=== PATIENT | male | born 1960 | race Caucasian/White ===

== ENCOUNTER → 2020-07-24 01:32 | Outpatient (CLI) | payer MEDICARE, SELFPAY ==
[2020-07-24 18:55] LABS: SARS-CoV-2 RNA PCR Negative
== END ==
PROVIDERS: PCP Internal Medicine; Visit Provider Internal Medicine Critical Care Medicine
DX: R68.89 Other general symptoms and signs (principal); Z20.822 Contact with and (suspected) exposure to COVID-19
CPT/HCPCS: C9803; U0003; U0005

== ENCOUNTER 2020-07-26 10:10 | Outpatient (CLI) | payer MEDICARE, SELFPAY ==
--- NOTE | 2020-08-10 14:02 | WPDSLEEPSTUD ---
Sleep Study Ordering Provider: Manish Crooks, Interpreting Physician: Sushma Suresh MD Sleep Study Type: CPAP Titration Height: 1.85 m Weight: 193.214 kg Body Mass Index: 56.2 Neck Circumference (inches): 23 [place]: 3 Reason for Sleep Study Obstructive sleep apnea, needs new equipment, needs to have a new CPAP pressure Sleep History Aman Newberry is a 60 year old man with obstructive sleep apnea who is in need of new equipment. He prior study was over 5 years ago, and the records are not available to review. He does not currently have an established DME company. This was ordered as a split night study to document his need for CPAP. He was not able to fall asleep for the baseline portion study. The tech placed him on CPAP in order to allow the patient to fall asleep more comfortably. He could not tolerate pressures at CPAP 6 cm and 10 cm, and after being switched to BiPAP at 12/8 then 16/, still he was not able to sleep. He was hypoxemic with saturation ranging between 81 and 84% at all settings. He decided to leave A at 1:40 a.m. [facility] Past Medical History Medical History (Updated 08/10/20 @ 14:41 by Sushma Suresh MD) COPD (chronic obstructive pulmonary disease) Eczema Essential hypertension HLD (hyperlipidemia) KATIE (obstructive sleep apnea) Type 2 diabetes mellitus Family History Family History (Updated 05/13/19 @ 07:56 by Gloria Noel [facility]) Mother Hypertension Social History Social History Smoking status: Current every day smoker Smoking end date: 03/16/14 Alcohol intake: never Medications Home Medications Medication Instructions Recorded Confirmed Type lbhqqgcl-xle-kjqxn acid 300 1 tablet PO DAILY 05/13/19 03/02/20 History mcg-lycopene 600 mcg-lutein 300 mcg tablet sertraline 50 mg tablet 50 mg PO DAILY #90 tablet 11/14/19 03/02/20 Rx albuterol sulfate 90 mcg/actuation 2 puff INHALATION Q4-6H PRN #6.7 g 02/23/20 03/02/20 Rx aerosol inhaler amlodipine 10 mg tablet 10 mg PO DAILY #90 tablet 03/02/20 03/02/20 Rx amoxicillin 875 mg-potassium 1 tablet PO Q12H #14 tablet 03/02/20 03/02/20 Rx clavulanate 125 mg tablet lisinopril 40 mg tablet See Rx Instructions .ROUTE 04/09/20 Rx .COMPLEX #90 tablet triamcinolone acetonide 0.1 % 1 applic TOPICAL BID #15 g 04/17/20 Rx topical cream Medications: Other medications on his office note include : metformin 1000 mg twice a day Spiriva Respimat 2.5 mcg two puffs daily Sleep Procedure This test was performed using the Fronto multiple channel system including EOG, EEG, submental EMG, EKG, nasal and oral airflow using thermistors and nasal pressure sensors, chest and abdominal belts for body position data, and pulse oximetry. Video monitoring was also performed. The study was scored using [facility] guidelines. The patient was started on CPAP using a large ResMed Phillips FX nasal mask and heated humidity at 6 cm, increased to 10cm, then switched to BiPAP /8, increased to 16/12. At one point, he wanted to change masks, and used a Mirage nasal mask, with the final mask being the Phillips FX nasal mask. The patient was not able to fall asleep, and decided to go home against medical advice at .... Sleep Architecture The recording time was 61.6 minutes at baseline, without sleep. During the attempts at titration, the recording time was 62.8 minutes without sleep. Respiratory Analysis There were not events as the patient had no sleep. Arousals Not applicable. Periodic Limb Movements Not applicable Oximetry Data During the baseline portion, the lowest saturation was 82% with 17 minutes, 17.6% of the time, spent below 88%. During the attempted titration, the lowest saturation was 81% with 40.7 minutes, 50% of the time, spent below 88%. Snoring Profile No snoring noted as the patient was not asleep. Cardiac Profile EKG showed sinus rhythm and sinus bradycardia with a mean heart rate of 65. EEG Profile EEG w
[2020-08-10 14:39] VITALS: BMI 56.2
== END 2020-07-26 10:11 | disposition home or self-care (01) ==
LOC: ANHCSM 10:10
PROVIDERS: PCP Internal Medicine; Visit Provider Internal Medicine
DX: G47.30 Sleep apnea, unspecified (principal); G47.33 Obstructive sleep apnea (adult) (pediatric); R09.02 Hypoxemia
CPT/HCPCS: 95811

== ENCOUNTER 2024-07-20 17:42 | Inpatient (IN) | payer MEDICARE, SELFPAY ==
[2024-07-20] VITALS (9 sets, daily range): BP systolic 152–157; BP diastolic 93–138; PULSE 102–124; RESP 27–36; TEMP 36.8–37; O2SAT 94–97; BMI 60.2
--- NOTE | ~2024-07-20 | CT_ITS ---
CT Scan of the Chest without Contrast: Clinical Indication: Pneumonia Technique: Contiguous sections were acquired throughout the chest without intravenous contrast. Dose reduction technique was used on this scan by utilizing automated exposure control and iterative recon struction technique. The dose-length product (DLP) was 1283.88 mGy-cm. Findings: There is no evidence of any significant mediastinal, hilar or axillary lymphadenopathy. The mediastin al soft tissues appear normal. There is no evidence of pleural or pericardial effusion. There is mild bibasilar atelectasis or scarring. No definite evidence for pneumonia. Images through the upper abdomen reveal no abnormalities. Impression: Mild bibasilar atelectasis or scarring, otherwise clear lungs. Reviewed, dictated and finalized at location . Impression: Mild bibasilar atelectasis or scarring, otherwise clear lungs.
--- NOTE | ~2024-07-20 | US_ITS ---
EXAMINATION: US venous doppler [facility] DATE: 07/21/2024 14:39 INDICATION: Dyspnea TECHNIQUE: Grayscale ultrasound images without and with compression and Doppler ultrasound images of the bilateral lower extremity veins were obtained. COMPARISON: None. FINDINGS: The visualized portions of right common femoral vein, profunda (deep) femoral vein, femoral vein, pop liteal vein, posterior tibial veins, peroneal veins, gastrocnemius vein and greater saphenous vein ou tflow are patent. The visualized portions of left common femoral vein, profunda femoral vein, femoral vein, popliteal v ein, posterior tibial veins, peroneal veins, gastrocnemius vein and greater saphenous vein outflow ar e patent. IMPRESSION: 1. No deep venous thrombosis in either lower limb. Reviewed, dictated and finalized at location A.
--- NOTE | ~2024-07-20 | XR_ITS ---
CHEST RADIOGRAPH CLINICAL HISTORY: SOA . COMPARISON: None available TECHNIQUE: Single portable view of the chest. FINDINGS The cardiomediastinal silhouette is enlarged. The lungs are clear. IMPRESSION: No focal infiltrate or effusion. Reviewed, dictated and finalized at location A.
--- NOTE | 2024-07-20 17:54 | ECG_ITS ---
Test Date: 2024-07-20 17:56:45 Measurements Intervals [place] Rate: 109 P: 0 NM: 0 QRS: -20 QRSD: 113 T: 78 QT: 323 QTc: 435 Interpretive Statements ATRIAL FIBRILLATION WITH RAPID VENTRICULAR RESPONSE LOW QRS VOLTAGE [QRS DEFLECTION < 0.5/1.0 mV IN LIMB/CHEST LEADS] INCOMPLETE RIGHT BUNDLE BRANCH BLOCK [90+ ms QRS DURATION, TERMINAL R IN V1/V2, 40+ ms S IN I/aVL/V4/V5/V6] ANTEROSEPTAL MYOCARDIAL INFARCTION , OF INDETERMINATE AGE [40+ ms Q WAVE IN V1-V4] No previous ECG available for comparison Electronically Signed On 07-21-2024 14:10:27 CDT by Joycelyn Adams
[2024-07-20 18:19] LABS: Basophils Percent Auto 0.3 % (0.2-1.2); Eosinophils Absolute Auto 0.1 K/mm3 (0-0.3); Eosinophils Percent Auto 0.3 % (0-4.4); Hematocrit 51.8 % (42.0-52.0); Immature Granulocyte Absolute 0.07 K/mm3 (0.00-0.031); Immature Granulocyte Percent A 0.5 % (0-0.5); Lymphocytes Absolute Auto 1.95 K/mm3 (0.9-3.2); Lymphocytes Percent Auto 12.7 % (18.3-44.2); Mean Corpuscular Hemoglobin 28.5 pg (26-34); Mean Corpuscular Volume 98.3 fl (80-100); Mean Platelet Volume 9.5 fl (7.4-10.4); Monocytes Percent Auto 6.8 % (2.6-8.5); Neutrophils Absolute Auto 12.2 K/mm3 (1.3-6.7); Neutrophils Percent Auto 79.4 % (45.5-73.1); Nucleated Red Blood Cells Perc 0.1 % (0.0-0.2); Platelet Count Result 226 k/mm3 (150-375); Red Blood Count 5.27 M/mm3 (4.6-6.20); Red Cell Distribution Width 14.7 % (11.5-14.5); White Blood Count 15.3 K/mm3 (4.5-10.0)
--- OUTSIDE RECORDS SUMMARY | 2024-07-20 18:19 | XMS_ITS | Clinical Summary ---
Author Organization [facility] Address [address] 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
--- OUTSIDE RECORDS SUMMARY | 2024-07-20 18:19 | XMS_ITS | Clinical Summary ---
Author Organization [facility] Address [address] [facility] [address] [place] [address] Care Team Providers Care Emergency Man Name Role Phone Unavailable Primary Care Provider Unavailabl e Social History Tobacco Use Types Packs/Day Years Used Date Smoking Tobacco: Never Assessed Sex and Gender Information Value Date Recorded Sex Assigned at Not on file Legal Sex Male 8:07 PM CDT Gender Identity Not on file Sexual Orientation Not on file Plan of Treatment Health Maintenance Due Date Last Done Comments Colorectal Cancer Screening Colonoscopy (10 Years) 1958 Hepatitis C 1976 DTaP, Tdap and Td Vaccines ( 1 - Tdap) 1977 Pneumococcal Vaccine: 50+ Ye ars (1 of 1 - PCV) 2008 Zoster Vaccines (1 of 2) 2008 COVID-19 Vaccine ( - 2023-2 5 season) 2023 RSV Immunization or 60+ Years (1 - 1-dose 75+ series) 2033 Meningococcal B Vaccine Aged Out No l onger eligible based on patient's age to complete this topic Meningococcal Vaccine Aged Out No delonte slade eligible based on patient's age to complete this topic RSV Immunizations Under 20 Months Aged Out No longer eligible based on patient's age to complete this topic
--- OUTSIDE RECORDS SUMMARY | 2024-07-20 18:19 | XMS_ITS | Encounter Summary ---
Author Organization [facility] Address 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
--- OUTSIDE RECORDS SUMMARY | 2024-07-20 18:19 | XMS_ITS | CONTINUITY OF CARE DOCUMENT ---
Author Name black cleaning Address Unknown Organization [facility] Address [address] [place] [address] Phone [phone] Care Team Providers Care Terrazzo Supervisor Name Role Phone Rogelio VOGT, Samaria Unavailable MOHAN OLIVER MD Unavailable MOHAN OLIVER MD Unavailable PROBLEMS Condition Status Date Provider Notes Gout active MOHAN OLIVER MD Obesity active MOHAN OLIVER MD HTN essential active MOHAN OLIVER MD Depression completed - MOHAN OLIVER MD Cellulitis and abscess of foot, except toes completed - MOHAN OLIVER MD Tobacco use, quit active MOHAN OLIVER MD ENCOUNTERS Date Type Provider Location Encounter Diag nosis - In-person encounter Office Visit MOHAN OLIVER MD [place] [facility] - In-person encounter Office Visit MOHAN OLIVER MD [place] [facility] DepressionCellulitis and abscess of foot, except toesTobacco use, quit - In-person encounter Office Visit MOHAN OLIVER MD [place] [facility] - In-person encounter Office Visit Ameena Ryan [place] [facility] - In-person encounter Office Visit Ameena Ryan [place] [facility] - In-person encounter Office Visit MOHAN OLIVER MD [place] [facility] - In-person encounter Office Visit MOHAN OLIVER MD [place] [facility] GoutObesityHTN essential - In-person encounter Office Visit [facility] Office - In-person encounter Office Visit [facility] Office - In-person encounter Office Visit [facility] Office HISTORY OF MEDICATION USE Medication Status Instructions Dates Provider Indications Com ments CEPHALEXIN 500 MG ORAL TABLET active one capsule 4 times daily until all taken 5 Dejan Alba RN SERTRALINE HCL 50 MG ORAL TABLET active ONE TABLET DAILY 0 MOHAN OLIVER MD TOPICORT 0.25 % EXTERNAL CREAM completed APPLY LOCALLY TWICE DAILY 9 - 3 MOHAN OLIVER MD HYDROXYZINE HCL 50 MG ORAL TABLET completed ONE TABLET TWICE DAILY - 3 MOHAN OLIVER MD PREDNISONE 20 MG ORAL TABLET completed ONE TABLET TWICE DAILY 9 - 3 MOHAN OLIVER MD SAPHRIS 10 MG SUBLINGUAL TABLET SUBLINGUAL completed ONE TABLET AT BEDTIME 0 - 9 MOHAN OLIVER MD DIVALPROEX SODIUM 500 MG ORAL TABLET DELAYED RELEASE completed ONE TABLET DAILY 0 - 9 MOHAN OLIVER MD ZOLOFT 50 MG ORAL TABLET completed ONE TABLET DAILY 0 - 2 MOHAN OLIVER MD POTASSIUM CHLORIDE DELTA ER 10 MEQ ORAL TABLET EXTENDED RELEASE active ONE TABLET DAILY 0 MOHAN OLIVER MD LASIX 40 MG ORAL TABLET active ONE TABLET DAILY 0 MOHAN OLIVER MD LISINOPRIL 40 MG ORAL TABLET active ONE TABLET TWICE DAILY 0 MOHAN OLIVER MD INSURANCE PROVIDERS Payer name Policy type / Coverage type [place] [employer] party ID [place] [employer] Medicare [id number] HISTORY OF PROCEDURES Procedure Date Procedure Name Provider Procedure Notes S tatus ePrescribe - Check t his box if eRx is used MOHAN OLIVER MD completed
[2024-07-20] MEDS: IPRATROPIUM BR 0.02% INH SOLN 0.5 MG/2.5 ML VIAL 1.5 MG INHALATION (18:23)
[2024-07-20] MEDS: ALBUTEROL SULFATE NEB 2.5 MG/3 ML INH 15 MG INHALATION (18:24)
[2024-07-20 18:31] LABS: Alveolar/Arterial O2 Gradient 118.3 mmHg; Base Excess ABG 0.8 mEq/l (+/-2.0); Carboxyhemoglobin 3.2 % THb (0-2.0); Fractional Inspired Oxygen 36 %; HCO3 ABG 29.4 mEq/l (22.0-26.0); Methemoglobin ABG 0.3 %THb (0-1.5); Oxygen Content ABG 18.6 %vol (16.0-22.0); Oxygen Saturation ABG 89.3 % (95.0-100.0); PO2 ABG 64.3 mmHg (80.0-100.0); PO2 FiO2 Ratio Arterial Blood 1.79 %; Reduced Hemoglobin 10.5 %THb (0-5.0); Total Hemoglobin 15.4 g/dL (12.0-18.0)
[2024-07-20 18:34] LABS: Device NASAL CANNULA; Modified Allen's Test Pass; PCO2 ABG 63.9 mmHg (35.0-45.0); Site Drawn RIGHT RADIAL
[2024-07-20 18:38] LABS: Alanine Aminotransferase 48 U/L (6-50); Albumin Level 4.2 g/dL (3.5-5.1); Alkaline Phosphatase 93 U/L (38-126); Anion Gap 7 mmol/L (4-12); Aspartate Amino Transferase 79 U/L (17-59); Bilirubin,Total 0.8 mg/dL (0.2-1.3); Blood Urea Nitrogen 20 mg/dL (9-20); Carbon Dioxide 38 mmol/L (22-30); Chloride 96 mmol/L (98-107); Estimated CRCL calculation 135 ml/min; Estimated Glomerular Filt Rate > 60; Glucose 158 mg/dL (65-110); Potassium 4.4 mmol/L (3.4-5.0); Sodium 141 mmol/L (137-145)
[2024-07-20 18:39] LABS: Alanine Aminotransferase 49 U/L (6-50); Albumin Level 4.3 g/dL (3.5-5.1); Alkaline Phosphatase 98 U/L (38-126); Anion Gap 8 mmol/L (4-12); Aspartate Amino Transferase 81 U/L (17-59); Bilirubin,Total 0.9 mg/dL (0.2-1.3); Blood Urea Nitrogen 20 mg/dL (9-20); Carbon Dioxide 38 mmol/L (22-30); Chloride 96 mmol/L (98-107); Estimated CRCL calculation 135 ml/min; Estimated Glomerular Filt Rate > 60; Glucose 159 mg/dL (65-110); Potassium 4.4 mmol/L (3.4-5.0); Sodium 142 mmol/L (137-145)
[2024-07-20 18:52] LABS: Troponin I 0.013 ng/mL (0.000-0.034)
[2024-07-20 19:14] LABS: NT Pro B Type Natriuretic Pept 2930 pg/mL (19.9-100)
--- NOTE | 2024-07-20 19:31 | ED_ITS ---
HPI - SOB/Dyspnea General Chief Complaint: Shortness of Breath/Dyspnea Stated Complaint: SOB History of Present Illness HPI Narrative: Patient is a 64-year-old male who presents ER with shortness of breath. Worsening over last 2 weeks. Significantly worsened by exertion. History of KATIE and wears BiPAP at home. No chest pain. No productive cough. No fevers or chills. Denies chest pressure. Patient with rapid heart rate that is irregular. Denies history of atrial fibrillation. Patient also reports 2 weeks ago he began get infection on his face where he had yellowed using. He has been applying topical antibiotic without improvement. Related Data Home Medications ?Medication ?Instructions ?Recorded ?Confirmed ?Last Taken ?Type suvsmfkw-xj-xhrgn 300 mcg-K 60 1 tablet PO DAILY 05/13/19 03/02/20 Unknown History mcg-lycop 600 mcg-lutein 300 mcg tablet (Centrum Silver Men) Allergies Allergy/AdvReac Type Severity Reaction Status Date / Time metformin Allergy Unknown itching, Verified 03/02/20 08:40 SOB Review of Systems 2 Review of Systems: All systems reviewed & are unremarkable except as noted in HPI and below Constitutional: Constitutional: Reports no additional constitutional complaints ENT: Reports system reviewed and no additional complaints, except as documented Cardiovascular: Cardiovascular: Reports no additional cardiovascular complaints Respiratory: Respiratory: Reports no additional respiratory complaints Gastrointestinal: Gastrointestinal: Reports no additional gastrointestinal complaints Integumentary/Breasts: Skin/Breast: Reports system reviewed and no additional complaints, except as docu [facility] Past Medical History Medical History (Updated 07/20/24 @ 22:43 by Pedro Kraft MD) Eczema KATIE (obstructive sleep apnea) Type 2 diabetes mellitus COPD (chronic obstructive pulmonary disease) HLD (hyperlipidemia) Essential hypertension Family History Family History (Updated 05/13/19 @ 07:56 by Gloria Noel CMA) Mother Hypertension Social History Social History Smoking status: Current every day smoker Smoking end date: 03/16/14 Alcohol intake: never Exam 2 Narrative: GENERAL: Ill-appearing, morbidly obese, and in no acute distress. HEAD: Normocephalic, atraumatic. EYES: PERRL and EOMI. ENT: Mucous membranes moist. CHEST: Mild respiratory distress with diffuse wheezing. HEART: Irregular irregular rate and rhythm that is tachycardic. Normal peripheral pulses. ABDOMEN: Soft, nontender, nondistended. EXTREMITIES: Normal range of motion. No edema. SKIN: Warm, dry. Impetigo like infection to the face with erythema of the skin in but most notably over the chin with cracks in the skin with yellow crusting. NEURO: Alert and oriented x3. PSYCH: Normal mood and affect. Course Course Emergency Course: Patient feeling improved with BiPAP. Lungs improving with hour long nebulizer treatment. Patient with persistent tachycardia. Will give diltiazem. Recommend admission hospitalist service. Patient did receive Decadron from EMS. Vital Signs Vital signs: Vital Signs Temperature 98.6 F 07/20/24 17:51 Pulse Rate 102 H 07/20/24 17:51 Respiratory Rate 28 H 07/20/24 17:51 Blood Pressure 157/138 H 07/20/24 17:51 Pulse Oximetry 96 07/20/24 17:51 Oxygen Delivery Nasal Cannula 07/20/24 17:51 Oxygen Flow Rate 4 07/20/24 17:51 Temperature 98.6 F 07/20/24 17:51 Pulse Rate 112 H 07/20/24 21:35 Respiratory Rate 27 H 07/20/24 21:35 Blood Pressure 157/138 H 07/20/24 17:51 Pulse Oximetry 94 07/20/24 21:35 Oxygen Delivery BiPAP 07/20/24 21:35 Oxygen Flow Rate 4 07/20/24 18:14 MDM - SOB/Dyspnea Lab Data 07/20/24 18:02 07/20/24 18:04 Labs: Lab Results 07/20/24 07/20/24 07/20/24 Range/Units 18:02 18:04 18:15 WBC 15.3 H (4.5-10.0) K/mm3 RBC 5.27 (4.6-6.20) M/mm3 Hgb 15.0 (14.0-18.0) g/dL Hct 51.8 (42.0-52.0) % MCV 98.3 (80-100) fl MCH 28.5 (26-34) pg MCHC 29.0 L (32-36) g/dl RDW 14.7 H (11.5-14.5) % Plt Count 226 (150-375) k/mm3 MPV 9.5 (7.4-10.4) fl Immature Gran % (Auto) 0.5 (0-0.5) % Neut % (Auto) 79.4 H (45.5-73.1) % Lymph % (Auto) 12.7 L (18.3-44.2) % Bell % (Auto) 6.8 (2.6-8.5) % Eos % (Auto) 0.3 (0-4.4) % Baso % (Auto) 0.3 (0.2-1.2) % Lymph # (Auto) 1.95 (0.9-3.2) K/mm3 Bell # (Auto) 1.0 H (0.1-0.6) K/mm3 Eos # (Auto) 0.1 (0-0.3) K/mm3 Baso # (Auto) 0.0 (0.0-0.1) K/mm3 Abs Immat Gran (auto) 0.07 H (0.00-0.031) K/mm3 Absolute Neuts (auto) 12.2 H (1.3-6.7) K/mm3 Absolute Nucleated RBC 0.020 H (0.0-0.012) K/mm3 Nucleated RBC % 0.1 (0.0-0.2) % Methemoglobin 0.3 (0-1.5) %THb Sodium 142 141 (137-145) mmol/L Potassium 4.4 4.4 (3.4-5.0) mmol/L Chloride 96 L 96 L (98-107) mmol/L Carbon Dioxide 38 H 38 H (22-30) mmol/L Anion Gap 8 7 (4-12) mmol/L BUN 20 20 (9-20) mg/dL Creatinine 0.82 0.82 (0.7-1.3) mg/dL Estim Creat Clear Calc 135 135 ml/min Estimated GFR > 60 > 60 (59 - ) Glucose 159 H 158 H (65-110) mg/dL Calcium 9.0 9.0 (8.4-10.2) mg/dL Total Bilirubin 0.9 0.8 (0.2-1.3) mg/dL AST 81 H 79 H (17-59) U/L ALT 49 48 (6-50) U/L Alkaline Phosphatase 98 93 (38-126) U/L Troponin I 0.013 (0.000-0.034) ng/mL NT-Pro-B Natriuret Pep 2930 H (19.9-100) pg/mL Total Protein 9.0 H 9.0 H (6.3-8.2) g/dL Albumin 4.3 4.2 (3.5-5.1) g/dL Influenza A (RT-PCR) Influenza B (RT-PCR) RSV (RT-PCR) SARS-CoV-2 RNA (RT-PCR) 07/20/24 Range/Units 21:49 WBC (4.5-10.0) K/mm3 RBC (4.6-6.20) M/mm3 Hgb (14.0-18.0) g/dL Hct (42.0-52.0) % MCV (80-100) fl MCH (26-34) pg MCHC (32-36) g/dl RDW (11.5-14.5) % Plt Count (150-375) k/mm3 MPV (7.4-10.4) fl Immature Gran % (Auto) (0-0.5) % Neut % (Auto) (45.5-73.1) % Lymph % (Auto) (18.3-44.2) % Bell % (Auto) (2.6-8.5) % Eos % (Auto) (0-4.4) % Baso % (Auto) (0.2-1.2) % Lymph # (Auto) (0.9-3.2) K/mm3 Bell # (Auto) (0.1-0.6) K/mm3 Eos # (Auto) (0-0.3) K/mm3 Baso # (Auto) (0.0-0.1) K/mm3 Abs Immat Gran (auto) (0.00-0.031) K/mm3 Absolute Neuts (auto) (1.3-6.7) K/mm3 Absolute Nucleated RBC (0.0-0.012) K/mm3 Nucleated RBC % (0.0-0.2) % Methemoglobin (0-1.5) %THb Sodium (137-145) mmol/L Potassium (3.4-5.0) mmol/L Chloride (98-107) mmol/L Carbon Dioxide (22-30) mmol/L Anion Gap (4-12) mmol/L BUN (9-20) mg/dL Creatinine (0.7-1.3) mg/dL Estim Creat Clear Calc ml/min Estimated GFR (59 - ) Glucose (65-110) mg/dL Calcium (8.4-10.2) mg/dL Total Bilirubin (0.2-1.3) mg/dL AST (17-59) U/L ALT (6-50) U/L Alkaline Phosphatase (38-126) U/L Troponin I (0.000-0.034) ng/mL NT-Pro-B Natriuret Pep (19.9-100) pg/mL Total Protein (6.3-8.2) g/dL Albumin (3.5-5.1) g/dL Influenza A (RT-PCR) Pending Influenza B (RT-PCR) Pending RSV (RT-PCR) Pending SARS-CoV-2 RNA (RT-PCR) Pending ABG Data ABG results: 07/20/24 18:15 Puncture Site Right radial ABG pH 7.280 L* ABG pCO2 63.9 H* ABG pO2 64.3 L ABG PO2/FiO2 Ratio 1.79 ABG HCO3 29.4 H ABG O2 Saturation 89.3 L ABG O2 Content 18.6 ABG Base Excess 0.8 A-a Gradient 118.3 Oxyhemoglobin 86.0 L* Carboxyhemoglobin 3.2 H Reduced Hemoglobin 10.5 H Total Hemoglobin 15.4 O2 Delivery Device Nasal cannula O2 Liters/Min 4.0 FiO2 36 Imaging Data Radiologist's impression: ITS Impressions Chest X-Ray 07/20/24 18:24 IMPRESSION: No focal infiltrate or effusion. ECG Data EKG #1: ECG completion date: 07/20/24 ECG completion time: 17:56 EKG Interpretation: tachycardia (109), atrial fibrillation, non-specific ST changes, normal QRS, RBBB (incomplete) and normal QT Critical Care Time Critical Care Time Critical Care Time: Yes Total Critical Care Time: 35 Discharge Plan Discharge Clinical Impression: Atrial fibrillation with RVR, Hypercapnia, Impetigo COPD (chronic obstructive pulmonary disease) Qualifiers: COPD type: unspecified COPD Qualified Code(s): J44.9 - Chronic obstructive pulmonary disease, unspecified Patient Disposition: Still a Patient Condition: Stable Patient Language: Argentine Prescriptions: No Action Centrum Silver Men 300-600-300 mcg tablet 1 tablet PO DAILY amlodipine 10 mg tablet 10 mg PO DAILY Qty: 90 3RF amoxicillin-pot clavulanate [Augmentin] 875-125 mg tablet 1 tablet PO Q12H Qty: 14 0RF sertraline 50 mg tablet 50 mg PO DAILY Qty: 90 3RF triamcinolone acetonide 0.1 % cream 1 applic topical BID Qty: 15 0RF Rx Instructions: Apply to rash (elbow) BID x 7 days. PLEASE CONTACT OFFICE FOR APPOINTMENT. albuterol sulfate [ProAir HFA] 90 mcg/actuation HFA aerosol inhaler 2 puff INHALATION Q4-6H PRN (Reason: shortness of breath or wheezing) Qty: 6.7 2RF Rx Instructions: LAST REFILL UNTIL SEEN lisinopril 40 mg tablet See Rx Instructions .ROUTE .COMPLEX Qty: 30 0RF Dose Instruction: TAKE 1 TABLET BY MOUTH DAILY Rx Instructions: TAKE 1 TABLET BY MOUTH DAILY Follow-up/Referrals: Valeriy,Manish Richardson MD [Primary Care Provider] -
[2024-07-20] MEDS: dilTIAZem HCl INJ 25 MG/5 ML VIAL 10 MG IV PUSH (19:36)
--- NOTE | 2024-07-20 19:51 | PC.NURSE ---
Patient repositioned in bed at this time. patient agitated and restless
--- NOTE | 2024-07-20 20:02 | PC.NURSE ---
pt is sitting on the edge of the bed, patient educated that it is not safe to sit like this and it could result in the bed flipping over. patient is talking and pulling at his CPAP mask. Patient talking on the phone and was provided education that the mask is not as effective if he is talking on the phone. patient stated that I don't really care, I am a of these masks The patient was educated that we're utilitizing the cpap because he is unable to breathe and not because it's something that he uses every night. patient stated that he is tired of dealing with all of this and just wants to leave. patient educated that we can not keep him here against his will and if he wants to sign out he is more than welcome to. Patient responded with I fully intend to, I'm sick of being stuck in this bed I can't just lay here Patient given education that he is more than welcome to sign out and he stated I want to I am so sick of dealing with your mouth AMA papers being worked on at this time
--- NOTE | 2024-07-20 20:20 | PC.NURSE ---
Patient called this RN back into the room and stated I'm sorry for being difficult, I am not trying to sign out. I talked to my sister and she won't call again tonmalaika and I won't talk on the phone any more if i can just please sit on the edge of the bed Patient provided with education about risks of sitting on edge of the bed multiple times. that it could cause the bed to flip over and the patient get injured, that the patient could slide off the edge of the bed, that his cpap hose is easier dislodged in this position. patient continuously insists on not laying appropriately in the bed.
--- NOTE | 2024-07-20 21:09 | PC.NURSE ---
Patient insistent on signing out AMA, Dr. Kraft called to bedside. Patient decided to stay in ER. patient continues to talk on the phone and pull on his CPAP mask even though we have had many conversations about the importance of this helping him to breathe, and that we are a step away from needing a breathing tube. Patient states he understands he's Just uncomfortable
[2024-07-20 22:29] LABS: Influenza A QL RT-PCR Negative (Negative); Influenza B QL RT-PCR Negative (Negative); RSV RNA, RT-PCR Negative (Negative); SARS-CoV-2 RNA PCR Negative (Negative)
--- NOTE | 2024-07-20 22:29 | PC.NURSE ---
Patient continues to take off bipap mask because he's had it on for like 9 hours already, I don't even wear it this long when I sleep
--- NOTE | 2024-07-20 23:31 | ADMGEN ---
This patient, Aman Newberry, was admitted to IMU Room 202-. Patient/family oriented to hospital policies and general routines including ID bracelet, bed and alarms, visiting hours, pain management, procedures, bathroom and other care routines, personal items, smoking policy, room service/diet, and visiting hours. Information on how to activate the Rapid Response Team has been discussed. Patient/Family are encouraged to report perceived risks to care and to ask questions if they do not understand what they are told or what they should do.
[2024-07-20] MEDS: methylPREDNISolone SOD SUCC 125 MG VIAL 60 MG IV PUSH (23:52)
[2024-07-21] VITALS (27 sets, daily range): BP systolic 109–145; BP diastolic 42–100; PULSE 81–116; RESP 16–31; TEMP 36.4–37.1; O2SAT 89–96
--- NOTE | 2024-07-21 | ECHO_ITS ---
Patient Info Name: Aman Newberry Age: 64 years : 1960 Gender: Male Ht: 72 in Wt: 444 lbs BSA: 3.32 m2 HR: 101 bpm BP: 145 / 86 mmHg Heart Rhythm: Atrial Fibrillation Exam Date: 07/21/2024 9:40 AM Exam Location: Echo Lab Patient Status: Inpatient Admit Date: 07/21/2024 Staff Ordering Physician: Ny Jones DO [employer]ty Manufacturing Supervisor: Bety Stein RDCS Attending Provider: Ny Jones DO Referring Physician: Karen BECKHAM; Exam Type: CA echo doppler color flow Study Info Indications - SOB, New Afib Complete two-dimensional, color flow and Doppler transthoracic echocardiogram is performed with contrast to opacify the left ventricle and to improve the deliniation of the left ventricle endocardial borders. Summary 1. Technically suboptimal study due to poor sonographic images. 2. Definity contrast administered improved wall motion interpretation. 3. Left ventricular chamber dimension is moderately enlarged. 4. Left ventricular systolic function is normal, estimated at 60-65%. 5. There is mild concentric increased left ventricular wall thickness. 6. The left ventricular diastolic function is indeterminate as tissue doppler was not performed.. 7. Atrial fibrillation. 8. Left atrial chamber dimension is mildly enlarged. 9. Right atrial chamber dimension is moderately enlarged. 10. There is mild aortic valve sclerosis. Left Ventricle Technically suboptimal study due to poor sonographic images. Definity contrast administered improved wall motion interpretation. The left ventricular diastolic function is indeterminate as tissue doppler was not performed.. Atrial fibrillation. Left ventricular chamber dimension is moderately enlarged. Left ventricular systolic function is normal, estimated at 60-65%. There is mild concentric increased left ventricular wall thickness. Right Ventricle Right ventricular systolic function is normal based on a normal TAPSE 1.9 cm. Right ventricular chamber dimension is not well visualized. Left Atria Left atrial chamber dimension is mildly enlarged. Right Atria Right atrial chamber dimension is moderately enlarged. Aortic Valve The aortic valve is trileaflet. There is mild aortic valve sclerosis. There is no aortic valve stenosis. There is no aortic valve regurgitation. Pulmonic Valve There is no pulmonic regurgitation. Mitral Valve There is no mitral valve stenosis. There is no mitral valve regurgitation. Tricuspid Valve There is no tricuspid valve regurgitation. Pericardium/Pleural There is no pericardial effusion. Inferior Vena Cava Inferior vena cava is not well visualized. Aorta The aortic root size at the sinus of Valsalva is normal. Left Ventricular Outflow Tract Name Value Normal LVOT 2D LVOT Diameter 2.1 cm LVOT Doppler LVOT Peak Gradient 2 mmHg LVOT Mean Gradient 1 mmHg LVOT VTI 21 cm LVOT VTI/AV VTI Ratio 0.6 LVOT Stroke Volume 71 ml LVOT CO 11.7 l/min LVOT CI 3.5 l/min/m2 Pulmonic Valve Name Value Normal RVOT Doppler RVOT Peak Gradient 5 mmHg PV Doppler PV Peak Gradient 6 mmHg Mitral Valve Name Value Normal MV Doppler MV Decel Tyrrell 701 cm/s2 MV PHT 41 ms MV Area (PHT) 5.3 cm2 4.0-5.0 MV Diastolic Function MV E Peak Velocity 100 cm/s MV A Peak Velocity 1 cm/s MV E/A 82.1 MV Decel Time 143 ms Tricuspid Valve Name Value Normal Estimated PAP/RSVP RA Pressure 5 mmHg <=5 Aortic Valve Name Value Normal AV Doppler AV Peak Velocity 156 cm/s AV Peak Gradient 7 mmHg AV Mean Gradient 4 mmHg AV VTI 34 cm AV Area (Cont Eq VTI) 2.1 cm2 >=3.0 AV Area (Cont Eq Adin) 2.0 cm2 AV Regurgitation 2D LVOT Area 3.4 cm2 Ventricles Name Value Normal LV Dimensions 2D/MM IVS Diastolic Thickness (2D) 1.2 cm 0.6-1.0 LVID Diastole (2D) 6.3 cm 4.2-5.8 LVIW Diastolic Thickness (2D) 1.2 cm 0.6-1.0 LVID Systole (2D) 4.6 cm 2.5-4.0 LVOT Diameter 2.1 cm LV Mass (2D Cubed) 352.78 g 88.00-224.00 LV Mass Index (2D Cubed) 106 g/m2 49-115 Relative Wall Thickness (2D) 0.39 LV Fractional Shortening/Ejection Fraction 2D/MM LV Fractional Shortening (2D) 27 % 25-43 LV EF (2D Teicholz) 52 % 52-72 LV Diastolic Volume (4C MOD) 185 ml LV EF (4C MOD) 71 % LV Diastolic Volume (2C MOD) 183 ml LV EF (2C MOD) 72 % LV Diastolic Volume (BP MOD) 206 ml 62-150 LV Diastolic Volume Index (BP MOD) 62 ml/m2 34-74 LV Systolic Volume (BP MOD) 54 ml 21-61 LV Systolic Volume Index (BP MOD) 16 ml/m2 11-31 LV EF (BP MOD) 74 % 52-72 LV Diastolic Length (4C) 7.7 cm LV Systolic Length (4C) 6.0 cm LV Stroke Volume (4C MOD) 127 ml Atria Name Value Normal LA Dimensions LA Volume (4C A-L) 75 ml RA Dimensions RA Area (4C) 27.1 cm2 <=18.0 Report Signatures
--- NOTE | 2024-07-21 01:15 | PM.IMHP ---
H&P: HPI History of Present Illness Date/Time: 07/21/24 01:15 Chief Complaint: Increased Shortness of breath for 2 weeks Review of Systems Review of Systems: 12 systems were reviewed with pertinent positives and negatives per HPI. Except as documented in the HPI, all other systems were reviewed and are negative. [facility] Past Medical History Medical History (Updated 07/21/24 @ 03:38 by Ny Jones DO) Class 3 severe obesity with body mass index (BMI) of 60.0 to 69.9 in adult Chronic respiratory failure with hypoxia and hypercapnia On home O2 Eczema KATIE (obstructive sleep apnea) With prior sleep study in 2010 recommend a BiPAP of Type 2 diabetes mellitus COPD (chronic obstructive pulmonary disease) HLD (hyperlipidemia) Essential hypertension Surgical History Surgical History (Updated 07/21/24 @ 03:28 by Ny Jones DO) History of back surgery Status post surgery of both feet Family History Family History (Updated 05/13/19 @ 07:56 by Gloria Noel CMA) Mother Hypertension Social History Social History Smoking packs per day: 0.5 Smoking cigarettes per day: 10.0 Years smoked: 40 Smoking pack-years: 20.00 Smoking status: Current every day smoker Tobacco type: cigarettes Smoking end date: 03/16/14 Alcohol intake: never Substance use: never Substance use type: does not use Do You Feel Safe in your Home?: Yes Lack of Transportation: No Lack of Food: Never True Current Housing: I Have Housing Concerned About Future Housing: No Difficulty Paying Gas/Electric Bills: No Difficulty Paying for Meds: No Currently Unemployed: No Education: High School Diploma/GED Difficulty w/ Childcare or Family Care: No Spiritual care concerns: No Meds Home Medications and Allergies Home Medications ?Medication ?Instructions ?Recorded ?Confirmed ?Type [id number] 300 mcg-K 60 1 tablet PO DAILY 05/13/19 07/20/24 History mcg-lycop 600 mcg-lutein 300 mcg tablet (Centrum Silver Men) sertraline 50 mg tablet 50 mg PO DAILY #90 tabs 11/14/19 07/20/24 Rx amlodipine 10 mg tablet 10 mg PO DAILY #90 tabs 03/02/20 07/20/24 Rx albuterol sulfate 90 mcg/actuation 2 puff inhalation Q4-6H PRN 04/03/21 07/20/24 Rx aerosol inhaler (ProAir HFA) shortness of breath or wheezing #6.7 grams lisinopril 40 mg tablet See Rx Instructions .Route 01/01/22 07/20/24 Rx .COMPLEX #30 tabs metformin 1,000 mg tablet 1,000 mg PO BID 07/20/24 07/20/24 History Allergies Allergy/AdvReac Type Severity Reaction Status Date / Time metformin Allergy Unknown itching, Verified 03/02/20 08:40 SOB Vital Signs Vital Signs - 24 hr 07/20/24 17:51 07/20/24 18:08 07/20/24 18:11 Temperature 98.6 F Pulse Rate 102 H 122 H Respiratory Rate 28 H Blood Pressure 157/138 H Pulse Oximetry 96 96 Oxygen Delivery Nasal Cannula Nasal Cannula Oxygen Flow Rate 4 4 07/20/24 18:14 07/20/24 19:15 07/20/24 19:37 Temperature Pulse Rate 124 H 124 H Respiratory Rate 30 H 36 H Blood Pressure Pulse Oximetry 96 97 Oxygen Delivery Nasal Cannula BiPAP Oxygen Flow Rate 4 07/20/24 21:35 07/20/24 22:40 07/20/24 23:25 Temperature 98.3 F Pulse Rate 112 H 109 H Respiratory Rate 27 H 32 H Blood Pressure 152/93 H Pulse Oximetry 94 95 95 Oxygen Delivery BiPAP BiPAP Oxygen Flow Rate 07/21/24 00:00 07/21/24 00:00 07/21/24 00:11 Temperature Pulse Rate 116 H 116 H 110 H Respiratory Rate 27 H 27 H Blood Pressure Pulse Oximetry 95 95 Oxygen Delivery BiPAP BiPAP Oxygen Flow Rate Exam Narrative: Weight 201.4 kg BMI 60.2 H&P: Results Labs Labs: Laboratory Tests 07/20/24 18:02 07/20/24 18:04 07/20/24 07/20/24 07/20/24 18:02 18:04 18:15 WBC 15.3 H RBC 5.27 Hgb 15.0 Hct 51.8 MCV 98.3 MCH 28.5 MCHC 29.0 L RDW 14.7 H Plt Count 226 MPV 9.5 Immature Gran % (Auto) 0.5 Neut % (Auto) 79.4 H Lymph % (Auto) 12.7 L [place] % (Auto) 6.8 Eos % (Auto) 0.3 Baso % (Auto) 0.3 Lymph # (Auto) 1.95 [place] # (Auto) 1.0 H Eos # (Auto) 0.1 Baso # (Auto) 0.0 Abs Immat Gran (auto) 0.07 H Absolute Neuts (auto) 12.2 H Absolute Nucleated RBC 0.020 H Nucleated RBC % 0.1 Puncture Site Right radial ABG pH 7.280 L* ABG pCO2 63.9 H* ABG pO2 64.3 L ABG PO2/FiO2 Ratio 1.79 ABG HCO3 29.4 H ABG O2 Saturation 89.3 L ABG O2 Content 18.6 ABG Base Excess 0.8 A-a Gradient 118.3 Oxyhemoglobin 86.0 L* Carboxyhemoglobin 3.2 H Methemoglobin 0.3 Reduced Hemoglobin 10.5 H Total Hemoglobin 15.4 O2 Delivery Device Nasal cannula O2 Liters/Min 4.0 FiO2 36 Sodium 142 141 Potassium 4.4 4.4 Chloride 96 L 96 L Carbon Dioxide 38 H 38 H Anion Gap 8 7 BUN 20 20 Creatinine 0.82 0.82 Estim Creat Clear Calc 135 135 Estimated GFR > 60 > 60 Glucose 159 H 158 H Calcium 9.0 9.0 Total Bilirubin 0.9 0.8 AST 81 H 79 H ALT 49 48 Alkaline Phosphatase 98 93 Troponin I 0.013 NT-Pro-B Natriuret Pep 2930 H Total Protein 9.0 H 9.0 H Albumin 4.3 4.2 Influenza A (RT-PCR) Influenza B (RT-PCR) RSV (RT-PCR) SARS-CoV-2 RNA (RT-PCR) 07/20/24 21:49 WBC RBC Hgb Hct MCV MCH MCHC RDW Plt Count MPV Immature Gran % (Auto) Neut % (Auto) Lymph % (Auto) [place] % (Auto) Eos % (Auto) Baso % (Auto) Lymph # (Auto) [place] # (Auto) Eos # (Auto) Baso # (Auto) Abs Immat Gran (auto) Absolute Neuts (auto) Absolute Nucleated RBC Nucleated RBC % Puncture Site ABG pH ABG pCO2 ABG pO2 ABG PO2/FiO2 Ratio ABG HCO3 ABG O2 Saturation ABG O2 Content ABG Base Excess A-a Gradient Oxyhemoglobin Carboxyhemoglobin Methemoglobin Reduced Hemoglobin Total Hemoglobin O2 Delivery Device O2 Liters/Min FiO2 Sodium Potassium Chloride Carbon Dioxide Anion Gap BUN Creatinine Estim Creat Clear Calc Estimated GFR Glucose Calcium Total Bilirubin AST ALT Alkaline Phosphatase Troponin I NT-Pro-B Natriuret Pep Total Protein Albumin Influenza A (RT-PCR) Negative Influenza B (RT-PCR) Negative RSV (RT-PCR) Negative SARS-CoV-2 RNA (RT-PCR) Negative Impressions Chest X-Ray 07/20/24 18:24 IMPRESSION: No focal infiltrate or effusion. Assessment and Plan Assessment and plan (1) Acute on chronic respiratory failure with hypoxia and hypercapnia: Code(s): J96.21 - Acute and chronic respiratory failure with hypoxia; J96.22 - Acute and chronic respiratory failure with hypercapnia Status: Acute Assessment and Plan: Likely due to a combination of COPD exacerbation and underlying obesity hypoventilation syndrome. Patient has been placed on BiPAP 02/20 with a rate of 22. The patient is pulling adequate tidal volumes ranging between 450 of 550 without leak of about 30. He has improved oxygen saturations on BiPAP with 30% FiO2. Will place patient on scheduled nebulizer treatments with Xopenex and Atrovent. Patient received Decadron per EMS x1. Will continue IV Solu-Medrol q.6 hours. Smoking cessation is imperative. Weight loss is also imperative. Given abdominal wall edema suspect some component of overlying heart failure likely right-sided. (2) Acute respiratory acidosis: Code(s): J96.02 - Acute respiratory failure with hypercapnia Status: Acute Assessment and Plan: Please see above (3) Atrial fibrillation with RVR: Code(s): I48.91 - Unspecified atrial fibrillation Status: Acute Assessment and Plan: Rate improved control after 1 dose of Cardizem in the ER. The patient likely has underlying chronic atrial fibrillation but this cannot be proven. Will obtain echocardiogram to further evaluate cardiac structure and function. After baseline EF is noted that will make decision determining had adequate rate controlling regimen. Chads Vasc score is at least 3. The patient will need long-term anticoagulant to reduce stroke risk. Will order Eliquis 5 mg p.o. b.i.d.. (4) Impetigo: Code(s): L01.00 - Impetigo, unspecified Status: Acute Assessment and Plan: Patient has impetigo covering the area of his vásquez. He reports he recently shaved with his electric razor that had not been cleaned in quite some time. He subsequently developed a yellow crusty rash. He reports that the puritis has improved but rash remains. Will order Bactroban ointment b.i.d. for 7 days. (5) Type 2 diabetes mellitus: Qualifiers: Diabetes mellitus emt intermediate insulin use: without group home use Diabetes mellitus complication status: without complication Qualified Code(s): E11.9 - Type 2 diabetes mellitus without complications Code(s): E11.9 - Type 2 diabetes mellitus without complications Status: Acute Assessment and Plan: Patient is relatively euglycemic but is receiving steroid therapy due to COPD exacerbation. Will add moderate dose sliding scale insulin with Accu-Cheks a.c. HS and will continue home metformin. (6) KATIE (obstructive sleep apnea): Code(s): G47.33 - Obstructive sleep apnea (adult) (pediatric) Status: Acute Assessment and Plan: BiPAP as discussed above (7) COPD (chronic obstructive pulmonary disease): Qualifiers: COPD type: COPD with acute exacerbation Qualified Code(s): J44.1 - Chronic obstructive pulmonary disease with (acute) exacerbation Code(s): J44.9 - Chronic obstructive pulmonary disease, unspecified Status: Acute Assessment and Plan: Steroids and nebulizers as discussed above (8) Edema of abdominal wall: Code(s): R60.0 - Localized edema Status: Acute Assessment and Plan: I suspect patient likely has right-sided heart failure and or diastolic dysfunction. Will give 1 dose of IV Lasix and obtain echocardiogram to further evaluate cardiac structure and function. Will monitor strict I&O's and daily weights. (9) Class 3 severe obesity with body mass index (BMI) of 60.0 to 69.9 in adult: Qualifiers: Obesity type: due to excess calories Serious obesity comorbidity presence: with serious comorbidity Qualified Code(s): E66.813 - Obesity, class 3; Z68.44 - Body mass index [BMI] 60.0-69.9, adult Code(s): E66.813 - Obesity, class 3; Z68.44 - Body mass index [BMI] 60.0-69.9, adult Status: Acute Assessment and Plan: Aggressive diet lifestyle modification recommended. Plan Patient has been admitted as observation status. Quality VTE Prophylaxis VTE prophylaxis: pharmacologic ordered (Rommel Elidinorah.) Hospitalist MIPS Advance Care Plan I have confirmed that the patient's Advanced Care Plan is present, code status is documented, or surrogate decision maker is listed in patient medical record.: Yes Medication Reconciliation I have utilized all available resources to obtain, update and review the patients current medications (includes all prescriptions, OTC, herbals, cannabis, and nutritional supplements).: Yes
[2024-07-21 04:45] LABS: Hemoglobin 14.3 g/dL (14.0-18.0); Mean Corpuscular HGB Conc 29.8 g/dl (32-36); Mean Corpuscular Hemoglobin 29.1 pg (26-34); Mean Corpuscular Volume 97.8 fl (80-100); Mean Platelet Volume 9.6 fl (7.4-10.4); Platelet Count Result 217 k/mm3 (150-375); Red Blood Count 4.91 M/mm3 (4.6-6.20); Red Cell Distribution Width 14.5 % (11.5-14.5); White Blood Count 13.2 K/mm3 (4.5-10.0)
[2024-07-21 04:54] LABS: Alveolar/Arterial O2 Gradient 67.7 mmHg; Base Excess ABG 0.7 mEq/l (+/-2.0); Fractional Inspired Oxygen 35 %; HCO3 ABG 31.7 mEq/l (22.0-26.0); Oxygen Content ABG 19.6 %vol (16.0-22.0); Oxygen Saturation ABG 93.2 % (95.0-100.0); Oxyhemoglobin 92.8 % THb (90.0-100.0); PO2 ABG 83.7 mmHg (80.0-100.0); PO2 FiO2 Ratio Arterial Blood 2.39 %
[2024-07-21 04:56] LABS: pH ABG 7.193 (7.350-7.450)
[2024-07-21 04:57] LABS: Device NON-INVASIVE VENT; Modified Allen's Test Pass; PCO2 ABG 84.4 mmHg (35.0-45.0); Site Drawn LEFT RADIAL
[2024-07-21 04:58] LABS: Non-Invasive Expiratory Pressure 8 CMH2O; Non-Invasive Inspiratory Pressure 16 CMH2O; Non-Invasive Vent Rate 22 /MIN
[2024-07-21 05:00] LABS: Anion Gap 8 mmol/L (4-12); Blood Urea Nitrogen 21 mg/dL (9-20); Calcium 8.6 mg/dL (8.4-10.2); Carbon Dioxide 33 mmol/L (22-30); Chloride 98 mmol/L (98-107); Estimated CRCL calculation 153 ml/min; Estimated Glomerular Filt Rate > 60; Glucose 220 mg/dL (65-110); Potassium 4.7 mmol/L (3.4-5.0); Sodium 139 mmol/L (137-145)
[2024-07-21] MEDS: FUROSEMIDE INJ 40 MG/4 ML VIAL IV PUSH ×2 (05:30→17:35)
[2024-07-21] MEDS: methylPREDNISolone SOD SUCC 125 MG VIAL 60 MG IV PUSH (05:30)
[2024-07-21 06:35] LABS: Alveolar/Arterial O2 Gradient 84.7 mmHg; Base Excess ABG 1.8 mEq/l (+/-2.0); Fractional Inspired Oxygen 35 %; HCO3 ABG 31.8 mEq/l (22.0-26.0); Oxygen Content ABG 19.1 %vol (16.0-22.0); Oxyhemoglobin 91.1 % THb (90.0-100.0); PO2 ABG 75.6 mmHg (80.0-100.0); PO2 FiO2 Ratio Arterial Blood 2.16 %; Total Hemoglobin 14.9 g/dL (12.0-18.0)
[2024-07-21 06:39] LABS: pH ABG 7.235 (7.350-7.450)
[2024-07-21 06:40] LABS: Device NON-INVASIVE VENT; Modified Allen's Test Pass; PCO2 ABG 76.8 mmHg (35.0-45.0); Site Drawn LEFT RADIAL
[2024-07-21 06:41] LABS: Non-Invasive Expiratory Pressure 20 CMH2O; Non-Invasive Inspiratory Pressure 25 CMH2O; Non-Invasive Vent Rate 26 /MIN
--- NOTE | 2024-07-21 07:43 | P.PNIM_ITS ---
Progress Note: A&P Assessment and Plan (1) Acute on chronic respiratory failure with hypoxia and hypercapnia: Code(s): J96.21 - Acute and chronic respiratory failure with hypoxia; J96.22 - Acute and chronic respiratory failure with hypercapnia Status: Acute Assessment and Plan: -Likely combination of COPD exacerbation and underlying obesity hypoventilation syndrome. -BiPAP /8 with a rate of 22. - Xopenex and Atrovent. -S/P Decadron per EMS x1. -Will continue IV Solu-Medrol q.6 hours. -Advised Smoking cessation and Weight loss (2) Acute respiratory acidosis: Code(s): J96.02 - Acute respiratory failure with hypercapnia Status: Acute Assessment and Plan: Please see above (3) Atrial fibrillation with RVR: Code(s): I48.91 - Unspecified atrial fibrillation Status: Acute Assessment and Plan: -Rate improved control after 1 dose of Cardizem in the ER. - ECHO shows Left ventricular systolic function is normal, estimated at 60-65%. -Chads Vasc score 3. -Eliquis 5 mg p.o. b.i.d.. (4) Impetigo: Code(s): L01.00 - Impetigo, unspecified Status: Acute Assessment and Plan: -shaved with his electric razor that had not been cleaned in quite some time. -Bactroban ointment b.i.d. for 7 days. -Keflex 500 mg PO BID x 5 days -Wound culture pending (5) Type 2 diabetes mellitus: Qualifiers: Diabetes mellitus complication status: without complication Diabetes mellitus fpc insulin use: without fpc use Qualified Code(s): E11.9 - Type 2 diabetes mellitus without complications Code(s): E11.9 - Type 2 diabetes mellitus without complications Status: Acute Assessment and Plan: Patient is relatively euglycemic but is receiving steroid therapy due to COPD exacerbation. Will add moderate dose sliding scale insulin with Accu-Cheks a.c. HS and will continue home metformin. (6) KATIE (obstructive sleep apnea): Code(s): G47.33 - Obstructive sleep apnea (adult) (pediatric) Status: Acute Assessment and Plan: BiPAP as discussed above (7) COPD (chronic obstructive pulmonary disease): Qualifiers: COPD type: COPD with acute exacerbation Qualified Code(s): J44.1 - Chronic obstructive pulmonary disease with (acute) exacerbation Code(s): J44.9 - Chronic obstructive pulmonary disease, unspecified Status: Acute Assessment and Plan: Steroids and nebulizers as discussed above (8) Edema of abdominal wall: Code(s): R60.0 - Localized edema Status: Acute Assessment and Plan: Left ventricular systolic function is normal, estimated at 60-65%. Start Lasix 40 mg PO BID x 3 days. (9) Class 3 severe obesity with body mass index (BMI) of 60.0 to 69.9 in adult: Qualifiers: Obesity type: due to excess calories Serious obesity comorbidity presence: with serious comorbidity Qualified Code(s): E66.813 - Obesity, class 3; Z68.44 - Body mass index [BMI] 60.0-69.9, adult Code(s): E66.813 - Obesity, class 3; Z68.44 - Body mass index [BMI] 60.0-69.9, adult Status: Acute Assessment and Plan: Aggressive diet lifestyle modification recommended. Plan Patient has been admitted as observation status. Subjective Date/time seen: 07/21/24 07:43 Interval history: Patient currently on AVAPS mode. Patient reports he was alone and do not use oxygen. Patient is a smoker and lately not moving around due to morbid obesity. Ultrasound of the lower extremity shows no DVT. Patient has impetigo covering the area of his vásquez. Patient was started on Bactroban ointment b.i.d. for 7 days.Will add Keflex .Pending Nasal MRSA and wound culture Review of Systems Review of Systems: 12 systems were reviewed with pertinent positives and negatives per HPI. Except as documented in the HPI, all other systems were reviewed and are negative. Exam Narrative: Weight 201.4 kg BMI 60.2 Objective Data Vital Signs Vital Signs: Vital Signs - 24 hr 07/20/24 17:51 07/20/24 18:08 07/20/24 18:11 Temperature 98.6 F Pulse Rate 102 H 122 H Respiratory Rate 28 H Blood Pressure 157/138 H Pulse Oximetry 96 96 Oxygen Delivery Nasal Cannula Nasal Cannula Oxygen Flow Rate 4 4 07/20/24 18:14 07/20/24 19:15 07/20/24 19:37 Temperature Pulse Rate 124 H 124 H Respiratory Rate 30 H 36 H Blood Pressure Pulse Oximetry 96 97 Oxygen Delivery Nasal Cannula BiPAP Oxygen Flow Rate 4 07/20/24 21:35 07/20/24 22:40 07/20/24 23:25 Temperature 98.3 F Pulse Rate 112 H 109 H Respiratory Rate 27 H 32 H Blood Pressure 152/93 H Pulse Oximetry 94 95 95 Oxygen Delivery BiPAP BiPAP Oxygen Flow Rate 07/21/24 00:00 07/21/24 00:00 07/21/24 00:11 Temperature Pulse Rate 116 H 116 H 110 H Respiratory Rate 27 H 27 H Blood Pressure Pulse Oximetry 95 95 Oxygen Delivery BiPAP BiPAP Oxygen Flow Rate 07/21/24 01:41 07/21/24 03:19 07/21/24 03:19 Temperature Pulse Rate 104 H 90 90 Respiratory Rate 24 H Blood Pressure Pulse Oximetry 90 Oxygen Delivery BiPAP Oxygen Flow Rate 07/21/24 04:14 07/21/24 04:44 07/21/24 05:56 Temperature 97.8 F Pulse Rate 100 86 Respiratory Rate 22 H 22 H Blood Pressure 145/70 H Pulse Oximetry 90 Oxygen Delivery BiPAP Oxygen Flow Rate Intake/Output Intake/Output: Intake & Output 07/18/24 07/19/24 07/20/24 07/21/24 23:59 23:59 23:59 23:59 Intake Total 350 Output Total 800 Balance -450 Meds/Results Medications: Active Medications Generic Name Dose Route Start Last Admin Trade Name Freq PRN Reason Stop Dose Admin Acetaminophen 650 mg 07/20/24 21:59 Acetaminophen 325 Mg Tablet PO Q4H PRN Mild Pain (1-3) or Fever Amlodipine Besylate 10 mg 07/21/24 09:00 Amlodipine Besylate 10 Mg Tablet PO DAILY EDMUNDO Apixaban 5 mg 07/21/24 09:00 Apixaban 5 Mg Tablet PO Q12HR EDMUNDO Bacitracin 1 applic 07/21/24 09:00 Bacitracin Ointment 15 Gm Tube TOPICAL Q12HR [facility] Dextrose 12.5 gm 07/21/24 01:58 Dextrose 50% 25 Gm/50 Ml Syringe IV PUSH PRN PRN Hypoglycemia Protocol Glucagon 1 mg 07/21/24 01:58 Glucagon For Inj 1 Mg Vial IM PRN PRN Hypoglycemia Protocol Glucose 15 gm 07/21/24 01:58 Glucose Oral Gel 15 Gm Of Glucse In 37.5 Gm Tube PO PRN PRN Hypoglycemia Protocol Dextrose 1,000 mls @ 100 mls/hr 07/21/24 01:58 Dextrose 5% 1,000 Ml IVPB PRN PRN Hypoglycemia Protocol Insulin Aspart 3 - 6 units 07/21/24 08:00 Insulin Aspart (*Bkc) 100 Units/Ml SUB-Q TIDWM EDMUNDO Protocol Insulin Aspart 1 - 3 units 07/21/24 21:00 Insulin Aspart (*Bkc) 100 Units/Ml SUB-Q HS [facility] Protocol Ipratropium Topaz 0.5 mg 07/21/24 08:00 Ipratropium Br 0.02% Inh Soln 0.5 Mg/2.5 Ml Vial INHALATION Q6HRT EDMUNDO Levalbuterol HCl 1.25 mg 07/21/24 08:00 Levalbuterol Neb 1.25 Mg/3 Ml INHALATION Q6HRT [facility] Lisinopril 20 mg 07/21/24 09:00 Lisinopril 20 Mg Tablet PO DAILY [facility] Metformin HCl 1,000 mg 07/21/24 08:00 Metformin Hcl 500 Mg Tablet PO BIDWM [facility] Methylprednisolone Sodium Succinate 60 mg 07/21/24 00:00 07/21/24 05:30 Methylprednisolone Sod Succ 125 Mg Vial IV PUSH 60 mg Q6HR [facility] Administration Multivitamins/Minerals 1 tablet 07/21/24 09:00 Opti-Gen Tab PO DAILY [facility] Ondansetron HCl 4 mg 07/20/24 21:59 Ondansetron Inj 4 Mg/2 Ml Vial IV PUSH Q4H PRN Nausea Perflutren Lipid Microsphere 0 ml 07/21/24 03:15 Perflutren Lipid Microspheres 1.5 Ml Vial Diluted To 10 Ml Total Volume IV PUSH 07/24/24 03:16 ONCE PRN adequate visualization Protocol Sertraline HCl 50 mg 07/21/24 09:00 Sertraline Hcl 50 Mg Tablet PO DAILY [facility] Radiology Results: ITS Impressions Chest X-Ray 07/20/24 18:24 IMPRESSION: No focal infiltrate or effusion. Labs Labs: Laboratory Results - last 24 hr 07/20/24 07/20/24 07/20/24 18:02 18:04 18:15 WBC 15.3 H RBC 5.27 Hgb 15.0 Hct 51.8 MCV 98.3 MCH 28.5 MCHC 29.0 L RDW 14.7 H Plt Count 226 MPV 9.5 Immature Gran % (Auto) 0.5 Neut % (Auto) 79.4 H Lymph % (Auto) 12.7 L Rogers % (Auto) 6.8 Eos % (Auto) 0.3 Baso % (Auto) 0.3 Lymph # (Auto) 1.95 Rogers # (Auto) 1.0 H Eos # (Auto) 0.1 Baso # (Auto) 0.0 Abs Immat Gran (auto) 0.07 H Absolute Neuts (auto) 12.2 H Absolute Nucleated RBC 0.020 H Nucleated RBC % 0.1 Puncture Site Right radial ABG pH 7.280 L* ABG pCO2 63.9 H* ABG pO2 64.3 L ABG PO2/FiO2 Ratio 1.79 ABG HCO3 29.4 H ABG O2 Saturation 89.3 L ABG O2 Content 18.6 ABG Base Excess 0.8 A-a Gradient 118.3 Oxyhemoglobin 86.0 L* Carboxyhemoglobin 3.2 H Methemoglobin 0.3 Reduced Hemoglobin 10.5 H Total Hemoglobin 15.4 O2 Delivery Device Nasal cannula O2 Liters/Min 4.0 Vent Rate FiO2 36 Expiratory Pressure Inspiratory Pressure Sodium 142 141 Potassium 4.4 4.4 Chloride 96 L 96 L Carbon Dioxide 38 H 38 H Anion Gap 8 7 BUN 20 20 Creatinine 0.82 0.82 Estim Creat Clear Calc 135 135 Estimated GFR > 60 > 60 Glucose 159 H 158 H Calcium 9.0 9.0 Total Bilirubin 0.9 0.8 AST 81 H 79 H ALT 49 48 Alkaline Phosphatase 98 93 Troponin I 0.013 NT-Pro-B Natriuret Pep 2930 H Total Protein 9.0 H 9.0 H Albumin 4.3 4.2 Influenza A (RT-PCR) Influenza B (RT-PCR) RSV (RT-PCR) SARS-CoV-2 RNA (RT-PCR) 07/20/24 07/21/24 07/21/24 21:49 03:51 04:36 WBC 13.2 H RBC 4.91 Hgb 14.3 Hct 48.0 MCV 97.8 MCH 29.1 MCHC 29.8 L RDW 14.5 Plt Count 217 MPV 9.6 Immature Gran % (Auto) Neut % (Auto) Lymph % (Auto) Rogers % (Auto) Eos % (Auto) Baso % (Auto) Lymph # (Auto) Rogers # (Auto) Eos # (Auto) Baso # (Auto) Abs Immat Gran (auto) Absolute Neuts (auto) Absolute Nucleated RBC Nucleated RBC % Puncture Site Left radial ABG pH 7.193 L* ABG pCO2 84.4 H* ABG pO2 83.7 ABG PO2/FiO2 Ratio 2.39 ABG HCO3 31.7 H ABG O2 Saturation 93.2 L ABG O2 Content 19.6 ABG Base Excess 0.7 A-a Gradient 67.7 Oxyhemoglobin 92.8 Carboxyhemoglobin Methemoglobin Reduced Hemoglobin Total Hemoglobin 15.0 O2 Delivery Device Non-invasive vent O2 Liters/Min Not Reportable Vent Rate 22 FiO2 35 Expiratory Pressure 8 Inspiratory Pressure 16 Sodium 139 Potassium 4.7 Chloride 98 Carbon Dioxide 33 H Anion Gap 8 BUN 21 H Creatinine 0.74 Estim Creat Clear Calc 153 Estimated GFR > 60 Glucose 220 H Calcium 8.6 Total Bilirubin AST ALT Alkaline Phosphatase Troponin I NT-Pro-B Natriuret Pep Total Protein Albumin Influenza A (RT-PCR) Negative Influenza B (RT-PCR) Negative RSV (RT-PCR) Negative SARS-CoV-2 RNA (RT-PCR) Negative 07/21/24 06:22 WBC RBC Hgb Hct MCV MCH MCHC RDW Plt Count MPV Immature Gran % (Auto) Neut % (Auto) Lymph % (Auto) Rogers % (Auto) Eos % (Auto) Baso % (Auto) Lymph # (Auto) Rogers # (Auto) Eos # (Auto) Baso # (Auto) Abs Immat Gran (auto) Absolute Neuts (auto) Absolute Nucleated RBC Nucleated RBC % Puncture Site Left radial ABG pH 7.235 L* ABG pCO2 76.8 H* ABG pO2 75.6 L ABG PO2/FiO2 Ratio 2.16 ABG HCO3 31.8 H ABG O2 Saturation 92.0 L ABG O2 Content 19.1 ABG Base Excess 1.8 A-a Gradient 84.7 Oxyhemoglobin 91.1 Carboxyhemoglobin Methemoglobin Reduced Hemoglobin Total Hemoglobin 14.9 O2 Delivery Device Non-invasive vent O2 Liters/Min Not Reportable Vent Rate 26 FiO2 35 Expiratory Pressure 20 Inspiratory Pressure 25 Sodium Potassium Chloride Carbon Dioxide Anion Gap BUN Creatinine Estim Creat Clear Calc Estimated GFR Glucose Calcium Total Bilirubin AST ALT Alkaline Phosphatase Troponin I NT-Pro-B Natriuret Pep Total Protein Albumin Influenza A (RT-PCR) Influenza B (RT-PCR) RSV (RT-PCR) SARS-CoV-2 RNA (RT-PCR) Quality VTE Prophylaxis VTE prophylaxis: pharmacologic ordered (Start Eliquis.) Hospitalist MIPS Advance Care Plan I have confirmed that the patient's Advanced Care Plan is present, code status is documented, or surrogate decision maker is listed in patient medical record.: Yes Medication Reconciliation I have utilized all available resources to obtain, update and review the patients current medications (includes all prescriptions, OTC, herbals, cannabis, and nutritional supplements).: Yes
[2024-07-21] MEDS: APIXABAN 5 MG TABLET PO ×2 (08:38→20:53)
[2024-07-21] MEDS: metFORMIN HCL 500 MG TABLET 1000 MG PO ×2 (08:38→17:29)
[2024-07-21] MEDS: SERTRALINE HCL 50 MG TABLET PO (08:38)
[2024-07-21] MEDS: OPTI-GEN TAB 1 TABLET PO (08:39)
[2024-07-21] MEDS: amLODIPine BESYLATE 10 MG TABLET PO (08:39)
[2024-07-21] MEDS: lisinopriL 20 MG TABLET PO (08:39)
[2024-07-21] MEDS: BACITRACIN OINTMENT 15 GM TUBE 1 APPLIC TOPICAL ×2 (08:39→20:53)
[2024-07-21] MEDS: LEVALBUTEROL NEB 1.25 MG/3 ML INHALATION ×4 (08:56→20:16)
[2024-07-21] MEDS: IPRATROPIUM BR 0.02% INH SOLN 0.5 MG/2.5 ML VIAL INHALATION ×4 (08:56→20:16)
[2024-07-21 08:59] LABS: Glucose Point of Care 206 mg/dl (65-105)
--- NOTE | 2024-07-21 09:44 | PM.CNPUL ---
Assessment and Plan Assessment and plan (1) COPD (chronic obstructive pulmonary disease): Qualifiers: COPD type: COPD with acute exacerbation Qualified Code(s): J44.1 - Chronic obstructive pulmonary disease with (acute) exacerbation Code(s): J44.9 - Chronic obstructive pulmonary disease, unspecified Status: Acute Assessment and Plan: Regarding his COPD the patient smoked tobacco from age 14 to current at 1 pack per day for total of 50 pack years. The patient tells me he had PFTs many years ago and was told that he has COPD. At baseline When he was doing well about 3 weeks ago he can walk half a block. he uses no oxygen at rest or with activity. He is maintained on albuterol. Eosinophil count 46 per micro L. currently the patient has increased shortness of breath, wheezing with no change in sputum volume or production. COVID, RSV, influenza RT PCR studies negative. I will treat him for COPD exacerbation. Plan: I will decrease his Solu-Medrol to 20 mg IV q.6. I will increase his levalbuterol and ipratropium nebulizers to q.4 hours. I will add guaifenesin 1200 mg p.o. b.i.d. because the patient states he is difficult time expectorating his phlegm. At this time the patient has no evidence of a bacterial infection and I agree with no antibiotics. patient is currently on noninvasive ventilation I told him he can wear this p.r.n. but he should wear tonight. If he comes off the noninvasive ventilation goal saturation 90-94% with supplemental oxygen. I will send the respiratory pathogen panel. Discussed with Dr. Renee, will follow with you. (2) Chronic respiratory failure with hypercapnia: Code(s): J96.12 - Chronic respiratory failure with hypercapnia Status: Acute Assessment and Plan: The patient has COPD with chronic hypercarbic respiratory failure. Initial blood gas on 4 L nasal cannula was 7.28/64/64. Initial serum bicarbonate was 38. Patient has chronic hypercarbic respiratory failure from his COPD. Patient would benefit from noninvasive ventilation to prevent further deterioration and subsequent hospitalizations. Patient was placed on BiPAP and he could not tolerate the pressures or flows and he had a continued respiratory acidosis on BiPAP rate of 22 and pressures 25/20. I recommend noninvasive ventilation with the AVAPS mode. 07/21/24: I started AVAPS mode and adjusted the settings for comfort resulting in rate of 16, tidal volume 500, EPAP 10, minimal inspiratory pressure 11, maximal inspiratory pressure 25, inspiratory time 0.8, rise of 1 and 32% FiO2. Patient had a peak inspiratory pressure of 12 and a saturation of 93%. Plan: Continue noninvasive ventilation with the AVAPS mode p.r.n. during the day. He should wear the settings at night and we will obtain a overnight oximetry and an ABG prior to removal. I have started the process for a home noninvasive ventilator with the respiratory director and if this can be delivered to the hospital today will use this machine tonight with an overnight oximetry and ABG prior to removal. (3) Atrial fibrillation with RVR: Code(s): I48.91 - Unspecified atrial fibrillation Status: Acute Assessment and Plan: Patient with new onset AFib with RVR. BNP 2930. Given 40 IV Lasix in the emergency department. Admission weight 201.4 kg. Plan: Management per hospitalist team. Echocardiogram to assess LV function, RV function, pulmonary pressures and valve function. Patient currently on Eliquis 5 p.o. q.12 hours. Recommend as aggressive diuresis as tolerated by his cardiac and renal systems. History of Present Illness History of Present Illness Consult date: 07/21/24 Chief complaint: Hypercapnia, COPD, Hypoxia Narrative: 07/21/2024: This is a new pulmonary consult for COPD with hypercarbic respiratory failure 64-year-old with a history of hypertension, hyperlipidemia, diabetes, obesity, and COPD. Regarding his COPD the patient smoked tobacco from age 14 to current at 1 pack per day for total of 50 pack years. The patient tells me he had PFTs many years ago and was told that he has COPD. At baseline When he was doing well about 3 weeks ago he can walk half a block. he uses no oxygen at rest or with activity. He is maintained on albuterol. Patient presented to the emergency department on 07/20/2024 with 2 weeks of shortness of breath. EMS was called and his saturations on 2 L of were 82%. He was given bronchodilator and IV steroids in route to the emergency room. In the emergency room his heart rate was 102 and he was in AFib with RVR. Blood pressure 157/138. On 4 L nasal cannula saturations were 96. He had diffuse wheezing. His white blood cell count was 15.3, his creatinine was 0.2, his BNP was 2930. His eosinophil count was 46 per micro L. His chest x-ray was negative. His COVID influenza and RSV RT PCR was negative. ABG on 4 L nasal cannula 7./63. Patient was placed on BiPAP, given an hour long nebulized treatment, given IV diltiazem, IV Lasix and Eliquis. Patient denied fever, chills, rigors, cough, change in phlegm volume or color. 07/21/2024: Patient BiPAP was adjusted through the night and currently he was on a rate of 26, pressures 25/20 and 35% FiO2 when I enter the room. He said this was uncomfortable, he had a high leak and could not sleep with the settings. I changed him to noninvasive ventilation with the AVAPS mode and adjusted the settings for comfort resulting in rate of 16, tidal volume 500, EPAP 10, minimal inspiratory pressure 11, maximal inspiratory pressure 25, inspiratory time 0.8, rise of 1 and 32% FiO2. Patient had a peak inspiratory pressure of 12 and a saturation of 93%. 07/20/2024: CHEST RADIOGRAPH CLINICAL HISTORY: SOA . COMPARISON: None available TECHNIQUE: Single portable view of the chest. FINDINGS The cardiomediastinal silhouette is enlarged. The lungs are clear. IMPRESSION: No focal infiltrate or effusion. Review of Systems Constitutional: Constitutional: Reports no additional constitutional complaints Eyes: Eyes: Reports no additional eye complaints ENT: Reports system reviewed and no additional complaints, except as documented Cardiovascular: Cardiovascular: Reports no additional cardiovascular complaints Respiratory: Respiratory: Reports no additional respiratory complaints Gastrointestinal: Gastrointestinal: Reports no additional gastrointestinal complaints Musculoskeletal: Musculoskeletal: Reports no additional musculoskeletal complaints Neurologic: Reports system reviewed and no additional complaints, except as documented Psychiatric: Psychiatric: Reports no additional psychiatric complaints Endocrine: Endocrine: Reports no additional endocrine complaints Hematologic/Lymphatic: Hematologic/Lymphatic: Reports no additional hematologic/lymphatic complaints Allergic/Immunologic: Allergic/Immunologic: Reports no additional allergic/immunologic complaints [facility] Past Medical History Medical History (Updated 07/21/24 @ 09:51 by Mello Murray MD) Class 3 severe obesity with body mass index (BMI) of 60.0 to 69.9 in adult Chronic respiratory failure with hypoxia and hypercapnia On home O2 Eczema KATIE (obstructive sleep apnea) With prior sleep study in 2010 recommend a BiPAP of Type 2 diabetes mellitus COPD (chronic obstructive pulmonary disease) HLD (hyperlipidemia) Essential hypertension Surgical History Surgical History (Updated 07/21/24 @ 03:28 by Ny Jones DO) History of back surgery Status post surgery of both feet Family History Family History (Updated 05/13/19 @ 07:56 by Gloria Noel, [facility]) Mother Hypertension Social History Social History Smoking packs per day: 0.5 Smoking cigarettes per day: 10.0 Years smoked: 40 Smoking pack-years: 20.00 Smoking status: Current every day smoker Tobacco type: cigarettes Smoking end date: 03/16/14 Alcohol intake: never Substance use: never Substance use type: does not use Do You Feel Safe in your Home?: Yes Lack of Transportation: No Lack of Food: Never True Current Housing: I Have Housing Concerned About Future Housing: No Difficulty Paying Gas/Electric Bills: No Difficulty Paying for Meds: No Currently Unemployed: No Education: High School Diploma/GED Difficulty w/ Childcare or Family Care: No Spiritual care concerns: No Meds Home Medications and Allergies Home Medications ?Medication ?Instructions ?Recorded ?Confirmed ?Type fvrmdlvc-bm-toemb 300 mcg-K 60 1 tablet PO DAILY 05/13/19 07/20/24 History mcg-lycop 600 mcg-lutein 300 mcg tablet (Centrum Silver Men) sertraline 50 mg tablet 50 mg PO DAILY #90 tabs 11/14/19 07/20/24 Rx amlodipine 10 mg tablet 10 mg PO DAILY #90 tabs 03/02/20 07/20/24 Rx albuterol sulfate 90 mcg/actuation 2 puff inhalation Q4-6H PRN 04/03/21 07/20/24 Rx aerosol inhaler (ProAir HFA) shortness of breath or wheezing #6.7 grams lisinopril 40 mg tablet See Rx Instructions .Route 01/01/22 07/20/24 Rx .COMPLEX #30 tabs metformin 1,000 mg tablet 1,000 mg PO BID 07/20/24 07/20/24 History Allergies Allergy/AdvReac Type Severity Reaction Status Date / Time metformin Allergy Unknown itching, Verified 03/02/20 08:40 SOB Vital Signs Vital Signs - 24 hr 05/07/25 17:51 07/20/24 18:08 07/20/24 18:11 Temperature 37.0 C Pulse Rate 102 H 122 H Respiratory Rate 28 H Blood Pressure 157/138 H Pulse Oximetry 96 96 Oxygen Delivery Nasal Cannula Nasal Cannula Oxygen Flow Rate 4 4 Fraction of Inspired Oxygen 07/20/24 18:14 07/20/24 19:15 07/20/24 19:37 Temperature Pulse Rate 124 H 124 H Respiratory Rate 30 H 36 H Blood Pressure Pulse Oximetry 96 97 Oxygen Delivery Nasal Cannula BiPAP Oxygen Flow Rate 4 Fraction of Inspired Oxygen 07/20/24 21:35 07/20/24 22:40 07/20/24 23:25 Temperature 36.8 C Pulse Rate 112 H 109 H Respiratory Rate 27 H 32 H Blood Pressure 152/93 H Pulse Oximetry 94 95 95 Oxygen Delivery BiPAP BiPAP Oxygen Flow Rate Fraction of Inspired Oxygen 07/21/24 00:00 07/21/24 00:00 07/21/24 00:11 Temperature Pulse Rate 116 H 116 H 110 H Respiratory Rate 27 H 27 H Blood Pressure Pulse Oximetry 95 95 Oxygen Delivery BiPAP BiPAP Oxygen Flow Rate Fraction of Inspired Oxygen 07/21/24 01:41 07/21/24 03:19 07/21/24 03:19 Temperature Pulse Rate 104 H 90 90 Respiratory Rate 24 H Blood Pressure Pulse Oximetry 90 Oxygen Delivery BiPAP Oxygen Flow Rate Fraction of Inspired Oxygen 07/21/24 04:14 07/21/24 04:44 07/21/24 05:56 Temperature 36.6 C Pulse Rate 100 86 Respiratory Rate 22 H 22 H Blood Pressure 145/70 H Pulse Oximetry 90 Oxygen Delivery BiPAP Oxygen Flow Rate Fraction of Inspired Oxygen 07/21/24 08:00 07/21/24 08:40 07/21/24 09:01 Temperature 36.4 C Pulse Rate 85 110 H Respiratory Rate 26 H 31 H Blood Pressure 129/86 Pulse Oximetry 94 93 94 Oxygen Delivery BiPAP BiPAP Oxygen Flow Rate Fraction of Inspired Oxygen 35 07/21/24 09:01 Temperature Pulse Rate 110 H Respiratory Rate 31 H Blood Pressure Pulse Oximetry Oxygen Delivery Oxygen Flow Rate Fraction of Inspired Oxygen Exam Const: General: cooperative, healthy appearing and comfortable Orientation/consciousness: oriented to person, oriented to place and oriented to time HENMT: Head: normal to inspection Ears: hearing grossly normal bilaterally Eyes: General: appearance normal, both eyes and all related structures Neck: Neck: normal visual inspection Chest: Chest palpation & inspection: normal inspection of the chest Resp: Effort & Inspection: normal respiratory effort and able to speak in complete sentences Auscultation: no crackles, no rales, no rhonchi, wheezes and lung sounds not diminished Cardio: Jugular venous distension: no JVD GI: Inspection: normal to inspection GI Palp: No abdominal tenderness Other: abdomen feels tight. Skin: General skin exam: normal color Neuro: General: oriented to person, oriented to place and oriented to time Extrem: General: normal to inspection and no edema Psych: Appearance: grossly normal Results Laboratory Findings 07/21/24 03:51 07/21/24 03:51 ABG, PT/INR, D-dimer: ABG ABG pH 7.235 (7.350-7.450) L* 07/21/24 06:22 ABG pCO2 76.8 mmHg (35.0-45.0) H* 07/21/24 06:22 ABG pO2 75.6 mmHg (80.0-100.0) L 07/21/24 06:22 ABG O2 Saturation 92.0 % (95.0-100.0) L 07/21/24 06:22 Abnormal lab findings: Abnormal Labs 07/20/24 07/20/24 07/20/24 18:02 18:04 18:15 WBC 15.3 H MCHC 29.0 L RDW 14.7 H Neut % (Auto) 79.4 H Lymph % (Auto) 12.7 L [place] # (Auto) 1.0 H Abs Immat Gran (auto) 0.07 H Absolute Neuts (auto) 12.2 H Absolute Nucleated RBC 0.020 H ABG pH 7.280 L* ABG pCO2 63.9 H* ABG pO2 64.3 L ABG HCO3 29.4 H ABG O2 Saturation 89.3 L Oxyhemoglobin 86.0 L* Carboxyhemoglobin 3.2 H Reduced Hemoglobin 10.5 H Chloride 96 L 96 L Carbon Dioxide 38 H 38 H BUN Glucose 159 H 158 H POC Capillary Glucose AST 81 H 79 H NT-Pro-B Natriuret Pep 2930 H Total Protein 9.0 H 9.0 H 07/21/24 07/21/24 07/21/24 03:51 04:36 06:22 WBC 13.2 H MCHC 29.8 L RDW Neut % (Auto) Lymph % (Auto) [place] # (Auto) Abs Immat Gran (auto) Absolute Neuts (auto) Absolute Nucleated RBC ABG pH 7.193 L* 7.235 L* ABG pCO2 84.4 H* 76.8 H* ABG pO2 75.6 L ABG HCO3 31.7 H 31.8 H ABG O2 Saturation 93.2 L 92.0 L Oxyhemoglobin Carboxyhemoglobin Reduced Hemoglobin Chloride Carbon Dioxide 33 H BUN 21 H Glucose 220 H POC Capillary Glucose AST NT-Pro-B Natriuret Pep Total Protein 07/21/24 08:33 WBC MCHC RDW Neut % (Auto) Lymph % (Auto) [place] # (Auto) Abs Immat Gran (auto) Absolute Neuts (auto) Absolute Nucleated RBC ABG pH ABG pCO2 ABG pO2 ABG HCO3 ABG O2 Saturation Oxyhemoglobin Carboxyhemoglobin Reduced Hemoglobin Chloride Carbon Dioxide BUN Glucose POC Capillary Glucose 206 H AST NT-Pro-B Natriuret Pep Total Protein Diagnostic Findings Additional studies: ITS Impressions Chest X-Ray 07/20/24 18:24
[2024-07-21] MEDS: guaiFENesin 12 HR 600 MG TABCR 1200 MG PO ×2 (10:46→20:53)
[2024-07-21] MEDS: methylPREDNISolone SOD SUCC 125 MG VIAL 20 MG IV PUSH ×2 (12:03→17:34)
[2024-07-21 12:11] LABS: Glucose Point of Care 197 mg/dl (65-105)
[2024-07-21 16:50] LABS: Hemoglobin A1C 7.2 % (<5.7)
[2024-07-21 16:52] LABS: Glucose Point of Care 214 mg/dl (65-105)
[2024-07-21] MEDS: INSULIN ASPART (*BKC) 100 UNITS/ML SUB-Q ×2 (17:32→20:54)
[2024-07-21] MEDS: CEPHALEXIN 500 MG CAPSULE PO (20:53)
[2024-07-21 21:22] LABS: MRSA (PCR) DETECTED (NOT DETECTE)
[2024-07-21 21:30] LABS: Glucose Point of Care 202 mg/dl (65-105)
[2024-07-22] VITALS (32 sets, daily range): BP systolic 101–134; BP diastolic 60–87; PULSE 67–120; RESP 16–22; TEMP 36.2–37.2; O2SAT 87–100
[2024-07-22] MEDS: methylPREDNISolone SOD SUCC 125 MG VIAL 20 MG IV PUSH ×5 (00:33→23:45)
[2024-07-22] MEDS: IPRATROPIUM BR 0.02% INH SOLN 0.5 MG/2.5 ML VIAL INHALATION ×5 (05:20→20:45)
[2024-07-22] MEDS: LEVALBUTEROL NEB 1.25 MG/3 ML INHALATION ×5 (05:21→20:45)
[2024-07-22 05:26] LABS: Alveolar/Arterial O2 Gradient 68.5 mmHg; Fractional Inspired Oxygen 32 %; HCO3 ABG 32.7 mEq/l (22.0-26.0); Oxygen Content ABG 19.2 %vol (16.0-22.0); Oxygen Saturation ABG 94.3 % (95.0-100.0); Oxyhemoglobin 93.9 % THb (90.0-100.0); PO2 ABG 80.3 mmHg (80.0-100.0); PO2 FiO2 Ratio Arterial Blood 2.51 %; Total Hemoglobin 14.5 g/dL (12.0-18.0); pH ABG 7.301 (7.350-7.450)
[2024-07-22 05:29] LABS: Modified Allen's Test Pass; PCO2 ABG 67.8 mmHg (35.0-45.0); Site Drawn LEFT RADIAL
[2024-07-22 05:30] LABS: Device BIPAP
[2024-07-22 05:31] LABS: Expiratory Pressure 10 cmH2O
[2024-07-22 05:49] LABS: Hematocrit 46.2 % (42.0-52.0); Hemoglobin 13.9 g/dL (14.0-18.0); Mean Corpuscular HGB Conc 30.1 g/dl (32-36); Mean Corpuscular Hemoglobin 29.4 pg (26-34); Mean Corpuscular Volume 97.9 fl (80-100); Mean Platelet Volume 9.2 fl (7.4-10.4); Platelet Count Result 213 k/mm3 (150-375); Red Blood Count 4.72 M/mm3 (4.6-6.20); Red Cell Distribution Width 14.5 % (11.5-14.5); White Blood Count 16.1 K/mm3 (4.5-10.0)
[2024-07-22 06:07] LABS: Alanine Aminotransferase 44 U/L (6-50); Albumin Level 3.7 g/dL (3.5-5.1); Alkaline Phosphatase 81 U/L (38-126); Anion Gap 6 mmol/L (4-12); Aspartate Amino Transferase 47 U/L (17-59); Bilirubin,Total 0.4 mg/dL (0.2-1.3); Blood Urea Nitrogen 35 mg/dL (9-20); Calcium 8.6 mg/dL (8.4-10.2); Carbon Dioxide 35 mmol/L (22-30); Chloride 99 mmol/L (98-107); Estimated CRCL calculation 127 ml/min; Estimated Glomerular Filt Rate > 60; Glucose 179 mg/dL (65-110); Potassium 4.9 mmol/L (3.4-5.0); Sodium 140 mmol/L (137-145)
[2024-07-22 07:34] LABS: NT Pro B Type Natriuretic Pept 1810 pg/mL (19.9-100)
[2024-07-22 07:55] LABS: Glucose Point of Care 196 mg/dl (65-105)
[2024-07-22] MEDS: SERTRALINE HCL 50 MG TABLET PO (09:02)
[2024-07-22] MEDS: OPTI-GEN TAB 1 TABLET PO (09:02)
[2024-07-22] MEDS: guaiFENesin 12 HR 600 MG TABCR 1200 MG PO ×2 (09:03→20:55)
[2024-07-22] MEDS: CEPHALEXIN 500 MG CAPSULE PO (09:03)
[2024-07-22] MEDS: MUPIROCIN 2% OINT 22 GM TUBE 1 APPLIC EACH NARE ×2 (09:03→20:55)
[2024-07-22] MEDS: lisinopriL 20 MG TABLET PO (09:03)
[2024-07-22] MEDS: metFORMIN HCL 500 MG TABLET 1000 MG PO ×2 (09:03→17:11)
[2024-07-22] MEDS: BACITRACIN OINTMENT 15 GM TUBE 1 APPLIC TOPICAL ×2 (09:03→20:55)
[2024-07-22] MEDS: amLODIPine BESYLATE 10 MG TABLET PO (09:03)
[2024-07-22] MEDS: APIXABAN 5 MG TABLET PO ×2 (09:03→20:55)
[2024-07-22] MEDS: FUROSEMIDE INJ 40 MG/4 ML VIAL IV PUSH ×2 (09:03→17:11)
--- NOTE | 2024-07-22 09:07 | PM.PNPUL ---
Progress Note: A&P Assessment and Plan (1) COPD (chronic obstructive pulmonary disease): Qualifiers: COPD type: COPD with acute exacerbation Qualified Code(s): J44.1 - Chronic obstructive pulmonary disease with (acute) exacerbation Code(s): J44.9 - Chronic obstructive pulmonary disease, unspecified Status: Acute Assessment and Plan: Regarding his COPD the patient smoked tobacco from age 14 to current at 1 pack per day for total of 50 pack years. last cigarette the day of admission on 07/20/2024. The patient tells me he had PFTs many years ago and was told that he has COPD. At baseline When he was doing well about 3 weeks ago he can walk half a block. he uses no oxygen at rest or with activity. He is maintained on albuterol. Eosinophil count 46 per micro L. Tells me he uses 2 L nasal cannula at rest, he has not been doing activity and using 2 L bleed in to his BiPAP at night. 07/21/24: Currently the patient has increased shortness of breath, wheezing with no change in sputum volume or production. COVID, RSV, influenza RT PCR studies negative. I will treat him for COPD exacerbation. Plan: I will decrease his Solu-Medrol to 20 mg IV q.6. I will increase his levalbuterol and ipratropium nebulizers to q.4 hours. I will add guaifenesin 1200 mg p.o. b.i.d. because the patient states he is difficult time expectorating his phlegm. At this time the patient has no evidence of a bacterial infection and I agree with no antibiotics. patient is currently on noninvasive ventilation I told him he can wear this p.r.n. but he should wear tonight. If he comes off the noninvasive ventilation goal saturation 90-94% with supplemental oxygen. I will send the respiratory pathogen panel. Later in the day patient had an echocardiogram with LVEF 60 65%, AFib, normal RV function unable to assess RV size. Mildly increased left atrium, moderately increased right atrium, no tricuspid regurg and no PASP calculated. 07/22/24: The patient tells me he is doing much better today. He tells me he is breathing better than he has in the last 6 months. He denies cough. He has baseline phlegm production with no hemoptysis. He is afebrile. White blood cell count 16.1, creatinine 0.9. Currently he is on 5 L nasal cannula saturations 91%. yesterday he was positive 30 mL an cumulative she is positive 230 mL from admission. His weight today is 201.5 kg. BNP has improved from 2930 on 07/20/2024 to 1810 today. Plan: I will change his Solu-Medrol to prednisone 40 mg q.day, day 3 of steroids. Continue ipratropium and levalbuterol nebulizers q.4 hours continue guaifenesin 1200 q.day. goal saturation 90-94%. Patient on Lasix 40 IV b.i.d., weight is stable, BNP has improved. Pulmonary inpatient services will resume on 07/25/2024. Call with questions. Should the patient be discharged in the next 2 days he should be discharged on these pulmonary medicines: prednisone 40 mg p.o. q.day, last dose 07/24/2024 Beta agonist and muscarinic antagonist that insurance will cover (Anoro Ellipta 62.5/25 at 1 puff Q day, stiolto respimat 2.5/2.5 at 1 puff BID, bevespi aerosphere 9 mcg/4.8 at 2 puffs BID, combivent respimat at 2 puffs Q 4 HR or separate albuterol and atrovent inhalers at 2 puffs Q 4 HR) Rescue levalbuterol 2 puffs q.4 hours p.r.n. shortness of breath or wheezing Rescue levalbuterol nebulizer 1.25 mcg q.4 hours p.r.n. shortness of breath or wheezing Oxygen at rest and with activity per formal home O2 assessment on the day of discharge When he naps or sleeps: through DME IV respiratory care: noninvasive ventilation with the IVAPS-AE mode: rate of 20, tidal volume 550, minimum EPAP 5, maximum EPAP 20, minimum pressure support 6, maximum pressure support 25 and 3 L bleed in which will be guided by overnight oximetry on 07/22/24. follow-up in the Pulmonary Clinic 4 weeks. I gave him our business card and informed our men's custom hair piece consultant. Discussed with Dr. Renee. (2) Chronic respiratory failure with hypercapnia: Code(s): J96.12 - Chronic respiratory failure with hypercapnia Status: Acute Assessment and Plan: The patient has COPD with chronic hypercarbic respiratory failure. Initial blood gas on 4 L nasal cannula was 7.28/64/64. Initial serum bicarbonate was 38. Patient has chronic hypercarbic respiratory failure from his COPD. Patient would benefit from noninvasive ventilation to prevent further deterioration and subsequent hospitalizations. Patient was placed on BiPAP and he could not tolerate the pressures or flows and he had a continued respiratory acidosis on BiPAP rate of 22 and pressures 25/20. I recommend noninvasive ventilation with the AVAPS mode. 07/21/24: I started AVAPS mode and adjusted the settings for comfort resulting in rate of 16, tidal volume 500, EPAP 10, minimal inspiratory pressure 11, maximal inspiratory pressure 25, inspiratory time 0.8, rise of 1 and 32% FiO2. Patient had a peak inspiratory pressure of 12 and a saturation of 93%. Plan: Continue noninvasive ventilation with the AVAPS mode p.r.n. during the day. He should wear the settings at night and we will obtain a overnight oximetry and an ABG prior to removal. I have started the process for a home noninvasive ventilator with the coordinator of health services and if this can be delivered to the hospital today will use this machine tonight with an overnight oximetry and ABG prior to removal. 07/22/24: The patient wore the the noninvasive ventilator with the AVAPS mode with the settings as above but said he could not sleep and the nurses reminded him multiple times to stop pulling at the mask. He felt that this provided him lower pressure than his home machine. Patient had an overnight oximetry on these settings with recording duration of 7 hours and 26 minutes, average saturation 93%. Low saturation 82%, time with saturation less than or equal to 88% was 1 minute, oxygen desaturation index 2.9. ABG prior to removal was 7.30/68/80. Plan: The current noninvasive ventilation with the AVAPS mode provide an adequate ventilation and adequate oxygenation. I have completed an order form through IV respiratory care for noninvasive ventilation with the IVAPS-AE mode: rate of 20, tidal volume 550, minimum EPAP 5, maximum EPAP 20, minimum pressure support 6, maximum pressure support 25 and 3 L bleed in. Will attempt to have this set up in the hospital tonight with an overnight oximetry and an ABG in the morning prior to removal to assess oxygenation and ventilation. The [employer] is where the patient has facial impetigo and they will bring multiple masks to see if there is 1 that he can tolerate. These current settings are the maximal rate and tidal volume that will be tolerated and he will need to be discharged on these settings. (3) Atrial fibrillation with RVR: Code(s): I48.91 - Unspecified atrial fibrillation Status: Acute Assessment and Plan: 07/21/24: Patient with new onset AFib with RVR. BNP 2930. Given 40 IV Lasix in the emergency department. Admission weight 201.4 kg. Plan: Management per hospitalist team. Echocardiogram to assess LV function, RV function, pulmonary pressures and valve function. Patient currently on Eliquis 5 p.o. q.12 hours. Recommend as aggressive diuresis as tolerated by his cardiac and renal systems. 07/22/24: yesterday he was positive 30 mL an cumulative she is positive 230 mL from admission. His weight today is 201.5 kg. BNP has improved from 2930 on 07/20/2024 to 1810 today. Plan: currently patient on 40 IV Lasix b.i.d., Eliquis 5 q.12, amlodipine 10, lisinopril 20. management per hospitalist team. (4) Impetigo: Code(s): L01.00 - Impetigo, unspecified Status: Acute Assessment and Plan: 07/22/24: Regarding his facial rash he had no rash on 07/17/2024. On 07/18/2024 he shave with an old razor and on 07/19/2024 his facial rash erupted. He tells me he also had a rash similar to this a few years ago when he used an old razor and improved with antibiotics in 2-3 days. He tells me his facial rash is improved but still bothersome. MRSA nasal swab positive. Plan: Management per hospitalist team. Currently the patient is on bacitracin and Keflex 500 q.12, day 1. Subjective Date/time seen: 07/22/24 09:07 Interval history: 07/21/2024: This is a new pulmonary consult for COPD with hypercarbic respiratory failure 64-year-old with a history of hypertension, hyperlipidemia, diabetes, obesity, and COPD. Regarding his COPD the patient smoked tobacco from age 14 to current at 1 pack per day for total of 50 pack years. Last cigarette on the day of admission. The patient tells me he had PFTs many years ago and was told that he has COPD. At baseline When he was doing well about 3 weeks ago he can walk half a block. he uses 2 oxygen at rest and with activity at home. Patient tells me he uses 2 oxygen bleed in and BiPAP at home. He is maintained on albuterol. Patient tells me even on good days the doctors tell him that he has expiratory wheezes and he states he wheezes daily. Patient presented to the emergency department on 07/20/2024 with 2 weeks of shortness of breath and facial rash. EMS was called and his saturations on 2 L of were 82%. He was given bronchodilator and IV steroids in route to the emergency room. In the emergency room his heart rate was 102 and he was in AFib with RVR. Blood pressure 157/138. On 4 L nasal cannula saturations were 96. He had diffuse wheezing. His white blood cell count was 15.3, his creatinine was 0.2, his BNP was 2930. His eosinophil count was 46 per micro L. His chest x-ray was negative. His COVID influenza and RSV RT PCR was negative. ABG on 4 L nasal cannula 7.28/64/63. Patient was placed on BiPAP, given an hour long nebulized treatment, given IV diltiazem, IV Lasix and Eliquis. Patient denied fever, chills, rigors, cough, change in phlegm volume or color. Regarding his facial rash he had no rash on 07/17/2024. On 07/18/2024 he shave with an old razor and on 07/19/2024 his facial rash erupted. He tells me he also had a rash similar to this a few years ago when he used an old razor and improved with antibiotics in 2-3 days. He tells me his facial rash is improved but still bothersome. 07/21/2024: Patient BiPAP was adjusted through the night and currently he was on a rate of 26, pressures 25/20 and 35% FiO2 when I enter the room. He said this was uncomfortable, he had a high leak and could not sleep with the settings. I changed him to noninvasive ventilation with the AVAPS mode and adjusted the settings for comfort resulting in rate of 16, tidal volume 500, EPAP 10, minimal inspiratory pressure 11, maximal inspiratory pressure 25, inspiratory time 0.8, rise of 1 and 32% FiO2. Patient had a peak inspiratory pressure of 12 and a saturation of 93%. 07/22/24: The patient tells me he is doing much better today. He tells me he is breathing better than he has in the last 6 months. He denies cough. He has baseline phlegm production with no hemoptysis. He is afebrile. White blood cell count 16.1, creatinine 0.9. Currently he is on 5 L nasal cannula saturations 91%. yesterday he was positive 30 mL an cumulative she is positive 230 mL from admission. His weight today is 201.5 kg.. The patient wore the the noninvasive ventilator with the AVAPS mode with the settings as above but said he could not sleep and the nurses reminded him multiple times to stop pulling at the mask. He felt that this provided him lower pressure than his home machine. Patient had an overnight oximetry on these settings with recording duration of 7 hours and 26 minutes, average saturation 93%. Low saturation 82%, time with saturation less than or equal to 88% was 1 minute, oxygen desaturation index 2.9. ABG prior to removal was 7.30//80. DATA: 07/21/24: Echo Summary 1. Technically suboptimal study due to poor sonographic images. 2. Definity contrast administered improved wall motion interpretation. 3. Left ventricular chamber dimension is moderately enlarged. 4. Left ventricular systolic function is normal, estimated at 60-65%. 5. There is mild concentric increased left ventricular wall thickness. 6. The left ventricular diastolic function is indeterminate as tissue doppler was not performed.. 7. Atrial fibrillation. 8. Left atrial chamber dimension is mildly enlarged. 9. Right atrial chamber dimension is moderately enlarged. 10. There is mild aortic valve sclerosis. Right Ventricle Right ventricular systolic function is normal based on a normal TAPSE 1.9 cm. Right ventricular chamber dimension is not well visualized. Right Atria Right atrial chamber dimension is moderately enlarged. 07/20/2024: CHEST RADIOGRAPH CLINICAL HISTORY: SOA . COMPARISON: None available TECHNIQUE: Single portable view of the chest. FINDINGS The cardiomediastinal silhouette is enlarged. The lungs are clear. IMPRESSION: No focal infiltrate or effusion. Review of Systems Constitutional: Constitutional: Reports no additional constitutional complaints Eyes: Eyes: Reports no additional eye complaints ENT: Reports system reviewed and no additional complaints, except as documented Cardiovascular: Cardiovascular: Reports no additional cardiovascular complaints Respiratory: Respiratory: Reports no additional respiratory complaints Gastrointestinal: Gastrointestinal: Reports no additional gastrointestinal complaints Musculoskeletal: Musculoskeletal: Reports no additional musculoskeletal complaints Neurologic: Reports system reviewed and no additional complaints, except as documented Psychiatric: Psychiatric: Reports no additional psychiatric complaints Endocrine: Endocrine: Reports no additional endocrine complaints Hematologic/Lymphatic: Hematologic/Lymphatic: Reports no additional hematologic/lymphatic complaints Allergic/Immunologic: Allergic/Immunologic: Reports no additional allergic/immunologic complaints Exam Const: General: cooperative, healthy appearing and comfortable Orientation/consciousness: oriented to person, oriented to place and oriented to time HENMT: Head: normal to inspection Ears: hearing grossly normal bilaterally Other: Impetigo facial rash below his mouth on his chin and upper neck. Improved today. Eyes: General: appearance normal, both eyes and all related structures Neck: Neck: normal visual inspection Chest: Chest palpation & inspection: normal inspection of the chest Resp: Effort & Inspection: normal respiratory effort and able to speak in complete sentences Auscultation: no crackles, no rales, no rhonchi, wheezes and lung sounds not diminished Other: Bilateral expiratory wheezes Cardio: Jugular venous distension: no JVD GI: Inspection: normal to inspection GI Palp: No abdominal tenderness Other: tight Skin: General skin exam: normal color Neuro: General: oriented to person, oriented to place and oriented to time Extrem: General: normal to inspection and no edema Psych: Appearance: grossly normal Objective Data Vital Signs Vital Signs: Vital Signs - 24 hr 07/21/24 10:00 07/21/24 11:53 07/21/24 11:53 Temperature Pulse Rate 102 H 81 Respiratory Rate 20 Blood Pressure Pulse Oximetry 96 Oxygen Delivery Nasal Cannula Oxygen Flow Rate 4 Fraction of Inspired Oxygen 07/21/24 12:00 07/21/24 12:00 07/21/24 12:00 Temperature 37.1 C Pulse Rate 94 97 Respiratory Rate 16 Blood Pressure 117/100 H Pulse Oximetry 96 92 Oxygen Delivery BiPAP Oxygen Flow Rate Fraction of Inspired Oxygen 32 07/21/24 12:09 07/21/24 13:21 07/21/24 14:00 Temperature Pulse Rate 88 90 88 Respiratory Rate 20 20 Blood Pressure Pulse Oximetry 92 Oxygen Delivery BiPAP Oxygen Flow Rate Fraction of Inspired Oxygen 07/21/24 16:00 07/21/24 16:00 07/21/24 16:00 Temperature 36.4 C Pulse Rate 87 92 Respiratory Rate 20 Blood Pressure 109/42 L Pulse Oximetry 93 95 Oxygen Delivery BiPAP Oxygen Flow Rate Fraction of Inspired Oxygen 32 07/21/24 17:00 07/21/24 17:30 07/21/24 17:39 Temperature Pulse Rate 104 H 101 H Respiratory Rate 20 20 Blood Pressure 116/81 Pulse Oximetry Oxygen Delivery Oxygen Flow Rate Fraction of Inspired Oxygen 07/21/24 18:00 07/21/24 20:00 07/21/24 20:00 Temperature Pulse Rate 93 81 Respiratory Rate Blood Pressure Pulse Oximetry 90 Oxygen Delivery Nasal Cannula Oxygen Flow Rate 3 Fraction of Inspired Oxygen 07/21/24 20:11 07/21/24 20:16 07/21/24 20:24 Temperature 37.0 C Pulse Rate 105 H 86 86 Respiratory Rate 22 H 24 H 24 H Blood Pressure 112/69 Pulse Oximetry 95 92 Oxygen Delivery BiPAP Oxygen Flow Rate Fraction of Inspired Oxygen 07/21/24 22:00 07/21/24 22:27 07/22/24 00:00 Temperature Pulse Rate 101 H 90 88 Respiratory Rate 28 H Blood Pressure Pulse Oximetry 94 Oxygen Delivery BiPAP Oxygen Flow Rate Fraction of Inspired Oxygen 07/22/24 00:00 07/22/24 00:23 07/22/24 02:00 Temperature 37.2 C Pulse Rate 91 95 Respiratory Rate 20 Blood Pressure 130/62 Pulse Oximetry 95 95 Oxygen Delivery Nasal Cannula Oxygen Flow Rate 3 Fraction of Inspired Oxygen 07/22/24 03:44 07/22/24 04:00 07/22/24 04:00 Temperature 36.9 C Pulse Rate 102 H 98 Respiratory Rate 20 Blood Pressure 122/60 Pulse Oximetry 94 97 Oxygen Delivery Nasal Cannula Oxygen Flow Rate 3 Fraction of Inspired Oxygen 07/22/24 04:26 07/22/24 05:40 07/22/24 05:42 Temperature Pulse Rate 67 67 Respiratory Rate 19 19 Blood Pressure Pulse Oximetry 97 97 Oxygen Delivery BiPAP Oxygen Flow Rate Fraction of Inspired Oxygen 07/22/24 06:00 07/22/24 06:15 07/22/24 06:22 Temperature Pulse Rate 96 Respiratory Rate Blood Pressure Pulse Oximetry 87 L 92 Oxygen Delivery Nasal Cannula Nasal Cannula Oxygen Flow Rate 3 5 Fraction of Inspired Oxygen 07/22/24 07:55 07/22/24 08:04 07/22/24 08:08 Temperature 36.2 C L Pulse Rate 97 95 Respiratory Rate 16 18 Blood Pressure 134/87 Pulse Oximetry 94 92 Oxygen Delivery Nasal Cannula Oxygen Flow Rate 5 Fraction of Inspired Oxygen 07/22/24 08:41 Temperature Pulse Rate 102 H Respiratory Rate 18 Blood Pressure Pulse Oximetry Oxygen Delivery Oxygen Flow Rate Fraction of Inspired Oxygen Intake/Output Intake/Output: Intake & Output 07/19/24 07/20/24 07/21/24 07/22/24 23:59 23:59 23:59 23:59 Intake Total 1180 1000 Output Total 1150 800 Balance 30 200 Meds/Results Medications: Active Medications Generic Name Dose Route Start Last Admin Trade Name Freq PRN Reason Stop Dose Admin Acetaminophen 650 mg 07/20/24 21:59 Acetaminophen 325 Mg Tablet PO Q4H PRN Mild Pain (1-3) or Fever Amlodipine Besylate 10 mg 07/21/24 09:00 07/22/24 09:03 Amlodipine Besylate 10 Mg Tablet PO 10 mg DAILY EDMUNDO Administration Apixaban 5 mg 07/21/24 09:00 07/22/24 09:03 Apixaban 5 Mg Tablet PO 5 mg Q12HR EDMUNDO Administration Bacitracin 1 applic 07/21/24 09:00 07/22/24 09:03 Bacitracin Ointment 15 Gm Tube TOPICAL 1 applic Q12HR EDMUNDO Administration Cephalexin HCl 500 mg 07/21/24 21:00 07/22/24 09:03 Cephalexin 500 Mg Capsule PO 07/26/24 20:59 500 mg Q12HR EDMUNDO Administration Dextrose 12.5 gm 07/21/24 01:58 Dextrose 50% 25 Gm/50 Ml Syringe IV PUSH PRN PRN Hypoglycemia Protocol Furosemide 40 mg 07/21/24 17:00 07/22/24 09:03 Furosemide Inj 40 Mg/4 Ml Vial IV PUSH 40 mg BID EDMUNDO Administration Glucagon 1 mg 07/21/24 01:58 Glucagon For Inj 1 Mg Vial IM PRN PRN Hypoglycemia Protocol Glucose 15 gm 07/21/24 01:58 Glucose Oral Gel 15 Gm Of Glucse In 37.5 Gm Tube PO PRN PRN Hypoglycemia Protocol Guaifenesin 1,200 mg 07/21/24 09:55 07/22/24 09:03 Guaifenesin 12 Hr 600 Mg Tabcr PO 1,200 mg Q12HR EDMUNDO Administration Dextrose 1,000 mls @ 100 mls/hr 07/21/24 01:58 Dextrose 5% 1,000 Ml IVPB PRN PRN Hypoglycemia Protocol Insulin Aspart 3 - 6 units 07/21/24 08:00 07/22/24 08:01 Insulin Aspart (*Bkc) 100 Units/Ml SUB-Q Not Given TIDWM EDMUNDO Protocol Insulin Aspart 1 - 3 units 07/21/24 21:00 07/21/24 20:54 Insulin Aspart (*Bkc) 100 Units/Ml SUB-Q 1 units HS EDMUNDO Administration Protocol Ipratropium [place] 0.5 mg 07/21/24 12:00 07/22/24 08:03 Ipratropium Br 0.02% Inh Soln 0.5 Mg/2.5 Ml Vial INHALATION 0.5 mg Q4HRT EDMUNDO Administration Levalbuterol HCl 1.25 mg 07/21/24 12:00 07/22/24 08:03 Levalbuterol Neb 1.25 Mg/3 Ml INHALATION 1.25 mg Q4HRT EDMUNDO Administration Lisinopril 20 mg 07/21/24 09:00 07/22/24 09:03 Lisinopril 20 Mg Tablet PO 20 mg DAILY EDMUNDO Administration Metformin HCl 1,000 mg 07/21/24 08:00 07/22/24 09:03 Metformin Hcl 500 Mg Tablet PO 1,000 mg BIDWM EDMUNDO Administration Methylprednisolone Sodium Succinate 20 mg 07/21/24 12:00 07/22/24 06:17 Methylprednisolone Sod Succ 125 Mg Vial IV PUSH 20 mg Q6HR EDMUNDO Administration Multivitamins/Minerals 1 tablet 07/21/24 09:00 07/22/24 09:02 Opti-Gen Tab PO 1 tablet DAILY EDMUNDO Administration Mupirocin 1 applic 07/22/24 09:00 07/22/24 09:03 Mupirocin 2% Oint 22 Gm Tube EACH NARE 07/26/24 21:01 1 applic Q12HR EDMUNDO Administration Ondansetron HCl 4 mg 07/20/24 21:59 Ondansetron Inj 4 Mg/2 Ml Vial IV PUSH Q4H PRN Nausea Perflutren Lipid Microsphere 0 ml 07/21/24 03:15 Perflutren Lipid Microspheres 1.5 Ml Vial Diluted To 10 Ml Total Volume IV PUSH 07/24/24 03:16 ONCE PRN adequate visualization Protocol Sertraline HCl 50 mg 07/21/24 09:00 07/22/24 09:02 Sertraline Hcl 50 Mg Tablet PO 50 mg DAILY EDMUNDO Administration Radiology Results: ITS Impressions Chest X-Ray 07/20/24 18:24 IMPRESSION: No focal infiltrate or effusion. Venous Doppler Study 07/21/24 14:43 IMPRESSION: 1. No deep venous thrombosis in either lower limb. Labs Labs: Laboratory Results - last 24 hr 07/21/24 07/21/24 07/21/24 03:45 12:00 16:03 WBC RBC Hgb Hct MCV MCH MCHC RDW Plt Count MPV Puncture Site ABG pH ABG pCO2 ABG pO2 ABG PO2/FiO2 Ratio ABG HCO3 ABG O2 Saturation ABG O2 Content ABG Base Excess A-a Gradient Oxyhemoglobin Total Hemoglobin O2 Delivery Device O2 Liters/Min FiO2 Expiratory Pressure Inspiratory Pressure Sodium Potassium Chloride Carbon Dioxide Anion Gap BUN Creatinine Estim Creat Clear Calc Estimated GFR Glucose POC Capillary Glucose 197 H 214 H Hemoglobin A1c 7.2 H Calcium Total Bilirubin AST ALT Alkaline Phosphatase NT-Pro-B Natriuret Pep Total Protein Albumin Nasal MRSA (PCR) 07/21/24 07/21/24 07/22/24 19:45 20:48 04:31 WBC RBC Hgb Hct MCV MCH MCHC RDW Plt Count MPV Puncture Site Left radial ABG pH 7.301 L ABG pCO2 67.8 H* ABG pO2 80.3 ABG PO2/FiO2 Ratio 2.51 ABG HCO3 32.7 H ABG O2 Saturation 94.3 L ABG O2 Content 19.2 ABG Base Excess 4.0 A-a Gradient 68.5 Oxyhemoglobin 93.9 Total Hemoglobin 14.5 O2 Delivery Device Bipap O2 Liters/Min Not Reportable FiO2 32 Expiratory Pressure 10 Inspiratory Pressure Not Reportable Sodium Potassium Chloride Carbon Dioxide Anion Gap BUN Creatinine Estim Creat Clear Calc Estimated GFR Glucose POC Capillary Glucose 202 H Hemoglobin A1c Calcium Total Bilirubin AST ALT Alkaline Phosphatase NT-Pro-B Natriuret Pep Total Protein Albumin Nasal MRSA (PCR) Detected A* 07/22/24 07/22/2407/22/25 05:39 05:41 07:47 WBC 16.1 H RBC 4.72 Hgb 13.9 L Hct 46.2 MCV 97.9 MCH 29.4 MCHC 30.1 L RDW 14.5 Plt Count 213 MPV 9.2 Puncture Site ABG pH ABG pCO2 ABG pO2 ABG PO2/FiO2 Ratio ABG HCO3 ABG O2 Saturation ABG O2 Content ABG Base Excess A-a Gradient Oxyhemoglobin Total Hemoglobin O2 Delivery Device O2 Liters/Min FiO2 Expiratory Pressure Inspiratory Pressure Sodium 140 Potassium 4.9 Chloride 99 Carbon Dioxide 35 H Anion Gap 6 BUN 35 H D Creatinine 0.90 Estim Creat Clear Calc 127 Estimated GFR > 60 Glucose 179 H POC Capillary Glucose 196 H Hemoglobin A1c Calcium 8.6 Total Bilirubin 0.4 AST 47 ALT 44 Alkaline Phosphatase 81 NT-Pro-B Natriuret Pep 1810 H Total Protein 8.0 Albumin 3.7 Nasal MRSA (PCR)
[2024-07-22] MEDS: INSULIN ASPART (*BKC) 100 UNITS/ML SUB-Q (11:44)
[2024-07-22 14:18] LABS: Glucose Point of Care 207 mg/dl (65-105)
--- NOTE | 2024-07-22 15:05 | P.PNIM_ITS ---
Progress Note: A&P Assessment and Plan (1) Acute on chronic respiratory failure with hypoxia and hypercapnia: Code(s): J96.21 - Acute and chronic respiratory failure with hypoxia; J96.22 - Acute and chronic respiratory failure with hypercapnia Status: Acute Assessment and Plan: -Likely combination of COPD exacerbation and underlying obesity hypoventilation syndrome. -BiPAP 02/20 with a rate of 22. - Xopenex and Atrovent. -S/P Decadron per EMS x1. -Will continue IV Solu-Medrol q.6 hours. -Advised Smoking cessation and Weight loss (2) Acute respiratory acidosis: Code(s): J96.02 - Acute respiratory failure with hypercapnia Status: Acute Assessment and Plan: Please see above (3) Atrial fibrillation with RVR: Code(s): I48.91 - Unspecified atrial fibrillation Status: Acute Assessment and Plan: -Rate improved control after 1 dose of Cardizem in the ER. - ECHO shows Left ventricular systolic function is normal, estimated at 60-65%. -Chads Vasc score 3. -Eliquis 5 mg p.o. b.i.d.. (4) Impetigo: Code(s): L01.00 - Impetigo, unspecified Status: Acute Assessment and Plan: -shaved with his electric razor that had not been cleaned in quite some time. -Bactroban ointment b.i.d. for 7 days. 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 Will add moderate dose sliding scale insulin with Accu-Cheks a.c. HS and will continue home metformin. (6) KATIE (obstructive sleep apnea): Code(s): G47.33 - Obstructive sleep apnea (adult) (pediatric) Status: Acute Assessment and Plan: BiPAP as discussed above (7) COPD (chronic obstructive pulmonary disease): Qualifiers: COPD type: COPD with acute exacerbation Qualified Code(s): J44.1 - Chronic obstructive pulmonary disease with (acute) exacerbation Code(s): J44.9 - Chronic obstructive pulmonary disease, unspecified Status: Acute Assessment and Plan: Steroids and nebulizers as discussed above (8) Edema of abdominal wall: Code(s): R60.0 - Localized edema Status: Acute Assessment and Plan: Left ventricular systolic function is normal, estimated at 60-65%. Start Lasix 40 mg PO BID x 3 days. (9) Class 3 severe obesity with body mass index (BMI) of 60.0 to 69.9 in adult: Qualifiers: Obesity type: due to excess calories Serious obesity comorbidity presence: with serious comorbidity Qualified Code(s): E66.813 - Obesity, class 3; Z68.44 - Body mass index [BMI] 60.0-69.9, adult Code(s): E66.813 - Obesity, class 3; Z68.44 - Body mass index [BMI] 60.0-69.9, adult Status: Acute Assessment and Plan: Aggressive diet lifestyle modification recommended. Plan Patient has been admitted as observation status. Subjective Date/time seen: 07/22/24 15:05 Interval history: Patient reports feeling better.Continue weaning O2.Will undergo overnight oximetry tonight. Review of Systems Review of Systems: 12 systems were reviewed with pertinent positives and negatives per HPI. Except as documented in the HPI, all other systems were reviewed and are negative. Exam Narrative: Weight 201.4 kg BMI 60.2 Objective Data Vital Signs Vital Signs: Vital Signs - 24 hr 07/21/24 16:00 07/21/24 16:00 07/21/24 16:00 Temperature 97.6 F Pulse Rate 87 92 Respiratory Rate 20 Blood Pressure 109/42 L Pulse Oximetry 93 95 Oxygen Delivery BiPAP Oxygen Flow Rate Fraction of Inspired Oxygen 32 07/21/24 17:00 07/21/24 17:30 07/21/24 17:39 Temperature Pulse Rate 104 H 101 H Respiratory Rate 20 20 Blood Pressure 116/81 Pulse Oximetry Oxygen Delivery Oxygen Flow Rate Fraction of Inspired Oxygen 07/21/24 18:00 07/21/24 20:00 07/21/24 20:00 Temperature Pulse Rate 93 81 Respiratory Rate Blood Pressure Pulse Oximetry 90 Oxygen Delivery Nasal Cannula Oxygen Flow Rate 3 Fraction of Inspired Oxygen 07/21/24 20:11 07/21/24 20:16 07/21/24 20:24 Temperature 98.6 F Pulse Rate 105 H 86 86 Respiratory Rate 22 H 24 H 24 H Blood Pressure 112/69 Pulse Oximetry 95 92 Oxygen Delivery BiPAP Oxygen Flow Rate Fraction of Inspired Oxygen 07/21/24 22:00 07/21/24 22:27 07/22/24 00:00 Temperature Pulse Rate 101 H 90 88 Respiratory Rate 28 H Blood Pressure Pulse Oximetry 94 Oxygen Delivery BiPAP Oxygen Flow Rate Fraction of Inspired Oxygen 07/22/24 00:00 07/22/24 00:23 07/22/24 02:00 Temperature 98.9 F Pulse Rate 91 95 Respiratory Rate 20 Blood Pressure 130/62 Pulse Oximetry 95 95 Oxygen Delivery Nasal Cannula Oxygen Flow Rate 3 Fraction of Inspired Oxygen 07/22/24 03:44 07/22/24 04:00 07/22/24 04:00 Temperature 98.5 F Pulse Rate 102 H 98 Respiratory Rate 20 Blood Pressure 122/60 Pulse Oximetry 94 97 Oxygen Delivery Nasal Cannula Oxygen Flow Rate 3 Fraction of Inspired Oxygen 07/22/24 04:26 07/22/24 05:40 07/22/24 05:42 Temperature Pulse Rate 67 67 Respiratory Rate 19 19 Blood Pressure Pulse Oximetry 97 97 Oxygen Delivery BiPAP Oxygen Flow Rate Fraction of Inspired Oxygen 07/22/24 06:00 07/22/24 06:15 07/22/24 06:22 Temperature Pulse Rate 96 Respiratory Rate Blood Pressure Pulse Oximetry 87 L 92 Oxygen Delivery Nasal Cannula Nasal Cannula Oxygen Flow Rate 3 5 Fraction of Inspired Oxygen 07/22/24 07:55 07/22/24 08:00 07/22/24 08:00 Temperature 97.1 F L Pulse Rate 97 95 Respiratory Rate 16 Blood Pressure 134/87 Pulse Oximetry 94 94 Oxygen Delivery Nasal Cannula Oxygen Flow Rate 2 Fraction of Inspired Oxygen 07/22/24 08:04 07/22/24 08:08 07/22/24 08:41 Temperature Pulse Rate 95 102 H Respiratory Rate 18 18 Blood Pressure Pulse Oximetry 92 Oxygen Delivery Nasal Cannula Oxygen Flow Rate 5 Fraction of Inspired Oxygen 07/22/24 10:00 07/22/24 11:50 07/22/24 12:00 Temperature 97.9 F Pulse Rate 102 H 120 H Respiratory Rate 20 Blood Pressure 106/72 Pulse Oximetry 95 Oxygen Delivery Nasal Cannula Oxygen Flow Rate 2 Fraction of Inspired Oxygen 07/22/24 12:00 07/22/24 12:00 07/22/24 12:23 Temperature Pulse Rate 110 H Respiratory Rate Blood Pressure Pulse Oximetry 100 Oxygen Delivery Nasal Cannula Nasal Cannula Oxygen Flow Rate 2 2 Fraction of Inspired Oxygen 07/22/24 12:51 07/22/24 13:07 07/22/24 14:00 Temperature Pulse Rate 104 H 106 H 97 Respiratory Rate 18 18 Blood Pressure Pulse Oximetry Oxygen Delivery Oxygen Flow Rate Fraction of Inspired Oxygen Intake/Output Intake/Output: Intake & Output 07/19/24 07/20/24 07/21/24 07/22/24 23:59 23:59 23:59 23:59 Intake Total 1180 1480 Output Total 1150 800 Balance 30 680 Meds/Results Medications: Active Medications Generic Name Dose Route Start Last Admin Trade Name Freq PRN Reason Stop Dose Admin Acetaminophen 650 mg 07/20/24 21:59 Acetaminophen 325 Mg Tablet PO Q4H PRN Mild Pain (1-3) or Fever Amlodipine Besylate 10 mg 07/21/24 09:00 07/22/24 09:03 Amlodipine Besylate 10 Mg Tablet PO 10 mg DAILY EDMUNDO Administration Apixaban 5 mg 07/21/24 09:00 07/22/24 09:03 Apixaban 5 Mg Tablet PO 5 mg Q12HR EDMUNDO Administration Bacitracin 1 applic 07/21/24 09:00 07/22/24 09:03 Bacitracin Ointment 15 Gm Tube TOPICAL 1 applic Q12HR EDMUNDO Administration Dextrose 12.5 gm 07/21/24 01:58 Dextrose 50% 25 Gm/50 Ml Syringe IV PUSH PRN PRN Hypoglycemia Protocol Furosemide 40 mg 07/21/24 17:00 07/22/24 09:03 Furosemide Inj 40 Mg/4 Ml Vial IV PUSH 40 mg BID EDMUNDO Administration Glucagon 1 mg 07/21/24 01:58 Glucagon For Inj 1 Mg Vial IM PRN PRN Hypoglycemia Protocol Glucose 15 gm 07/21/24 01:58 Glucose Oral Gel 15 Gm Of Glucse In 37.5 Gm Tube PO PRN PRN Hypoglycemia Protocol Guaifenesin 1,200 mg 07/21/24 09:55 07/22/24 09:03 Guaifenesin 12 Hr 600 Mg Tabcr PO 1,200 mg Q12HR EDMUNDO Administration Dextrose 1,000 mls @ 100 mls/hr 07/21/24 01:58 Dextrose 5% 1,000 Ml IVPB PRN PRN Hypoglycemia Protocol Insulin Aspart 3 - 6 units 07/21/24 08:00 07/22/24 11:44 Insulin Aspart (*Bkc) 100 Units/Ml SUB-Q 3 units TIDWM EDMUNDO Administration Protocol Insulin Aspart 1 - 3 units 07/21/24 21:00 07/21/24 20:54 Insulin Aspart (*Bkc) 100 Units/Ml SUB-Q 1 units HS EDMUNDO Administration Protocol Ipratropium [place] 0.5 mg 07/21/24 12:00 07/22/24 12:50 Ipratropium Br 0.02% Inh Soln 0.5 Mg/2.5 Ml Vial INHALATION 0.5 mg Q4HRT EDMUNDO Administration Levalbuterol HCl 1.25 mg 07/21/24 12:00 07/22/24 12:50 Levalbuterol Neb 1.25 Mg/3 Ml INHALATION 1.25 mg Q4HRT EDMUNDO Administration Lisinopril 20 mg 07/21/24 09:00 07/22/24 09:03 Lisinopril 20 Mg Tablet PO 20 mg DAILY EDMUNDO Administration Metformin HCl 1,000 mg 07/21/24 08:00 07/22/24 09:03 Metformin Hcl 500 Mg Tablet PO 1,000 mg BIDWM EDMUNDO Administration Methylprednisolone Sodium Succinate 20 mg 07/21/24 12:00 07/22/24 11:44 Methylprednisolone Sod Succ 125 Mg Vial IV PUSH 20 mg Q6HR EDMUNDO Administration Multivitamins/Minerals 1 tablet 07/21/24 09:00 07/22/24 09:02 Opti-Gen Tab PO 1 tablet DAILY EDMUNDO Administration Mupirocin 1 applic 07/22/24 09:00 07/22/24 09:03 Mupirocin 2% Oint 22 Gm Tube EACH NARE 07/26/24 21:01 1 applic Q12HR EDMUNDO Administration Ondansetron HCl 4 mg 07/20/24 21:59 Ondansetron Inj 4 Mg/2 Ml Vial IV PUSH Q4H PRN Nausea Perflutren Lipid Microsphere 0 ml 07/21/24 03:15 Perflutren Lipid Microspheres 1.5 Ml Vial Diluted To 10 Ml Total Volume IV PUSH 07/24/24 03:16 ONCE PRN adequate visualization Protocol Sertraline HCl 50 mg 07/21/24 09:00 07/22/24 09:02 Sertraline Hcl 50 Mg Tablet PO 50 mg DAILY EDMUNDO Administration Trimethoprim/Sulfamethoxazole 1 tab 07/22/24 21:00 Sulfamethoxazole/Trimethoprim 800/160 Mg Ds Tablet PO Q12HR [facility] Radiology Results: ITS Impressions Chest X-Ray 07/20/24 18:24 IMPRESSION: No focal infiltrate or effusion. Venous Doppler Study 07/21/24 14:43 IMPRESSION: 1. No deep venous thrombosis in either lower limb. Chest CT 07/22/24 12:11 Impression: Mild bibasilar atelectasis or scarring, otherwise clear lungs. Labs Labs: Laboratory Results - last 24 hr 07/21/24 07/21/24 07/21/24 03:45 16:03 19:45 WBC RBC Hgb Hct MCV MCH MCHC RDW Plt Count MPV Puncture Site ABG pH ABG pCO2 ABG pO2 ABG PO2/FiO2 Ratio ABG HCO3 ABG O2 Saturation ABG O2 Content ABG Base Excess A-a Gradient Oxyhemoglobin Total Hemoglobin O2 Delivery Device O2 Liters/Min FiO2 Expiratory Pressure Inspiratory Pressure Sodium Potassium Chloride Carbon Dioxide Anion Gap BUN Creatinine Estim Creat Clear Calc Estimated GFR Glucose POC Capillary Glucose 214 H Hemoglobin A1c 7.2 H Calcium Total Bilirubin AST ALT Alkaline Phosphatase NT-Pro-B Natriuret Pep Total Protein Albumin Nasal MRSA (PCR) Detected A* 07/21/24 07/22/24 07/22/24 20:48 04:31 05:39 WBC RBC Hgb Hct MCV MCH MCHC RDW Plt Count MPV Puncture Site Left radial ABG pH 7.301 L ABG pCO2 67.8 H* ABG pO2 80.3 ABG PO2/FiO2 Ratio 2.51 ABG HCO3 32.7 H ABG O2 Saturation 94.3 L ABG O2 Content 19.2 ABG Base Excess 4.0 A-a Gradient 68.5 Oxyhemoglobin 93.9 Total Hemoglobin 14.5 O2 Delivery Device Bipap O2 Liters/Min Not Reportable FiO2 32 Expiratory Pressure 10 Inspiratory Pressure Not Reportable Sodium Potassium Chloride Carbon Dioxide Anion Gap BUN Creatinine Estim Creat Clear Calc Estimated GFR Glucose POC Capillary Glucose 202 H Hemoglobin A1c Calcium Total Bilirubin AST ALT Alkaline Phosphatase NT-Pro-B Natriuret Pep 1810 H Total Protein Albumin Nasal MRSA (PCR) 07/22/24 07/22/2425 05:41 07:47 11:39 WBC 16.1 H RBC 4.72 Hgb 13.9 L Hct 46.2 MCV 97.9 MCH 29.4 MCHC 30.1 L RDW 14.5 Plt Count 213 MPV 9.2 Puncture Site ABG pH ABG pCO2 ABG pO2 ABG PO2/FiO2 Ratio ABG HCO3 ABG O2 Saturation ABG O2 Content ABG Base Excess A-a Gradient Oxyhemoglobin Total Hemoglobin O2 Delivery Device O2 Liters/Min FiO2 Expiratory Pressure Inspiratory Pressure Sodium 140 Potassium 4.9 Chloride 99 Carbon Dioxide 35 H Anion Gap 6 BUN 35 H D Creatinine 0.90 Estim Creat Clear Calc 127 Estimated GFR > 60 Glucose 179 H POC Capillary Glucose 196 H 207 H Hemoglobin A1c Calcium 8.6 Total Bilirubin 0.4 AST 47 ALT 44 Alkaline Phosphatase 81 NT-Pro-B Natriuret Pep Total Protein 8.0 Albumin 3.7 Nasal MRSA (PCR) Quality VTE Prophylaxis VTE prophylaxis: pharmacologic ordered (Start Eliquis.) Hospitalist MIPS Advance Care Plan I have confirmed that the patient's Advanced Care Plan is present, code status is documented, or surrogate decision maker is listed in patient medical record.: Yes Medication Reconciliation I have utilized all available resources to obtain, update and review the patients current medications (includes all prescriptions, OTC, herbals, cannabis, and nutritional supplements).: Yes
[2024-07-22 15:59] LABS: Glucose Point of Care 182 mg/dl (65-105)
--- NOTE | 2024-07-22 17:53 | PCRCNOTE ---
Placed pt. on new home niv unit for a nap. Pt. Spo2 dropped to the low 80s. Tried adjusting o2 bleed in and no change in spo2. Placed pt. on hospital V60 and pt. spo2 increaced to 96%. Called [facility] to change pt. mask from a nasal mask to a full face mask. They will attempt to deliver new mask this evening so apnea link and abg can still be done tonight. Called Dr. Murray to update him on home machine, he stated if new full face mask can be delivered tonight to proceed with apnea link and abg per orders. If the new mask CAN NOT be delivered to still proceed with apnea link and morning abg, but to use the hospital V60 on the following AVAPS settings. F20, Vt 550, Epap 10, Inspiratory pressure 11-25, Fio2 32%.
[2024-07-22] MEDS: SULFAMETHOXAZOLE/TRIMETHOPRIM 800/160 MG DS TABLET 1 TAB PO (20:56)
[2024-07-22 21:08] LABS: Glucose Point of Care 194 mg/dl (65-105)
[2024-07-23] VITALS (26 sets, daily range): BP systolic 126–147; BP diastolic 79–95; PULSE 78–113; RESP 12–24; TEMP 35.6–36.7; O2SAT 93–100
--- NOTE | 2024-07-23 02:04 | PCRCNOTE ---
Patient did not receive 00:00 updraft treatment due to being on an overnight oximetry study. This RT will administer treatment upon removal of study @ approx 9201.
--- NOTE | 2024-07-23 02:53 | PC.NURSE ---
The patient has been repeatedly removing his monitoring equipment, his BIPAP and/or O2, and has removed his own IV on occasion as well. He has remained A&O throughout his stay and has not been confused during conversation. The risks of not continuing treatment has been explained to him. He commented that this will not work and that he is too big and too tired to deal with being here. This RN has had to repeatedly convince him to allow us to keep our monitoring equipment on him. The patient then said he is going to go home later. He was advised against that and told that he would not get a resolution to his problems without having the tests done the doctors have ordered for him. He was insistent that he believes that you guys are just out for the money and that we should wait until trump's tariffs kick in and things change. He was told that in order to leave now he would have to sign out AMA, he did not wish to pursue that at this time.
[2024-07-23] MEDS: LEVALBUTEROL NEB 1.25 MG/3 ML INHALATION ×5 (03:05→21:50)
[2024-07-23] MEDS: IPRATROPIUM BR 0.02% INH SOLN 0.5 MG/2.5 ML VIAL INHALATION ×5 (03:05→21:50)
--- NOTE | 2024-07-23 03:14 | PCRCNOTE ---
At 0235 Patient insisted bipap mask be removed. This RT terminated the overnight study. RT will run the study as we were able to get 4 hours documented. Patient also refused abg draw this a.m.. Since 00:00 updraft tx was omitted due to apnea link, RT administered pt's 0400 tx @ 0305.
[2024-07-23 04:21] LABS: Hemoglobin 14.1 g/dL (14.0-18.0); Mean Corpuscular HGB Conc 29.4 g/dl (32-36); Mean Corpuscular Hemoglobin 28.7 pg (26-34); Mean Corpuscular Volume 97.6 fl (80-100); Mean Platelet Volume 9.3 fl (7.4-10.4); Platelet Count Result 228 k/mm3 (150-375); Red Blood Count 4.92 M/mm3 (4.6-6.20); Red Cell Distribution Width 14.6 % (11.5-14.5); White Blood Count 13.7 K/mm3 (4.5-10.0)
[2024-07-23 04:37] LABS: Alanine Aminotransferase 50 U/L (6-50); Alkaline Phosphatase 83 U/L (38-126); Anion Gap 9 mmol/L (4-12); Aspartate Amino Transferase 63 U/L (17-59); Bilirubin,Total 0.4 mg/dL (0.2-1.3); Blood Urea Nitrogen 42 mg/dL (9-20); Carbon Dioxide 36 mmol/L (22-30); Chloride 95 mmol/L (98-107); Estimated CRCL calculation 120 ml/min; Estimated Glomerular Filt Rate > 60; Glucose 196 mg/dL (65-110); Potassium 4.6 mmol/L (3.4-5.0); Sodium 140 mmol/L (137-145)
[2024-07-23] MEDS: methylPREDNISolone SOD SUCC 125 MG VIAL 20 MG IV PUSH (06:03)
[2024-07-23] MEDS: lisinopriL 20 MG TABLET PO (08:30)
[2024-07-23] MEDS: amLODIPine BESYLATE 10 MG TABLET PO (08:30)
[2024-07-23] MEDS: SULFAMETHOXAZOLE/TRIMETHOPRIM 800/160 MG DS TABLET 1 TAB PO ×2 (08:30→21:51)
[2024-07-23] MEDS: metFORMIN HCL 500 MG TABLET 1000 MG PO ×2 (08:30→18:16)
[2024-07-23] MEDS: SERTRALINE HCL 50 MG TABLET PO (08:30)
[2024-07-23] MEDS: FUROSEMIDE INJ 40 MG/4 ML VIAL IV PUSH ×2 (08:30→18:17)
[2024-07-23] MEDS: MUPIROCIN 2% OINT 22 GM TUBE 1 APPLIC EACH NARE ×2 (08:30→21:52)
[2024-07-23] MEDS: APIXABAN 5 MG TABLET PO ×2 (08:30→21:51)
[2024-07-23] MEDS: guaiFENesin 12 HR 600 MG TABCR 1200 MG PO ×2 (08:30→21:50)
[2024-07-23] MEDS: OPTI-GEN TAB 1 TABLET PO (08:30)
[2024-07-23] MEDS: BACITRACIN OINTMENT 15 GM TUBE 1 APPLIC TOPICAL ×2 (08:31→21:51)
[2024-07-23 08:37] LABS: Glucose Point of Care 191 mg/dl (65-105)
[2024-07-23 12:05] LABS: Glucose Point of Care 232 mg/dl (65-105)
[2024-07-23 15:58] LABS: Glucose Point of Care 190 mg/dl (65-105)
--- NOTE | 2024-07-23 16:03 | PM.IMPN ---
Progress Note: A&P Assessment and Plan (1) Acute on chronic respiratory failure with hypoxia and hypercapnia: Code(s): J96.21 - Acute and chronic respiratory failure with hypoxia; J96.22 - Acute and chronic respiratory failure with hypercapnia Status: Acute Assessment and Plan: -Likely combination of COPD exacerbation and underlying obesity hypoventilation syndrome. -BiPAP 12/8 with a rate of 22. - Xopenex and Atrovent. -S/P Decadron per EMS x1. -s/p IV Solu-Medrol q.6 hours. -prednisone 40 mg for 5 days -Advised Smoking cessation and Weight loss -CT scan shows mild bibasilar atelectasis or scaring otherwise clear lungs (2) Acute respiratory acidosis: Code(s): J96.02 - Acute respiratory failure with hypercapnia Status: Acute Assessment and Plan: Please see above (3) Atrial fibrillation with RVR: Code(s): I48.91 - Unspecified atrial fibrillation Status: Acute Assessment and Plan: -Rate improved control after 1 dose of Cardizem in the ER. - ECHO shows Left ventricular systolic function is normal, estimated at 60-65%. -Chads Vasc score 3. -Eliquis 5 mg p.o. b.i.d.. -upon discharge with even monitor and advised to follow-up with cardiology as an outpatient (4) Impetigo: Code(s): L01.00 - Impetigo, unspecified Status: Acute Assessment and Plan: -shaved with his electric razor that had not been cleaned in quite some time. -Bactroban ointment b.i.d. for 7 days. -D/C Keflex 500 mg PO BID x 5 days -Nasal MRSA positive and changed to Bactrim DS -Wound culture pending (5) Type 2 diabetes mellitus: Qualifiers: Diabetes mellitus salvage determiner insulin use: without residential use Diabetes mellitus complication status: without complication Qualified Code(s): E11.9 - Type 2 diabetes mellitus without complications Code(s): E11.9 - Type 2 diabetes mellitus without complications Status: Acute Assessment and Plan: Patient is relatively euglycemic but is receiving steroid therapy due to COPD exacerbation. Will add moderate dose sliding scale insulin with Accu-Cheks a.c. HS and will continue home metformin. (6) KATIE (obstructive sleep apnea): Code(s): G47.33 - Obstructive sleep apnea (adult) (pediatric) Status: Acute Assessment and Plan: BiPAP as discussed above (7) COPD (chronic obstructive pulmonary disease): Qualifiers: COPD type: COPD with acute exacerbation Qualified Code(s): J44.1 - Chronic obstructive pulmonary disease with (acute) exacerbation Code(s): J44.9 - Chronic obstructive pulmonary disease, unspecified Status: Acute Assessment and Plan: Steroids and nebulizers as discussed above (8) Edema of abdominal wall: Code(s): R60.0 - Localized edema Status: Acute Assessment and Plan: Left ventricular systolic function is normal, estimated at 60-65%. Start Lasix 40 mg PO BID x 3 days. (9) Class 3 severe obesity with body mass index (BMI) of 60.0 to 69.9 in adult: Qualifiers: Obesity type: due to excess calories Serious obesity comorbidity presence: with serious comorbidity Qualified Code(s): E66.813 - Obesity, class 3; Z68.44 - Body mass index [BMI] 60.0-69.9, adult Code(s): E66.813 - Obesity, class 3; Z68.44 - Body mass index [BMI] 60.0-69.9, adult Status: Acute Assessment and Plan: Aggressive diet lifestyle modification recommended. Plan Patient has been admitted as observation status. Subjective Date/time seen: 07/23/24 16:03 Interval history: Patient is currently doing well. CT shows mild bibasilar atelectasis or scaring. No evidence of any infection. Switched to prednisone 40 mg p.o. q.d. for 5 days. Discussed with the stubber and Respiratory therapy to bring the mask for omission with 4 L bleed in and get apnea link and ABG in the morning. In case if he was not able to get home mask patient will undergo with hospital machine 36% with ApneaLink and ABG in the morning. Review of Systems Review of Systems: 12 systems were reviewed with pertinent positives and negatives per HPI. Except as documented in the HPI, all other systems were reviewed and are negative. Exam Narrative: Weight 201.4 kg BMI 60.2 Objective Data Vital Signs Vital Signs: Vital Signs - 24 hr 07/22/24 16:08 07/22/24 16:21 07/22/24 18:00 Temperature Pulse Rate 108 H 105 H 100 Respiratory Rate 18 18 Blood Pressure Pulse Oximetry Oxygen Delivery Oxygen Flow Rate Fraction of Inspired Oxygen 07/22/24 20:00 07/22/24 20:00 07/22/24 20:24 Temperature 97.5 F L Pulse Rate 108 H 90 Respiratory Rate 22 H Blood Pressure 101/60 Pulse Oximetry 100 90 Oxygen Delivery Nasal Cannula Oxygen Flow Rate 2 Fraction of Inspired Oxygen 07/22/24 20:45 07/22/24 20:45 07/22/24 21:01 Temperature Pulse Rate 91 94 Respiratory Rate 18 18 Blood Pressure Pulse Oximetry 100 Oxygen Delivery Nasal Cannula Oxygen Flow Rate 3 Fraction of Inspired Oxygen 07/22/24 22:00 07/22/24 22:15 07/22/24 22:15 Temperature Pulse Rate 93 92 92 Respiratory Rate 21 H Blood Pressure Pulse Oximetry 100 100 Oxygen Delivery BiPAP BiPAP Oxygen Flow Rate Fraction of Inspired Oxygen 32 07/23/24 00:00 07/23/24 00:00 07/23/24 02:00 Temperature Pulse Rate 78 87 Respiratory Rate Blood Pressure Pulse Oximetry 100 Oxygen Delivery BiPAP Oxygen Flow Rate Fraction of Inspired Oxygen 07/23/24 03:06 07/23/24 03:18 07/23/24 04:00 Temperature Pulse Rate 107 H 91 Respiratory Rate 20 18 Blood Pressure Pulse Oximetry 100 Oxygen Delivery BiPAP Oxygen Flow Rate Fraction of Inspired Oxygen 07/23/24 04:00 07/23/24 05:40 07/23/24 06:00 Temperature 97.8 F Pulse Rate 95 86 78 Respiratory Rate 23 H Blood Pressure 147/94 H Pulse Oximetry 100 Oxygen Delivery Oxygen Flow Rate Fraction of Inspired Oxygen 07/23/24 07:41 07/23/24 07:41 07/23/24 07:51 Temperature 97.6 F Pulse Rate 91 95 Respiratory Rate 18 24 H Blood Pressure 129/90 Pulse Oximetry 93 96 Oxygen Delivery Nasal Cannula Oxygen Flow Rate 2 Fraction of Inspired Oxygen 07/23/24 08:00 07/23/24 11:18 07/23/24 11:35 Temperature Pulse Rate 92 84 96 Respiratory Rate 20 20 20 Blood Pressure Pulse Oximetry Oxygen Delivery Oxygen Flow Rate Fraction of Inspired Oxygen 07/23/24 12:00 07/23/24 12:38 Temperature 97.4 F L Pulse Rate 93 103 H Respiratory Rate 12 23 H Blood Pressure 136/95 H Pulse Oximetry 96 97 Oxygen Delivery Oxygen Flow Rate Fraction of Inspired Oxygen Intake/Output Intake/Output: Intake & Output 07/20/24 07/21/24 07/22/24 07/23/24 23:59 23:59 23:59 23:59 Intake Total 1180 1720 1050 Output Total 1150 2500 1600 Balance 00 -496 -044 Meds/Results Medications: Active Medications Generic Name Dose Route Start Last Admin Trade Name Freq PRN Reason Stop Dose Admin Acetaminophen 650 mg 07/20/24 21:59 Acetaminophen 325 Mg Tablet PO Q4H PRN Mild Pain (1-3) or Fever Amlodipine Besylate 10 mg 07/21/24 09:00 07/23/24 08:30 Amlodipine Besylate 10 Mg Tablet PO 10 mg DAILY EDMUNDO Administration Apixaban 5 mg 07/21/24 09:00 07/23/24 08:30 Apixaban 5 Mg Tablet PO 5 mg Q12HR EDMUNDO Administration Bacitracin 1 applic 07/21/24 09:00 07/23/24 08:31 Bacitracin Ointment 15 Gm Tube TOPICAL 1 applic Q12HR EDMUNDO Administration Dextrose 12.5 gm 07/21/24 01:58 Dextrose 50% 25 Gm/50 Ml Syringe IV PUSH PRN PRN Hypoglycemia Protocol Furosemide 40 mg 07/21/24 17:00 07/23/24 08:30 Furosemide Inj 40 Mg/4 Ml Vial IV PUSH 40 mg BID EDMUNDO Administration Glucagon 1 mg 07/21/24 01:58 Glucagon For Inj 1 Mg Vial IM PRN PRN Hypoglycemia Protocol Glucose 15 gm 07/21/24 01:58 Glucose Oral Gel 15 Gm Of Glucse In 37.5 Gm Tube PO PRN PRN Hypoglycemia Protocol Guaifenesin 1,200 mg 07/21/24 09:55 07/23/24 08:30 Guaifenesin 12 Hr 600 Mg Tabcr PO 1,200 mg Q12HR EDMUNDO Administration Dextrose 1,000 mls @ 100 mls/hr 07/21/24 01:58 Dextrose 5% 1,000 Ml IVPB PRN PRN Hypoglycemia Protocol Insulin Aspart 3 - 6 units 07/21/24 08:00 07/23/24 11:58 Insulin Aspart (*Bkc) 100 Units/Ml SUB-Q Not Given TIDWM EDMUNDO Protocol Insulin Aspart 1 - 3 units 07/21/24 21:00 07/22/24 20:55 Insulin Aspart (*Bkc) 100 Units/Ml SUB-Q Not Given HS EDMUNDO Protocol Ipratropium [place] 0.5 mg 07/21/24 12:00 07/23/24 11:18 Ipratropium Br 0.02% Inh Soln 0.5 Mg/2.5 Ml Vial INHALATION 0.5 mg Q4HRT EDMUNDO Administration Levalbuterol HCl 1.25 mg 07/21/24 12:00 07/23/24 11:18 Levalbuterol Neb 1.25 Mg/3 Ml INHALATION 1.25 mg Q4HRT EDMUNDO Administration Lisinopril 20 mg 07/21/24 09:00 07/23/24 08:30 Lisinopril 20 Mg Tablet PO 20 mg DAILY EDMUNDO Administration Metformin HCl 1,000 mg 07/21/24 08:00 07/23/24 08:30 Metformin Hcl 500 Mg Tablet PO 1,000 mg BIDWM EDMUNDO Administration Multivitamins/Minerals 1 tablet 07/21/24 09:00 07/23/24 08:30 Opti-Gen Tab PO 1 tablet DAILY EDMUNDO Administration Mupirocin 1 applic 07/22/24 09:00 07/23/24 08:30 Mupirocin 2% Oint 22 Gm Tube EACH NARE 07/26/24 21:01 1 applic Q12HR EDMUNDO Administration Ondansetron HCl 4 mg 07/20/24 21:59 Ondansetron Inj 4 Mg/2 Ml Vial IV PUSH Q4H PRN Nausea Perflutren Lipid Microsphere 0 ml 07/21/24 03:15 Perflutren Lipid Microspheres 1.5 Ml Vial Diluted To 10 Ml Total Volume IV PUSH 07/24/24 03:16 ONCE PRN adequate visualization Protocol Prednisone 40 mg 07/24/24 08:00 Prednisone 20 Mg Tablet PO 07/29/24 07:59 DAILY@0800 EDMUNDO Sertraline HCl 50 mg 07/21/24 09:00 07/23/24 08:30 Sertraline Hcl 50 Mg Tablet PO 50 mg DAILY EDMUNDO Administration Trimethoprim/Sulfamethoxazole 1 tab 07/22/24 21:00 07/23/24 08:30 Sulfamethoxazole/Trimethoprim 800/160 Mg Ds Tablet PO 1 tab Q12HR EDMUNDO Administration Radiology Results: ITS Impressions Chest X-Ray 07/20/24 18:24 IMPRESSION: No focal infiltrate or effusion. Venous Doppler Study 07/21/24 14:43 IMPRESSION: 1. No deep venous thrombosis in either lower limb. Chest CT 07/22/24 12:11 Impression: Mild bibasilar atelectasis or scarring, otherwise clear lungs. Labs Labs: Laboratory Results - last 24 hr 07/22/24 07/23/24 07/23/24 20:54 03:39 07:32 WBC 13.7 H RBC 4.92 Hgb 14.1 Hct 48.0 MCV 97.6 MCH 28.7 MCHC 29.4 L RDW 14.6 H Plt Count 228 MPV 9.3 Sodium 140 Potassium 4.6 Chloride 95 L Carbon Dioxide 36 H Anion Gap 9 BUN 42 H Creatinine 0.96 Estim Creat Clear Calc 120 Estimated GFR > 60 Glucose 196 H POC Capillary Glucose 194 H 191 H Calcium 9.0 Total Bilirubin 0.4 AST 63 H ALT 50 Alkaline Phosphatase 83 Total Protein 8.0 Albumin 4.0 07/23/24 07/23/24 11:35 15:53 WBC RBC Hgb Hct MCV MCH MCHC RDW Plt Count MPV Sodium Potassium Chloride Carbon Dioxide Anion Gap BUN Creatinine Estim Creat Clear Calc Estimated GFR Glucose POC Capillary Glucose 232 H 190 H Calcium Total Bilirubin AST ALT Alkaline Phosphatase Total Protein Albumin Quality VTE Prophylaxis VTE prophylaxis: pharmacologic ordered (Start Eliquis.) Hospitalist MIPS Advance Care Plan I have confirmed that the patient's Advanced Care Plan is present, code status is documented, or surrogate decision maker is listed in patient medical record.: Yes Medication Reconciliation I have utilized all available resources to obtain, update and review the patients current medications (includes all prescriptions, OTC, herbals, cannabis, and nutritional supplements).: Yes
[2024-07-23 22:14] LABS: Glucose Point of Care 143 mg/dl (65-105)
[2024-07-24] VITALS (18 sets, daily range): BP systolic 100–141; BP diastolic 64–89; PULSE 83–117; RESP 16–24; TEMP 36.4–37.3; O2SAT 87–100
[2024-07-24 05:51] LABS: Alveolar/Arterial O2 Gradient 114.2 mmHg; Carboxyhemoglobin 1.3 % THb (0-2.0); Fractional Inspired Oxygen 36 %; HCO3 ABG 39.3 mEq/l (22.0-26.0); Methemoglobin ABG 0.1 %THb (0-1.5); Oxygen Saturation ABG 91.7 % (95.0-100.0); Oxyhemoglobin 90.9 % THb (90.0-100.0); PO2 ABG 64.8 mmHg (80.0-100.0); Reduced Hemoglobin 7.7 %THb (0-5.0); Total Hemoglobin 15.7 g/dL (12.0-18.0); pH ABG 7.386 (7.350-7.450)
[2024-07-24 06:32] LABS: Hematocrit 51.8 % (42.0-52.0); Hemoglobin 15.1 g/dL (14.0-18.0); Mean Corpuscular HGB Conc 29.2 g/dl (32-36); Mean Corpuscular Hemoglobin 28.6 pg (26-34); Mean Corpuscular Volume 98.1 fl (80-100); Mean Platelet Volume 8.9 fl (7.4-10.4); Platelet Count Result 223 k/mm3 (150-375); Red Blood Count 5.28 M/mm3 (4.6-6.20); Red Cell Distribution Width 14.6 % (11.5-14.5); White Blood Count 12.5 K/mm3 (4.5-10.0)
[2024-07-24 06:51] LABS: Alanine Aminotransferase 50 U/L (6-50); Albumin Level 3.9 g/dL (3.5-5.1); Alkaline Phosphatase 74 U/L (38-126); Aspartate Amino Transferase 63 U/L (17-59); Bilirubin,Total 0.8 mg/dL (0.2-1.3); Blood Urea Nitrogen 39 mg/dL (9-20); Calcium 8.8 mg/dL (8.4-10.2); Carbon Dioxide > 40 mmol/L (22-30); Chloride 94 mmol/L (98-107); Estimated CRCL calculation 110 ml/min; Estimated Glomerular Filt Rate > 60; Glucose 125 mg/dL (65-110); Sodium 140 mmol/L (137-145)
[2024-07-24 06:59] LABS: NT Pro B Type Natriuretic Pept 1550 pg/mL (19.9-100)
[2024-07-24] MEDS: IPRATROPIUM BR 0.02% INH SOLN 0.5 MG/2.5 ML VIAL INHALATION ×3 (07:26→16:25)
[2024-07-24] MEDS: LEVALBUTEROL NEB 1.25 MG/3 ML INHALATION ×3 (07:27→16:25)
[2024-07-24 07:45] LABS: Glucose Point of Care 133 mg/dl (65-105)
[2024-07-24] MEDS: predniSONE 20 MG TABLET 40 MG PO (09:15)
[2024-07-24] MEDS: metFORMIN HCL 500 MG TABLET 1000 MG PO (09:15)
[2024-07-24] MEDS: amLODIPine BESYLATE 10 MG TABLET PO (09:16)
[2024-07-24] MEDS: OPTI-GEN TAB 1 TABLET PO (09:16)
[2024-07-24] MEDS: APIXABAN 5 MG TABLET PO (09:16)
[2024-07-24] MEDS: SULFAMETHOXAZOLE/TRIMETHOPRIM 800/160 MG DS TABLET 1 TAB PO (09:16)
[2024-07-24] MEDS: SERTRALINE HCL 50 MG TABLET PO (09:16)
[2024-07-24] MEDS: lisinopriL 20 MG TABLET PO (09:16)
[2024-07-24] MEDS: FUROSEMIDE INJ 40 MG/4 ML VIAL IV PUSH (09:16)
[2024-07-24] MEDS: guaiFENesin 12 HR 600 MG TABCR 1200 MG PO (09:16)
[2024-07-24] MEDS: MUPIROCIN 2% OINT 22 GM TUBE 1 APPLIC EACH NARE (09:18)
[2024-07-24] MEDS: BACITRACIN OINTMENT 15 GM TUBE 1 APPLIC TOPICAL (09:18)
--- NOTE | 2024-07-24 10:46 | PM.IMPN ---
Progress Note: A&P Assessment and Plan (1) Acute on chronic respiratory failure with hypoxia and hypercapnia: Code(s): J96.21 - Acute and chronic respiratory failure with hypoxia; J96.22 - Acute and chronic respiratory failure with hypercapnia Status: Acute Assessment and Plan: -Likely combination of COPD exacerbation and underlying obesity hypoventilation syndrome. -BiPAP 12/8 with a rate of 22. - Xopenex and Atrovent. -S/P Decadron per EMS x1. -s/p IV Solu-Medrol q.6 hours. -prednisone 40 mg for 5 days -Advised Smoking cessation and Weight loss -CT scan shows mild bibasilar atelectasis or scaring otherwise clear lungs (2) Acute respiratory acidosis: Code(s): J96.02 - Acute respiratory failure with hypercapnia Status: Acute Assessment and Plan: Please see above (3) Atrial fibrillation with RVR: Code(s): I48.91 - Unspecified atrial fibrillation Status: Acute Assessment and Plan: -Rate improved control after 1 dose of Cardizem in the ER. - ECHO shows Left ventricular systolic function is normal, estimated at 60-65%. -Chads Vasc score 3. -Eliquis 5 mg p.o. b.i.d.. -upon discharge with even monitor and advised to follow-up with cardiology as an outpatient (4) Impetigo: Code(s): L01.00 - Impetigo, unspecified Status: Acute Assessment and Plan: -shaved with his electric razor that had not been cleaned in quite some time. -Bactroban ointment b.i.d. for 7 days. -D/C Keflex 500 mg PO BID x 5 days -Nasal MRSA positive and changed to Bactrim DS -Wound culture pending (5) Type 2 diabetes mellitus: Qualifiers: Diabetes mellitus lobsterman insulin use: without care home use Diabetes mellitus complication status: without complication Qualified Code(s): E11.9 - Type 2 diabetes mellitus without complications Code(s): E11.9 - Type 2 diabetes mellitus without complications Status: Acute Assessment and Plan: Patient is relatively euglycemic but is receiving steroid therapy due to COPD exacerbation. Will add moderate dose sliding scale insulin with Accu-Cheks a.c. HS and will continue home metformin. (6) KATIE (obstructive sleep apnea): Code(s): G47.33 - Obstructive sleep apnea (adult) (pediatric) Status: Acute Assessment and Plan: BiPAP as discussed above (7) COPD (chronic obstructive pulmonary disease): Qualifiers: COPD type: COPD with acute exacerbation Qualified Code(s): J44.1 - Chronic obstructive pulmonary disease with (acute) exacerbation Code(s): J44.9 - Chronic obstructive pulmonary disease, unspecified Status: Acute Assessment and Plan: Steroids and nebulizers as discussed above (8) Edema of abdominal wall: Code(s): R60.0 - Localized edema Status: Acute Assessment and Plan: Left ventricular systolic function is normal, estimated at 60-65%. Start Lasix 40 mg PO BID x 3 days. (9) Class 3 severe obesity with body mass index (BMI) of 60.0 to 69.9 in adult: Qualifiers: Obesity type: due to excess calories Serious obesity comorbidity presence: with serious comorbidity Qualified Code(s): E66.813 - Obesity, class 3; Z68.44 - Body mass index [BMI] 60.0-69.9, adult Code(s): E66.813 - Obesity, class 3; Z68.44 - Body mass index [BMI] 60.0-69.9, adult Status: Acute Assessment and Plan: Aggressive diet lifestyle modification recommended. Plan Patient has been admitted as observation status. Subjective Date/time seen: 07/24/24 10:46 Interval history: Switched to oral Lasix 40 b.i.d.. Possible discharge tomorrow. Patient will be discharged with quality assurance monitor body and needs to follow-up with cardiology. Review of Systems Review of Systems: 12 systems were reviewed with pertinent positives and negatives per HPI. Except as documented in the HPI, all other systems were reviewed and are negative. Exam Narrative: Weight 201.4 kg BMI 60.2 Objective Data Vital Signs Vital Signs: Vital Signs - 24 hr 07/23/24 11:18 07/23/24 11:35 07/23/24 12:00 Temperature 97.4 F L Pulse Rate 84 96 93 Respiratory Rate 20 20 12 Blood Pressure 136/95 H Pulse Oximetry 96 Oxygen Delivery Oxygen Flow Rate 07/23/24 12:00 07/23/24 12:38 07/23/24 14:00 Temperature Pulse Rate 102 H 103 H 89 Respiratory Rate 23 H Blood Pressure Pulse Oximetry 97 Oxygen Delivery Oxygen Flow Rate 05/10/25 16:00 07/23/24 16:00 07/23/24 16:09 Temperature 96.1 F L Pulse Rate 84 99 Respiratory Rate 21 H Blood Pressure 126/86 Pulse Oximetry 99 96 Oxygen Delivery Nasal Cannula Oxygen Flow Rate 2 07/23/24 16:10 07/23/24 16:27 07/23/24 19:11 Temperature 98.0 F Pulse Rate 87 90 93 Respiratory Rate 20 20 20 Blood Pressure 135/79 Pulse Oximetry 95 Oxygen Delivery Oxygen Flow Rate 07/23/24 20:00 07/23/24 21:50 07/23/24 22:00 Temperature Pulse Rate 113 H 90 95 Respiratory Rate 20 Blood Pressure Pulse Oximetry Oxygen Delivery Oxygen Flow Rate 07/23/24 22:03 07/23/24 22:38 07/24/24 00:00 Temperature Pulse Rate 90 Respiratory Rate 20 Blood Pressure Pulse Oximetry 96 90 Oxygen Delivery Nasal Cannula BiPAP Oxygen Flow Rate 2 07/24/24 00:00 07/24/24 00:00 07/24/24 02:00 Temperature 98.3 F Pulse Rate 92 83 87 Respiratory Rate 18 Blood Pressure 133/89 Pulse Oximetry 90 Oxygen Delivery Oxygen Flow Rate 07/24/24 03:53 07/24/24 04:00 07/24/24 04:00 Temperature 97.5 F L Pulse Rate 97 96 Respiratory Rate 20 Blood Pressure 100/64 Pulse Oximetry 96 96 Oxygen Delivery BiPAP Oxygen Flow Rate 07/24/24 06:00 07/24/24 07:27 07/24/24 07:27 Temperature Pulse Rate 96 93 Respiratory Rate 20 Blood Pressure Pulse Oximetry 94 Oxygen Delivery Nasal Cannula Oxygen Flow Rate 3 07/24/24 07:46 07/24/24 07:47 Temperature 97.8 F Pulse Rate 99 98 Respiratory Rate 20 24 H Blood Pressure 106/76 Pulse Oximetry 100 Oxygen Delivery Oxygen Flow Rate Intake/Output Intake/Output: Intake & Output 07/21/24 07/22/24 07/23/24 07/24/24 23:59 23:59 23:59 23:59 Intake Total 1180 1720 2030 490 Output Total 1150 2500 3200 3150 Balance 92 -620 -3616 -0538 Meds/Results Medications: Active Medications Generic Name Dose Route Start Last Admin Trade Name Freq PRN Reason Stop Dose Admin Acetaminophen 650 mg 07/20/24 21:59 Acetaminophen 325 Mg Tablet PO Q4H PRN Mild Pain (1-3) or Fever Amlodipine Besylate 10 mg 07/21/24 09:00 07/24/24 09:16 Amlodipine Besylate 10 Mg Tablet PO 10 mg DAILY EDMUNDO Administration Apixaban 5 mg 07/21/24 09:00 07/24/24 09:16 Apixaban 5 Mg Tablet PO 5 mg Q12HR EDMUNDO Administration Bacitracin 1 applic 07/21/24 09:00 07/24/24 09:18 Bacitracin Ointment 15 Gm Tube TOPICAL 1 applic Q12HR EDMUNDO Administration Dextrose 12.5 gm 07/21/24 01:58 Dextrose 50% 25 Gm/50 Ml Syringe IV PUSH PRN PRN Hypoglycemia Protocol Furosemide 40 mg 07/21/24 17:00 07/24/24 09:16 Furosemide Inj 40 Mg/4 Ml Vial IV PUSH 40 mg BID EDMUNDO Administration Glucagon 1 mg 07/21/24 01:58 Glucagon For Inj 1 Mg Vial IM PRN PRN Hypoglycemia Protocol Glucose 15 gm 07/21/24 01:58 Glucose Oral Gel 15 Gm Of Glucse In 37.5 Gm Tube PO PRN PRN Hypoglycemia Protocol Guaifenesin 1,200 mg 07/21/24 09:55 07/24/24 09:16 Guaifenesin 12 Hr 600 Mg Tabcr PO 1,200 mg Q12HR EDMUNDO Administration Dextrose 1,000 mls @ 100 mls/hr 07/21/24 01:58 Dextrose 5% 1,000 Ml IVPB PRN PRN Hypoglycemia Protocol Insulin Aspart 3 - 6 units 07/21/24 08:00 07/24/24 08:24 Insulin Aspart (*Bkc) 100 Units/Ml SUB-Q Not Given TIDWM [facility] Protocol Insulin Aspart 1 - 3 units 07/21/24 21:00 07/23/24 21:57 Insulin Aspart (*Bkc) 100 Units/Ml SUB-Q Not Given HS [facility] Protocol Ipratropium [place] 0.5 mg 07/21/24 12:00 07/24/24 07:26 Ipratropium Br 0.02% Inh Soln 0.5 Mg/2.5 Ml Vial INHALATION 0.5 mg Q4HRT EDMUNDO Administration Levalbuterol HCl 1.25 mg 07/21/24 12:00 07/24/24 07:27 Levalbuterol Neb 1.25 Mg/3 Ml INHALATION 1.25 mg Q4HRT EDMUNDO Administration Lisinopril 20 mg 07/21/24 09:00 07/24/24 09:16 Lisinopril 20 Mg Tablet PO 20 mg DAILY EDMUNDO Administration Metformin HCl 1,000 mg 07/21/24 08:00 07/24/24 09:15 Metformin Hcl 500 Mg Tablet PO 1,000 mg BIDWM EDMUNDO Administration Multivitamins/Minerals 1 tablet 07/21/24 09:00 07/24/24 09:16 Opti-Gen Tab PO 1 tablet DAILY EDMUNDO Administration Mupirocin 1 applic 07/22/24 09:00 07/24/24 09:18 Mupirocin 2% Oint 22 Gm Tube EACH NARE 07/26/24 21:01 1 applic Q12HR EDMUNDO Administration Ondansetron HCl 4 mg 07/20/24 21:59 Ondansetron Inj 4 Mg/2 Ml Vial IV PUSH Q4H PRN Nausea Prednisone 40 mg 07/24/24 08:00 07/24/24 09:15 Prednisone 20 Mg Tablet PO 07/29/24 07:59 40 mg DAILY@0800 EDMUNDO Administration Sertraline HCl 50 mg 07/21/24 09:00 07/24/24 09:16 Sertraline Hcl 50 Mg Tablet PO 50 mg DAILY EDMUNDO Administration Trimethoprim/Sulfamethoxazole 1 tab 07/22/24 21:00 07/24/24 09:16 Sulfamethoxazole/Trimethoprim 800/160 Mg Ds Tablet PO 1 tab Q12HR EDMUNDO Administration Radiology Results: ITS Impressions Chest X-Ray 07/20/24 18:24 IMPRESSION: No focal infiltrate or effusion. Venous Doppler Study 07/21/24 14:43 IMPRESSION: 1. No deep venous thrombosis in either lower limb. Chest CT 07/22/24 12:11 Impression: Mild bibasilar atelectasis or scarring, otherwise clear lungs. Labs Labs: Laboratory Results - last 24 hr 07/23/24 07/23/24 07/23/24 11:35 15:53 21:56 WBC RBC Hgb Hct MCV MCH MCHC RDW Plt Count MPV Sodium Potassium Chloride Carbon Dioxide Anion Gap BUN Creatinine Estim Creat Clear Calc Estimated GFR Glucose POC Capillary Glucose 232 H 190 H 143 H Calcium Total Bilirubin AST ALT Alkaline Phosphatase NT-Pro-B Natriuret Pep Total Protein Albumin 07/24/24 07/24/24 07/24/24 06:27 06:27 07:40 WBC 12.5 H RBC 5.28 Hgb 15.1 Hct 51.8 MCV 98.1 MCH 28.6 MCHC 29.2 L RDW 14.6 H Plt Count 223 MPV 8.9 Sodium 140 Potassium 4.0 Chloride 94 L Carbon Dioxide > 40 H Anion Gap BUN 39 H Creatinine 1.06 Estim Creat Clear Calc 110 Estimated GFR > 60 Glucose 125 H POC Capillary Glucose 133 H Calcium 8.8 Total Bilirubin 0.8 AST 63 H ALT 50 Alkaline Phosphatase 74 NT-Pro-B Natriuret Pep 1550 H Cancelled Total Protein 8.0 Albumin 3.9 Quality VTE Prophylaxis VTE prophylaxis: pharmacologic ordered (Start Eliquis.)
[2024-07-24 11:48] LABS: Glucose Point of Care 179 mg/dl (65-105)
--- NOTE | 2024-07-24 14:42 | P.DS_ITS ---
DS: Admitting Diagnosis Discharge Date 07/24/2024 Admitting Diagnosis Shortness of breath DS: Discharge Diagnosis Discharge Diagnosis (1) Acute on chronic respiratory failure with hypoxia and hypercapnia: Code(s): J96.21 - Acute and chronic respiratory failure with hypoxia; J96.22 - Acute and chronic respiratory failure with hypercapnia Status: Acute Assessment and Plan: -Likely combination of COPD exacerbation and underlying obesity hypoventilation syndrome. -BiPAP 02/20 with a rate of 22. - Xopenex and Atrovent. -S/P Decadron per EMS x1. -s/p IV Solu-Medrol q.6 hours. -prednisone 40 mg for 5 days -Advised Smoking cessation and Weight loss -CT scan shows mild bibasilar atelectasis or scaring otherwise clear lungs (2) Acute respiratory acidosis: Code(s): J96.02 - Acute respiratory failure with hypercapnia Status: Acute Assessment and Plan: Please see above (3) Atrial fibrillation with RVR: Code(s): I48.91 - Unspecified atrial fibrillation Status: Acute Assessment and Plan: -Rate improved control after 1 dose of Cardizem in the ER. - ECHO shows Left ventricular systolic function is normal, estimated at 60-65%. -Chads Vasc score 3. -Eliquis 5 mg p.o. b.i.d.. -upon discharge with even monitor and advised to follow-up with cardiology as an outpatient (4) Impetigo: Code(s): L01.00 - Impetigo, unspecified Status: Acute Assessment and Plan: -shaved with his electric razor that had not been cleaned in quite some time. -Bactroban ointment b.i.d. for 7 days. 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 Will add moderate dose sliding scale insulin with Accu-Cheks a.c. HS and will continue home metformin. (6) KATIE (obstructive sleep apnea): Code(s): G47.33 - Obstructive sleep apnea (adult) (pediatric) Status: Acute Assessment and Plan: BiPAP as discussed above (7) COPD (chronic obstructive pulmonary disease): Qualifiers: COPD type: COPD with acute exacerbation Qualified Code(s): J44.1 - Chronic obstructive pulmonary disease with (acute) exacerbation Code(s): J44.9 - Chronic obstructive pulmonary disease, unspecified Status: Acute Assessment and Plan: Steroids and nebulizers as discussed above (8) Edema of abdominal wall: Code(s): R60.0 - Localized edema Status: Acute Assessment and Plan: Left ventricular systolic function is normal, estimated at 60-65%. Start Lasix 40 mg PO BID x 3 days. (9) Class 3 severe obesity with body mass index (BMI) of 60.0 to 69.9 in adult: Qualifiers: Obesity type: due to excess calories Serious obesity comorbidity presence: with serious comorbidity Qualified Code(s): E66.813 - Obesity, class 3; Z68.44 - Body mass index [BMI] 60.0-69.9, adult Code(s): E66.813 - Obesity, class 3; Z68.44 - Body mass index [BMI] 60.0-69.9, adult Status: Acute Assessment and Plan: Aggressive diet lifestyle modification recommended. DS: Summary Hospital Course Hospital Course: 64-year-old male with a past medical history of class 3 obesity with BMI greater than 60, obstructive sleep apnea on home BiPAP, chronic hypoxic respiratory failure on home O2 2 L, type 2 diabetes mellitus, essential hypertension and depression who presented to the ER from home via EMS due to increased shortness of breath. The patient reports that he has been essentially bed-bound for the last 8 months due to his obesity. He wears 2 L home O2 when awake and wears his BiPAP with bleed in O2 with sleep. On EMS arrival to patient's home is satting 82% on his home O2 of 2 L. He was increased up to 6 L and given a DuoNeb and Solu-Medrol in route with improvement in oxygen saturations to 95%. The patient denies any cough. He is still continued to smoke 4 cigarettes a day for the last 6 months prior to that he was smoking 1 pack of cigarettes per day since he was a teenager. He reported some chest congestion to the ER staff and had tried some Mucinex at home without relief in symptoms. He does have nebulizers at home but was not receiving much relief from nebulizers at home. He did report improvement in breathing after Solu-Medrol and hour long nebulizer in the ER. He reports that he has been trying to watch is diet and has lost 52 lb in the last couple of months due to dietary changes. Despite having weight loss he has noted increased abdominal wall firmness and protrusion of his stretch mauro. He has noticed increased leg swelling as well as scrotal swelling. He denies known history of CHF. On arrival to the ER it was noted he was in AFib with rapid ventricular response. He denies any known history of AFib. He denies sensation of palpitations. He received 1 dose of IV Cardizem in the ER with improvement in his heart rate down to the 90s from 120s. He denies any increased orthopnea or paroxysmal nocturnal dyspnea. He feels like his BiPAP is not been working as well as usual. He does not think that he has been urinating as much as usual. He denies any weak urine stream or sensation of incomplete bladder emptying. He has been having normal bowel movements. He denies recent ill contacts, fevers or chills. He does have a rash noted to his face which he states started the day after he shaved with his electric shaver. He admits that he had clean is electric shaver in a long time. After he had developed a rash a day or so later he developed some serous drainage that dried into the yellow flaky itchy rash. He reports that the itching has improved but the rash remains. He reports that he has diabetes and is been checking his sugars 3 to 4 times a day. He states that his glucoses have been ranging between the 90s to 140 range. In regards to COPD exacerbation patient was evaluated by outside maintenance worker. Advised to discharged with following recommendation: Prednisone 40 mg p.o. q.day Beta agonist and muscarinic antagonist that insurance will cover (Anoro Ellipta 62.5/25 at 1 puff Q day, stiolto respimat 2.5/2.5 at 1 puff BID, bevespi aerosphere 9 mcg/4.8 at 2 puffs BID, combivent respimat at 2 puffs Q 4 HR or separate albuterol and atrovent inhalers at 2 puffs Q 4 HR) Rescue levalbuterol 2 puffs q.4 hours p.r.n. shortness of breath or wheezing Rescue levalbuterol nebulizer 1.25 mcg q.4 hours p.r.n. shortness of breath or wheezing Oxygen at rest and with activity per formal home O2 assessment on the day of d ischarge When he naps or sleeps: through DME IV respiratory care: noninvasive ventilation with the IVAPS-AE mode: rate of 20, tidal volume 550, minimum EPAP 5, maximum EPAP 20, minimum pressure support 6, maximum pressure support 25 and 3 L bleed in which will be guided by overnight oximetry on 07/22/24. Discussed with outside maintenance worker who agrees to discharge the patient with prednisone 40 mg for 5 days and patient should be on maintenance inhaler and to follow-up at his clinic and call for an appointment [phone]. In regards to folliculitis advised use only new razor and avoid old razor. Will be discharged with Bactroban and Bactrim DS In regards to new onset of atrial fibrillation patient is already started on apixaban 5 mg p.o. b.i.d.. Patient will be discharged with event monitor unfortunately cardiology office is closed today patient needs to come back tomorrow and pickup his monitor and follow-up with the Cardiology. Patient requested to be discharged today since he has a ride rather staying another night in the hospital for event monitor. Offered patient to stay night but he declined Status at Discharge Cognitive/behavioral status at discharge: Stable Time Spent with Patient Time attestation: Total time spent providing and/or coordinating discharge services: 45 minutes Exam Narrative: Weight 201.4 kg BMI 60.2 DS: Data Data Completed and Pending Labs on day of discharge: Labs from last 24 hours 07/24/24 07/24/24 07/24/24 11:44 07:40 06:27 WBC RBC Hgb Hct MCV MCH MCHC RDW Plt Count MPV Puncture Site ABG pH ABG pCO2 ABG pO2 ABG PO2/FiO2 Ratio ABG HCO3 ABG O2 Saturation ABG O2 Content ABG Base Excess A-a Gradient Oxyhemoglobin Carboxyhemoglobin Methemoglobin Reduced Hemoglobin Total Hemoglobin O2 Delivery Device O2 Liters/Min Sodium Potassium Chloride Carbon Dioxide Anion Gap BUN Creatinine Estim Creat Clear Calc Estimated GFR Glucose POC Capillary Glucose 179 H 133 H Calcium Total Bilirubin AST ALT Alkaline Phosphatase NT-Pro-B Natriuret Pep Cancelled Total Protein 8.0 Albumin 3.9 07/24/24 07/24/24 07/23/24 06:27 05:04 21:56 WBC 12.5 H RBC 5.28 Hgb 15.1 Hct 51.8 MCV 98.1 MCH 28.6 MCHC 29.2 L RDW 14.6 H Plt Count 223 MPV 8.9 Puncture Site Pending ABG pH Pending ABG pCO2 Pending ABG pO2 Pending ABG PO2/FiO2 Ratio Pending ABG HCO3 Pending ABG O2 Saturation Pending ABG O2 Content Pending ABG Base Excess Pending A-a Gradient Pending Oxyhemoglobin Pending Carboxyhemoglobin Pending Methemoglobin Pending Reduced Hemoglobin Pending Total Hemoglobin Pending O2 Delivery Device Pending O2 Liters/Min Pending Sodium 140 Potassium 4.0 Chloride 94 L Carbon Dioxide > 40 H Anion Gap BUN 39 H Creatinine 1.06 Estim Creat Clear Calc 110 Estimated GFR > 60 Glucose 125 H POC Capillary Glucose 143 H Calcium 8.8 Total Bilirubin 0.8 AST 63 H ALT 50 Alkaline Phosphatase 74 NT-Pro-B Natriuret Pep 1550 H Total Protein Albumin 07/23/24 15:53 WBC RBC Hgb Hct MCV MCH MCHC RDW Plt Count MPV Puncture Site ABG pH ABG pCO2 ABG pO2 ABG PO2/FiO2 Ratio ABG HCO3 ABG O2 Saturation ABG O2 Content ABG Base Excess A-a Gradient Oxyhemoglobin Carboxyhemoglobin Methemoglobin Reduced Hemoglobin Total Hemoglobin O2 Delivery Device O2 Liters/Min Sodium Potassium Chloride Carbon Dioxide Anion Gap BUN Creatinine Estim Creat Clear Calc Estimated GFR Glucose POC Capillary Glucose 190 H Calcium Total Bilirubin AST ALT Alkaline Phosphatase NT-Pro-B Natriuret Pep Total Protein Albumin Imaging Radiologist's impression: ITS Impressions Chest X-Ray 07/20/24 18:24 IMPRESSION: No focal infiltrate or effusion. Venous Doppler Study 07/21/24 14:43 IMPRESSION: 1. No deep venous thrombosis in either lower limb. Chest CT 07/22/24 12:11 Impression: Mild bibasilar atelectasis or scarring, otherwise clear lungs. Discharge Plan Discharge Attending physician on discharge: Cruzito Renee Consulting providers: Mello Murray Discharging Clinician: Cruzito Renee Anticipated Discharge Date/Time: 07/24/24 15:03 Patient Disposition: Home Activity: as tolerated Diet: heart healthy Discharge Instructions: Patient needs to come back tomorrow and get event monitor Event monitor from cardiology office and follow-up with them in regards to AFib. Please follow-up with Cardiology with the results of BMP. Patient started on Lasix 40 mg p.o. b.i.d.. Patient needs to follow closely with pulmonology and needs to call tomorrow office at [phone] and make an appointment within in 4 weeks. When patient naps or sleeps: through DME IV respiratory care: noninvasive ventilation with the IVAPS-AE mode: rate of 20, tidal volume 550, minimum EPAP 5, maximum EPAP 20, minimum pressure support 6, maximum pressure support 25 and 3 L bleed in. Please do not use old razor Please complete the oral antibiotic course and topical antibiotic as instructed Check blood pressure 1 to 2 times a day. Record and bring into your doctor for review. Call your doctor if your blood pressure is greater than 180/110 or less than 90/45. Walk with cane or other assist device. Take precautions to avoid falls. Rise slowly from a lying or sitting position. Pause before standing or walking. Contact your doctor or call 911 and come to the Emergency Room if you have any type of trauma, lightheadedness with standing or other worrisome symptoms. Avoid NSAIDs (ibuprofen, naproxen, Aleve). Tylenol is safe to take. Follow-up with your primary care provider in 1-2 weeks. Please call for appointment. Follow-up with Cardiology,Pulmonology in 2-4 weeks. Please call for an appointment. Thank you for using [facility] for your health care needs. Patient Instructions: Antibiotic Form Patient Language: Spanish Stand Alone Forms: General Discharge Information Follow-up/Referrals: Valeriy,Manish Richardson MD [Primary Care Provider] - Mello Murray MD [Physician] - (Please call tomorrow at [phone] and make an appointment) Discharge Medications: New Eliquis 5 mg Tablet 5 mg PO Q12HR Qty: 30 0RF levalbuterol HCl 1.25 mg/3 mL Solution For Nebulization 1.25 mg inhalation Q4HRT PRN (Reason: shortness of breath or wheezing) Qty: 30 0RF mupirocin 2 % Ointment 1 applic EACH NARE Q12HR Qty: 30 0RF sulfamethoxazole-trimethoprim 800-160 mg Tablet 1 tablet PO Q12HR Qty: 10 0RF Rx Instructions: Please complete the course for 5 days prednisone 20 mg Tablet 40 mg PO DAILY@0800 Qty: 10 0RF Rx Instructions: Please take for 5 days furosemide 40 mg Tablet 40 mg PO BID Qty: 30 0RF umeclidinium-vilanterol [Anoro Ellipta] 62.5-25 mcg/actuation blister with device 1 inh inhalation DAILY Qty: 60 0RF bacitracin 500 unit/gram Ointment 1 applic topical Q12HR Qty: 30 0RF Rx Instructions: administered for five days twice per month for six months guaifenesin [Mucus Relief ER] 600 mg Tablet Extended Release 12hr 1,200 mg PO Q12HR Qty: 30 0RF Continued Centrum Silver Men 300-600-300 mcg tablet 1 tablet PO DAILY amlodipine 10 mg tablet 10 mg PO DAILY Qty: 90 3RF metformin 1,000 mg tablet 1,000 mg PO BID sertraline 50 mg tablet 50 mg PO DAILY Qty: 90 3RF lisinopril 40 mg tablet See Rx Instructions .ROUTE .COMPLEX Qty: 30 0RF Dose Instruction: TAKE 1 TABLET BY MOUTH DAILY Rx Instructions: TAKE 1 TABLET BY MOUTH DAILY Discontinued albuterol sulfate [ProAir HFA] 90 mcg/actuation HFA aerosol inhaler 2 puff INHALATION Q4-6H PRN (Reason: shortness of breath or wheezing) Qty: 6.7 2RF Rx Instructions: LAST REFILL UNTIL SEEN Other Ambulatory Orders: Basic Metabolic Panel (Routine) Timeframe: 1 Week Location: Determined by Patient Ordered By: Cruzito LAZAR cardiac event monitor (Routine) Timeframe: 1 Week Location: Determined by Patient Ordered By: Cruzito Renee Date of admission: 07/21/24 08:39 Primary Care Provider: Valeriy,Manish Richardson Admitting Provider: Ny Jones Attending physician on admission: Ny Jones Condition: Stable
[2024-07-26 09:20] LABS: Device OTHER DEVICE
[2024-07-26 16:49] LABS: Adenovirus DNA Not Detected (Not Detected); Chlamydophila pneumoniae Not Detected (Not Detected); Coronavirus 229E Not Detected (Not Detected); Coronavirus HKU1 Not Detected (Not Detected); Coronavirus NL63 Not Detected (Not Detected); Coronavirus OC43 Not Detected (Not Detected); Human Metapneumovirus Not Detected (Not Detected); Human Parainfluenza Virus 1 Not Detected (Not Detected); Human Parainfluenza Virus 2 Not Detected (Not Detected); Human Parainfluenza Virus 3 Not Detected (Not Detected); Human Parainfluenza Virus 4 Not Detected (Not Detected); Human RSV B Not Detected (Not Detected); Influenza A Not Detected (Not Detected); Influenza B Not Detected (Not Detected); Mycoplasma pneumoniae Not Detected (Not Detected); Rhinovirus/Enterovirus Not Detected (Not Detected)
== END 2024-07-24 17:00 | disposition home or self-care (01) | DRG 190 ==
LOC: ANHED 22:43 → ANHIMU 22:46
PROVIDERS: Internal Medicine Pulmonary Disease; Admitting Provider Internal Medicine; Emergency Provider Emergency Medicine; PCP Internal Medicine; Visit Provider General Practice
DX: J44.1 Chronic obstructive pulmonary disease with (acute) exacerbation (principal); J96.21 Acute and chronic respiratory failure with hypoxia; J96.22 Acute and chronic respiratory failure with hypercapnia; Z68.44 Body mass index [BMI] 60.0-69.9, adult; I50.810 Right heart failure, unspecified; I11.0 Hypertensive heart disease with heart failure; I48.91 Unspecified atrial fibrillation; E66.813 Obesity, class 3; E11.9 Type 2 diabetes mellitus without complications; E78.5 Hyperlipidemia, unspecified; F17.210 Nicotine dependence, cigarettes, uncomplicated; F32.A Depression, unspecified; G47.33 Obstructive sleep apnea (adult) (pediatric); L01.00 Impetigo, unspecified; Z74.01 Bed confinement status; Z99.89 Dependence on other enabling machines and devices; Z99.81 Dependence on supplemental oxygen; Z20.822 Contact with and (suspected) exposure to COVID-19
CPT/HCPCS: 36415; 36600; 71045; 71250; 80048; 80053; 82375; 82805; 82948; 83036; 83050; 83880; 84484; 85018; 85025; 85027; 87633; 87637; 87641; 93005; 93306; 93351; 93970; 94002; 94003; 94618; 94640; 94762; 96374; 96375; 97161; 97166; 97530; 99285; A9270; C8929; C8930; G0378; J1815; J1938; J2919; J7512

== ENCOUNTER 2024-11-26 03:26 | Inpatient (IN) | payer MEDICARE, SELFPAY ==
[2024-11-26] VITALS (44 sets, daily range): BP systolic 84–162; BP diastolic 69–137; PULSE 78–119; RESP 13–27; TEMP 35.8–36.5; O2SAT 90–100; BMI 64.6
--- NOTE | ~2024-11-26 | XR_ITS ---
Examination: XR chest 1V portable Clinical History: Pneumonia, respiratory failure Comparison: 1 day prior Technique: Portable AP Findings: ET tube, NG tube, right neck central line. Cardiomegaly. Large left effusion with complete lower lobe atelectasis persists. Persistent increased interstitial markings. No acute bony abnormality. IMPRESSION: 1. No significant change. 2. Persistent complete left lower lobe atelectasis, with associated effusion. 3. Persistent interstitial pulmonary edema and/or pneumonitis. Reviewed, dictated and finalized at location R.
--- NOTE | ~2024-11-26 | XR_ITS ---
EXAMINATION: XR abdomen obstructive series, 12/07/2024 10:37 CDT HISTORY: rule out ileus or SBO COMPARISON: No comparisons available. Technique: 3 view. Findings: There are air-filled dilated loops of large bowel the largest measuring 8 cm. There are no dilated small bowel loops.There is moderate fecal content. No free air. No abnormal calcifications No acute osseous abnormality. Nasogastric tube terminates in the stomach. Impression: 1. Ileus versus early large bowel obstruction. Follow-up recommended to assess resolution Reviewed, dictated and finalized at location A. Impression: 1. Ileus versus early large bowel obstruction. Follow-up recommended to assess resolution
--- NOTE | ~2024-11-26 | XR_ITS ---
EXAMINATION: XR chest 1V portable COMPARISON: No comparisons available. HISTORY: RESPIRATORY FAILURE FINDINGS: Moderate pulmonary venous congestion. Bilateral infiltrates. No pneumothorax. Moderate cardiomegaly. Mediastinal and hilar contours are within normal limits. Bony thorax no acute abnormality. Miscellaneous: Right PICC line terminates in the SVC. ET tube 3 cm above the evelyn. Nasogastric tube in the stomach. Impression: CHF. Superimposed pneumonia is suspected. The findings are progressed slightly compared to the previous study Reviewed, dictated and finalized at location A. Impression: CHF. Superimposed pneumonia is suspected. The findings are progressed slightly compared to the previous study
--- NOTE | ~2024-11-26 | XR_ITS ---
EXAMINATION: XR chest 1V portable DATE: 12/02/2024 05:22 INDICATION: Respiratory failure requiring intubation TECHNIQUE: frontal view of the chest was obtained. COMPARISON: Chest radiograph dated 12/01/24 FINDINGS: Endotracheal tube tip 6.4 cm above the evelyn. Nasogastric tube extends below the left hemidiaphragm with distal tip collimated off the study. Right internal jugular central venous catheter with distal tip at the caudal superior vena cava. Hazy airspace opacities in the bilateral mid and lower lung zones with linear discoid atelectasis/scarring in the right midlung zone and more dense retrocardiac consolidation in the medial left lower lung zone. No pneumothorax. Heart size is normal. IMPRESSION: 1. Decreasing hazy opacities in bilateral lower lung zones likely related to small posteriorly layering pleural effusions. 2. Persistent dense retrocardiac consolidation in the left lower lung zone which could represent atelectasis or pneumonia. Reviewed, dictated and finalized at location A. IMPRESSION: 1. Decreasing hazy opacities in bilateral lower lung zones likely related to sm all posteriorly layering pleural effusions. 2. Persistent dense retrocardiac consolidation in the left lower lung zone whic h could represent atelectasis or pneumonia.
--- NOTE | ~2024-11-26 | XR_ITS ---
EXAMINATION: XR chest 1V portable DATE: 11/29/2024 05:44 INDICATION: Respiratory failure requiring intubation TECHNIQUE: frontal view of the chest was obtained. COMPARISON: Chest radiograph dated 11/28/2024 FINDINGS: Endotracheal tube tip 4.4 cm above the evelyn. Right internal jugular central venous catheter with distal tip in the mid superior vena cava. Nasogastric tube extends below the left hemidiaphragm with distal tip collimated off the study. Persistent significant opacification of the left hemithorax particularly in the mid and lower lung zones. There is pulmonary vascular congestion. Mild increased interstitial pattern in the right perihilar region and right lower lung zone. No pneumothorax. Cardiac silhouette is obscured by the left-sided lung disease but is not enlarged. There may be persistent mild leftward shift of the heart and mediastinum suggesting volume loss in left hemithorax although assessment is limited by some leftward rotation of the patient. IMPRESSION: 1. Lines and tubes in expected positions. 2. Persistent opacities throughout much of the left hemithorax which could represent atelectasis, pleural effusion, pneumonia or some combination thereof. 2. All major vascular with increased initial pattern in the right perihilar and lower lung zones which could represent mild pulmonary edema or pneumonia. Reviewed, dictated and finalized at location A. IMPRESSION: 1. Lines and tubes in expected positions. 2. Persistent opacities throughout much of the left hemithorax which could repr esent atelectasis, pleural effusion, pneumonia or some combination thereof. 2. All major vascular with increased initial pattern in the right perihilar and lower lung zones which could represent mild pulmonary edema or pneumonia.
--- NOTE | ~2024-11-26 | XR_ITS ---
EXAM/PROCEDURE: XR chest 1V portable - 11/29/2024 14:48 CDT HISTORY: 64 years old Male with post bronchonscopy TECHNIQUE: Two view(s) of the chest. COMPARISON: 11/29/2024 FINDINGS: LUNGS/ PLEURA: Right middle lobe consolidation. Left pleural effusion causing compressive atelectasis. Superimposed infection cannot be excluded. No pneumothorax. HEART/ MEDIASTINUM: Moderate cardiomegaly. BONES: Degenerative changes. OTHER: Visualized upper abdomen is unremarkable. Tip of the endotracheal tube is 5.2 cm above evelyn. Tip of the central line is in the proximal right atrium. Tip of the enteric tube projects beyond the [id number] IMPRESSION: Right middle lobe consolidation. Left pleural effusion causing compressive atelectasis. Superimposed infection cannot be excluded. Reviewed, dictated and finalized at location N. IMPRESSION: Right middle lobe consolidation. Left pleural effusion causing compressive atel ectasis. Superimposed infection cannot be excluded.
--- NOTE | ~2024-11-26 | XR_ITS ---
EXAMINATION: XR chest 1V portable COMPARISON: No comparisons available. HISTORY: hypoxia, sob FINDINGS: Moderate pulmonary venous congestion. Small left basilar infiltrate and effusion. No pneumothorax. Severe cardiomegaly. Mediastinal and hilar contours are within normal limits. Bony thorax no acute abnormality. Miscellaneous: None Impression: CHF Reviewed, dictated and finalized at location A. Impression: CHF
--- NOTE | ~2024-11-26 | XR_ITS ---
EXAMINATION: XR chest 1V portable COMPARISON: No comparisons available. HISTORY: Pneumonia, respiratory failure FINDINGS: Small basilar infiltrates with small effusion. No pneumothorax. Moderate cardiomegaly. Mild cardiomegaly. Mediastinal and hilar contours are within normal limits. Bony thorax no acute abnormality. Miscellaneous: ETT 3 cm above the evelyn, right central line in the SVC. Impression: CHF. Superimposed pneumonia suspected Reviewed, dictated and finalized at location P. Impression: CHF. Superimposed pneumonia suspected
--- NOTE | ~2024-11-26 | XR_ITS ---
Examination: XR chest 1V portable Clinical History: Respiratory failure requiring intubation Comparison: 1 day prior Technique: Portable AP Findings: ET tube, NG tube, right neck central line. Cardiomegaly. Worsening airspace disease right lung. Persistent left effusion with associated basilar atelectasis and/or airspace disease. No pneumothorax. No acute bony abnormality. IMPRESSION: 1. Worsening right lung airspace disease. Small associated effusion not excluded. 2. Persistent large left pleural effusion with associated basilar atelectasis and/or airspace disease. Reviewed, dictated and finalized at location R. IMPRESSION: 1. Worsening right lung airspace disease. Small associated effusion not exclud ed. 2. Persistent large left pleural effusion with associated basilar atelectasis and/or airspace disease.
--- NOTE | ~2024-11-26 | XR_ITS ---
Abdominal radiograph(s) INDICATION: NG tube COMPARISON: X-rays earlier same day TECHNIQUE: Portable AP supine, majority of film chest FINDINGS/IMPRESSION: 1. NG tube sidehole at GE junction, recommend further advancement. 2. Persistent left lower lobe atelectasis and/or airspace disease with probable effusion 3. Less severe right basilar airspace disease. Reviewed, dictated and finalized at location R.
--- NOTE | ~2024-11-26 | XR_ITS ---
EXAMINATION: XR abdomen obstructive series DATE: 12/08/2024 09:53 INDICATION: Ileus versus small bowel obstruction. TECHNIQUE: Frontal supine and upright views of the abdomen were obtained. COMPARISON: None. FINDINGS: Orogastric tube with distal tip at the distal esophagus relatively near the level of the gastroesophageal junction. Persistent gaseous distention of portions of the colon. There are few gas-filled but not frankly dilated loops of gas-filled small bowel in the left abdomen. No free intraperitoneal gas. Persistent consolidation in the left mid to lower lung zone. Visualized right lung is clear. Heart size is normal. IMPRESSION: 1. Orogastric tube tip in the distal esophagus. Recommend advancement by [address] the proximal side-port below level of the gastroesophageal junction. 2. No free intraperitoneal gas or dilated gas-filled loops of bowel to suggest obstruction. 3. Persistent opacities in the left mid to lower lung zone which could represent atelectasis, pneumonia, small left pleural effusion or some combination thereof. Reviewed, dictated and finalized at location A. IMPRESSION: 1. Orogastric tube tip in the distal esophagus. Recommend advancement by [address] the proximal side-port below level of the gastroesophageal junction. 2. No free intraperitoneal gas or dilated gas-filled loops of bowel to suggest obstruction. 3. Persistent opacities in the left mid to lower lung zone which could represen t atelectasis, pneumonia, small left pleural effusion or some combination there of.
--- NOTE | ~2024-11-26 | XR_ITS ---
Examination: XR chest 1V portable Clinical History: Intubated and mechanically ventilated Comparison: 1 day prior Technique: Portable AP Findings: Patient poorly positioned. ET tube, NG tube, right neck central line. Cardiomegaly. Large left pleural effusion and large associated atelectasis. Diffusely increased interstitial markings right lung. No acute bony abnormality. IMPRESSION: 1. Volume loss left lung with lower lobe atelectasis, possible superimposed airspace disease and/or large effusion. 2. Persistent interstitial edema and/or airspace disease right lung. Reviewed, dictated and finalized at location R. IMPRESSION: 1. Volume loss left lung with lower lobe atelectasis, possible superimposed ai rspace disease and/or large effusion. 2. Persistent interstitial edema and/or airspace disease right lung.
--- NOTE | ~2024-11-26 | XR_ITS ---
Examination: XR chest 1V portable Clinical History: Respiratory failure requiring intubation Comparison: 1 day prior Technique: Portable AP Findings: ET tube, NG tube, right neck central line. Cardiomegaly. Persistent complete collapse left lower lobe. Worsening diffuse interstitial markings right lung. No pneumothorax. No acute bony abnormality. IMPRESSION: 1. Persistent complete collapse left lower lobe, likely aspiration or mucous plug. Bronchoscopy likely of value. 2. Worsening interstitial pulmonary edema and/or airspace disease right lung. Reviewed, dictated and finalized at location R. IMPRESSION: 1. Persistent complete collapse left lower lobe, likely aspiration or mucous p lug. Bronchoscopy likely of value. 2. Worsening interstitial pulmonary edema and/or airspace disease right lung.
--- NOTE | ~2024-11-26 | XR_ITS ---
EXAMINATION: XR chest port-a-cath/central DATE: 11/28/2024 11:49 INDICATION: Central line placement TECHNIQUE: frontal view of the chest was obtained. COMPARISON: Chest radiograph dated 11/28/2024 FINDINGS: Removal of a prior left upper extremity PICC line. Placement of a new right internal jugular central venous catheter with distal tip in the midsuperior vena cava. Endotracheal tube tip 2.6 cm above the evelyn. Nasogastric tube extends below the left hemidiaphragm with distal tip collimated off the study. Persistent volume loss in the left hemithorax with dense opacities in the mid and lower lung zone with severe opacities in the left upper lung zone. Cardiac silhouette is obscured but does not appear enlarged. Right lung is clear. No pneumothorax, pulmonary edema or right pleural effusion. IMPRESSION: 1. Lines and tubes in expected positions. 2. Persistent volume loss in the left hemithorax with diffuse airspace opacity left lung most prominent in the mid and lower lung zones which could represent atelectasis, pleural effusion, pneumonia or some combination thereof. Reviewed, dictated and finalized at location A.
--- NOTE | ~2024-11-26 | XR_ITS ---
EXAMINATION: XR chest PICC line, XR abdomen gastric tube insert DATE: 11/28/2024 08:45 INDICATION: PICC line placement. Orogastric tube placement.. TECHNIQUE: frontal view of the chest was obtained. COMPARISON: Chest radiograph dated 11/28/24 at 5:44 AM FINDINGS: Endotracheal tube tip 4 cm above the evelyn. Nasogastric tube tip in proximal side port in the body the stomach. There is a catheter potentially a left upper extremity peripherally inserted central venous catheter (PICC) which forms a loop near its distal tip both which project over the left axillary region. Persistent volume loss in the left hemithorax with extensive airspace opacities throughout the left lung relatively sparing the apex. Right lung remains clear. No pneumothorax or right-sided pleural effusion. Cardiac silhouette is obscured but is not enlarged. IMPRESSION: 1. Orogastric tube in stomach. Possible left upper extremity peripherally inserted central venous catheter with small loop in the catheter near the distal tip of which project over the left axilla. 2. Persistent prominent airspace opacities and associated volume loss in left hemithorax consistent with significant amount of atelectasis. Superimposed pneumonia or pleural effusion not excludable. Reviewed, dictated and finalized at location A. IMPRESSION: 1. Orogastric tube in stomach. Possible left upper extremity peripherally inser kandy central venous catheter with small loop in the catheter near the distal tip of which project over the left axilla. 2. Persistent prominent airspace opacities and associated volume loss in left h emithorax consistent with significant amount of atelectasis. Superimposed pneum onia or pleural effusion not excludable.
--- NOTE | ~2024-11-26 | XR_ITS ---
Examination: XR chest 1V portable Clinical History: Resp Failure Comparison: 1 day prior Technique: Portable AP Findings: ET tube, NG tube, right neck central line. Cardiomegaly. Persistent bibasilar airspace disease, left side worse. Probable effusions. No acute bony abnormality. IMPRESSION: 1. Complete left lower lobe atelectasis with associated airspace disease. Consider aspiration or mucous plug. 2. Persistent bibasilar atelectasis and/or airspace disease. 3. Probable effusions. Reviewed, dictated and finalized at location R. IMPRESSION: 1. Complete left lower lobe atelectasis with associated airspace disease. Cons ider aspiration or mucous plug. 2. Persistent bibasilar atelectasis and/or airspace disease. 3. Probable effusions.
--- NOTE | ~2024-11-26 | XR_ITS ---
Abdominal radiograph(s) INDICATION: G-tube COMPARISON: 2 days prior TECHNIQUE: Portable AP supine abdomen FINDINGS/IMPRESSION: 1. Only left hemiabdomen included on film. 2. NG tube tip within gastric body. 3. Scattered enteric gas. Reviewed, dictated and finalized at location R.
--- NOTE | ~2024-11-26 | XR_ITS ---
EXAMINATION: XR chest 1V portable DATE: 12/05/2024 05:39 INDICATION: Respiratory failure TECHNIQUE: frontal view of the chest was obtained. COMPARISON: Chest radiograph dated 12/03/24 FINDINGS: Endotracheal tube tip 2.9 cm above the evelyn. Nasogastric tube extends below the left hemidiaphragm with distal tip collimated off the study. Right internal jugular central venous catheter with distal tip at the midsuperior vena cava. Again seen the gradient of basilar predominant hazy opacities in bilateral mid and lower lung zones consistent with posterior layering small bilateral pleural effusions. More dense airspace opacities in the left lower lung zone which could represent associated atelectasis and/or pneumonia. Heart size within normal limits for AP technique. IMPRESSION: 1. Unchanged small bilateral posterior layering pleural effusions with more dense atelectasis or pneumonia in the left lower lung zone. Reviewed, dictated and finalized at location A. IMPRESSION: 1. Unchanged small bilateral posterior layering pleural effusions with more den se atelectasis or pneumonia in the left lower lung zone.
--- NOTE | ~2024-11-26 | XR_ITS ---
EXAMINATION: XR chest ET placement, XR abdomen gastric tube insert DATE: 11/28/2024 06:05 INDICATION: Intubation and orogastric tube placement TECHNIQUE: 1. AP view of the chest was obtained. 2. AP view of the abdomen was obtained. COMPARISON: Chest radiograph dated 11/26/24 FINDINGS: Endotracheal tube tip 1.7 cm above the evelyn. The orogastric tube extends into the stomach. Volume loss in the left hemithorax with elevation of left hemidiaphragm and leftward shift of the normal sized heart. Opacities throughout the left lung consistent with associated atelectasis and cannot exclude superimposed pneumonia or pleural effusion. Right lung remains clear with no airspace opacities, pulmonary edema or pleural effusion. No pneumothorax. IMPRESSION: 1. Endotracheal and orogastric tubes in expected position. 2. Prominent opacities throughout the left lung relatively sparing the apex with significant associated volume loss left hemithorax consistent with significant atelectasis. Superimposed pneumonia or pleural effusion is not excludable. Reviewed, dictated and finalized at location A. IMPRESSION: 1. Endotracheal and orogastric tubes in expected position. 2. Prominent opacities throughout the left lung relatively sparing the apex wit h significant associated volume loss left hemithorax consistent with significan t atelectasis. Superimposed pneumonia or pleural effusion is not excludable.
--- NOTE | ~2024-11-26 | US_ITS ---
EXAMINATION:US venous doppler LE BI INDICATION:Fevers TECHNIQUE: Multiple grayscale, color flow and Doppler images of the right and left lower extremity deep venous systems were obtained and reviewed. COMPARISON:No prior studies for comparison. FINDINGS: The common femoral, superficial femoral and popliteal veins demonstrate normal respiratory variation, augmentation and compressibility. Color flow is also seen within the posterior tibial, peroneal, greater saphenous and profunda veins. IMPRESSION: 1: No lower extremity deep venous thrombosis. Reviewed, dictated and finalized at location O.
--- NOTE | ~2024-11-26 | XR_ITS ---
Examination: XR abdomen gastric tube insert Clinical History: New NG tube placement Comparison: Chest x-ray same day Technique: Portable AP Findings/impression: 1. NG tube tip remains nonvisualized given underpenetration along GE junction. 2. Consider additional views centered on GE junction or abdomen. Reviewed, dictated and finalized at location R.
--- NOTE | ~2024-11-26 | XR_ITS ---
Examination: XR chest 1V portable Clinical History: Respiratory failure requiring intubation Comparison: 1 day prior Technique: Portable AP Findings: ET tube, NG tube, right neck central line. Cardiomegaly. Large left pleural effusion with associated basilar opacity. Scattered airspace disease right base. No acute bony abnormality. IMPRESSION: 1. No significant change. 2. Large left pleural effusion with associated basilar atelectasis and/or airspace disease. 3. Right basilar airspace disease. Reviewed, dictated and finalized at location R. IMPRESSION: 1. No significant change. 2. Large left pleural effusion with associated basilar atelectasis and/or airs pace disease. 3. Right basilar airspace disease.
--- NOTE | ~2024-11-26 | XR_ITS ---
EXAM/PROCEDURE: XR abdomen gastric tube rechec - 11/29/2024 5:25 CDT HISTORY: 64 years old Male with OG advancement COMPARISON: None available. TECHNIQUE: AP view(s) of the abdomen. FINDINGS/ IMPRESSION: Tip of the enteric tube is in the left upper quadrant of the stomach. Visualized osseous structures are unremarkable. Nonobstructive bowel gas pattern. Reviewed, dictated and finalized at location N.
--- NOTE | ~2024-11-26 | XR_ITS ---
Examination: XR chest 1V portable Clinical History: Pneumonia, respiratory failure Comparison: 1 day prior Technique: Portable AP Findings: ET tube, right neck central line. Cardiomegaly. Persistent complete left lower lobe atelectasis with oral effusion. Persistent right lower lobe atelectasis and/or airspace disease. No acute bony abnormality. IMPRESSION: 1. Persistent complete left lower lobe atelectasis. Aspiration and/or mucous plug suspected. 2. Persistent left pleural effusion. 3. Persistent right basilar atelectasis and/or airspace disease. Reviewed, dictated and finalized at location R. IMPRESSION: 1. Persistent complete left lower lobe atelectasis. Aspiration and/or mucous p lug suspected. 2. Persistent left pleural effusion. 3. Persistent right basilar atelectasis and/or airspace disease.
--- NOTE | ~2024-11-26 | XR_ITS ---
EXAM/PROCEDURE: XR chest PICC line - 11/28/2024 9:25 CDT HISTORY: 64 years old Male with picc adjustment TECHNIQUE: Two view(s) of the chest. COMPARISON: 11/28/2024 FINDINGS: LUNGS/ PLEURA: Mild vascular congestion, bilateral interstitial and alveolar opacities. Near complete desiccation of right hemithorax. HEART/ MEDIASTINUM: Moderate cardiomegaly. BONES: Degenerative changes. OTHER: Visualized upper abdomen is unremarkable. Endotracheal tube appears to been good position. Tip of the PICC line is in the left brachiocephalic vein. IMPRESSION: Tip of the PICC line is in the left brachiocephalic vein. Reviewed, dictated and finalized at location N.
--- NOTE | ~2024-11-26 | XR_ITS ---
EXAMINATION: XR chest 1V portable DATE: 12/07/2024 05:52 INDICATION: Respiratory failure TECHNIQUE: frontal view of the chest was obtained. COMPARISON: Chest radiograph dated 12/07/23 FINDINGS: Endotracheal tube tip 6.0 cm above the evelyn. Nasogastric tube extends below the left hemidiaphragm with distal tip collimated off the study. Right internal jugular central venous catheter appears to be withdrawn slightly with distal tip now in the mid superior vena cava. Opacities in the left mid to lower lung zone with dense retrocardiac consolidation. Decreasing mild opacities at the right lower lung zone. No pneumothorax or evident right pleural effusion although the right costophrenic angle is excluded from the [id number]. Borderline heart size accounting for AP technique. IMPRESSION: 1. Persistent opacities in the left mid to lower lung zone with retrocardiac consolidation which could represent atelectasis and/or pneumonia possibly with superimposed small left pleural effusion. 2. Decreasing opacities in the right lower lung zone which could represent improving atelectasis or pneumonia. 3. Borderline heart size. 4. Endotracheal tube tip 6.0 cm above the evelyn. Consider advancement by 3-4 cm. Reviewed, dictated and finalized at location A. IMPRESSION: 1. Persistent opacities in the left mid to lower lung zone with retrocardiac co nsolidation which could represent atelectasis and/or pneumonia possibly with huerta perimposed small left pleural effusion. 2. Decreasing opacities in the right lower lung zone which could represent impr oving atelectasis or pneumonia. 3. Borderline heart size. 4. Endotracheal tube tip 6.0 cm above the evelyn. Consider advancement by 3-4 c m.
--- NOTE | ~2024-11-26 | XR_ITS ---
Examination: XR chest 1V portable Clinical History: Resp Failure Comparison: 1 day prior Technique: Portable AP Findings: ET tube, NG tube, right neck central line. Cardiomegaly. Persistent bibasilar airspace opacities, left lung worse. Probable effusions. No acute bony abnormality. IMPRESSION: 1. No significant change. 2. Bibasilar atelectasis and/or airspace disease. 3. Probable effusions. Reviewed, dictated and finalized at location R.
--- NOTE | ~2024-11-26 | XR_ITS ---
EXAM/PROCEDURE: XR abdomen gastric tube insert - 11/28/2024 20:50 CDT HISTORY: 64 years old Male with OG placement COMPARISON: None available. TECHNIQUE: AP view(s) of the abdomen. FINDINGS/ IMPRESSION: OG catheter with its tip in the left upper quadrant, likely the gastric fundus. Osseous structures are unremarkable. Reviewed, dictated and finalized at location N.
--- NOTE | ~2024-11-26 | XR_ITS ---
EXAMINATION: XR chest ET placement 12/09/2024 11:05 INDICATION: Endotracheal tube readjustment TECHNIQUE:A single portable AP supine image of the chest was obtained. COMPARISON: Chest x-ray 12/09/2024 10:48 AM FINDINGS: Right-sided central venous catheter with the tip projecting over the region of the cavoatrial junction. Nasogastric tube is noted at least to the distal third of the esophagus. Tip of the endotracheal tube is 4.9 cm above the evelyn. Visualized cardiomediastinal silhouette is unchanged. Stable opacities in the visualized lung miller. The lungs were not fully imaged which limits evaluation. IMPRESSION: 1: Limited study as above. 2. Tip of endotracheal tube is 4.9 cm above the evelyn. Please see above for full details. Reviewed, dictated and finalized at location Q.
--- NOTE | ~2024-11-26 | XR_ITS ---
EXAMINATION: XR chest ET placement 12/09/2024 11:05 INDICATION: Exchanged ET tube TECHNIQUE:2 images of the chest were obtained. COMPARISON: Chest x-ray 12/10/2019 5:58 AM FINDINGS: Endotracheal tube is present with its tip 4.3 cm above the evelyn. Nasogastric tube courses below diaphragm, its tip is not visualized. The study is limited. The right lung is not fully visualized. Redemonstration of the confluent opacity in the lower third of the left hemithorax which may represent a combination of pleural fluid with adjacent atelectasis and/or consolidation. Underlying mass is possible. Recommend follow-up to resolution. Patchy opacities are noted scattered throughout the visualized lung miller similar to the prior study. No visualized pneumothorax. IMPRESSION: 1: Endotracheal tube is present with its tip 4.3 cm above the evelyn. 2. Limited study as above. 3.The right lung is not fully visualized. 4. Redemonstration of the confluent opacity in the lower third of the left hemithorax which may represent a combination of pleural fluid with adjacent atelectasis and/or consolidation. An underlying mass is possible. Recommend follow-up to resolution. Consider a chest CT. 5. Patchy opacities are noted scattered throughout the visualized lung miller similar to the prior study. Reviewed, dictated and finalized at location Q. IMPRESSION: 1: Endotracheal tube is present with its tip 4.3 cm above the evelyn. 2. Limited study as above. 3.The right lung is not fully visualized. 4. Redemonstration of the confluent opacity in the lower third of the left jordana thorax which may represent a combination of pleural fluid with adjacent atelect asis and/or consolidation. An underlying mass is possible. Recommend follow-up to resolution. Consider a chest CT. 5. Patchy opacities are noted scattered throughout the visualized lung miller s imilar to the prior study.
--- NOTE | 2024-11-26 03:39 | ECG_ITS ---
Test Date: 2024-11-26 03:34:03 Measurements Intervals [place] Rate: 114 P: 0 W[place]: 0 QRS: -70 QRSD: 94 T: 76 QT: 302 QTc: 416 Interpretive Statements ATRIAL FIBRILLATION WITH RAPID VENTRICULAR RESPONSE WITH ABERRANT CONDUCTION OR VENTRICULAR PREMATURE COMPLEXES MARKED LEFT AXIS DEVIATION [QRS AXIS < -30] LOW QRS VOLTAGE [QRS DEFLECTION < 0.5/1.0 mV IN LIMB/CHEST LEADS] POSSIBLE INFERIOR MYOCARDIAL INFARCTION , PROBABLY OLD [30 ms Q WAVE IN II/aVF] ANTEROSEPTAL MYOCARDIAL INFARCTION , PROBABLY OLD [40+ ms Q WAVE IN V1-V4] ABNORMAL ECG Compared to ECG 07/20/2024 17:56:45 Ventricular premature complex(es) now present Aberrant conduction of supraventricular beat(s) now present Left-axis deviation now present Myocardial infarct finding still present Electronically Signed On 11-26-2024 12:22:37 CDT by Nitin Sanchez M.D.
--- OUTSIDE RECORDS SUMMARY | 2024-11-26 03:57 | XMS_ITS | Encounter Summary ---
Author Organization [facility] Address [address] [place] [address] Care Team Providers Care Traffic Signal Repairer Name Role Phone Unavailable Primary Care Provider Unavailabl e Encounter Details Date Type Department Care Team (Late st Contact Info) Description 08/25/[address] 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
--- OUTSIDE RECORDS SUMMARY | 2024-11-26 03:57 | XMS_ITS | Clinical Summary ---
Author Organization [facility] Address [address] 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
[2024-11-26 04:00] LABS: Hematocrit 49.9 % (42.0-52.0); Hemoglobin 14.4 g/dL (14.0-18.0); Immature Granulocyte Percent A 0.4 % (0-0.5); Lymphocytes Absolute Auto 2.32 K/mm3 (0.9-3.2); Mean Corpuscular HGB Conc 28.9 g/dl (32-36); Mean Corpuscular Hemoglobin 27.2 pg (26-34); Mean Corpuscular Volume 94.3 fl (80-100); Nucleated Red Blood Cells Absolute Auto 0.030 K/mm3 (0.0-0.012); Nucleated Red Blood Cells Perc 0.4 % (0.0-0.2); Platelet Count Result 222 k/mm3 (150-375); Red Blood Count 5.29 M/mm3 (4.6-6.20); White Blood Count 8.2 K/mm3 (4.5-10.0)
[2024-11-26 04:11] LABS: INR 1.2; Partial Thromboplastin Time 31.0 Seconds (22.3-36.8); Prothrombin Time 15.3 Seconds (11.1-14.7)
[2024-11-26 04:12] LABS: Alanine Aminotransferase 37 U/L (6-50); Albumin Level 3.7 g/dL (3.5-5.1); Alkaline Phosphatase 128 U/L (38-126); Anion Gap 7 mmol/L (4-12); Aspartate Amino Transferase 62 U/L (17-59); Bilirubin,Total 0.8 mg/dL (0.2-1.3); Blood Urea Nitrogen 22 mg/dL (9-20); Calcium 9.0 mg/dL (8.4-10.2); Carbon Dioxide 35 mmol/L (22-30); Chloride 98 mmol/L (98-107); Estimated Glomerular Filt Rate > 60; Glucose 121 mg/dL (65-110); Magnesium 1.6 mg/dL (1.6-2.3); Potassium 4.6 mmol/L (3.4-5.0); Sodium 140 mmol/L (137-145); Total Protein 8.0 g/dL (6.3-8.2)
[2024-11-26 04:17] LABS: Anisocytosis 1+; Hypochromasia 1+; Schistocytes None Seen
[2024-11-26 04:21] LABS: NT Pro B Type Natriuretic Pept 3790 pg/mL (19.9-100)
[2024-11-26] MEDS: ALBUTEROL SULFATE NEB 2.5 MG/3 ML INH 10 MG INHALATION (04:33)
[2024-11-26] MEDS: IPRATROPIUM BR 0.02% INH SOLN 0.5 MG/2.5 ML VIAL 2 MG INHALATION (04:33)
[2024-11-26 04:36] LABS: Influenza A QL RT-PCR Negative (Negative); Influenza B QL RT-PCR Negative (Negative); RSV RNA, RT-PCR Negative (Negative); SARS-CoV-2 RNA PCR Negative (Negative)
[2024-11-26] MEDS: cefTRIAXone 1 GM in SODIUM CHLORIDE 0.9% IV 50 ML 100 ML IVPB (05:13)
[2024-11-26] MEDS: AZITHROMYCIN IV 500 MG in SODIUM CHLORIDE 0.9% IV 250 ML IVPB (05:13)
--- NOTE | 2024-11-26 06:21 | ED.GENADULT ---
HPI - General Adult General Chief complaint: Shortness of Breath/Dyspnea Stated complaint: SOB Time Seen by Provider: 11/26/24 03:36 History of Present Illness HPI narrative: Patient is a 64-year-old male who presents to the emergency department this evening complaining of worsening shortness of breath. Patient states that he was getting ready to go to bed and was trying to sleep but due to the shortness of breath he could not go to sleep. Admits that he does have a history of COPD/asthma and obstructive sleep apnea and does wear BiPAP at night. Patient was noted to be hypoxic mid to high 80s on room air. Patient is that he does not normally wear oxygen at home just the BiPAP at night for his KATIE. Denies any active chest pain, any recent illness, fevers or chills. Related Data Home Medications ?Medication ?Instructions ?Recorded ?Confirmed ?Last Taken ?Type flkgeize-he-awqiy 300 mcg-K 60 1 tablet PO DAILY 05/13/19 07/20/24 Unknown History mcg-lycop 600 mcg-lutein 300 mcg tablet (Centrum Silver Men) metformin 1,000 mg tablet 1,000 mg PO BID 07/20/24 07/20/24 Unknown History Allergies Allergy/AdvReac Type Severity Reaction Status Date / Time metformin Allergy Unknown itching, Verified 03/02/20 08:40 SOB Review of Systems Review of Systems: All systems are reviewed and are negative unless stated otherwise in the HPI. [facility] Past Medical History Medical History Class 3 severe obesity with body mass index (BMI) of 60.0 to 69.9 in adult Chronic respiratory failure with hypoxia and hypercapnia On home O2 Eczema KATIE (obstructive sleep apnea) With prior sleep study in 2010 recommend a BiPAP of / Type 2 diabetes mellitus COPD (chronic obstructive pulmonary disease) HLD (hyperlipidemia) Essential hypertension Surgical History Surgical History History of back surgery Status post surgery of both feet Family History Family History Mother Hypertension Social History Social History Smoking packs per day: 0.5 Smoking cigarettes per day: 10.0 Years smoked: 40 Smoking pack-years: 20.00 Smoking status: Current every day smoker Tobacco type: cigarettes Smoking end date: 03/16/14 Alcohol intake: never Substance use: never Substance use type: does not use Do You Feel Safe in your Home?: Yes Lack of Transportation: No Lack of Food: Never True Current Housing: I Have Housing Concerned About Future Housing: No Difficulty Paying Gas/Electric Bills: No Difficulty Paying for Meds: No Currently Unemployed: No Education: High School Diploma/GED Difficulty w/ Childcare or Family Care: No Spiritual care concerns: No Exam Narrative: General: Alert, awake, afebrile, in moderate respiratory distress, morbidly obese. HEENT: PERRL, no rhinorrhea, no post nasal drip, oropharynx clear. Neck: Trachea midline, no JVD, no lymphadenopathy. Cardiovascular: Tachycardic with regular rhythm, no murmurs, rubs or gallops, no peripheral edema. Respiratory: Diffuse inspiratory and expiratory wheezing bilaterally, tachypnea, moderate respiratory distress. Abdomen: Soft, nontender, nondistended, no rebound, no guarding, no peritoneal signs. Musculoskeletal: No joint swelling or deformity, normal muscle tone. Skin: No rashes or petechia, no signs of infection. Psychiatric: Alert and oriented, normal behavior and judgment for situation. Neurological: Alert and oriented to person, place, and time. Follows all commands. No focal deficits, speech is clear and fluent. Course Vital Signs Vital signs: Vital Signs Temperature 97.6 F 11/26/24 03:22 Pulse Rate 116 H 11/26/24 03:22 Respiratory Rate 24 H 11/26/24 03:22 Blood Pressure 124/110 H 11/26/24 03:22 Pulse Oximetry 99 11/26/24 03:22 Oxygen Delivery Non-Rebreather Mask 11/26/24 03:22 Oxygen Flow Rate 15 11/26/24 03:22 Temperature 97.6 F 11/26/24 03:22 Pulse Rate 116 H 11/26/24 03:22 Respiratory Rate 24 H 11/26/24 03:22 Blood Pressure 124/110 H 11/26/24 03:22 Pulse Oximetry 99 11/26/24 03:37 Oxygen Delivery Non-Rebreather Mask 11/26/24 03:37 Oxygen Flow Rate 15 11/26/24 03:37 Medical Decision Making MDM Narrative Medical decision making narrative: The patient was evaluated by myself in the emergency department. History is obtained from patient who is an independent historian and physical exam was performed. External medical records were reviewed at this time. IV was established and pertinent tests were ordered. Patient was administered 125 mg of IV Solu-Medrol and an hour long DuoNeb breathing treatment. After the breathing treatment patient is now maintaining his O2 of 95 on 6 L nasal cannula. Patient was also started on IV antibiotics with Rocephin and azithromycin due to concern for COPD exacerbation/sepsis. Laboratory results obtained revealing a BNP of 3790, otherwise unremarkable. Patient did have an echocardiogram from July 2024 revealing normal ejection fraction. ABG revealed a pH of 7.264, CO2 of 61.2, PO2 of 70.1, bicarb 27.1. Imaging studies obtained included CXR which was independently interpreted by me revealing, which is pending final radiology interpretation. Differential diagnosis considerations include infectious process such as pneumonia, reactive airway disease/COPD exacerbation/asthma exacerbation, fluid overload. Comorbidities impacting this visit include history of obstructive sleep apnea, COPD, asthma. I have evaluated and discussed social determinants of health with the patient that could potentially impact subsequent diagnosis and treatment plans. On repeat assessment of the patient, reevaluation revealed that the patient is doing well and is in no acute distress. Patient symptoms have improved since he arrived to our emergency department. Repeat vital signs were all reviewed and noted to be stable. Differential diagnosis and treatment plan were discussed with the patient at bedside. Patient agrees with discussion and after shared medical decision making agrees with admission. All questions were answered to the patient's satisfaction. Case discussed with the on-call hospitalist Dr. Jones at 06 and she accepted IMU admission. Patient will be placed on BiPAP. Critical care time of 37 minutes, exclusive of separately performed procedures, necessary for treating or preventing eminent or life-threatening deterioration of patient's condition of acute hypoxic respiratory failure requiring hour long DuoNeb breathing treatment, sepsis, focused on patient care provided personally by me and time spent during initial evaluation, physical examination, ordering and performing treatments and interventions, ordering and reviewing laboratory studies, ordering and reviewing radiographic studies, re-evaluation of the patient's condition, evaluation of the patient's response to treatment, and discussion of patient case with multiple consultants. Vital Signs Vital Signs: Vital Signs Temperature 97.6 F 11/26/24 03:22 Pulse Rate 116 H 11/26/24 03:22 Respiratory Rate 24 H 11/26/24 03:22 Blood Pressure 124/110 H 11/26/24 03:22 Pulse Oximetry 99 11/26/24 03:22 Oxygen Delivery Non-Rebreather Mask 11/26/24 03:22 Oxygen Flow Rate 15 11/26/24 03:22 Temperature 97.6 F 11/26/24 03:22 Pulse Rate 116 H 11/26/24 03:22 Respiratory Rate 24 H 11/26/24 03:22 Blood Pressure 124/110 H 11/26/24 03:22 Pulse Oximetry 99 11/26/24 03:37 Oxygen Delivery Non-Rebreather Mask 11/26/24 03:37 Oxygen Flow Rate 11/26/24 03:37 Lab Data 11/26/24 03:53 11/26/24 03:53 Labs: Lab Results 11/26/24 11/26/24 Range/Units 03:53 06:36 WBC 8.2 (4.5-10.0) K/mm3 RBC 5.29 (4.6-6.20) M/mm3 Hgb 14.4 (14.0-18.0) g/dL Hct 49.9 (42.0-52.0) % MCV 94.3 (80-100) fl MCH 27.2 (26-34) pg MCHC 28.9 L (32-36) g/dl RDW 17.0 H (11.5-14.5) % Plt Count 222 (150-375) k/mm3 MPV 9.4 (7.4-10.4) fl Immature Gran % (Auto) 0.4 (0-0.5) % Neut % (Auto) 60.3 (45.5-73.1) % Lymph % (Auto) 28.5 (18.3-44.2) % Bond % (Auto) 9.3 H (2.6-8.5) % Eos % (Auto) 1.0 (0-4.4) % Baso % (Auto) 0.5 (0.2-1.2) % Lymph # (Auto) 2.32 (0.9-3.2) K/mm3 Bond # (Auto) 0.8 H (0.1-0.6) K/mm3 Eos # (Auto) 0.1 (0-0.3) K/mm3 Baso # (Auto) 0.0 (0.0-0.1) K/mm3 Abs Immat Gran (auto) 0.03 (0.00-0.031) K/mm3 Absolute Neuts (auto) 4.9 (1.3-6.7) K/mm3 Absolute Nucleated RBC 0.030 H (0.0-0.012) K/mm3 Band Neutrophils % Not Reportable Nucleated RBC % 0.4 H (0.0-0.2) % Platelet Estimate Adequate (Adequate) Hypochromasia 1+ Anisocytosis 1+ Schistocytes None seen PT 15.3 H (11.1-14.7) Seconds INR 1.2 APTT 31.0 (22.3-36.8) Seconds Methemoglobin 0.4 (0-1.5) %THb Sodium 140 (137-145) mmol/L Potassium 4.6 (3.4-5.0) mmol/L Chloride 98 (98-107) mmol/L Carbon Dioxide 35 H (22-30) mmol/L Anion Gap 7 (4-12) mmol/L BUN 22 H D (9-20) mg/dL Creatinine 0.86 (0.7-1.3) mg/dL Estim Creat Clear Calc Not Reportable Estimated GFR > 60 (59 - ) Glucose 121 H (65-110) mg/dL Lactic Acid 1.2 (0.7-2.0) mmol/L Calcium 9.0 (8.4-10.2) mg/dL Magnesium 1.6 (1.6-2.3) mg/dL Total Bilirubin 0.8 (0.2-1.3) mg/dL AST 62 H (17-59) U/L ALT 37 (6-50) U/L Alkaline Phosphatase 128 H (38-126) U/L NT-Pro-B Natriuret Pep 3790 H (19.9-100) pg/mL Total Protein 8.0 (6.3-8.2) g/dL Albumin 3.7 (3.5-5.1) g/dL Influenza A (RT-PCR) Negative (Negative) Influenza B (RT-PCR) Negative (Negative) RSV (RT-PCR) Negative (Negative) SARS-CoV-2 RNA (RT-PCR) Negative (Negative) ABG Data ABG results: 11/26/24 06:36 Puncture Site Right radial ABG pH 7.264 L* ABG pCO2 61.2 H* ABG pO2 70.1 L ABG PO2/FiO2 Ratio 1.75 ABG HCO3 27.1 H ABG O2 Saturation 91.3 L ABG O2 Content 19.0 ABG Base Excess -1.3 A-a Gradient 144.7 Oxyhemoglobin 90.0 Carboxyhemoglobin 2.2 H Reduced Hemoglobin 7.4 H Total Hemoglobin 15.0 O2 Delivery Device Nasal cannula O2 Liters/Min 5.0 FiO2 40 Critical Care Time Critical Care Time Critical Care Time: Yes Total Critical Care Time: 37 (Please refer to [facility] for attestation.) Discharge Plan Discharge Clinical Impression: Acute hypoxic respiratory failure, COPD exacerbation Patient Disposition: Still a Patient Condition: Improved Patient Language: Indonesian Prescriptions: No Action Centrum Silver Men 300-600-300 mcg tablet 1 tablet PO DAILY amlodipine 10 mg tablet 10 mg PO DAILY Qty: 90 3RF metformin 1,000 mg tablet 1,000 mg PO BID furosemide 40 mg Tablet 40 mg PO BID Qty: 30 0RF prednisone 20 mg Tablet 40 mg PO DAILY@0800 Qty: 10 0RF Rx Instructions: Please take for 5 days bacitracin 500 unit/gram Ointment 1 applic topical Q12HR Qty: 30 0RF Rx Instructions: administered for five days twice per month for six months mupirocin 2 % Ointment 1 applic EACH NARE Q12HR Qty: 30 0RF levalbuterol HCl 1.25 mg/3 mL Solution For Nebulization 1.25 mg inhalation Q4HRT PRN (Reason: shortness of breath or wheezing) Qty: 30 0RF Eliquis 5 mg Tablet 5 mg PO Q12HR Qty: 30 0RF guaifenesin [Mucus Relief ER] 600 mg Tablet Extended Release 12hr 1,200 mg PO Q12HR Qty: 30 0RF sulfamethoxazole-trimethoprim 800-160 mg Tablet 1 tablet PO Q12HR Qty: 10 0RF Rx Instructions: Please complete the course for 5 days umeclidinium-vilanterol [Anoro Ellipta] 62.5-25 mcg/actuation blister with device 1 inh inhalation DAILY Qty: 60 0RF sertraline 50 mg tablet 50 mg PO DAILY Qty: 90 3RF lisinopril 40 mg tablet See Rx Instructions .ROUTE .COMPLEX Qty: 30 0RF Dose Instruction: TAKE 1 TABLET BY MOUTH DAILY Rx Instructions: TAKE 1 TABLET BY MOUTH DAILY Follow-up/Referrals: Valeriy,Manish Richardson MD [Primary Care Provider, Unknown] Time of Disposition: 06:31
[2024-11-26 06:44] LABS: Alveolar/Arterial O2 Gradient 144.7 mmHg; Carboxyhemoglobin 2.2 % THb (0-2.0); Fractional Inspired Oxygen 40 %; HCO3 ABG 27.1 mEq/l (22.0-26.0); Methemoglobin ABG 0.4 %THb (0-1.5); Oxygen Content ABG 19.0 %vol (16.0-22.0); Oxygen Saturation ABG 91.3 % (95.0-100.0); PO2 ABG 70.1 mmHg (80.0-100.0); PO2 FiO2 Ratio Arterial Blood 1.75 %; Reduced Hemoglobin 7.4 %THb (0-5.0)
[2024-11-26 06:46] LABS: Modified Allen's Test Pass; PCO2 ABG 61.2 mmHg (35.0-45.0); Site Drawn RIGHT RADIAL
[2024-11-26 06:47] LABS: Liters per Minute 5.0 LPM
--- NOTE | 2024-11-26 07:54 | P.HP_ITS ---
H&P: HPI History of Present Illness Date/Time: 11/26/24 07:54 Chief Complaint: Shortness of breath Narrative: A 64-year-old male with a past medical history of class 3 obesity with a BMI greater than 60, obstructive sleep apnea on home BiPAP, chronic hypoxic respiratory failure on home O2 2 L, type 2 diabetes mellitus, essential hypertension, and depression who presented to the ER from home via EMS due to increased shortness of breath. Previous discharge summary review indicates the patient has been bedbound for the past 1 year due to his obesity. At home, he was on 2 L of home oxygen when awake and wore BiPAP during the nighttime. The patient was discharged on 07/24/2024 with the following recommendations: beta agonist and muscarinic antagonist, with rescue levalbuterol. When he naps or sleeps: through DME IV respiratory care: noninvasive ventilation with the IVAPS- AE mode: rate of 20, tidal volume 550, minimum EPAP 5, maximum EPAP 20, minimum pressure support 6, maximum pressure support 25, and 3 L bleed in. Regarding his COPD, the patient smoked tobacco from age 14 to the present, at one pack per day for a total of 50 pack years. As per previous pulmonology notes, the [employer] company called and had difficulty arranging an appointment with the patient to set up a noninvasive ventilator. Patient is currently admitted in the setting of pneumonia/COPD exacerbation. Patient is noncompliant with his medication. Patient is not to take Eliquis and other drugs. The patient followed up with a insole bottom filler as an outpatient. The patient has a wound on his left great toe, which was caused by an EMS member stepping on his toe. Review of Systems Review of Systems: All systems are reviewed and are negative unless stated otherwise in the HPI. [facility] Past Medical History Medical History Class 3 severe obesity with body mass index (BMI) of 60.0 to 69.9 in adult Chronic respiratory failure with hypoxia and hypercapnia On home O2 Eczema KATIE (obstructive sleep apnea) With prior sleep study in 2010 recommend a BiPAP of 25/20 Type 2 diabetes mellitus COPD (chronic obstructive pulmonary disease) HLD (hyperlipidemia) Essential hypertension Surgical History Surgical History History of back surgery Status post surgery of both feet Family History Family History (Updated 11/26/24 @ 09:23 by Martha Garcia RN) Mother Hypertension Father Emphysema lung Social History Social History Smoking packs per day: 1.5 Smoking cigarettes per day: 30.0 Years smoked: 12 Smoking pack-years: 18.00 Smoking status: Former smoker Tobacco type: cigarettes Second hand tobacco smoke exposure: Yes Smoking end date: 03/16/14 Alcohol intake: never Substance use: never Substance use type: does not use Do You Feel Safe in your Home?: Yes Lack of Transportation: YES Lack of Food: Never True Current Housing: I Have Housing Concerned About Future Housing: No Difficulty Paying Gas/Electric Bills: No Difficulty Paying for Meds: No Currently Unemployed: No Education: Associate Degree Difficulty w/ Childcare or Family Care: No Spiritual care concerns: No Meds Home Medications and Allergies Home Medications ?Medication ?Instructions ?Recorded ?Confirmed ?Type dfknfwks-uk-ayztx 300 mcg-K 60 1 tablet PO DAILY 05/1311/26/24 History mcg-lycop 600 mcg-lutein 300 mcg tablet (Centrum Silver Men) Held on 11/26/24. Instructions: Patient no longer taking sertraline 50 mg tablet 50 mg PO DAILY #90 tabs 10/1611/26/24 Rx amlodipine 10 mg tablet 10 mg PO DAILY #90 tabs 02/1311/26/24 Rx Held on 11/26/24. Instructions: Patient no longer taking lisinopril 40 mg tablet See Rx Instructions .Route 1 11/26/24 Rx .COMPLEX #30 tabs metformin 1,000 mg tablet 1,000 mg PO BID 07/20/24 History apixaban 5 mg tablet (Eliquis) 5 mg PO Q12HR #30 tabs 07/24/24 11/26/24 Rx Held on 11/26/24. Instructions: Patient no longer taking bacitracin 500 unit/gram topical 1 applic topical Q12H R #30 grams 07/24/24 11/26/24 Rx ointment Held on 11/26/24. Instructions: Patient no longer taking furosemide 40 mg tablet 40 mg PO BID #30 tabs 11/26/24 Rx guaifenesin 600 mg tablet, 1,200 mg (2 x 600 mg) PO Q1 2HR #30 07/24/24 11/26/24 Rx extended release 12 hr (Mucus tabs Relief ER) levalbuterol HCl 1.25 mg/3 mL 1.25 mg (3 mL) inhalatio n Q4HRT 07/24/24 11/26/24 Rx solution for nebulization PRN shortness of breath or wheezing #30 mL umeclidinium 62.5 mcg-vilanterol 1 inh inhalation DWIGHT Y #60 ea 07/24/24 11/26/24 Rx 25 mcg/actuation powdr for inhalation (Anoro Ellipta) Allergies Allergy/AdvReac Type Severity Reaction Status Date / Time tramadol AdvReac urinary Verified 11/26/24 11:11 retention Vital Signs Vital Signs - 24 hr 11/26/24 03:22 11/26/24 03:37 Temperature 97.6 F Pulse Rate 116 H Respiratory Rate 24 H Blood Pressure 124/110 H Pulse Oximetry 99 99 Oxygen Delivery Non-Rebreather Mask Non-Rebreather Mask Oxygen Flow Rate 15 15 Exam Narrative: General: Alert, awake, afebrile, in moderate respiratory distress, morbidly obese. HEENT: PERRL, no rhinorrhea, no post nasal drip, oropharynx clear. Neck: Trachea midline, no JVD, no lymphadenopathy. Cardiovascular: Tachycardic with regular rhythm, no murmurs, rubs or gallops, no peripheral edema. Respiratory: Diffuse inspiratory and expiratory wheezing bilaterally, tachypnea, moderate respiratory distress. Abdomen: Soft, nontender, nondistended, no rebound, no guarding, no peritoneal signs. Musculoskeletal: No joint swelling or deformity, normal muscle tone. Skin: No rashes or petechia, no signs of infection. Psychiatric: Alert and oriented, normal behavior and judgment for situation. Neurological: Alert and oriented to person, place, and time. Follows all commands. No focal deficits, speech is clear and fluent. H&P: Results Labs Labs: Short CBC 11/26/24 Range/Units 03:53 WBC 8.2 (4.5-10.0) K/mm3 Hgb 14.4 (14.0-18.0) g/dL Hct 49.9 (42.0-52.0) % Plt Count 222 (150-375) k/mm3 BMP 11/26/24 03:53 Sodium 140 Potassium 4.6 Chloride 98 Carbon Dioxide 35 H BUN 22 H D Creatinine 0.86 Glucose 121 H Calcium 9.0 Liver Function 11/26/24 Range/Units 03:53 Total Bilirubin 0.8 (0.2-1.3) mg/dL AST 62 H (17-59) U/L ALT 37 (6-50) U/L Alkaline Phosphatase 128 H (38-126) U/L Albumin 3.7 (3.5-5.1) g/dL Assessment and Plan Assessment and plan (1) COPD exacerbation: Code(s): J44.1 - Chronic obstructive pulmonary disease with (acute) exacerbation Status: Acute Assessment and Plan: -Likely combination of Pneumonia/COPD exacerbation and underlying obesity hypoventilation syndrome. -currently on non-rebreather at 15 liters/minute - Xopenex and Atrovent. -continue guaifenesin -S/P Solu-Medrol 125 mg IV x1 -prednisone 40 mg for 5 days -Advised Smoking cessation and Weight loss -CT scan performed on 07/22 shows mild bibasilar atelectasis or scaring otherwise clear lungs -patient do not want hospital BiPAP admission agrees to wear BiPAP from his home (2) KATIE (obstructive sleep apnea): Code(s): G47.33 - Obstructive sleep apnea (adult) (pediatric) Status: Acute Assessment and Plan: Non compliant with BiPAP (3) HLD (hyperlipidemia): Qualifiers: Hyperlipidemia type: unspecified Qualified Code(s): E78.5 - Hyperlipidemia, unspecified Code(s): E78.5 - Hyperlipidemia, unspecified Status: Acute Assessment and Plan: Order lipid panel (4) Atrial fibrillation with RVR: Code(s): I48.91 - Unspecified atrial fibrillation Status: Acute Assessment and Plan: Continue apixaban 5 mg p.o. b.i.d. (5) Essential hypertension: Code(s): I10 - Essential (primary) hypertension Status: Acute Assessment and Plan: Continue lisinopril 40 mg p.o. q.d. Continue furosemide 40 mg p.o. b.i.d. Continue amlodipine 10 mg p.o. q.d. (6) Type 2 diabetes mellitus: Qualifiers: Diabetes mellitus complication status: without complication Diabetes mellitus group home insulin use: without group home use Qualified Code(s): E11.9 - Type 2 diabetes mellitus without complications Code(s): E11.9 - Type 2 diabetes mellitus without complications Status: Acute Assessment and Plan: Will start on sliding scale Titrate as needed Plan Code status full code DVT prophylaxis Eliquis 5 mg p.o. b.i.d. Hospitalist [facility] Advance Care Plan I have confirmed that the patient's Advanced Care Plan is present, code status is documented, or surrogate decision maker is listed in patient medical record.: Yes Medication Reconciliation I have utilized all available resources to obtain, update and review the patients current medications (includes all prescriptions, OTC, herbals, cannabis, and nutritional supplements).: Yes
--- NOTE | 2024-11-26 08:50 | WNDPHOTO ---
PHOTO ONLY - See Nursing Notes and/ or assessments for documentation.
--- NOTE | 2024-11-26 11:09 | ADMGEN ---
This patient, Aman Newberry, was admitted to IMU Room 204-01 at approximately 0835. Patient/family oriented to hospital policies and general routines including ID bracelet, bed and alarms, visiting hours, pain management, procedures, bathroom and other care routines, personal items, smoking policy, room service/diet, and visiting hours. Information on how to activate the Rapid Response Team has been discussed. Patient/Family are encouraged to report perceived risks to care and to ask questions if they do not understand what they are told or what they should do.
[2024-11-26] MEDS: ACETAMINOPHEN 325 MG TABLET 650 MG PO (14:46)
[2024-11-26] MEDS: FUROSEMIDE 40 MG TABLET PO (16:55)
--- NOTE | 2024-11-26 17:19 | PC.NURSE ---
PT using own home unit with nasal cushion but is breathing through his mouth and not maintaining his saturation levels. Tried changing to hospital mask. EVELIN gave order for autotitrate with hospital unit. PT desats to 80%. After adjusting the unit with Respiratory the patients O2 sat is ranging in low 90's on 7L bleeding into unit. %. PT lethargic but does wake and able to take PO medication. PT previously stated he hadn't slept in days. Received order from EVELIN for ABG in AM and to use v60 if patient cannot maintain o2 sat above 90.
[2024-11-26] MEDS: APIXABAN 5 MG TABLET PO (21:17)
[2024-11-26] MEDS: guaiFENesin 12 HR 600 MG TABCR 1200 MG PO (21:18)
--- NOTE | 2024-11-26 22:24 | PM.CNPUL ---
Assessment and Plan Assessment and plan (1) Acute on chronic respiratory failure with hypoxia and hypercapnia: Code(s): J96.21 - Acute and chronic respiratory failure with hypoxia; J96.22 - Acute and chronic respiratory failure with hypercapnia Status: Acute Assessment and Plan: The patient has COPD with acute in chronic hypercarbic respiratory failure. He would benefit from noninvasive ventilation to prevent further deterioration and subsequent hospitalizations. Last admission July 2024, BiPAP was not tolerated, BIPAP did not correct his respiratory acidosis on BiPAP 25/20 with rate 22. He improved on AVAPS AE however mariana not cooperate with home health to allow set up of this device in his house. He did not follow up in our office. If he does not want to use the recommended equipment, code status needs to be reviewed, and changes if he would rather have comfort measure. If he wants to use AVAPS, he can be set up on same settings from July 2024. AVAPS AE: rate of 16, tidal volume 500, EPAP 10, minimal inspiratory pressure 11, maximal inspiratory pressure 25, inspiratory time 0.8, rise of 1 and 32% FiO2. He was set up through [facility]. (2) COPD (chronic obstructive pulmonary disease): Qualifiers: COPD type: COPD with acute exacerbation Qualified Code(s): J44.1 - Chronic obstructive pulmonary disease with (acute) exacerbation Code(s): J44.9 - Chronic obstructive pulmonary disease, unspecified Status: Acute Assessment and Plan: History of smoking tobacco from age 14 to admission, 1 pack per day, 50 pack years. PFTS years ago, diagnosed with COPD. He uses no oxygen at rest or with activity. He is maintained on Lev-albuterol, ANoro is on his medication list, not sure if he is using it. He uses O2 more as p.r.n. than according to instructions. He has not been using BiPAP at night.He did not [place] [facility] [place]. (3) Class 3 severe obesity with body mass index (BMI) of 60.0 to 69.9 in adult: Qualifiers: Obesity type: due to excess calories Serious obesity comorbidity presence: with serious comorbidity Qualified Code(s): E66.813 - Obesity, class 3; Z68.44 - Body mass index [BMI] 60.0-69.9, adult Code(s): E66.813 - Obesity, class 3; Z68.44 - Body mass index [BMI] 60.0-69.9, adult Status: Acute Assessment and Plan: BMI is 66. Plan plan: AVAPS settings; I adjusted settings with a higher tidal volume 650, minimum pressure 18, maximum pressure 25, AVAPS-EPAP6, rate 18, inspiratory time 2nd, rise=1, FiO2 45%. COPD medications-ICS, LABA, LAMA and prn short acting beta agonist. repeat ABG Try to explain how he can improve by letting us give help that he needs. All that he needs was set up at the last admission. History of Present Illness History of Present Illness Consult date: 11/26/24 Requesting physician: Cruzito Renee MD Chief complaint: Hypoxic Respiratory Failure/COPD Exacerbation Narrative: pt was seen Nov 26, 2024 20:00, Room 204 in IMU NEW: Aman Newberry is 64 years old, known to our service, has COPD and severe hypercapnia on BiPAP. He was brought to the ER for increasing shortness of breath. Dr Vasquez asked for a consult to manage his elevated pCO2. Dr Murray saw him when he was in the hospital in July this year. He was discharged on 07/24/2024, was supposed to be on AVAPS AE mode: rate 20, tidal volume 550, minimum EPAP 5, maximum EPAP 20, minimum pressure support 6, maximum pressure support 25, and 3 L bleed in. The patient was a candidate for a non-invasive ventilator, however would not answer the phone when the [employer] tried to contact him, and the patient did not follow up in the office. He is non compliant with medications. He did not follow-up in our office. PMH: Obesity BMI 66; chronic hypercapnic hypoxemic respiratory failure on home oxygen 2 L, DM-II, HTN, depression, DATA: Date 07/21 4:31 11/26 6:36 11/27 4:47 11/27 22:00 pH 7.23 7.26 7.22 7.26 pCO2 77 61 88.8 81 pO2 76 70 89 115 HCO3 31.8 27.1 35.6 35.6 sat 92% 91% 95% 96.7% CarboxyHgb FiO2 40% O2 delivery IPAP EPAP 5 11/26/24; White blood cell count 8.2 , hemoglobin 14.4 grams/deciliter, hematocrit 49.9%, platelets 212K, sodium 140, potassium 4.6, chloride 98, carbon dioxide 35, BUN 22, creatinine 0.86, glucose 121. 9; CXR; Impression: CHF HISTORY = = = = = = = = = = = 07/21/2024: This is a new pulmonary consult for COPD with hypercarbic respiratory failure 64-year-old with a history of hypertension, hyperlipidemia, diabetes, obesity, and COPD. Regarding his COPD the patient smoked tobacco from age 14 to current at 1 pack per day for total of 50 pack years. The patient tells me he had PFTs many years ago and was told that he has COPD. At baseline When he was doing well about 3 weeks ago he can walk half a block. he uses no oxygen at rest or with activity. He is maintained on albuterol. Patient presented to the emergency department on 07/20/2024 with 2 weeks of shortness of breath. EMS was called and his saturations on 2 L of were 82%. He was given bronchodilator and IV steroids in route to the emergency room. In the emergency room his heart rate was 102 and he was in AFib with RVR. Blood pressure 157/138. On 4 L nasal cannula saturations were 96. He had diffuse wheezing. His white blood cell count was 15.3, his creatinine was 0.2, his BNP was 2930. His eosinophil count was 46 per micro L. His chest x-ray was negative. His COVID influenza and RSV RT PCR was negative. ABG on 4 L nasal cannula 7./63. Patient was placed on BiPAP, given an hour long nebulized treatment, given IV diltiazem, IV Lasix and Eliquis. Patient denied fever, chills, rigors, cough, change in phlegm volume or color. 07/21/2024: Patient BiPAP was adjusted through the night and currently he was on a rate of 26, pressures 25/20 and 35% FiO2 when I enter the room. He said this was uncomfortable, he had a high leak and could not sleep with the settings. I changed him to noninvasive ventilation with the AVAPS mode and adjusted the settings for comfort resulting in rate of 16, tidal volume 500, EPAP 10, minimal inspiratory pressure 11, maximal inspiratory pressure 25, inspiratory time 0.8, rise of 1 and 32% FiO2. Patient had a peak inspiratory pressure of 12 and a saturation of 93%. 07/20/2024: CHEST RADIOGRAPH CLINICAL HISTORY: SOA . COMPARISON: None available TECHNIQUE: Single portable view of the chest. FINDINGS The cardiomediastinal silhouette is enlarged. The lungs are clear. IMPRESSION: No focal infiltrate or effusion. Review of Systems Review of Systems: All systems reviewed & are unremarkable except as noted in HPI and below PMFSH Past Medical History Medical History Class 3 severe obesity with body mass index (BMI) of 60.0 to 69.9 in adult Chronic respiratory failure with hypoxia and hypercapnia On home O2 Eczema KATIE (obstructive sleep apnea) With prior sleep study in 2010 recommend a BiPAP of 25/20 Type 2 diabetes mellitus COPD (chronic obstructive pulmonary disease) HLD (hyperlipidemia) Essential hypertension Surgical History Surgical History History of back surgery Status post surgery of both feet Family History Family History (Updated 11/26/24 @ 09:23 by Martha Garcia RN) Mother Hypertension Father Emphysema lung Social History Social History Smoking packs per day: 1.5 Smoking cigarettes per day: 30.0 Years smoked: 12 Smoking pack-years: 18.00 Smoking status: Former smoker Tobacco type: cigarettes Second hand tobacco smoke exposure: Yes Smoking end date: 03/16/14 Alcohol intake: never Substance use: never Substance use type: does not use Do You Feel Safe in your Home?: Yes Lack of Transportation: YES Lack of Food: Never True Current Housing: I Have Housing Concerned About Future Housing: No Difficulty Paying Gas/Electric Bills: No Difficulty Paying for Meds: No Currently Unemployed: No Education: Associate Degree Difficulty w/ Childcare or Family Care: No Spiritual care concerns: No Meds Home Medications and Allergies Home Medications ?Medication ?Instructions ?Recorded ?Confirmed ?Type [id number] 300 mcg-K 60 1 tablet PO DAILY 05/13/19 11/26/24 History mcg-lycop 600 mcg-lutein 300 mcg tablet (Centrum Silver Men) Held on 11/26/24. Instructions: Patient no longer taking sertraline 50 mg tablet 50 mg PO DAILY #90 tabs 11/14/19 11/26/24 Rx amlodipine 10 mg tablet 10 mg PO DAILY #90 tabs 03/02/20 11/26/24 Rx Held on 11/26/24. Instructions: Patient no longer taking lisinopril 40 mg tablet See Rx Instructions .Route 01/01/22 11/26/24 Rx .COMPLEX #30 tabs metformin 1,000 mg tablet 1,000 mg PO BID 07/20/24 11/26/24 History apixaban 5 mg tablet (Eliquis) 5 mg PO Q12HR #30 tabs 07/24/24 11/26/24 Rx Held on 11/26/24. Instructions: Patient no longer taking bacitracin 500 unit/gram topical 1 applic topical Q12HR #30 grams 07/24/24 11/26/24 Rx ointment Held on 11/26/24. Instructions: Patient no longer taking furosemide 40 mg tablet 40 mg PO BID #30 tabs 07/24/24 11/26/24 Rx guaifenesin 600 mg tablet, 1,200 mg (2 x 600 mg) PO Q12HR #30 07/24/24 11/26/24 Rx extended release 12 hr (Mucus tabs Relief ER) levalbuterol HCl 1.25 mg/3 mL 1.25 mg (3 mL) inhalation Q4HRT 07/24/24 11/26/24 Rx solution for nebulization PRN shortness of breath or wheezing #30 mL umeclidinium 62.5 mcg-vilanterol 1 inh inhalation DAILY #60 ea 07/24/24 11/26/24 Rx 25 mcg/actuation powdr for inhalation (Anoro Ellipta) Allergies Allergy/AdvReac Type Severity Reaction Status Date / Time tramadol AdvReac urinary Verified 11/26/24 11:11 retention Vital Signs Vital Signs - 24 hr 11/26/24 03:22 11/26/24 03:37 11/26/24 03:40 Temperature 36.4 C Pulse Rate 116 H 115 H Respiratory Rate 24 H 13 Blood Pressure 124/110 H Pulse Oximetry 99 99 99 Oxygen Delivery Non-Rebreather Mask Non-Rebreather Mask Oxygen Flow Rate 15 15 Fraction of Inspired Oxygen 11/26/24 03:45 11/26/24 03:56 11/26/24 04:00 Temperature Pulse Rate 117 H 118 H 115 H Respiratory Rate 20 21 H 23 H Blood Pressure 151/137 H Pulse Oximetry 99 100 97 Oxygen Delivery Oxygen Flow Rate Fraction of Inspired Oxygen 11/26/24 04:01 11/26/24 04:21 11/26/24 04:30 Temperature Pulse Rate 111 H 119 H 99 Respiratory Rate 24 H 19 16 Blood Pressure 139/117 H Pulse Oximetry 99 100 99 Oxygen Delivery Oxygen Flow Rate Fraction of Inspired Oxygen 11/26/24 04:31 11/26/24 04:45 11/26/24 04:46 Temperature Pulse Rate 114 H 108 H 108 H Respiratory Rate 19 20 18 Blood Pressure 162/111 H 158/98 H Pulse Oximetry 100 98 99 Oxygen Delivery Oxygen Flow Rate Fraction of Inspired Oxygen 11/26/24 05:00 11/26/24 05:01 11/26/24 05:15 Temperature Pulse Rate 108 H 104 H 99 Respiratory Rate 16 24 H 15 Blood Pressure 124/87 Pulse Oximetry 96 95 98 Oxygen Delivery Oxygen Flow Rate Fraction of Inspired Oxygen 11/26/24 05:16 11/26/24 05:30 11/26/24 05:31 Temperature Pulse Rate 113 H 100 110 H Respiratory Rate 23 H 24 H 24 H Blood Pressure 123/87 120/102 H Pulse Oximetry 98 91 92 Oxygen Delivery Oxygen Flow Rate Fraction of Inspired Oxygen 11/26/24 05:45 11/26/24 05:46 11/26/24 06:00 Temperature Pulse Rate 110 H 106 H 100 Respiratory Rate 18 21 H 18 Blood Pressure 144/99 H Pulse Oximetry 96 96 96 Oxygen Delivery Oxygen Flow Rate Fraction of Inspired Oxygen 11/26/24 06:01 11/26/24 06:15 11/26/24 06:16 Temperature Pulse Rate 103 H 103 H 98 Respiratory Rate 19 18 27 H Blood Pressure 143/105 H 129/97 H Pulse Oximetry 95 97 97 Oxygen Delivery Oxygen Flow Rate Fraction of Inspired Oxygen 11/26/24 06:30 11/26/24 06:31 11/26/24 06:45 Temperature Pulse Rate 115 H 116 H 118 H Respiratory Rate 21 H 23 H 25 H Blood Pressure 144/108 H Pulse Oximetry 91 Oxygen Delivery Oxygen Flow Rate Fraction of Inspired Oxygen 11/26/24 06:47 11/26/24 07:00 11/26/24 07:01 Temperature Pulse Rate 108 H 115 H 111 H Respiratory Rate 24 H 24 H 24 H Blood Pressure 84/69 L 126/85 Pulse Oximetry 97 Oxygen Delivery Oxygen Flow Rate Fraction of Inspired Oxygen 11/26/24 07:16 11/26/24 07:31 11/26/24 10:00 Temperature Pulse Rate 109 H 110 H 98 Respiratory Rate 20 18 Blood Pressure 118/87 140/95 H Pulse Oximetry 97 94 Oxygen Delivery Oxygen Flow Rate Fraction of Inspired Oxygen 11/26/24 10:00 11/26/24 12:00 11/26/24 12:00 Temperature 36.5 C Pulse Rate 116 H Respiratory Rate 20 Blood Pressure 151/113 H Pulse Oximetry 90 97 93 Oxygen Delivery Nasal Cannula Nasal Cannula Oxygen Flow Rate 4 4 Fraction of Inspired Oxygen 11/26/24 12:00 11/26/24 14:00 11/26/24 15:49 Temperature Pulse Rate 84 107 H Respiratory Rate Blood Pressure Pulse Oximetry 90 Oxygen Delivery Nasal Cannula Oxygen Flow Rate 5 Fraction of Inspired Oxygen 11/26/24 16:00 11/26/24 16:00 11/26/24 17:16 Temperature 35.8 C L Pulse Rate 102 H 118 H 100 Respiratory Rate 24 H Blood Pressure 152/111 H Pulse Oximetry 94 91 Oxygen Delivery CPAP Oxygen Flow Rate Fraction of Inspired Oxygen 11/26/24 18:00 11/26/24 18:00 11/26/24 18:15 Temperature Pulse Rate 78 94 Respiratory Rate 19 Blood Pressure Pulse Oximetry 97 97 Oxygen Delivery BiPAP BiPAP Oxygen Flow Rate Fraction of Inspired Oxygen 35 11/26/24 19:37 Temperature 36.3 C L Pulse Rate 85 Respiratory Rate 19 Blood Pressure 131/75 Pulse Oximetry 96 Oxygen Delivery Oxygen Flow Rate Fraction of Inspired Oxygen Exam Narrative: GEN: Large 64 year old man, BiPAP mask in place, patient resting, not in distress. HEENT: pupils are equal, EOMI, symmetrical face NECK: Trachea is midline CHEST: Equal air entry, symmetric excursion, clear breath sounds anteriorly, decreased in bases CV: Distant regular S1S2 ABD : (+) bowel sounds Extremities : no clubbing, no cyanosis, (+) edema in LE and torso PSYCH: sleeping Results Laboratory Findings 11/27/24 08:38 11/27/24 08:38 ABG, PT/INR, D-dimer: ABG ABG pH 7.264 (7.350-7.450) L* 11/26/24 06:36 ABG pCO2 61.2 mmHg (35.0-45.0) H* 11/26/24 06:36 ABG pO2 70.1 mmHg (80.0-100.0) L 11/26/24 06:36 ABG O2 Saturation 91.3 % (95.0-100.0) L 11/26/24 06:36 PT/INR, D-dimer PT 15.3 Seconds (11.1-14.7) H 11/26/24 03:53 INR 1.2 11/26/24 03:53 Abnormal lab findings: Abnormal Labs 11/26/24 11/26/24 11/26/24 03:53 06:36 11:50 MCHC 28.9 L RDW 17.0 H [place] % (Auto) 9.3 H [place] # (Auto) 0.8 H Absolute Nucleated RBC 0.030 H Nucleated RBC % 0.4 H PT 15.3 H ABG pH 7.264 L* ABG pCO2 61.2 H* ABG pO2 70.1 L ABG HCO3 27.1 H ABG O2 Saturation 91.3 L Carboxyhemoglobin 2.2 H Reduced Hemoglobin 7.4 H Carbon Dioxide 35 H BUN 22 H D Glucose 121 H POC Capillary Glucose 148 H AST 62 H Alkaline Phosphatase 128 H NT-Pro-B Natriuret Pep 3790 H 11/26/24 11/26/24 16:25 21:34 MCHC RDW [place] % (Auto) [place] # (Auto) Absolute Nucleated RBC Nucleated RBC % PT ABG pH ABG pCO2 ABG pO2 ABG HCO3 ABG O2 Saturation Carboxyhemoglobin Reduced Hemoglobin Carbon Dioxide BUN Glucose POC Capillary Glucose 174 H 167 H AST Alkaline Phosphatase NT-Pro-B Natriuret Pep
[2024-11-27] VITALS (24 sets, daily range): BP systolic 103–151; BP diastolic 70–94; PULSE 54–118; RESP 18–27; TEMP 36.1–36.8; O2SAT 86–99
[2024-11-27 04:57] LABS: Alveolar/Arterial O2 Gradient 57.4 mmHg; Carboxyhemoglobin 1.8 % THb (0-2.0); Fractional Inspired Oxygen 35 %; HCO3 ABG 35.6 mEq/l (22.0-26.0); Methemoglobin ABG 0.1 %THb (0-1.5); Oxygen Content ABG 20.0 %vol (16.0-22.0); Oxygen Saturation ABG 94.5 % (95.0-100.0); PO2 ABG 88.9 mmHg (80.0-100.0); PO2 FiO2 Ratio Arterial Blood 2.54 %; Reduced Hemoglobin 3.7 %THb (0-5.0)
[2024-11-27 05:01] LABS: Modified Allen's Test Pass; Non-Invasive Vent Rate 16 /MIN; PCO2 ABG 88.8 mmHg (35.0-45.0); Site Drawn RIGHT RADIAL
[2024-11-27] MEDS: cefTRIAXone 2 GM in SODIUM CHLORIDE 0.9% IV 100 ML 200 ML IVPB (05:20)
--- NOTE | 2024-11-27 05:38 | P.PNCROSS_ITS ---
Event Note Event Note Event Note: Respiratory therapy brought me the patient's ABG results. Pulmonology had orde red ABG to evaluate response to AVAPS. Patient's pH was only minimally decreased compared to yesterday and pCO2 minimally increased from yesterday. I did increase the background rate on the patient's AVAPS to 18. Otherwise will defer further AVAPS adjustments to pulmonology service. Nursing staff tells me the patient is otherwise stable and in no respiratory distress. The patient is not encephalopathic or acutely decompensated from baseline.
[2024-11-27] MEDS: AZITHROMYCIN IV 500 MG in SODIUM CHLORIDE 0.9% IV 250 ML IVPB (06:04)
--- NOTE | 2024-11-27 08:00 | PC.NURSE ---
PT answers orientation questions appropriately but is constantly taking off monitor, oxygen/bipap, and purewick. PT has taken off monitor and thrown it against the wall where it broke the back piece off and disconnected the battery and leads. PT desats quickly and turns red/purple quickly. PT educated frequently on purpose of monitor and necessity for oxygen at this time. Pt verbally agrees to leave it on but begins to take everything off again.
[2024-11-27] MEDS: SERTRALINE HCL 50 MG TABLET PO (08:07)
[2024-11-27] MEDS: FUROSEMIDE 40 MG TABLET PO ×2 (08:07→16:16)
[2024-11-27] MEDS: predniSONE 40 MG, predniSONE 10 MG 50 MG PO (08:07)
[2024-11-27] MEDS: APIXABAN 5 MG TABLET PO ×2 (08:07→20:34)
[2024-11-27] MEDS: guaiFENesin 12 HR 600 MG TABCR 1200 MG PO ×2 (08:07→20:34)
[2024-11-27 08:44] LABS: Hematocrit 54.2 % (42.0-52.0); Hemoglobin 15.0 g/dL (14.0-18.0); Mean Corpuscular HGB Conc 27.7 g/dl (32-36); Mean Corpuscular Hemoglobin 27.1 pg (26-34); Mean Corpuscular Volume 98.0 fl (80-100); Platelet Count Result 228 k/mm3 (150-375); Red Blood Count 5.53 M/mm3 (4.6-6.20); White Blood Count 12.9 K/mm3 (4.5-10.0)
[2024-11-27] MEDS: UMECLIDINIUM/VILANTEROL 62.5-25 MCG ELLIPTA 1 PUFF INHALATION (08:46)
[2024-11-27 09:03] LABS: Anion Gap 8 mmol/L (4-12); Blood Urea Nitrogen 24 mg/dL (9-20); Calcium 8.7 mg/dL (8.4-10.2); Carbon Dioxide 31 mmol/L (22-30); Chloride 98 mmol/L (98-107); Estimated CRCL calculation 154 ml/min; Estimated Glomerular Filt Rate > 60; Glucose 139 mg/dL (65-110); Potassium 5.1 mmol/L (3.4-5.0); Sodium 137 mmol/L (137-145)
--- NOTE | 2024-11-27 09:47 | PM.IMPN ---
Progress Note: A&P Assessment and Plan (1) COPD exacerbation: Code(s): J44.1 - Chronic obstructive pulmonary disease with (acute) exacerbation Status: Acute Assessment and Plan: -Likely combination of Pneumonia/COPD exacerbation and underlying obesity hypoventilation syndrome. -currently on non-rebreather at 15 liters/minute - Xopenex and Atrovent. -continue guaifenesin -S/P Solu-Medrol 125 mg IV x1 -prednisone 40 mg for 5 days -Advised Smoking cessation and Weight loss -CT scan performed on 07/22 shows mild bibasilar atelectasis or scaring otherwise clear lungs -patient do not want hospital BiPAP admission agrees to wear BiPAP from his home (2) KATIE (obstructive sleep apnea): Code(s): G47.33 - Obstructive sleep apnea (adult) (pediatric) Status: Acute Assessment and Plan: Non compliant with BiPAP (3) HLD (hyperlipidemia): Qualifiers: Hyperlipidemia type: unspecified Qualified Code(s): E78.5 - Hyperlipidemia, unspecified Code(s): E78.5 - Hyperlipidemia, unspecified Status: Acute Assessment and Plan: Order lipid panel (4) Atrial fibrillation with RVR: Code(s): I48.91 - Unspecified atrial fibrillation Status: Acute Assessment and Plan: Continue apixaban 5 mg p.o. b.i.d. (5) Essential hypertension: Code(s): I10 - Essential (primary) hypertension Status: Acute Assessment and Plan: Continue lisinopril 40 mg p.o. q.d. Continue furosemide 40 mg p.o. b.i.d. Continue amlodipine 10 mg p.o. q.d. (6) Type 2 diabetes mellitus: Qualifiers: Diabetes mellitus complication status: without complication Diabetes mellitus custodial insulin use: without intermediate teacher use Qualified Code(s): E11.9 - Type 2 diabetes mellitus without complications Code(s): E11.9 - Type 2 diabetes mellitus without complications Status: Acute Assessment and Plan: Will start on sliding scale Titrate as needed Plan Code status full code DVT prophylaxis Eliquis 5 mg p.o. b.i.d. Subjective Date/time seen: 11/27/24 09:47 Interval history: Patient is more oriented today. Patient is compliant with his BiPAP. He reports feeling better Review of Systems Review of Systems: All systems are reviewed and are negative unless stated otherwise in the HPI. Exam Narrative: General: Alert, awake, afebrile, in moderate respiratory distress, morbidly obese. HEENT: PERRL, no rhinorrhea, no post nasal drip, oropharynx clear. Neck: Trachea midline, no JVD, no lymphadenopathy. Cardiovascular: Tachycardic with regular rhythm, no murmurs, rubs or gallops, no peripheral edema. Respiratory: Diffuse inspiratory and expiratory wheezing bilaterally, tachypnea, moderate respiratory distress. Abdomen: Soft, nontender, nondistended, no rebound, no guarding, no peritoneal signs. Musculoskeletal: No joint swelling or deformity, normal muscle tone. Skin: No rashes or petechia, no signs of infection. Psychiatric: Alert and oriented, normal behavior and judgment for situation. Neurological: Alert and oriented to person, place, and time. Follows all commands. No focal deficits, speech is clear and fluent. Objective Data Vital Signs Vital Signs: Vital Signs - 24 hr 11/26/24 10:00 11/26/24 10:00 11/26/24 12:00 Temperature 97.7 F Pulse Rate 98 116 H Respiratory Rate 20 Blood Pressure 151/113 H Pulse Oximetry 90 97 Oxygen Delivery Nasal Cannula Oxygen Flow Rate 4 Fraction of Inspired Oxygen 11/26/24 12:00 11/26/24 12:00 11/26/24 14:00 Temperature Pulse Rate 84 107 H Respiratory Rate Blood Pressure Pulse Oximetry 93 Oxygen Delivery Nasal Cannula Oxygen Flow Rate 4 Fraction of Inspired Oxygen 11/26/24 15:49 11/26/24 16:00 11/26/24 16:00 Temperature 96.5 F L Pulse Rate 102 H 118 H Respiratory Rate 24 H Blood Pressure 152/111 H Pulse Oximetry 90 94 Oxygen Delivery Nasal Cannula Oxygen Flow Rate 5 Fraction of Inspired Oxygen 11/26/24 17:16 11/26/24 18:00 11/26/24 18:00 Temperature Pulse Rate 100 78 Respiratory Rate Blood Pressure Pulse Oximetry 91 97 Oxygen Delivery CPAP BiPAP Oxygen Flow Rate Fraction of Inspired Oxygen 35 11/26/24 18:15 11/26/24 19:37 11/26/24 20:00 Temperature 97.4 F L Pulse Rate 94 85 Respiratory Rate 19 19 Blood Pressure 131/75 Pulse Oximetry 97 96 96 Oxygen Delivery BiPAP BiPAP Oxygen Flow Rate Fraction of Inspired Oxygen 35 11/26/24 20:00 11/26/24 21:25 11/26/24 22:00 Temperature Pulse Rate 94 94 101 H Respiratory Rate 18 Blood Pressure Pulse Oximetry 93 Oxygen Delivery BiPAP Oxygen Flow Rate Fraction of Inspired Oxygen 11/27/24 00:00 11/27/24 00:00 11/27/24 00:00 Temperature 97.5 F L Pulse Rate 93 97 Respiratory Rate 19 Blood Pressure 147/94 H Pulse Oximetry 99 94 Oxygen Delivery BiPAP Oxygen Flow Rate Fraction of Inspired Oxygen 35 11/27/24 01:45 11/27/24 02:00 11/27/24 02:46 Temperature Pulse Rate 110 H Respiratory Rate Blood Pressure Pulse Oximetry 95 97 Oxygen Delivery Nasal Cannula BiPAP Oxygen Flow Rate 4 Fraction of Inspired Oxygen 35 11/27/24 03:48 11/27/24 04:00 11/27/24 04:00 Temperature 97.9 F Pulse Rate 94 94 Respiratory Rate 18 Blood Pressure 151/82 H Pulse Oximetry 93 94 Oxygen Delivery BiPAP Oxygen Flow Rate Fraction of Inspired Oxygen 35 11/27/24 04:44 11/27/24 06:00 11/27/24 07:42 Temperature 96.9 F L Pulse Rate 54 L 105 H 106 H Respiratory Rate 18 22 H Blood Pressure 131/74 Pulse Oximetry 95 96 Oxygen Delivery BiPAP Oxygen Flow Rate Fraction of Inspired Oxygen Intake/Output Intake/Output: Intake & Output 11/24/24 11/25/24 11/26/24 11/27/24 23:59 23:59 23:59 23:59 Intake Total 740 240 Output Total 500 1500 Balance 240 -1260 Meds/Results Medications: Active Medications Generic Name Dose Route Start Last Admin Trade Name Freq PRN Reason Stop Dose Admin Acetaminophen 650 mg 11/26/24 14:25 11/26/24 14:46 Acetaminophen 325 Mg Tablet PO 650 mg Q6H PRN Administration Mild Pain (1-3) or Fever Apixaban 5 mg 11/26/24 21:00 11/27/24 08:07 Apixaban 5 Mg Tablet PO 5 mg Q12HR EDMUNDO Administration Dextrose 12.5 gm 11/26/24 16:15 Dextrose 50% 25 Gm/50 Ml Syringe IV PUSH PRN PRN Hypoglycemia Protocol Furosemide 40 mg 11/26/24 17:00 11/27/24 08:07 Furosemide 40 Mg Tablet PO 40 mg BID EDMUNDO Administration Glucagon 1 mg 11/26/24 16:15 Glucagon For Inj 1 Mg Vial IM PRN PRN Hypoglycemia Protocol Glucose 15 gm 11/26/24 16:15 Glucose Oral Gel 15 Gm Of Glucse In 37.5 Gm Tube PO PRN PRN Hypoglycemia Protocol Guaifenesin 1,200 mg 11/26/24 21:00 11/27/24 08:07 Guaifenesin 12 Hr 600 Mg Tabcr PO 1,200 mg Q12HR EDMUNDO Administration Ceftriaxone Sodium 2 gm/ 100 mls @ 200 mls/hr 11/27/24 05:00 11/27/24 05:20 Sodium Chloride IVPB 200 mls/hr Q24H EDMUNDO Administration Azithromycin 500 mg/ Sodium 250 mls @ 250 mls/hr 11/27/24 06:00 11/27/24 06:04 Chloride IVPB 250 mls/hr Q24H EDMUNDO Administration Dextrose 1,000 mls @ 100 mls/hr 11/26/24 16:15 Dextrose 5% 1,000 Ml IVPB PRN PRN Hypoglycemia Protocol Insulin Aspart 3 - 6 units 11/26/24 17:00 11/26/24 17:19 Insulin Aspart (*Bkc) 100 Units/Ml SUB-Q Not Given TIDWM [facility] Protocol Insulin Aspart 1 - 3 units 11/26/24 21:00 11/26/24 21:37 Insulin Aspart (*Bkc) 100 Units/Ml SUB-Q Not Given HS [facility] Protocol Levalbuterol HCl 1.25 mg 11/26/24 16:13 11/27/24 08:46 Levalbuterol Neb 1.25 Mg/3 Ml INHALATION 1.25 mg Q4HRT PRN Administration Shortness Of Breath Or Wheezing Lisinopril 40 mg 11/27/24 09:00 11/27/24 08:07 Lisinopril 20 Mg Tablet PO 40 mg DAILY EDMUNDO Administration Prednisone 40 mg/ Prednisone 50 mg 11/27/24 08:00 11/27/24 08:07 10 mg PO 50 mg DAILY@0800 EDMUNDO Administration Sertraline HCl 50 mg 11/27/24 09:00 11/27/24 08:07 Sertraline Hcl 50 Mg Tablet PO 50 mg DAILY EDMUNDO Administration Umeclidinium/Vilanterol 1 puff 11/27/24 08:00 11/27/24 08:46 Umeclidinium/Vilanterol 62.5-25 Mcg Ellipta INHALATION 1 puff DAILYRT EDMUNDO Administration Radiology Results: ITS Impressions Chest X-Ray 11/26/24 12:56 Impression: CHF Labs Labs: Laboratory Results - last 24 hr 11/26/24 11/26/24 11/26/24 11:50 16:25 21:34 WBC RBC Hgb Hct MCV MCH MCHC RDW Plt Count MPV Puncture Site ABG pH ABG pCO2 ABG pO2 ABG PO2/FiO2 Ratio ABG HCO3 ABG O2 Saturation ABG O2 Content ABG Base Excess A-a Gradient Oxyhemoglobin Carboxyhemoglobin Methemoglobin Reduced Hemoglobin Total Hemoglobin O2 Delivery Device O2 Liters/Min Vent Rate FiO2 Expiratory Pressure Inspiratory Pressure Sodium Potassium Chloride Carbon Dioxide Anion Gap BUN Creatinine Estim Creat Clear Calc Estimated GFR Glucose POC Capillary Glucose 148 H 174 H 167 H Calcium 11/27/24 11/27/24 04:47 08:38 WBC 12.9 H RBC 5.53 Hgb 15.0 Hct 54.2 H MCV 98.0 MCH 27.1 MCHC 27.7 L RDW 17.1 H Plt Count 228 MPV 9.4 Puncture Site Right radial ABG pH 7.221 L* ABG pCO2 88.8 H* ABG pO2 88.9 ABG PO2/FiO2 Ratio 2.54 ABG HCO3 35.6 H ABG O2 Saturation 94.5 L ABG O2 Content 20.0 ABG Base Excess 4.4 A-a Gradient 57.4 Oxyhemoglobin 94.4 Carboxyhemoglobin 1.8 Methemoglobin 0.1 Reduced Hemoglobin 3.7 Total Hemoglobin 15.0 O2 Delivery Device Non-invasive vent O2 Liters/Min Not Reportable Vent Rate 16 FiO2 35 Expiratory Pressure Not Reportable Inspiratory Pressure Not Reportable Sodium 137 Potassium 5.1 H Chloride 98 Carbon Dioxide 31 H Anion Gap 8 BUN 24 H Creatinine 0.79 Estim Creat Clear Calc 154 Estimated GFR > 60 Glucose 139 H POC Capillary Glucose Calcium 8.7 Hospitalist MIPS Advance Care Plan I have confirmed that the patient's Advanced Care Plan is present, code status is documented, or surrogate decision maker is listed in patient medical record.: Yes Medication Reconciliation I have utilized all available resources to obtain, update and review the patients current medications (includes all prescriptions, OTC, herbals, cannabis, and nutritional supplements).: Yes
[2024-11-27] MEDS: METOPROLOL TARTRATE 25 MG TABLET PO (20:35)
[2024-11-27 23:10] LABS: Alveolar/Arterial O2 Gradient 76.6 mmHg; Fractional Inspired Oxygen 40 %; HCO3 ABG 35.6 mEq/l (22.0-26.0); Oxygen Content ABG 19.7 %vol (16.0-22.0); Oxygen Saturation ABG 97.4 % (95.0-100.0); PO2 ABG 115.3 mmHg (80.0-100.0); PO2 FiO2 Ratio Arterial Blood 2.88 %
[2024-11-27 23:15] LABS: Modified Allen's Test Pass; PCO2 ABG 81.1 mmHg (35.0-45.0); Site Drawn LEFT RADIAL
[2024-11-28] VITALS (53 sets, daily range): BP systolic 48–146; BP diastolic 26–101; PULSE 66–120; RESP 19–75; TEMP 36.1–37.2; O2SAT 87–100
--- NOTE | 2024-11-28 00:29 | PCRCNOTE ---
ABG ordered, collected and discussion between patient and Dr Jones about severely negative outcomes of noncompliance with BiPAP, he chooses to become DNR/DNI; ABG results: pH:7.26, CO2:81.1, O2:115.3, HCO3:35.6, BE:5.4; placed on AVAPS via V60 with FFM XLg; continually removes nasal cannula, BiPAP mask and/or monitor leads; growing more confused as the night goes on. RT visited room for patient removing BiPAP mask approximately 10 times to replace it or place on cannula.
--- NOTE | 2024-11-28 00:43 | PC.NURSE ---
Called daughter to inform her that patient has made himself a DNR/DNI and refusing to wear Bipap. No answer, left voicemail.
--- NOTE | 2024-11-28 04:35 | P.PNCROSS_ITS ---
Event Note Event Note Event Note: 11/27/2024 at 23:00 Nursing staff called because the patient has chronic hypercapnic respiratory failure was not keeping his AVAPS on. Nurses were worried about the patient's respiratory status as he appears cyanotic. I went to evaluate the patient at the time that I arrived at the patient's bedside he was holding his BiPAP and trying to put it back on again. I a.m. managed to reposition the patient's BiPAP although he would only tell me to ?get out of my face.? After a reposition the patient's BiPAP he was pulling adequate tidal volumes. He states he does not like the machine because it causes too much pressure. I discussed with the patient that if he did not leave the BiPAP on his respiratory status was going to worsen and he with require intubation. Intubation was discussed with patient in detail including the process of innovation and being placed on a ventilator. The patient stated that he would not want to be intubated if he could not breathe. He verbalized that he he would if he could not breathe. He stated that if he he did not want his heart to be restarted. The patient was alert oriented x4 prior to initiation of this conversation. So I change the patient's code status to DNR and encourage patient to leave the AVAPS in place. The wood grinder operator had just rounded on the patient and I discussed the patient's case with wood grinder operator. Nursing staff then came to talk to me at around 04:00 and stated that they called the patient's daughter after my initial evaluation the patient in updated her as to the patient's behavior and decision to be made a DNR. The patient's daughter was upset with the situation and called into the patient's room to discuss the situation with the patient. Then around 04:00 when the nursing staff went back in because the patient had removed his AVAPS again and had pulled out 3 IVs. The patient seemed to be having some intermittent episodes of confusion and would be confused when he would wake up. When he was then awake he would be oriented. He was desatting without BiPAP. At that time the patient stated that he did want to be resuscitated if he could not breathe on his own. The patient's oxygen saturations improved with supplemental oxygen. But he refused to be transferred to the ICU Nursing staff tried to re-educate the patient again about his respiratory status. He was adamant that he was ?breathing fine on his own? and was refusing intubation or IV placement. The patient then refused to put his AVAPS back on. He stated that we were lying to him when we told them that his home BiPAP would not provide adequate support. The patient is making it difficult to provide adequ ate care. Even with multiple attempts by myself and nursing staff to educate the patient. The I have requested that nursing staff called the patient's daughter to see if she can reason with the patient to allow transfer to the ICU and intubation. Currently the patient is alert oriented x4 making it difficult for me to make the patient to be intubated without his consent. I a suspect the patient may have some underlying personality disorder which is causing difficulty in compliance with treatment. I did go re-evaluate the patient 1 more time I which time I found the patient again trying to remove his BiPAP. I a told him in a direct manner that he was not breathing adequately and that if he wanted further care he needed to allow the nurses to place an IV and that the only viable option was to be intubated. At that time the patient agreed to intubation. As I was leaving the room he tried to again debate the issue but at this time I do not feel the patient is consistently coherent enough at this point to continue debating his care. He was much more alert oriented during my 1st evaluation around 23:00 GENERAL: Morbidly obese, appears older than stated age, acutely ill-appearing HEENT: violaceous skin tone involving the entire face, concerning for cyanosis, redundant folds of subcutaneous fat make fitting the patient's AVAPS difficult, AVAPS continuing the slides up the patient's face CARDIOVASCULAR: Irregularly irregular, intermittently mildly tachycardic, distant heart sounds RESPIRATORY: Markedly decreased breath sounds, no increased work of breathing ABDOMEN: Morbidly obese, distended INTEGUMENT: Chronic venous stasis changes bilateral lower extremities, violaceous skin tone to the face NEUROLOGIC: Initially alert orient x4 and seemed to be somewhat responsive to Education, Waxing and waning neurologic status that is worsened throughout the night, no localizing neurologic deficits noted during conversation PSYCHIATRIC: Uncooperative, difficult to redirect, poor insight EXTREMITIES: Chronic venous stasis changes bilateral lower extremities : Deferred Acute on chronic hypercapnic respiratory failure --due to a combination of COPD and obesity hypoventilation non compliant with noninvasive ventilator--patient has been intubated. Patient has been started on AC/CMV tidal volume 460 peep of 8 rate of 22, 100% FiO2. Will continue patient on Rocephin and azithromycin previously ordered. Will stop prednisone and change patient to Solu-Medrol 40 mg IV q.6 hours. Patient had been transferred to the ICU the scale agent has been consulted and will evaluate patient in presume care at shift change. Will order daily ABGs and serial chest x-rays. Unfortunately due to the patient's body habitus the patient is likely going to be very difficult for potential extubation in the future. post innovation ABG was reviewed and demonstrated stable PH compared to any ABG performed around 23:30 I suspect that the patient had likely developed wo rsening hypercapnia and hypoxia given is noncompliant with the BiPAP in given his declining neurologic status in between. His pCO2 was 98. I gave orders to increase the tidal volume to 470 and to drop the patient's FiO2 down to 40%. I did continue peep of 8 given the patient's body habitus he may require somewhat higher PEEP for adequate ventilation. Will defer further ventilator adjustments to scale agent. Condition: Critical Long-term prognosis: Guarded Between the multiple evaluations and conversations with the patient nursing staff orders in time spent at bedside and exclusion of procedures 135 minute spent in critical care activities. Due to a high probability of clinically significant, life threatening deterioration, the patient required my highest level of preparedness to intervene emergently and I personally spent this critical care time directly and personally managing the patient. This critical care time included obtaining a history; examining the patient; pulse oximetry; ordering and review of studies; arranging urgent treatment with development of a management plan; evaluation of patient's response to treatment; frequent reassessment; and discussions with other providers. It was exclusive of separately billable procedures and treating other patients and teaching time. Please see Assessment and Plan section and the rest of the note for further information on patient assessment and treatment.
--- NOTE | 2024-11-28 05:02 | PC.NURSE ---
Patient changed to full code. Witnessed by Margarita VELOZ and Dr. Jones.
--- NOTE | 2024-11-28 05:08 | PC.NURSE ---
0504 This RN spoke with patient's daughter, Ruthy. Ruthy made aware of patient change of condition and plan to be intubated. Ruthy states if patient were unable to make his own decisions, she wants him to remain a full code.
--- NOTE | 2024-11-28 05:15 | PC.NURSE ---
This patient, Aman Newberry, was received from [facility] on 11/28/24 at 0515. Report received from ORSELIA Phillip. Patient/family oriented to unit policies and routines
[2024-11-28] MEDS: ETOMIDATE 20 MG/10 ML AMPUL 60 MG IV PUSH (05:27)
[2024-11-28] MEDS: ROCURONIUM BROMIDE 50 MG/5 ML VIAL 80 MG IV PUSH (05:28)
[2024-11-28] MEDS: PROPOFOL IV EMULSION 100 ML 6.69 MG IV CONT (05:38)
--- NOTE | 2024-11-28 05:50 | WPDPROCEDUR ---
Procedures Intubation Intubation Date: 11/28/24 Intubation Time: 05:40 Consent: Patient was having progressive respiratory failure and was noncompliant with BiPAP. Patient stated he was not ready to and requested intubation. A pre-procedural Time-Out was completed immediately before starting the procedure and confirmed: Patient Identification, Site, Procedure, Patient Position and the Availability of Requisite Equipment: Yes Sedative: etomidate Mg given: 60 Paralytic: rocuronium Mg given: 80 Laryngoscope: fiber optic video scope Assist device used: fiber optic device ET tube size: 8 Tube secured depth (cm): 28 Tube secured location: lips Tube placement confirmation: visualized tube passing through cords, equal breath sounds bilaterally, no breath sounds over epigastrium and confirmation by capnometry Patient tolerated procedure: well Intubation complications: difficult intubation Additional comments: Patient was intubated using fiberoptic scope. Initially ET tube was only admits to 25 cm but patient did not have color change despite seeing the tube past the cords. It is presumed that we pulled the stylet ET tube became dislodged. Subsequently ET tube was retracted and 2nd attempt was made. There was successful placement of ET tube on 2nd attempt with color change on end-tidal CO2 monitor, equal breath sounds. Chest x-ray was reviewed and personally interpreted. ET tube was only 1 cm from the evelyn subsequently ET tube was pulled back 2 cm. Chest x-ray was not repeated. A patient intubation was difficult only by patient's body habitus he was difficult to get the glide scope in the patient's mouth and soft tissue caused some crowding.
[2024-11-28 06:26] LABS: Alveolar/Arterial O2 Gradient 203.1 mmHg; Fractional Inspired Oxygen 100 %; HCO3 ABG 37.0 mEq/l (22.0-26.0); Oxygen Content ABG 21.1 %vol (16.0-22.0); Oxygen Saturation ABG 99.8 % (95.0-100.0); PO2 ABG 428.5 mmHg (80.0-100.0); PO2 FiO2 Ratio Arterial Blood 4.28 %
[2024-11-28 06:35] LABS: Arterial Blood Gas Tidal Volume 450 ml; Arterial Blood Gas Ventilator rate 22 /MIN; Modified Allen's Test Pass; PCO2 ABG 81.4 mmHg (35.0-45.0); Site Drawn LEFT RADIAL
[2024-11-28] MEDS: SODIUM CHLORIDE 0.9% IV 1,000 ML 999 ML IV CONT (06:38)
[2024-11-28] MEDS: PHENYLEPHRINE 1,000 MCG/10 ML SYRINGE 200 MCG IV PUSH (07:00)
[2024-11-28] MEDS: NOREPINEPHRINE 8 MG/D5W 250 ML 8 MG/250 ML BAG 56.25 MG IV CONT (07:00)
[2024-11-28] MEDS: MIDAZOLAM HCL (*CRX) 2 MG/2 ML VIAL IV PUSH ×2 (07:05→07:11)
[2024-11-28] MEDS: FENTANYL 2,500MCG/NS250ML(*CRX 2,500 MCG/250 ML BAG IV CONT (07:10)
[2024-11-28] MEDS: MIDAZOLAM 100MG/NS 100ML(*CRX) 100 MG/100 ML BAG IV CONT (07:10)
[2024-11-28] MEDS: ROCURONIUM BROMIDE 50 MG/5 ML VIAL IV PUSH (07:10)
[2024-11-28] MEDS: ALBUTEROL SULFATE NEB 2.5 MG/3 ML INH 15 MG INHALATION (07:12)
[2024-11-28] MEDS: ALBUTEROL SULFATE NEB 2.5 MG/3 ML INH 10 MG (07:13)
[2024-11-28] MEDS: LIDOCAINE 1% PF INJ 5 ML VIAL INFILTRATE (07:15)
--- NOTE | 2024-11-28 08:16 | PC.NURSE ---
0523 Patient received 10mg IVP Etomidate 0527 Patient received 30mg IVP Etomidate 0528 Patient received 80mg IVP Rocuronium 0530 Patient intubated with a size 8 ETT, no color change seen. ET tube removed and patient bagged. 0531 Patient received 20mg IVP Etomidate. 0532 Patient intubated with size 8 ETT, color change seen. ETT 26 at the lip.
[2024-11-28] MEDS: MINERAL OIL/WHITE PETROLATUM OINTMENT 1 APPLIC EACH EYE ×2 (09:00→20:12)
[2024-11-28] MEDS: VANCOMYCIN 1,250 MG/NS 250 ML 1,250 MG/250 ML BAG 166.67 MG IVPB ×2 (09:00→12:06)
--- NOTE | 2024-11-28 09:02 | WPDCNINT ---
Assessment and Plan Assessment and plan (1) Acute on chronic respiratory failure with hypoxia and hypercapnia: Code(s): J96.21 - Acute and chronic respiratory failure with hypoxia; J96.22 - Acute and chronic respiratory failure with hypercapnia Status: Acute Assessment and Plan: 11/26: Patient was admitted for increasing/worsening dyspnea 1 day prior to admission. Patient was in the intermediate Unit, evaluated by pulmonology, has been noncompliant with his AVAPS/BiPAP. 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 Also was possibly delirious as he pulled out his IV lines and BiPAP mask. -was on propofol, dropped his blood pressures in the 40s systolic, propofol infusion were discontinued -currently on CMV mode of ventilation, 100% FiO2 and peep of 8, I to E ratio 1 to 2 -ABGs reviewed, 7.27/81/428/37/99%. Tidal volume 450, rate of 22, peep of 8, 100% FiO2. Increased tidal volumes to 500, decreased rate to 20, peep at 8, I to E ratio 1-3.5 -11/28: chest x-ray showed increased zinc consolidation on the left side with volume loss in left hemithorax, could be related to atelectasis versus pneumonia -started patient on Pulmozyme and Mucomyst nebs -schedule Xopenex, continue Anoro Ellipta -will add Pulmicort -chest PT has been ordered -pulmonology is following the patient, he may need a bronchoscopy -Sedated with Versed and fentanyl infusion, maintain RASS of 0 to -2. Daily SAT and SBT (2) COPD exacerbation: Code(s): J44.1 - Chronic obstructive pulmonary disease with (acute) exacerbation Status: Acute Assessment and Plan: Hypercapnic respiratory failure with elevated pCO2 level -started patient on scheduled Solu-Medrol, -continue bronchodilators as above (3) Pneumonia: Code(s): J18.9 - Pneumonia, unspecified organism Status: Acute Assessment and Plan: Chest x-ray shows consolidation, likely pneumonia, -11/28: sputum cultures have been ordered -patient on cefepime, vancomycin and azithromycin (4) Hypotension: Code(s): I95.9 - Hypotension, unspecified Status: Acute Assessment and Plan: Patient dropped his blood pressure is likely related to propofol infuse and positive-pressure ventilation -required phenylephrine push -started on Levophed -wean Levophed to maintain MAP > 65 mmHg or SBP > 100 mmHg for adequate end organ perfusion (5) Atrial fibrillation with RVR: Code(s): I48.91 - Unspecified atrial fibrillation Status: Acute Assessment and Plan: Patient has a history of AFib with RVR, currently rate controlled but remains in atrial fibrillation -continue Eliquis (6) Type 2 diabetes mellitus: Qualifiers: Diabetes mellitus service attendant insulin use: without service attendant use Diabetes mellitus complication status: without complication Qualified Code(s): E11.9 - Type 2 diabetes mellitus without complications Code(s): E11.9 - Type 2 diabetes mellitus without complications Status: Acute Assessment and Plan: Accu-Cheks and sliding scale insulin (7) Essential hypertension: Code(s): I10 - Essential (primary) hypertension Status: Acute Assessment and Plan: Patient is hypotensive, will hold lisinopril and metoprolol (8) KATIE (obstructive sleep apnea): Code(s): G47.33 - Obstructive sleep apnea (adult) (pediatric) Status: Acute Assessment and Plan: Non compliant with his CPAP/AVAPS -currently intubated (9) Edema of abdominal wall: Code(s): R60.0 - Localized edema Status: Acute Assessment and Plan: Edema of the abdominal wall on the left side likely related to dependent edema as patient fevers to lay on that side Plan DVT prophylaxis: Apixaban Stress ulcer prophylaxis: Protonix Nutrition: NPO for now Code Status: Full code Critical Care Time Spent: 77 minutes Discussed with patient's daughter and updated her with patient's condition and plan of care. She is aware that patient is intubated on full vent support, hypotensive requiring her blood pressure medications. She is also aware that he is receiving antibiotics. She did state that his quality of life is very poor and he is mostly bedbound. I discussed code status but she continues to request to keep him a full code. Due to a high probability of clinically significant, life threatening deterioration, the patient required my highest level of preparedness to intervene emergently and I personally spent this critical care time directly and personally managing the patient. This critical care time included obtaining a history; examining the patient; pulse oximetry; ordering and review of studies; arranging urgent treatment with development of a management plan; evaluation of patient's response to treatment; frequent reassessment; and discussions with other providers. It was exclusive of separately billable procedures and treating other patients and teaching time. Please see Assessment and Plan section and the rest of the note for further information on patient assessment and treatment This dictation may have been done utilizing a voice recognition system. Attempts have been made to correct errors. However, there may be uncorrected grammatical, spelling, and recognitions errors present. Assistant Director Of Residence Life Consult Note Consult date: 11/28/24 Reason for consult: Acute hypoxic and hypercapnic respiratory failure since, hypotension/shock, pneumonia, COPD exacerbation, noncompliance HPI: Aman Newberry is a 64 year old male with past medical history obesity hypoventilation syndrome, obstructive sleep apnea, type 2 diabetes, COPD, noncompliant with CPAP, essential hypertension, hyperlipidemia presented the ED on 11/26/2024 with complains of dyspnea which had been worsening since 1 day prior to admission., in the ER patient was noted to be hypoxic in the ED on room air, he does not normally wear oxygen at home just BiPAP at night for his obstructive sleep apnea. He denies any chest, nausea, vomiting, abdominal pain, no fevers or chills. He he was treated with IV Solu-Medrol and DuoNebs and placed on supplemental oxygen with improvement in O2 sats to 96% on 6 L nasal cannula. Was started on antibiotics with ceftriaxone and azithromycin for possible pneumonia/COPD exacerbation. Patient was was admitted to the intermediate Unit, pulmonology evaluated the patient, he was supposed to be on AVAPS at home but did not cooperate with home health to allow them to set up the device at his house. He also did not follow up with the digital press operator and their office. Patient was last admitted for COPD exacerbation in July 2024. 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 He was refusing to wear the via AVAPS/BiPAP, wanted to be a DNR. The new nursing staff call the daughter 0 discussed with the patient and made him a full code again. Patient also pulled out his IV lines and his AVAPS/BiPAP mask. He was also desaturating so decision was made to intubate the patient. Patient was intubated on the 2nd attempt. Difficult intubation likely due to body habitus and redundant tissue in the hypopharynx. Next was started on propofol infusion for sedation. 11/28/2024.: I saw the patient upon arrival early in the morning, patient was hypotensive with systolic blood pressures in the 40s, propofol infusion was held, patient was dyssynchronous with the ventilator with high peak pressures. Patient was given Versed 4 mg IV x1, rocuronium 50 mg IV x1, phenylephrine 100 mcg IV x1. Levophed was started. Blood pressures improved, Levophed being weaned. Patient was also given a L of IV fluid bolus. ETT was retracted 2 cm. NG tube was advised by 10 cm. Remains on CMV mode of ventilation, peep of 8, 100% FiO2. Review of Systems Review of Systems: ROS unobtainable: Yes unobtainable due to endotracheal tube, unobtainable due to medical condition and unobtainable due to mental status PMFSH Past Medical History Medical History Class 3 severe obesity with body mass index (BMI) of 60.0 to 69.9 in adult Chronic respiratory failure with hypoxia and hypercapnia On home O2 Eczema KATIE (obstructive sleep apnea) With prior sleep study in 2010 recommend a BiPAP of 25/ Type 2 diabetes mellitus COPD (chronic obstructive pulmonary disease) HLD (hyperlipidemia) Essential hypertension Surgical History Surgical History History of back surgery Status post surgery of both feet Family History Family History (Updated 11/26/24 @ 09:23 by Martha Garcia RN) Mother Hypertension Father Emphysema lung Social History Social History Smoking packs per day: 1.5 Smoking cigarettes per day: 30.0 Years smoked: 12 Smoking pack-years: 18.00 Smoking status: Former smoker Tobacco type: cigarettes Second hand tobacco smoke exposure: Yes Smoking end date: 03/16/14 Alcohol intake: never Substance use: never Substance use type: does not use Do You Feel Safe in your Home?: Yes Lack of Transportation: YES Lack of Food: Never True Current Housing: I Have Housing Concerned About Future Housing: No Difficulty Paying Gas/Electric Bills: No Difficulty Paying for Meds: No Currently Unemployed: No Education: Associate Degree Difficulty w/ Childcare or Family Care: No Spiritual care concerns: No Meds Home Medications and Allergies Home Medications ?Medication ?Instructions ?Recorded ?Confirmed ?Type andfnegj-hl-oohak 300 mcg-K 60 1 tablet PO DAILY 05/13/19 11/26/24 History mcg-lycop 600 mcg-lutein 300 mcg tablet (Centrum Silver Men) Held on 11/26/24. Instructions: Patient no longer taking sertraline 50 mg tablet 50 mg PO DAILY #90 tabs 11/14/19 11/26/24 Rx amlodipine 10 mg tablet 10 mg PO DAILY #90 tabs 03/02/20 11/26/24 Rx Held on 11/26/24. Instructions: Patient no longer taking lisinopril 40 mg tablet See Rx Instructions .Route 01/01/22 11/26/24 Rx .COMPLEX #30 tabs metformin 1,000 mg tablet 1,000 mg PO BID 07/20/24 11/26/24 History apixaban 5 mg tablet (Eliquis) 5 mg PO Q12HR #30 tabs 07/24/24 11/26/24 Rx Held on 11/26/24. Instructions: Patient no longer taking bacitracin 500 unit/gram topical 1 applic topical Q12HR #30 grams 07/24/24 11/26/24 Rx ointment Held on 11/26/24. Instructions: Patient no longer taking furosemide 40 mg tablet 40 mg PO BID #30 tabs 07/24/24 11/26/24 Rx guaifenesin 600 mg tablet, 1,200 mg (2 x 600 mg) PO Q12HR #30 07/24/24 11/26/24 Rx extended release 12 hr (Mucus tabs Relief ER) levalbuterol HCl 1.25 mg/3 mL 1.25 mg (3 mL) inhalation Q4HRT 07/24/24 11/26/24 Rx solution for nebulization PRN shortness of breath or wheezing #30 mL umeclidinium 62.5 mcg-vilanterol 1 inh inhalation DAILY #60 ea 07/24/24 11/26/24 Rx 25 mcg/actuation powdr for inhalation (Anoro Ellipta) Allergies Allergy/AdvReac Type Severity Reaction Status Date / Time tramadol AdvReac urinary Verified 11/26/24 11:11 retention Vital Signs Vital Signs - 24 hr 11/27/24 10:00 11/27/24 11:58 11/27/24 12:00 Temperature Pulse Rate 115 H 108 H Respiratory Rate Blood Pressure Pulse Oximetry 90 Oxygen Delivery Nasal Cannula Oxygen Flow Rate 3 Fraction of Inspired Oxygen 11/27/24 12:00 11/27/24 13:45 11/27/24 13:45 Temperature 98.3 F Pulse Rate 104 H 94 107 H Respiratory Rate 20 27 H 27 H Blood Pressure 103/76 Pulse Oximetry 91 95 Oxygen Delivery BiPAP Oxygen Flow Rate Fraction of Inspired Oxygen 11/27/24 14:00 11/27/24 16:00 11/27/24 16:00 Temperature 97.3 F L Pulse Rate 100 76 Respiratory Rate 20 Blood Pressure 112/70 Pulse Oximetry 97 95 Oxygen Delivery BiPAP Oxygen Flow Rate Fraction of Inspired Oxygen 11/27/24 16:00 11/27/24 18:00 11/27/24 20:00 Temperature 97.4 F L Pulse Rate 106 H 109 H 94 Respiratory Rate 19 Blood Pressure 110/71 Pulse Oximetry 99 Oxygen Delivery Oxygen Flow Rate Fraction of Inspired Oxygen 11/27/24 20:00 11/27/24 20:35 11/27/24 21:30 Temperature Pulse Rate 102 H 91 Respiratory Rate 20 Blood Pressure Pulse Oximetry 94 98 Oxygen Delivery BiPAP BiPAP Oxygen Flow Rate Fraction of Inspired Oxygen 11/27/24 22:00 11/28/24 00:00 11/28/24 00:00 Temperature 98.7 F Pulse Rate 84 91 Respiratory Rate 22 H Blood Pressure 119/64 Pulse Oximetry 87 L 94 Oxygen Delivery BiPAP Oxygen Flow Rate Fraction of Inspired Oxygen 11/28/24 00:00 11/28/24 02:00 11/28/24 03:56 Temperature 97.5 F L Pulse Rate 98 92 109 H Respiratory Rate 28 H Blood Pressure 146/96 H Pulse Oximetry 100 Oxygen Delivery Oxygen Flow Rate Fraction of Inspired Oxygen 11/28/24 04:00 11/28/24 04:00 11/28/24 05:30 Temperature Pulse Rate 98 105 H Respiratory Rate 19 Blood Pressure 103/81 Pulse Oximetry 94 100 Oxygen Delivery BiPAP Oxygen Flow Rate Fraction of Inspired Oxygen 11/28/24 05:32 11/28/24 05:33 11/28/24 05:38 Temperature Pulse Rate 103 H 120 H 99 Respiratory Rate 20 22 H Blood Pressure 106/84 Pulse Oximetry 100 100 Oxygen Delivery Mechanical Ventilation Oxygen Flow Rate Fraction of Inspired Oxygen 100 11/28/24 05:40 11/28/24 05:45 11/28/24 06:00 Temperature Pulse Rate 99 94 Respiratory Rate 22 H Blood Pressure 94/63 L Pulse Oximetry 100 Oxygen Delivery Mechanical Ventilation Oxygen Flow Rate Fraction of Inspired Oxygen 50 11/28/24 06:00 11/28/24 06:08 11/28/24 06:11 Temperature 97 F L Pulse Rate 94 92 94 Respiratory Rate 22 H 20 22 H Blood Pressure 120/93 H Pulse Oximetry 100 Oxygen Delivery Oxygen Flow Rate Fraction of Inspired Oxygen 11/28/24 06:14 11/28/24 06:15 11/28/24 06:30 Temperature 99 F Pulse Rate 96 92 103 H Respiratory Rate 21 H 24 H Blood Pressure 121/98 H Pulse Oximetry 100 100 Oxygen Delivery Mechanical Ventilation Oxygen Flow Rate Fraction of Inspired Oxygen 40 11/28/24 06:30 11/28/24 06:30 11/28/24 06:35 Temperature 99 F Pulse Rate 77 73 Respiratory Rate 22 H 22 H Blood Pressure 58/28 L Pulse Oximetry 99 Oxygen Delivery Oxygen Flow Rate Fraction of Inspired Oxygen 50 11/28/24 06:50 11/28/24 07:00 11/28/24 07:03 Temperature 99 F Pulse Rate 77 81 82 Respiratory Rate 22 H 24 H Blood Pressure 48/26 L 80/41 L Pulse Oximetry 97 Oxygen Delivery Oxygen Flow Rate Fraction of Inspired Oxygen 11/28/24 07:10 11/28/24 07:10 11/28/24 07:13 Temperature Pulse Rate 82 88 84 Respiratory Rate 22 H 22 H 20 Blood Pressure Pulse Oximetry Oxygen Delivery Oxygen Flow Rate Fraction of Inspired Oxygen 11/28/24 07:21 11/28/24 08:51 Temperature Pulse Rate 84 Respiratory Rate Blood Pressure 129/100 H Pulse Oximetry Oxygen Delivery Mechanical Ventilation Oxygen Flow Rate Fraction of Inspired Oxygen 40 Exam Narrative: General: Significantly obese gentleman, currently intubated, sedated in no acute distress at this time since he received rocuronium HEENT:? Pupils equal and reactive, sclera is injected, ETT in place Neck:? Thick and short neck Respiratory:? Decreased air entry bilaterally Lt > Rt, expiratory wheezing, rales on left middle and lower lobe region, breath sounds are distant Chest: Left breast is larger than the right, indurated, warm and erythematous compared to the right side Cardiac:? Distant heart sounds, irregularly irregular Abdomen:? Morbidly obese, indurated and form on the left side with pitting edema, right side is softer with less edema, according the os daughter patient prefers to lay on the left side, causing possible dependent edema and swelling Extremities:? Trace edema bilateral lower extremities, palpable pedal pulses Neuro:? Patient is intubated, sedated, received dose of rocuronium, does not open his eyes or follow simple commands Skin:? Bruising noted on upper extremities, torso, chronic venous stasis changes on bilateral lower extremity Psych:? Unable to assess at this time Results Labs 11/27/24 08:38 11/27/24 08:38 Labs: BMP 11/27/24 08:38 Sodium 137 Potassium 5.1 H Chloride 98 Carbon Dioxide 31 H BUN 24 H Creatinine 0.79 Glucose 139 H Calcium 8.7 Quality VTE Prophylaxis VTE prophylaxis: pharmacologic ordered Hospitalist [facility] Advance Care Plan I have confirmed that the patient's Advanced Care Plan is present, code status is documented, or surrogate decision maker is listed in patient medical record.: Yes Medication Reconciliation I have utilized all available resources to obtain, update and review the patients current medications (includes all prescriptions, OTC, herbals, cannabis, and nutritional supplements).: Yes
[2024-11-28] MEDS: PANTOPRAZOLE SODIUM IV 40 MG VIAL IV PUSH (10:00)
[2024-11-28] MEDS: BUDESONIDE RESPULE NEB 0.5 MG/2 ML AMP INHALATION ×2 (10:25→20:11)
[2024-11-28] MEDS: DORNASE ALFA INH SOLN 1 MG/ML 2.5 ML AMP 2.5 MG INHALATION ×2 (10:26→19:56)
[2024-11-28] MEDS: ACETYLCYSTEINE 20% INHAL SOLN 800 MG/4 ML VIAL 200 MG INHALATION ×3 (10:26→20:10)
--- NOTE | 2024-11-28 10:54 | PCRCNOTE ---
Unable to do CPT due to line being placed.
--- NOTE | 2024-11-28 11:28 | WPDPROCEDUR ---
Procedures Central Line Placement Right IJ: Central Line Date: 11/28/24 Central Line Time: 11:04 Discussed w/ the patient/family/POA,the placement of a central venous catheter, including its clinical necessity/indication & associated potential risks, benifits and alternatives.: Yes The patient/family/POA understand(s) and acknowledge(s) the need to proceed with central venous catheter insertion as an important element of the patient's clinical management.: Yes Consent: I have discussed with the patient and/or surrogate, the non-emergent placement of a central venous catheter, including its clinical necessity/indication and associated potential risks and complications. The patient and/or surrogate understand(s) and acknowledge(s) the need to proceed with central venous catheter insertion as an important element of the patient's clinical management. Time Out Performed: Yes Patient Position: supine Patient placed on monitor/pulse ox: Yes Provider Prep: mask, sterile gown, sterile gloves, Max. sterile barrier precautions, cap and hand hygiene with conventional soap/water or alcohol based hand rub Central line prep: 2% Chlorhexidine scrub Local anesthesia used: lidocaine 1% Amount of anesthesia used (ml): 3 Sterile US Technique with sterile gel/sterile probe covers: Yes Central line lumen inserted: triple Divehi: 7 Length (cm): 16 Depth of Insertion (cm): 16 Post Procedure: sutured in place, good blood return, all ports aspirated, flushed, capped, transparent dressing, hemostatic product, antimicrobial product, securement product and aseptic technique maintained throughout procedure Post procedure x-ray: tip of catheter in good position and no pneumothorax seen Patient tolerated procedure: well Complications: none
--- NOTE | 2024-11-28 11:34 | P.PCNBED_ITS ---
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
[2024-11-28] MEDS: AZITHROMYCIN IV 500 MG in SODIUM CHLORIDE 0.9% IV 250 ML IVPB (12:00)
[2024-11-28] MEDS: SERTRALINE HCL 50 MG TABLET PO (12:06)
[2024-11-28 12:27] LABS: Alveolar/Arterial O2 Gradient 128.3 mmHg; Fractional Inspired Oxygen 40 %; HCO3 ABG 37.3 mEq/l (22.0-26.0); Oxygen Content ABG 18.5 %vol (16.0-22.0); Oxygen Saturation ABG 92.2 % (95.0-100.0); PO2 ABG 71.0 mmHg (80.0-100.0); PO2 FiO2 Ratio Arterial Blood 1.77 %
[2024-11-28 12:29] LABS: PCO2 ABG 74.7 mmHg (35.0-45.0)
[2024-11-28 12:30] LABS: Modified Allen's Test Pass; Site Drawn ARTLINE
[2024-11-28 12:31] LABS: Arterial Blood Gas Tidal Volume 500 ml; Arterial Blood Gas Ventilator rate 20 /MIN
[2024-11-28] MEDS: APIXABAN 5 MG TABLET PO (12:42)
[2024-11-28 12:43] LABS: Hematocrit 45.5 % (42.0-52.0); Hemoglobin 13.0 g/dL (14.0-18.0); Immature Granulocyte Percent A 0.6 % (0-0.5); Lymphocytes Absolute Auto 0.65 K/mm3 (0.9-3.2); Mean Corpuscular HGB Conc 28.6 g/dl (32-36); Mean Corpuscular Hemoglobin 27.4 pg (26-34); Mean Corpuscular Volume 96.0 fl (80-100); Nucleated Red Blood Cells Absolute Auto 0.020 K/mm3 (0.0-0.012); Nucleated Red Blood Cells Perc 0.2 % (0.0-0.2); Platelet Count Result 181 k/mm3 (150-375); Red Blood Count 4.74 M/mm3 (4.6-6.20); White Blood Count 9.5 K/mm3 (4.5-10.0)
[2024-11-28 12:59] LABS: INR 1.4; Partial Thromboplastin Time 28.1 Seconds (22.3-36.8); Prothrombin Time 17.1 Seconds (11.1-14.7)
[2024-11-28 13:01] LABS: MRSA (PCR) DETECTED (NOT DETECTE)
[2024-11-28 13:05] LABS: Hypochromasia Occasional; Schistocytes None Seen
[2024-11-28 13:11] LABS: Alanine Aminotransferase 25 U/L (6-50); Albumin Level 3.0 g/dL (3.5-5.1); Alkaline Phosphatase 89 U/L (38-126); Anion Gap 2 mmol/L (4-12); Aspartate Amino Transferase 38 U/L (17-59); Bilirubin,Total 0.9 mg/dL (0.2-1.3); Blood Urea Nitrogen 33 mg/dL (9-20); Calcium 8.3 mg/dL (8.4-10.2); Carbon Dioxide 36 mmol/L (22-30); Chloride 96 mmol/L (98-107); Creatine Kinase 83 U/L (55-170); Estimated CRCL calculation 155 ml/min; Estimated Glomerular Filt Rate > 60; Glucose 156 mg/dL (65-110); Lipase 65 U/L (23-300); Magnesium 1.6 mg/dL (1.6-2.3); Potassium 4.5 mmol/L (3.4-5.0); Sodium 134 mmol/L (137-145); Total Protein 6.3 g/dL (6.3-8.2); Triglycerides 87 mg/dL (<150)
[2024-11-28] MEDS: CEFEPIME 2 GM in SODIUM CHLORIDE 0.9% IV 50 ML 100 ML IVPB ×2 (14:01→22:54)
[2024-11-28] MEDS: CENTRAL LINE FLUSH 10 ML IV PUSH ×2 (14:03→22:54)
[2024-11-28] MEDS: MAGNESIUM SULF 2 GM/WATER 50ML 2 GM/50 ML BAG IVPB (14:30)
[2024-11-28] MEDS: VANCOMYCIN 1,500 MG/NS 500 ML 1,500 MG/500 ML BAG 250 MG IVPB (20:12)
[2024-11-29] VITALS (54 sets, daily range): BP systolic 89–142; BP diastolic 49–90; PULSE 67–110; RESP 20–28; TEMP 36.3–37.2; O2SAT 87–99; BMI 64.7
[2024-11-29] MEDS: ACETYLCYSTEINE 20% INHAL SOLN 800 MG/4 ML VIAL 200 MG INHALATION ×4 (01:47→20:27)
[2024-11-29] MEDS: FENTANYL 2,500MCG/NS250ML(*CRX 2,500 MCG/250 ML BAG 10 MCG IV CONT (04:33)
[2024-11-29 05:14] LABS: Alveolar/Arterial O2 Gradient 207.8 mmHg; Carboxyhemoglobin 1.4 % THb (0-2.0); Fractional Inspired Oxygen 50 %; HCO3 ABG 33.9 mEq/l (22.0-26.0); Methemoglobin ABG 0.1 %THb (0-1.5); Oxygen Content ABG 19.6 %vol (16.0-22.0); Oxygen Saturation ABG 94.9 % (95.0-100.0); PO2 ABG 79.2 mmHg (80.0-100.0); PO2 FiO2 Ratio Arterial Blood 1.58 %; Reduced Hemoglobin 4.4 %THb (0-5.0)
[2024-11-29 05:18] LABS: PCO2 ABG 61.8 mmHg (35.0-45.0); Site Drawn ARTLINE
[2024-11-29 05:19] LABS: Arterial Blood Gas Tidal Volume 500 ml; Arterial Blood Gas Ventilator rate 22 /MIN
[2024-11-29 05:25] LABS: Hematocrit 46.9 % (42.0-52.0); Hemoglobin 13.8 g/dL (14.0-18.0); Immature Granulocyte Percent A 0.4 % (0-0.5); Lymphocytes Absolute Auto 0.66 K/mm3 (0.9-3.2); Mean Corpuscular HGB Conc 29.4 g/dl (32-36); Mean Corpuscular Hemoglobin 27.5 pg (26-34); Mean Corpuscular Volume 93.4 fl (80-100); Nucleated Red Blood Cells Absolute Auto 0.020 K/mm3 (0.0-0.012); Nucleated Red Blood Cells Perc 0.2 % (0.0-0.2); Platelet Count Result 190 k/mm3 (150-375); Red Blood Count 5.02 M/mm3 (4.6-6.20); White Blood Count 8.4 K/mm3 (4.5-10.0)
[2024-11-29 05:48] LABS: Alanine Aminotransferase 26 U/L (6-50); Albumin Level 3.3 g/dL (3.5-5.1); Alkaline Phosphatase 60 U/L (38-126); Anion Gap 3 mmol/L (4-12); Aspartate Amino Transferase 50 U/L (17-59); Bilirubin,Total 1.3 mg/dL (0.2-1.3); Blood Urea Nitrogen 34 mg/dL (9-20); Calcium 8.3 mg/dL (8.4-10.2); Carbon Dioxide 35 mmol/L (22-30); Chloride 96 mmol/L (98-107); Estimated CRCL calculation 166 ml/min; Estimated Glomerular Filt Rate > 60; Glucose 168 mg/dL (65-110); Magnesium 1.7 mg/dL (1.6-2.3); Potassium 5.7 mmol/L (3.4-5.0); Sodium 134 mmol/L (137-145); Total Protein 7.4 g/dL (6.3-8.2)
[2024-11-29] MEDS: CEFEPIME 2 GM in SODIUM CHLORIDE 0.9% IV 50 ML 100 ML IVPB ×3 (06:04→21:28)
[2024-11-29] MEDS: AZITHROMYCIN IV 500 MG in SODIUM CHLORIDE 0.9% IV 250 ML IVPB (06:29)
[2024-11-29] MEDS: CENTRAL LINE FLUSH 10 ML IV PUSH ×3 (06:30→21:28)
[2024-11-29 06:33] LABS: Anisocytosis Occasional; Hypochromasia 1+; Schistocytes None Seen
[2024-11-29 06:47] LABS: INR 1.5; Partial Thromboplastin Time 27.3 Seconds (22.3-36.8); Prothrombin Time 17.9 Seconds (11.1-14.7)
[2024-11-29] MEDS: INSULIN HUMAN REGULAR (*BKC) 100 UNITS/ML 10 UNITS IV PUSH (06:48)
[2024-11-29] MEDS: DEXTROSE 50% 25 GM/50 ML SYRINGE IV PUSH (06:48)
[2024-11-29] MEDS: ALBUTEROL SULFATE NEB 2.5 MG/3 ML INH 10 MG INHALATION (07:18)
[2024-11-29] MEDS: BUDESONIDE RESPULE NEB 0.5 MG/2 ML AMP INHALATION (08:15)
[2024-11-29] MEDS: DORNASE ALFA INH SOLN 1 MG/ML 2.5 ML AMP 2.5 MG INHALATION ×2 (08:29→20:32)
[2024-11-29] MEDS: SODIUM ZIRCONIUM CYCLOSILICATE 10 GM POWD.PACK FEED TUBE (09:21)
[2024-11-29] MEDS: PANTOPRAZOLE SODIUM IV 40 MG VIAL IV PUSH (09:21)
[2024-11-29] MEDS: FUROSEMIDE INJ 100 MG/10 ML VIAL 80 MG IV PUSH (09:21)
[2024-11-29] MEDS: MINERAL OIL/WHITE PETROLATUM OINTMENT 1 APPLIC EACH EYE ×2 (09:21→20:37)
[2024-11-29] MEDS: VANCOMYCIN 1,500 MG/NS 500 ML 1,500 MG/500 ML BAG 250 MG IVPB ×2 (09:21→21:24)
[2024-11-29] MEDS: APIXABAN 5 MG TABLET PO ×2 (09:21→20:37)
--- NOTE | 2024-11-29 09:57 | P.PNPL_ITS ---
Progress Note: A&P Assessment and Plan (1) COPD (chronic obstructive pulmonary disease): Qualifiers: COPD type: COPD with acute exacerbation Qualified Code(s): J44.1 - Chronic obstructive pulmonary disease with (acute) exacerbation Code(s): J44.9 - Chronic obstructive pulmonary disease, unspecified Status: Acute Assessment and Plan: Regarding his COPD the patient smoked tobacco from age 14 to current at 1 pack per day for total of 50 pack years. last cigarette the day of admission on 07/20/2024. The patient tells me he had PFTs many years ago and was told that he has COPD. PFTS years ago, diagnosed with COPD. He uses no oxygen at rest or with activity. He is maintained on Lev-albuterol, ANoro is on his medication list, not sure if he is using it. He uses O2 more as p.r.n. than according to instructions. He has chronic hypercarbic respiratory failure from his COPD. On 07/24/2024 he was discharged with a home noninvasive ventilator to be set up through [facility] but he failed to follow-up with them a failed to follow-up in the Pulmonary Clinic.He has not been using BiPAP at night.He did not allow DME to set up his AVAPS. 11/28/24: Patient now intubated being treated for COPD exacerbation and pneumonia. He has no wheezing. Plan: i will decrease his Solu-Medrol from 40 IV Q 6-20 IV q.6. Continue ipratropium 0.5 q.6, levalbuterol 1.25 q.6. Patient has possible mucus plugging and will continue guaifenesin 1200 mg p.o. q.12 hours, dornase 2.5 mg q.12 hours for total of 6 doses and acetylcysteine nebulized q.6 hours. MRSA swab is positive. Continue vancomycin, cefepime and azithromycin. I will perform bronchoscopy later today to remove any mucus from the left side. Discusse with family at bedside, Dr. Sneed. (2) Chronic respiratory failure with hypercapnia: Code(s): J96.12 - Chronic respiratory failure with hypercapnia Status: Acute Assessment and Plan: The patient has COPD with chronic hypercarbic respiratory failure. Previously blood gas on 4 L nasal cannula was 7.28/64/64. Initial serum bicarbonate was 38. Patient has chronic hypercarbic respiratory failure from his COPD. Patient would benefit from noninvasive ventilation to prevent further deterioration and subsequent hospitalizations. Patient was placed on BiPAP and he could not tolerate the pressures or flows and he had a continued respiratory acidosis on BiPAP rate of 22 and pressures 25/20. I recommend noninvasive ventilation with the AVAPS mode. 07/22/24: The patient wore the the noninvasive ventilator with the AVAPS mode with the settings as above but said he could not sleep and the nurses reminded him multiple times to stop pulling at the mask. He felt that this provided him lower pressure than his home machine. Patient had an overnight oximetry on these settings with recording duration of 7 hours and 26 minutes, average saturation 93%. Low saturation 82%, time with saturation less than or equal to 88% was 1 minute, oxygen desaturation index 2.9. ABG prior to removal was 7.30/68/80. Plan: The current noninvasive ventilation with the AVAPS mode provide an adequate ventilation and adequate oxygenation. I have completed an order form through [facility] for noninvasive ventilation with the IVAPS-AE mode: rate of 20, tidal volume 550, minimum EPAP 5, maximum EPAP 20, minimum pressure support 6, maximum pressure support 25 and 3 L bleed in. Will attempt to have this set up in the hospital tonight with an overnight oximetry and an ABG in the morning prior to removal to assess oxygenation and ventilation. [facility] [employer] is where the patient has facial impetigo and they will bring multiple masks to see if there is 1 that he can tolerate. These current settings are the maximal rate and tidal volume that will be tolerated and he will need to be discharged on these settings. 11/28/24: Patient intubated for respiratory failure. 11/29/24: Patient remains intubated, sedated and on Levophed. He is on CMV 20, tidal volume 500, 55% FiO2 and a PEEP of 8 with peak airway pressure is 34. He is afebrile. White blood cell count 8.4, creatinine 0.73. ABG 7.36/62/79. Chest x-ray with 80% whiteout of the left hemithorax with shift to the left with no change compared to yesterday. Yesterday was -412 mL, cumulative he is -1.2 L since admission. His weight is 216.5 kg. Patient is too large to fit in our CT scanner. Plan: Ventilatory management per child care lead teacher. Subjective Date/time seen: 11/29/24 09:57 Interval history: 11/27/2024: New pulmonary consult Aman Newberry is 64 years old, known to our service, has COPD and severe hypercapnia on BiPAP. He was brought to the ER for increasing shortness of breath. Dr Vasquez asked for a consult to manage his elevated pCO2. Dr Murray saw him when he was in the hospital in July this year. He was discharged on 07/24/2024, was supposed to be on AVAPS AE mode: rate 20, tidal volume 550, minimum EPAP 5, maximum EPAP 20, minimum pressure support 6, maximum pressure support 25, and 3 L bleed in. The patient was a candidate for a non-invasive ventilator, however would not answer the phone when the [email or web address] tried to contact him, and the patient did not follow up in the office. He is non compliant with medications. He did not follow-up in our office. 11/26/24; White blood cell count 8.2 , hemoglobin 14.4 grams/deciliter, robin tocrit 49.9%, platelets 212K, sodium 140, potassium 4.6, chloride 98, carbon dioxide 35, BUN 22, creatinine 0.86, glucose 121.11/26/24; CXR; Impression: CHF PMH: Obesity BMI 66; chronic hypercapnic hypoxemic respiratory failure on home oxygen 2 L, DM-II, HTN, depression, 11/28/24: Patient intubated for respiratory distress. 11/29/2024: Patient remains intubated and sedated with fentanyl 150, Versed 2. He is on norepinephrine 1 mcg. He is on CMV 20, tidal volume 500, 55% FiO2 and a PEEP of 8 with peak airway pressure is 34. He is afebrile. White blood cell count 8.4, creatinine 0.73. ABG 7.36/62/79. Chest x-ray with 80% whiteout of the left hemithorax with shift to the left with no change compared to yesterday. Yesterday was -412 mL, cumulative he is -1.2 L since admission. His weight is 216.5 kg. Patient is too large to fit in our CT scanner. DATA: Date :31 9136:36 144:47 11/1421:00 pH 7.23 7.26 7.22 7.26 pCO2 77 61 88.8 81 pO2 76 70 89 115 HCO3 31.8 27.1 35.6 35.6 sat 92% 91% 95% 96.7% CarboxyHgb FiO2 40% O2 delivery IPAP EPAP 5 07/21/24: Echo Summary 1. Technically suboptimal study due to poor sonographic images. 2. Definity contrast administered improved wall motion interpretation. 3. Left ventricular chamber dimension is moderately enlarged. 4. Left ventricular systolic function is normal, estimated at 60-65%. 5. There is mild concentric increased left ventricular wall thickness. 6. The left ventricular diastolic function is indeterminate as tissue doppler was not performed.. 7. Atrial fibrillation. 8. Left atrial chamber dimension is mildly enlarged. 9. Right atrial chamber dimension is moderately enlarged. 10. There is mild aortic valve sclerosis. Right Ventricle Right ventricular systolic function is normal based on a normal TAPSE 1.9 cm. Right ventricular chamber dimension is not well visualized. Right Atria Right atrial chamber dimension is moderately enlarged. 07/20/2024: CHEST RADIOGRAPH CLINICAL HISTORY: SOA . COMPARISON: None available TECHNIQUE: Single portable view of the chest. FINDINGS The cardiomediastinal silhouette is enlarged. The lungs are clear. IMPRESSION: No focal infiltrate or effusion. Review of Systems Review of Systems: ROS unobtainable: Yes unobtainable due to endotracheal tube Exam Const: General: comfortable and no acute distress Orientation/consciousness: oriented to person, oriented to place and oriented to time Other: morbid obesity HENMT: Head: normal to inspection Other: intubated and sedated Neck: Neck: normal visual inspection Chest: Chest palpation & inspection: normal inspection of the chest Resp: Effort & Inspection: normal respiratory effort and able to speak in complete sentences Auscultation: no crackles, no rales, no rhonchi, no wheezes and diminished lung sounds Other: obese, decreased left Cardio: Jugular venous distension: no JVD GI: Inspection: normal to inspection GI Palp: No abdominal tenderness Other: obese Skin: General skin exam: normal color Neuro: Other: sedated Extrem: General: normal to inspection Psych: Appearance: grossly normal Objective Data Vital Signs Vital Signs: Vital Signs - 24 hr 11/28/24 10:00 11/28/24 10:00 11/28/24 10:00 Temperature Pulse Rate 87 86 82 Respiratory Rate 20 20 Blood Pressure 88/57 L Pulse Oximetry 97 Oxygen Delivery Fraction of Inspired Oxygen 11/28/24 10:27 11/28/24 10:35 11/28/24 11:00 Temperature 36.6 C Pulse Rate 82 82 81 Respiratory Rate 20 20 Blood Pressure 86/58 L Pulse Oximetry 96 96 Oxygen Delivery Mechanical Ventilation Fraction of Inspired Oxygen 11/28/24 11:00 11/28/24 11:45 11/28/24 12:00 Temperature 36.6 C Pulse Rate 81 79 76 Respiratory Rate 20 20 Blood Pressure 113/70 103/65 Pulse Oximetry 90 Oxygen Delivery Fraction of Inspired Oxygen 11/28/24 12:00 11/28/24 12:00 11/28/24 12:00 Temperature Pulse Rate 80 Respiratory Rate 20 Blood Pressure Pulse Oximetry 91 Oxygen Delivery Mechanical Ventilation Fraction of Inspired Oxygen 45 45 11/28/24 12:00 11/28/24 12:29 11/28/24 12:33 Temperature Pulse Rate 76 80 Respiratory Rate Blood Pressure Pulse Oximetry 91 Oxygen Delivery Mechanical Ventilation Fraction of Inspired Oxygen 40 11/28/24 13:00 11/28/24 13:00 11/28/24 13:00 Temperature Pulse Rate 75 78 78 Respiratory Rate 22 H 22 H Blood Pressure 97/56 L 100/64 Pulse Oximetry 91 Oxygen Delivery Fraction of Inspired Oxygen 11/28/24 14:00 11/28/24 14:00 11/28/24 14:00 Temperature 36.6 C Pulse Rate 73 78 78 Respiratory Rate 22 H 22 H Blood Pressure 100/63 105/68 Pulse Oximetry 91 Oxygen Delivery Fraction of Inspired Oxygen 11/28/24 14:00 11/28/24 14:00 11/28/24 14:39 Temperature Pulse Rate 78 72 79 Respiratory Rate 22 H 22 H Blood Pressure Pulse Oximetry Oxygen Delivery Fraction of Inspired Oxygen 11/28/24 14:40 11/28/24 15:00 11/28/24 16:00 Temperature 36.6 C 36.4 C Pulse Rate 78 78 84 Respiratory Rate 20 20 Blood Pressure 117/68 100/68 Pulse Oximetry 91 91 90 Oxygen Delivery Mechanical Ventilation Fraction of Inspired Oxygen 11/28/24 16:00 11/28/24 16:00 11/28/24 16:00 Temperature Pulse Rate 79 79 72 Respiratory Rate 22 H 22 H Blood Pressure 104/61 Pulse Oximetry Oxygen Delivery Fraction of Inspired Oxygen 11/28/24 16:00 11/28/24 16:00 11/28/24 16:00 Temperature Pulse Rate 77 Respiratory Rate Blood Pressure Pulse Oximetry 92 Oxygen Delivery Mechanical Ventilation Fraction of Inspired Oxygen 40 40 11/28/24 17:00 11/28/24 17:11 11/28/24 18:00 Temperature 36.4 C Pulse Rate 79 82 82 Respiratory Rate 22 H 22 H Blood Pressure 119/69 Pulse Oximetry 90 92 Oxygen Delivery Mechanical Ventilation Fraction of Inspired Oxygen 11/28/24 18:00 11/28/24 18:00 11/28/24 18:00 Temperature 36.4 C Pulse Rate 79 82 85 Respiratory Rate 22 H 22 H Blood Pressure 123/68 104/57 L Pulse Oximetry 96 Oxygen Delivery Fraction of Inspired Oxygen 11/28/24 18:00 11/28/24 19:57 11/28/24 20:00 Temperature 36.2 C L Pulse Rate 86 75 73 Respiratory Rate 22 H 20 Blood Pressure 106/55 L Pulse Oximetry 91 Oxygen Delivery Fraction of Inspired Oxygen 11/28/24 20:00 11/28/24 20:00 11/28/24 20:00 Temperature Pulse Rate 75 75 Respiratory Rate 22 H 22 H Blood Pressure Pulse Oximetry Oxygen Delivery Fraction of Inspired Oxygen 40 11/28/24 20:00 11/28/24 20:00 11/28/24 20:00 Temperature Pulse Rate 73 70 73 Respiratory Rate Blood Pressure 106/55 L Pulse Oximetry 92 Oxygen Delivery Mechanical Ventilation Fraction of Inspired Oxygen 40 11/28/24 20:01 11/28/24 20:11 11/28/24 21:00 Temperature Pulse Rate 75 68 Respiratory Rate 75 H 22 H Blood Pressure 110/72 Pulse Oximetry 91 93 Oxygen Delivery Mechanical Ventilation Fraction of Inspired Oxygen 11/28/24 22:00 11/28/24 22:00 11/28/24 22:00 Temperature Pulse Rate 66 66 72 Respiratory Rate 22 H 22 H Blood Pressure Pulse Oximetry Oxygen Delivery Fraction of Inspired Oxygen 11/28/24 22:00 11/28/24 22:00 11/28/24 22:44 Temperature 36.2 C L Pulse Rate 70 70 70 Respiratory Rate 22 H Blood Pressure 110/72 98/52 L Pulse Oximetry 92 92 Oxygen Delivery Mechanical Ventilation Fraction of Inspired Oxygen 11/28/24 23:00 11/29/24 00:00 11/29/24 00:00 Temperature 36.3 C L Pulse Rate 70 67 70 Respiratory Rate 22 H 22 H 22 H Blood Pressure 104/56 L 96/54 L Pulse Oximetry 92 91 Oxygen Delivery Fraction of Inspired Oxygen 11/29/24 00:00 11/29/24 00:00 11/29/24 00:00 Temperature Pulse Rate 70 70 67 Respiratory Rate 22 H Blood Pressure Pulse Oximetry 91 Oxygen Delivery Mechanical Ventilation Fraction of Inspired Oxygen 40 11/29/24 00:00 11/29/24 00:00 11/29/24 01:00 Temperature 36.4 C Pulse Rate 67 81 Respiratory Rate 22 H Blood Pressure 109/58 L 106/65 Pulse Oximetry 92 Oxygen Delivery Fraction of Inspired Oxygen 40 11/29/24 01:48 11/29/24 01:57 11/29/24 02:00 Temperature Pulse Rate 80 80 75 Respiratory Rate 22 H Blood Pressure Pulse Oximetry 92 Oxygen Delivery Mechanical Ventilation Fraction of Inspired Oxygen 11/29/24 02:00 11/29/24 02:00 11/29/24 02:00 Temperature Pulse Rate 75 77 77 Respiratory Rate 22 H 22 H 22 H Blood Pressure 104/62 Pulse Oximetry 91 Oxygen Delivery Fraction of Inspired Oxygen 11/29/24 02:00 11/29/24 03:00 11/29/24 04:00 Temperature Pulse Rate 82 68 78 Respiratory Rate 22 H 22 H Blood Pressure 105/60 106/66 Pulse Oximetry 91 Oxygen Delivery Fraction of Inspired Oxygen 11/29/24 04:00 11/29/24 04:00 11/29/24 04:00 Temperature Pulse Rate 72 72 Respiratory Rate 22 H Blood Pressure Pulse Oximetry Oxygen Delivery Fraction of Inspired Oxygen 40 11/29/24 04:00 11/29/24 04:00 11/29/24 04:00 Temperature 36.4 C L Pulse Rate 90 72 86 Respiratory Rate 22 H 22 H Blood Pressure 108/57 L 103/52 L Pulse Oximetry 90 91 Oxygen Delivery Mechanical Ventilation Fraction of Inspired Oxygen 55 11/29/24 04:33 11/29/24 04:33 11/29/24 04:39 Temperature Pulse Rate 108 H 108 H 96 Respiratory Rate 22 H 22 H 22 H Blood Pressure Pulse Oximetry Oxygen Delivery Fraction of Inspired Oxygen 11/29/24 05:00 11/29/24 05:20 11/29/24 06:00 Temperature Pulse Rate 94 90 86 Respiratory Rate 22 H 22 H Blood Pressure 114/64 Pulse Oximetry 92 90 Oxygen Delivery Mechanical Ventilation Fraction of Inspired Oxygen 11/29/24 06:00 11/29/24 06:00 11/29/24 06:00 Temperature Pulse Rate 88 88 88 Respiratory Rate 22 H Blood Pressure 103/57 L Pulse Oximetry Oxygen Delivery Fraction of Inspired Oxygen 11/29/24 06:00 11/29/24 08:00 11/29/24 08:00 Temperature 36.6 C Pulse Rate 88 84 84 Respiratory Rate 22 H 22 H Blood Pressure 101/57 L 94/51 L Pulse Oximetry 92 Oxygen Delivery Fraction of Inspired Oxygen 11/29/24 08:00 11/29/24 09:22 11/29/24 09:39 Temperature Pulse Rate 84 94 95 Respiratory Rate 22 H Blood Pressure 89/57 L 103/65 Pulse Oximetry Oxygen Delivery Fraction of Inspired Oxygen Intake/Output Intake/Output: Intake & Output 11/26/24 11/27/24 11/28/24 11/29/24 23:59 23:59 23:59 23:59 Intake Total 740 1420 1737.5 389.5 Output Total 500 1950 1650 650 Balance 240 -530 87.5 -260.5 Meds/Results Medications: Active Medications Generic Name Dose Route Start Last Admin Trade Name Freq PRN Reason Stop Dose Admin Acetaminophen 650 mg 11/26/24 14:25 11/26/24 14:46 Acetaminophen 325 Mg Tablet PO 650 mg Q6H PRN Administration Mild Pain (1-3) or Fever Acetylcysteine 200 mg 11/28/24 08:55 11/29/24 08:16 Acetylcysteine 20% Inhal Soln 800 Mg/4 Ml Vial INHALATION 200 mg Q6HRT EDMUNDO Administration Apixaban 5 mg 11/26/24 21:00 11/29/24 09:21 Apixaban 5 Mg Tablet PO 5 mg Q12HR EDMUNDO Administration Budesonide 0.5 mg 11/28/24 08:00 11/29/24 08:15 Budesonide Respule Neb 0.5 Mg/2 Ml Amp INHALATION 0.5 mg Q12HRT EDMUNDO Administration Dextrose 12.5 gm 11/26/24 16:15 Dextrose 50% 25 Gm/50 Ml Syringe IV PUSH PRN PRN Hypoglycemia Protocol Dornase [place] 2.5 mg 11/28/24 08:00 11/29/24 08:29 Dornase [place] Inh Soln 1 Mg/Ml 2.5 Ml Amp INHALATION 11/30/24 20:01 2.5 mg Q12HRT EDMUNDO Administration Glucagon 1 mg 11/26/24 16:15 Glucagon For Inj 1 Mg Vial IM PRN PRN Hypoglycemia Protocol Glucose 15 gm 11/26/24 16:15 Glucose Oral Gel 15 Gm Of Glucse In 37.5 Gm Tube PO PRN PRN Hypoglycemia Protocol Azithromycin 500 mg/ Sodium 250 mls @ 250 mls/hr 11/27/24 06:00 11/29/24 08:02 Chloride IVPB Infused Q24H EDMUNDO Infusion Dextrose 1,000 mls @ 100 mls/hr 11/26/24 16:15 Dextrose 5% 1,000 Ml IVPB PRN PRN Hypoglycemia Protocol Fentanyl Citrate 2,500 mcg in 250 mls @ 15 mls/hr 11/28/24 06:55 11/29/24 08:00 Fentanyl 2,500 Mcg/Ns 250 Ml IV CONT 150 mcg/hr .[id number] EDMUNDO 15 mls/hr Protocol Titration 150 MCG/HR Midazolam HCl 100 mg in 100 mls @ 3 mls/hr 11/28/24 06:55 11/29/24 08:00 Versed 100 Mg/Ns 100 Ml IV CONT 2 mg/hr .[id number] EDMUNDO 2 mls/hr Protocol Titration 3 MG/HR Norepinephrine Bitartrate 8 mg in 250 mls @ 9.375 mls/hr 11/28/24 06:55 11/29/24 09:39 Levophed 8 Mg/D5w 250 Ml IV CONT 4 mcg/min .Q24H EDMUNDO 7.5 mls/hr Protocol Titration 5 MCG/MIN Cefepime HCl 2 gm/ Sodium 50 mls @ 100 mls/hr 11/28/24 14:00 11/29/24 06:04 Chloride IVPB 100 mls/hr Q8HR EDMUNDO Administration Vancomycin HCl 1,500 mg in 500 mls @ 250 mls/hr 11/28/24 21:00 11/29/24 09:21 Vancomycin 1,500 Mg/Ns 500 Ml IVPB 250 mls/hr Q12H EDMUNDO Administration Insulin Aspart 3 - 6 units 11/28/24 06:50 11/29/24 06:28 Insulin Aspart (*Bkc) 100 Units/Ml SUB-Q Not Given Q6HR EDMUNDO Protocol Ipratropium [place] 0.5 mg 11/29/24 08:00 11/29/24 07:20 Ipratropium Br 0.02% Inh Soln 0.5 Mg/2.5 Ml Vial INHALATION Not Given Q6HRT EDMUNDO Levalbuterol HCl 1.25 mg 11/28/24 07:40 11/29/24 07:20 Levalbuterol Neb 1.25 Mg/3 Ml INHALATION Not Given Q6H EDMUNDO Methylprednisolone Sodium Succinate 40 mg 11/28/24 07:40 11/29/24 06:04 Methylprednisolone Sod Succ 40 Mg Vial IV PUSH 40 mg Q6HR EDMUNDO Administration Multi-Ingred Cream/Lotion/Oil/Oint 1 applic 11/28/24 09:00 11/29/24 09:21 Mineral Oil/White Petrolatum Ointment EACH EYE 1 applic Q12HR EDMUNDO Administration Pantoprazole Sodium 40 mg 11/29/24 09:00 11/29/24 09:21 Pantoprazole Sodium Iv 40 Mg Vial IV PUSH 40 mg QAM EDMUNDO Administration Sertraline HCl 50 mg 11/27/24 09:00 11/28/24 12:06 Sertraline Hcl 50 Mg Tablet PO 50 mg On Hold: 11/29/24 08:16 DAILY EDMUNDO Administration Sodium Chloride 10 ml 11/28/24 14:00 11/29/24 06:30 Central Line Flush IV PUSH 10 ml Q8HR EDMUNDO Administration Sodium Chloride 20 ml 11/28/24 11:53 Central Line Flush IV PUSH PRN PRN after blood draws Radiology Results: ITS Impressions Chest X-Ray 11/29/24 08:15 IMPRESSION: 1. Lines and tubes in expected positions. 2. Persistent opacities throughout much of the left hemithorax which could represent atelectasis, pleural effusion, pneumonia or some combination thereof. 2. All major vascular with increased initial pattern in the right perihilar and lower lung zones which could represent mild pulmonary edema or pneumonia. Labs Labs: Laboratory Results - last 24 hr 11/28/24 11/28/24 11/28/24 11:39 11:58 12:24 WBC RBC Hgb Hct MCV MCH MCHC RDW Plt Count MPV Immature Gran % (Auto) Neut % (Auto) Lymph % (Auto) [place] % (Auto) Eos % (Auto) Baso % (Auto) Lymph # (Auto) [place] # (Auto) Eos # (Auto) Baso # (Auto) Abs Immat Gran (auto) Absolute Neuts (auto) Absolute Nucleated RBC Band Neutrophils % Nucleated RBC % Platelet Estimate Hypochromasia Anisocytosis Schistocytes PT INR APTT Puncture Site Artline ABG pH 7.316 L ABG pCO2 74.7 H* ABG pO2 71.0 L ABG PO2/FiO2 Ratio 1.77 ABG HCO3 37.3 H ABG O2 Saturation 92.2 L ABG O2 Content 18.5 ABG Base Excess 8.1 A-a Gradient 128.3 Oxyhemoglobin 92.6 Carboxyhemoglobin Methemoglobin Reduced Hemoglobin Total Hemoglobin 14.2 O2 Delivery Device Ventilator O2 Liters/Min Not Reportable Minute Volume Not Reportable Vent Rate 20 Vent Mode Cmv FiO2 40 Tidal Volume 500 PEEP 8 Peak Inspir Pressure Not Reportable Pressure Support Not Reportable Sodium Potassium Chloride Carbon Dioxide Anion Gap BUN Creatinine Estim Creat Clear Calc Estimated GFR Glucose POC Capillary Glucose 164 H Lactic Acid Calcium Phosphorus Magnesium Total Bilirubin AST ALT Alkaline Phosphatase Total Creatine Kinase Total Protein Albumin Triglycerides Lipase Nasal MRSA (PCR) Detected A* Urine Pneumococcal Ag 11/28/24 11/28/24 11/28/24 12:37 12:38 17:17 WBC 9.5 RBC 4.74 Hgb 13.0 L Hct 45.5 MCV 96.0 MCH 27.4 MCHC 28.6 L RDW 16.4 H Plt Count 181 MPV 9.2 Immature Gran % (Auto) 0.6 H Neut % (Auto) 90.6 H Lymph % (Auto) 6.8 L [place] % (Auto) 2.0 L Eos % (Auto) 0.0 Baso % (Auto) 0.0 L Lymph # (Auto) 0.65 L [place] # (Auto) 0.2 Eos # (Auto) 0.0 Baso # (Auto) 0.0 Abs Immat Gran (auto) 0.06 H Absolute Neuts (auto) 8.6 H Absolute Nucleated RBC 0.020 H Band Neutrophils % Not Reportable Nucleated RBC % 0.2 Platelet Estimate Adequate Hypochromasia Occasional Anisocytosis Schistocytes None seen PT 17.1 H INR 1.4 APTT 28.1 Puncture Site ABG pH ABG pCO2 ABG pO2 ABG PO2/FiO2 Ratio ABG HCO3 ABG O2 Saturation ABG O2 Content ABG Base Excess A-a Gradient Oxyhemoglobin Carboxyhemoglobin Methemoglobin Reduced Hemoglobin Total Hemoglobin O2 Delivery Device O2 Liters/Min Minute Volume Vent Rate Vent Mode FiO2 Tidal Volume PEEP Peak Inspir Pressure Pressure Support Sodium 134 L Potassium 4.5 Chloride 96 L Carbon Dioxide 36 H Anion Gap 2 L BUN 33 H Creatinine 0.79 Estim Creat Clear Calc 155 Estimated GFR > 60 Glucose 156 H POC Capillary Glucose 176 H Lactic Acid 1.0 Calcium 8.3 L Phosphorus 3.3 Magnesium 1.6 Total Bilirubin 0.9 AST 38 ALT 25 Alkaline Phosphatase 89 Total Creatine Kinase 83 Total Protein 6.3 Albumin 3.0 L Triglycerides 87 Lipase 65 Nasal MRSA (PCR) Urine Pneumococcal Ag Cancelled 11/28/24 11/29/24 11/29/24 23:40 05:07 05:10 WBC 8.4 RBC 5.02 Hgb 13.8 L Hct 46.9 MCV 93.4 MCH 27.5 MCHC 29.4 L RDW 16.8 H Plt Count 190 MPV 9.1 Immature Gran % (Auto) 0.4 Neut % (Auto) 88.4 H Lymph % (Auto) 7.9 L [place] % (Auto) 3.3 Eos % (Auto) 0.0 Baso % (Auto) 0.0 L Lymph # (Auto) 0.66 L [place] # (Auto) 0.3 Eos # (Auto) 0.0 Baso # (Auto) 0.0 Abs Immat Gran (auto) 0.03 Absolute Neuts (auto) 7.4 H Absolute Nucleated RBC 0.020 H Band Neutrophils % Not Reportable Nucleated RBC % 0.2 Platelet Estimate Adequate Hypochromasia 1+ Anisocytosis Occasional Schistocytes None seen PT INR APTT Puncture Site Artline ABG pH 7.357 ABG pCO2 61.8 H* ABG pO2 79.2 L ABG PO2/FiO2 Ratio 1.58 ABG HCO3 33.9 H ABG O2 Saturation 94.9 L ABG O2 Content 19.6 ABG Base Excess 6.2 A-a Gradient 207.8 Oxyhemoglobin 94.1 Carboxyhemoglobin 1.4 Methemoglobin 0.1 Reduced Hemoglobin 4.4 Total Hemoglobin 14.8 O2 Delivery Device Ventilator O2 Liters/Min Not Reportable Minute Volume Not Reportable Vent Rate 22 Vent Mode Cmv FiO2 50 Tidal Volume 500 PEEP 8 Peak Inspir Pressure Not Reportable Pressure Support Not Reportable Sodium 134 L Potassium 5.7 H Chloride 96 L Carbon Dioxide 35 H Anion Gap 3 L BUN 34 H Creatinine 0.73 Estim Creat Clear Calc 166 Estimated GFR > 60 Glucose 168 H POC Capillary Glucose 186 H Lactic Acid 1.5 Calcium 8.3 L Phosphorus 3.4 Magnesium 1.7 Total Bilirubin 1.3 AST 50 ALT 26 Alkaline Phosphatase 60 Total Creatine Kinase Total Protein 7.4 Albumin 3.3 L Triglycerides Lipase Nasal MRSA (PCR) Urine Pneumococcal Ag 11/29/24 11/29/24 06:21 06:26 WBC RBC Hgb Hct MCV MCH MCHC RDW Plt Count MPV Immature Gran % (Auto) Neut % (Auto) Lymph % (Auto) [place] % (Auto) Eos % (Auto) Baso % (Auto) Lymph # (Auto) [place] # (Auto) Eos # (Auto) Baso # (Auto) Abs Immat Gran (auto) Absolute Neuts (auto) Absolute Nucleated RBC Band Neutrophils % Nucleated RBC % Platelet Estimate Hypochromasia Anisocytosis Schistocytes PT 17.9 H INR 1.5 APTT 27.3 Puncture Site ABG pH ABG pCO2 ABG pO2 ABG PO2/FiO2 Ratio ABG HCO3 ABG O2 Saturation ABG O2 Content ABG Base Excess A-a Gradient Oxyhemoglobin Carboxyhemoglobin Methemoglobin Reduced Hemoglobin Total Hemoglobin O2 Delivery Device O2 Liters/Min Minute Volume Vent Rate Vent Mode FiO2 Tidal Volume PEEP Peak Inspir Pressure Pressure Support Sodium Potassium Chloride Carbon Dioxide Anion Gap BUN Creatinine Estim Creat Clear Calc Estimated GFR Glucose POC Capillary Glucose 180 H Lactic Acid Calcium Phosphorus Magnesium Total Bilirubin AST ALT Alkaline Phosphatase Total Creatine Kinase Total Protein Albumin Triglycerides Lipase Nasal MRSA (PCR) Urine Pneumococcal Ag
--- NOTE | 2024-11-29 10:31 | P.PNINT_ITS ---
Progress Note: A&P Assessment and Plan (1) Acute on chronic respiratory failure with hypoxia and hypercapnia: Code(s): J96.21 - Acute and chronic respiratory failure with hypoxia; J96.22 - Acute and chronic respiratory failure with hypercapnia Status: Acute Assessment and Plan: Acute on chronic respiratory failure secondary to multifactorial combination of COPD, obesity hypoventilation syndrome, left-sided pneumonia, pulmonary edema, atelectasis 11/26: Patient was admitted for increasing/worsening dyspnea 1 day prior to admission. Patient was in the intermediate Unit, evaluated by pulmonology, has been noncompliant with his AVAPS/BiPAP. 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 Also was possibly delirious as he pulled out his IV lines and BiPAP mask. -was on propofol, dropped his blood pressures in the 40s systolic, propofol infusion were discontinued currently sedated with Versed and fentanyl Currently on CMV mode of ventilation, 55% FiO2 and peep of 8 Decrease rate to 20 to prevent hypoventilation as patient is a chronic CO2 retainer at. Increase PEEP to 10. Chest x-ray shows a consolidation versus atelectasis versus combination of 2 on the left side. Patient is a too big for CT scanner hence unable to evaluate Discuss with pulmonology regarding bronchoscopy Discussed with nursing staff will plan to elevate left side with pillows Continue bronchodilators, Pulmozyme and Mucomyst nebs Continue chest PT has been ordered Currently on Solu-Medrol On a antibiotics for pneumonia, vanc cefepime and azithromycin Lasix IV (2) COPD exacerbation: Code(s): J44.1 - Chronic obstructive pulmonary disease with (acute) exacerbation Status: Acute Assessment and Plan: See above (3) Pneumonia: Code(s): J18.9 - Pneumonia, unspecified organism Status: Acute Assessment and Plan: See above (4) Hypotension: Code(s): I95.9 - Hypotension, unspecified Status: Acute Assessment and Plan: Patient dropped his blood pressure is likely related to propofol infuse and positive-pressure ventilation -required phenylephrine push and Levophed infusion Now off (5) Atrial fibrillation with RVR: Code(s): I48.91 - Unspecified atrial fibrillation Status: Acute Assessment and Plan: Patient has a history of AFib with RVR, currently rate controlled but remains in atrial fibrillation -continue Eliquis (6) Type 2 diabetes mellitus: Qualifiers: 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: without snf use Diabetes mellitus complication status: without complication Qualified Code(s): E11.9 - Type 2 diabetes mellitus without complications Code(s): E11.9 - Type 2 diabetes mellitus without complications Status: Acute Assessment and Plan: Accu-Cheks and sliding scale insulin (7) Essential hypertension: Code(s): I10 - Essential (primary) hypertension Status: Acute Assessment and Plan: Hold antihypertensive medications at this time (8) KATIE (obstructive sleep apnea): Code(s): G47.33 - Obstructive sleep apnea (adult) (pediatric) Status: Acute Assessment and Plan: Non compliant with his CPAP/AVAPS -currently intubated (9) Edema of abdominal wall: Code(s): R60.0 - Localized edema Status: Acute Assessment and Plan: Edema of the abdominal wall on the left side likely related to dependent edema as patient fevers to lay on that side Lasix (10) Hyperkalemia: Code(s): E87.5 - Hyperkalemia Status: Acute Assessment and Plan: Potassium level elevated Patient received Lokelma. I will also give Lasix. Repeat BMP ordered Plan DVT prophylaxis: Apixaban Stress ulcer prophylaxis: Protonix Nutrition: NPO for now. Start tube feeding today after bronchoscopy Code Status: Full code Critical Care Time Spent: 35 minutes Discussed with patient's daughter and sister updated them with patient's condition and plan of care. Overall patient has a guarded prognosis. We discussed code status. They will discuss among themselves and other family members before making any further decision. Due to a high probability of clinically significant, life threatening deterioration, the patient required my highest level of preparedness to intervene emergently and I personally spent this critical care time directly and personally managing the patient. This critical care time included obtaining a history; examining the patient; pulse oximetry; ordering and review of studies; arranging urgent treatment with development of a management plan; evaluation of patient's response to treatment; frequent reassessment; and discussions with other providers. It was exclusive of separately billable procedures and treating other patients and teaching time. Please see Assessment and Plan section and the rest of the note for further information on patient assessment and treatment This dictation may have been done utilizing a voice recognition system. Attempts have been made to correct errors. However, there may be uncorrected grammatical, spelling, and recognitions errors present. Subjective Date/time seen: 11/29/24 Overnight events reviewed. Afebrile Continues to be on mechanical ventilation 8 of PEEP and 55% FiO2 Off Levophed Continues to be sedated with Versed and fentanyl NPO Other Vitals acceptable Interval history: 64 years old with COPD and severe hypercapnia on BiPA and noncompliance. Admitted with respiratory failure. Failed AVAPS and intubated on 11/28/24. Chest x-ray shows whiteout of the left hemithorax with shift to the left with no change compared to yesterday. Morbidly obese and is too large to fit in our CT scanner. 07/21/24: Echo Summary 1. Technically suboptimal study due to poor sonographic images. 2. Definity contrast administered improved wall motion interpretation. 3. Left ventricular chamber dimension is moderately enlarged. 4. Left ventricular systolic function is normal, estimated at 60-65%. 5. There is mild concentric increased left ventricular wall thickness. 6. The left ventricular diastolic function is indeterminate as tissue doppler was not performed.. 7. Atrial fibrillation. 8. Left atrial chamber dimension is mildly enlarged. 9. Right atrial chamber dimension is moderately enlarged. 10. There is mild aortic valve sclerosis. Review of Systems Review of Systems: ROS unobtainable: Yes unobtainable due to endotracheal tube, unobtainable due to medical condition and unobtainable due to mental status Exam Narrative: General: Significantly obese gentleman, currently intubated, sedated in no acute distress HEENT:? Pupils equal and reactive, sclera is injected, ETT in place Neck:? Thick and short neck Respiratory:? Decreased air entry bilaterally Lt > Rt, expiratory wheezing, rales on left middle and lower lobe region, breath sounds are distant Chest: Left breast is larger than the right, indurated, warm and erythematous compared to the right side Cardiac:? Distant heart sounds, irregularly irregular Abdomen:? Morbidly obese, indurated and form on the left side with pitting edema, right side is softer with less edema, according the os daughter patient prefers to lay on the left side, causing possible dependent edema and swelling Extremities:? Trace edema bilateral lower extremities, palpable pedal pulses Neuro:? Patient is intubated, sedated, does not open his eyes or follow simple commands Skin:? Bruising noted on upper extremities, torso, chronic venous stasis changes on bilateral lower extremity Psych:? Unable to assess at this time Objective Data Vital Signs Vital Signs: Vital Signs - 24 hr 11/28/24 10:35 11/28/24 11:00 11/28/24 11:00 Temperature 36.6 C Pulse Rate 82 81 81 Respiratory Rate 20 20 Blood Pressure 86/58 L Pulse Oximetry 96 96 Oxygen Delivery Mechanical Ventilation Fraction of Inspired Oxygen 11/28/24 11:45 11/28/24 12:00 11/28/24 12:00 Temperature 36.6 C Pulse Rate 79 76 Respiratory Rate 20 Blood Pressure 113/70 103/65 Pulse Oximetry 90 Oxygen Delivery Fraction of Inspired Oxygen 45 11/28/24 12:00 11/28/24 12:00 11/28/24 12:00 Temperature Pulse Rate 80 76 Respiratory Rate 20 Blood Pressure Pulse Oximetry 91 Oxygen Delivery Mechanical Ventilation Fraction of Inspired Oxygen 45 11/28/24 12:29 11/28/24 12:33 11/28/24 13:00 Temperature Pulse Rate 80 75 Respiratory Rate 22 H Blood Pressure 97/56 L Pulse Oximetry 91 91 Oxygen Delivery Mechanical Ventilation Fraction of Inspired Oxygen 40 11/28/24 13:00 11/28/24 13:00 11/28/24 14:00 Temperature 36.6 C Pulse Rate 78 78 73 Respiratory Rate 22 H 22 H Blood Pressure 100/64 100/63 Pulse Oximetry 91 Oxygen Delivery Fraction of Inspired Oxygen 11/28/24 14:00 11/28/24 14:00 11/28/24 14:00 Temperature Pulse Rate 78 78 78 Respiratory Rate 22 H 22 H Blood Pressure 105/68 Pulse Oximetry Oxygen Delivery Fraction of Inspired Oxygen 11/28/24 14:00 11/28/24 14:39 11/28/24 14:40 Temperature Pulse Rate 72 79 78 Respiratory Rate 22 H Blood Pressure Pulse Oximetry 91 Oxygen Delivery Mechanical Ventilation Fraction of Inspired Oxygen 11/28/24 15:00 11/28/24 16:00 11/28/24 16:00 Temperature 36.6 C 36.4 C Pulse Rate 78 84 79 Respiratory Rate 20 20 22 H Blood Pressure 117/68 100/68 Pulse Oximetry 91 90 Oxygen Delivery Fraction of Inspired Oxygen 11/28/24 16:00 11/28/24 16:00 11/28/24 16:00 Temperature Pulse Rate 79 72 Respiratory Rate 22 H Blood Pressure 104/61 Pulse Oximetry 92 Oxygen Delivery Mechanical Ventilation Fraction of Inspired Oxygen 40 11/28/24 16:00 11/28/24 16:00 11/28/24 17:00 Temperature 36.4 C Pulse Rate 77 79 Respiratory Rate 22 H Blood Pressure 119/69 Pulse Oximetry 90 Oxygen Delivery Fraction of Inspired Oxygen 40 11/28/24 17:11 11/28/24 18:00 11/28/24 18:00 Temperature Pulse Rate 82 82 79 Respiratory Rate 22 H Blood Pressure 123/68 Pulse Oximetry 92 Oxygen Delivery Mechanical Ventilation Fraction of Inspired Oxygen 11/28/24 18:00 11/28/24 18:00 11/28/24 18:00 Temperature 36.4 C Pulse Rate 82 85 86 Respiratory Rate 22 H 22 H Blood Pressure 104/57 L Pulse Oximetry 96 Oxygen Delivery Fraction of Inspired Oxygen 11/28/24 19:57 11/28/24 20:00 11/28/24 20:00 Temperature 36.2 C L Pulse Rate 75 73 75 Respiratory Rate 22 H 20 22 H Blood Pressure 106/55 L Pulse Oximetry 91 Oxygen Delivery Fraction of Inspired Oxygen 11/28/24 20:00 11/28/24 20:00 11/28/24 20:00 Temperature Pulse Rate 75 73 Respiratory Rate 22 H Blood Pressure Pulse Oximetry Oxygen Delivery Fraction of Inspired Oxygen 40 11/28/24 20:00 11/28/24 20:00 11/28/24 20:01 Temperature Pulse Rate 70 73 75 Respiratory Rate Blood Pressure 106/55 L Pulse Oximetry 92 91 Oxygen Delivery Mechanical Ventilation Mechanical Ventilation Fraction of Inspired Oxygen 40 11/28/24 20:11 11/28/24 21:00 11/28/24 22:00 Temperature Pulse Rate 68 66 Respiratory Rate 75 H 22 H 22 H Blood Pressure 110/72 Pulse Oximetry 93 Oxygen Delivery Fraction of Inspired Oxygen 11/28/24 22:00 11/28/24 22:00 11/28/24 22:00 Temperature 36.2 C L Pulse Rate 66 72 70 Respiratory Rate 22 H 22 H Blood Pressure 110/72 Pulse Oximetry 92 Oxygen Delivery Fraction of Inspired Oxygen 11/28/24 22:00 11/28/24 22:44 11/28/24 23:00 Temperature Pulse Rate 70 70 70 Respiratory Rate 22 H Blood Pressure 98/52 L 104/56 L Pulse Oximetry 92 92 Oxygen Delivery Mechanical Ventilation Fraction of Inspired Oxygen 11/29/24 00:00 11/29/24 00:00 11/29/24 00:00 Temperature 36.3 C L Pulse Rate 67 70 70 Respiratory Rate 22 H 22 H 22 H Blood Pressure 96/54 L Pulse Oximetry 91 Oxygen Delivery Fraction of Inspired Oxygen 11/29/24 00:00 11/29/24 00:00 11/29/24 00:00 Temperature Pulse Rate 70 67 Respiratory Rate Blood Pressure Pulse Oximetry 91 Oxygen Delivery Mechanical Ventilation Fraction of Inspired Oxygen 40 40 11/29/24 00:00 11/29/24 01:00 11/29/24 01:48 Temperature 36.4 C Pulse Rate 67 81 80 Respiratory Rate 22 H 22 H Blood Pressure 109/58 L 106/65 Pulse Oximetry 92 Oxygen Delivery Fraction of Inspired Oxygen 11/29/24 01:57 11/29/24 02:00 11/29/24 02:00 Temperature Pulse Rate 80 75 75 Respiratory Rate 22 H Blood Pressure 104/62 Pulse Oximetry 92 91 Oxygen Delivery Mechanical Ventilation Fraction of Inspired Oxygen 11/29/24 02:00 11/29/24 02:00 11/29/24 02:00 Temperature Pulse Rate 77 77 82 Respiratory Rate 22 H 22 H Blood Pressure 105/60 Pulse Oximetry Oxygen Delivery Fraction of Inspired Oxygen 11/29/24 03:00 11/29/24 04:00 11/29/24 04:00 Temperature Pulse Rate 68 78 72 Respiratory Rate 22 H 22 H 22 H Blood Pressure 106/66 Pulse Oximetry 91 Oxygen Delivery Fraction of Inspired Oxygen 11/29/24 04:00 11/29/24 04:00 11/29/24 04:00 Temperature Pulse Rate 72 90 Respiratory Rate 22 H Blood Pressure Pulse Oximetry 90 Oxygen Delivery Mechanical Ventilation Fraction of Inspired Oxygen 40 55 11/29/24 04:00 11/29/24 04:00 11/29/24 04:33 Temperature 36.4 C L Pulse Rate 72 86 108 H Respiratory Rate 22 H 22 H Blood Pressure 108/57 L 103/52 L Pulse Oximetry 91 Oxygen Delivery Fraction of Inspired Oxygen 11/29/24 04:33 11/29/24 04:39 11/29/24 05:00 Temperature Pulse Rate 108 H 96 94 Respiratory Rate 22 H 22 H 22 H Blood Pressure 114/64 Pulse Oximetry 92 Oxygen Delivery Fraction of Inspired Oxygen 11/29/24 05:20 11/29/24 06:00 11/29/24 06:00 Temperature Pulse Rate 90 86 88 Respiratory Rate 22 H Blood Pressure 103/57 L Pulse Oximetry 90 Oxygen Delivery Mechanical Ventilation Fraction of Inspired Oxygen 11/29/24 06:00 11/29/24 06:00 11/29/24 06:00 Temperature 36.6 C Pulse Rate 88 88 88 Respiratory Rate 22 H 22 H Blood Pressure 101/57 L Pulse Oximetry 92 Oxygen Delivery Fraction of Inspired Oxygen 11/29/24 07:18 11/29/24 07:20 11/29/24 08:00 Temperature Pulse Rate 81 81 84 Respiratory Rate 22 H Blood Pressure 94/51 L Pulse Oximetry 93 Oxygen Delivery Mechanical Ventilation Fraction of Inspired Oxygen 11/29/24 08:00 11/29/24 08:00 11/29/24 08:15 Temperature Pulse Rate 84 84 81 Respiratory Rate 22 H 22 H 22 H Blood Pressure Pulse Oximetry Oxygen Delivery Fraction of Inspired Oxygen 11/29/24 08:29 11/29/24 09:22 11/29/24 09:39 Temperature Pulse Rate 87 94 95 Respiratory Rate 20 Blood Pressure 89/57 L 103/65 Pulse Oximetry Oxygen Delivery Fraction of Inspired Oxygen 11/29/24 09:45 11/29/24 10:20 Temperature Pulse Rate 99 99 Respiratory Rate Blood Pressure 106/67 113/66 Pulse Oximetry Oxygen Delivery Fraction of Inspired Oxygen Intake/Output Intake/Output: Intake & Output 11/26/24 11/27/24 11/28/24 11/29/24 23:59 23:59 23:59 23:59 Intake Total 740 1420 1737.5 392.5 Output Total 500 1950 1650 650 Balance 240 -530 87.5 -257.5 Meds/Results Medications: Active Medications Generic Name Dose Route Start Last Admin Trade Name Freq PRN Reason Stop Dose Admin Acetaminophen 650 mg 11/26/24 14:25 11/26/24 14:46 Acetaminophen 325 Mg Tablet PO 650 mg Q6H PRN Administration Mild Pain (1-3) or Fever Acetylcysteine 200 mg 11/28/24 08:55 11/29/24 08:16 Acetylcysteine 20% Inhal Soln 800 Mg/4 Ml Vial INHALATION 200 mg Q6HRT EDMUNDO Administration Apixaban 5 mg 11/26/24 21:00 11/29/24 09:21 Apixaban 5 Mg Tablet PO 5 mg Q12HR EDMUNDO Administration Dextrose 12.5 gm 11/26/24 16:15 Dextrose 50% 25 Gm/50 Ml Syringe IV PUSH PRN PRN Hypoglycemia Protocol Dornase Campos 2.5 mg 11/28/24 08:00 11/29/24 08:29 Dornase Campos Inh Soln 1 Mg/Ml 2.5 Ml Amp INHALATION 11/30/24 20:01 2.5 mg Q12HRT EDMUNDO Administration Glucagon 1 mg 11/26/24 16:15 Glucagon For Inj 1 Mg Vial IM PRN PRN Hypoglycemia Protocol Glucose 15 gm 11/26/24 16:15 Glucose Oral Gel 15 Gm Of Glucse In 37.5 Gm Tube PO PRN PRN Hypoglycemia Protocol Azithromycin 500 mg/ Sodium 250 mls @ 250 mls/hr 11/27/24 06:00 11/29/24 08:02 Chloride IVPB Infused Q24H EDMUNDO Infusion Dextrose 1,000 mls @ 100 mls/hr 11/26/24 16:15 Dextrose 5% 1,000 Ml IVPB PRN PRN Hypoglycemia Protocol Fentanyl Citrate 2,500 mcg in 250 mls @ 15 mls/hr 11/28/24 06:55 11/29/24 08:00 Fentanyl 2,500 Mcg/Ns 250 Ml IV CONT 150 mcg/hr .[id number] EDMUNDO 15 mls/hr Protocol Titration 150 MCG/HR Midazolam HCl 100 mg in 100 mls @ 3 mls/hr 11/28/24 06:55 11/29/24 08:00 Versed 100 Mg/Ns 100 Ml IV CONT 2 mg/hr .[id number] EDMUNDO 2 mls/hr Protocol Titration 3 MG/HR Norepinephrine Bitartrate 8 mg in 250 mls @ 0 mls/hr 11/28/24 06:55 11/29/24 10:20 Levophed 8 Mg/D5w 250 Ml IV CONT 0 mcg/min .Q0M EDMUNDO 0 mls/hr Protocol Titration 0 MCG/MIN Cefepime HCl 2 gm/ Sodium 50 mls @ 100 mls/hr 11/28/24 14:00 11/29/24 06:04 Chloride IVPB 100 mls/hr Q8HR EDMUNDO Administration Vancomycin HCl 1,500 mg in 500 mls @ 250 mls/hr 11/28/24 21:00 11/29/24 09:21 Vancomycin 1,500 Mg/Ns 500 Ml IVPB 250 mls/hr Q12H EDMUNDO Administration Insulin Aspart 3 - 6 units 11/28/24 06:50 11/29/24 06:28 Insulin Aspart (*Bkc) 100 Units/Ml SUB-Q Not Given Q6HR [facility] Protocol Ipratropium [place] 0.5 mg 11/29/24 08:00 11/29/24 07:20 Ipratropium Br 0.02% Inh Soln 0.5 Mg/2.5 Ml Vial INHALATION Not Given Q6HRT EDMUNDO Levalbuterol HCl 1.25 mg 11/28/24 07:40 11/29/24 07:20 Levalbuterol Neb 1.25 Mg/3 Ml INHALATION Not Given Q6H EDMUNDO Methylprednisolone Sodium Succinate 20 mg 11/29/24 12:00 Methylprednisolone Sod Succ 40 Mg Vial IV PUSH Q6HR EDMUNDO Multi-Ingred Cream/Lotion/Oil/Oint 1 applic 11/28/24 09:00 11/29/24 09:21 Mineral Oil/White Petrolatum Ointment EACH EYE 1 applic Q12HR EDMUNDO Administration Pantoprazole Sodium 40 mg 11/29/24 09:00 11/29/24 09:21 Pantoprazole Sodium Iv 40 Mg Vial IV PUSH 40 mg QAM EDMUNDO Administration Sertraline HCl 50 mg 11/27/24 09:00 11/28/24 12:06 Sertraline Hcl 50 Mg Tablet PO 50 mg On Hold: 11/29/24 08:16 DAILY EDMUNDO Administration Sodium Chloride 10 ml 11/28/24 14:00 11/29/24 06:30 Central Line Flush IV PUSH 10 ml Q8HR EDMUNDO Administration Sodium Chloride 20 ml 11/28/24 11:53 Central Line Flush IV PUSH PRN PRN after blood draws Radiology Results: ITS Impressions Chest X-Ray 11/29/24 08:15 IMPRESSION: 1. Lines and tubes in expected positions. 2. Persistent opacities throughout much of the left hemithorax which could represent atelectasis, pleural effusion, pneumonia or some combination thereof. 2. All major vascular with increased initial pattern in the right perihilar and lower lung zones which could represent mild pulmonary edema or pneumonia. Labs Labs: Laboratory Results - last 24 hr 11/28/24 11/28/24 11/28/24 11:39 11:58 12:24 WBC RBC Hgb Hct MCV MCH MCHC RDW Plt Count MPV Immature Gran % (Auto) Neut % (Auto) Lymph % (Auto) [place] % (Auto) Eos % (Auto) Baso % (Auto) Lymph # (Auto) [place] # (Auto) Eos # (Auto) Baso # (Auto) Abs Immat Gran (auto) Absolute Neuts (auto) Absolute Nucleated RBC Band Neutrophils % Nucleated RBC % Platelet Estimate Hypochromasia Anisocytosis Schistocytes PT INR APTT Puncture Site Artline ABG pH 7.316 L ABG pCO2 74.7 H* ABG pO2 71.0 L ABG PO2/FiO2 Ratio 1.77 ABG HCO3 37.3 H ABG O2 Saturation 92.2 L ABG O2 Content 18.5 ABG Base Excess 8.1 A-a Gradient 128.3 Oxyhemoglobin 92.6 Carboxyhemoglobin Methemoglobin Reduced Hemoglobin Total Hemoglobin 14.2 O2 Delivery Device Ventilator O2 Liters/Min Not Reportable Minute Volume Not Reportable Vent Rate 20 Vent Mode Cmv FiO2 40 Tidal Volume 500 PEEP 8 Peak Inspir Pressure Not Reportable Pressure Support Not Reportable Sodium Potassium Chloride Carbon Dioxide Anion Gap BUN Creatinine Estim Creat Clear Calc Estimated GFR Glucose POC Capillary Glucose 164 H Lactic Acid Calcium Phosphorus Magnesium Total Bilirubin AST ALT Alkaline Phosphatase Total Creatine Kinase Total Protein Albumin Triglycerides Lipase Nasal MRSA (PCR) Detected A* Urine Pneumococcal Ag 11/28/24 11/28/24 11/28/24 12:37 12:38 17:17 WBC 9.5 RBC 4.74 Hgb 13.0 L Hct 45.5 MCV 96.0 MCH 27.4 MCHC 28.6 L RDW 16.4 H Plt Count 181 MPV 9.2 Immature Gran % (Auto) 0.6 H Neut % (Auto) 90.6 H Lymph % (Auto) 6.8 L [place] % (Auto) 2.0 L Eos % (Auto) 0.0 Baso % (Auto) 0.0 L Lymph # (Auto) 0.65 L [place] # (Auto) 0.2 Eos # (Auto) 0.0 Baso # (Auto) 0.0 Abs Immat Gran (auto) 0.06 H Absolute Neuts (auto) 8.6 H Absolute Nucleated RBC 0.020 H Band Neutrophils % Not Reportable Nucleated RBC % 0.2 Platelet Estimate Adequate Hypochromasia Occasional Anisocytosis Schistocytes None seen PT 17.1 H INR 1.4 APTT 28.1 Puncture Site ABG pH ABG pCO2 ABG pO2 ABG PO2/FiO2 Ratio ABG HCO3 ABG O2 Saturation ABG O2 Content ABG Base Excess A-a Gradient Oxyhemoglobin Carboxyhemoglobin Methemoglobin Reduced Hemoglobin Total Hemoglobin O2 Delivery Device O2 Liters/Min Minute Volume Vent Rate Vent Mode FiO2 Tidal Volume PEEP Peak Inspir Pressure Pressure Support Sodium 134 L Potassium 4.5 Chloride 96 L Carbon Dioxide 36 H Anion Gap 2 L BUN 33 H Creatinine 0.79 Estim Creat Clear Calc 155 Estimated GFR > 60 Glucose 156 H POC Capillary Glucose 176 H Lactic Acid 1.0 Calcium 8.3 L Phosphorus 3.3 Magnesium 1.6 Total Bilirubin 0.9 AST 38 ALT 25 Alkaline Phosphatase 89 Total Creatine Kinase 83 Total Protein 6.3 Albumin 3.0 L Triglycerides 87 Lipase 65 Nasal MRSA (PCR) Urine Pneumococcal Ag Cancelled 11/28/24 11/29/24 11/29/24 23:40 05:07 05:10 WBC 8.4 RBC 5.02 Hgb 13.8 L Hct 46.9 MCV 93.4 MCH 27.5 MCHC 29.4 L RDW 16.8 H Plt Count 190 MPV 9.1 Immature Gran % (Auto) 0.4 Neut % (Auto) 88.4 H Lymph % (Auto) 7.9 L [place] % (Auto) 3.3 Eos % (Auto) 0.0 Baso % (Auto) 0.0 L Lymph # (Auto) 0.66 L [place] # (Auto) 0.3 Eos # (Auto) 0.0 Baso # (Auto) 0.0 Abs Immat Gran (auto) 0.03 Absolute Neuts (auto) 7.4 H Absolute Nucleated RBC 0.020 H Band Neutrophils % Not Reportable Nucleated RBC % 0.2 Platelet Estimate Adequate Hypochromasia 1+ Anisocytosis Occasional Schistocytes None seen PT INR APTT Puncture Site Artline ABG pH 7.357 ABG pCO2 61.8 H* ABG pO2 79.2 L ABG PO2/FiO2 Ratio 1.58 ABG HCO3 33.9 H ABG O2 Saturation 94.9 L ABG O2 Content 19.6 ABG Base Excess 6.2 A-a Gradient 207.8 Oxyhemoglobin 94.1 Carboxyhemoglobin 1.4 Methemoglobin 0.1 Reduced Hemoglobin 4.4 Total Hemoglobin 14.8 O2 Delivery Device Ventilator O2 Liters/Min Not Reportable Minute Volume Not Reportable Vent Rate 22 Vent Mode Cmv FiO2 50 Tidal Volume 500 PEEP 8 Peak Inspir Pressure Not Reportable Pressure Support Not Reportable Sodium 134 L Potassium 5.7 H Chloride 96 L Carbon Dioxide 35 H Anion Gap 3 L BUN 34 H Creatinine 0.73 Estim Creat Clear Calc 166 Estimated GFR > 60 Glucose 168 H POC Capillary Glucose 186 H Lactic Acid 1.5 Calcium 8.3 L Phosphorus 3.4 Magnesium 1.7 Total Bilirubin 1.3 AST 50 ALT 26 Alkaline Phosphatase 60 Total Creatine Kinase Total Protein 7.4 Albumin 3.3 L Triglycerides Lipase Nasal MRSA (PCR) Urine Pneumococcal Ag 11/29/24 11/29/24 06:21 06:26 WBC RBC Hgb Hct MCV MCH MCHC RDW Plt Count MPV Immature Gran % (Auto) Neut % (Auto) Lymph % (Auto) [place] % (Auto) Eos % (Auto) Baso % (Auto) Lymph # (Auto) [place] # (Auto) Eos # (Auto) Baso # (Auto) Abs Immat Gran (auto) Absolute Neuts (auto) Absolute Nucleated RBC Band Neutrophils % Nucleated RBC % Platelet Estimate Hypochromasia Anisocytosis Schistocytes PT 17.9 H INR 1.5 APTT 27.3 Puncture Site ABG pH ABG pCO2 ABG pO2 ABG PO2/FiO2 Ratio ABG HCO3 ABG O2 Saturation ABG O2 Content ABG Base Excess A-a Gradient Oxyhemoglobin Carboxyhemoglobin Methemoglobin Reduced Hemoglobin Total Hemoglobin O2 Delivery Device O2 Liters/Min Minute Volume Vent Rate Vent Mode FiO2 Tidal Volume PEEP Peak Inspir Pressure Pressure Support Sodium Potassium Chloride Carbon Dioxide Anion Gap BUN Creatinine Estim Creat Clear Calc Estimated GFR Glucose POC Capillary Glucose 180 H Lactic Acid Calcium Phosphorus Magnesium Total Bilirubin AST ALT Alkaline Phosphatase Total Creatine Kinase Total Protein Albumin Triglycerides Lipase Nasal MRSA (PCR) Urine Pneumococcal Ag Quality VTE Prophylaxis VTE prophylaxis: pharmacologic ordered
--- NOTE | 2024-11-29 13:05 | P.OP_ITS ---
Procedure Note - Detailed Date of Procedure 11/29/24 Pre-op Diagnosis Hypoxic Respiratory Failure/COPD Exacerbation Post-op Diagnosis Other (pneumonia) Procedure Performed Bronchoscopy Surgeon Mello Murray MD Anesthesia None Indications left lower lobe consolidation Findings no mucous plugging Description of Procedure After preoximnation with 100% FIO2, informed consent and time out the bronchoscope was inserted through existing ETT. Mucosa erythematous. Non- occluding secretions removed from left bronchus intermedius. Minimal non- occluding secretions from left lower lobe aspirated. All left segemnts patent. Right lung with minimal secretions that were aspirated. All segments patent. approximately 5 ml of creamy, blood tinged secretions sent for bacterial culture. CXR ordered. 11/29/24: EXAM/PROCEDURE: XR chest 1V portable - 11/29/2024 14:48 CDT HISTORY: 64 years old Male with post bronchonscopy TECHNIQUE: Two view(s) of the chest. COMPARISON: 11/29/2024 FINDINGS: LUNGS/ PLEURA: Right middle lobe consolidation. Left pleural effusion causing compressive atelectasis. Superimposed infection cannot be excluded. No pneumothorax. HEART/ MEDIASTINUM: Moderate cardiomegaly. BONES: Degenerative changes. OTHER: Visualized upper abdomen is unremarkable. Tip of the endotracheal tube is 5.2 cm above evelyn. Tip of the central line is in the proximal right atrium. Tip of the enteric tube projects beyond the [id number] IMPRESSION: Right middle lobe consolidation. Left pleural effusion causing compressive atelectasis. Superimposed infection cannot be excluded. No pneumothorax by chest x-ray. Estimated Blood Loss 0 Urine Output 700 Complications No immediate complications Disposition ICU
[2024-11-29] MEDS: IPRATROPIUM BR 0.02% INH SOLN 0.5 MG/2.5 ML VIAL INHALATION ×2 (14:10→20:27)
[2024-11-29 14:21] LABS: Anion Gap 3 mmol/L (4-12); Blood Urea Nitrogen 33 mg/dL (9-20); Calcium 8.3 mg/dL (8.4-10.2); Carbon Dioxide 38 mmol/L (22-30); Chloride 95 mmol/L (98-107); Estimated CRCL calculation 146 ml/min; Estimated Glomerular Filt Rate > 60; Glucose 179 mg/dL (65-110); Potassium 4.1 mmol/L (3.4-5.0); Sodium 136 mmol/L (137-145)
--- NOTE | 2024-11-29 14:31 | PCRCNOTE ---
Bronchoscopy performed by Dr. Pan with some bronchial spasms during procedure, moderate amount of thick yellow and blood tinged secretion. Procedure was done while on the ventilator, Oxygen was increased to 100% for the procedure, Spo2 was 93-94% with the procedure and HR ranged from 90-110. With a short run of V-tach post procedure. Breath sound on auscultation remained diminished on left, with improved aeration on right. Peep increased to 12 to compensate for the bronchoscopy procedure being done.
--- NOTE | 2024-11-29 14:40 | PC.NURSE ---
Dr Murray, RN and 2 RT's at bedside for Bronchoscopy. Consent obtained. Time out performed at 1431. 5ml blood sputum obtained during procedure and sent for testing. Procedure ended at 1440. Increase of peep to 12, and FiO2 to 100%. VS taken post procedure. Pt tolerated well. CXR obtained post procedure.
--- NOTE | 2024-11-29 15:45 | P.PNIM_ITS ---
Progress Note: A&P Assessment and Plan (1) Acute on chronic respiratory failure with hypoxia and hypercapnia: Code(s): J96.21 - Acute and chronic respiratory failure with hypoxia; J96.22 - Acute and chronic respiratory failure with hypercapnia Status: Acute Assessment and Plan: Acute on chronic respiratory failure secondary to multifactorial combination of COPD, obesity hypoventilation syndrome, left-sided pneumonia, pulmonary edema, atelectasis 11/26: Patient was admitted for increasing/worsening dyspnea 1 day prior to admission. Patient was in the intermediate Unit, evaluated by pulmonology, has been noncompliant with his AVAPS/BiPAP. 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 Also was possibly delirious as he pulled out his IV lines and BiPAP mask. -was on propofol, dropped his blood pressures in the 40s systolic, propofol infusion were discontinued currently sedated with Versed and fentanyl Currently on CMV mode of ventilation, 55% FiO2 and peep of 8 Decrease rate to 20 to prevent hypoventilation as patient is a chronic CO2 retainer at. Increase PEEP to 10. Chest x-ray shows a consolidation versus atelectasis versus combination of 2 on the left side. Patient is a too big for CT scanner hence unable to evaluate Discuss with pulmonology regarding bronchoscopy Discussed with nursing staff will plan to elevate left side with pillows Continue bronchodilators, Pulmozyme and Mucomyst nebs Continue chest PT has been ordered Currently on Solu-Medrol On a antibiotics for pneumonia, vanc cefepime and azithromycin Lasix IV (2) COPD exacerbation: Code(s): J44.1 - Chronic obstructive pulmonary disease with (acute) exacerbation Status: Acute Assessment and Plan: See above (3) Pneumonia: Code(s): J18.9 - Pneumonia, unspecified organism Status: Acute Assessment and Plan: See above (4) Hypotension: Code(s): I95.9 - Hypotension, unspecified Status: Acute Assessment and Plan: Patient dropped his blood pressure is likely related to propofol infuse and positive-pressure ventilation -required phenylephrine push and Levophed infusion Now off (5) Atrial fibrillation with RVR: Code(s): I48.91 - Unspecified atrial fibrillation Status: Acute Assessment and Plan: Patient has a history of AFib with RVR, currently rate controlled but remains in atrial fibrillation -continue Eliquis (6) Type 2 diabetes mellitus: Qualifiers: Diabetes mellitus manager terminal insulin use: without prison use Diabetes mellitus complication status: without complication Qualified Code(s): E11.9 - Type 2 diabetes mellitus without complications Code(s): E11.9 - Type 2 diabetes mellitus without complications Status: Acute Assessment and Plan: Accu-Cheks and sliding scale insulin (7) Essential hypertension: Code(s): I10 - Essential (primary) hypertension Status: Acute Assessment and Plan: Hold antihypertensive medications at this time (8) KATIE (obstructive sleep apnea): Code(s): G47.33 - Obstructive sleep apnea (adult) (pediatric) Status: Acute Assessment and Plan: Non compliant with his CPAP/AVAPS -currently intubated (9) Edema of abdominal wall: Code(s): R60.0 - Localized edema Status: Acute Assessment and Plan: Edema of the abdominal wall on the left side likely related to dependent edema as patient fevers to lay on that side Lasix (10) Hyperkalemia: Code(s): E87.5 - Hyperkalemia Status: Acute Assessment and Plan: Potassium level elevated Patient received Lokelma. I will also give Lasix. Repeat BMP ordered Plan DVT prophylaxis: Apixaban Stress ulcer prophylaxis: Protonix Nutrition: NPO for now. Start tube feeding today after bronchoscopy Code Status: Full code Subjective Date/time seen: 11/29/24 15:45 Interval history: Intubated and sedated Review of Systems Review of Systems: All systems are reviewed and are negative unless stated otherwise in the HPI. ROS unobtainable: Yes unobtainable due to endotracheal tube, unobtainable due to medical condition and unobtainable due to mental status Exam Narrative: General: Significantly obese gentleman, currently intubated, sedated in no acute distress HEENT:? Pupils equal and reactive, sclera is injected, ETT in place Neck:? Thick and short neck Respiratory:? Decreased air entry bilaterally Lt > Rt, expiratory wheezing, rales on left middle and lower lobe region, breath sounds are distant Chest: Left breast is larger than the right, indurated, warm and erythematous compared to the right side Cardiac:? Distant heart sounds, irregularly irregular Abdomen:? Morbidly obese, indurated and form on the left side with pitting edema, right side is softer with less edema, according the os daughter patient prefers to lay on the left side, causing possible dependent edema and swelling Extremities:? Trace edema bilateral lower extremities, palpable pedal pulses Neuro:? Patient is intubated, sedated, does not open his eyes or follow simple commands Skin:? Bruising noted on upper extremities, torso, chronic venous stasis changes on bilateral lower extremity Psych:? Unable to assess at this time Objective Data Vital Signs Vital Signs: Vital Signs - 24 hr 11/28/24 16:00 11/28/24 16:00 11/28/24 16:00 Temperature 97.6 F Pulse Rate 84 79 79 Respiratory Rate 20 22 H Blood Pressure 100/68 104/61 Pulse Oximetry 90 Oxygen Delivery Fraction of Inspired Oxygen 11/28/24 16:00 11/28/24 16:00 11/28/24 16:00 Temperature Pulse Rate 72 Respiratory Rate 22 H Blood Pressure Pulse Oximetry 92 Oxygen Delivery Mechanical Ventilation Fraction of Inspired Oxygen 40 40 11/28/24 16:00 11/28/24 17:00 11/28/24 17:11 Temperature 97.6 F Pulse Rate 77 79 82 Respiratory Rate 22 H Blood Pressure 119/69 Pulse Oximetry 90 92 Oxygen Delivery Mechanical Ventilation Fraction of Inspired Oxygen 11/28/24 18:00 11/28/24 18:00 11/28/24 18:00 Temperature Pulse Rate 82 79 82 Respiratory Rate 22 H 22 H Blood Pressure 123/68 Pulse Oximetry Oxygen Delivery Fraction of Inspired Oxygen 11/28/24 18:00 11/28/24 18:00 11/28/24 19:57 Temperature 97.6 F Pulse Rate 85 86 75 Respiratory Rate 22 H 22 H Blood Pressure 104/57 L Pulse Oximetry 96 Oxygen Delivery Fraction of Inspired Oxygen 11/28/24 20:00 11/28/24 20:00 11/28/24 20:00 Temperature 97.2 F L Pulse Rate 73 75 75 Respiratory Rate 20 22 H 22 H Blood Pressure 106/55 L Pulse Oximetry 91 Oxygen Delivery Fraction of Inspired Oxygen 11/28/24 20:00 11/28/24 20:00 11/28/24 20:00 Temperature Pulse Rate 73 70 Respiratory Rate Blood Pressure Pulse Oximetry 92 Oxygen Delivery Mechanical Ventilation Fraction of Inspired Oxygen 40 40 11/28/24 20:00 11/28/24 20:01 11/28/24 20:11 Temperature Pulse Rate 73 75 Respiratory Rate 75 H Blood Pressure 106/55 L Pulse Oximetry 91 Oxygen Delivery Mechanical Ventilation Fraction of Inspired Oxygen 11/28/24 21:00 11/28/24 22:00 11/28/24 22:00 Temperature Pulse Rate 68 66 66 Respiratory Rate 22 H 22 H 22 H Blood Pressure 110/72 Pulse Oximetry 93 Oxygen Delivery Fraction of Inspired Oxygen 11/28/24 22:00 11/28/24 22:00 11/28/24 22:00 Temperature 97.2 F L Pulse Rate 72 70 70 Respiratory Rate 22 H Blood Pressure 110/72 98/52 L Pulse Oximetry 92 Oxygen Delivery Fraction of Inspired Oxygen 11/28/24 22:44 11/28/24 23:00 11/29/24 00:00 Temperature 97.4 F L Pulse Rate 70 70 67 Respiratory Rate 22 H 22 H Blood Pressure 104/56 L 96/54 L Pulse Oximetry 92 92 91 Oxygen Delivery Mechanical Ventilation Fraction of Inspired Oxygen 11/29/24 00:00 11/29/24 00:00 11/29/24 00:00 Temperature Pulse Rate 70 70 70 Respiratory Rate 22 H 22 H Blood Pressure Pulse Oximetry 91 Oxygen Delivery Mechanical Ventilation Fraction of Inspired Oxygen 40 11/29/24 00:00 11/29/24 00:00 11/29/24 00:00 Temperature Pulse Rate 67 67 Respiratory Rate Blood Pressure 109/58 L Pulse Oximetry Oxygen Delivery Fraction of Inspired Oxygen 40 11/29/24 01:00 11/29/24 01:48 11/29/24 01:57 Temperature 97.6 F Pulse Rate 81 80 80 Respiratory Rate 22 H 22 H Blood Pressure 106/65 Pulse Oximetry 92 92 Oxygen Delivery Mechanical Ventilation Fraction of Inspired Oxygen 11/29/24 02:00 11/29/24 02:00 11/29/24 02:00 Temperature Pulse Rate 75 75 77 Respiratory Rate 22 H 22 H Blood Pressure 104/62 Pulse Oximetry 91 Oxygen Delivery Fraction of Inspired Oxygen 11/29/24 02:00 11/29/24 02:00 11/29/24 03:00 Temperature Pulse Rate 77 82 68 Respiratory Rate 22 H 22 H Blood Pressure 105/60 106/66 Pulse Oximetry 91 Oxygen Delivery Fraction of Inspired Oxygen 11/29/24 04:00 11/29/24 04:00 11/29/24 04:00 Temperature Pulse Rate 78 72 Respiratory Rate 22 H 22 H Blood Pressure Pulse Oximetry Oxygen Delivery Fraction of Inspired Oxygen 40 11/29/24 04:00 11/29/24 04:00 11/29/24 04:00 Temperature 97.5 F L Pulse Rate 72 90 72 Respiratory Rate 22 H 22 H Blood Pressure 108/57 L Pulse Oximetry 90 91 Oxygen Delivery Mechanical Ventilation Fraction of Inspired Oxygen 55 11/29/24 04:00 11/29/24 04:33 11/29/24 04:33 Temperature Pulse Rate 86 108 H 108 H Respiratory Rate 22 H 22 H Blood Pressure 103/52 L Pulse Oximetry Oxygen Delivery Fraction of Inspired Oxygen 11/29/24 04:39 11/29/24 05:00 11/29/24 05:20 Temperature Pulse Rate 96 94 90 Respiratory Rate 22 H 22 H Blood Pressure 114/64 Pulse Oximetry 92 90 Oxygen Delivery Mechanical Ventilation Fraction of Inspired Oxygen 11/29/24 06:00 11/29/24 06:00 11/29/24 06:00 Temperature Pulse Rate 86 88 88 Respiratory Rate 22 H 22 H Blood Pressure 103/57 L Pulse Oximetry Oxygen Delivery Fraction of Inspired Oxygen 11/29/24 06:00 11/29/24 06:00 11/29/24 07:00 Temperature 97.8 F 97.7 F Pulse Rate 88 88 76 Respiratory Rate 22 H 22 H Blood Pressure 101/57 L 108/53 L Pulse Oximetry 92 93 Oxygen Delivery Fraction of Inspired Oxygen 11/29/24 07:18 11/29/24 07:20 11/29/24 08:00 Temperature Pulse Rate 81 81 84 Respiratory Rate 22 H Blood Pressure 94/51 L Pulse Oximetry 93 Oxygen Delivery Mechanical Ventilation Fraction of Inspired Oxygen 55 11/29/24 08:00 11/29/24 08:00 11/29/24 08:00 Temperature 97.6 F Pulse Rate 84 84 82 Respiratory Rate 22 H 22 H 22 H Blood Pressure 94/51 L Pulse Oximetry 90 Oxygen Delivery Fraction of Inspired Oxygen 11/29/24 08:00 11/29/24 08:00 11/29/24 08:00 Temperature Pulse Rate 82 Respiratory Rate Blood Pressure Pulse Oximetry 91 Oxygen Delivery Mechanical Ventilation Fraction of Inspired Oxygen 55 55 11/29/24 08:15 11/29/24 08:29 11/29/24 08:29 Temperature Pulse Rate 81 87 Respiratory Rate 22 H 20 Blood Pressure Pulse Oximetry Oxygen Delivery Mechanical Ventilation Fraction of Inspired Oxygen 55 11/29/24 09:00 11/29/24 09:00 11/29/24 09:22 Temperature 97.6 F Pulse Rate 95 80 94 Respiratory Rate 20 Blood Pressure 100/59 L 89/57 L Pulse Oximetry 92 87 L Oxygen Delivery Mechanical Ventilation Fraction of Inspired Oxygen 55 11/29/24 09:39 11/29/24 09:45 11/29/24 10:00 Temperature 97.4 F L Pulse Rate 95 99 94 Respiratory Rate 20 Blood Pressure 103/65 106/67 114/73 Pulse Oximetry 90 Oxygen Delivery Fraction of Inspired Oxygen 11/29/24 10:00 11/29/24 10:00 11/29/24 10:20 Temperature Pulse Rate 94 94 99 Respiratory Rate 20 Blood Pressure 113/66 Pulse Oximetry Oxygen Delivery Fraction of Inspired Oxygen 11/29/24 11:00 11/29/24 11:30 11/29/24 12:00 Temperature 97.4 F L 97.5 F L Pulse Rate 98 98 94 Respiratory Rate 20 20 Blood Pressure 96/52 L 101/56 L Pulse Oximetry 91 91 91 Oxygen Delivery Mechanical Ventilation Fraction of Inspired Oxygen 60 11/29/24 12:00 11/29/24 12:00 11/29/24 12:00 Temperature Pulse Rate 94 Respiratory Rate 20 Blood Pressure Pulse Oximetry 91 Oxygen Delivery Mechanical Ventilation Fraction of Inspired Oxygen 55 55 11/29/24 12:00 11/29/24 12:00 11/29/24 12:00 Temperature Pulse Rate 94 94 88 Respiratory Rate 20 Blood Pressure 101/56 L Pulse Oximetry Oxygen Delivery Fraction of Inspired Oxygen 11/29/24 13:00 11/29/24 14:00 11/29/24 14:00 Temperature 97.7 F Pulse Rate 91 89 89 Respiratory Rate 20 20 Blood Pressure 102/59 L 91/54 L Pulse Oximetry 93 Oxygen Delivery Fraction of Inspired Oxygen 11/29/24 14:00 11/29/24 14:00 11/29/24 14:01 Temperature 98.0 F Pulse Rate 89 110 H 85 Respiratory Rate 20 20 Blood Pressure 110/72 Pulse Oximetry 93 Oxygen Delivery Fraction of Inspired Oxygen 11/29/24 14:17 11/29/24 14:30 11/29/24 14:31 Temperature 98.1 F Pulse Rate 87 85 85 Respiratory Rate 20 Blood Pressure 89/49 L 142/90 H 142/90 H Pulse Oximetry 93 Oxygen Delivery Fraction of Inspired Oxygen 11/29/24 14:40 11/29/24 14:45 11/29/24 14:45 Temperature 98.2 F Pulse Rate 110 H 110 H Respiratory Rate 22 H Blood Pressure 116/62 116/62 Pulse Oximetry 91 Oxygen Delivery Mechanical Ventilation Fraction of Inspired Oxygen 100 11/29/24 14:45 11/29/24 15:00 11/29/24 15:00 Temperature 98.5 F Pulse Rate 100 100 Respiratory Rate 20 Blood Pressure 115/68 115/68 Pulse Oximetry 91 Oxygen Delivery Fraction of Inspired Oxygen 100 11/29/24 15:15 Temperature Pulse Rate 97 Respiratory Rate Blood Pressure 114/67 Pulse Oximetry Oxygen Delivery Fraction of Inspired Oxygen Intake/Output Intake/Output: Intake & Output 11/26/24 11/27/24 11/28/24 11/29/24 23:59 23:59 23:59 23:59 Intake Total 740 1420 1737.5 1098.0 Output Total 500 1950 1650 4355 Balance 240 -530 87.5 -3257.0 Meds/Results Medications: Active Medications Generic Name Dose Route Start Last Admin Trade Name Freq PRN Reason Stop Dose Admin Acetaminophen 650 mg 11/26/24 14:25 11/26/24 14:46 Acetaminophen 325 Mg Tablet PO 650 mg Q6H PRN Administration Mild Pain (1-3) or Fever Acetylcysteine 200 mg 11/28/24 08:55 11/29/24 08:16 Acetylcysteine 20% Inhal Soln 800 Mg/4 Ml Vial INHALATION 200 mg Q6HRT EDMUNDO Administration Apixaban 5 mg 11/26/24 21:00 11/29/24 09:21 Apixaban 5 Mg Tablet PO 5 mg Q12HR EDMUNDO Administration Dextrose 12.5 gm 11/26/24 16:15 Dextrose 50% 25 Gm/50 Ml Syringe IV PUSH PRN PRN Hypoglycemia Protocol Dornase Campos 2.5 mg 11/28/24 08:00 11/29/24 08:29 Dornase Campos Inh Soln 1 Mg/Ml 2.5 Ml Amp INHALATION 11/30/24 20:01 2.5 mg Q12HRT EDMUNDO Administration Glucagon 1 mg 11/26/24 16:15 Glucagon For Inj 1 Mg Vial IM PRN PRN Hypoglycemia Protocol Glucose 15 gm 11/26/24 16:15 Glucose Oral Gel 15 Gm Of Glucse In 37.5 Gm Tube PO PRN PRN Hypoglycemia Protocol Azithromycin 500 mg/ Sodium 250 mls @ 250 mls/hr 11/27/24 06:00 11/29/24 08:02 Chloride IVPB Infused Q24H EDMUNDO Infusion Dextrose 1,000 mls @ 100 mls/hr 11/26/24 16:15 Dextrose 5% 1,000 Ml IVPB PRN PRN Hypoglycemia Protocol Fentanyl Citrate 2,500 mcg in 250 mls @ 15 mls/hr 11/28/24 06:55 11/29/24 14:00 Fentanyl 2,500 Mcg/Ns 250 Ml IV CONT 150 mcg/hr .[id number] EDMUNDO 15 mls/hr Protocol Titration 150 MCG/HR Midazolam HCl 100 mg in 100 mls @ 3 mls/hr 11/28/24 06:55 11/29/24 14:00 Versed 100 Mg/Ns 100 Ml IV CONT 2 mg/hr .[id number] EDMUNDO 2 mls/hr Protocol Titration 3 MG/HR Norepinephrine Bitartrate 8 mg in 250 mls @ 1.875 mls/hr 11/28/24 06:55 11/29/24 15:15 Levophed 8 Mg/D5w 250 Ml IV CONT 1 mcg/min .Q24H EDMUNDO 1.88 mls/hr Protocol Titration 1 MCG/MIN Cefepime HCl 2 gm/ Sodium 50 mls @ 100 mls/hr 11/28/24 14:00 11/29/24 14:18 Chloride IVPB Infused Q8HR EDMUNDO Infusion Vancomycin HCl 1,500 mg in 500 mls @ 250 mls/hr 11/28/24 21:00 11/29/24 11:30 Vancomycin 1,500 Mg/Ns 500 Ml IVPB Infused Q12H EDMUNDO Infusion Insulin Aspart 3 - 6 units 11/28/24 06:50 11/29/24 12:27 Insulin Aspart (*Bkc) 100 Units/Ml SUB-Q Not Given Q6HR [facility] Protocol Ipratropium [place] 0.5 mg 11/29/24 08:00 11/29/24 07:20 Ipratropium Br 0.02% Inh Soln 0.5 Mg/2.5 Ml Vial INHALATION Not Given Q6HRT EDMUNDO Levalbuterol HCl 1.25 mg 11/29/24 20:00 Levalbuterol Neb 1.25 Mg/3 Ml INHALATION Q6HRT EDMUNDO Methylprednisolone Sodium Succinate 20 mg 11/29/24 12:00 11/29/24 12:27 Methylprednisolone Sod Succ 40 Mg Vial IV PUSH 20 mg Q6HR EDMUNDO Administration Multi-Ingred Cream/Lotion/Oil/Oint 1 applic 11/28/24 09:00 11/29/24 09:21 Mineral Oil/White Petrolatum Ointment EACH EYE 1 applic Q12HR EDMUNDO Administration Pantoprazole Sodium 40 mg 11/29/24 09:00 11/29/24 09:21 Pantoprazole Sodium Iv 40 Mg Vial IV PUSH 40 mg QAM EDMUNDO Administration Sertraline HCl 50 mg 11/27/24 09:00 11/28/24 12:06 Sertraline Hcl 50 Mg Tablet PO 50 mg On Hold: 11/29/24 08:16 DAILY EDMUNDO Administration Sodium Chloride 10 ml 11/28/24 14:00 11/29/24 13:44 Central Line Flush IV PUSH 10 ml Q8HR EDMUNDO Administration Sodium Chloride 20 ml 11/28/24 11:53 Central Line Flush IV PUSH PRN PRN after blood draws Radiology Results: ITS Impressions Chest X-Ray 11/29/24 15:13 IMPRESSION: Right middle lobe consolidation. Left pleural effusion causing compressive atelectasis. Superimposed infection cannot be excluded. Labs Labs: Laboratory Results - last 24 hr 11/28/24 11/28/24 11/28/24 12:38 17:17 23:40 WBC RBC Hgb Hct MCV MCH MCHC RDW Plt Count MPV Immature Gran % (Auto) Neut % (Auto) Lymph % (Auto) [place] % (Auto) Eos % (Auto) Baso % (Auto) Lymph # (Auto) [place] # (Auto) Eos # (Auto) Baso # (Auto) Abs Immat Gran (auto) Absolute Neuts (auto) Absolute Nucleated RBC Band Neutrophils % Nucleated RBC % Platelet Estimate Hypochromasia Anisocytosis Schistocytes PT INR APTT Puncture Site ABG pH ABG pCO2 ABG pO2 ABG PO2/FiO2 Ratio ABG HCO3 ABG O2 Saturation ABG O2 Content ABG Base Excess A-a Gradient Oxyhemoglobin Carboxyhemoglobin Methemoglobin Reduced Hemoglobin Total Hemoglobin O2 Delivery Device O2 Liters/Min Minute Volume Vent Rate Vent Mode FiO2 Tidal Volume PEEP Peak Inspir Pressure Pressure Support Sodium Potassium Chloride Carbon Dioxide Anion Gap BUN Creatinine Estim Creat Clear Calc Estimated GFR Glucose POC Capillary Glucose 176 H 186 H Lactic Acid Calcium Phosphorus Magnesium Total Bilirubin AST ALT Alkaline Phosphatase Total Protein Albumin Urine Pneumococcal Ag Cancelled 11/29/24 11/29/24 11/29/24 05:07 05:10 06:21 WBC 8.4 RBC 5.02 Hgb 13.8 L Hct 46.9 MCV 93.4 MCH 27.5 MCHC 29.4 L RDW 16.8 H Plt Count 190 MPV 9.1 Immature Gran % (Auto) 0.4 Neut % (Auto) 88.4 H Lymph % (Auto) 7.9 L [place] % (Auto) 3.3 Eos % (Auto) 0.0 Baso % (Auto) 0.0 L Lymph # (Auto) 0.66 L [place] # (Auto) 0.3 Eos # (Auto) 0.0 Baso # (Auto) 0.0 Abs Immat Gran (auto) 0.03 Absolute Neuts (auto) 7.4 H Absolute Nucleated RBC 0.020 H Band Neutrophils % Not Reportable Nucleated RBC % 0.2 Platelet Estimate Adequate Hypochromasia 1+ Anisocytosis Occasional Schistocytes None seen PT INR APTT Puncture Site Artline ABG pH 7.357 ABG pCO2 61.8 H* ABG pO2 79.2 L ABG PO2/FiO2 Ratio 1.58 ABG HCO3 33.9 H ABG O2 Saturation 94.9 L ABG O2 Content 19.6 ABG Base Excess 6.2 A-a Gradient 207.8 Oxyhemoglobin 94.1 Carboxyhemoglobin 1.4 Methemoglobin 0.1 Reduced Hemoglobin 4.4 Total Hemoglobin 14.8 O2 Delivery Device Ventilator O2 Liters/Min Not Reportable Minute Volume Not Reportable Vent Rate 22 Vent Mode Cmv FiO2 50 Tidal Volume 500 PEEP 8 Peak Inspir Pressure Not Reportable Pressure Support Not Reportable Sodium 134 L Potassium 5.7 H Chloride 96 L Carbon Dioxide 35 H Anion Gap 3 L BUN 34 H Creatinine 0.73 Estim Creat Clear Calc 166 Estimated GFR > 60 Glucose 168 H POC Capillary Glucose 180 H Lactic Acid 1.5 Calcium 8.3 L Phosphorus 3.4 Magnesium 1.7 Total Bilirubin 1.3 AST 50 ALT 26 Alkaline Phosphatase 60 Total Protein 7.4 Albumin 3.3 L Urine Pneumococcal Ag 11/29/24 11/29/24 11/29/24 06:26 12:26 13:48 WBC RBC Hgb Hct MCV MCH MCHC RDW Plt Count MPV Immature Gran % (Auto) Neut % (Auto) Lymph % (Auto) [place] % (Auto) Eos % (Auto) Baso % (Auto) Lymph # (Auto) [place] # (Auto) Eos # (Auto) Baso # (Auto) Abs Immat Gran (auto) Absolute Neuts (auto) Absolute Nucleated RBC Band Neutrophils % Nucleated RBC % Platelet Estimate Hypochromasia Anisocytosis Schistocytes PT 17.9 H INR 1.5 APTT 27.3 Puncture Site ABG pH ABG pCO2 ABG pO2 ABG PO2/FiO2 Ratio ABG HCO3 ABG O2 Saturation ABG O2 Content ABG Base Excess A-a Gradient Oxyhemoglobin Carboxyhemoglobin Methemoglobin Reduced Hemoglobin Total Hemoglobin O2 Delivery Device O2 Liters/Min Minute Volume Vent Rate Vent Mode FiO2 Tidal Volume PEEP Peak Inspir Pressure Pressure Support Sodium 136 L Potassium 4.1 Chloride 95 L Carbon Dioxide 38 H Anion Gap 3 L BUN 33 H Creatinine 0.82 Estim Creat Clear Calc 146 Estimated GFR > 60 Glucose 179 H POC Capillary Glucose 187 H Lactic Acid Calcium 8.3 L Phosphorus Magnesium Total Bilirubin AST ALT Alkaline Phosphatase Total Protein Albumin Urine Pneumococcal Ag Quality VTE Prophylaxis VTE prophylaxis: pharmacologic ordered
[2024-11-29] MEDS: FENTANYL 2,500MCG/NS250ML(*CRX 2,500 MCG/250 ML BAG 15 MCG IV CONT (21:19)
[2024-11-29] MEDS: MIDAZOLAM 100MG/NS 100ML(*CRX) 100 MG/100 ML BAG IV CONT (21:21)
[2024-11-30] VITALS (39 sets, daily range): BP systolic 91–130; BP diastolic 46–87; PULSE 84–112; RESP 20–21; TEMP 37–37.4; O2SAT 92–100
[2024-11-30] MEDS: IPRATROPIUM BR 0.02% INH SOLN 0.5 MG/2.5 ML VIAL INHALATION ×4 (02:26→20:05)
[2024-11-30] MEDS: ACETYLCYSTEINE 20% INHAL SOLN 800 MG/4 ML VIAL 200 MG INHALATION ×4 (02:27→20:05)
[2024-11-30 04:28] LABS: Hematocrit 44.1 % (42.0-52.0); Hemoglobin 13.1 g/dL (14.0-18.0); Mean Corpuscular HGB Conc 29.7 g/dl (32-36); Mean Corpuscular Hemoglobin 27.1 pg (26-34); Mean Corpuscular Volume 91.3 fl (80-100); Platelet Count Result 162 k/mm3 (150-375); Red Blood Count 4.83 M/mm3 (4.6-6.20); White Blood Count 10.5 K/mm3 (4.5-10.0)
[2024-11-30 04:43] LABS: Alanine Aminotransferase 20 U/L (6-50); Albumin Level 2.8 g/dL (3.5-5.1); Alkaline Phosphatase 72 U/L (38-126); Anion Gap 0 mmol/L (4-12); Aspartate Amino Transferase 30 U/L (17-59); Bilirubin,Total 0.7 mg/dL (0.2-1.3); Blood Urea Nitrogen 37 mg/dL (9-20); Calcium 8.4 mg/dL (8.4-10.2); Carbon Dioxide 38 mmol/L (22-30); Chloride 97 mmol/L (98-107); Estimated CRCL calculation 146 ml/min; Estimated Glomerular Filt Rate > 60; Glucose 197 mg/dL (65-110); Potassium 4.3 mmol/L (3.4-5.0); Sodium 135 mmol/L (137-145); Total Protein 6.2 g/dL (6.3-8.2); Triglycerides 84 mg/dL (<150)
[2024-11-30] MEDS: CEFEPIME 2 GM in SODIUM CHLORIDE 0.9% IV 50 ML 100 ML IVPB ×3 (05:24→21:05)
[2024-11-30 05:27] LABS: Alveolar/Arterial O2 Gradient 351.0 mmHg; Fractional Inspired Oxygen 70 %; HCO3 ABG 34.1 mEq/l (22.0-26.0); Oxygen Content ABG 19.1 %vol (16.0-22.0); Oxygen Saturation ABG 96.4 % (95.0-100.0); PCO2 ABG 56.7 mmHg (35.0-45.0); PO2 ABG 87.2 mmHg (80.0-100.0); PO2 FiO2 Ratio Arterial Blood 1.25 %
[2024-11-30 05:29] LABS: Site Drawn ARTLINE
[2024-11-30 05:30] LABS: Arterial Blood Gas Tidal Volume 500 ml; Arterial Blood Gas Ventilator rate 20 /MIN
[2024-11-30] MEDS: AZITHROMYCIN IV 500 MG in SODIUM CHLORIDE 0.9% IV 250 ML IVPB (05:34)
[2024-11-30] MEDS: CENTRAL LINE FLUSH 10 ML IV PUSH ×3 (05:35→21:00)
[2024-11-30] MEDS: INSULIN ASPART (*BKC) 100 UNITS/ML SUB-Q ×3 (05:39→18:01)
[2024-11-30] MEDS: DORNASE ALFA INH SOLN 1 MG/ML 2.5 ML AMP 2.5 MG INHALATION ×2 (07:59→19:54)
--- NOTE | 2024-11-30 08:31 | P.PNINT_ITS ---
Progress Note: A&P Assessment and Plan (1) Acute on chronic respiratory failure with hypoxia and hypercapnia: Code(s): J96.21 - Acute and chronic respiratory failure with hypoxia; J96.22 - Acute and chronic respiratory failure with hypercapnia Status: Acute Assessment and Plan: Acute on chronic respiratory failure secondary to multifactorial combination of COPD, obesity hypoventilation syndrome, left-sided pneumonia, pulmonary edema, atelectasis 11/26: Patient was admitted for increasing/worsening dyspnea 1 day prior to admission. Patient was in the intermediate Unit, evaluated by pulmonology, has been noncompliant with his AVAPS/BiPAP. 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 Also was possibly delirious as he pulled out his IV lines and BiPAP mask. -was on propofol, dropped his blood pressures in the 40s systolic, propofol infusion were discontinued currently sedated with Versed and fentanyl Chest x-ray shows a consolidation versus atelectasis versus combination of 2 on the left side. Patient is a too big for CT scanner hence unable to evaluate 11/29 bronchoscopy was done. Minimal amount of secretions were seen. Chest x-ray reviewed this morning and shows improvement on the left side Currently on CMV mode of ventilation, 70% FiO2 and peep of 12. Wean oxygen to 60% continue rate of 20 Discussed with nursing staff will plan to elevate left side with pillows Continue bronchodilators, Pulmozyme and Mucomyst nebs Continue chest PT has been ordered Currently on Solu-Medrol but will decrease till On a antibiotics for pneumonia, vanc cefepime and azithromycin Lasix IV will be continue (2) COPD exacerbation: Code(s): J44.1 - Chronic obstructive pulmonary disease with (acute) exacerbation Status: Acute Assessment and Plan: See above (3) Pneumonia: Code(s): J18.9 - Pneumonia, unspecified organism Status: Acute Assessment and Plan: See above (4) Hypotension: Code(s): I95.9 - Hypotension, unspecified Status: Acute Assessment and Plan: Patient dropped his blood pressure is likely related to propofol infuse and positive-pressure ventilation -required phenylephrine push and Levophed infusion Now off (5) Atrial fibrillation with RVR: Code(s): I48.91 - Unspecified atrial fibrillation Status: Acute Assessment and Plan: Patient has a history of AFib with RVR, currently rate controlled but remains in atrial fibrillation -continue Eliquis (6) Type 2 diabetes mellitus: Qualifiers: Diabetes mellitus intermediate frame tender insulin use: without skilled nursing use Diabetes mellitus complication status: without complication Qualified Code(s): E11.9 - Type 2 diabetes mellitus without complications Code(s): E11.9 - Type 2 diabetes mellitus without complications Status: Acute Assessment and Plan: Accu-Cheks and sliding scale insulin (7) Essential hypertension: Code(s): I10 - Essential (primary) hypertension Status: Acute Assessment and Plan: Hold antihypertensive medications at this time (8) KATIE (obstructive sleep apnea): Code(s): G47.33 - Obstructive sleep apnea (adult) (pediatric) Status: Acute Assessment and Plan: Non compliant with his CPAP/AVAPS -currently intubated (9) Edema of abdominal wall: Code(s): R60.0 - Localized edema Status: Acute Assessment and Plan: Edema of the abdominal wall on the left side likely related to dependent edema as patient fevers to lay on that side Lasix (10) Hyperkalemia: Code(s): E87.5 - Hyperkalemia Status: Acute Assessment and Plan: Potassium level was elevated patient was given Lokelma Lasix. Patient now has normal potassium level. Monitor Plan DVT prophylaxis: Apixaban Stress ulcer prophylaxis: Protonix Nutrition: Advance tube feeding Code Status: Full code 11/29 Discussed with patient's daughter and sister updated them with patient's condition and plan of care. Overall patient has a guarded prognosis. We discussed code status. They will discuss among themselves and other family members before making any further decision. Critical Care Time Spent: 32 minutes Due to a high probability of clinically significant, life threatening deterioration, the patient required my highest level of preparedness to intervene emergently and I personally spent this critical care time directly and personally managing the patient. This critical care time included obtaining a history; examining the patient; pulse oximetry; ordering and review of studies; arranging urgent treatment with development of a management plan; evaluation of patient's response to treatment; frequent reassessment; and discussions with other providers. It was exclusive of separately billable procedures and treating other patients and teaching time. Please see Assessment and Plan section and the rest of the note for further information on patient assessment and treatment This dictation may have been done utilizing a voice recognition system. Attempts have been made to correct errors. However, there may be uncorrected grammatical, spelling, and recognitions errors present. Subjective Date/time seen: 11/30/24 Overnight events reviewed. Afebrile Continues to be on mechanical ventilation 70% FiO2 and 12 of PEEP Off Levophed Continues to be sedated with Versed and fentanyl Tolerating tube feeds at 40 mL/hour. Good urine output response to diuretics. Other Vitals acceptable Interval history: 11/28 intubation 11/29 bronchoscopy Review of Systems Review of Systems: ROS unobtainable: Yes unobtainable due to endotracheal tube , unobtainable due to medical condition and unobtainable due to mental status Exam Narrative: General: Significantly obese gentleman, currently intubated, sedated in no acute distress HEENT:? Pupils equal and reactive, sclera is injected, ETT in place Neck:? Thick and short neck Respiratory:? Decreased air entry bilaterally no wheezing. Breath sounds are improved on the left side but still less than as compared to right side Chest: Left breast is larger than the right, indurated, warm and erythematous compared to the right side Cardiac:? Distant heart sounds, irregularly irregular Abdomen:? Morbidly obese, indurated and form on the left side with pitting edema, right side is softer with less edema, according the os daughter patient prefers to lay on the left side, causing possible dependent edema and swelling Extremities:? Trace edema bilateral lower extremities, palpable pedal pulses Neuro:? Patient is intubated, sedated, does not open his eyes or follow simple commands Skin:? Bruising noted on upper extremities, torso, chronic venous stasis changes on bilateral lower extremity Psych:? Unable to assess at this time Objective Data Vital Signs Vital Signs: Vital Signs - 24 hr 11/29/24 09:00 11/29/24 09:00 11/29/24 09:22 Temperature 36.4 C Pulse Rate 95 80 94 Respiratory Rate 20 Blood Pressure 100/59 L 89/57 L Pulse Oximetry 92 87 L Oxygen Delivery Mechanical Ventilation Fraction of Inspired Oxygen 55 11/29/24 09:39 11/29/24 09:45 11/29/24 10:00 Temperature 36.3 C L Pulse Rate 95 99 94 Respiratory Rate 20 Blood Pressure 103/65 106/67 114/73 Pulse Oximetry 90 Oxygen Delivery Fraction of Inspired Oxygen 11/29/24 10:00 11/29/24 10:00 11/29/24 10:20 Temperature Pulse Rate 94 94 99 Respiratory Rate 20 Blood Pressure 113/66 Pulse Oximetry Oxygen Delivery Fraction of Inspired Oxygen 11/29/24 11:00 11/29/24 11:30 11/29/24 12:00 Temperature 36.3 C L 36.4 C L Pulse Rate 98 98 94 Respiratory Rate 20 20 Blood Pressure 96/52 L 101/56 L Pulse Oximetry 91 91 91 Oxygen Delivery Mechanical Ventilation Fraction of Inspired Oxygen 60 11/29/24 12:00 11/29/24 12:00 11/29/24 12:00 Temperature Pulse Rate 94 Respiratory Rate 20 Blood Pressure Pulse Oximetry 91 Oxygen Delivery Mechanical Ventilation Fraction of Inspired Oxygen 55 55 11/29/24 12:00 11/29/24 12:00 11/29/24 12:00 Temperature Pulse Rate 94 94 88 Respiratory Rate 20 Blood Pressure 101/56 L Pulse Oximetry Oxygen Delivery Fraction of Inspired Oxygen 11/29/24 13:00 11/29/24 14:00 11/29/24 14:00 Temperature 36.5 C Pulse Rate 91 89 89 Respiratory Rate 20 20 Blood Pressure 102/59 L 91/54 L Pulse Oximetry 93 Oxygen Delivery Fraction of Inspired Oxygen 11/29/24 14:00 11/29/24 14:00 11/29/24 14:01 Temperature 36.7 C Pulse Rate 89 110 H 85 Respiratory Rate 20 20 Blood Pressure 110/72 Pulse Oximetry 93 Oxygen Delivery Fraction of Inspired Oxygen 11/29/24 14:10 11/29/24 14:10 11/29/24 14:17 Temperature Pulse Rate 84 84 87 Respiratory Rate 20 Blood Pressure 89/49 L Pulse Oximetry 92 Oxygen Delivery Mechanical Ventilation Fraction of Inspired Oxygen 60 11/29/24 14:30 11/29/24 14:31 11/29/24 14:40 Temperature 36.7 C 36.8 C Pulse Rate 85 85 110 H Respiratory Rate 20 22 H Blood Pressure 142/90 H 142/90 H 116/62 Pulse Oximetry 93 91 Oxygen Delivery Fraction of Inspired Oxygen 11/29/24 14:45 11/29/24 14:45 11/29/24 14:45 Temperature Pulse Rate 110 H Respiratory Rate Blood Pressure 116/62 Pulse Oximetry Oxygen Delivery Mechanical Ventilation Fraction of Inspired Oxygen 100 100 11/29/24 15:00 11/29/24 15:00 11/29/24 15:15 Temperature 36.9 C Pulse Rate 100 100 97 Respiratory Rate 20 Blood Pressure 115/68 115/68 114/67 Pulse Oximetry 91 Oxygen Delivery Fraction of Inspired Oxygen 11/29/24 15:48 11/29/24 16:00 11/29/24 16:00 Temperature Pulse Rate 90 97 97 Respiratory Rate 20 Blood Pressure 101/57 L 100/55 L Pulse Oximetry Oxygen Delivery Fraction of Inspired Oxygen 11/29/24 16:00 11/29/24 16:00 11/29/24 16:00 Temperature 36.9 C Pulse Rate 97 96 Respiratory Rate 20 20 Blood Pressure 103/59 L Pulse Oximetry 93 Oxygen Delivery Fraction of Inspired Oxygen 90 11/29/24 16:00 11/29/24 16:00 11/29/24 17:00 Temperature 37.1 C Pulse Rate 88 89 Respiratory Rate 20 Blood Pressure 97/56 L Pulse Oximetry 93 94 Oxygen Delivery Mechanical Ventilation Fraction of Inspired Oxygen 90 11/29/24 17:00 11/29/24 18:00 11/29/24 18:00 Temperature Pulse Rate 90 90 90 Respiratory Rate 20 Blood Pressure 96/57 L Pulse Oximetry 96 Oxygen Delivery Mechanical Ventilation Fraction of Inspired Oxygen 100 11/29/24 18:00 11/29/24 18:00 11/29/24 18:00 Temperature 37.1 C Pulse Rate 90 90 90 Respiratory Rate 20 20 Blood Pressure 96/57 L Pulse Oximetry 92 Oxygen Delivery Fraction of Inspired Oxygen 11/29/24 20:00 11/29/24 20:00 11/29/24 20:00 Temperature Pulse Rate 86 88 88 Respiratory Rate 20 20 Blood Pressure 122/75 Pulse Oximetry Oxygen Delivery Fraction of Inspired Oxygen 11/29/24 20:00 11/29/24 20:00 11/29/24 20:00 Temperature 37.2 C Pulse Rate 98 98 Respiratory Rate 28 H Blood Pressure 122/75 Pulse Oximetry 93 Oxygen Delivery Fraction of Inspired Oxygen 90 11/29/24 20:00 11/29/24 20:32 11/29/24 20:32 Temperature Pulse Rate 88 89 89 Respiratory Rate 20 20 Blood Pressure Pulse Oximetry 93 92 Oxygen Delivery Mechanical Ventilation Mechanical Ventilation Fraction of Inspired Oxygen 90 90 11/29/24 20:38 11/29/24 21:00 11/29/24 21:15 Temperature Pulse Rate 87 89 88 Respiratory Rate 20 20 20 Blood Pressure 100/55 L Pulse Oximetry 93 Oxygen Delivery Fraction of Inspired Oxygen 11/29/24 21:19 11/29/24 21:21 11/29/24 21:21 Temperature Pulse Rate 88 88 88 Respiratory Rate 20 20 20 Blood Pressure Pulse Oximetry Oxygen Delivery Fraction of Inspired Oxygen 11/29/24 22:00 11/29/24 22:00 11/29/24 22:00 Temperature Pulse Rate 84 83 86 Respiratory Rate 20 20 Blood Pressure 101/57 L Pulse Oximetry 94 Oxygen Delivery Fraction of Inspired Oxygen 11/29/24 22:00 11/29/24 22:00 11/29/24 22:55 Temperature Pulse Rate 86 94 91 Respiratory Rate 20 Blood Pressure 120/82 Pulse Oximetry 99 Oxygen Delivery Mechanical Ventilation Fraction of Inspired Oxygen 90 11/29/24 23:00 11/30/24 00:00 11/30/24 00:00 Temperature Pulse Rate 100 100 Respiratory Rate 20 Blood Pressure 107/61 Pulse Oximetry 94 94 Oxygen Delivery Mechanical Ventilation Fraction of Inspired Oxygen 90 90 11/30/24 00:00 11/30/24 00:00 11/30/24 00:00 Temperature 37.3 C Pulse Rate 99 99 99 Respiratory Rate 20 Blood Pressure 128/74 128/74 Pulse Oximetry 93 Oxygen Delivery Fraction of Inspired Oxygen 11/30/24 00:00 11/30/24 00:00 11/30/24 01:00 Temperature Pulse Rate 99 99 94 Respiratory Rate 20 20 20 Blood Pressure 101/68 Pulse Oximetry 92 Oxygen Delivery Fraction of Inspired Oxygen 11/30/24 02:00 11/30/24 02:00 11/30/24 02:00 Temperature Pulse Rate 100 95 95 Respiratory Rate 20 20 Blood Pressure 114/66 Pulse Oximetry Oxygen Delivery Fraction of Inspired Oxygen 11/30/24 02:00 11/30/24 02:00 11/30/24 02:27 Temperature 37.4 C Pulse Rate 84 84 101 H Respiratory Rate 20 Blood Pressure 114/56 L Pulse Oximetry 98 98 Oxygen Delivery Mechanical Ventilation Fraction of Inspired Oxygen 90 11/30/24 02:27 11/30/24 02:50 11/30/24 03:00 Temperature Pulse Rate 101 H 102 H 95 Respiratory Rate 20 20 20 Blood Pressure 112/64 Pulse Oximetry 98 Oxygen Delivery Fraction of Inspired Oxygen 11/30/24 03:30 11/30/24 04:00 11/30/24 04:00 Temperature Pulse Rate 92 92 Respiratory Rate 20 Blood Pressure 104/46 L Pulse Oximetry Oxygen Delivery Fraction of Inspired Oxygen 80 11/30/24 04:00 11/30/24 04:00 11/30/24 04:00 Temperature Pulse Rate 92 92 Respiratory Rate 20 20 Blood Pressure Pulse Oximetry 98 Oxygen Delivery Mechanical Ventilation Fraction of Inspired Oxygen 90 90 11/30/24 04:00 11/30/24 04:00 11/30/24 05:00 Temperature 37.1 C Pulse Rate 88 88 90 Respiratory Rate 20 20 Blood Pressure 108/60 98/58 L Pulse Oximetry 99 96 Oxygen Delivery Fraction of Inspired Oxygen 11/30/24 05:00 11/30/24 05:12 11/30/24 06:00 Temperature Pulse Rate 89 94 Respiratory Rate Blood Pressure Pulse Oximetry 96 Oxygen Delivery Mechanical Ventilation Fraction of Inspired Oxygen 70 70 11/30/24 06:00 11/30/24 07:00 11/30/24 08:01 Temperature 37.2 C Pulse Rate 94 94 103 H Respiratory Rate 20 20 Blood Pressure 95/55 L 98/68 L Pulse Oximetry 95 97 96 Oxygen Delivery Mechanical Ventilation Fraction of Inspired Oxygen 60 11/30/24 08:01 11/30/24 08:30 Temperature Pulse Rate 103 H 112 H Respiratory Rate 20 20 Blood Pressure Pulse Oximetry Oxygen Delivery Fraction of Inspired Oxygen Intake/Output Intake/Output: Intake & Output 11/27/24 11/28/24 11/29/24 11/30/24 23:59 23:59 23:59 23:59 Intake Total 1420 1737.5 1383.9 437 Output Total 1950 1650 4855 550 Balance -530 87.5 -3471.1 -113 Meds/Results Medications: Active Medications Generic Name Dose Route Start Last Admin Trade Name Freq PRN Reason Stop Dose Admin Acetaminophen 650 mg 11/26/24 14:25 11/26/24 14:46 Acetaminophen 325 Mg Tablet PO 650 mg Q6H PRN Administration Mild Pain (1-3) or Fever Acetylcysteine 200 mg 11/28/24 08:55 11/30/24 07:59 Acetylcysteine 20% Inhal Soln 800 Mg/4 Ml Vial INHALATION 200 mg Q6HRT EDMUNDO Administration Apixaban 5 mg 11/26/24 21:00 11/29/24 20:37 Apixaban 5 Mg Tablet PO 5 mg Q12HR EDMUNDO Administration Dextrose 12.5 gm 11/26/24 16:15 Dextrose 50% 25 Gm/50 Ml Syringe IV PUSH PRN PRN Hypoglycemia Protocol Dornase [place] 2.5 mg 11/28/24 08:00 11/30/24 07:59 Dornase [place] Inh Soln 1 Mg/Ml 2.5 Ml Amp INHALATION 11/30/24 20:01 2.5 mg Q12HRT EDMUNDO Administration Glucagon 1 mg 11/26/24 16:15 Glucagon For Inj 1 Mg Vial IM PRN PRN Hypoglycemia Protocol Glucose 15 gm 11/26/24 16:15 Glucose Oral Gel 15 Gm Of Glucse In 37.5 Gm Tube PO PRN PRN Hypoglycemia Protocol Azithromycin 500 mg/ Sodium 250 mls @ 250 mls/hr 11/27/24 06:00 11/30/24 05:34 Chloride IVPB 250 mls/hr Q24H EDMUNDO Administration Dextrose 1,000 mls @ 100 mls/hr 11/26/24 16:15 Dextrose 5% 1,000 Ml IVPB PRN PRN Hypoglycemia Protocol Fentanyl Citrate 2,500 mcg in 250 mls @ 15 mls/hr 11/28/24 06:55 11/30/24 04:00 Fentanyl 2,500 Mcg/Ns 250 Ml IV CONT 150 mcg/hr .[id number] EDMUNDO 15 mls/hr Protocol Titration 150 MCG/HR Midazolam HCl 100 mg in 100 mls @ 2 mls/hr 11/28/24 06:55 11/30/24 04:00 Versed 100 Mg/Ns 100 Ml IV CONT 2 mg/hr .Q50H EDMUNDO 2 mls/hr Protocol Titration 2 MG/HR Norepinephrine Bitartrate 8 mg in 250 mls @ 0 mls/hr 11/28/24 06:55 11/30/24 04:00 Levophed 8 Mg/D5w 250 Ml IV CONT 0 mcg/min .Q0M EDMUNDO 0 mls/hr Protocol Titration 0 MCG/MIN Cefepime HCl 2 gm/ Sodium 50 mls @ 100 mls/hr 11/28/24 14:00 11/30/24 05:24 Chloride IVPB 100 mls/hr Q8HR EDMUNDO Administration Vancomycin HCl 1,500 mg in 500 mls @ 250 mls/hr 11/28/24 21:00 11/29/24 21:24 Vancomycin 1,500 Mg/Ns 500 Ml IVPB 250 mls/hr Q12H EDMUNDO Administration Insulin Aspart 3 - 6 units 11/28/24 06:50 11/30/24 05:39 Insulin Aspart (*Bkc) 100 Units/Ml SUB-Q 3 units Q6HR EDMUNDO Administration Protocol Insulin Glargine 15 units 11/30/24 09:00 Insulin Glargine (*Bkc) 100 Units/Ml SUB-Q QAM EDMUNDO Ipratropium [place] 0.5 mg 11/29/24 08:00 11/30/24 07:58 Ipratropium Br 0.02% Inh Soln 0.5 Mg/2.5 Ml Vial INHALATION 0.5 mg Q6HRT EDMUNDO Administration Levalbuterol HCl 1.25 mg 11/29/24 20:00 11/30/24 07:58 Levalbuterol Neb 1.25 Mg/3 Ml INHALATION 1.25 mg Q6HRT EDMUNDO Administration Methylprednisolone Sodium Succinate 20 mg 11/30/24 09:00 Methylprednisolone Sod Succ 40 Mg Vial IV PUSH QAM EDMUNDO Multi-Ingred Cream/Lotion/Oil/Oint 1 applic 11/28/24 09:00 11/29/24 20:37 Mineral Oil/White Petrolatum Ointment EACH EYE 1 applic Q12HR EDMUNDO Administration Pantoprazole Sodium 40 mg 11/29/24 09:00 11/29/24 09:21 Pantoprazole Sodium Iv 40 Mg Vial IV PUSH 40 mg QAM EDMUNDO Administration Sertraline HCl 50 mg 11/27/24 09:00 11/28/24 12:06 Sertraline Hcl 50 Mg Tablet PO 50 mg On Hold: 11/29/24 08:16 DAILY EDMUNDO Administration Sodium Chloride 10 ml 11/28/24 14:00 11/30/24 05:35 Central Line Flush IV PUSH 10 ml Q8HR EDMUNDO Administration Sodium Chloride 20 ml 11/28/24 11:53 Central Line Flush IV PUSH PRN PRN after blood draws Labs Labs: Laboratory Results - last 24 hr 11/29/24 11/29/24 11/29/24 12:26 13:48 17:31 WBC RBC Hgb Hct MCV MCH MCHC RDW Plt Count MPV Puncture Site ABG pH ABG pCO2 ABG pO2 ABG PO2/FiO2 Ratio ABG HCO3 ABG O2 Saturation ABG O2 Content ABG Base Excess A-a Gradient Oxyhemoglobin Total Hemoglobin O2 Delivery Device O2 Liters/Min Minute Volume Vent Rate Vent Mode FiO2 Tidal Volume PEEP Peak Inspir Pressure Pressure Support Sodium 136 L Potassium 4.1 Chloride 95 L Carbon Dioxide 38 H Anion Gap 3 L BUN 33 H Creatinine 0.82 Estim Creat Clear Calc 146 Estimated GFR > 60 Glucose 179 H POC Capillary Glucose 187 H 178 H Calcium 8.3 L Total Bilirubin AST ALT Alkaline Phosphatase Total Protein Albumin Triglycerides Vancomycin Trough 11/29/24 11/29/24 11/30/24 20:17 23:37 04:23 WBC 10.5 H RBC 4.83 Hgb 13.1 L Hct 44.1 MCV 91.3 MCH 27.1 MCHC 29.7 L RDW 16.8 H Plt Count 162 MPV 8.8 Puncture Site ABG pH ABG pCO2 ABG pO2 ABG PO2/FiO2 Ratio ABG HCO3 ABG O2 Saturation ABG O2 Content ABG Base Excess A-a Gradient Oxyhemoglobin Total Hemoglobin O2 Delivery Device O2 Liters/Min Minute Volume Vent Rate Vent Mode FiO2 Tidal Volume PEEP Peak Inspir Pressure Pressure Support Sodium 135 L Potassium 4.3 Chloride 97 L Carbon Dioxide 38 H Anion Gap 0 L BUN 37 H Creatinine 0.82 Estim Creat Clear Calc 146 Estimated GFR > 60 Glucose 197 H POC Capillary Glucose 191 H Calcium 8.4 Total Bilirubin 0.7 AST 30 ALT 20 Alkaline Phosphatase 72 Total Protein 6.2 L Albumin 2.8 L Triglycerides 84 Vancomycin Trough 14.9 11/30/24 11/30/24 05:12 05:32 WBC RBC Hgb Hct MCV MCH MCHC RDW Plt Count MPV Puncture Site Artline ABG pH 7.397 ABG pCO2 56.7 H ABG pO2 87.2 ABG PO2/FiO2 Ratio 1.25 ABG HCO3 34.1 H ABG O2 Saturation 96.4 ABG O2 Content 19.1 ABG Base Excess 7.4 A-a Gradient 351.0 Oxyhemoglobin 95.6 Total Hemoglobin 14.2 O2 Delivery Device Ventilator O2 Liters/Min Not Reportable Minute Volume Not Reportable Vent Rate 20 Vent Mode Cmv FiO2 70 Tidal Volume 500 PEEP 12 Peak Inspir Pressure Not Reportable Pressure Support Not Reportable Sodium Potassium Chloride Carbon Dioxide Anion Gap BUN Creatinine Estim Creat Clear Calc Estimated GFR Glucose POC Capillary Glucose 230 H Calcium Total Bilirubin AST ALT Alkaline Phosphatase Total Protein Albumin Triglycerides Vancomycin Trough Quality VTE Prophylaxis VTE prophylaxis: pharmacologic ordered
[2024-11-30] MEDS: MINERAL OIL/WHITE PETROLATUM OINTMENT 1 APPLIC EACH EYE ×2 (08:54→20:32)
[2024-11-30] MEDS: VANCOMYCIN 1,500 MG/NS 500 ML 1,500 MG/500 ML BAG 250 MG IVPB ×2 (08:54→20:49)
[2024-11-30] MEDS: FUROSEMIDE INJ 100 MG/10 ML VIAL 80 MG IV PUSH (08:54)
[2024-11-30] MEDS: PANTOPRAZOLE SODIUM IV 40 MG VIAL IV PUSH (08:54)
[2024-11-30] MEDS: INSULIN GLARGINE (*BKC) 100 UNITS/ML 15 UNITS SUB-Q (08:55)
[2024-11-30] MEDS: APIXABAN 5 MG TABLET PO ×2 (08:55→20:32)
--- NOTE | 2024-11-30 10:39 | PCFNICU ---
ICU Rounding Note: Pt current nutrition is Vital HP at 40 ml/hr. Nutrition recommendation: goal rate at 70 ml/hr. Last recorded weight is 215.5 kg, down from 225 kg on admit. Bowel Motility: Last reported BM 11/28 Labs Reviewed: Glu 197, Alb 2.8, Na 135, Hgb 13.1 Meds Noted: Fentanyl, Versed, Lantus Skin: WNL Additional Notes: Patient remains on mechanical vent. Tube feedings are being tolerating 40 ml/hr. Plans to advance to goal rate of 70 ml/hr with free water flush 30 ml/hr. Agree with diet orders. Following daily in ICU rounds. Will monitor weight, labs, skin, diet orders, meds every Thursday and Thursday.
[2024-11-30] MEDS: FENTANYL 2,500MCG/NS250ML(*CRX 2,500 MCG/250 ML BAG 15 MCG IV CONT (12:30)
[2024-11-30 14:47] LABS: Blood Urea Nitrogen 38 mg/dL (9-20); Calcium 8.4 mg/dL (8.4-10.2); Chloride 94 mmol/L (98-107); Estimated CRCL calculation 140 ml/min; Estimated Glomerular Filt Rate > 60; Glucose 230 mg/dL (65-110); Potassium 3.9 mmol/L (3.4-5.0); Sodium 136 mmol/L (137-145)
[2024-11-30 14:59] LABS: Anion Gap 3 mmol/L (4-12); Carbon Dioxide 39 mmol/L (22-30)
--- NOTE | 2024-11-30 17:32 | P.PNIM_ITS ---
Progress Note: A&P Assessment and Plan (1) Acute on chronic respiratory failure with hypoxia and hypercapnia: Code(s): J96.21 - Acute and chronic respiratory failure with hypoxia; J96.22 - Acute and chronic respiratory failure with hypercapnia Status: Acute Assessment and Plan: Acute on chronic respiratory failure secondary to multifactorial combination of COPD, obesity hypoventilation syndrome, left-sided pneumonia, pulmonary edema, atelectasis 11/26: Patient was admitted for increasing/worsening dyspnea 1 day prior to admission. Patient was in the intermediate Unit, evaluated by pulmonology, has been noncompliant with his AVAPS/BiPAP. 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 Also was possibly delirious as he pulled out his IV lines and BiPAP mask. -was on propofol, dropped his blood pressures in the 40s systolic, propofol infusion were discontinued currently sedated with Versed and fentanyl Currently on CMV mode of ventilation, 55% FiO2 and peep of 8 Decrease rate to 20 to prevent hypoventilation as patient is a chronic CO2 retainer at. Increase PEEP to 10. Chest x-ray shows a consolidation versus atelectasis versus combination of 2 on the left side. Patient is a too big for CT scanner hence unable to evaluate Discuss with pulmonology regarding bronchoscopy Discussed with nursing staff will plan to elevate left side with pillows Continue bronchodilators, Pulmozyme and Mucomyst nebs Continue chest PT has been ordered Currently on Solu-Medrol On a antibiotics for pneumonia, vanc cefepime and azithromycin Lasix IV (2) COPD exacerbation: Code(s): J44.1 - Chronic obstructive pulmonary disease with (acute) exacerbation Status: Acute Assessment and Plan: See above (3) Pneumonia: Code(s): J18.9 - Pneumonia, unspecified organism Status: Acute Assessment and Plan: See above (4) Hypotension: Code(s): I95.9 - Hypotension, unspecified Status: Acute Assessment and Plan: Patient dropped his blood pressure is likely related to propofol infuse and positive-pressure ventilation -required phenylephrine push and Levophed infusion Now off (5) Atrial fibrillation with RVR: Code(s): I48.91 - Unspecified atrial fibrillation Status: Acute Assessment and Plan: Patient has a history of AFib with RVR, currently rate controlled but remains in atrial fibrillation -continue Eliquis (6) Type 2 diabetes mellitus: 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: without custodial use Diabetes mellitus complication status: without complication Qualified Code(s): E11.9 - Type 2 diabetes mellitus without complications Code(s): E11.9 - Type 2 diabetes mellitus without complications Status: Acute Assessment and Plan: Accu-Cheks and sliding scale insulin (7) Essential hypertension: Code(s): I10 - Essential (primary) hypertension Status: Acute Assessment and Plan: Hold antihypertensive medications at this time (8) KATIE (obstructive sleep apnea): Code(s): G47.33 - Obstructive sleep apnea (adult) (pediatric) Status: Acute Assessment and Plan: Non compliant with his CPAP/AVAPS -currently intubated (9) Edema of abdominal wall: Code(s): R60.0 - Localized edema Status: Acute Assessment and Plan: Edema of the abdominal wall on the left side likely related to dependent edema as patient fevers to lay on that side Lasix (10) Hyperkalemia: Code(s): E87.5 - Hyperkalemia Status: Acute Assessment and Plan: Potassium level elevated Patient received Lokelma. I will also give Lasix. Repeat BMP ordered Plan 64 y/o Acute on chronic hypercarbic respiratory failure secondary to multifactorial combination of COPD, obesity hypoventilation syndrome, left-sided pneumonia, pulmonary edema, atelectasis, patient is intubated, patient is being treated with steroids, updraft, and N-acetylcysteine, on 11/29 patient had bronchoscopy and 5cc non plugging mucus was remove, patient remain clinically stable on Vent and his sister present in the room, and gave update, patient is seen by evaluation engineer and appreciate. DVT prophylaxis: Apixaban Stress ulcer prophylaxis: Protonix Nutrition: NPO for now. Start tube feeding today after bronchoscopy Code Status: Full code Subjective Date/time seen: 11/30/24 17:32 Interval history: Intubated and sedated 64 y/o Acute on chronic hypercarbic respiratory failure secondary to multifactorial combination of COPD, obesity hypoventilation syndrome, left-sided pneumonia, pulmonary edema, atelectasis, patient is intubated, patient is being treated with steroids, updraft, and N-acetylcysteine, on 11/29 patient had bronchoscopy and 5cc non plugging mucus was remove, patient remain clinically stable on Vent and his sister present in the room, and gave update, patient is seen by evaluation engineer and appreciate. Review of Systems Review of Systems: ROS unobtainable: Yes unobtainable due to endotracheal tube Exam Narrative: Morbidly obese Patient is comfortable, NAD HEENT: ET tube in place LUNGS:CTA HEART: RR S1S2 ABD: BS+, Soft and nontender Lower extremities: no edema SKIN: nonjaundiced Neuro: On vent and sedated Objective Data Vital Signs Vital Signs: Vital Signs - 24 hr 11/29/24 18:00 11/29/24 18:00 11/29/24 18:00 Temperature Pulse Rate 90 90 90 Respiratory Rate 20 20 Blood Pressure 96/57 L Pulse Oximetry Oxygen Delivery Fraction of Inspired Oxygen 11/29/24 18:00 11/29/24 18:00 11/29/24 20:00 Temperature 37.1 C Pulse Rate 90 90 86 Respiratory Rate 20 20 Blood Pressure 96/57 L Pulse Oximetry 92 Oxygen Delivery Fraction of Inspired Oxygen 11/29/24 20:00 11/29/24 20:00 11/29/24 20:00 Temperature 37.2 C Pulse Rate 88 88 98 Respiratory Rate 20 28 H Blood Pressure 122/75 122/75 Pulse Oximetry 93 Oxygen Delivery Fraction of Inspired Oxygen 11/29/24 20:00 11/29/24 20:00 11/29/24 20:00 Temperature Pulse Rate 98 88 Respiratory Rate 20 Blood Pressure Pulse Oximetry 93 Oxygen Delivery Mechanical Ventilation Fraction of Inspired Oxygen 90 90 11/29/24 20:32 11/29/24 20:32 11/29/24 20:38 Temperature Pulse Rate 89 89 87 Respiratory Rate 20 20 Blood Pressure Pulse Oximetry 92 Oxygen Delivery Mechanical Ventilation Fraction of Inspired Oxygen 90 11/29/24 21:00 11/29/24 21:15 11/29/24 21:19 Temperature Pulse Rate 89 88 88 Respiratory Rate 20 20 20 Blood Pressure 100/55 L Pulse Oximetry 93 Oxygen Delivery Fraction of Inspired Oxygen 11/29/24 21:21 11/29/24 21:21 11/29/24 22:00 Temperature Pulse Rate 88 88 84 Respiratory Rate 20 20 Blood Pressure Pulse Oximetry Oxygen Delivery Fraction of Inspired Oxygen 11/29/24 22:00 11/29/24 22:00 11/29/24 22:00 Temperature Pulse Rate 83 86 86 Respiratory Rate 20 20 20 Blood Pressure 101/57 L Pulse Oximetry 94 Oxygen Delivery Fraction of Inspired Oxygen 11/29/24 22:00 11/29/24 22:55 11/29/24 23:00 Temperature Pulse Rate 94 91 100 Respiratory Rate 20 Blood Pressure 120/82 107/61 Pulse Oximetry 99 94 Oxygen Delivery Mechanical Ventilation Fraction of Inspired Oxygen 90 11/30/24 00:00 11/30/24 00:00 11/30/24 00:00 Temperature Pulse Rate 100 99 Respiratory Rate Blood Pressure Pulse Oximetry 94 Oxygen Delivery Mechanical Ventilation Fraction of Inspired Oxygen 90 90 11/30/24 00:00 11/30/24 00:00 11/30/24 00:00 Temperature 37.3 C Pulse Rate 99 99 99 Respiratory Rate 20 20 Blood Pressure 128/74 128/74 Pulse Oximetry 93 Oxygen Delivery Fraction of Inspired Oxygen 11/30/24 00:00 11/30/24 01:00 11/30/24 02:00 Temperature Pulse Rate 99 94 100 Respiratory Rate 20 20 Blood Pressure 101/68 114/66 Pulse Oximetry 92 Oxygen Delivery Fraction of Inspired Oxygen 11/30/24 02:00 11/30/24 02:00 11/30/24 02:00 Temperature Pulse Rate 95 95 84 Respiratory Rate 20 20 Blood Pressure Pulse Oximetry Oxygen Delivery Fraction of Inspired Oxygen 11/30/24 02:00 11/30/24 02:27 11/30/24 02:27 Temperature 37.4 C Pulse Rate 84 101 H 101 H Respiratory Rate 20 20 Blood Pressure 114/56 L Pulse Oximetry 98 98 Oxygen Delivery Mechanical Ventilation Fraction of Inspired Oxygen 90 11/30/24 02:50 11/30/24 03:00 11/30/24 03:30 Temperature Pulse Rate 102 H 95 Respiratory Rate 20 20 Blood Pressure 112/64 Pulse Oximetry 98 Oxygen Delivery Fraction of Inspired Oxygen 80 11/30/24 04:00 11/30/24 04:00 11/30/24 04:00 Temperature Pulse Rate 92 92 92 Respiratory Rate 20 20 Blood Pressure 104/46 L Pulse Oximetry Oxygen Delivery Fraction of Inspired Oxygen 11/30/24 04:00 11/30/24 04:00 11/30/24 04:00 Temperature Pulse Rate 92 88 Respiratory Rate 20 Blood Pressure Pulse Oximetry 98 Oxygen Delivery Mechanical Ventilation Fraction of Inspired Oxygen 90 90 11/30/24 04:00 11/30/24 05:00 11/30/24 05:00 Temperature 37.1 C Pulse Rate 88 90 Respiratory Rate 20 20 Blood Pressure 108/60 98/58 L Pulse Oximetry 99 96 Oxygen Delivery Fraction of Inspired Oxygen 70 11/30/24 05:12 11/30/24 06:00 11/30/24 06:00 Temperature Pulse Rate 89 94 94 Respiratory Rate 20 Blood Pressure 95/55 L Pulse Oximetry 96 95 Oxygen Delivery Mechanical Ventilation Fraction of Inspired Oxygen 70 11/30/24 07:00 11/30/24 08:00 11/30/24 08:00 Temperature 37.2 C Pulse Rate 94 90 90 Respiratory Rate 20 20 Blood Pressure 98/68 L 99/68 L Pulse Oximetry 97 Oxygen Delivery Fraction of Inspired Oxygen 11/30/24 08:00 11/30/24 08:00 11/30/24 08:00 Temperature 37.2 C Pulse Rate 90 90 97 Respiratory Rate 20 20 Blood Pressure 99/68 L Pulse Oximetry 96 Oxygen Delivery Fraction of Inspired Oxygen 11/30/24 08:00 11/30/24 08:00 11/30/24 08:01 Temperature Pulse Rate 103 H Respiratory Rate Blood Pressure Pulse Oximetry 94 96 Oxygen Delivery Mechanical Ventilation Mechanical Ventilation Fraction of Inspired Oxygen 60 60 60 11/30/24 08:01 11/30/24 08:30 11/30/24 09:00 Temperature 37.2 C Pulse Rate 103 H 112 H 95 Respiratory Rate 20 20 20 Blood Pressure 91/75 L Pulse Oximetry 94 Oxygen Delivery Fraction of Inspired Oxygen 11/30/24 10:00 11/30/24 10:00 11/30/24 10:00 Temperature Pulse Rate 97 97 97 Respiratory Rate 20 20 Blood Pressure 112/68 Pulse Oximetry Oxygen Delivery Fraction of Inspired Oxygen 11/30/24 10:00 11/30/24 10:00 11/30/24 10:55 Temperature 37.1 C Pulse Rate 97 97 84 Respiratory Rate 20 Blood Pressure 112/68 Pulse Oximetry 94 95 Oxygen Delivery Mechanical Ventilation Fraction of Inspired Oxygen 60 11/30/24 11:00 11/30/24 12:00 11/30/24 12:00 Temperature 37.0 C Pulse Rate 90 89 97 Respiratory Rate 20 20 20 Blood Pressure 101/63 Pulse Oximetry 95 Oxygen Delivery Fraction of Inspired Oxygen 11/30/24 12:00 11/30/24 12:00 11/30/24 12:00 Temperature Pulse Rate 97 Respiratory Rate Blood Pressure 97/60 L Pulse Oximetry 96 Oxygen Delivery Mechanical Ventilation Fraction of Inspired Oxygen 60 60 11/30/24 12:00 11/30/24 12:00 11/30/24 12:30 Temperature 37.1 C Pulse Rate 94 97 97 Respiratory Rate 20 20 Blood Pressure 97/60 L Pulse Oximetry 96 Oxygen Delivery Fraction of Inspired Oxygen 11/30/24 12:30 11/30/24 13:00 11/30/24 13:48 Temperature 37.1 C Pulse Rate 97 89 91 Respiratory Rate 20 20 Blood Pressure 95/58 L Pulse Oximetry 97 95 Oxygen Delivery Mechanical Ventilation Fraction of Inspired Oxygen 60 11/30/24 13:48 11/30/24 14:00 11/30/24 14:00 Temperature 37.1 C Pulse Rate 91 89 89 Respiratory Rate 20 20 Blood Pressure 95/58 L Pulse Oximetry 97 Oxygen Delivery Fraction of Inspired Oxygen 11/30/24 14:03 11/30/24 15:00 11/30/24 16:51 Temperature 37.1 C Pulse Rate 100 89 87 Respiratory Rate 20 20 Blood Pressure 94/63 L Pulse Oximetry 94 95 Oxygen Delivery Mechanical Ventilation Fraction of Inspired Oxygen 50 Intake/Output Intake/Output: Intake & Output 11/27/24 11/28/24 11/29/24 11/30/24 23:59 23:59 23:59 23:59 Intake Total 1420 1737.5 1883.9 1130.5 Output Total 1950 1650 4855 550 Balance -530 87.5 -2971.1 580.5 Meds/Results Medications: Active Medications Generic Name Dose Route Start Last Admin Trade Name Freq PRN Reason Stop Dose Admin Acetaminophen 650 mg 11/26/24 14:25 11/26/24 14:46 Acetaminophen 325 Mg Tablet PO 650 mg Q6H PRN Administration Mild Pain (1-3) or Fever Acetylcysteine 200 mg 11/28/24 08:55 11/30/24 13:43 Acetylcysteine 20% Inhal Soln 800 Mg/4 Ml Vial INHALATION 200 mg Q6HRT EDMUNDO Administration Apixaban 5 mg 11/26/24 21:00 11/30/24 08:55 Apixaban 5 Mg Tablet PO 5 mg Q12HR EDMUNDO Administration Dextrose 12.5 gm 11/26/24 16:15 Dextrose 50% 25 Gm/50 Ml Syringe IV PUSH PRN PRN Hypoglycemia Protocol Dornase Campos 2.5 mg 11/28/24 08:00 11/30/24 07:59 Dornase Campos Inh Soln 1 Mg/Ml 2.5 Ml Amp INHALATION 11/30/24 20:01 2.5 mg Q12HRT EDMUNDO Administration Glucagon 1 mg 11/26/24 16:15 Glucagon For Inj 1 Mg Vial IM PRN PRN Hypoglycemia Protocol Glucose 15 gm 11/26/24 16:15 Glucose Oral Gel 15 Gm Of Glucse In 37.5 Gm Tube PO PRN PRN Hypoglycemia Protocol Azithromycin 500 mg/ Sodium 250 mls @ 250 mls/hr 11/27/24 06:00 11/30/24 05:34 Chloride IVPB 250 mls/hr Q24H EDMUNDO Administration Dextrose 1,000 mls @ 100 mls/hr 11/26/24 16:15 Dextrose 5% 1,000 Ml IVPB PRN PRN Hypoglycemia Protocol Fentanyl Citrate 2,500 mcg in 250 mls @ 15 mls/hr 11/28/24 06:55 11/30/24 12:30 Fentanyl 2,500 Mcg/Ns 250 Ml IV CONT 150 mcg/hr .[id number] EDMUNDO 15 mls/hr Protocol Administration 150 MCG/HR Midazolam HCl 100 mg in 100 mls @ 2 mls/hr 11/28/24 06:55 11/30/24 12:00 Versed 100 Mg/Ns 100 Ml IV CONT 2 mg/hr .Q50H EDMUNDO 2 mls/hr Protocol Titration 2 MG/HR Norepinephrine Bitartrate 8 mg in 250 mls @ 0 mls/hr 11/28/24 06:55 11/30/24 13:11 Levophed 8 Mg/D5w 250 Ml IV CONT Not Given .Q0M EDMUNDO Protocol 0 MCG/MIN Cefepime HCl 2 gm/ Sodium 50 mls @ 100 mls/hr 11/28/24 14:00 11/30/24 14:23 Chloride IVPB 100 mls/hr Q8HR EDMUNDO Administration Vancomycin HCl 1,500 mg in 500 mls @ 250 mls/hr 11/28/24 21:00 11/30/24 11:00 Vancomycin 1,500 Mg/Ns 500 Ml IVPB Infused Q12H EDMUNDO Infusion Insulin Aspart 3 - 6 units 11/28/24 06:50 11/30/24 12:17 Insulin Aspart (*Bkc) 100 Units/Ml SUB-Q 3 units Q6HR EDMUNDO Administration Protocol Insulin Glargine 15 units 11/30/24 09:00 11/30/24 08:55 Insulin Glargine (*Bkc) 100 Units/Ml SUB-Q 15 units QAM EDMUNDO Administration Ipratropium [place] 0.5 mg 11/29/24 08:00 11/30/24 13:43 Ipratropium Br 0.02% Inh Soln 0.5 Mg/2.5 Ml Vial INHALATION 0.5 mg Q6HRT EDMUNDO Administration Levalbuterol HCl 1.25 mg 11/29/24 20:00 11/30/24 13:43 Levalbuterol Neb 1.25 Mg/3 Ml INHALATION 1.25 mg Q6HRT EDMUNDO Administration Methylprednisolone Sodium Succinate 20 mg 11/30/24 09:00 11/30/24 08:53 Methylprednisolone Sod Succ 40 Mg Vial IV PUSH 20 mg QAM EDMUNDO Administration Multi-Ingred Cream/Lotion/Oil/Oint 1 applic 11/28/24 09:00 11/30/24 08:54 Mineral Oil/White Petrolatum Ointment EACH EYE 1 applic Q12HR EDMUNDO Administration Pantoprazole Sodium 40 mg 11/29/24 09:00 11/30/24 08:54 Pantoprazole Sodium Iv 40 Mg Vial IV PUSH 40 mg QAM EDMUNDO Administration Sertraline HCl 50 mg 11/27/24 09:00 11/28/24 12:06 Sertraline Hcl 50 Mg Tablet PO 50 mg On Hold: 11/29/24 08:16 DAILY EDMUNDO Administration Sodium Chloride 10 ml 11/28/24 14:00 11/30/24 14:23 Central Line Flush IV PUSH 10 ml Q8HR EDMUNDO Administration Sodium Chloride 20 ml 11/28/24 11:53 Central Line Flush IV PUSH PRN PRN after blood draws Radiology Results: ITS Impressions Chest X-Ray 11/30/24 08:34 IMPRESSION: 1. No significant change. 2. Large left pleural effusion with associated basilar atelectasis and/or ai rspace disease. 3. Right basilar airspace disease. Labs Labs: Laboratory Results - last 24 hr 11/29/24 11/29/24 11/29/24 17:31 20:17 23:37 WBC RBC Hgb Hct MCV MCH MCHC RDW Plt Count MPV Puncture Site ABG pH ABG pCO2 ABG pO2 ABG PO2/FiO2 Ratio ABG HCO3 ABG O2 Saturation ABG O2 Content ABG Base Excess A-a Gradient Oxyhemoglobin Total Hemoglobin O2 Delivery Device O2 Liters/Min Minute Volume Vent Rate Vent Mode FiO2 Tidal Volume PEEP Peak Inspir Pressure Pressure Support Sodium Potassium Chloride Carbon Dioxide Anion Gap BUN Creatinine Estim Creat Clear Calc Estimated GFR Glucose POC Capillary Glucose 178 H 191 H Calcium Total Bilirubin AST ALT Alkaline Phosphatase Total Protein Albumin Triglycerides Vancomycin Trough 14.9 11/30/24 11/30/24 11/30/24 04:23 05:12 05:32 WBC 10.5 H RBC 4.83 Hgb 13.1 L Hct 44.1 MCV 91.3 MCH 27.1 MCHC 29.7 L RDW 16.8 H Plt Count 162 MPV 8.8 Puncture Site Artline ABG pH 7.397 ABG pCO2 56.7 H ABG pO2 87.2 ABG PO2/FiO2 Ratio 1.25 ABG HCO3 34.1 H ABG O2 Saturation 96.4 ABG O2 Content 19.1 ABG Base Excess 7.4 A-a Gradient 351.0 Oxyhemoglobin 95.6 Total Hemoglobin 14.2 O2 Delivery Device Ventilator O2 Liters/Min Not Reportable Minute Volume Not Reportable Vent Rate 20 Vent Mode Cmv FiO2 70 Tidal Volume 500 PEEP 12 Peak Inspir Pressure Not Reportable Pressure Support Not Reportable Sodium 135 L Potassium 4.3 Chloride 97 L Carbon Dioxide 38 H Anion Gap 0 L BUN 37 H Creatinine 0.82 Estim Creat Clear Calc 146 Estimated GFR > 60 Glucose 197 H POC Capillary Glucose 230 H Calcium 8.4 Total Bilirubin 0.7 AST 30 ALT 20 Alkaline Phosphatase 72 Total Protein 6.2 L Albumin 2.8 L Triglycerides 84 Vancomycin Trough 11/30/24 11/30/24 12:16 14:19 WBC RBC Hgb Hct MCV MCH MCHC RDW Plt Count MPV Puncture Site ABG pH ABG pCO2 ABG pO2 ABG PO2/FiO2 Ratio ABG HCO3 ABG O2 Saturation ABG O2 Content ABG Base Excess A-a Gradient Oxyhemoglobin Total Hemoglobin O2 Delivery Device O2 Liters/Min Minute Volume Vent Rate Vent Mode FiO2 Tidal Volume PEEP Peak Inspir Pressure Pressure Support Sodium 136 L Potassium 3.9 Chloride 94 L Carbon Dioxide 39 H Anion Gap 3 L BUN 38 H Creatinine 0.85 Estim Creat Clear Calc 140 Estimated GFR > 60 Glucose 230 H POC Capillary Glucose 227 H Calcium 8.4 Total Bilirubin AST ALT Alkaline Phosphatase Total Protein Albumin Triglycerides Vancomycin Trough Quality VTE Prophylaxis VTE prophylaxis: pharmacologic ordered
[2024-12-01] VITALS (42 sets, daily range): BP systolic 100–133; BP diastolic 56–85; PULSE 74–109; RESP 20; TEMP 37.2–37.6; O2SAT 92–97
[2024-12-01] MEDS: INSULIN ASPART (*BKC) 100 UNITS/ML SUB-Q ×4 (00:40→18:03)
[2024-12-01] MEDS: ACETYLCYSTEINE 20% INHAL SOLN 800 MG/4 ML VIAL 200 MG INHALATION ×4 (01:39→20:11)
[2024-12-01] MEDS: IPRATROPIUM BR 0.02% INH SOLN 0.5 MG/2.5 ML VIAL INHALATION ×4 (01:39→20:11)
[2024-12-01 05:14] LABS: Hematocrit 45.5 % (42.0-52.0); Hemoglobin 13.6 g/dL (14.0-18.0); Mean Corpuscular HGB Conc 29.9 g/dl (32-36); Mean Corpuscular Hemoglobin 27.5 pg (26-34); Mean Corpuscular Volume 91.9 fl (80-100); Platelet Count Result 166 k/mm3 (150-375); Red Blood Count 4.95 M/mm3 (4.6-6.20); White Blood Count 10.7 K/mm3 (4.5-10.0)
[2024-12-01] MEDS: AZITHROMYCIN IV 500 MG in SODIUM CHLORIDE 0.9% IV 250 ML IVPB (05:16)
[2024-12-01] MEDS: CEFEPIME 2 GM in SODIUM CHLORIDE 0.9% IV 50 ML 100 ML IVPB ×3 (05:16→20:51)
[2024-12-01] MEDS: CENTRAL LINE FLUSH 10 ML IV PUSH ×3 (05:17→20:55)
[2024-12-01 05:20] LABS: Alveolar/Arterial O2 Gradient 214.0 mmHg; Fractional Inspired Oxygen 50 %; HCO3 ABG 36.9 mEq/l (22.0-26.0); Oxygen Content ABG 18.9 %vol (16.0-22.0); Oxygen Saturation ABG 96.2 % (95.0-100.0); PCO2 ABG 54.5 mmHg (35.0-45.0); PO2 ABG 81.2 mmHg (80.0-100.0); PO2 FiO2 Ratio Arterial Blood 1.62 %
[2024-12-01] MEDS: FENTANYL 2,500MCG/NS250ML(*CRX 2,500 MCG/250 ML BAG 15 MCG IV CONT ×2 (05:23→20:57)
[2024-12-01 05:25] LABS: Arterial Blood Gas Ventilator rate 20 /MIN; Site Drawn ARTLINE
[2024-12-01 05:26] LABS: Arterial Blood Gas Tidal Volume 500 ml
[2024-12-01 05:42] LABS: Alanine Aminotransferase 20 U/L (6-50); Albumin Level 2.9 g/dL (3.5-5.1); Alkaline Phosphatase 63 U/L (38-126); Anion Gap 3 mmol/L (4-12); Aspartate Amino Transferase 29 U/L (17-59); Bilirubin,Total 0.8 mg/dL (0.2-1.3); Blood Urea Nitrogen 44 mg/dL (9-20); Calcium 8.3 mg/dL (8.4-10.2); Carbon Dioxide 38 mmol/L (22-30); Chloride 95 mmol/L (98-107); Estimated CRCL calculation 156 ml/min; Estimated Glomerular Filt Rate > 60; Glucose 223 mg/dL (65-110); Potassium 4.0 mmol/L (3.4-5.0); Sodium 136 mmol/L (137-145); Total Protein 5.8 g/dL (6.3-8.2)
--- NOTE | 2024-12-01 08:18 | WPDINTPN ---
Progress Note: A&P Assessment and Plan (1) Acute on chronic respiratory failure with hypoxia and hypercapnia: Code(s): J96.21 - Acute and chronic respiratory failure with hypoxia; J96.22 - Acute and chronic respiratory failure with hypercapnia Status: Acute Assessment and Plan: Acute on chronic respiratory failure secondary to multifactorial combination of COPD, obesity hypoventilation syndrome, left-sided pneumonia, pulmonary edema, atelectasis 11/26: Patient was admitted for increasing/worsening dyspnea 1 day prior to admission. Patient was in the intermediate Unit, evaluated by pulmonology, has been noncompliant with his AVAPS/BiPAP. 11/28: long term care pharmacist was intubated due to cyanosis, hypo hypoxia, hypercapnia. Also was possibly delirious as he pulled out his IV lines and BiPAP mask. -was on propofol, dropped his blood pressures in the 40s systolic, propofol infusion were discontinued currently sedated with Versed and fentanyl Chest x-ray shows a consolidation versus atelectasis versus combination of 2 on the left side. Patient is a too big for CT scanner hence unable to evaluate 11/29 bronchoscopy was done. Minimal amount of secretions were seen. Chest x-ray reviewed this morning and shows improvement on the left side Currently on CMV mode of ventilation, 50% FiO2 and peep of 12. Wean oxygen to 45% continue rate of 20 Discussed with nursing staff will plan to continue to elevate left side with pillows Continue bronchodilators, Pulmozyme and Mucomyst nebs Continue chest PT has been ordered Currently on Solu-Medrol but I will discontinue further dosing after today's dose Sputum culture is growing Pseudomonas. Nasal MRSA screen is positive On a antibiotics for pneumonia- vanc and cefepime Lasix IV will be continued (2) COPD exacerbation: Code(s): J44.1 - Chronic obstructive pulmonary disease with (acute) exacerbation Status: Acute Assessment and Plan: See above (3) Pneumonia: Code(s): J18.9 - Pneumonia, unspecified organism Status: Acute Assessment and Plan: See above (4) Hypotension: Code(s): I95.9 - Hypotension, unspecified Status: Acute Assessment and Plan: Patient dropped his blood pressure is likely related to propofol infuse and positive-pressure ventilation -required phenylephrine push and Levophed infusion Now off (5) Atrial fibrillation with RVR: Code(s): I48.91 - Unspecified atrial fibrillation Status: Acute Assessment and Plan: Patient has a history of AFib with RVR, currently rate controlled but remains in atrial fibrillation -continue Eliquis (6) Type 2 diabetes mellitus: Qualifiers: Diabetes mellitus intermission coordinator insulin use: without senior care use Diabetes mellitus complication status: without complication Qualified Code(s): E11.9 - Type 2 diabetes mellitus without complications Code(s): E11.9 - Type 2 diabetes mellitus without complications Status: Acute Assessment and Plan: Accu-Cheks and sliding scale insulin Increase Lantus dose (7) Essential hypertension: Code(s): I10 - Essential (primary) hypertension Status: Acute Assessment and Plan: Hold antihypertensive medications at this time (8) KATIE (obstructive sleep apnea): Code(s): G47.33 - Obstructive sleep apnea (adult) (pediatric) Status: Acute Assessment and Plan: Non compliant with his CPAP/AVAPS -currently intubated (9) Edema of abdominal wall: Code(s): R60.0 - Localized edema Status: Acute Assessment and Plan: Edema of the abdominal wall on the left side likely related to dependent edema as patient fevers to lay on that side Lasix will be continued (10) Hyperkalemia: Code(s): E87.5 - Hyperkalemia Status: Acute Assessment and Plan: Potassium level was elevated patient was given Lokelma Lasix. Patient now has normal potassium level. Monitor Plan DVT prophylaxis: Apixaban Stress ulcer prophylaxis: Protonix Nutrition: Advance tube feeding Code Status: Full code 12/01 Discussed and updated patient's daughter at bedside and answered all questions Critical Care Time Spent: 30 minutes Due to a high probability of clinically significant, life threatening deterioration, the patient required my highest level of preparedness to intervene emergently and I personally spent this critical care time directly and personally managing the patient. This critical care time included obtaining a history; examining the patient; pulse oximetry; ordering and review of studies; arranging urgent treatment with development of a management plan; evaluation of patient's response to treatment; frequent reassessment; and discussions with other providers. It was exclusive of separately billable procedures and treating other patients and teaching time. Please see Assessment and Plan section and the rest of the note for further information on patient assessment and treatment This dictation may have been done utilizing a voice recognition system. Attempts have been made to correct errors. However, there may be uncorrected grammatical, spelling, and recognitions errors present. Subjective Date/time seen: 12/01/24 Overnight events reviewed. Afebrile Continues to be on mechanical ventilation 12 PEEP and 50% FiO2 Tolerating tube feeds Good urine output Continues to be sedated with Versed and fentanyl Other Vitals acceptable Interval history: 11/28 intubation 11/29 bronchoscopy Review of Systems Review of Systems: ROS unobtainable: Yes unobtainable due to endotracheal tube, unobtainable due to medical condition and unobtainable due to mental status Exam Narrative: General: Significantly obese gentleman, currently intubated, sedated in no acute distress HEENT:? Pupils equal and reactive, sclera is injected, ETT in place Neck:? Thick and short neck Respiratory:? Decreased air entry bilaterally no wheezing. Breath sounds are improved on the left side but still less than as compared to right side Chest: Left breast is larger than the right, indurated, warm and erythematous compared to the right side Cardiac:? Distant heart sounds, irregularly irregular Abdomen:? Morbidly obese, indurated and form on the left side with pitting edema, right side is softer with less edema, according the os daughter patient prefers to lay on the left side, causing possible dependent edema and swelling Extremities:? Trace edema bilateral lower extremities, palpable pedal pulses Neuro:? Patient is intubated, sedated, does not open his eyes or follow simple commands Skin:? Bruising noted on upper extremities, torso, chronic venous stasis changes on bilateral lower extremity Psych:? Unable to assess at this time Objective Data Vital Signs Vital Signs: Vital Signs - 24 hr 11/30/24 08:30 11/30/24 09:11/30/24 10:00 Temperature 37.2 C Pulse Rate 112 H 95 97 Respiratory Rate 20 20 Blood Pressure 91/75 L 112/68 Pulse Oximetry 94 Oxygen Delivery Fraction of Inspired Oxygen 11/30/24 10:11/30/24 10:00 11/30/24 10:00 Temperature 37.1 C Pulse Rate 97 97 97 Respiratory Rate 20 20 20 Blood Pressure 112/68 Pulse Oximetry 94 Oxygen Delivery Fraction of Inspired Oxygen 11/30/24 10:00 11/30/24 10:55 11/30/24 11:00 Temperature 37.0 C Pulse Rate 97 84 90 Respiratory Rate 20 Blood Pressure 101/63 Pulse Oximetry 95 95 Oxygen Delivery Mechanical Ventilation Fraction of Inspired Oxygen 60 11/30/24 12:00 11/30/24 12:00 11/30/24 12:00 Temperature Pulse Rate 89 97 97 Respiratory Rate 20 20 Blood Pressure 97/60 L Pulse Oximetry Oxygen Delivery Fraction of Inspired Oxygen 11/30/24 12:00 11/30/24 12:00 11/30/24 12:00 Temperature Pulse Rate 94 Respiratory Rate Blood Pressure Pulse Oximetry 96 Oxygen Delivery Mechanical Ventilation Fraction of Inspired Oxygen 60 60 11/30/24 12:00 11/30/24 12:30 11/30/24 12:30 Temperature 37.1 C Pulse Rate 97 97 97 Respiratory Rate 20 20 20 Blood Pressure 97/60 L Pulse Oximetry 96 Oxygen Delivery Fraction of Inspired Oxygen 11/30/24 13:00 11/30/24 13:48 11/30/24 13:48 Temperature 37.1 C Pulse Rate 89 91 91 Respiratory Rate 20 20 Blood Pressure 95/58 L Pulse Oximetry 97 95 Oxygen Delivery Mechanical Ventilation Fraction of Inspired Oxygen 60 11/30/24 14:00 11/30/24 14:00 11/30/24 14:00 Temperature 37.1 C Pulse Rate 89 89 89 Respiratory Rate 20 20 Blood Pressure 95/58 L Pulse Oximetry 97 Oxygen Delivery Fraction of Inspired Oxygen 11/30/24 14:00 11/30/24 14:03 11/30/24 15:00 Temperature 37.1 C Pulse Rate 89 100 89 Respiratory Rate 20 20 20 Blood Pressure 94/63 L Pulse Oximetry 94 Oxygen Delivery Fraction of Inspired Oxygen 11/30/24 16:00 11/30/24 16:00 11/30/24 16:00 Temperature Pulse Rate 93 Respiratory Rate 20 Blood Pressure Pulse Oximetry 96 Oxygen Delivery Mechanical Ventilation Fraction of Inspired Oxygen 60 60 11/30/24 16:00 11/30/24 16:00 11/30/24 16:00 Temperature 37.1 C Pulse Rate 93 93 100 Respiratory Rate 20 20 Blood Pressure 100/60 Pulse Oximetry 95 Oxygen Delivery Fraction of Inspired Oxygen 11/30/24 16:51 11/30/24 17:00 11/30/24 18:00 Temperature 37.1 C Pulse Rate 87 89 93 Respiratory Rate 20 20 Blood Pressure 97/60 L Pulse Oximetry 95 100 Oxygen Delivery Mechanical Ventilation Fraction of Inspired Oxygen 50 11/30/24 18:00 11/30/24 18:00 11/30/24 18:00 Temperature 37.2 C Pulse Rate 88 88 88 Respiratory Rate 20 20 Blood Pressure 100/63 Pulse Oximetry 97 Oxygen Delivery Fraction of Inspired Oxygen 11/30/24 19:00 11/30/24 19:55 11/30/24 20:00 Temperature 37.1 C Pulse Rate 89 91 90 Respiratory Rate 20 20 21 H Blood Pressure 119/79 Pulse Oximetry 97 100 Oxygen Delivery Mechanical Ventilation Fraction of Inspired Oxygen 50 11/30/24 20:00 11/30/24 20:00 11/30/24 20:00 Temperature 37.2 C Pulse Rate 90 90 Respiratory Rate 21 H Blood Pressure 110/85 Pulse Oximetry 100 Oxygen Delivery Fraction of Inspired Oxygen 50 11/30/24 20:00 11/30/24 20:00 11/30/24 20:06 Temperature Pulse Rate 90 90 88 Respiratory Rate 21 H 21 H 21 H Blood Pressure Pulse Oximetry Oxygen Delivery Fraction of Inspired Oxygen 11/30/24 20:10 11/30/24 20:31 11/30/24 21:00 Temperature 37.2 C Pulse Rate 91 98 94 Respiratory Rate 20 20 Blood Pressure 122/74 Pulse Oximetry 99 93 Oxygen Delivery Mechanical Ventilation Fraction of Inspired Oxygen 50 11/30/24 22:00 11/30/24 22:00 11/30/24 22:00 Temperature 37.2 C Pulse Rate 93 93 93 Respiratory Rate 20 20 Blood Pressure 121/67 Pulse Oximetry 95 Oxygen Delivery Fraction of Inspired Oxygen 11/30/24 22:00 11/30/24 22:33 11/30/24 23:00 Temperature 37.2 C Pulse Rate 93 92 91 Respiratory Rate 20 20 Blood Pressure 130/87 Pulse Oximetry 96 95 Oxygen Delivery Mechanical Ventilation Fraction of Inspired Oxygen 50 12/01/24 00:00 12/01/24 00:00 12/01/24 00:00 Temperature 37.2 C Pulse Rate 81 81 Respiratory Rate 20 20 Blood Pressure 126/85 Pulse Oximetry 95 95 Oxygen Delivery Mechanical Ventilation Fraction of Inspired Oxygen 50 50 12/01/24 00:00 12/01/24 00:00 12/01/24 00:00 Temperature Pulse Rate 81 81 81 Respiratory Rate 20 20 Blood Pressure Pulse Oximetry Oxygen Delivery Fraction of Inspired Oxygen 12/01/24 01:00 12/01/24 01:35 12/01/24 01:39 Temperature 37.3 C Pulse Rate 91 95 97 Respiratory Rate 20 20 Blood Pressure 133/83 Pulse Oximetry 97 96 Oxygen Delivery Mechanical Ventilation Fraction of Inspired Oxygen 50 12/01/24 01:57 12/01/24 02:00 12/01/24 02:00 Temperature 37.4 C Pulse Rate 86 92 92 Respiratory Rate 20 20 20 Blood Pressure 123/72 Pulse Oximetry 97 Oxygen Delivery Fraction of Inspired Oxygen 12/01/24 02:00 12/01/24 02:00 12/01/24 03:00 Temperature 37.4 C Pulse Rate 92 92 94 Respiratory Rate 20 20 Blood Pressure 113/75 Pulse Oximetry 96 Oxygen Delivery Fraction of Inspired Oxygen 12/01/24 04:00 12/01/24 04:00 12/01/24 04:00 Temperature 37.4 C Pulse Rate 94 94 94 Respiratory Rate 20 20 20 Blood Pressure 117/72 Pulse Oximetry 96 Oxygen Delivery Fraction of Inspired Oxygen 12/01/24 04:00 12/01/24 04:00 12/01/24 04:00 Temperature Pulse Rate 94 96 Respiratory Rate 20 Blood Pressure Pulse Oximetry 96 Oxygen Delivery Mechanical Ventilation Fraction of Inspired Oxygen 50 50 12/01/24 05:00 12/01/24 05:23 12/01/24 05:23 Temperature 37.5 C Pulse Rate 103 H 98 98 Respiratory Rate 20 20 20 Blood Pressure 106/58 L Pulse Oximetry 96 Oxygen Delivery Fraction of Inspired Oxygen 12/01/24 05:36 12/01/24 06:00 12/01/24 06:00 Temperature 37.6 C Pulse Rate 104 H 104 H 104 H Respiratory Rate 20 Blood Pressure 102/59 L Pulse Oximetry 96 93 Oxygen Delivery Mechanical Ventilation Fraction of Inspired Oxygen 50 12/01/24 06:00 12/01/24 06:00 12/01/24 07:00 Temperature Pulse Rate 104 H 104 H Respiratory Rate 20 20 Blood Pressure Pulse Oximetry 92 Oxygen Delivery Fraction of Inspired Oxygen 12/01/24 07:47 Temperature Pulse Rate Respiratory Rate Blood Pressure 100/56 L Pulse Oximetry Oxygen Delivery Fraction of Inspired Oxygen Intake/Output Intake/Output: Intake & Output 11/28/24 11/29/24 11/30/24 12/01/24 23:59 23:59 23:59 23:59 Intake Total 1737.5 1883.9 2943.0 1137.8 Output Total 1650 4855 5400 825 Balance 87.5 -2971.1 -2457.0 312.8 Meds/Results Medications: Active Medications Generic Name Dose Route Start Last Admin Trade Name Freq PRN Reason Stop Dose Admin Acetaminophen 650 mg 11/26/24 14:25 11/26/24 14:46 Acetaminophen 325 Mg Tablet PO 650 mg Q6H PRN Administration Mild Pain (1-3) or Fever Acetylcysteine 200 mg 11/28/24 08:55 12/01/24 01:39 Acetylcysteine 20% Inhal Soln 800 Mg/4 Ml Vial INHALATION 200 mg Q6HRT EDMUNDO Administration Apixaban 5 mg 11/26/24 21:00 11/30/24 20:32 Apixaban 5 Mg Tablet PO 5 mg Q12HR EDMUNDO Administration Dextrose 12.5 gm 11/26/24 16:15 Dextrose 50% 25 Gm/50 Ml Syringe IV PUSH PRN PRN Hypoglycemia Protocol Glucagon 1 mg 11/26/24 16:15 Glucagon For Inj 1 Mg Vial IM PRN PRN Hypoglycemia Protocol Glucose 15 gm 11/26/24 16:15 Glucose Oral Gel 15 Gm Of Glucse In 37.5 Gm Tube PO PRN PRN Hypoglycemia Protocol Azithromycin 500 mg/ Sodium 250 mls @ 250 mls/hr 11/27/24 06:00 12/01/24 05:16 Chloride IVPB 12/02/24 05:59 250 mls/hr Q24H EDMUNDO Administration Dextrose 1,000 mls @ 100 mls/hr 11/26/24 16:15 Dextrose 5% 1,000 Ml IVPB PRN PRN Hypoglycemia Protocol Fentanyl Citrate 2,500 mcg in 250 mls @ 15 mls/hr 11/28/24 06:55 12/01/24 06:00 Fentanyl 2,500 Mcg/Ns 250 Ml IV CONT 150 mcg/hr .[id number] EDMUNDO 15 mls/hr Protocol Titration 150 MCG/HR Midazolam HCl 100 mg in 100 mls @ 2 mls/hr 11/28/24 06:55 12/01/24 06:00 Versed 100 Mg/Ns 100 Ml IV CONT 2 mg/hr .Q50H EDMUNDO 2 mls/hr Protocol Titration 2 MG/HR Norepinephrine Bitartrate 8 mg in 250 mls @ 0 mls/hr 11/28/24 06:55 11/30/24 13:11 Levophed 8 Mg/D5w 250 Ml IV CONT Not Given .Q0M EDMUNDO Protocol 0 MCG/MIN Cefepime HCl 2 gm/ Sodium 50 mls @ 100 mls/hr 11/28/24 14:00 12/01/24 05:16 Chloride IVPB 100 mls/hr Q8HR EDMUNDO Administration Vancomycin HCl 1,500 mg in 500 mls @ 250 mls/hr 11/28/24 21:00 11/30/24 22:49 Vancomycin 1,500 Mg/Ns 500 Ml IVPB Infused Q12H EDMUNDO Infusion Insulin Aspart 3 - 6 units 11/28/24 06:50 12/01/24 05:50 Insulin Aspart (*Bkc) 100 Units/Ml SUB-Q 3 units Q6HR EDMUNDO Administration Protocol Insulin Glargine 25 units 12/01/24 09:00 Insulin Glargine (*Bkc) 100 Units/Ml SUB-Q QAM EDMUNDO Ipratropium [place] 0.5 mg 11/29/24 08:00 12/01/24 01:39 Ipratropium Br 0.02% Inh Soln 0.5 Mg/2.5 Ml Vial INHALATION 0.5 mg Q6HRT EDMUNDO Administration Levalbuterol HCl 1.25 mg 11/29/24 20:00 12/01/24 01:39 Levalbuterol Neb 1.25 Mg/3 Ml INHALATION 1.25 mg Q6HRT EDMUNDO Administration Methylprednisolone Sodium Succinate 20 mg 11/30/24 09:00 11/30/24 08:53 Methylprednisolone Sod Succ 40 Mg Vial IV PUSH 12/01/24 23:59 20 mg QAM EDMUNDO Administration Multi-Ingred Cream/Lotion/Oil/Oint 1 applic 11/28/24 09:00 11/30/24 20:32 Mineral Oil/White Petrolatum Ointment EACH EYE 1 applic Q12HR EDMUNDO Administration Pantoprazole Sodium 40 mg 11/29/24 09:00 11/30/24 08:54 Pantoprazole Sodium Iv 40 Mg Vial IV PUSH 40 mg QAM EDMUNDO Administration Sertraline HCl 50 mg 11/27/24 09:00 11/28/24 12:06 Sertraline Hcl 50 Mg Tablet PO 50 mg On Hold: 11/29/24 08:16 DAILY EDMUNDO Administration Sodium Chloride 10 ml 11/28/24 14:00 12/01/24 05:17 Central Line Flush IV PUSH 10 ml Q8HR EDMUNDO Administration Sodium Chloride 20 ml 11/28/24 11:53 Central Line Flush IV PUSH PRN PRN after blood draws Labs Labs: Laboratory Results - last 24 hr 11/30/24 11/30/24 11/30/24 12:16 14:19 18:00 WBC RBC Hgb Hct MCV MCH MCHC RDW Plt Count MPV Puncture Site ABG pH ABG pCO2 ABG pO2 ABG PO2/FiO2 Ratio ABG HCO3 ABG O2 Saturation ABG O2 Content ABG Base Excess A-a Gradient Oxyhemoglobin Total Hemoglobin O2 Delivery Device O2 Liters/Min Minute Volume Vent Rate Vent Mode FiO2 Tidal Volume PEEP Peak Inspir Pressure Pressure Support Sodium 136 L Potassium 3.9 Chloride 94 L Carbon Dioxide 39 H Anion Gap 3 L BUN 38 H Creatinine 0.85 Estim Creat Clear Calc 140 Estimated GFR > 60 Glucose 230 H POC Capillary Glucose 227 H 242 H Calcium 8.4 Total Bilirubin AST ALT Alkaline Phosphatase Total Protein Albumin 12/01/24 12/01/24 12/01/24 00:38 04:52 05:09 WBC 10.7 H RBC 4.95 Hgb 13.6 L Hct 45.5 MCV 91.9 MCH 27.5 MCHC 29.9 L RDW 17.0 H Plt Count 166 MPV 9.4 Puncture Site Artline ABG pH 7.448 ABG pCO2 54.5 H ABG pO2 81.2 ABG PO2/FiO2 Ratio 1.62 ABG HCO3 36.9 H ABG O2 Saturation 96.2 ABG O2 Content 18.9 ABG Base Excess 10.8 A-a Gradient 214.0 Oxyhemoglobin 94.9 Total Hemoglobin 14.1 O2 Delivery Device Ventilator O2 Liters/Min Not Reportable Minute Volume Not Reportable Vent Rate 20 Vent Mode Cmv FiO2 50 Tidal Volume 500 PEEP 12 Peak Inspir Pressure Not Reportable Pressure Support Not Reportable Sodium 136 L Potassium 4.0 Chloride 95 L Carbon Dioxide 38 H Anion Gap 3 L BUN 44 H Creatinine 0.75 Estim Creat Clear Calc 156 Estimated GFR > 60 Glucose 223 H POC Capillary Glucose 240 H Calcium 8.3 L Total Bilirubin 0.8 AST 29 ALT 20 Alkaline Phosphatase 63 Total Protein 5.8 L Albumin 2.9 L Quality VTE Prophylaxis VTE prophylaxis: pharmacologic ordered
[2024-12-01] MEDS: VANCOMYCIN 1,500 MG/NS 500 ML 1,500 MG/500 ML BAG 250 MG IVPB ×2 (08:52→21:07)
[2024-12-01] MEDS: PANTOPRAZOLE SODIUM IV 40 MG VIAL IV PUSH (08:53)
[2024-12-01] MEDS: INSULIN GLARGINE (*BKC) 100 UNITS/ML 25 UNITS SUB-Q (08:53)
[2024-12-01] MEDS: APIXABAN 5 MG TABLET PO ×2 (08:53→20:55)
[2024-12-01] MEDS: FUROSEMIDE INJ 100 MG/10 ML VIAL 80 MG IV PUSH (08:54)
[2024-12-01] MEDS: MINERAL OIL/WHITE PETROLATUM OINTMENT 1 APPLIC EACH EYE ×2 (09:19→20:56)
--- NOTE | 2024-12-01 11:04 | PCFNICU ---
ICU Rounding Note: Pt current nutrition is Vital HP at 70 ml/hr. Last recorded weight is 213 kg, down from 225 kg on admit. Bowel Motility: Last reported BM 11/28 Labs Reviewed:Glu 223, Na 136, Alb 2.9, BUN 44 Meds Noted:Fentanyl, Versed, NovoLog Skin: WNL Additional Notes:Patient remains on mechanical vent. Tube feedings are at goal of 70 ml/hr of Vital HP. Total Nutrition: 1540 kcal/134 gm protein/1287 ml water. Meeting 87% kcal needs at 22 kcal/kg IBW and 92% protein needs at 1.8 gm/kg IBW. Flush 30 ml q 4 hours. Agree with diet orders. Following daily in ICU rounds. Will monitor weight, labs, skin, diet orders, meds every Thursday and Thursday.
--- NOTE | 2024-12-01 17:02 | P.PNIM_ITS ---
Progress Note: A&P Assessment and Plan (1) Acute on chronic respiratory failure with hypoxia and hypercapnia: Code(s): J96.21 - Acute and chronic respiratory failure with hypoxia; J96.22 - Acute and chronic respiratory failure with hypercapnia Status: Acute Assessment and Plan: Acute on chronic respiratory failure secondary to multifactorial combination of COPD, obesity hypoventilation syndrome, left-sided pneumonia, pulmonary edema, atelectasis 11/26: Patient was admitted for increasing/worsening dyspnea 1 day prior to admission. Patient was in the intermediate Unit, evaluated by pulmonology, has been noncompliant with his AVAPS/BiPAP. 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 Also was possibly delirious as he pulled out his IV lines and BiPAP mask. -was on propofol, dropped his blood pressures in the 40s systolic, propofol infusion were discontinued currently sedated with Versed and fentanyl Chest x-ray shows a consolidation versus atelectasis versus combination of 2 on the left side. Patient is a too big for CT scanner hence unable to evaluate 11/29 bronchoscopy was done. Minimal amount of secretions were seen. Chest x-ray reviewed this morning and shows improvement on the left side Currently on CMV mode of ventilation, 50% FiO2 and peep of 12. Wean oxygen to 45% continue rate of 20 Discussed with nursing staff will plan to continue to elevate left side with pillows Continue bronchodilators, Pulmozyme and Mucomyst nebs Continue chest PT has been ordered Currently on Solu-Medrol but I will discontinue further dosing after today's dose Sputum culture is growing Pseudomonas. Nasal MRSA screen is positive On a antibiotics for pneumonia- vanc and cefepime Lasix IV will be continued Continue care per food service manager (2) COPD exacerbation: Code(s): J44.1 - Chronic obstructive pulmonary disease with (acute) exacerbation Status: Acute Assessment and Plan: See above (3) Pneumonia: Code(s): J18.9 - Pneumonia, unspecified organism Status: Acute Assessment and Plan: See above (4) Hypotension: Code(s): I95.9 - Hypotension, unspecified Status: Acute Assessment and Plan: Patient dropped his blood pressure is likely related to propofol infuse and positive-pressure ventilation -required phenylephrine push and Levophed infusion Now off (5) Atrial fibrillation with RVR: Code(s): I48.91 - Unspecified atrial fibrillation Status: Acute Assessment and Plan: Patient has a history of AFib with RVR, currently rate controlled but remains in atrial fibrillation -continue Eliquis (6) Type 2 diabetes mellitus: Qualifiers: Diabetes mellitus superintendent container terminal insulin use: without superintendent container terminal use Diabetes mellitus complication status: without complication Qualified Code(s): E11.9 - Type 2 diabetes mellitus without complications Code(s): E11.9 - Type 2 diabetes mellitus without complications Status: Acute Assessment and Plan: Accu-Cheks and sliding scale insulin Increase Lantus dose (7) Essential hypertension: Code(s): I10 - Essential (primary) hypertension Status: Acute Assessment and Plan: Hold antihypertensive medications at this time (8) KATIE (obstructive sleep apnea): Code(s): G47.33 - Obstructive sleep apnea (adult) (pediatric) Status: Acute Assessment and Plan: Non compliant with his CPAP/AVAPS -currently intubated (9) Edema of abdominal wall: Code(s): R60.0 - Localized edema Status: Acute Assessment and Plan: Edema of the abdominal wall on the left side likely related to dependent edema as patient fevers to lay on that side Lasix will be continued (10) Hyperkalemia: Code(s): E87.5 - Hyperkalemia Status: Acute Assessment and Plan: Potassium level was elevated patient was given Lokelma Lasix. Patient now has normal potassium level. Monitor Plan DVT prophylaxis: Apixaban Stress ulcer prophylaxis: Protonix Nutrition: Advance tube feeding Code Status: Full code Subjective Date/time seen: 12/01/24 17:02 Interval history: Intubated and sedated care per food service manager Review of Systems Review of Systems: All systems are reviewed and are negative unless stated otherwise in the HPI. ROS unobtainable: Yes unobtainable due to endotracheal tube, unobtainable due to medical condition and unobtainable due to mental status Exam Narrative: General: Significantly obese gentleman, currently intubated, sedated in no acute distress HEENT:? Pupils equal and reactive, sclera is injected, ETT in place Neck:? Thick and short neck Respiratory:? Decreased air entry bilaterally no wheezing. Breath sounds are improved on the left side but still less than as compared to right side Chest: Left breast is larger than the right, indurated, warm and erythematous compared to the right side Cardiac:? Distant heart sounds, irregularly irregular Abdomen:? Morbidly obese, indurated and form on the left side with pitting edema, right side is softer with less edema, according the os daughter patient prefers to lay on the left side, causing possible dependent edema and swelling Extremities:? Trace edema bilateral lower extremities, palpable pedal pulses Neuro:? Patient is intubated, sedated, does not open his eyes or follow simple commands Skin:? Bruising noted on upper extremities, torso, chronic venous stasis changes on bilateral lower extremity Psych:? Unable to assess at this time Objective Data Vital Signs Vital Signs: Vital Signs - 24 hr 11/30/24 18:00 11/30/24 18:00 11/30/24 18:00 Temperature 98.9 F Pulse Rate 93 88 88 Respiratory Rate 20 20 20 Blood Pressure 100/63 Pulse Oximetry 97 Oxygen Delivery Fraction of Inspired Oxygen 11/30/24 18:00 11/30/24 19:00 11/30/24 19:55 Temperature 98.8 F Pulse Rate 88 89 91 Respiratory Rate 20 20 Blood Pressure 119/79 Pulse Oximetry 97 Oxygen Delivery Fraction of Inspired Oxygen 11/30/24 20:00 11/30/24 20:00 11/30/24 20:00 Temperature 98.9 F Pulse Rate 90 90 Respiratory Rate 21 H 21 H Blood Pressure 110/85 Pulse Oximetry 100 100 Oxygen Delivery Mechanical Ventilation Fraction of Inspired Oxygen 50 50 11/30/24 20:00 11/30/24 20:00 11/30/24 20:00 Temperature Pulse Rate 90 90 90 Respiratory Rate 21 H 21 H Blood Pressure Pulse Oximetry Oxygen Delivery Fraction of Inspired Oxygen 11/30/24 20:06 11/30/24 20:10 11/30/24 20:31 Temperature Pulse Rate 88 91 98 Respiratory Rate 21 H 20 Blood Pressure Pulse Oximetry 99 Oxygen Delivery Mechanical Ventilation Fraction of Inspired Oxygen 50 11/30/24 21:00 11/30/24 22:00 11/30/24 22:00 Temperature 99 F 98.9 F Pulse Rate 94 93 93 Respiratory Rate 20 20 Blood Pressure 122/74 121/67 Pulse Oximetry 93 95 Oxygen Delivery Fraction of Inspired Oxygen 11/30/24 22:00 11/30/24 22:00 11/30/24 22:33 Temperature Pulse Rate 93 93 92 Respiratory Rate 20 20 Blood Pressure Pulse Oximetry 96 Oxygen Delivery Mechanical Ventilation Fraction of Inspired Oxygen 50 11/30/24 23:00 12/01/24 00:00 12/01/24 00:00 Temperature 98.9 F Pulse Rate 91 81 Respiratory Rate 20 20 Blood Pressure 130/87 Pulse Oximetry 95 95 Oxygen Delivery Mechanical Ventilation Fraction of Inspired Oxygen 50 50 12/01/24 00:00 12/01/24 00:00 12/01/24 00:00 Temperature 99 F Pulse Rate 81 81 81 Respiratory Rate 20 20 Blood Pressure 126/85 Pulse Oximetry 95 Oxygen Delivery Fraction of Inspired Oxygen 12/01/24 00:00 12/01/24 01:00 12/01/24 01:35 Temperature 99.2 F Pulse Rate 81 91 95 Respiratory Rate 20 20 Blood Pressure 133/83 Pulse Oximetry 97 96 Oxygen Delivery Mechanical Ventilation Fraction of Inspired Oxygen 50 12/01/24 01:39 12/01/24 01:57 12/01/24 02:00 Temperature 99.3 F Pulse Rate 97 86 92 Respiratory Rate 20 20 20 Blood Pressure 123/72 Pulse Oximetry 97 Oxygen Delivery Fraction of Inspired Oxygen 12/01/24 02:00 12/01/24 02:00 12/01/24 02:00 Temperature Pulse Rate 92 92 92 Respiratory Rate 20 20 Blood Pressure Pulse Oximetry Oxygen Delivery Fraction of Inspired Oxygen 12/01/24 03:00 12/01/24 04:00 12/01/24 04:00 Temperature 99.3 F 99.3 F Pulse Rate 94 94 94 Respiratory Rate 20 20 20 Blood Pressure 113/75 117/72 Pulse Oximetry 96 96 Oxygen Delivery Fraction of Inspired Oxygen 12/01/24 04:00 12/01/24 04:00 12/01/24 04:00 Temperature Pulse Rate 94 94 Respiratory Rate 20 20 Blood Pressure Pulse Oximetry 96 Oxygen Delivery Mechanical Ventilation Fraction of Inspired Oxygen 50 50 12/01/24 04:00 12/01/24 05:00 12/01/24 05:23 Temperature 99.5 F Pulse Rate 96 103 H 98 Respiratory Rate 20 20 Blood Pressure 106/58 L Pulse Oximetry 96 Oxygen Delivery Fraction of Inspired Oxygen 12/01/24 05:23 12/01/24 05:36 12/01/24 06:00 Temperature 99.6 F Pulse Rate 98 104 H 104 H Respiratory Rate 20 20 Blood Pressure 102/59 L Pulse Oximetry 96 93 Oxygen Delivery Mechanical Ventilation Fraction of Inspired Oxygen 50 12/01/24 06:00 12/01/24 06:00 12/01/24 06:00 Temperature Pulse Rate 104 H 104 H 104 H Respiratory Rate 20 20 Blood Pressure Pulse Oximetry Oxygen Delivery Fraction of Inspired Oxygen 12/01/24 07:00 12/01/24 07:00 12/01/24 07:25 Temperature 99.3 F Pulse Rate 95 102 H Respiratory Rate 20 Blood Pressure 100/57 L Pulse Oximetry 92 94 95 Oxygen Delivery Mechanical Ventilation Fraction of Inspired Oxygen 50 12/01/24 07:25 12/01/24 07:47 12/01/24 07:50 Temperature Pulse Rate 84 88 Respiratory Rate 20 20 Blood Pressure 100/56 L Pulse Oximetry Oxygen Delivery Fraction of Inspired Oxygen 12/01/24 08:00 12/01/24 08:00 12/01/24 08:00 Temperature Pulse Rate 101 H 101 H Respiratory Rate 20 20 Blood Pressure Pulse Oximetry Oxygen Delivery Fraction of Inspired Oxygen 50 12/01/24 08:00 12/01/24 09:00 12/01/24 10:00 Temperature 99.4 F Pulse Rate 101 H 104 H 109 H Respiratory Rate 20 20 Blood Pressure 107/80 Pulse Oximetry 92 Oxygen Delivery Fraction of Inspired Oxygen 12/01/24 10:00 12/01/24 10:00 12/01/24 10:00 Temperature 99.4 F Pulse Rate 109 H 109 H 109 H Respiratory Rate 20 20 Blood Pressure 119/68 Pulse Oximetry 92 Oxygen Delivery Fraction of Inspired Oxygen 12/01/24 11:00 12/01/24 12:00 12/01/24 12:00 Temperature 99.5 F Pulse Rate 102 H 102 H 102 H Respiratory Rate 20 20 20 Blood Pressure 113/68 Pulse Oximetry 93 Oxygen Delivery Fraction of Inspired Oxygen 12/01/24 12:00 12/01/24 12:00 12/01/24 12:00 Temperature 99.5 F Pulse Rate 102 H 95 Respiratory Rate 20 Blood Pressure 114/69 Pulse Oximetry 96 Oxygen Delivery Fraction of Inspired Oxygen 50 12/01/24 13:00 12/01/24 13:47 12/01/24 13:55 Temperature 99.3 F Pulse Rate 95 92 100 Respiratory Rate 20 20 Blood Pressure 106/67 Pulse Oximetry 96 96 Oxygen Delivery Mechanical Ventilation Fraction of Inspired Oxygen 45 12/01/24 14:00 12/01/24 14:00 12/01/24 14:00 Temperature 99.3 F Pulse Rate 91 91 91 Respiratory Rate 20 20 Blood Pressure 107/64 Pulse Oximetry 94 Oxygen Delivery Fraction of Inspired Oxygen 12/01/24 14:00 12/01/24 14:00 12/01/24 15:00 Temperature 99.2 F Pulse Rate 91 90 94 Respiratory Rate 20 20 20 Blood Pressure 113/61 Pulse Oximetry 93 Oxygen Delivery Fraction of Inspired Oxygen 12/01/24 16:10 Temperature Pulse Rate 100 Respiratory Rate Blood Pressure Pulse Oximetry 95 Oxygen Delivery Mechanical Ventilation Fraction of Inspired Oxygen 45 Intake/Output Intake/Output: Intake & Output 11/28/24 11/29/24 11/30/24 12/01/24 23:59 23:59 23:59 23:59 Intake Total 1737.5 1883.9 2943.0 2674.8 Output Total 1650 4855 5400 5375 Balance 87.5 -2971.1 -2457.0 -2700.2 Meds/Results Medications: Active Medications Generic Name Dose Route Start Last Admin Trade Name Freq PRN Reason Stop Dose Admin Acetaminophen 650 mg 11/26/24 14:25 11/26/24 14:46 Acetaminophen 325 Mg Tablet PO 650 mg Q6H PRN Administration Mild Pain (1-3) or Fever Acetylcysteine 200 mg 11/28/24 08:55 12/01/24 13:42 Acetylcysteine 20% Inhal Soln 800 Mg/4 Ml Vial INHALATION 200 mg Q6HRT EDMUNDO Administration Apixaban 5 mg 11/26/24 21:00 12/01/24 08:53 Apixaban 5 Mg Tablet PO 5 mg Q12HR EDMUNDO Administration Dextrose 12.5 gm 11/26/24 16:15 Dextrose 50% 25 Gm/50 Ml Syringe IV PUSH PRN PRN Hypoglycemia Protocol Glucagon 1 mg 11/26/24 16:15 Glucagon For Inj 1 Mg Vial IM PRN PRN Hypoglycemia Protocol Glucose 15 gm 11/26/24 16:15 Glucose Oral Gel 15 Gm Of Glucse In 37.5 Gm Tube PO PRN PRN Hypoglycemia Protocol Dextrose 1,000 mls @ 100 mls/hr 11/26/24 16:15 Dextrose 5% 1,000 Ml IVPB PRN PRN Hypoglycemia Protocol Fentanyl Citrate 2,500 mcg in 250 mls @ 15 mls/hr 11/28/24 06:55 12/01/24 14:00 Fentanyl 2,500 Mcg/Ns 250 Ml IV CONT 150 mcg/hr .[id number] EDMUNDO 15 mls/hr Protocol Titration 150 MCG/HR Midazolam HCl 100 mg in 100 mls @ 2 mls/hr 11/28/24 06:55 12/01/24 14:00 Versed 100 Mg/Ns 100 Ml IV CONT 2 mg/hr .Q50H EDMUNDO 2 mls/hr Protocol Titration 2 MG/HR Norepinephrine Bitartrate 8 mg in 250 mls @ 0 mls/hr 11/28/24 06:55 11/30/24 13:11 Levophed 8 Mg/D5w 250 Ml IV CONT Not Given .Q0M EDMUNDO Protocol 0 MCG/MIN Cefepime HCl 2 gm/ Sodium 50 mls @ 100 mls/hr 11/28/24 14:00 12/01/24 15:06 Chloride IVPB Infused Q8HR EDMUNDO Infusion Vancomycin HCl 1,500 mg in 500 mls @ 250 mls/hr 11/28/24 21:00 12/01/24 12:12 Vancomycin 1,500 Mg/Ns 500 Ml IVPB 12/01/24 23:59 Infused Q12H EDMUNDO Infusion Insulin Aspart 3 - 6 units 11/28/24 06:50 12/01/24 12:09 Insulin Aspart (*Bkc) 100 Units/Ml SUB-Q 3 units Q6HR EDMUNDO Administration Protocol Insulin Glargine 25 units 12/01/24 09:00 12/01/24 08:53 Insulin Glargine (*Bkc) 100 Units/Ml SUB-Q 25 units QAM EDMUNDO Administration Ipratropium [place] 0.5 mg 11/29/24 08:00 12/01/24 13:41 Ipratropium Br 0.02% Inh Soln 0.5 Mg/2.5 Ml Vial INHALATION 0.5 mg Q6HRT EDMUNDO Administration Levalbuterol HCl 1.25 mg 11/29/24 20:00 12/01/24 13:41 Levalbuterol Neb 1.25 Mg/3 Ml INHALATION 1.25 mg Q6HRT EDMUNDO Administration Methylprednisolone Sodium Succinate 20 mg 11/30/24 09:00 12/01/24 08:52 Methylprednisolone Sod Succ 40 Mg Vial IV PUSH 12/01/24 23:59 20 mg QAM EDMUNDO Administration Multi-Ingred Cream/Lotion/Oil/Oint 1 applic 11/28/24 09:00 12/01/24 09:19 Mineral Oil/White Petrolatum Ointment EACH EYE 1 applic Q12HR EDMUNDO Administration Pantoprazole Sodium 40 mg 11/29/24 09:00 12/01/24 08:53 Pantoprazole Sodium Iv 40 Mg Vial IV PUSH 40 mg QAM EDMUNDO Administration Sertraline HCl 50 mg 11/27/24 09:00 11/28/24 12:06 Sertraline Hcl 50 Mg Tablet PO 50 mg On Hold: 11/29/24 08:16 DAILY EDMUNDO Administration Sodium Chloride 10 ml 11/28/24 14:00 12/01/24 12:12 Central Line Flush IV PUSH 10 ml Q8HR EDMUNDO Administration Sodium Chloride 20 ml 11/28/24 11:53 Central Line Flush IV PUSH PRN PRN after blood draws Radiology Results: ITS Impressions Chest X-Ray 12/01/24 08:59 IMPRESSION: 1. Worsening right lung airspace disease. Small associated effusion not exc luded. 2. Persistent large left pleural effusion with associated basilar atelectasis and/or airspace disease. Labs Labs: Laboratory Results - last 24 hr 11/30/24 12/01/24 12/01/24 18:00 00:38 04:52 WBC 10.7 H RBC 4.95 Hgb 13.6 L Hct 45.5 MCV 91.9 MCH 27.5 MCHC 29.9 L RDW 17.0 H Plt Count 166 MPV 9.4 Puncture Site ABG pH ABG pCO2 ABG pO2 ABG PO2/FiO2 Ratio ABG HCO3 ABG O2 Saturation ABG O2 Content ABG Base Excess A-a Gradient Oxyhemoglobin Total Hemoglobin O2 Delivery Device O2 Liters/Min Minute Volume Vent Rate Vent Mode FiO2 Tidal Volume PEEP Peak Inspir Pressure Pressure Support Sodium 136 L Potassium 4.0 Chloride 95 L Carbon Dioxide 38 H Anion Gap 3 L BUN 44 H Creatinine 0.75 Estim Creat Clear Calc 156 Estimated GFR > 60 Glucose 223 H POC Capillary Glucose 242 H 240 H Calcium 8.3 L Total Bilirubin 0.8 AST 29 ALT 20 Alkaline Phosphatase 63 Total Protein 5.8 L Albumin 2.9 L 12/01/24 12/01/24 05:09 11:38 WBC RBC Hgb Hct MCV MCH MCHC RDW Plt Count MPV Puncture Site Artline ABG pH 7.448 ABG pCO2 54.5 H ABG pO2 81.2 ABG PO2/FiO2 Ratio 1.62 ABG HCO3 36.9 H ABG O2 Saturation 96.2 ABG O2 Content 18.9 ABG Base Excess 10.8 A-a Gradient 214.0 Oxyhemoglobin 94.9 Total Hemoglobin 14.1 O2 Delivery Device Ventilator O2 Liters/Min Not Reportable Minute Volume Not Reportable Vent Rate 20 Vent Mode Cmv FiO2 50 Tidal Volume 500 PEEP 12 Peak Inspir Pressure Not Reportable Pressure Support Not Reportable Sodium Potassium Chloride Carbon Dioxide Anion Gap BUN Creatinine Estim Creat Clear Calc Estimated GFR Glucose POC Capillary Glucose 226 H Calcium Total Bilirubin AST ALT Alkaline Phosphatase Total Protein Albumin Quality VTE Prophylaxis VTE prophylaxis: pharmacologic ordered
[2024-12-01] MEDS: MIDAZOLAM 100MG/NS 100ML(*CRX) 100 MG/100 ML BAG IV CONT (20:58)
[2024-12-02] VITALS (36 sets, daily range): BP systolic 94–148; BP diastolic 55–96; PULSE 78–99; RESP 20–22; TEMP 37.2–37.9; O2SAT 90–97
[2024-12-02] MEDS: IPRATROPIUM BR 0.02% INH SOLN 0.5 MG/2.5 ML VIAL INHALATION ×4 (02:30→20:03)
[2024-12-02] MEDS: ACETYLCYSTEINE 20% INHAL SOLN 800 MG/4 ML VIAL 200 MG INHALATION ×4 (02:30→20:03)
[2024-12-02] MEDS: CENTRAL LINE FLUSH 10 ML IV PUSH ×3 (04:59→21:17)
[2024-12-02] MEDS: CEFEPIME 2 GM in SODIUM CHLORIDE 0.9% IV 50 ML 100 ML IVPB ×3 (05:02→21:17)
[2024-12-02 05:03] LABS: Alveolar/Arterial O2 Gradient 141.8 mmHg; Fractional Inspired Oxygen 40 %; HCO3 ABG 39.0 mEq/l (22.0-26.0); Oxygen Content ABG 18.7 %vol (16.0-22.0); Oxygen Saturation ABG 94.6 % (95.0-100.0); PO2 ABG 73.0 mmHg (80.0-100.0); PO2 FiO2 Ratio Arterial Blood 1.83 %
[2024-12-02 05:05] LABS: PCO2 ABG 61.2 mmHg (35.0-45.0); Site Drawn ARTLINE
[2024-12-02 05:06] LABS: Arterial Blood Gas Ventilator rate 20 /MIN
[2024-12-02 05:07] LABS: Arterial Blood Gas Tidal Volume 500 ml
[2024-12-02 05:10] LABS: Hematocrit 45.3 % (42.0-52.0); Hemoglobin 13.4 g/dL (14.0-18.0); Mean Corpuscular HGB Conc 29.6 g/dl (32-36); Mean Corpuscular Hemoglobin 27.2 pg (26-34); Mean Corpuscular Volume 91.9 fl (80-100); Platelet Count Result 136 k/mm3 (150-375); Red Blood Count 4.93 M/mm3 (4.6-6.20); White Blood Count 9.5 K/mm3 (4.5-10.0)
[2024-12-02 05:23] LABS: Alanine Aminotransferase 35 U/L (6-50); Albumin Level 2.8 g/dL (3.5-5.1); Alkaline Phosphatase 69 U/L (38-126); Aspartate Amino Transferase 45 U/L (17-59); Bilirubin,Total 1.1 mg/dL (0.2-1.3); Blood Urea Nitrogen 44 mg/dL (9-20); Calcium 8.0 mg/dL (8.4-10.2); Chloride 95 mmol/L (98-107); Estimated CRCL calculation 161 ml/min; Estimated Glomerular Filt Rate > 60; Glucose 183 mg/dL (65-110); Potassium 3.9 mmol/L (3.4-5.0); Sodium 135 mmol/L (137-145); Total Protein 5.9 g/dL (6.3-8.2); Triglycerides 69 mg/dL (<150)
[2024-12-02 05:46] LABS: Magnesium 1.7 mg/dL (1.6-2.3)
[2024-12-02 05:55] LABS: Anion Gap 2 mmol/L (4-12); Carbon Dioxide 38 mmol/L (22-30)
[2024-12-02] MEDS: MAGNESIUM SULF 2 GM/WATER 50ML 2 GM/50 ML BAG IVPB (07:50)
[2024-12-02] MEDS: FUROSEMIDE INJ 100 MG/10 ML VIAL 80 MG IV PUSH (07:50)
[2024-12-02] MEDS: POTASSIUM CHLORIDE 20 MEQ PACKET (FOR LIQUID) FEED TUBE (07:51)
--- NOTE | 2024-12-02 08:00 | WPDINTPN ---
Progress Note: A&P Assessment and Plan (1) Acute on chronic respiratory failure with hypoxia and hypercapnia: Code(s): J96.21 - Acute and chronic respiratory failure with hypoxia; J96.22 - Acute and chronic respiratory failure with hypercapnia Status: Acute Assessment and Plan: Acute on chronic respiratory failure secondary to multifactorial combination of COPD, obesity hypoventilation syndrome, left-sided pneumonia, pulmonary edema, atelectasis 11/26: Patient was admitted for increasing/worsening dyspnea 1 day prior to admission. Patient was in the intermediate Unit, evaluated by pulmonology, has been noncompliant with his AVAPS/BiPAP. 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 Also was possibly delirious as he pulled out his IV lines and BiPAP mask. -was on propofol, dropped his blood pressures in the 40s systolic, propofol infusion were discontinued currently sedated with Versed and fentanyl Chest x-ray shows a consolidation versus atelectasis versus combination of 2 on the left side. Patient is a too big for CT scanner hence unable to evaluate 11/29 bronchoscopy was done. Minimal amount of secretions were seen. Chest x-ray reviewed this morning and shows improvement on the left side Currently on CMV mode of ventilation, 40% FiO2 and peep of 12. Wean oxygen. Decrease PEEP to 10 Discussed with nursing staff will plan to continue to elevate left side with pillows Continue bronchodilators, Pulmozyme and Mucomyst nebs Continue chest PT has been ordered Weaned off Solu-Medrol Sputum culture is growing Pseudomonas. Nasal MRSA screen was positive. Patient was on vancomycin earlier it was discontinued yesterday. On a antibiotics for pneumonia- cefepime Lasix IV will be continued (2) COPD exacerbation: Code(s): J44.1 - Chronic obstructive pulmonary disease with (acute) exacerbation Status: Acute Assessment and Plan: See above (3) Pneumonia: Code(s): J18.9 - Pneumonia, unspecified organism Status: Acute Assessment and Plan: See above (4) Hypotension: Code(s): I95.9 - Hypotension, unspecified Status: Acute Assessment and Plan: Patient dropped his blood pressure is likely related to propofol infuse and positive-pressure ventilation -required phenylephrine push and Levophed infusion Now off (5) Atrial fibrillation with RVR: Code(s): I48.91 - Unspecified atrial fibrillation Status: Acute Assessment and Plan: Patient has a history of AFib with RVR, currently rate controlled but remains in atrial fibrillation -continue Eliquis (6) Type 2 diabetes mellitus: Qualifiers: Diabetes mellitus fdc insulin use: without fdc use Diabetes mellitus complication status: without complication Qualified Code(s): E11.9 - Type 2 diabetes mellitus without complications Code(s): E11.9 - Type 2 diabetes mellitus without complications Status: Acute Assessment and Plan: Accu-Cheks and sliding scale insulin Increase Lantus dose (7) Essential hypertension: Code(s): I10 - Essential (primary) hypertension Status: Acute Assessment and Plan: Hold antihypertensive medications at this time (8) KATIE (obstructive sleep apnea): Code(s): G47.33 - Obstructive sleep apnea (adult) (pediatric) Status: Acute Assessment and Plan: Non compliant with his CPAP/AVAPS -currently intubated (9) Edema of abdominal wall: Code(s): R60.0 - Localized edema Status: Acute Assessment and Plan: Edema of the abdominal wall on the left side likely related to dependent edema as patient fevers to lay on that side Lasix will be continued (10) Hyperkalemia: Code(s): E87.5 - Hyperkalemia Status: Acute Assessment and Plan: Potassium level was elevated patient was given Lokelma Lasix. Patient now has normal potassium level. Monitor Plan DVT prophylaxis: Apixaban Stress ulcer prophylaxis: Protonix Nutrition: Continue tube feeding and go Code Status: Full code 12/01 Discussed and updated patient's daughter at bedside and answered all questions Critical Care Time Spent: 30 minutes Due to a high probability of clinically significant, life threatening deterioration, the patient required my highest level of preparedness to intervene emergently and I personally spent this critical care time directly and personally managing the patient. This critical care time included obtaining a history; examining the patient; pulse oximetry; ordering and review of studies; arranging urgent treatment with development of a management plan; evaluation of patient's response to treatment; frequent reassessment; and discussions with other providers. It was exclusive of separately billable procedures and treating other patients and teaching time. Please see Assessment and Plan section and the rest of the note for further information on patient assessment and treatment This dictation may have been done utilizing a voice recognition system. Attempts have been made to correct errors. However, there may be uncorrected grammatical, spelling, and recognitions errors present. Subjective Date/time seen: 12/02/24 Overnight events reviewed. Afebrile Continues to be on mechanical ventilation 12 PEEP and 40% FiO2 Tolerating tube feeds at goal Good urine output in response to diuretics Continues to be sedated with Versed and fentanyl Other Vitals acceptable Interval history: 11/28 intubation 11/29 bronchoscopy Review of Systems Review of Systems: ROS unobtainable: Yes unobtainable due to endotracheal tube, unobtainable due to medical condition and unobtainable due to mental status Exam Narrative: General: Significantly obese gentleman, currently intubated, sedated in no acute distress HEENT:? Pupils equal and reactive, sclera is injected, ETT in place Neck:? Thick and short neck Respiratory:? Decreased air entry bilaterally no wheezing. Breath sounds are improved on the left side but still less than as compared to right side Chest: Left breast is larger than the right, indurated, warm and erythematous compared to the right side Cardiac:? Distant heart sounds, irregularly irregular Abdomen:? Morbidly obese, indurated and form on the left side with pitting edema, right side is softer with less edema, according the os daughter patient prefers to lay on the left side, causing possible dependent edema and swelling Extremities:? Trace edema bilateral lower extremities, palpable pedal pulses Neuro:? Patient is intubated, sedated, does not open his eyes or follow simple commands for me but followed commands for the night nurse. He withdraws to pain. Skin:? Bruising noted on upper extremities, torso, chronic venous stasis changes on bilateral lower extremity Psych:? Unable to assess at this time Objective Data Vital Signs Vital Signs: Vital Signs - 24 hr 12/01/24 09:12/01/24 10:12/01/24 10:00 Temperature 37.4 C Pulse Rate 104 H 109 H 109 H Respiratory Rate 20 20 20 Blood Pressure 107/80 Pulse Oximetry 92 Oxygen Delivery Fraction of Inspired Oxygen 12/01/24 10:12/01/24 10:12/01/24 11:00 Temperature 37.4 C 37.5 C Pulse Rate 109 H 109 H 102 H Respiratory Rate 20 20 Blood Pressure 119/68 113/68 Pulse Oximetry 92 93 Oxygen Delivery Fraction of Inspired Oxygen 12/01/24 12:00 12/01/24 12:00 12/01/24 12:00 Temperature Pulse Rate 102 H 102 H Respiratory Rate 20 20 Blood Pressure Pulse Oximetry Oxygen Delivery Fraction of Inspired Oxygen 50 12/01/24 12:00 12/01/24 12:00 12/01/24 13:00 Temperature 37.5 C 37.4 C Pulse Rate 102 H 95 95 Respiratory Rate 20 20 Blood Pressure 114/69 106/67 Pulse Oximetry 96 96 Oxygen Delivery Fraction of Inspired Oxygen 12/01/24 13:47 12/01/24 13:55 12/01/24 14:00 Temperature 37.4 C Pulse Rate 92 100 91 Respiratory Rate 20 20 Blood Pressure 107/64 Pulse Oximetry 96 94 Oxygen Delivery Mechanical Ventilation Fraction of Inspired Oxygen 45 12/01/24 14:00 12/01/24 14:00 12/01/24 14:00 Temperature Pulse Rate 91 91 91 Respiratory Rate 20 20 Blood Pressure Pulse Oximetry Oxygen Delivery Fraction of Inspired Oxygen 12/01/24 14:00 12/01/24 15:00 12/01/24 16:00 Temperature 37.3 C Pulse Rate 90 94 95 Respiratory Rate 20 20 Blood Pressure 113/61 Pulse Oximetry 93 Oxygen Delivery Fraction of Inspired Oxygen 12/01/24 16:00 12/01/24 16:00 12/01/24 16:00 Temperature Pulse Rate 95 95 Respiratory Rate 20 20 Blood Pressure Pulse Oximetry Oxygen Delivery Fraction of Inspired Oxygen 45 12/01/24 16:00 12/01/24 16:10 12/01/24 17:00 Temperature 37.2 C 37.2 C Pulse Rate 95 100 93 Respiratory Rate 20 20 Blood Pressure 119/67 110/64 Pulse Oximetry 93 95 94 Oxygen Delivery Mechanical Ventilation Fraction of Inspired Oxygen 45 12/01/24 18:00 12/01/24 18:00 12/01/24 18:00 Temperature Pulse Rate 93 93 93 Respiratory Rate 20 20 Blood Pressure Pulse Oximetry Oxygen Delivery Fraction of Inspired Oxygen 12/01/24 18:00 12/01/24 20:00 12/01/24 20:00 Temperature 37.3 C 37.3 C Pulse Rate 93 84 Respiratory Rate 20 20 Blood Pressure 116/65 117/67 Pulse Oximetry 95 96 Oxygen Delivery Fraction of Inspired Oxygen 45 12/01/24 20:00 12/01/24 20:00 12/01/24 20:12 Temperature Pulse Rate 86 87 87 Respiratory Rate 20 20 20 Blood Pressure Pulse Oximetry Oxygen Delivery Fraction of Inspired Oxygen 12/01/24 20:15 12/01/24 20:35 12/01/24 20:45 Temperature Pulse Rate 87 82 88 Respiratory Rate 20 20 Blood Pressure Pulse Oximetry 97 97 Oxygen Delivery Mechanical Ventilation Mechanical Ventilation Fraction of Inspired Oxygen 40 40 12/01/24 20:45 12/01/24 20:57 12/01/24 20:57 Temperature Pulse Rate 92 85 85 Respiratory Rate 20 20 Blood Pressure Pulse Oximetry Oxygen Delivery Fraction of Inspired Oxygen 12/01/24 20:58 12/01/24 20:58 12/01/24 21:00 Temperature 37.3 C Pulse Rate 88 88 96 Respiratory Rate 20 20 20 Blood Pressure 112/67 Pulse Oximetry 94 Oxygen Delivery Fraction of Inspired Oxygen 12/01/24 22:00 12/01/24 22:00 12/01/24 22:00 Temperature 37.3 C Pulse Rate 91 94 94 Respiratory Rate 20 20 Blood Pressure 111/63 Pulse Oximetry 93 Oxygen Delivery Fraction of Inspired Oxygen 12/01/24 22:00 12/01/24 22:50 12/01/24 23:00 Temperature 37.2 C Pulse Rate 94 74 86 Respiratory Rate 20 20 Blood Pressure 110/60 Pulse Oximetry 95 96 Oxygen Delivery Mechanical Ventilation Fraction of Inspired Oxygen 40 12/01/24 23:53 12/01/24 23:54 12/02/24 00:00 Temperature Pulse Rate 82 83 Respiratory Rate 20 Blood Pressure Pulse Oximetry 95 Oxygen Delivery Mechanical Ventilation Fraction of Inspired Oxygen 40 40 12/02/24 00:00 12/02/24 00:00 12/02/24 00:00 Temperature 37.2 C Pulse Rate 83 83 83 Respiratory Rate 20 20 20 Blood Pressure 100/71 Pulse Oximetry 96 Oxygen Delivery Fraction of Inspired Oxygen 12/02/24 01:00 12/02/24 02:00 12/02/24 02:00 Temperature 37.2 C 37.3 C Pulse Rate 80 94 94 Respiratory Rate 20 20 Blood Pressure 118/75 124/82 Pulse Oximetry 97 97 Oxygen Delivery Fraction of Inspired Oxygen 12/02/24 02:00 12/02/24 02:00 12/02/24 02:30 Temperature Pulse Rate 94 94 78 Respiratory Rate 20 20 20 Blood Pressure Pulse Oximetry Oxygen Delivery Fraction of Inspired Oxygen 12/02/24 02:30 12/02/24 03:00 12/02/24 04:00 Temperature 37.2 C 37.2 C Pulse Rate 78 83 86 Respiratory Rate 20 20 Blood Pressure 96/62 L 104/67 Pulse Oximetry 97 96 95 Oxygen Delivery Mechanical Ventilation Fraction of Inspired Oxygen 40 12/02/24 04:00 12/02/24 04:00 12/02/24 04:00 Temperature Pulse Rate 92 83 Respiratory Rate 20 Blood Pressure Pulse Oximetry 95 Oxygen Delivery Mechanical Ventilation Fraction of Inspired Oxygen 40 40 12/02/24 04:00 12/02/24 04:00 12/02/24 04:53 Temperature Pulse Rate 83 83 80 Respiratory Rate 20 20 Blood Pressure Pulse Oximetry 95 Oxygen Delivery Mechanical Ventilation Fraction of Inspired Oxygen 40 12/02/24 05:00 12/02/24 06:00 12/02/24 06:00 Temperature 37.2 C 37.3 C Pulse Rate 84 82 81 Respiratory Rate 20 20 Blood Pressure 106/61 103/60 Pulse Oximetry 95 95 Oxygen Delivery Fraction of Inspired Oxygen 12/02/24 06:00 12/02/24 06:00 12/02/24 06:30 Temperature Pulse Rate 85 87 89 Respiratory Rate 20 20 20 Blood Pressure Pulse Oximetry Oxygen Delivery Fraction of Inspired Oxygen Intake/Output Intake/Output: Intake & Output 11/29/24 11/30/24 12/01/24 12/02/24 23:59 23:59 23:59 23:59 Intake Total 1883.9 2943.0 3796.9 1121.5 Output Total 4855 5400 6275 1300 Balance -2971.1 -2457.0 -2478.1 -178.5 Meds/Results Medications: Active Medications Generic Name Dose Route Start Last Admin Trade Name Freq PRN Reason Stop Dose Admin Acetaminophen 650 mg 11/26/24 14:25 11/26/24 14:46 Acetaminophen 325 Mg Tablet PO 650 mg Q6H PRN Administration Mild Pain (1-3) or Fever Acetylcysteine 200 mg 11/28/24 08:55 12/02/24 07:58 Acetylcysteine 20% Inhal Soln 800 Mg/4 Ml Vial INHALATION 200 mg Q6HRT EDMUNDO Administration Apixaban 5 mg 11/26/24 21:00 12/01/24 20:55 Apixaban 5 Mg Tablet PO 5 mg Q12HR EDMUNDO Administration Dextrose 12.5 gm 11/26/24 16:15 Dextrose 50% 25 Gm/50 Ml Syringe IV PUSH PRN PRN Hypoglycemia Protocol Glucagon 1 mg 11/26/24 16:15 Glucagon For Inj 1 Mg Vial IM PRN PRN Hypoglycemia Protocol Glucose 15 gm 11/26/24 16:15 Glucose Oral Gel 15 Gm Of Glucse In 37.5 Gm Tube PO PRN PRN Hypoglycemia Protocol Dextrose 1,000 mls @ 100 mls/hr 11/26/24 16:15 Dextrose 5% 1,000 Ml IVPB PRN PRN Hypoglycemia Protocol Fentanyl Citrate 2,500 mcg in 250 mls @ 10 mls/hr 11/28/24 06:55 12/02/24 06:30 Fentanyl 2,500 Mcg/Ns 250 Ml IV CONT 100 mcg/hr .Q25H EDMUNDO 10 mls/hr Protocol Titration 100 MCG/HR Midazolam HCl 100 mg in 100 mls @ 2 mls/hr 11/28/24 06:55 12/02/24 06:00 Versed 100 Mg/Ns 100 Ml IV CONT 2 mg/hr .Q50H EDMUNDO 2 mls/hr Protocol Titration 2 MG/HR Cefepime HCl 2 gm/ Sodium 50 mls @ 100 mls/hr 11/28/24 14:00 12/02/24 05:35 Chloride IVPB Infused Q8HR EDMUNDO Infusion Magnesium Sulfate 2 gm in 50 mls @ 25 mls/hr 12/02/24 07:26 12/02/24 07:50 Magnesium Sulf 2 Gm/Water 50ml IVPB 12/02/24 09:25 25 mls/hr ONCE ONE Administration Insulin Aspart 3 - 6 units 11/28/24 06:50 12/02/24 05:36 Insulin Aspart (*Bkc) 100 Units/Ml SUB-Q Not Given Q6HR [facility] Protocol Insulin Glargine 25 units 12/01/24 09:00 12/01/24 08:53 Insulin Glargine (*Bkc) 100 Units/Ml SUB-Q 25 units QAM EDMUNDO Administration Ipratropium [place] 0.5 mg 11/29/24 08:00 12/02/24 07:57 Ipratropium Br 0.02% Inh Soln 0.5 Mg/2.5 Ml Vial INHALATION 0.5 mg Q6HRT EDMUNDO Administration Levalbuterol HCl 1.25 mg 11/29/24 20:00 12/02/24 07:58 Levalbuterol Neb 1.25 Mg/3 Ml INHALATION 1.25 mg Q6HRT EDMUNDO Administration Multi-Ingred Cream/Lotion/Oil/Oint 1 applic 11/28/24 09:00 12/01/24 20:56 Mineral Oil/White Petrolatum Ointment EACH EYE 1 applic Q12HR EDMUNDO Administration Pantoprazole Sodium 40 mg 11/29/24 09:00 12/01/24 08:53 Pantoprazole Sodium Iv 40 Mg Vial IV PUSH 40 mg QAM EDMUNDO Administration Sertraline HCl 50 mg 11/27/24 09:00 11/28/24 12:06 Sertraline Hcl 50 Mg Tablet PO 50 mg On Hold: 11/29/24 08:16 DAILY EDMUNDO Administration Sodium Chloride 10 ml 11/28/24 14:00 12/02/24 04:59 Central Line Flush IV PUSH 10 ml Q8HR EDMUNDO Administration Sodium Chloride 20 ml 11/28/24 11:53 Central Line Flush IV PUSH PRN PRN after blood draws Radiology Results: ITS Impressions Chest X-Ray 12/02/24 07:36 IMPRESSION: 1. Decreasing hazy opacities in bilateral lower lung zones likely related to small posteriorly layering pleural effusions. 2. Persistent dense retrocardiac consolidation in the left lower lung zone which could represent atelectasis or pneumonia. Labs Labs: Laboratory Results - last 24 hr 12/01/24 12/01/24 12/01/24 11:38 18:01 23:03 WBC RBC Hgb Hct MCV MCH MCHC RDW Plt Count MPV Puncture Site ABG pH ABG pCO2 ABG pO2 ABG PO2/FiO2 Ratio ABG HCO3 ABG O2 Saturation ABG O2 Content ABG Base Excess A-a Gradient Oxyhemoglobin Total Hemoglobin O2 Delivery Device O2 Liters/Min Minute Volume Vent Rate Vent Mode FiO2 Tidal Volume PEEP Peak Inspir Pressure Pressure Support Sodium Potassium Chloride Carbon Dioxide Anion Gap BUN Creatinine Estim Creat Clear Calc Estimated GFR Glucose POC Capillary Glucose 226 H 222 H 192 H Calcium Phosphorus Magnesium Total Bilirubin AST ALT Alkaline Phosphatase Total Protein Albumin Triglycerides 12/02/24 12/02/24 04:57 04:58 WBC 9.5 RBC 4.93 Hgb 13.4 L Hct 45.3 MCV 91.9 MCH 27.2 MCHC 29.6 L RDW 17.0 H Plt Count 136 L MPV 9.3 Puncture Site Artline ABG pH 7.422 ABG pCO2 61.2 H* ABG pO2 73.0 L ABG PO2/FiO2 Ratio 1.83 ABG HCO3 39.0 H ABG O2 Saturation 94.6 L ABG O2 Content 18.7 ABG Base Excess 11.8 A-a Gradient 141.8 Oxyhemoglobin 93.1 Total Hemoglobin 14.3 O2 Delivery Device Ventilator O2 Liters/Min Not Reportable Minute Volume Not Reportable Vent Rate 20 Vent Mode Cmv FiO2 40 Tidal Volume 500 PEEP 12 Peak Inspir Pressure Not Reportable Pressure Support Not Reportable Sodium 135 L Potassium 3.9 Chloride 95 L Carbon Dioxide 38 H Anion Gap 2 L BUN 44 H Creatinine 0.71 Estim Creat Clear Calc 161 Estimated GFR > 60 Glucose 183 H POC Capillary Glucose Calcium 8.0 L Phosphorus 3.2 Magnesium 1.7 Total Bilirubin 1.1 AST 45 ALT 35 Alkaline Phosphatase 69 Total Protein 5.9 L Albumin 2.8 L Triglycerides 69 Quality VTE Prophylaxis VTE prophylaxis: pharmacologic ordered
[2024-12-02] MEDS: APIXABAN 5 MG TABLET PO ×2 (09:26→21:09)
[2024-12-02] MEDS: PANTOPRAZOLE SODIUM IV 40 MG VIAL IV PUSH (09:26)
[2024-12-02] MEDS: MINERAL OIL/WHITE PETROLATUM OINTMENT 1 APPLIC EACH EYE ×2 (09:27→21:09)
[2024-12-02] MEDS: INSULIN GLARGINE (*BKC) 100 UNITS/ML 25 UNITS SUB-Q (09:31)
--- NOTE | 2024-12-02 11:19 | PCNFU ---
Nutrition Follow-Up Complete: Suboptimal Energy Intake as related to mechanical vent as evidenced by NPO. Goal:Meet estimated nutritional needs Patient will continue current goal. Pt current nutrition is Vital HP at 70 ml/hr. Last recorded weight is 205.8 kg, down from 225 kcal on admit. Bowel Motility: Last reported BM 11/28 Labs Reviewed: BUN 44, Glu 183, Alb 2.8, Hgb 13.4 Meds Noted: Fentanyl, Versed, Lantus Additional Notes: Patient remains on a mechanical vent. Tube feeding is being tolerated of Vital HP at 70 ml/hr, providing 1584 kcal/134 gm protein/1287 gm water. Meeting 87% kcal needs at 22 kcal/kg IBW and 92% protein needs at 1.8 gm/kg IBW. Flush 30 ml q 4 hours. Agree with diet order. Will monitor weight, labs, skin, diet orders, meds every Thursday and Thursday.
--- NOTE | 2024-12-02 14:45 | P.PNIM_ITS ---
Progress Note: A&P Assessment and Plan (1) Acute on chronic respiratory failure with hypoxia and hypercapnia: Code(s): J96.21 - Acute and chronic respiratory failure with hypoxia; J96.22 - Acute and chronic respiratory failure with hypercapnia Status: Acute Assessment and Plan: Acute on chronic respiratory failure secondary to multifactorial combination of COPD, obesity hypoventilation syndrome, left-sided pneumonia, pulmonary edema, atelectasis 11/26: Patient was admitted for increasing/worsening dyspnea 1 day prior to admission. Patient was in the intermediate Unit, evaluated by pulmonology, has been noncompliant with his AVAPS/BiPAP. 11/28: anesthesiology resident was intubated due to cyanosis, hypo hypoxia, hypercapnia. Also was possibly delirious as he pulled out his IV lines and BiPAP mask. -was on propofol, dropped his blood pressures in the 40s systolic, propofol infusion were discontinued currently sedated with Versed and fentanyl Chest x-ray shows a consolidation versus atelectasis versus combination of 2 on the left side. Patient is a too big for CT scanner hence unable to evaluate 11/29 bronchoscopy was done. Minimal amount of secretions were seen. Chest x-ray reviewed this morning and shows improvement on the left side Currently on CMV mode of ventilation, 40% FiO2 and peep of 12. Wean oxygen. Decrease PEEP to 10 Discussed with nursing staff will plan to continue to elevate left side with pillows Continue bronchodilators, Pulmozyme and Mucomyst nebs Continue chest PT has been ordered Weaned off Solu-Medrol Sputum culture is growing Pseudomonas. Nasal MRSA screen was positive. Patient was on vancomycin earlier it was discontinued yesterday. 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 (2) COPD exacerbation: Code(s): J44.1 - Chronic obstructive pulmonary disease with (acute) exacerbation Status: Acute Assessment and Plan: See above (3) Pneumonia: Code(s): J18.9 - Pneumonia, unspecified organism Status: Acute Assessment and Plan: See above (4) Hypotension: Code(s): I95.9 - Hypotension, unspecified Status: Acute Assessment and Plan: Patient dropped his blood pressure is likely related to propofol infuse and positive-pressure ventilation -required phenylephrine push and Levophed infusion Now off (5) Atrial fibrillation with RVR: Code(s): I48.91 - Unspecified atrial fibrillation Status: Acute Assessment and Plan: Patient has a history of AFib with RVR, currently rate controlled but remains in atrial fibrillation -continue Eliquis (6) Type 2 diabetes mellitus: Qualifiers: Diabetes mellitus longterm insulin use: without longterm use Diabetes mellitus complication status: without complication Qualified Code(s): E11.9 - Type 2 diabetes mellitus without complications Code(s): E11.9 - Type 2 diabetes mellitus without complications Status: Acute Assessment and Plan: Accu-Cheks and sliding scale insulin Increase Lantus dose (7) Essential hypertension: Code(s): I10 - Essential (primary) hypertension Status: Acute Assessment and Plan: Hold antihypertensive medications at this time (8) KATIE (obstructive sleep apnea): Code(s): G47.33 - Obstructive sleep apnea (adult) (pediatric) Status: Acute Assessment and Plan: Non compliant with his CPAP/AVAPS -currently intubated (9) Edema of abdominal wall: Code(s): R60.0 - Localized edema Status: Acute Assessment and Plan: Edema of the abdominal wall on the left side likely related to dependent edema as patient fevers to lay on that side Lasix will be continued (10) Hyperkalemia: Code(s): E87.5 - Hyperkalemia Status: Acute Assessment and Plan: Potassium level was elevated patient was given Lokelma Lasix. Patient now has normal potassium level. Monitor Plan DVT prophylaxis: Apixaban Stress ulcer prophylaxis: Protonix Nutrition: Continue tube feeding and go Code Status: Full code Subjective Date/time seen: 12/02/24 14:45 Interval history: Still intubated and sedated Review of Systems Review of Systems: All systems are reviewed and are negative unless stated otherwise in the HPI. ROS unobtainable: Yes unobtainable due to endotracheal tube, unobtainable due to medical condition and unobtainable due to mental status Exam Narrative: General: Significantly obese gentleman, currently intubated, sedated in no acute distress HEENT:? Pupils equal and reactive, sclera is injected, ETT in place Neck:? Thick and short neck Respiratory:? Decreased air entry bilaterally no wheezing. Breath sounds are improved on the left side but still less than as compared to right side Chest: Left breast is larger than the right, indurated, warm and erythematous compared to the right side Cardiac:? Distant heart sounds, irregularly irregular Abdomen:? Morbidly obese, indurated and form on the left side with pitting edema, right side is softer with less edema, according the os daughter patient prefers to lay on the left side, causing possible dependent edema and swelling Extremities:? Trace edema bilateral lower extremities, palpable pedal pulses Neuro:? Patient is intubated, sedated, does not open his eyes or follow simple commands for me but followed commands for the night nurse. He withdraws to pain. Skin:? Bruising noted on upper extremities, torso, chronic venous stasis changes on bilateral lower extremity Psych:? Unable to assess at this time Objective Data Vital Signs Vital Signs: Vital Signs - 24 hr 12/01/24 15:00 12/01/24 16:00 12/01/24 16:00 Temperature 99.2 F Pulse Rate 94 95 Respiratory Rate 20 Blood Pressure 113/61 Pulse Oximetry 93 Oxygen Delivery Fraction of Inspired Oxygen 45 12/01/24 16:00 12/01/24 16:00 12/01/24 16:00 Temperature 99.0 F Pulse Rate 95 95 95 Respiratory Rate 20 20 20 Blood Pressure 119/67 Pulse Oximetry 93 Oxygen Delivery Fraction of Inspired Oxygen 12/01/24 16:10 12/01/24 17:00 12/01/24 18:00 Temperature 99 F Pulse Rate 100 93 93 Respiratory Rate 20 20 Blood Pressure 110/64 Pulse Oximetry 95 94 Oxygen Delivery Mechanical Ventilation Fraction of Inspired Oxygen 45 12/01/24 18:00 12/01/24 18:00 12/01/24 18:00 Temperature 99.1 F Pulse Rate 93 93 93 Respiratory Rate 20 20 Blood Pressure 116/65 Pulse Oximetry 95 Oxygen Delivery Fraction of Inspired Oxygen 12/01/24 20:00 12/01/24 20:00 12/01/24 20:00 Temperature 99.1 F Pulse Rate 84 86 Respiratory Rate 20 20 Blood Pressure 117/67 Pulse Oximetry 96 Oxygen Delivery Fraction of Inspired Oxygen 45 12/01/24 20:00 12/01/24 20:12 12/01/24 20:15 Temperature Pulse Rate 87 87 87 Respiratory Rate 20 20 Blood Pressure Pulse Oximetry 97 Oxygen Delivery Mechanical Ventilation Fraction of Inspired Oxygen 40 12/01/24 20:35 12/01/24 20:45 12/01/24 20:45 Temperature Pulse Rate 82 88 92 Respiratory Rate 20 20 Blood Pressure Pulse Oximetry 97 Oxygen Delivery Mechanical Ventilation Fraction of Inspired Oxygen 40 12/01/24 20:57 12/01/24 20:57 12/01/24 20:58 Temperature Pulse Rate 85 85 88 Respiratory Rate 20 20 20 Blood Pressure Pulse Oximetry Oxygen Delivery Fraction of Inspired Oxygen 12/01/24 20:58 12/01/24 21:00 12/01/24 22:00 Temperature 99.1 F Pulse Rate 88 96 91 Respiratory Rate 20 20 Blood Pressure 112/67 Pulse Oximetry 94 Oxygen Delivery Fraction of Inspired Oxygen 12/01/24 22:00 12/01/24 22:00 12/01/24 22:00 Temperature 99.1 F Pulse Rate 94 94 94 Respiratory Rate 20 20 20 Blood Pressure 111/63 Pulse Oximetry 93 Oxygen Delivery Fraction of Inspired Oxygen 12/01/24 22:50 12/01/24 23:00 12/01/24 23:53 Temperature 98.9 F Pulse Rate 74 86 Respiratory Rate 20 Blood Pressure 110/60 Pulse Oximetry 95 96 Oxygen Delivery Mechanical Ventilation Fraction of Inspired Oxygen 40 40 12/01/24 23:54 12/02/24 00:00 12/02/24 00:00 Temperature 98.9 F Pulse Rate 82 83 83 Respiratory Rate 20 20 Blood Pressure 100/71 Pulse Oximetry 95 96 Oxygen Delivery Mechanical Ventilation Fraction of Inspired Oxygen 40 12/02/24 00:00 12/02/24 00:00 12/02/24 01:00 Temperature 99.0 F Pulse Rate 83 83 80 Respiratory Rate 20 20 20 Blood Pressure 118/75 Pulse Oximetry 97 Oxygen Delivery Fraction of Inspired Oxygen 12/02/24 02:00 12/02/24 02:00 12/02/24 02:00 Temperature 99.2 F Pulse Rate 94 94 94 Respiratory Rate 20 20 Blood Pressure 124/82 Pulse Oximetry 97 Oxygen Delivery Fraction of Inspired Oxygen 12/02/24 02:00 12/02/24 02:30 12/02/24 02:30 Temperature Pulse Rate 94 78 78 Respiratory Rate 20 20 Blood Pressure Pulse Oximetry 97 Oxygen Delivery Mechanical Ventilation Fraction of Inspired Oxygen 40 12/02/24 03:00 12/02/24 04:00 12/02/24 04:00 Temperature 99 F 98.9 F Pulse Rate 83 86 Respiratory Rate 20 20 Blood Pressure 96/62 L 104/67 Pulse Oximetry 96 95 Oxygen Delivery Fraction of Inspired Oxygen 40 12/02/24 04:00 12/02/24 04:00 12/02/24 04:00 Temperature Pulse Rate 92 83 83 Respiratory Rate 20 20 Blood Pressure Pulse Oximetry 95 Oxygen Delivery Mechanical Ventilation Fraction of Inspired Oxygen 40 12/02/24 04:00 12/02/24 04:53 12/02/24 05:00 Temperature 99 F Pulse Rate 83 80 84 Respiratory Rate 20 20 Blood Pressure 106/61 Pulse Oximetry 95 95 Oxygen Delivery Mechanical Ventilation Fraction of Inspired Oxygen 40 12/02/24 06:00 12/02/24 06:00 12/02/24 06:00 Temperature 99.1 F Pulse Rate 82 81 85 Respiratory Rate 20 20 Blood Pressure 103/60 Pulse Oximetry 95 Oxygen Delivery Fraction of Inspired Oxygen 12/02/24 06:00 12/02/24 06:30 12/02/24 07:00 Temperature 99.5 F Pulse Rate 87 89 88 Respiratory Rate 20 20 20 Blood Pressure 134/79 Pulse Oximetry 94 Oxygen Delivery Fraction of Inspired Oxygen 12/02/24 08:00 12/02/24 08:00 12/02/24 08:00 Temperature Pulse Rate 88 88 Respiratory Rate 20 Blood Pressure Pulse Oximetry 94 Oxygen Delivery Mechanical Ventilation Fraction of Inspired Oxygen 45 40 12/02/24 08:00 12/02/24 08:00 12/02/24 08:02 Temperature Pulse Rate 88 88 87 Respiratory Rate 20 20 20 Blood Pressure Pulse Oximetry Oxygen Delivery Fraction of Inspired Oxygen 12/02/24 08:02 12/02/24 08:12 12/02/24 10:00 Temperature Pulse Rate 87 84 99 Respiratory Rate 20 20 Blood Pressure Pulse Oximetry 94 Oxygen Delivery Mechanical Ventilation Fraction of Inspired Oxygen 40 12/02/24 10:00 12/02/24 10:00 12/02/24 10:00 Temperature 99.5 F Pulse Rate 99 95 82 Respiratory Rate 20 22 H Blood Pressure 148/96 H Pulse Oximetry 95 Oxygen Delivery Fraction of Inspired Oxygen 12/02/24 11:15 12/02/24 12:00 12/02/24 12:00 Temperature Pulse Rate 94 92 95 Respiratory Rate 20 20 Blood Pressure Pulse Oximetry 95 Oxygen Delivery Mechanical Ventilation Fraction of Inspired Oxygen 40 12/02/24 12:00 12/02/24 12:00 12/02/24 12:00 Temperature Pulse Rate 90 95 Respiratory Rate 20 Blood Pressure Pulse Oximetry 95 Oxygen Delivery Mechanical Ventilation Fraction of Inspired Oxygen 40 40 12/02/24 12:00 12/02/24 13:25 12/02/24 13:25 Temperature 99.5 F Pulse Rate 90 92 92 Respiratory Rate 20 20 Blood Pressure 101/61 Pulse Oximetry 94 95 Oxygen Delivery Mechanical Ventilation Fraction of Inspired Oxygen 40 12/02/24 13:40 12/02/24 14:00 12/02/24 14:00 Temperature Pulse Rate 95 96 96 Respiratory Rate 20 20 20 Blood Pressure Pulse Oximetry Oxygen Delivery Fraction of Inspired Oxygen 12/02/24 14:00 12/02/24 14:00 Temperature 99.7 F H Pulse Rate 96 96 Respiratory Rate 20 Blood Pressure 97/56 L Pulse Oximetry 92 Oxygen Delivery Fraction of Inspired Oxygen Intake/Output Intake/Output: Intake & Output 11/29/24 11/30/24 12/01/24 12/02/24 23:59 23:59 23:59 23:59 Intake Total 1883.9 2943.0 3796.9 1212.5 Output Total 4855 5400 6275 1300 Balance -2971.1 -2457.0 -2478.1 -87.5 Meds/Results Medications: Active Medications Generic Name Dose Route Start Last Admin Trade Name Freq PRN Reason Stop Dose Admin Acetaminophen 650 mg 11/26/24 14:25 11/26/24 14:46 Acetaminophen 325 Mg Tablet PO 650 mg Q6H PRN Administration Mild Pain (1-3) or Fever Acetylcysteine 200 mg 11/28/24 08:55 12/02/24 13:23 Acetylcysteine 20% Inhal Soln 800 Mg/4 Ml Vial INHALATION 200 mg Q6HRT EDMUNDO Administration Apixaban 5 mg 11/26/24 21:00 12/02/24 09:26 Apixaban 5 Mg Tablet PO 5 mg Q12HR EDMUNDO Administration Dextrose 12.5 gm 11/26/24 16:15 Dextrose 50% 25 Gm/50 Ml Syringe IV PUSH PRN PRN Hypoglycemia Protocol Glucagon 1 mg 11/26/24 16:15 Glucagon For Inj 1 Mg Vial IM PRN PRN Hypoglycemia Protocol Glucose 15 gm 11/26/24 16:15 Glucose Oral Gel 15 Gm Of Glucse In 37.5 Gm Tube PO PRN PRN Hypoglycemia Protocol Dextrose 1,000 mls @ 100 mls/hr 11/26/24 16:15 Dextrose 5% 1,000 Ml IVPB PRN PRN Hypoglycemia Protocol Fentanyl Citrate 2,500 mcg in 250 mls @ 10 mls/hr 11/28/24 06:55 12/02/24 14:00 Fentanyl 2,500 Mcg/Ns 250 Ml IV CONT 100 mcg/hr .Q25H EDMUNDO 10 mls/hr Protocol Titration 100 MCG/HR Midazolam HCl 100 mg in 100 mls @ 2 mls/hr 11/28/24 06:55 12/02/24 14:00 Versed 100 Mg/Ns 100 Ml IV CONT 2 mg/hr .Q50H EDMUNDO 2 mls/hr Protocol Titration 2 MG/HR Cefepime HCl 2 gm/ Sodium 50 mls @ 100 mls/hr 11/28/24 14:00 12/02/24 14:12 Chloride IVPB 100 mls/hr Q8HR EDMUNDO Administration Insulin Aspart 3 - 6 units 11/28/24 06:50 12/02/24 12:10 Insulin Aspart (*Bkc) 100 Units/Ml SUB-Q Not Given Q6HR EDMNUDO Protocol Insulin Glargine 25 units 12/01/24 09:00 12/02/24 09:31 Insulin Glargine (*Bkc) 100 Units/Ml SUB-Q 25 units QAM EDMUNDO Administration Ipratropium [place] 0.5 mg 11/29/24 08:00 12/02/24 13:23 Ipratropium Br 0.02% Inh Soln 0.5 Mg/2.5 Ml Vial INHALATION 0.5 mg Q6HRT EDMUNDO Administration Levalbuterol HCl 1.25 mg 11/29/24 20:00 12/02/24 13:23 Levalbuterol Neb 1.25 Mg/3 Ml INHALATION 1.25 mg Q6HRT EDMUNDO Administration Multi-Ingred Cream/Lotion/Oil/Oint 1 applic 11/28/24 09:00 12/02/24 09:27 Mineral Oil/White Petrolatum Ointment EACH EYE 1 applic Q12HR EDMUNDO Administration Pantoprazole Sodium 40 mg 11/29/24 09:00 12/02/24 09:26 Pantoprazole Sodium Iv 40 Mg Vial IV PUSH 40 mg QAM EDMUNDO Administration Sertraline HCl 50 mg 11/27/24 09:00 11/28/24 12:06 Sertraline Hcl 50 Mg Tablet PO 50 mg On Hold: 11/29/24 08:16 DAILY EDMUNDO Administration Sodium Chloride 10 ml 11/28/24 14:00 12/02/24 14:13 Central Line Flush IV PUSH 10 ml Q8HR EDMUNDO Administration Sodium Chloride 20 ml 11/28/24 11:53 Central Line Flush IV PUSH PRN PRN after blood draws Radiology Results: ITS Impressions Chest X-Ray 12/02/24 07:36 IMPRESSION: 1. Decreasing hazy opacities in bilateral lower lung zones likely related to small posteriorly layering pleural effusions. 2. Persistent dense retrocardiac consolidation in the left lower lung zone which could represent atelectasis or pneumonia. Labs Labs: Laboratory Results - last 24 hr 12/01/24 12/01/24 12/02/24 18:01 23:03 04:57 WBC 9.5 RBC 4.93 Hgb 13.4 L Hct 45.3 MCV 91.9 MCH 27.2 MCHC 29.6 L RDW 17.0 H Plt Count 136 L MPV 9.3 Puncture Site ABG pH ABG pCO2 ABG pO2 ABG PO2/FiO2 Ratio ABG HCO3 ABG O2 Saturation ABG O2 Content ABG Base Excess A-a Gradient Oxyhemoglobin Total Hemoglobin O2 Delivery Device O2 Liters/Min Minute Volume Vent Rate Vent Mode FiO2 Tidal Volume PEEP Peak Inspir Pressure Pressure Support Sodium 135 L Potassium 3.9 Chloride 95 L Carbon Dioxide 38 H Anion Gap 2 L BUN 44 H Creatinine 0.71 Estim Creat Clear Calc 161 Estimated GFR > 60 Glucose 183 H POC Capillary Glucose 222 H 192 H Calcium 8.0 L Phosphorus 3.2 Magnesium 1.7 Total Bilirubin 1.1 AST 45 ALT 35 Alkaline Phosphatase 69 Total Protein 5.9 L Albumin 2.8 L Triglycerides 69 12/02/24 12/02/24 04:58 11:46 WBC RBC Hgb Hct MCV MCH MCHC RDW Plt Count MPV Puncture Site Artline ABG pH 7.422 ABG pCO2 61.2 H* ABG pO2 73.0 L ABG PO2/FiO2 Ratio 1.83 ABG HCO3 39.0 H ABG O2 Saturation 94.6 L ABG O2 Content 18.7 ABG Base Excess 11.8 A-a Gradient 141.8 Oxyhemoglobin 93.1 Total Hemoglobin 14.3 O2 Delivery Device Ventilator O2 Liters/Min Not Reportable Minute Volume Not Reportable Vent Rate 20 Vent Mode Cmv FiO2 40 Tidal Volume 500 PEEP 12 Peak Inspir Pressure Not Reportable Pressure Support Not Reportable Sodium Potassium Chloride Carbon Dioxide Anion Gap BUN Creatinine Estim Creat Clear Calc Estimated GFR Glucose POC Capillary Glucose 187 H Calcium Phosphorus Magnesium Total Bilirubin AST ALT Alkaline Phosphatase Total Protein Albumin Triglycerides Quality VTE Prophylaxis VTE prophylaxis: pharmacologic ordered
[2024-12-02] MEDS: FENTANYL 2,500MCG/NS250ML(*CRX 2,500 MCG/250 ML BAG 10 MCG IV CONT (14:57)
[2024-12-03] VITALS (68 sets, daily range): BP systolic 102–158; BP diastolic 39–105; PULSE 77–98; RESP 18–26; TEMP 36.9–38.2; O2SAT 87–98
[2024-12-03] MEDS: ACETAMINOPHEN 325 MG TABLET 650 MG PO (00:26)
[2024-12-03] MEDS: ACETYLCYSTEINE 20% INHAL SOLN 800 MG/4 ML VIAL 200 MG INHALATION ×4 (03:05→19:34)
[2024-12-03] MEDS: IPRATROPIUM BR 0.02% INH SOLN 0.5 MG/2.5 ML VIAL INHALATION ×4 (03:05→19:33)
[2024-12-03] MEDS: CEFEPIME 2 GM in SODIUM CHLORIDE 0.9% IV 50 ML 100 ML IVPB ×3 (05:30→21:36)
[2024-12-03] MEDS: CENTRAL LINE FLUSH 10 ML IV PUSH ×3 (05:31→22:00)
[2024-12-03] MEDS: CENTRAL LINE FLUSH 20 ML IV PUSH (05:31)
[2024-12-03 05:32] LABS: Alveolar/Arterial O2 Gradient 152.5 mmHg; Arterial Blood Gas Ventilator rate 20 /MIN; Carboxyhemoglobin 1.7 % THb (0-2.0); Fractional Inspired Oxygen 40 %; HCO3 ABG 40.0 mEq/l (22.0-26.0); Methemoglobin ABG 0.1 %THb (0-1.5); Oxygen Content ABG 18.8 %vol (16.0-22.0); Oxygen Saturation ABG 94.2 % (95.0-100.0); PCO2 ABG 56.2 mmHg (35.0-45.0); PO2 ABG 68.1 mmHg (80.0-100.0); PO2 FiO2 Ratio Arterial Blood 1.70 %; Reduced Hemoglobin 5.8 %THb (0-5.0); Site Drawn ARTLINE
[2024-12-03 05:33] LABS: Arterial Blood Gas Tidal Volume 500 ml
[2024-12-03 05:45] LABS: Hematocrit 45.7 % (42.0-52.0); Hemoglobin 13.4 g/dL (14.0-18.0); Immature Granulocyte Percent A 0.4 % (0-0.5); Immature Platelet Fraction Pct 3.1 % (0.9-11.2); Lymphocytes Absolute Auto 1.62 K/mm3 (0.9-3.2); Mean Corpuscular HGB Conc 29.3 g/dl (32-36); Mean Corpuscular Hemoglobin 27.1 pg (26-34); Mean Corpuscular Volume 92.5 fl (80-100); Nucleated Red Blood Cells Absolute Auto 0.000 K/mm3 (0.0-0.012); Nucleated Red Blood Cells Perc 0.0 % (0.0-0.2); Platelet Count Result 128 k/mm3 (150-375); Red Blood Count 4.94 M/mm3 (4.6-6.20); White Blood Count 9.8 K/mm3 (4.5-10.0)
[2024-12-03 06:09] LABS: Alanine Aminotransferase 40 U/L (6-50); Albumin Level 2.7 g/dL (3.5-5.1); Alkaline Phosphatase 71 U/L (38-126); Aspartate Amino Transferase 38 U/L (17-59); Bilirubin,Total 1.6 mg/dL (0.2-1.3); Blood Urea Nitrogen 48 mg/dL (9-20); Calcium 8.0 mg/dL (8.4-10.2); Chloride 92 mmol/L (98-107); Estimated CRCL calculation 164 ml/min; Estimated Glomerular Filt Rate > 60; Glucose 142 mg/dL (65-110); Potassium 3.6 mmol/L (3.4-5.0); Sodium 135 mmol/L (137-145); Total Protein 5.9 g/dL (6.3-8.2)
[2024-12-03 06:28] LABS: Hypochromasia 1+
[2024-12-03 06:29] LABS: Anisocytosis 1+; Schistocytes None Seen; Target Cells 1+
[2024-12-03 06:35] LABS: Carbon Dioxide > 40 mmol/L (22-30)
[2024-12-03] MEDS: POTASSIUM CHLORIDE 20 MEQ PACKET (FOR LIQUID) 40 MEQ FEED TUBE ×2 (08:00→12:32)
--- NOTE | 2024-12-03 08:25 | P.PNINT_ITS ---
Progress Note: A&P Assessment and Plan (1) Acute on chronic respiratory failure with hypoxia and hypercapnia: Code(s): J96.21 - Acute and chronic respiratory failure with hypoxia; J96.22 - Acute and chronic respiratory failure with hypercapnia Status: Acute Assessment and Plan: Acute on chronic respiratory failure secondary to multifactorial combination of COPD, obesity hypoventilation syndrome, left-sided pneumonia, pulmonary edema, atelectasis 11/26: Patient was admitted for increasing/worsening dyspnea 1 day prior to admission. Patient was in the intermediate Unit, evaluated by pulmonology, has been noncompliant with his AVAPS/BiPAP. 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 Also was possibly delirious as he pulled out his IV lines and BiPAP mask. -was on propofol, dropped his blood pressures in the 40s systolic, propofol infusion were discontinued currently sedated with Versed and fentanyl Chest x-ray shows a consolidation versus atelectasis versus combination of 2 on the left side. Patient is a too big for CT scanner hence unable to evaluate 11/29 bronchoscopy was done. Minimal amount of secretions were seen. Chest x-ray reviewed this morning and shows improvement on the left side Currently on CMV mode of ventilation, 40% FiO2 and peep of 10. Wean oxygen. Continue to elevate left side with pillows Continue bronchodilators, Pulmozyme and Mucomyst nebs Continue chest PT has been ordered Weaned off Solu-Medrol Sputum culture is growing Pseudomonas. Nasal MRSA screen was positive. Patient was on vancomycin earlier it was discontinued yesterday. On a antibiotics for pneumonia- cefepime Lasix IV will be continued Not ready for weaning at this point but getting close. Will try to get PEEP down to 8 before doing a weaning trial (2) COPD exacerbation: Code(s): J44.1 - Chronic obstructive pulmonary disease with (acute) exacerbation Status: Acute Assessment and Plan: See above (3) Pneumonia: Code(s): J18.9 - Pneumonia, unspecified organism Status: Acute Assessment and Plan: See above (4) Hypotension: Code(s): I95.9 - Hypotension, unspecified Status: Acute Assessment and Plan: Patient dropped his blood pressure is likely related to propofol infuse and positive-pressure ventilation -required phenylephrine push and Levophed infusion Now off (5) Atrial fibrillation with RVR: Code(s): I48.91 - Unspecified atrial fibrillation Status: Acute Assessment and Plan: Patient has a history of AFib with RVR, currently rate controlled but remains in atrial fibrillation -continue Eliquis (6) Type 2 diabetes mellitus: Qualifiers: Diabetes mellitus precision grinder external insulin use: without precision grinder external use Diabetes mellitus complication status: without complication Qualified Code(s): E11.9 - Type 2 diabetes mellitus without complications Code(s): E11.9 - Type 2 diabetes mellitus without complications Status: Acute Assessment and Plan: Accu-Cheks and sliding scale insulin Increase Lantus dose (7) Essential hypertension: Code(s): I10 - Essential (primary) hypertension Status: Acute Assessment and Plan: Hold antihypertensive medications at this time (8) KATIE (obstructive sleep apnea): Code(s): G47.33 - Obstructive sleep apnea (adult) (pediatric) Status: Acute Assessment and Plan: Non compliant with his CPAP/AVAPS -currently intubated (9) Edema of abdominal wall: Code(s): R60.0 - Localized edema Status: Acute Assessment and Plan: Edema of the abdominal wall on the left side likely related to dependent edema as patient fevers to lay on that side Lasix will be continued (10) Electrolyte abnormality: Code(s): E87.8 - Other disorders of electrolyte and fluid balance, not elsewhere classified Status: Acute Assessment and Plan: Potassium replacement ordered Plan DVT prophylaxis: Apixaban Stress ulcer prophylaxis: Protonix Nutrition: Continue tube feeding at goal rate Code Status: Full code 12/01 Discussed and updated patient's daughter at bedside and answered all questions Critical Care Time Spent: 30 minutes Due to a high probability of clinically significant, life threatening deterioration, the patient required my highest level of preparedness to intervene emergently and I personally spent this critical care time directly and personally managing the patient. This critical care time included obtaining a history; examining the patient; pulse oximetry; ordering and review of studies; arranging urgent treatment with development of a management plan; evaluation of patient's response to treatment; frequent reassessment; and discussions with other providers. It was exclusive of separately billable procedures and treating other patients and teaching time. Please see Assessment and Plan section and the rest of the note for further information on patient assessment and treatment This dictation may have been done utilizing a voice recognition system. Attempts have been made to correct errors. However, there may be uncorrected grammatical, spelling, and recognitions errors present. Subjective Date/time seen: 12/03/24 Overnight events reviewed. Afebrile Continues to be on mechanical ventilation 10 PEEP and 40% FiO2 Tolerating tube feeds at goal Good urine output in response to diuretics Continues to be sedated with Versed and fentanyl Other Vitals acceptable Interval history: 11/28 intubation 11/29 bronchoscopy Review of Systems Review of Systems: ROS unobtainable: Yes unobtainable due to endotracheal tube, unobtainable due to medical condition and unobtainable due to mental status Exam Narrative: General: Significantly obese gentleman, currently intubated, sedated in no acute distress HEENT:? Pupils equal and reactive, sclera is injected, ETT in place Neck:? Thick and short neck Respiratory:? Decreased air entry bilaterally no wheezing. Breath sounds are improved on the left side but still less than as compared to right side Chest: Left breast is larger than the right, indurated, warm and erythematous compared to the right side Cardiac:? Distant heart sounds, irregularly irregular Abdomen:? Morbidly obese, indurated and form on the left side with pitting edema, right side is softer with less edema, according the os daughter patient prefers to lay on the left side, causing possible dependent edema and swelling Extremities:? Trace edema bilateral lower extremities, palpable pedal pulses Neuro:? Patient is intubated, sedated, does not open his eyes or follow simple commands for me but followed commands for the night nurse. He withdraws to pain. Skin:? Bruising noted on upper extremities, torso, chronic venous stasis changes on bilateral lower extremity Psych:? Unable to assess at this time Objective Data Vital Signs Vital Signs: Vital Signs - 24 hr 12/02/24 10:12/02/24 10:00 12/02/24 10:00 Temperature Pulse Rate 99 99 95 Respiratory Rate 20 20 Blood Pressure Pulse Oximetry Oxygen Delivery Fraction of Inspired Oxygen 12/02/24 10:12/02/24 11:15 12/02/24 12:00 Temperature 37.5 C Pulse Rate 82 94 92 Respiratory Rate 22 H 20 Blood Pressure 148/96 H Pulse Oximetry 95 95 Oxygen Delivery Mechanical Ventilation Fraction of Inspired Oxygen 40 12/02/24 12:00 12/02/24 12:00 12/02/24 12:00 Temperature Pulse Rate 95 90 95 Respiratory Rate 20 20 Blood Pressure Pulse Oximetry 95 Oxygen Delivery Mechanical Ventilation Fraction of Inspired Oxygen 40 12/02/24 12:00 12/02/24 12:00 12/02/24 13:25 Temperature 37.5 C Pulse Rate 90 92 Respiratory Rate 20 Blood Pressure 101/61 Pulse Oximetry 94 95 Oxygen Delivery Mechanical Ventilation Fraction of Inspired Oxygen 40 40 12/02/24 13:25 12/02/24 13:40 12/02/24 14:00 Temperature Pulse Rate 92 95 96 Respiratory Rate 20 20 20 Blood Pressure Pulse Oximetry Oxygen Delivery Fraction of Inspired Oxygen 12/02/24 14:00 12/02/24 14:00 12/02/24 14:00 Temperature 37.6 C H Pulse Rate 96 96 96 Respiratory Rate 20 20 Blood Pressure 97/56 L Pulse Oximetry 92 Oxygen Delivery Fraction of Inspired Oxygen 12/02/24 14:57 12/02/24 14:57 12/02/24 16:00 Temperature Pulse Rate 95 95 95 Respiratory Rate 20 20 20 Blood Pressure Pulse Oximetry 94 Oxygen Delivery Mechanical Ventilation Fraction of Inspired Oxygen 40 12/02/24 16:00 12/02/24 16:00 12/02/24 16:00 Temperature 37.6 C Pulse Rate 95 88 Respiratory Rate 20 Blood Pressure 102/62 Pulse Oximetry 94 Oxygen Delivery Fraction of Inspired Oxygen 40 12/02/24 16:00 12/02/24 16:00 12/02/24 16:52 Temperature Pulse Rate 95 95 94 Respiratory Rate 20 20 Blood Pressure Pulse Oximetry 95 Oxygen Delivery Mechanical Ventilation Fraction of Inspired Oxygen 40 12/02/24 18:00 12/02/24 18:00 12/02/24 18:00 Temperature 37.7 C H Pulse Rate 94 89 86 Respiratory Rate 20 20 Blood Pressure 116/82 Pulse Oximetry 94 Oxygen Delivery Fraction of Inspired Oxygen 12/02/24 18:00 12/02/24 19:30 12/02/24 19:43 Temperature 37.7 C H 37.8 C H Pulse Rate 88 85 91 Respiratory Rate 20 20 20 Blood Pressure 94/55 L Pulse Oximetry 95 Oxygen Delivery Fraction of Inspired Oxygen 12/02/24 20:00 12/02/24 20:00 12/02/24 20:00 Temperature Pulse Rate 92 92 88 Respiratory Rate 20 20 Blood Pressure Pulse Oximetry Oxygen Delivery Fraction of Inspired Oxygen 12/02/24 20:00 12/02/24 20:03 12/02/24 20:04 Temperature Pulse Rate 88 91 Respiratory Rate 20 Blood Pressure Pulse Oximetry 93 Oxygen Delivery Mechanical Ventilation Fraction of Inspired Oxygen 40 40 12/02/24 20:22 12/02/24 20:30 12/02/24 21:00 Temperature 37.8 C H Pulse Rate 94 92 Respiratory Rate 20 20 Blood Pressure 103/64 Pulse Oximetry 94 94 Oxygen Delivery Mechanical Ventilation Fraction of Inspired Oxygen 40 12/02/24 21:00 12/02/24 22:00 12/02/24 22:00 Temperature 37.8 C H Pulse Rate 91 86 86 Respiratory Rate 20 20 20 Blood Pressure 110/63 Pulse Oximetry 92 Oxygen Delivery Fraction of Inspired Oxygen 12/02/24 22:00 12/02/24 22:00 12/02/24 23:00 Temperature 37.7 C H 37.8 C H Pulse Rate 86 86 96 Respiratory Rate 20 20 Blood Pressure 99/57 L 102/62 Pulse Oximetry 90 90 Oxygen Delivery Fraction of Inspired Oxygen 12/02/24 23:01 12/02/24 23:52 12/03/24 00:00 Temperature 37.9 C H Pulse Rate 93 87 91 Respiratory Rate 20 20 Blood Pressure 110/70 Pulse Oximetry 94 95 Oxygen Delivery Mechanical Ventilation Fraction of Inspired Oxygen 40 12/03/24 00:00 12/03/24 00:00 12/03/24 00:00 Temperature Pulse Rate 91 84 Respiratory Rate 20 Blood Pressure Pulse Oximetry Oxygen Delivery Fraction of Inspired Oxygen 40 12/03/24 00:00 12/03/24 00:26 12/03/24 01:26 Temperature 38.0 C H 38.1 C H Pulse Rate 91 Respiratory Rate 20 Blood Pressure Pulse Oximetry 93 Oxygen Delivery Mechanical Ventilation Fraction of Inspired Oxygen 40 12/03/24 02:00 12/03/24 02:00 12/03/24 02:00 Temperature 38.2 C H Pulse Rate 83 83 83 Respiratory Rate 20 20 Blood Pressure 102/60 Pulse Oximetry 94 Oxygen Delivery Fraction of Inspired Oxygen 12/03/24 02:00 12/03/24 03:00 12/03/24 03:05 Temperature 38.1 C H Pulse Rate 83 89 89 Respiratory Rate 20 20 20 Blood Pressure 110/65 Pulse Oximetry 91 Oxygen Delivery Fraction of Inspired Oxygen 12/03/24 03:06 12/03/24 03:15 12/03/24 03:45 Temperature Pulse Rate 85 91 90 Respiratory Rate 20 20 Blood Pressure Pulse Oximetry 94 Oxygen Delivery Mechanical Ventilation Fraction of Inspired Oxygen 40 12/03/24 03:45 12/03/24 04:00 12/03/24 04:00 Temperature 37.7 C H Pulse Rate 90 90 Respiratory Rate 20 20 Blood Pressure 104/60 Pulse Oximetry 96 Oxygen Delivery Fraction of Inspired Oxygen 40 12/03/24 04:00 12/03/24 04:00 12/03/24 05:05 Temperature Pulse Rate 90 89 83 Respiratory Rate 20 Blood Pressure Pulse Oximetry 96 93 Oxygen Delivery Mechanical Ventilation Mechanical Ventilation Fraction of Inspired Oxygen 40 40 12/03/24 05:42 12/03/24 05:43 12/03/24 06:24 Temperature Pulse Rate 88 88 98 Respiratory Rate 20 20 20 Blood Pressure Pulse Oximetry Oxygen Delivery Fraction of Inspired Oxygen 12/03/24 06:24 12/03/24 06:26 12/03/24 06:26 Temperature 37.4 C Pulse Rate 91 92 88 Respiratory Rate 20 20 Blood Pressure 104/39 L Pulse Oximetry 92 Oxygen Delivery Fraction of Inspired Oxygen 12/03/24 07:46 12/03/24 07:47 Temperature Pulse Rate 81 80 Respiratory Rate 20 Blood Pressure Pulse Oximetry 93 Oxygen Delivery Mechanical Ventilation Fraction of Inspired Oxygen 40 Intake/Output Intake/Output: Intake & Output 11/30/24 12/01/24 12/02/24 12/03/24 23:59 23:59 23:59 23:59 Intake Total 2943.0 3796.9 2519.5 1161.2 Output Total 5400 6275 6700 1250 Balance -2457.0 -2478.1 -4180.5 -88.8 Meds/Results Medications: Active Medications Generic Name Dose Route Start Last Admin Trade Name Freq PRN Reason Stop Dose Admin Acetaminophen 650 mg 11/26/24 14:25 12/03/24 00:26 Acetaminophen 325 Mg Tablet PO 650 mg Q6H PRN Administration Mild Pain (1-3) or Fever Acetylcysteine 200 mg 11/28/24 08:55 12/03/24 07:46 Acetylcysteine 20% Inhal Soln 800 Mg/4 Ml Vial INHALATION 200 mg Q6HRT EDMUNDO Administration Apixaban 5 mg 11/26/24 21:00 12/02/24 21:09 Apixaban 5 Mg Tablet PO 5 mg Q12HR EDMUNDO Administration Dextrose 12.5 gm 11/26/24 16:15 Dextrose 50% 25 Gm/50 Ml Syringe IV PUSH PRN PRN Hypoglycemia Protocol Furosemide 80 mg 12/03/24 10:00 Furosemide Inj 100 Mg/10 Ml Vial IV PUSH 12/03/24 10:01 ONCE ONE Glucagon 1 mg 11/26/24 16:15 Glucagon For Inj 1 Mg Vial IM PRN PRN Hypoglycemia Protocol Glucose 15 gm 11/26/24 16:15 Glucose Oral Gel 15 Gm Of Glucse In 37.5 Gm Tube PO PRN PRN Hypoglycemia Protocol Dextrose 1,000 mls @ 100 mls/hr 11/26/24 16:15 Dextrose 5% 1,000 Ml IVPB PRN PRN Hypoglycemia Protocol Fentanyl Citrate 2,500 mcg in 250 mls @ 10 mls/hr 11/28/24 06:55 12/03/24 06:24 Fentanyl 2,500 Mcg/Ns 250 Ml IV CONT 100 mcg/hr .Q25H EDMUNDO 10 mls/hr Protocol Titration 100 MCG/HR Midazolam HCl 100 mg in 100 mls @ 1 mls/hr 11/28/24 06:55 12/03/24 06:24 Versed 100 Mg/Ns 100 Ml IV CONT 1 mg/hr .Q72H EDMUNDO 1 mls/hr Protocol Titration 1 MG/HR Cefepime HCl 2 gm/ Sodium 50 mls @ 100 mls/hr 11/28/24 14:00 12/03/24 06:35 Chloride IVPB Infused Q8HR EDMUNDO Infusion Insulin Aspart 3 - 6 units 11/28/24 06:50 12/03/24 06:39 Insulin Aspart (*Bkc) 100 Units/Ml SUB-Q Not Given Q6HR [facility] Protocol Insulin Glargine 25 units 12/01/24 09:00 12/02/24 09:31 Insulin Glargine (*Bkc) 100 Units/Ml SUB-Q 25 units QAM EDMUNDO Administration Ipratropium Basile 0.5 mg 11/29/24 08:00 12/03/24 07:45 Ipratropium Br 0.02% Inh Soln 0.5 Mg/2.5 Ml Vial INHALATION 0.5 mg Q6HRT EDMUNDO Administration Levalbuterol HCl 1.25 mg 11/29/24 20:00 12/03/24 07:46 Levalbuterol Neb 1.25 Mg/3 Ml INHALATION 1.25 mg Q6HRT EDMUNDO Administration Multi-Ingred Cream/Lotion/Oil/Oint 1 applic 11/28/24 09:00 12/02/24 21:09 Mineral Oil/White Petrolatum Ointment EACH EYE 1 applic Q12HR EDMUNDO Administration Pantoprazole Sodium 40 mg 11/29/24 09:00 12/02/24 09:26 Pantoprazole Sodium Iv 40 Mg Vial IV PUSH 40 mg QAM EDMUNDO Administration Potassium Chloride 40 meq 12/03/24 07:20 Potassium Chloride 20 Meq Packet (For Liquid) FEED TUBE 12/03/24 11:21 Q4H EDMUNDO Sertraline HCl 50 mg 11/27/24 09:00 11/28/24 12:06 Sertraline Hcl 50 Mg Tablet PO 50 mg On Hold: 11/29/24 08:16 DAILY EDMUNDO Administration Sodium Chloride 10 ml 11/28/24 14:00 12/03/24 05:31 Central Line Flush IV PUSH 10 ml Q8HR EDMUNDO Administration Sodium Chloride 20 ml 11/28/24 11:53 12/03/24 05:31 Central Line Flush IV PUSH 20 ml PRN PRN Administration after blood draws Labs Labs: Laboratory Results - last 24 hr 12/02/24 12/02/24 12/02/24 11:46 18:14 23:44 WBC RBC Hgb Hct MCV MCH MCHC RDW Plt Count MPV Immature Gran % (Auto) Neut % (Auto) Lymph % (Auto) [place] % (Auto) Eos % (Auto) Baso % (Auto) Lymph # (Auto) [place] # (Auto) Eos # (Auto) Baso # (Auto) Abs Immat Gran (auto) Absolute Neuts (auto) Absolute Nucleated RBC Band Neutrophils % Nucleated RBC % Platelet Estimate % Immature Plt Fraction Hypochromasia Anisocytosis Target Cells Schistocytes Puncture Site ABG pH ABG pCO2 ABG pO2 ABG PO2/FiO2 Ratio ABG HCO3 ABG O2 Saturation ABG O2 Content ABG Base Excess A-a Gradient Oxyhemoglobin Carboxyhemoglobin Methemoglobin Reduced Hemoglobin Total Hemoglobin O2 Delivery Device O2 Liters/Min Minute Volume Vent Rate Vent Mode FiO2 Tidal Volume PEEP Peak Inspir Pressure Pressure Support Sodium Potassium Chloride Carbon Dioxide Anion Gap BUN Creatinine Estim Creat Clear Calc Estimated GFR Glucose POC Capillary Glucose 187 H 172 H 178 H Calcium Total Bilirubin AST ALT Alkaline Phosphatase Total Protein Albumin 12/03/24 12/03/24 05:13 05:24 WBC 9.8 RBC 4.94 Hgb 13.4 L Hct 45.7 MCV 92.5 MCH 27.1 MCHC 29.3 L RDW 16.9 H Plt Count 128 L MPV 9.8 Immature Gran % (Auto) 0.4 Neut % (Auto) 74.6 H Lymph % (Auto) 16.5 L [place] % (Auto) 6.8 Eos % (Auto) 1.6 Baso % (Auto) 0.1 L Lymph # (Auto) 1.62 [place] # (Auto) 0.7 H Eos # (Auto) 0.2 Baso # (Auto) 0.0 Abs Immat Gran (auto) 0.04 H Absolute Neuts (auto) 7.3 H Absolute Nucleated RBC 0.000 Band Neutrophils % Not Reportable Nucleated RBC % 0.0 Platelet Estimate Slightly decreased % Immature Plt Fraction 3.1 Hypochromasia 1+ Anisocytosis 1+ Target Cells 1+ Schistocytes None seen Puncture Site Artline ABG pH 7.470 H ABG pCO2 56.2 H ABG pO2 68.1 L ABG PO2/FiO2 Ratio 1.70 ABG HCO3 40.0 H ABG O2 Saturation 94.2 L ABG O2 Content 18.8 ABG Base Excess 13.7 A-a Gradient 152.5 Oxyhemoglobin 92.4 Carboxyhemoglobin 1.7 Methemoglobin 0.1 Reduced Hemoglobin 5.8 H Total Hemoglobin 14.5 O2 Delivery Device Ventilator O2 Liters/Min Not Reportable Minute Volume Not Reportable Vent Rate 20 Vent Mode Cmv FiO2 40 Tidal Volume 500 PEEP 10 Peak Inspir Pressure Not Reportable Pressure Support Not Reportable Sodium 135 L Potassium 3.6 Chloride 92 L Carbon Dioxide > 40 H Anion Gap BUN 48 H Creatinine 0.72 Estim Creat Clear Calc 164 Estimated GFR > 60 Glucose 142 H POC Capillary Glucose Calcium 8.0 L Total Bilirubin 1.6 H AST 38 ALT 40 Alkaline Phosphatase 71 Total Protein 5.9 L Albumin 2.7 L Quality VTE Prophylaxis VTE prophylaxis: pharmacologic ordered
[2024-12-03] MEDS: APIXABAN 5 MG TABLET PO ×2 (10:18→21:36)
[2024-12-03] MEDS: INSULIN GLARGINE (*BKC) 100 UNITS/ML 25 UNITS SUB-Q (10:19)
[2024-12-03] MEDS: PANTOPRAZOLE SODIUM IV 40 MG VIAL IV PUSH (10:19)
[2024-12-03] MEDS: MINERAL OIL/WHITE PETROLATUM OINTMENT 1 APPLIC EACH EYE ×2 (10:20→21:37)
[2024-12-03] MEDS: FUROSEMIDE INJ 100 MG/10 ML VIAL 80 MG IV PUSH (10:21)
--- NOTE | 2024-12-03 11:31 | P.PNIM_ITS ---
Progress Note: A&P Assessment and Plan (1) Acute on chronic respiratory failure with hypoxia and hypercapnia: Code(s): J96.21 - Acute and chronic respiratory failure with hypoxia; J96.22 - Acute and chronic respiratory failure with hypercapnia Status: Acute Assessment and Plan: Acute on chronic respiratory failure secondary to multifactorial combination of COPD, obesity hypoventilation syndrome, left-sided pneumonia, pulmonary edema, atelectasis 11/26: Patient was admitted for increasing/worsening dyspnea 1 day prior to admission. Patient was in the intermediate Unit, evaluated by pulmonology, has been noncompliant with his AVAPS/BiPAP. 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 Also was possibly delirious as he pulled out his IV lines and BiPAP mask. -was on propofol, dropped his blood pressures in the 40s systolic, propofol infusion were discontinued currently sedated with Versed and fentanyl Chest x-ray shows a consolidation versus atelectasis versus combination of 2 on the left side. Patient is a too big for CT scanner hence unable to evaluate 11/29 bronchoscopy was done. Minimal amount of secretions were seen. Chest x-ray reviewed this morning and shows improvement on the left side Currently on CMV mode of ventilation, 40% FiO2 and peep of 10. Wean oxygen. Continue to elevate left side with pillows Continue bronchodilators, Pulmozyme and Mucomyst nebs Continue chest PT has been ordered Weaned off Solu-Medrol Sputum culture is growing Pseudomonas. Nasal MRSA screen was positive. Patient was on vancomycin earlier it was discontinued yesterday. On a antibiotics for pneumonia- cefepime Lasix IV will be continued Not ready for weaning at this point but getting close. Will try to get PEEP down to 8 before doing a weaning trial continue care per speech professor (2) COPD exacerbation: Code(s): J44.1 - Chronic obstructive pulmonary disease with (acute) exacerbation Status: Acute Assessment and Plan: See above (3) Pneumonia: Code(s): J18.9 - Pneumonia, unspecified organism Status: Acute Assessment and Plan: See above (4) Hypotension: Code(s): I95.9 - Hypotension, unspecified Status: Acute Assessment and Plan: Patient dropped his blood pressure is likely related to propofol infuse and positive-pressure ventilation -required phenylephrine push and Levophed infusion Now off (5) Atrial fibrillation with RVR: Code(s): I48.91 - Unspecified atrial fibrillation Status: Acute Assessment and Plan: Patient has a history of AFib with RVR, currently rate controlled but remains in atrial fibrillation -continue Eliquis (6) Type 2 diabetes mellitus: Qualifiers: Diabetes mellitus fdc insulin use: without termite renewal inspector use Diabetes mellitus complication status: without complication Qualified Code(s): E11.9 - Type 2 diabetes mellitus without complications Code(s): E11.9 - Type 2 diabetes mellitus without complications Status: Acute Assessment and Plan: Accu-Cheks and sliding scale insulin Increase Lantus dose (7) Essential hypertension: Code(s): I10 - Essential (primary) hypertension Status: Acute Assessment and Plan: Hold antihypertensive medications at this time (8) KATIE (obstructive sleep apnea): Code(s): G47.33 - Obstructive sleep apnea (adult) (pediatric) Status: Acute Assessment and Plan: Non compliant with his CPAP/AVAPS -currently intubated (9) Edema of abdominal wall: Code(s): R60.0 - Localized edema Status: Acute Assessment and Plan: Edema of the abdominal wall on the left side likely related to dependent edema as patient fevers to lay on that side Lasix will be continued (10) Electrolyte abnormality: Code(s): E87.8 - Other disorders of electrolyte and fluid balance, not elsewhere classified Status: Acute Assessment and Plan: Potassium replacement ordered Plan DVT prophylaxis: Apixaban Stress ulcer prophylaxis: Protonix Nutrition: Continue tube feeding at goal rate Code Status: Full code Subjective Date/time seen: 12/03/24 11:31 Interval history: Still intubated and sedated Review of Systems Review of Systems: All systems are reviewed and are negative unless stated otherwise in the HPI. ROS unobtainable: Yes unobtainable due to endotracheal tube, unobtainable due to medical condition and unobtainable due to mental status Exam Narrative: General: Significantly obese gentleman, currently intubated, sedated in no acute distress HEENT:? Pupils equal and reactive, sclera is injected, ETT in place Neck:? Thick and short neck Respiratory:? Decreased air entry bilaterally no wheezing. Breath sounds are improved on the left side but still less than as compared to right side Chest: Left breast is larger than the right, indurated, warm and erythematous compared to the right side Cardiac:? Distant heart sounds, irregularly irregular Abdomen:? Morbidly obese, indurated and form on the left side with pitting edema, right side is softer with less edema, according the os daughter patient prefers to lay on the left side, causing possible dependent edema and swelling Extremities:? Trace edema bilateral lower extremities, palpable pedal pulses Neuro:? Patient is intubated, sedated, does not open his eyes or follow simple commands for me but followed commands for the night nurse. He withdraws to pain. Skin:? Bruising noted on upper extremities, torso, chronic venous stasis changes on bilateral lower extremity Psych:? Unable to assess at this time Objective Data Vital Signs Vital Signs: Vital Signs - 24 hr 12/02/24 12:00 12/02/24 12:00 12/02/24 12:00 Temperature Pulse Rate 92 95 90 Respiratory Rate 20 20 20 Blood Pressure Pulse Oximetry 95 Oxygen Delivery Mechanical Ventilation Fraction of Inspired Oxygen 40 12/02/24 12:00 12/02/24 12:00 12/02/24 12:00 Temperature 99.5 F Pulse Rate 95 90 Respiratory Rate 20 Blood Pressure 101/61 Pulse Oximetry 94 Oxygen Delivery Fraction of Inspired Oxygen 40 12/02/24 13:25 12/02/24 13:25 12/02/24 13:40 Temperature Pulse Rate 92 92 95 Respiratory Rate 20 20 Blood Pressure Pulse Oximetry 95 Oxygen Delivery Mechanical Ventilation Fraction of Inspired Oxygen 40 12/02/24 14:00 12/02/24 14:00 12/02/24 14:00 Temperature Pulse Rate 96 96 96 Respiratory Rate 20 20 Blood Pressure Pulse Oximetry Oxygen Delivery Fraction of Inspired Oxygen 12/02/24 14:00 12/02/24 14:57 12/02/24 14:57 Temperature 99.7 F H Pulse Rate 96 95 95 Respiratory Rate 20 20 20 Blood Pressure 97/56 L Pulse Oximetry 92 Oxygen Delivery Fraction of Inspired Oxygen 12/02/24 16:00 12/02/24 16:00 12/02/24 16:00 Temperature Pulse Rate 95 95 Respiratory Rate 20 Blood Pressure Pulse Oximetry 94 Oxygen Delivery Mechanical Ventilation Fraction of Inspired Oxygen 40 40 12/02/24 16:00 12/02/24 16:00 12/02/24 16:00 Temperature 99.6 F Pulse Rate 88 95 95 Respiratory Rate 20 20 20 Blood Pressure 102/62 Pulse Oximetry 94 Oxygen Delivery Fraction of Inspired Oxygen 12/02/24 16:52 12/02/24 18:00 12/02/24 18:00 Temperature 99.8 F H Pulse Rate 94 94 89 Respiratory Rate 20 Blood Pressure 116/82 Pulse Oximetry 95 94 Oxygen Delivery Mechanical Ventilation Fraction of Inspired Oxygen 40 12/02/24 18:00 12/02/24 18:00 12/02/24 19:30 Temperature 100 F H Pulse Rate 86 88 85 Respiratory Rate 20 20 20 Blood Pressure 94/55 L Pulse Oximetry 95 Oxygen Delivery Fraction of Inspired Oxygen 12/02/24 19:43 12/02/24 20:00 12/02/24 20:00 Temperature 100.1 F H Pulse Rate 91 92 92 Respiratory Rate 20 20 20 Blood Pressure Pulse Oximetry Oxygen Delivery Fraction of Inspired Oxygen 12/02/24 20:00 12/02/24 20:00 12/02/24 20:03 Temperature Pulse Rate 88 88 Respiratory Rate 20 Blood Pressure Pulse Oximetry Oxygen Delivery Fraction of Inspired Oxygen 40 12/02/24 20:04 12/02/24 20:22 12/02/24 20:30 Temperature 100.1 F H Pulse Rate 91 94 92 Respiratory Rate 20 20 Blood Pressure 103/64 Pulse Oximetry 93 94 Oxygen Delivery Mechanical Ventilation Fraction of Inspired Oxygen 40 12/02/24 21:00 12/02/24 21:00 12/02/24 22:00 Temperature 100.1 F H Pulse Rate 91 86 Respiratory Rate 20 20 Blood Pressure 110/63 Pulse Oximetry 94 92 Oxygen Delivery Mechanical Ventilation Fraction of Inspired Oxygen 40 12/02/24 22:00 12/02/24 22:00 12/02/24 22:00 Temperature 100 F H Pulse Rate 86 86 86 Respiratory Rate 20 20 Blood Pressure 99/57 L Pulse Oximetry 90 Oxygen Delivery Fraction of Inspired Oxygen 12/02/24 23:00 12/02/24 23:01 12/02/24 23:52 Temperature 100.1 F H 100.3 F H Pulse Rate 96 93 87 Respiratory Rate 20 20 Blood Pressure 102/62 110/70 Pulse Oximetry 90 94 95 Oxygen Delivery Mechanical Ventilation Fraction of Inspired Oxygen 40 12/03/24 00:00 12/03/24 00:00 12/03/24 00:00 Temperature Pulse Rate 91 91 84 Respiratory Rate 20 20 Blood Pressure Pulse Oximetry Oxygen Delivery Fraction of Inspired Oxygen 12/03/24 00:00 12/03/24 00:00 12/03/24 00:26 Temperature 100.4 F H Pulse Rate 91 Respiratory Rate 20 Blood Pressure Pulse Oximetry 93 Oxygen Delivery Mechanical Ventilation Fraction of Inspired Oxygen 40 40 12/03/24 01:26 12/03/24 02:00 12/03/24 02:00 Temperature 100.6 F H 100.7 F H Pulse Rate 83 83 Respiratory Rate 20 Blood Pressure 102/60 Pulse Oximetry 94 Oxygen Delivery Fraction of Inspired Oxygen 12/03/24 02:00 12/03/24 02:00 12/03/24 03:00 Temperature 100.5 F H Pulse Rate 83 83 89 Respiratory Rate 20 20 20 Blood Pressure 110/65 Pulse Oximetry 91 Oxygen Delivery Fraction of Inspired Oxygen 12/03/24 03:05 12/03/24 03:06 12/03/24 03:15 Temperature Pulse Rate 89 85 91 Respiratory Rate 20 20 Blood Pressure Pulse Oximetry 94 Oxygen Delivery Mechanical Ventilation Fraction of Inspired Oxygen 40 12/03/24 03:45 12/03/24 03:45 12/03/24 04:00 Temperature Pulse Rate 90 90 Respiratory Rate 20 20 Blood Pressure Pulse Oximetry Oxygen Delivery Fraction of Inspired Oxygen 40 12/03/24 04:00 12/03/24 04:00 12/03/24 04:00 Temperature 99.9 F H Pulse Rate 90 90 89 Respiratory Rate 20 20 Blood Pressure 104/60 Pulse Oximetry 96 96 Oxygen Delivery Mechanical Ventilation Fraction of Inspired Oxygen 40 12/03/24 05:05 12/03/24 05:42 12/03/24 05:43 Temperature Pulse Rate 83 88 88 Respiratory Rate 20 20 Blood Pressure Pulse Oximetry 93 Oxygen Delivery Mechanical Ventilation Fraction of Inspired Oxygen 40 12/03/24 06:24 12/03/24 06:24 12/03/24 06:26 Temperature Pulse Rate 98 91 92 Respiratory Rate 20 20 Blood Pressure Pulse Oximetry Oxygen Delivery Fraction of Inspired Oxygen 12/03/24 06:26 12/03/24 07:46 12/03/24 07:47 Temperature 99.4 F Pulse Rate 88 81 80 Respiratory Rate 20 20 Blood Pressure 104/39 L Pulse Oximetry 92 93 Oxygen Delivery Mechanical Ventilation Fraction of Inspired Oxygen 40 12/03/24 08:00 12/03/24 08:00 12/03/24 08:00 Temperature 98.9 F Pulse Rate 81 81 81 Respiratory Rate 20 20 20 Blood Pressure 120/67 Pulse Oximetry 93 Oxygen Delivery Fraction of Inspired Oxygen 12/03/24 08:00 12/03/24 08:00 12/03/24 08:00 Temperature Pulse Rate 84 Respiratory Rate Blood Pressure Pulse Oximetry 93 Oxygen Delivery Mechanical Ventilation Fraction of Inspired Oxygen 40 40 12/03/24 10:00 12/03/24 10:00 12/03/24 10:00 Temperature 98.9 F Pulse Rate 88 88 88 Respiratory Rate 20 20 20 Blood Pressure 120/64 Pulse Oximetry 89 L Oxygen Delivery Fraction of Inspired Oxygen 12/03/24 10:00 12/03/24 11:17 Temperature Pulse Rate 88 80 Respiratory Rate Blood Pressure Pulse Oximetry 93 Oxygen Delivery Mechanical Ventilation Fraction of Inspired Oxygen 40 Intake/Output Intake/Output: Intake & Output 11/30/24 12/01/24 12/02/24 12/03/24 23:59 23:59 23:59 23:59 Intake Total 2943.0 3796.9 2519.5 1200.8 Output Total 5400 6275 6700 1250 Balance -2457.0 -2478.1 -4180.5 -49.2 Meds/Results Medications: Active Medications Generic Name Dose Route Start Last Admin Trade Name Freq PRN Reason Stop Dose Admin Acetaminophen 650 mg 11/26/24 14:25 12/03/24 00:26 Acetaminophen 325 Mg Tablet PO 650 mg Q6H PRN Administration Mild Pain (1-3) or Fever Acetylcysteine 200 mg 11/28/24 08:55 12/03/24 07:46 Acetylcysteine 20% Inhal Soln 800 Mg/4 Ml Vial INHALATION 200 mg Q6HRT EDMUNDO Administration Apixaban 5 mg 11/26/24 21:00 12/03/24 10:18 Apixaban 5 Mg Tablet PO 5 mg Q12HR EDMUNDO Administration Dextrose 12.5 gm 11/26/24 16:15 Dextrose 50% 25 Gm/50 Ml Syringe IV PUSH PRN PRN Hypoglycemia Protocol Glucagon 1 mg 11/26/24 16:15 Glucagon For Inj 1 Mg Vial IM PRN PRN Hypoglycemia Protocol Glucose 15 gm 11/26/24 16:15 Glucose Oral Gel 15 Gm Of Glucse In 37.5 Gm Tube PO PRN PRN Hypoglycemia Protocol Dextrose 1,000 mls @ 100 mls/hr 11/26/24 16:15 Dextrose 5% 1,000 Ml IVPB PRN PRN Hypoglycemia Protocol Fentanyl Citrate 2,500 mcg in 250 mls @ 10 mls/hr 11/28/24 06:55 12/03/24 10:00 Fentanyl 2,500 Mcg/Ns 250 Ml IV CONT 100 mcg/hr .Q25H EDMUNDO 10 mls/hr Protocol Titration 100 MCG/HR Midazolam HCl 100 mg in 100 mls @ 1 mls/hr 11/28/24 06:55 12/03/24 10:00 Versed 100 Mg/Ns 100 Ml IV CONT 1 mg/hr .Q72H EDMUNDO 1 mls/hr Protocol Titration 1 MG/HR Cefepime HCl 2 gm/ Sodium 50 mls @ 100 mls/hr 11/28/24 14:00 12/03/24 06:35 Chloride IVPB Infused Q8HR EDMUNDO Infusion Insulin Aspart 3 - 6 units 11/28/24 06:50 12/03/24 06:39 Insulin Aspart (*Bkc) 100 Units/Ml SUB-Q Not Given Q6HR EDMUNDO Protocol Insulin Glargine 25 units 12/01/24 09:00 12/03/24 10:19 Insulin Glargine (*Bkc) 100 Units/Ml SUB-Q 25 units QAM EDMUNDO Administration Ipratropium [place] 0.5 mg 11/29/24 08:00 12/03/24 07:45 Ipratropium Br 0.02% Inh Soln 0.5 Mg/2.5 Ml Vial INHALATION 0.5 mg Q6HRT EDMUNDO Administration Levalbuterol HCl 1.25 mg 11/29/24 20:00 12/03/24 07:46 Levalbuterol Neb 1.25 Mg/3 Ml INHALATION 1.25 mg Q6HRT EDMUNDO Administration Multi-Ingred Cream/Lotion/Oil/Oint 1 applic 11/28/24 09:00 12/03/24 10:20 Mineral Oil/White Petrolatum Ointment EACH EYE 1 applic Q12HR EDMUNDO Administration Pantoprazole Sodium 40 mg 11/29/24 09:00 12/03/24 10:19 Pantoprazole Sodium Iv 40 Mg Vial IV PUSH 40 mg QAM EDMUNDO Administration Sertraline HCl 50 mg 11/27/24 09:00 11/28/24 12:06 Sertraline Hcl 50 Mg Tablet PO 50 mg On Hold: 11/29/24 08:16 DAILY EDMUNDO Administration Sodium Chloride 10 ml 11/28/24 14:00 12/03/24 05:31 Central Line Flush IV PUSH 10 ml Q8HR EDMUNDO Administration Sodium Chloride 20 ml 11/28/24 11:53 12/03/24 05:31 Central Line Flush IV PUSH 20 ml PRN PRN Administration after blood draws Labs Labs: Laboratory Results - last 24 hr 12/02/24 12/02/24 12/02/24 11:46 18:14 23:44 WBC RBC Hgb Hct MCV MCH MCHC RDW Plt Count MPV Immature Gran % (Auto) Neut % (Auto) Lymph % (Auto) [place] % (Auto) Eos % (Auto) Baso % (Auto) Lymph # (Auto) [place] # (Auto) Eos # (Auto) Baso # (Auto) Abs Immat Gran (auto) Absolute Neuts (auto) Absolute Nucleated RBC Band Neutrophils % Nucleated RBC % Platelet Estimate % Immature Plt Fraction Hypochromasia Anisocytosis Target Cells Schistocytes Puncture Site ABG pH ABG pCO2 ABG pO2 ABG PO2/FiO2 Ratio ABG HCO3 ABG O2 Saturation ABG O2 Content ABG Base Excess A-a Gradient Oxyhemoglobin Carboxyhemoglobin Methemoglobin Reduced Hemoglobin Total Hemoglobin O2 Delivery Device O2 Liters/Min Minute Volume Vent Rate Vent Mode FiO2 Tidal Volume PEEP Peak Inspir Pressure Pressure Support Sodium Potassium Chloride Carbon Dioxide Anion Gap BUN Creatinine Estim Creat Clear Calc Estimated GFR Glucose POC Capillary Glucose 187 H 172 H 178 H Calcium Total Bilirubin AST ALT Alkaline Phosphatase Total Protein Albumin 12/03/24 12/03/24 05:13 05:24 WBC 9.8 RBC 4.94 Hgb 13.4 L Hct 45.7 MCV 92.5 MCH 27.1 MCHC 29.3 L RDW 16.9 H Plt Count 128 L MPV 9.8 Immature Gran % (Auto) 0.4 Neut % (Auto) 74.6 H Lymph % (Auto) 16.5 L [place] % (Auto) 6.8 Eos % (Auto) 1.6 Baso % (Auto) 0.1 L Lymph # (Auto) 1.62 [place] # (Auto) 0.7 H Eos # (Auto) 0.2 Baso # (Auto) 0.0 Abs Immat Gran (auto) 0.04 H Absolute Neuts (auto) 7.3 H Absolute Nucleated RBC 0.000 Band Neutrophils % Not Reportable Nucleated RBC % 0.0 Platelet Estimate Slightly decreased % Immature Plt Fraction 3.1 Hypochromasia 1+ Anisocytosis 1+ Target Cells 1+ Schistocytes None seen Puncture Site Artline ABG pH 7.470 H ABG pCO2 56.2 H ABG pO2 68.1 L ABG PO2/FiO2 Ratio 1.70 ABG HCO3 40.0 H ABG O2 Saturation 94.2 L ABG O2 Content 18.8 ABG Base Excess 13.7 A-a Gradient 152.5 Oxyhemoglobin 92.4 Carboxyhemoglobin 1.7 Methemoglobin 0.1 Reduced Hemoglobin 5.8 H Total Hemoglobin 14.5 O2 Delivery Device Ventilator O2 Liters/Min Not Reportable Minute Volume Not Reportable Vent Rate 20 Vent Mode Cmv FiO2 40 Tidal Volume 500 PEEP 10 Peak Inspir Pressure Not Reportable Pressure Support Not Reportable Sodium 135 L Potassium 3.6 Chloride 92 L Carbon Dioxide > 40 H Anion Gap BUN 48 H Creatinine 0.72 Estim Creat Clear Calc 164 Estimated GFR > 60 Glucose 142 H POC Capillary Glucose Calcium 8.0 L Total Bilirubin 1.6 H AST 38 ALT 40 Alkaline Phosphatase 71 Total Protein 5.9 L Albumin 2.7 L Quality VTE Prophylaxis VTE prophylaxis: pharmacologic ordered
[2024-12-03] MEDS: INSULIN ASPART (*BKC) 100 UNITS/ML SUB-Q (12:32)
[2024-12-03] MEDS: FENTANYL 2,500MCG/NS250ML(*CRX 2,500 MCG/250 ML BAG 10 MCG IV CONT (16:31)
[2024-12-04] VITALS (53 sets, daily range): BP systolic 108–148; BP diastolic 60–106; PULSE 75–120; RESP 20–30; TEMP 37.1–37.8; O2SAT 88–97
[2024-12-04] MEDS: IPRATROPIUM BR 0.02% INH SOLN 0.5 MG/2.5 ML VIAL INHALATION ×4 (02:03→20:24)
[2024-12-04] MEDS: ACETYLCYSTEINE 20% INHAL SOLN 800 MG/4 ML VIAL 200 MG INHALATION ×4 (02:04→20:23)
[2024-12-04] MEDS: CENTRAL LINE FLUSH 10 ML IV PUSH ×3 (02:57→21:35)
[2024-12-04 05:26] LABS: Hematocrit 46.7 % (42.0-52.0); Hemoglobin 13.7 g/dL (14.0-18.0); Immature Granulocyte Percent A 0.4 % (0-0.5); Lymphocytes Absolute Auto 1.17 K/mm3 (0.9-3.2); Mean Corpuscular HGB Conc 29.3 g/dl (32-36); Mean Corpuscular Hemoglobin 27.2 pg (26-34); Mean Corpuscular Volume 92.8 fl (80-100); Nucleated Red Blood Cells Absolute Auto 0.000 K/mm3 (0.0-0.012); Nucleated Red Blood Cells Perc 0.0 % (0.0-0.2); Platelet Count Result 130 k/mm3 (150-375); Red Blood Count 5.03 M/mm3 (4.6-6.20); White Blood Count 10.4 K/mm3 (4.5-10.0)
[2024-12-04] MEDS: CEFEPIME 2 GM in SODIUM CHLORIDE 0.9% IV 50 ML 100 ML IVPB ×3 (05:28→21:35)
[2024-12-04] MEDS: MIDAZOLAM 100MG/NS 100ML(*CRX) 100 MG/100 ML BAG IV CONT (05:31)
[2024-12-04 05:36] LABS: Alveolar/Arterial O2 Gradient 206.6 mmHg; Carboxyhemoglobin 1.8 % THb (0-2.0); Fractional Inspired Oxygen 50 %; HCO3 ABG 40.2 mEq/l (22.0-26.0); Methemoglobin ABG 0.0 %THb (0-1.5); Oxygen Content ABG 18.9 %vol (16.0-22.0); Oxygen Saturation ABG 95.5 % (95.0-100.0); PO2 ABG 79.0 mmHg (80.0-100.0); PO2 FiO2 Ratio Arterial Blood 1.58 %; Reduced Hemoglobin 4.4 %THb (0-5.0)
[2024-12-04 05:37] LABS: PCO2 ABG 63.0 mmHg (35.0-45.0); Site Drawn ARTLINE
[2024-12-04 05:39] LABS: Arterial Blood Gas Tidal Volume 450 ml; Arterial Blood Gas Ventilator rate 20 /MIN
[2024-12-04 06:21] LABS: Anisocytosis 1+; Hypochromasia 1+; Schistocytes None Seen
[2024-12-04 06:46] LABS: Alanine Aminotransferase 32 U/L (6-50); Albumin Level 2.9 g/dL (3.5-5.1); Alkaline Phosphatase 87 U/L (38-126); Aspartate Amino Transferase 34 U/L (17-59); Bilirubin,Total 1.6 mg/dL (0.2-1.3); Blood Urea Nitrogen 41 mg/dL (9-20); Calcium 8.1 mg/dL (8.4-10.2); Carbon Dioxide > 40 mmol/L (22-30); Chloride 90 mmol/L (98-107); Estimated CRCL calculation 191 ml/min; Estimated Glomerular Filt Rate > 60; Glucose 161 mg/dL (65-110); Potassium 4.1 mmol/L (3.4-5.0); Sodium 135 mmol/L (137-145); Total Protein 6.3 g/dL (6.3-8.2); Triglycerides 88 mg/dL (<150)
[2024-12-04] MEDS: MINERAL OIL/WHITE PETROLATUM OINTMENT 1 APPLIC EACH EYE ×2 (08:33→21:16)
[2024-12-04] MEDS: PANTOPRAZOLE SODIUM IV 40 MG VIAL IV PUSH (08:33)
[2024-12-04] MEDS: APIXABAN 5 MG TABLET PO ×2 (08:33→21:16)
[2024-12-04] MEDS: FUROSEMIDE INJ 100 MG/10 ML VIAL 80 MG IV PUSH (08:33)
[2024-12-04] MEDS: INSULIN GLARGINE (*BKC) 100 UNITS/ML 25 UNITS SUB-Q (08:49)
--- NOTE | 2024-12-04 10:21 | P.PNINT_ITS ---
Progress Note: A&P Assessment and Plan (1) Acute on chronic respiratory failure with hypoxia and hypercapnia: Code(s): J96.21 - Acute and chronic respiratory failure with hypoxia; J96.22 - Acute and chronic respiratory failure with hypercapnia Status: Acute Assessment and Plan: Acute on chronic respiratory failure secondary to multifactorial combination of COPD, obesity hypoventilation syndrome, left-sided pneumonia, pulmonary edema, atelectasis 11/26: Patient was admitted for increasing/worsening dyspnea 1 day prior to admission. Patient was in the intermediate Unit, evaluated by pulmonology, has been noncompliant with his AVAPS/BiPAP. 11/28: acute specialist was intubated due to cyanosis, hypo hypoxia, hypercapnia. Also was possibly delirious as he pulled out his IV lines and BiPAP mask. -was on propofol, dropped his blood pressures in the 40s systolic, propofol infusion were discontinued currently sedated with Versed and fentanyl Chest x-ray shows a consolidation versus atelectasis versus combination of 2 on the left side. Patient is a too big for CT scanner hence unable to evaluate 11/29 bronchoscopy was done. Minimal amount of secretions were seen. Chest x-ray reviewed this morning and shows improvement on the left side Currently on CMV mode of ventilation, 50% FiO2 and peep of 10. I tried to drop the FiO2 to 40% patient's saturation dropped to 80s. I had to increase the FiO2 back up to 50 per Continue to elevate left side with pillows Continue bronchodilators, Pulmozyme and Mucomyst nebs Continue chest PT has been ordered Weaned off Solu-Medrol Sputum culture is growing Pseudomonas. Nasal MRSA screen was positive. Patient was on vancomycin earlier it was discontinued yesterday. On a antibiotics for pneumonia- cefepime Lasix IV will be continued Not ready for weaning at this point but getting close will try to get down to 40% and 8 of PEEP before doing weaning trial. (2) COPD exacerbation: Code(s): J44.1 - Chronic obstructive pulmonary disease with (acute) exacerbation Status: Acute Assessment and Plan: See above (3) Pneumonia: Code(s): J18.9 - Pneumonia, unspecified organism Status: Acute Assessment and Plan: See above (4) Hypotension: Code(s): I95.9 - Hypotension, unspecified Status: Acute Assessment and Plan: Patient dropped his blood pressure is likely related to propofol infuse and positive-pressure ventilation -required phenylephrine push and Levophed infusion Now off (5) Atrial fibrillation with RVR: Code(s): I48.91 - Unspecified atrial fibrillation Status: Acute Assessment and Plan: Patient has a history of AFib with RVR, currently rate controlled but remains in atrial fibrillation -continue Eliquis (6) Type 2 diabetes mellitus: Qualifiers: Diabetes mellitus rodent exterminator insulin use: without rodent exterminator use Diabetes mellitus complication status: without complication Qualified Code(s): E11.9 - Type 2 diabetes mellitus without complications Code(s): E11.9 - Type 2 diabetes mellitus without complications Status: Acute Assessment and Plan: Accu-Cheks and sliding scale insulin Continue Lantus dose (7) Essential hypertension: Code(s): I10 - Essential (primary) hypertension Status: Acute Assessment and Plan: Hold antihypertensive medications at this time (8) KATIE (obstructive sleep apnea): Code(s): G47.33 - Obstructive sleep apnea (adult) (pediatric) Status: Acute Assessment and Plan: Non compliant with his CPAP/AVAPS -currently intubated (9) Edema of abdominal wall: Code(s): R60.0 - Localized edema Status: Acute Assessment and Plan: Edema of the abdominal wall on the left side likely related to dependent edema as patient fevers to lay on that side Lasix will be continued (10) Electrolyte abnormality: Code(s): E87.8 - Other disorders of electrolyte and fluid balance, not elsewhere classified Status: Acute Assessment and Plan: Potassium improved after placement Plan DVT prophylaxis: Apixaban Stress ulcer prophylaxis: Protonix Nutrition: Continue tube feeding at goal rate Code Status: Full code 12/01 Discussed and updated patient's daughter at bedside and answered all questions Critical Care Time Spent: 30 minutes Due to a high probability of clinically significant, life threatening deterioration, the patient required my highest level of preparedness to in [facility] emergently and I personally spent this critical care time directly and personally managing the patient. This critical care time included obtaining a history; examining the patient; pulse oximetry; ordering and review of studies; arranging urgent treatment with development of a management plan; evaluation of patient's response to treatment; frequent reassessment; and discussions with other providers. It was exclusive of separately billable procedures and treating other patients and teaching time. Please see Assessment and Plan section and the rest of the note for further information on patient assessment and treatment This dictation may have been done utilizing a voice recognition system. Attempts have been made to correct errors. However, there may be uncorrected grammatical, spelling, and recognitions errors present. Subjective Date/time seen: 12/04/24 Overnight events reviewed. Afebrile Continues to be on mechanical ventilation 10 PEEP and 50% FiO2 Tolerating tube feeds at goal Good urine output in response to diuretics Continues to be sedated with Versed and fentanyl Other Vitals acceptable Interval history: 11/28 intubation 11/29 bronchoscopy Review of Systems Review of Systems: ROS unobtainable: Yes unobtainable due to endotracheal tube, unobtainable due to medical condition and unobtainable due to mental status Exam Narrative: General: Significantly obese gentleman, currently intubated, sedated in no acute distress HEENT:? Pupils equal and reactive, sclera is injected, ETT in place Neck:? Thick and short neck Respiratory:? Decreased air entry bilaterally no wheezing. Breath sounds are improved on the left side but still less than as compared to right side Chest: Left breast is larger than the right, indurated, warm and erythematous compared to the right side Cardiac:? Distant heart sounds, irregularly irregular Abdomen:? Morbidly obese, indurated and form on the left side with pitting edema, right side is softer with less edema, according the os daughter patient prefers to lay on the left side, causing possible dependent edema and swelling Extremities:? edema bilateral lower extremities, palpable pedal pulses Neuro:? Patient is intubated, sedated, does not open his eyes or follow simple commands for me but followed commands for the night nurse. He withdraws to pain. Skin:? Bruising noted on upper extremities, torso, chronic venous stasis changes on bilateral lower extremity Psych:? Unable to assess at this time Objective Data Vital Signs Vital Signs: Vital Signs - 24 hr 12/03/24 11:17 12/03/24 12:00 12/03/24 12:00 Temperature Pulse Rate 80 86 88 Respiratory Rate 20 20 Blood Pressure Pulse Oximetry 93 Oxygen Delivery Mechanical Ventilation Fraction of Inspired Oxygen 40 12/03/24 12:00 12/03/24 12:00 12/03/24 12:00 Temperature 37.1 C Pulse Rate 94 Respiratory Rate 20 Blood Pressure 131/73 Pulse Oximetry 92 92 Oxygen Delivery Mechanical Ventilation Fraction of Inspired Oxygen 40 40 12/03/24 12:00 12/03/24 12:00 12/03/24 12:01 Temperature 36.9 C 37.0 C Pulse Rate 96 95 93 Respiratory Rate 20 20 Blood Pressure 158/89 H Pulse Oximetry 93 91 Oxygen Delivery Fraction of Inspired Oxygen 12/03/24 13:18 12/03/24 13:30 12/03/24 13:45 Temperature 36.9 C 37.0 C 37.0 C Pulse Rate 94 89 94 Respiratory Rate 20 20 20 Blood Pressure Pulse Oximetry 93 90 96 Oxygen Delivery Fraction of Inspired Oxygen 12/03/24 13:50 12/03/24 13:51 12/03/24 13:55 Temperature Pulse Rate 89 90 88 Respiratory Rate 20 20 Blood Pressure Pulse Oximetry 90 Oxygen Delivery Mechanical Ventilation Fraction of Inspired Oxygen 40 12/03/24 14:00 12/03/24 14:00 12/03/24 14:00 Temperature 37.1 C Pulse Rate 89 91 83 Respiratory Rate 20 20 Blood Pressure 105/62 Pulse Oximetry 91 Oxygen Delivery Fraction of Inspired Oxygen 12/03/24 14:00 12/03/24 14:09 12/03/24 14:15 Temperature 37.1 C 37.1 C Pulse Rate 83 89 93 Respiratory Rate 20 20 20 Blood Pressure Pulse Oximetry 91 90 Oxygen Delivery Fraction of Inspired Oxygen 12/03/24 14:30 12/03/24 14:45 12/03/24 15:00 Temperature 37.0 C 37.0 C 36.9 C Pulse Rate 93 93 94 Respiratory Rate 20 20 20 Blood Pressure 151/79 H Pulse Oximetry 91 91 91 Oxygen Delivery Fraction of Inspired Oxygen 12/03/24 15:01 12/03/24 15:15 12/03/24 15:30 Temperature 36.9 C 36.9 C 36.9 C Pulse Rate 95 89 88 Respiratory Rate 20 20 20 Blood Pressure Pulse Oximetry 92 91 91 Oxygen Delivery Fraction of Inspired Oxygen 12/03/24 15:47 12/03/24 15:50 12/03/24 15:57 Temperature 36.9 C Pulse Rate 90 90 94 Respiratory Rate 19 20 Blood Pressure Pulse Oximetry 90 93 Oxygen Delivery Mechanical Ventilation Fraction of Inspired Oxygen 40 12/03/24 16:00 12/03/24 16:00 12/03/24 16:00 Temperature 36.9 C Pulse Rate 88 88 Respiratory Rate 20 20 Blood Pressure 112/62 Pulse Oximetry 91 Oxygen Delivery Fraction of Inspired Oxygen 40 12/03/24 16:00 12/03/24 16:00 12/03/24 16:31 Temperature Pulse Rate 89 97 94 Respiratory Rate 20 20 Blood Pressure Pulse Oximetry 91 Oxygen Delivery Mechanical Ventilation Fraction of Inspired Oxygen 40 12/03/24 18:00 12/03/24 18:00 12/03/24 18:00 Temperature 37.0 C Pulse Rate 86 86 86 Respiratory Rate 20 20 20 Blood Pressure 113/63 Pulse Oximetry 91 Oxygen Delivery Fraction of Inspired Oxygen 12/03/24 18:00 12/03/24 19:07 12/03/24 19:15 Temperature 37.1 C 37.1 C Pulse Rate 89 84 77 Respiratory Rate 20 20 Blood Pressure Pulse Oximetry 92 92 Oxygen Delivery Fraction of Inspired Oxygen 12/03/24 19:30 12/03/24 19:34 12/03/24 19:44 Temperature 37.1 C Pulse Rate 87 82 85 Respiratory Rate 20 20 20 Blood Pressure Pulse Oximetry 92 Oxygen Delivery Fraction of Inspired Oxygen 12/03/24 19:45 12/03/24 19:45 12/03/24 20:00 Temperature 37.1 C Pulse Rate 85 83 87 Respiratory Rate 20 20 Blood Pressure Pulse Oximetry 93 93 Oxygen Delivery Mechanical Ventilation Fraction of Inspired Oxygen 40 12/03/24 20:00 12/03/24 20:01 12/03/24 20:03 Temperature 37.1 C 37.1 C Pulse Rate 77 88 88 Respiratory Rate 20 20 20 Blood Pressure 139/93 H Pulse Oximetry 91 93 Oxygen Delivery Fraction of Inspired Oxygen 12/03/24 20:15 12/03/24 20:30 12/03/24 20:45 Temperature 37.1 C 37.1 C 37.1 C Pulse Rate 90 84 81 Respiratory Rate 20 20 20 Blood Pressure Pulse Oximetry 92 88 L 89 L Oxygen Delivery Fraction of Inspired Oxygen 12/03/24 21:00 12/03/24 21:01 12/03/24 21:15 Temperature 37.1 C 37.1 C 37.1 C Pulse Rate 90 85 82 Respiratory Rate 20 20 20 Blood Pressure 148/78 H Pulse Oximetry 91 95 87 L Oxygen Delivery Fraction of Inspired Oxygen 12/03/24 21:30 12/03/24 21:30 12/03/24 21:30 Temperature Pulse Rate 92 Respiratory Rate Blood Pressure Pulse Oximetry 92 Oxygen Delivery Mechanical Ventilation Fraction of Inspired Oxygen 40 40 12/03/24 21:30 12/03/24 21:45 12/03/24 22:00 Temperature 37.1 C 37.1 C 37.0 C Pulse Rate 91 95 89 Respiratory Rate 26 H 20 18 Blood Pressure 135/105 H Pulse Oximetry 98 89 L 87 L Oxygen Delivery Fraction of Inspired Oxygen 12/03/24 22:00 12/03/24 22:00 12/03/24 22:00 Temperature Pulse Rate 92 92 85 Respiratory Rate 20 20 Blood Pressure Pulse Oximetry Oxygen Delivery Fraction of Inspired Oxygen 12/03/24 22:06 12/03/24 22:15 12/03/24 22:30 Temperature 37.1 C 37.1 C 37.0 C Pulse Rate 93 88 91 Respiratory Rate 20 20 20 Blood Pressure Pulse Oximetry 88 L 89 L 88 L Oxygen Delivery Fraction of Inspired Oxygen 12/03/24 22:45 12/03/24 23:00 12/03/24 23:45 Temperature 37.0 C 37.0 C Pulse Rate 84 87 88 Respiratory Rate 20 20 Blood Pressure Pulse Oximetry 88 L 90 93 Oxygen Delivery Mechanical Ventilation Fraction of Inspired Oxygen 40 12/04/24 00:00 12/04/24 00:00 12/04/24 00:00 Temperature Pulse Rate 86 86 83 Respiratory Rate 20 20 Blood Pressure Pulse Oximetry Oxygen Delivery Fraction of Inspired Oxygen 12/04/24 00:00 12/04/24 00:14 12/04/24 00:15 Temperature 37.1 C 37.1 C 37.1 C Pulse Rate 86 87 82 Respiratory Rate 20 20 20 Blood Pressure 112/65 Pulse Oximetry 94 93 93 Oxygen Delivery Fraction of Inspired Oxygen 12/04/24 00:30 12/04/24 00:30 12/04/24 00:30 Temperature 37.1 C Pulse Rate 80 Respiratory Rate 20 Blood Pressure Pulse Oximetry 92 94 Oxygen Delivery Mechanical Ventilation Fraction of Inspired Oxygen 40 40 12/04/24 00:46 12/04/24 01:01 12/04/24 01:15 Temperature 37.1 C 37.1 C 37.1 C Pulse Rate 88 84 84 Respiratory Rate 20 20 20 Blood Pressure Pulse Oximetry 94 94 92 Oxygen Delivery Fraction of Inspired Oxygen 12/04/24 01:30 12/04/24 01:46 12/04/24 02:00 Temperature 37.1 C 37.1 C Pulse Rate 82 76 79 Respiratory Rate 20 20 20 Blood Pressure Pulse Oximetry 92 93 Oxygen Delivery Fraction of Inspired Oxygen 12/04/24 02:00 12/04/24 02:00 12/04/24 02:00 Temperature 37.2 C Pulse Rate 79 79 85 Respiratory Rate 20 20 Blood Pressure 122/68 Pulse Oximetry 91 Oxygen Delivery Fraction of Inspired Oxygen 12/04/24 02:00 12/04/24 02:01 12/04/24 02:04 Temperature 37.2 C 37.2 C Pulse Rate 80 75 82 Respiratory Rate 20 20 20 Blood Pressure 137/76 Pulse Oximetry 94 94 Oxygen Delivery Fraction of Inspired Oxygen 12/04/24 02:10 12/04/24 02:15 12/04/24 02:30 Temperature 37.2 C 37.2 C Pulse Rate 83 90 83 Respiratory Rate 20 20 Blood Pressure Pulse Oximetry 93 91 89 L Oxygen Delivery Mechanical Ventilation Fraction of Inspired Oxygen 40 12/04/24 03:00 12/04/24 03:15 12/04/24 03:30 Temperature 37.2 C 37.3 C 37.3 C Pulse Rate 91 92 93 Respiratory Rate 20 20 20 Blood Pressure 142/106 H Pulse Oximetry 91 88 L 93 Oxygen Delivery Fraction of Inspired Oxygen 12/04/24 03:34 12/04/24 03:45 12/04/24 04:00 Temperature 37.3 C 37.3 C Pulse Rate 92 90 Respiratory Rate 20 20 Blood Pressure 141/84 H Pulse Oximetry 92 92 93 Oxygen Delivery Mechanical Ventilation Fraction of Inspired Oxygen 50 12/04/24 04:00 12/04/24 04:00 12/04/24 04:00 Temperature Pulse Rate 98 95 95 Respiratory Rate 20 20 Blood Pressure Pulse Oximetry Oxygen Delivery Fraction of Inspired Oxygen 12/04/24 04:00 12/04/24 04:00 12/04/24 04:00 Temperature Pulse Rate Respiratory Rate Blood Pressure Pulse Oximetry 92 Oxygen Delivery Mechanical Ventilation Mechanical Ventilation Fraction of Inspired Oxygen 50 50 50 12/04/24 04:15 12/04/24 04:30 12/04/24 04:45 Temperature 37.2 C 37.2 C 37.2 C Pulse Rate 94 91 84 Respiratory Rate 23 H 20 20 Blood Pressure Pulse Oximetry 92 92 94 Oxygen Delivery Fraction of Inspired Oxygen 12/04/24 05:00 12/04/24 05:18 12/04/24 05:30 Temperature 37.2 C 37.2 C 37.2 C Pulse Rate 87 91 95 Respiratory Rate 20 20 20 Blood Pressure 141/95 H Pulse Oximetry 97 95 94 Oxygen Delivery Fraction of Inspired Oxygen 12/04/24 05:31 12/04/24 05:31 12/04/24 05:45 Temperature 37.2 C Pulse Rate 89 89 92 Respiratory Rate 20 20 20 Blood Pressure Pulse Oximetry 94 Oxygen Delivery Fraction of Inspired Oxygen 12/04/24 06:00 12/04/24 06:00 12/04/24 06:00 Temperature Pulse Rate 84 84 84 Respiratory Rate 20 20 Blood Pressure Pulse Oximetry Oxygen Delivery Fraction of Inspired Oxygen 12/04/24 06:00 12/04/24 06:01 12/04/24 07:27 Temperature Pulse Rate 91 86 Respiratory Rate 20 Blood Pressure 118/75 Pulse Oximetry 93 Oxygen Delivery Mechanical Ventilation Fraction of Inspired Oxygen 50 12/04/24 07:27 12/04/24 08:00 12/04/24 08:00 Temperature 37.2 C Pulse Rate 86 96 Respiratory Rate 20 Blood Pressure 127/67 Pulse Oximetry 96 93 Oxygen Delivery Mechanical Ventilation Fraction of Inspired Oxygen 50 50 12/04/24 08:00 12/04/24 08:00 12/04/24 08:00 Temperature Pulse Rate 92 86 Respiratory Rate 20 20 Blood Pressure Pulse Oximetry 93 Oxygen Delivery Mechanical Ventilation Fraction of Inspired Oxygen 50 12/04/24 10:00 Temperature 37.2 C Pulse Rate 95 Respiratory Rate 20 Blood Pressure 129/66 Pulse Oximetry 94 Oxygen Delivery Fraction of Inspired Oxygen Intake/Output Intake/Output: Intake & Output 12/01/24 12/02/24 12/03/24 12/04/24 23:59 23:59 23:59 23:59 Intake Total 3796.9 2519.5 2779.1 1173 Output Total 6275 6700 6600 1800 Balance -2478.1 -4180.5 -3820.9 -627 Meds/Results Medications: Active Medications Generic Name Dose Route Start Last Admin Trade Name Freq PRN Reason Stop Dose Admin Acetaminophen 650 mg 11/26/24 14:25 12/03/24 00:26 Acetaminophen 325 Mg Tablet PO 650 mg Q6H PRN Administration Mild Pain (1-3) or Fever Acetylcysteine 200 mg 11/28/24 08:55 12/04/24 07:27 Acetylcysteine 20% Inhal Soln 800 Mg/4 Ml Vial INHALATION 200 mg Q6HRT EDMUNDO Administration Apixaban 5 mg 11/26/24 21:00 12/04/24 08:33 Apixaban 5 Mg Tablet PO 5 mg Q12HR EDMUNDO Administration Dextrose 12.5 gm 11/26/24 16:15 Dextrose 50% 25 Gm/50 Ml Syringe IV PUSH PRN PRN Hypoglycemia Protocol Glucagon 1 mg 11/26/24 16:15 Glucagon For Inj 1 Mg Vial IM PRN PRN Hypoglycemia Protocol Glucose 15 gm 11/26/24 16:15 Glucose Oral Gel 15 Gm Of Glucse In 37.5 Gm Tube PO PRN PRN Hypoglycemia Protocol Dextrose 1,000 mls @ 100 mls/hr 11/26/24 16:15 Dextrose 5% 1,000 Ml IVPB PRN PRN Hypoglycemia Protocol Fentanyl Citrate 2,500 mcg in 250 mls @ 10 mls/hr 11/28/24 06:55 12/04/24 08:00 Fentanyl 2,500 Mcg/Ns 250 Ml IV CONT 100 mcg/hr .Q25H EDMUNDO 10 mls/hr Protocol Titration 100 MCG/HR Midazolam HCl 100 mg in 100 mls @ 2 mls/hr 11/28/24 06:55 12/04/24 08:00 Versed 100 Mg/Ns 100 Ml IV CONT 2 mg/hr .Q50H EDMUNDO 2 mls/hr Protocol Titration 2 MG/HR Cefepime HCl 2 gm/ Sodium 50 mls @ 100 mls/hr 11/28/24 14:00 12/04/24 06:46 Chloride IVPB Infused Q8HR EDMUNDO Infusion Insulin Aspart 3 - 6 units 11/28/24 06:50 12/04/24 06:45 Insulin Aspart (*Bkc) 100 Units/Ml SUB-Q Not Given Q6HR [facility] Protocol Insulin Glargine 25 units 12/01/24 09:00 12/04/24 08:49 Insulin Glargine (*Bkc) 100 Units/Ml SUB-Q 25 units QAM EDMUNDO Administration Ipratropium [place] 0.5 mg 11/29/24 08:00 12/04/24 07:27 Ipratropium Br 0.02% Inh Soln 0.5 Mg/2.5 Ml Vial INHALATION 0.5 mg Q6HRT EDMUNDO Administration Levalbuterol HCl 1.25 mg 11/29/24 20:00 12/04/24 07:27 Levalbuterol Neb 1.25 Mg/3 Ml INHALATION 1.25 mg Q6HRT EDMUNDO Administration Multi-Ingred Cream/Lotion/Oil/Oint 1 applic 11/28/24 09:00 12/04/24 08:33 Mineral Oil/White Petrolatum Ointment EACH EYE 1 applic Q12HR EDMUNDO Administration Pantoprazole Sodium 40 mg 11/29/24 09:00 12/04/24 08:33 Pantoprazole Sodium Iv 40 Mg Vial IV PUSH 40 mg QAM EDMUNDO Administration Sertraline HCl 50 mg 11/27/24 09:00 11/28/24 12:06 Sertraline Hcl 50 Mg Tablet PO 50 mg On Hold: 11/29/24 08:16 DAILY EDMUNDO Administration Sodium Chloride 10 ml 11/28/24 14:00 12/04/24 02:57 Central Line Flush IV PUSH 10 ml Q8HR EDMUNDO Administration Sodium Chloride 20 ml 11/28/24 11:53 12/03/24 05:31 Central Line Flush IV PUSH 20 ml PRN PRN Administration after blood draws Radiology Results: ITS Impressions Chest X-Ray 12/03/24 13:06 IMPRESSION: 1. Persistent complete collapse left lower lobe, likely aspiration or mucous plug. Bronchoscopy likely of value. 2. Worsening interstitial pulmonary edema and/or airspace disease right lung. Labs Labs: Laboratory Results - last 24 hr 12/03/24 12/03/24 12/04/24 12:20 17:48 00:03 WBC RBC Hgb Hct MCV MCH MCHC RDW Plt Count MPV Immature Gran % (Auto) Neut % (Auto) Lymph % (Auto) [place] % (Auto) Eos % (Auto) Baso % (Auto) Lymph # (Auto) [place] # (Auto) Eos # (Auto) Baso # (Auto) Abs Immat Gran (auto) Absolute Neuts (auto) Absolute Nucleated RBC Band Neutrophils % Nucleated RBC % Platelet Estimate Hypochromasia Anisocytosis Schistocytes Puncture Site ABG pH ABG pCO2 ABG pO2 ABG PO2/FiO2 Ratio ABG HCO3 ABG O2 Saturation ABG O2 Content ABG Base Excess A-a Gradient Oxyhemoglobin Carboxyhemoglobin Methemoglobin Reduced Hemoglobin Total Hemoglobin O2 Delivery Device O2 Liters/Min Minute Volume Vent Rate Vent Mode FiO2 Tidal Volume PEEP Peak Inspir Pressure Pressure Support Sodium Potassium Chloride Carbon Dioxide Anion Gap BUN Creatinine Estim Creat Clear Calc Estimated GFR Glucose POC Capillary Glucose 207 H 195 H 169 H Calcium Total Bilirubin AST ALT Alkaline Phosphatase Total Protein Albumin Triglycerides 12/04/24 12/04/24 12/04/24 00:50 05:12 06:18 WBC 10.4 H RBC 5.03 Hgb 13.7 L Hct 46.7 MCV 92.8 MCH 27.2 MCHC 29.3 L RDW 17.1 H Plt Count 130 L MPV 10.6 H Immature Gran % (Auto) 0.4 Neut % (Auto) 78.5 H Lymph % (Auto) 11.2 L [place] % (Auto) 7.7 Eos % (Auto) 2.0 Baso % (Auto) 0.2 Lymph # (Auto) 1.17 [place] # (Auto) 0.8 H Eos # (Auto) 0.2 Baso # (Auto) 0.0 Abs Immat Gran (auto) 0.04 H Absolute Neuts (auto) 8.2 H Absolute Nucleated RBC 0.000 Band Neutrophils % Not Reportable Nucleated RBC % 0.0 Platelet Estimate Slightly decreased Hypochromasia 1+ Anisocytosis 1+ Schistocytes None seen Puncture Site Artline ABG pH 7.423 ABG pCO2 63.0 H* ABG pO2 79.0 L ABG PO2/FiO2 Ratio 1.58 ABG HCO3 40.2 H ABG O2 Saturation 95.5 ABG O2 Content 18.9 ABG Base Excess 12.9 A-a Gradient 206.6 Oxyhemoglobin 93.8 Carboxyhemoglobin 1.8 Methemoglobin 0.0 Reduced Hemoglobin 4.4 Total Hemoglobin 14.3 O2 Delivery Device Ventilator O2 Liters/Min Not Reportable Minute Volume Not Reportable Vent Rate 20 Vent Mode Cmv FiO2 50 Tidal Volume 450 PEEP 10 Peak Inspir Pressure Not Reportable Pressure Support Not Reportable Sodium 135 L Potassium 4.1 Chloride 90 L Carbon Dioxide > 40 H Anion Gap BUN 41 H Creatinine 0.58 L Estim Creat Clear Calc 191 Estimated GFR > 60 Glucose 161 H POC Capillary Glucose 178 H 167 H Calcium 8.1 L Total Bilirubin 1.6 H AST 34 ALT 32 Alkaline Phosphatase 87 Total Protein 6.3 Albumin 2.9 L Triglycerides 88 Quality VTE Prophylaxis VTE prophylaxis: pharmacologic ordered
[2024-12-04] MEDS: FENTANYL 2,500MCG/NS250ML(*CRX 2,500 MCG/250 ML BAG 10 MCG IV CONT (15:57)
[2024-12-04] MEDS: ACETAMINOPHEN 325 MG TABLET 650 MG PO (23:50)
[2024-12-05] VITALS (42 sets, daily range): BP systolic 99–158; BP diastolic 56–91; PULSE 82–156; RESP 20–32; TEMP 37.4–37.9; O2SAT 89–97
[2024-12-05] MEDS: ACETYLCYSTEINE 20% INHAL SOLN 800 MG/4 ML VIAL 200 MG INHALATION ×4 (02:44→20:11)
[2024-12-05] MEDS: IPRATROPIUM BR 0.02% INH SOLN 0.5 MG/2.5 ML VIAL INHALATION ×4 (02:45→20:10)
[2024-12-05 04:48] LABS: Alveolar/Arterial O2 Gradient 235.4 mmHg; Carboxyhemoglobin 1.6 % THb (0-2.0); Fractional Inspired Oxygen 50 %; HCO3 ABG 38.1 mEq/l (22.0-26.0); Methemoglobin ABG 0.0 %THb (0-1.5); Oxygen Content ABG 17.5 %vol (16.0-22.0); Oxygen Saturation ABG 90.1 % (95.0-100.0); PCO2 ABG 57.0 mmHg (35.0-45.0); PO2 ABG 57.0 mmHg (80.0-100.0); PO2 FiO2 Ratio Arterial Blood 1.14 %; Reduced Hemoglobin 10.7 %THb (0-5.0)
[2024-12-05 05:01] LABS: Site Drawn ARTLINE
[2024-12-05 05:02] LABS: Arterial Blood Gas Tidal Volume 450 ml; Arterial Blood Gas Ventilator rate 20 /MIN
[2024-12-05 06:19] LABS: Hematocrit 45.4 % (42.0-52.0); Hemoglobin 13.4 g/dL (14.0-18.0); Immature Granulocyte Percent A 0.4 % (0-0.5); Lymphocytes Absolute Auto 1.14 K/mm3 (0.9-3.2); Mean Corpuscular HGB Conc 29.5 g/dl (32-36); Mean Corpuscular Hemoglobin 27.2 pg (26-34); Mean Corpuscular Volume 92.3 fl (80-100); Nucleated Red Blood Cells Absolute Auto 0.000 K/mm3 (0.0-0.012); Nucleated Red Blood Cells Perc 0.0 % (0.0-0.2); Platelet Count Result 156 k/mm3 (150-375); Red Blood Count 4.92 M/mm3 (4.6-6.20); White Blood Count 11.6 K/mm3 (4.5-10.0)
[2024-12-05] MEDS: CEFEPIME 2 GM in SODIUM CHLORIDE 0.9% IV 50 ML 100 ML IVPB (06:57)
[2024-12-05 07:10] LABS: Alanine Aminotransferase 25 U/L (6-50); Albumin Level 3.1 g/dL (3.5-5.1); Alkaline Phosphatase 106 U/L (38-126); Aspartate Amino Transferase 30 U/L (17-59); Bilirubin,Total 1.6 mg/dL (0.2-1.3); Blood Urea Nitrogen 37 mg/dL (9-20); Calcium 8.2 mg/dL (8.4-10.2); Chloride 91 mmol/L (98-107); Estimated CRCL calculation 183 ml/min; Estimated Glomerular Filt Rate > 60; Glucose 171 mg/dL (65-110); Magnesium 1.8 mg/dL (1.6-2.3); Potassium 4.2 mmol/L (3.4-5.0); Sodium 135 mmol/L (137-145); Total Protein 6.4 g/dL (6.3-8.2)
[2024-12-05 07:11] LABS: Hypochromasia 1+
[2024-12-05 07:12] LABS: Schistocytes None Seen
[2024-12-05 07:51] LABS: Anion Gap 5 mmol/L (4-12); Carbon Dioxide 39 mmol/L (22-30)
--- NOTE | 2024-12-05 08:25 | WPDINTPN ---
Progress Note: A&P Assessment and Plan (1) Acute on chronic respiratory failure with hypoxia and hypercapnia: Code(s): J96.21 - Acute and chronic respiratory failure with hypoxia; J96.22 - Acute and chronic respiratory failure with hypercapnia Status: Acute Assessment and Plan: Acute on chronic respiratory failure secondary to multifactorial combination of COPD, obesity hypoventilation syndrome, left-sided pneumonia, pulmonary edema, atelectasis 11/26: Patient was admitted for increasing/worsening dyspnea 1 day prior to admission. Patient was in the intermediate Unit, evaluated by pulmonology, has been noncompliant with his AVAPS/BiPAP. 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 Also was possibly delirious as he pulled out his IV lines and BiPAP mask. -was on propofol, dropped his blood pressures in the 40s systolic, propofol infusion were discontinued currently sedated with Versed and fentanyl Chest x-ray shows a consolidation versus atelectasis versus combination of 2 on the left side. Patient is a too big for CT scanner hence unable to evaluate 11/29 bronchoscopy was done. Minimal amount of secretions were seen. Chest x-ray reviewed this morning and shows improvement on the left side Currently on CMV mode of ventilation, 50% FiO2 and peep of 10. Decreased FiO2 to 45% continue weaning FiO2 Continue to elevate left side with pillows more than right Continue bronchodilators, Pulmozyme and Mucomyst nebs Continue chest PT has been ordered Weaned off Solu-Medrol Sputum culture is growing Pseudomonas. Nasal MRSA screen was positive. Patient was on vancomycin earlier it was discontinued yesterday. On a antibiotics for pneumonia- cefepime Lasix IV will be continued Not ready for weaning at this point but getting close will try to get down to 40% and 8 of PEEP before doing weaning trial. (2) COPD exacerbation: Code(s): J44.1 - Chronic obstructive pulmonary disease with (acute) exacerbation Status: Acute Assessment and Plan: See above (3) Pneumonia: Code(s): J18.9 - Pneumonia, unspecified organism Status: Acute Assessment and Plan: See above (4) Hypotension: Code(s): I95.9 - Hypotension, unspecified Status: Acute Assessment and Plan: Patient dropped his blood pressure is likely related to propofol infuse and positive-pressure ventilation -required phenylephrine push and Levophed infusion Now off (5) Atrial fibrillation with RVR: Code(s): I48.91 - Unspecified atrial fibrillation Status: Acute Assessment and Plan: Patient has a history of AFib with RVR, currently rate controlled but remains in atrial fibrillation -continue Eliquis (6) Type 2 diabetes mellitus: Qualifiers: Diabetes mellitus rn long term care insulin use: without rn long term care use Diabetes mellitus complication status: without complication Qualified Code(s): E11.9 - Type 2 diabetes mellitus without complications Code(s): E11.9 - Type 2 diabetes mellitus without complications Status: Acute Assessment and Plan: Accu-Cheks and sliding scale insulin Continue Lantus dose (7) Essential hypertension: Code(s): I10 - Essential (primary) hypertension Status: Acute Assessment and Plan: Hold antihypertensive medications at this time (8) KATIE (obstructive sleep apnea): Code(s): G47.33 - Obstructive sleep apnea (adult) (pediatric) Status: Acute Assessment and Plan: Non compliant with his CPAP/AVAPS -currently intubated (9) Edema of abdominal wall: Code(s): R60.0 - Localized edema Status: Acute Assessment and Plan: Edema of the abdominal wall on the left side likely related to dependent edema as patient fevers to lay on that side Lasix will be continued (10) Electrolyte abnormality: Code(s): E87.8 - Other disorders of electrolyte and fluid balance, not elsewhere classified Status: Acute Assessment and Plan: Potassium improved after placement Plan DVT prophylaxis: Apixaban Stress ulcer prophylaxis: Protonix Nutrition: Continue tube feeding at goal rate Code Status: Full code 12/01 Discussed and updated patient's daughter at bedside and answered all questions Critical Care Time Spent: 30 minutes Due to a high probability of clinically significant, life threatening deterioration, the patient required my highest level of preparedness to intervene emergently and I personally spent this critical care time directly and personally managing the patient. This critical care time included obtaining a history; examining the patient; pulse oximetry; ordering and review of studies; arranging urgent treatment with development of a management plan; evaluation of patient's response to treatment; frequent reassessment; and discussions with other providers. It was exclusive of separately billable procedures and treating other patients and teaching time. Please see Assessment and Plan section and the rest of the note for further information on patient assessment and treatment This dictation may have been done utilizing a voice recognition system. Attempts have been made to correct errors. However, there may be uncorrected grammatical, spelling, and recognitions errors present. Subjective Date/time seen: 12/05/24 Overnight events reviewed low-grade fever. Continues to be on mechanical ventilation 30% FiO2 and 10 of PEEP Tolerating tube feeding Continues to be sedated with Versed and fentanyl. Per nursing report patient was agitated overnight and sedation and being decreased but was lowered again this morning Other Vitals acceptable Good urine output in response to diuretics Interval history: 11/28 intubation 11/29 bronchoscopy Review of Systems Review of Systems: ROS unobtainable: Yes unobtainable due to endotracheal tube, unobtainable due to medical condition and unobtainable due to mental status Exam Narrative: General: Significantly obese gentleman, currently intubated, sedated in no acute distress HEENT:? Pupils equal and reactive, sclera is injected, ETT in place Neck:? Thick and short neck Respiratory:? Decreased air entry bilaterally no wheezing. Breath sounds are improved on the left side but still less than as compared to right side Chest: Left breast is larger than the right, indurated, warm and erythematous compared to the right side Cardiac:? Distant heart sounds, irregularly irregular Abdomen:? Morbidly obese, indurated and form on the left side with pitting edema, right side is softer with less edema, according the os daughter patient prefers to lay on the left side, causing possible dependent edema and swelling Extremities:? edema bilateral lower extremities, palpable pedal pulses Neuro:? Patient is intubated, sedated, does not open his eyes or follow simple commands for me but followed commands for the night nurse. He withdraws to pain. Skin:? Bruising noted on upper extremities, torso, chronic venous stasis changes on bilateral lower extremity Psych:? Unable to assess at this time Objective Data Vital Signs Vital Signs: Vital Signs - 24 hr 12/04/24 10:00 12/04/24 10:00 12/04/24 10:00 Temperature 37.2 C Pulse Rate 95 93 93 Respiratory Rate 20 20 20 Blood Pressure 129/66 Pulse Oximetry 94 Oxygen Delivery Fraction of Inspired Oxygen 12/04/24 10:00 12/04/24 10:53 12/04/24 12:00 Temperature 37.2 C Pulse Rate 94 97 Respiratory Rate 20 Blood Pressure 113/62 Pulse Oximetry 94 Oxygen Delivery Mechanical Ventilation Fraction of Inspired Oxygen 50 12/04/24 12:00 12/04/24 12:00 12/04/24 12:00 Temperature Pulse Rate 88 88 89 Respiratory Rate 20 20 Blood Pressure Pulse Oximetry Oxygen Delivery Fraction of Inspired Oxygen 12/04/24 12:00 12/04/24 12:00 12/04/24 13:58 Temperature Pulse Rate 88 Respiratory Rate 20 Blood Pressure Pulse Oximetry 94 Oxygen Delivery Mechanical Ventilation Fraction of Inspired Oxygen 50 50 12/04/24 13:59 12/04/24 14:00 12/04/24 14:00 Temperature 37.3 C Pulse Rate 78 90 93 Respiratory Rate 20 Blood Pressure 109/61 Pulse Oximetry 96 94 Oxygen Delivery Mechanical Ventilation Fraction of Inspired Oxygen 50 12/04/24 14:00 12/04/24 14:00 12/04/24 14:14 Temperature Pulse Rate 90 90 89 Respiratory Rate 20 20 20 Blood Pressure Pulse Oximetry Oxygen Delivery Fraction of Inspired Oxygen 12/04/24 15:57 12/04/24 15:57 12/04/24 16:00 Temperature Pulse Rate 92 92 100 Respiratory Rate 20 20 20 Blood Pressure Pulse Oximetry Oxygen Delivery Fraction of Inspired Oxygen 12/04/24 16:00 12/04/24 16:00 12/04/24 16:00 Temperature 37.3 C Pulse Rate 100 92 Respiratory Rate 20 20 Blood Pressure 127/67 Pulse Oximetry 95 94 Oxygen Delivery Mechanical Ventilation Fraction of Inspired Oxygen 50 12/04/24 16:00 12/04/24 16:00 12/04/24 17:11 Temperature Pulse Rate 95 89 Respiratory Rate Blood Pressure Pulse Oximetry 94 Oxygen Delivery Mechanical Ventilation Fraction of Inspired Oxygen 50 50 12/04/24 18:00 12/04/24 18:00 12/04/24 18:00 Temperature 37.3 C Pulse Rate 93 93 93 Respiratory Rate 20 20 Blood Pressure 108/60 Pulse Oximetry 94 Oxygen Delivery Fraction of Inspired Oxygen 12/04/24 18:00 12/04/24 20:00 12/04/24 20:00 Temperature 37.4 C Pulse Rate 93 93 90 Respiratory Rate 20 20 20 Blood Pressure 120/78 Pulse Oximetry 94 Oxygen Delivery Fraction of Inspired Oxygen 12/04/24 20:00 12/04/24 20:00 12/04/24 20:00 Temperature Pulse Rate 90 88 Respiratory Rate 20 Blood Pressure Pulse Oximetry Oxygen Delivery Fraction of Inspired Oxygen 50 12/04/24 20:24 12/04/24 20:38 12/04/24 20:39 Temperature Pulse Rate 92 94 92 Respiratory Rate 20 20 Blood Pressure Pulse Oximetry 95 Oxygen Delivery Mechanical Ventilation Fraction of Inspired Oxygen 50 12/04/24 22:00 12/04/24 22:00 12/04/24 22:00 Temperature Pulse Rate 101 H 101 H 103 H Respiratory Rate 20 20 Blood Pressure Pulse Oximetry Oxygen Delivery Fraction of Inspired Oxygen 12/04/24 22:00 12/04/24 22:20 12/04/24 22:23 Temperature 37.4 C Pulse Rate 103 H 115 H 120 H Respiratory Rate 21 H 28 H 27 H Blood Pressure 148/69 H Pulse Oximetry 92 Oxygen Delivery Fraction of Inspired Oxygen 12/04/24 22:58 12/04/24 23:35 12/04/24 23:50 Temperature 37.8 C H Pulse Rate 107 H 119 H Respiratory Rate 30 H Blood Pressure Pulse Oximetry 95 Oxygen Delivery Mechanical Ventilation Fraction of Inspired Oxygen 50 12/05/24 00:00 12/05/24 00:00 12/05/24 00:00 Temperature 37.8 C H Pulse Rate 124 H 120 H Respiratory Rate 27 H Blood Pressure 116/89 Pulse Oximetry 94 Oxygen Delivery Fraction of Inspired Oxygen 50 12/05/24 00:15 12/05/24 00:15 12/05/24 00:50 Temperature 37.9 C H Pulse Rate 110 H 110 H Respiratory Rate 20 20 Blood Pressure Pulse Oximetry Oxygen Delivery Fraction of Inspired Oxygen 12/05/24 00:52 12/05/24 01:10 12/05/24 02:00 Temperature Pulse Rate 100 156 H 117 H Respiratory Rate 25 H Blood Pressure Pulse Oximetry 97 Oxygen Delivery Mechanical Ventilation Fraction of Inspired Oxygen 50 12/05/24 02:00 12/05/24 02:00 12/05/24 02:00 Temperature 37.9 C H Pulse Rate 117 H 117 H 117 H Respiratory Rate 21 H 22 H 22 H Blood Pressure 147/79 H Pulse Oximetry 96 Oxygen Delivery Fraction of Inspired Oxygen 12/05/24 02:40 12/05/24 02:40 12/05/24 02:44 Temperature Pulse Rate 128 H 128 H 122 H Respiratory Rate 30 H 30 H 32 H Blood Pressure Pulse Oximetry Oxygen Delivery Fraction of Inspired Oxygen 12/05/24 02:59 12/05/24 03:00 12/05/24 03:35 Temperature Pulse Rate 122 H 121 H 135 H Respiratory Rate 32 H 28 H Blood Pressure Pulse Oximetry 94 Oxygen Delivery Mechanical Ventilation Fraction of Inspired Oxygen 50 12/05/24 04:00 12/05/24 04:00 12/05/24 04:00 Temperature Pulse Rate 102 H 102 H 114 H Respiratory Rate 21 H 21 H Blood Pressure Pulse Oximetry Oxygen Delivery Fraction of Inspired Oxygen 12/05/24 04:00 12/05/24 04:00 12/05/24 04:50 Temperature 37.9 C H Pulse Rate 108 H 108 H Respiratory Rate 20 Blood Pressure 115/62 Pulse Oximetry 92 89 L Oxygen Delivery Mechanical Ventilation Fraction of Inspired Oxygen 50 65 12/05/24 04:55 12/05/24 04:55 12/05/24 06:00 Temperature Pulse Rate 98 98 101 H Respiratory Rate 20 20 Blood Pressure Pulse Oximetry Oxygen Delivery Fraction of Inspired Oxygen 12/05/24 06:00 12/05/24 06:00 12/05/24 06:00 Temperature 37.9 C H Pulse Rate 101 H 101 H 101 H Respiratory Rate 20 20 20 Blood Pressure 111/62 Pulse Oximetry 97 Oxygen Delivery Fraction of Inspired Oxygen 12/05/24 07:52 12/05/24 07:52 12/05/24 08:05 Temperature Pulse Rate 99 99 92 Respiratory Rate 20 20 20 Blood Pressure Pulse Oximetry Oxygen Delivery Fraction of Inspired Oxygen 12/05/24 08:06 Temperature Pulse Rate 95 Respiratory Rate Blood Pressure Pulse Oximetry 97 Oxygen Delivery Mechanical Ventilation Fraction of Inspired Oxygen 45 Intake/Output Intake/Output: Intake & Output 12/02/24 12/03/24 12/04/24 12/05/24 23:59 23:59 23:59 23:59 Intake Total 2519.5 2779.1 2269.2 1094.9 Output Total 6700 6600 6360 1675 Balance -4180.5 -3820.9 -4090.8 -580.1 Meds/Results Medications: Active Medications Generic Name Dose Route Start Last Admin Trade Name Freq PRN Reason Stop Dose Admin Acetaminophen 650 mg 11/26/24 14:25 12/04/24 23:50 Acetaminophen 325 Mg Tablet PO 650 mg Q6H PRN Administration Mild Pain (1-3) or Fever Acetylcysteine 200 mg 11/28/24 08:55 12/05/24 07:58 Acetylcysteine 20% Inhal Soln 800 Mg/4 Ml Vial INHALATION 200 mg Q6HRT EDMUNDO Administration Apixaban 5 mg 11/26/24 21:00 12/04/24 21:16 Apixaban 5 Mg Tablet PO 5 mg Q12HR EDMUNDO Administration Dextrose 12.5 gm 11/26/24 16:15 Dextrose 50% 25 Gm/50 Ml Syringe IV PUSH PRN PRN Hypoglycemia Protocol Glucagon 1 mg 11/26/24 16:15 Glucagon For Inj 1 Mg Vial IM PRN PRN Hypoglycemia Protocol Glucose 15 gm 11/26/24 16:15 Glucose Oral Gel 15 Gm Of Glucse In 37.5 Gm Tube PO PRN PRN Hypoglycemia Protocol Dextrose 1,000 mls @ 100 mls/hr 11/26/24 16:15 Dextrose 5% 1,000 Ml IVPB PRN PRN Hypoglycemia Protocol Fentanyl Citrate 2,500 mcg in 250 mls @ 7.5 mls/hr 11/28/24 06:55 12/05/24 07:52 Fentanyl 2,500 Mcg/Ns 250 Ml IV CONT 75 mcg/hr .[id number] EDMUNDO 7.5 mls/hr Protocol Titration 75 MCG/HR Midazolam HCl 100 mg in 100 mls @ 0 mls/hr 11/28/24 06:55 12/05/24 07:52 Versed 100 Mg/Ns 100 Ml IV CONT 0 mg/hr .Q0M EDMUNDO 0 mls/hr Protocol Titration Cefepime HCl 2 gm/ Sodium 50 mls @ 100 mls/hr 11/28/24 14:00 12/05/24 07:30 Chloride IVPB Infused Q8HR EDMUNDO Infusion Magnesium Sulfate 2 gm in 50 mls @ 25 mls/hr 12/05/24 08:00 Magnesium Sulf 2 Gm/Water 50ml IVPB 12/05/24 09:59 ONCE ONE Insulin Aspart 3 - 6 units 11/28/24 06:50 12/05/24 00:30 Insulin Aspart (*Bkc) 100 Units/Ml SUB-Q Not Given Q6HR [facility] Protocol Insulin Glargine 25 units 12/01/24 09:00 12/04/24 08:49 Insulin Glargine (*Bkc) 100 Units/Ml SUB-Q 25 units QAM EDMUNDO Administration Ipratropium [place] 0.5 mg 11/29/24 08:00 12/05/24 07:58 Ipratropium Br 0.02% Inh Soln 0.5 Mg/2.5 Ml Vial INHALATION 0.5 mg Q6HRT EDMUNDO Administration Levalbuterol HCl 1.25 mg 11/29/24 20:00 12/05/24 07:58 Levalbuterol Neb 1.25 Mg/3 Ml INHALATION 1.25 mg Q6HRT EDMUNDO Administration Multi-Ingred Cream/Lotion/Oil/Oint 1 applic 11/28/24 09:00 12/04/24 21:16 Mineral Oil/White Petrolatum Ointment EACH EYE 1 applic Q12HR EDMUNDO Administration Pantoprazole Sodium 40 mg 11/29/24 09:00 12/04/24 08:33 Pantoprazole Sodium Iv 40 Mg Vial IV PUSH 40 mg QAM EDMUNDO Administration Sertraline HCl 50 mg 11/27/24 09:00 11/28/24 12:06 Sertraline Hcl 50 Mg Tablet PO 50 mg On Hold: 11/29/24 08:16 DAILY EDMUNDO Administration Sodium Chloride 10 ml 11/28/24 14:00 12/04/24 21:35 Central Line Flush IV PUSH 10 ml Q8HR EDMUNDO Administration Sodium Chloride 20 ml 11/28/24 11:53 12/03/24 05:31 Central Line Flush IV PUSH 20 ml PRN PRN Administration after blood draws Radiology Results: ITS Impressions Chest X-Ray 12/05/24 07:51 IMPRESSION: 1. Unchanged small bilateral posterior layering pleural effusions with more dense atelectasis or pneumonia in the left lower lung zone. Labs Labs: Laboratory Results - last 24 hr 12/04/24 12/04/24 12/05/24 11:35 17:48 00:30 WBC RBC Hgb Hct MCV MCH MCHC RDW Plt Count MPV Immature Gran % (Auto) Neut % (Auto) Lymph % (Auto) [place] % (Auto) Eos % (Auto) Baso % (Auto) Lymph # (Auto) [place] # (Auto) Eos # (Auto) Baso # (Auto) Abs Immat Gran (auto) Absolute Neuts (auto) Absolute Nucleated RBC Band Neutrophils % Nucleated RBC % Platelet Estimate Hypochromasia Schistocytes Puncture Site ABG pH ABG pCO2 ABG pO2 ABG PO2/FiO2 Ratio ABG HCO3 ABG O2 Saturation ABG O2 Content ABG Base Excess A-a Gradient Oxyhemoglobin Carboxyhemoglobin Methemoglobin Reduced Hemoglobin Total Hemoglobin O2 Delivery Device O2 Liters/Min Minute Volume Vent Rate Vent Mode FiO2 Tidal Volume PEEP Peak Inspir Pressure Pressure Support Sodium Potassium Chloride Carbon Dioxide Anion Gap BUN Creatinine Estim Creat Clear Calc Estimated GFR Glucose POC Capillary Glucose 180 H 170 H 198 H Calcium Phosphorus Magnesium Total Bilirubin AST ALT Alkaline Phosphatase Total Protein Albumin 12/05/24 12/05/24 04:39 05:58 WBC 11.6 H RBC 4.92 Hgb 13.4 L Hct 45.4 MCV 92.3 MCH 27.2 MCHC 29.5 L RDW 16.6 H Plt Count 156 MPV 10.6 H Immature Gran % (Auto) 0.4 Neut % (Auto) 78.1 H Lymph % (Auto) 9.9 L Kimball % (Auto) 10.4 H Eos % (Auto) 1.1 Baso % (Auto) 0.1 L Lymph # (Auto) 1.14 Kimball # (Auto) 1.2 H Eos # (Auto) 0.1 Baso # (Auto) 0.0 Abs Immat Gran (auto) 0.05 H Absolute Neuts (auto) 9.0 H Absolute Nucleated RBC 0.000 Band Neutrophils % Not Reportable Nucleated RBC % 0.0 Platelet Estimate Adequate Hypochromasia 1+ Schistocytes None seen Puncture Site Artline ABG pH 7.443 ABG pCO2 57.0 H ABG pO2 57.0 L ABG PO2/FiO2 Ratio 1.14 ABG HCO3 38.1 H ABG O2 Saturation 90.1 L ABG O2 Content 17.5 ABG Base Excess 11.6 A-a Gradient 235.4 Oxyhemoglobin 87.7 L* Carboxyhemoglobin 1.6 Methemoglobin 0.0 Reduced Hemoglobin 10.7 H Total Hemoglobin 14.2 O2 Delivery Device Ventilator O2 Liters/Min Not Reportable Minute Volume Not Reportable Vent Rate 20 Vent Mode Cmv FiO2 50 Tidal Volume 450 PEEP 10 Peak Inspir Pressure Not Reportable Pressure Support Not Reportable Sodium 135 L Potassium 4.2 Chloride 91 L Carbon Dioxide 39 H Anion Gap 5 BUN 37 H Creatinine 0.60 L Estim Creat Clear Calc 183 Estimated GFR > 60 Glucose 171 H POC Capillary Glucose Calcium 8.2 L Phosphorus 3.4 Magnesium 1.8 Total Bilirubin 1.6 H AST 30 ALT 25 Alkaline Phosphatase 106 Total Protein 6.4 Albumin 3.1 L Quality VTE Prophylaxis VTE prophylaxis: pharmacologic ordered
[2024-12-05] MEDS: FUROSEMIDE INJ 100 MG/10 ML VIAL 80 MG IV PUSH (09:48)
[2024-12-05] MEDS: PANTOPRAZOLE SODIUM IV 40 MG VIAL IV PUSH (09:48)
[2024-12-05] MEDS: MINERAL OIL/WHITE PETROLATUM OINTMENT 1 APPLIC EACH EYE ×2 (09:49→20:42)
[2024-12-05] MEDS: CENTRAL LINE FLUSH 10 ML IV PUSH ×3 (09:49→22:08)
[2024-12-05] MEDS: MAGNESIUM SULF 2 GM/WATER 50ML 2 GM/50 ML BAG IVPB (09:49)
[2024-12-05] MEDS: APIXABAN 5 MG TABLET PO ×2 (09:49→20:42)
[2024-12-05] MEDS: INSULIN GLARGINE (*BKC) 100 UNITS/ML 25 UNITS SUB-Q (09:51)
--- NOTE | 2024-12-05 11:31 | PCFNICU ---
ICU Rounding Note: Pt current nutrition is Vital HP at 70 ml/hr. Last recorded weight is 198 kg, down from 225 kg on admit. Bowel Motility: No BM reported. Labs Reviewed:Glu 171 BUN 37, Alb 3.1, Na 135 Meds Noted:Miralax, Dulcolax, Fentanyl. Skin: WNL Additional Notes: Patient remains on mechanical vent. Tube feedings are being tolerated of Vital HP at 70 ml/hr. Total Nutrition: 1584 kcal/134 gm protein/1287 ml water. Flush 30 ml q 4 hours. Agree with diet orders. Following daily in ICU rounds. Will monitor weight, labs, skin, diet orders, meds every Thursday and Thursday.
[2024-12-05] MEDS: BISACODYL 5 MG TABLET EC PO (11:36)
[2024-12-05] MEDS: FENTANYL 2,500MCG/NS250ML(*CRX 2,500 MCG/250 ML BAG 7.5 MCG IV CONT (12:47)
--- NOTE | 2024-12-05 14:04 | PM.IMPN ---
Progress Note: A&P Assessment and Plan (1) Acute on chronic respiratory failure with hypoxia and hypercapnia: Code(s): J96.21 - Acute and chronic respiratory failure with hypoxia; J96.22 - Acute and chronic respiratory failure with hypercapnia Status: Acute Assessment and Plan: Acute on chronic respiratory failure secondary to multifactorial combination of COPD, obesity hypoventilation syndrome, left-sided pneumonia, pulmonary edema, atelectasis 11/26: Patient was admitted for increasing/worsening dyspnea 1 day prior to admission. Patient was in the intermediate Unit, evaluated by pulmonology, has been noncompliant with his AVAPS/BiPAP. 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 Also was possibly delirious as he pulled out his IV lines and BiPAP mask. -was on propofol, dropped his blood pressures in the 40s systolic, propofol infusion were discontinued currently sedated with Versed and fentanyl Chest x-ray shows a consolidation versus atelectasis versus combination of 2 on the left side. Patient is a too big for CT scanner hence unable to evaluate 11/29 bronchoscopy was done. Minimal amount of secretions were seen. Chest x-ray reviewed this morning and shows improvement on the left side Currently on CMV mode of ventilation, 50% FiO2 and peep of 10. Decreased FiO2 to 45% continue weaning FiO2 Continue to elevate left side with pillows more than right Continue bronchodilators, Pulmozyme and Mucomyst nebs Continue chest PT has been ordered Weaned off Solu-Medrol Sputum culture is growing Pseudomonas. Nasal MRSA screen was positive. Patient was on vancomycin earlier it was discontinued yesterday. On a antibiotics for pneumonia- cefepime Lasix IV will be continued Not ready for weaning at this point but getting close will try to get down to 40% and 8 of PEEP before doing weaning trial. 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 (2) COPD exacerbation: Code(s): J44.1 - Chronic obstructive pulmonary disease with (acute) exacerbation Status: Acute Assessment and Plan: See above (3) Pneumonia: Code(s): J18.9 - Pneumonia, unspecified organism Status: Acute Assessment and Plan: See above (4) Hypotension: Code(s): I95.9 - Hypotension, unspecified Status: Acute Assessment and Plan: Patient dropped his blood pressure is likely related to propofol infuse and positive-pressure ventilation -required phenylephrine push and Levophed infusion Now off (5) Atrial fibrillation with RVR: Code(s): I48.91 - Unspecified atrial fibrillation Status: Acute Assessment and Plan: Patient has a history of AFib with RVR, currently rate controlled but remains in atrial fibrillation -continue Eliquis (6) Type 2 diabetes mellitus: Qualifiers: Diabetes mellitus long chain beamer insulin use: without nursing home use Diabetes mellitus complication status: without complication Qualified Code(s): E11.9 - Type 2 diabetes mellitus without complications Code(s): E11.9 - Type 2 diabetes mellitus without complications Status: Acute Assessment and Plan: Accu-Cheks and sliding scale insulin Continue Lantus dose (7) Essential hypertension: Code(s): I10 - Essential (primary) hypertension Status: Acute Assessment and Plan: Hold antihypertensive medications at this time (8) KATIE (obstructive sleep apnea): Code(s): G47.33 - Obstructive sleep apnea (adult) (pediatric) Status: Acute Assessment and Plan: Non compliant with his CPAP/AVAPS -currently intubated (9) Edema of abdominal wall: Code(s): R60.0 - Localized edema Status: Acute Assessment and Plan: Edema of the abdominal wall on the left side likely related to dependent edema as patient fevers to lay on that side Lasix will be continued (10) Electrolyte abnormality: Code(s): E87.8 - Other disorders of electrolyte and fluid balance, not elsewhere classified Status: Acute Assessment and Plan: Potassium improved after placement Plan DVT prophylaxis: Apixaban Stress ulcer prophylaxis: Protonix Nutrition: Continue tube feeding at goal rate Code Status: Full code Subjective Date/time seen: 12/05/24 14:04 Interval history: still intubated and sedated Review of Systems Review of Systems: All systems are reviewed and are negative unless stated otherwise in the HPI. ROS unobtainable: Yes unobtainable due to endotracheal tube, unobtainable due to medical condition and unobtainable due to mental status Exam Narrative: General: Significantly obese gentleman, currently intubated, sedated in no acute distress HEENT:? Pupils equal and reactive, sclera is injected, ETT in place Neck:? Thick and short neck Respiratory:? Decreased air entry bilaterally no wheezing. Breath sounds are improved on the left side but still less than as compared to right side Chest: Left breast is larger than the right, indurated, warm and erythematous compared to the right side Cardiac:? Distant heart sounds, irregularly irregular Abdomen:? Morbidly obese, indurated and form on the left side with pitting edema, right side is softer with less edema, according the os daughter patient prefers to lay on the left side, causing possible dependent edema and swelling Extremities:? edema bilateral lower extremities, palpable pedal pulses Neuro:? Patient is intubated, sedated, does not open his eyes or follow simple commands for me but followed commands for the night nurse. He withdraws to pain. Skin:? Bruising noted on upper extremities, torso, chronic venous stasis changes on bilateral lower extremity Psych:? Unable to assess at this time Objective Data Vital Signs Vital Signs: Vital Signs - 24 hr 12/04/24 14:14 12/04/24 15:57 12/04/24 15:57 Temperature Pulse Rate 89 92 92 Respiratory Rate 20 20 20 Blood Pressure Pulse Oximetry Oxygen Delivery Fraction of Inspired Oxygen 12/04/24 16:00 12/04/24 16:00 12/04/24 16:00 Temperature 99.1 F Pulse Rate 100 100 92 Respiratory Rate 20 20 20 Blood Pressure 127/67 Pulse Oximetry 95 Oxygen Delivery Fraction of Inspired Oxygen 12/04/24 16:00 12/04/24 16:00 12/04/24 16:00 Temperature Pulse Rate 95 Respiratory Rate Blood Pressure Pulse Oximetry 94 Oxygen Delivery Mechanical Ventilation Fraction of Inspired Oxygen 50 50 12/04/24 17:11 12/04/24 18:00 12/04/24 18:00 Temperature 99.2 F Pulse Rate 89 93 93 Respiratory Rate 20 Blood Pressure 108/60 Pulse Oximetry 94 94 Oxygen Delivery Mechanical Ventilation Fraction of Inspired Oxygen 50 12/04/24 18:00 12/04/24 18:00 12/04/24 20:00 Temperature 99.3 F Pulse Rate 93 93 93 Respiratory Rate 20 20 20 Blood Pressure 120/78 Pulse Oximetry 94 Oxygen Delivery Fraction of Inspired Oxygen 12/04/24 20:00 12/04/24 20:00 12/04/24 20:00 Temperature Pulse Rate 90 90 88 Respiratory Rate 20 20 Blood Pressure Pulse Oximetry Oxygen Delivery Fraction of Inspired Oxygen 12/04/24 20:00 12/04/24 20:24 12/04/24 20:38 Temperature Pulse Rate 92 94 Respiratory Rate 20 20 Blood Pressure Pulse Oximetry Oxygen Delivery Fraction of Inspired Oxygen 50 12/04/24 20:39 12/04/24 22:00 12/04/24 22:00 Temperature Pulse Rate 92 101 H 101 H Respiratory Rate 20 20 Blood Pressure Pulse Oximetry 95 Oxygen Delivery Mechanical Ventilation Fraction of Inspired Oxygen 50 12/04/24 22:00 12/04/24 22:00 12/04/24 22:20 Temperature 99.4 F Pulse Rate 103 H 103 H 115 H Respiratory Rate 21 H 28 H Blood Pressure 148/69 H Pulse Oximetry 92 Oxygen Delivery Fraction of Inspired Oxygen 12/04/24 22:23 12/04/24 22:58 12/04/24 23:35 Temperature Pulse Rate 120 H 107 H 119 H Respiratory Rate 27 H 30 H Blood Pressure Pulse Oximetry 95 Oxygen Delivery Mechanical Ventilation Fraction of Inspired Oxygen 50 12/04/24 23:50 12/05/24 00:00 12/05/24 00:00 Temperature 100.1 F H 100.1 F H Pulse Rate 124 H 120 H Respiratory Rate 27 H Blood Pressure 116/89 Pulse Oximetry 94 Oxygen Delivery Fraction of Inspired Oxygen 12/05/24 00:00 12/05/24 00:15 12/05/24 00:15 Temperature Pulse Rate 110 H 110 H Respiratory Rate 20 20 Blood Pressure Pulse Oximetry Oxygen Delivery Fraction of Inspired Oxygen 50 12/05/24 00:50 12/05/24 00:52 12/05/24 01:10 Temperature 100.2 F H Pulse Rate 100 156 H Respiratory Rate 25 H Blood Pressure Pulse Oximetry 97 Oxygen Delivery Mechanical Ventilation Fraction of Inspired Oxygen 50 12/05/24 02:00 12/05/24 02:00 12/05/24 02:00 Temperature 100.2 F H Pulse Rate 117 H 117 H 117 H Respiratory Rate 21 H 22 H Blood Pressure 147/79 H Pulse Oximetry 96 Oxygen Delivery Fraction of Inspired Oxygen 12/05/24 02:00 12/05/24 02:40 12/05/24 02:40 Temperature Pulse Rate 117 H 128 H 128 H Respiratory Rate 22 H 30 H 30 H Blood Pressure Pulse Oximetry Oxygen Delivery Fraction of Inspired Oxygen 12/05/24 02:44 12/05/24 02:59 12/05/24 03:00 Temperature Pulse Rate 122 H 122 H 121 H Respiratory Rate 32 H 32 H Blood Pressure Pulse Oximetry 94 Oxygen Delivery Mechanical Ventilation Fraction of Inspired Oxygen 50 12/05/24 03:35 12/05/24 04:00 12/05/24 04:00 Temperature Pulse Rate 135 H 102 H 102 H Respiratory Rate 28 H 21 H 21 H Blood Pressure Pulse Oximetry Oxygen Delivery Fraction of Inspired Oxygen 12/05/24 04:00 12/05/24 04:00 12/05/24 04:00 Temperature 100.3 F H Pulse Rate 114 H 108 H Respiratory Rate 20 Blood Pressure 115/62 Pulse Oximetry 92 Oxygen Delivery Fraction of Inspired Oxygen 50 12/05/24 04:50 12/05/24 04:55 12/05/24 04:55 Temperature Pulse Rate 108 H 98 98 Respiratory Rate 20 20 Blood Pressure Pulse Oximetry 89 L Oxygen Delivery Mechanical Ventilation Fraction of Inspired Oxygen 65 12/05/24 06:00 12/05/24 06:00 12/05/24 06:00 Temperature 100.2 F H Pulse Rate 101 H 101 H 101 H Respiratory Rate 20 20 Blood Pressure 111/62 Pulse Oximetry 97 Oxygen Delivery Fraction of Inspired Oxygen 12/05/24 06:00 12/05/24 07:52 12/05/24 07:52 Temperature Pulse Rate 101 H 99 99 Respiratory Rate 20 20 20 Blood Pressure Pulse Oximetry Oxygen Delivery Fraction of Inspired Oxygen 12/05/24 08:00 12/05/24 08:00 12/05/24 08:00 Temperature Pulse Rate 86 Respiratory Rate Blood Pressure Pulse Oximetry Oxygen Delivery Mechanical Ventilation Fraction of Inspired Oxygen 45 45 12/05/24 08:00 12/05/24 08:00 12/05/24 08:00 Temperature 100.2 F H Pulse Rate 94 94 94 Respiratory Rate 20 20 20 Blood Pressure 118/76 Pulse Oximetry 97 Oxygen Delivery Fraction of Inspired Oxygen 12/05/24 08:05 12/05/24 08:06 12/05/24 08:25 Temperature Pulse Rate 92 95 105 H Respiratory Rate 20 20 Blood Pressure Pulse Oximetry 97 Oxygen Delivery Mechanical Ventilation Fraction of Inspired Oxygen 45 12/05/24 10:00 12/05/24 10:00 12/05/24 10:00 Temperature 100.2 F H Pulse Rate 99 99 99 Respiratory Rate 20 20 Blood Pressure 145/91 H Pulse Oximetry 96 Oxygen Delivery Fraction of Inspired Oxygen 12/05/24 10:00 12/05/24 11:13 12/05/24 12:00 Temperature Pulse Rate 99 91 Respiratory Rate 20 Blood Pressure Pulse Oximetry 96 Oxygen Delivery Mechanical Ventilation Fraction of Inspired Oxygen 45 45 12/05/24 12:00 12/05/24 12:00 12/05/24 12:00 Temperature 99.8 F H Pulse Rate 104 H 100 Respiratory Rate 20 Blood Pressure 139/89 Pulse Oximetry 97 Oxygen Delivery Mechanical Ventilation Fraction of Inspired Oxygen 45 12/05/24 12:00 12/05/24 12:47 12/05/24 12:47 Temperature Pulse Rate 104 H 114 H 114 H Respiratory Rate 20 21 H 21 H Blood Pressure Pulse Oximetry Oxygen Delivery Fraction of Inspired Oxygen 12/05/24 14:00 12/05/24 14:01 Temperature Pulse Rate 98 101 H Respiratory Rate 21 H 20 Blood Pressure Pulse Oximetry Oxygen Delivery Fraction of Inspired Oxygen Intake/Output Intake/Output: Intake & Output 12/02/24 12/03/24 12/04/24 12/05/24 23:59 23:59 23:59 23:59 Intake Total 2519.5 2779.1 2269.2 1140.9 Output Total 6700 6600 6360 4800 Balance -4180.5 -3820.9 -4090.8 -3659.1 Meds/Results Medications: Active Medications Generic Name Dose Route Start Last Admin Trade Name Freq PRN Reason Stop Dose Admin Acetaminophen 650 mg 11/26/24 14:25 12/04/24 23:50 Acetaminophen 325 Mg Tablet PO 650 mg Q6H PRN Administration Mild Pain (1-3) or Fever Acetylcysteine 200 mg 11/28/24 08:55 12/05/24 07:58 Acetylcysteine 20% Inhal Soln 800 Mg/4 Ml Vial INHALATION 200 mg Q6HRT EDMUNDO Administration Apixaban 5 mg 11/26/24 21:00 12/05/24 09:49 Apixaban 5 Mg Tablet PO 5 mg Q12HR EDMUNDO Administration Bisacodyl 5 mg 12/05/24 10:16 12/05/24 11:36 Bisacodyl 5 Mg Tablet Ec PO 5 mg QAM PRN Administration Constipation Dextrose 12.5 gm 11/26/24 16:15 Dextrose 50% 25 Gm/50 Ml Syringe IV PUSH PRN PRN Hypoglycemia Protocol Glucagon 1 mg 11/26/24 16:15 Glucagon For Inj 1 Mg Vial IM PRN PRN Hypoglycemia Protocol Glucose 15 gm 11/26/24 16:15 Glucose Oral Gel 15 Gm Of Glucse In 37.5 Gm Tube PO PRN PRN Hypoglycemia Protocol Dextrose 1,000 mls @ 100 mls/hr 11/26/24 16:15 Dextrose 5% 1,000 Ml IVPB PRN PRN Hypoglycemia Protocol Fentanyl Citrate 2,500 mcg in 250 mls @ 7.5 mls/hr 11/28/24 06:55 12/05/24 14:00 Fentanyl 2,500 Mcg/Ns 250 Ml IV CONT 75 mcg/hr .[id number] EDMUNDO 7.5 mls/hr Protocol Titration 75 MCG/HR Midazolam HCl 100 mg in 100 mls @ 0 mls/hr 11/28/24 06:55 12/05/24 14:01 Versed 100 Mg/Ns 100 Ml IV CONT 0 mg/hr .Q0M EDMUNDO 0 mls/hr Protocol Titration Insulin Aspart 3 - 6 units 11/28/24 06:50 12/05/24 11:43 Insulin Aspart (*Bkc) 100 Units/Ml SUB-Q Not Given Q6HR EDMUNDO Protocol Insulin Glargine 25 units 12/01/24 09:00 12/05/24 09:51 Insulin Glargine (*Bkc) 100 Units/Ml SUB-Q 25 units QAM EDMUNDO Administration Ipratropium [place] 0.5 mg 11/29/24 08:00 12/05/24 07:58 Ipratropium Br 0.02% Inh Soln 0.5 Mg/2.5 Ml Vial INHALATION 0.5 mg Q6HRT EDMUNDO Administration Levalbuterol HCl 1.25 mg 11/29/24 20:00 12/05/24 07:58 Levalbuterol Neb 1.25 Mg/3 Ml INHALATION 1.25 mg Q6HRT EDMUNDO Administration Levofloxacin 750 mg 12/05/24 11:10 12/05/24 11:36 Levofloxacin 750 Mg Tablet FEED TUBE 750 mg DAILY EDMUNDO Administration Multi-Ingred Cream/Lotion/Oil/Oint 1 applic 11/28/24 09:00 12/05/24 09:49 Mineral Oil/White Petrolatum Ointment EACH EYE 1 applic Q12HR EDMUNDO Administration Pantoprazole Sodium 40 mg 11/29/24 09:00 12/05/24 09:48 Pantoprazole Sodium Iv 40 Mg Vial IV PUSH 40 mg QAM EDMUNDO Administration Polyethylene Glycol 17 gm 12/05/24 10:20 12/05/24 11:36 Polyethylene Glycol 3350 17 Gm Powd.Pack PO 17 gm QAM EDMUNDO Administration Sertraline HCl 50 mg 11/27/24 09:00 11/28/24 12:06 Sertraline Hcl 50 Mg Tablet PO 50 mg On Hold: 11/29/24 08:16 DAILY EDMUNDO Administration Sodium Chloride 10 ml 11/28/24 14:00 12/05/24 09:49 Central Line Flush IV PUSH 10 ml Q8HR EDMUNDO Administration Sodium Chloride 20 ml 11/28/24 11:53 12/03/24 05:31 Central Line Flush IV PUSH 20 ml PRN PRN Administration after blood draws Radiology Results: ITS Impressions Chest X-Ray 12/05/24 07:51 IMPRESSION: 1. Unchanged small bilateral posterior layering pleural effusions with more dense atelectasis or pneumonia in the left lower lung zone. Labs Labs: Laboratory Results - last 24 hr 12/04/24 12/05/24 12/05/24 17:48 00:30 04:39 WBC RBC Hgb Hct MCV MCH MCHC RDW Plt Count MPV Immature Gran % (Auto) Neut % (Auto) Lymph % (Auto) [place] % (Auto) Eos % (Auto) Baso % (Auto) Lymph # (Auto) [place] # (Auto) Eos # (Auto) Baso # (Auto) Abs Immat Gran (auto) Absolute Neuts (auto) Absolute Nucleated RBC Band Neutrophils % Nucleated RBC % Platelet Estimate Hypochromasia Schistocytes Puncture Site Artline ABG pH 7.443 ABG pCO2 57.0 H ABG pO2 57.0 L ABG PO2/FiO2 Ratio 1.14 ABG HCO3 38.1 H ABG O2 Saturation 90.1 L ABG O2 Content 17.5 ABG Base Excess 11.6 A-a Gradient 235.4 Oxyhemoglobin 87.7 L* Carboxyhemoglobin 1.6 Methemoglobin 0.0 Reduced Hemoglobin 10.7 H Total Hemoglobin 14.2 O2 Delivery Device Ventilator O2 Liters/Min Not Reportable Minute Volume Not Reportable Vent Rate 20 Vent Mode Cmv FiO2 50 Tidal Volume 450 PEEP 10 Peak Inspir Pressure Not Reportable Pressure Support Not Reportable Sodium Potassium Chloride Carbon Dioxide Anion Gap BUN Creatinine Estim Creat Clear Calc Estimated GFR Glucose POC Capillary Glucose 170 H 198 H Calcium Phosphorus Magnesium Total Bilirubin AST ALT Alkaline Phosphatase Total Protein Albumin 12/05/24 12/05/24 05:58 11:41 WBC 11.6 H RBC 4.92 Hgb 13.4 L Hct 45.4 MCV 92.3 MCH 27.2 MCHC 29.5 L RDW 16.6 H Plt Count 156 MPV 10.6 H Immature Gran % (Auto) 0.4 Neut % (Auto) 78.1 H Lymph % (Auto) 9.9 L [place] % (Auto) 10.4 H Eos % (Auto) 1.1 Baso % (Auto) 0.1 L Lymph # (Auto) 1.14 [place] # (Auto) 1.2 H Eos # (Auto) 0.1 Baso # (Auto) 0.0 Abs Immat Gran (auto) 0.05 H Absolute Neuts (auto) 9.0 H Absolute Nucleated RBC 0.000 Band Neutrophils % Not Reportable Nucleated RBC % 0.0 Platelet Estimate Adequate Hypochromasia 1+ Schistocytes None seen Puncture Site ABG pH ABG pCO2 ABG pO2 ABG PO2/FiO2 Ratio ABG HCO3 ABG O2 Saturation ABG O2 Content ABG Base Excess A-a Gradient Oxyhemoglobin Carboxyhemoglobin Methemoglobin Reduced Hemoglobin Total Hemoglobin O2 Delivery Device O2 Liters/Min Minute Volume Vent Rate Vent Mode FiO2 Tidal Volume PEEP Peak Inspir Pressure Pressure Support Sodium 135 L Potassium 4.2 Chloride 91 L Carbon Dioxide 39 H Anion Gap 5 BUN 37 H Creatinine 0.60 L Estim Creat Clear Calc 183 Estimated GFR > 60 Glucose 171 H POC Capillary Glucose 191 H Calcium 8.2 L Phosphorus 3.4 Magnesium 1.8 Total Bilirubin 1.6 H AST 30 ALT 25 Alkaline Phosphatase 106 Total Protein 6.4 Albumin 3.1 L Quality VTE Prophylaxis VTE prophylaxis: pharmacologic ordered
--- NOTE | 2024-12-05 16:38 | PC.NURSE ---
Notified MD that the patient has become more restless, pulling at restraints. ART line bleeding at the site but still intact. Received order to d/c versed and start propofol, continue fentanyl. Order to keep the ART line. All orders read back and verified.
[2024-12-05] MEDS: PROPOFOL IV EMULSION 100 ML 5.94 MG IV CONT (17:20)
[2024-12-05 17:25] LABS: Triglycerides 82 mg/dL (<150)
--- NOTE | 2024-12-05 18:34 | ECG_ITS ---
Test Date: 2024-12-05 17:08:08 Measurements Intervals [place] Rate: 112 P: 0 CO: 0 QRS: -25 QRSD: 121 T: 63 QT: 331 QTc: 453 Interpretive Statements ATRIAL FIBRILLATION WITH RAPID VENTRICULAR RESPONSE INCOMPLETE RIGHT BUNDLE BRANCH BLOCK LOW-VOLTAGE QRS ABNORMAL ECG Compared to ECG 11/26/2024 03:34:03 NO SIGNIFICANT CHANGE Electronically Signed On 12-06-2024 12:14:48 CDT by Mello Sifuentes M.D.
[2024-12-06] VITALS (49 sets, daily range): BP systolic 94–154; BP diastolic 58–95; PULSE 6–115; RESP 15–24; TEMP 37.3–38.1; O2SAT 92–100
[2024-12-06] MEDS: ACETYLCYSTEINE 20% INHAL SOLN 800 MG/4 ML VIAL 200 MG INHALATION ×4 (01:18→20:00)
[2024-12-06] MEDS: IPRATROPIUM BR 0.02% INH SOLN 0.5 MG/2.5 ML VIAL INHALATION ×4 (01:18→20:00)
[2024-12-06] MEDS: dexmedeTOMIDine 400 MCG/100 ML 400 MCG/100 ML BAG 10 MCG IV CONT (01:30)
[2024-12-06] MEDS: PROPOFOL IV EMULSION 100 ML 17.82 MG IV CONT (03:38)
[2024-12-06 03:51] LABS: Hematocrit 43.6 % (42.0-52.0); Hemoglobin 12.7 g/dL (14.0-18.0); Mean Corpuscular HGB Conc 29.1 g/dl (32-36); Mean Corpuscular Hemoglobin 27.0 pg (26-34); Mean Corpuscular Volume 92.8 fl (80-100); Platelet Count Result 149 k/mm3 (150-375); Red Blood Count 4.70 M/mm3 (4.6-6.20); White Blood Count 10.1 K/mm3 (4.5-10.0)
[2024-12-06 04:07] LABS: Triglycerides 89 mg/dL (<150)
[2024-12-06 04:11] LABS: Alanine Aminotransferase 25 U/L (6-50); Albumin Level 3.0 g/dL (3.5-5.1); Alkaline Phosphatase 108 U/L (38-126); Aspartate Amino Transferase 31 U/L (17-59); Bilirubin,Total 1.3 mg/dL (0.2-1.3); Blood Urea Nitrogen 33 mg/dL (9-20); Calcium 8.4 mg/dL (8.4-10.2); Chloride 90 mmol/L (98-107); Estimated CRCL calculation 173 ml/min; Estimated Glomerular Filt Rate > 60; Glucose 159 mg/dL (65-110); Magnesium 1.8 mg/dL (1.6-2.3); Potassium 4.1 mmol/L (3.4-5.0); Sodium 134 mmol/L (137-145); Total Protein 6.4 g/dL (6.3-8.2)
[2024-12-06 04:47] LABS: Anion Gap 5 mmol/L (4-12); Carbon Dioxide 39 mmol/L (22-30)
[2024-12-06 05:20] LABS: Alveolar/Arterial O2 Gradient 145.8 mmHg; Carboxyhemoglobin 1.5 % THb (0-2.0); Fractional Inspired Oxygen 40 %; HCO3 ABG 37.3 mEq/l (22.0-26.0); Methemoglobin ABG 0.0 %THb (0-1.5); Oxygen Content ABG 17.8 %vol (16.0-22.0); Oxygen Saturation ABG 95.3 % (95.0-100.0); PCO2 ABG 55.9 mmHg (35.0-45.0); PO2 ABG 75.1 mmHg (80.0-100.0); PO2 FiO2 Ratio Arterial Blood 1.88 %; Reduced Hemoglobin 4.7 %THb (0-5.0)
[2024-12-06 05:23] LABS: Arterial Blood Gas Ventilator rate 20 /MIN; Site Drawn ARTLINE
[2024-12-06 05:24] LABS: Arterial Blood Gas Tidal Volume 450 ml
[2024-12-06] MEDS: CENTRAL LINE FLUSH 10 ML IV PUSH ×3 (06:14→22:46)
[2024-12-06] MEDS: APIXABAN 5 MG TABLET PO ×2 (08:42→22:46)
[2024-12-06] MEDS: PANTOPRAZOLE SODIUM IV 40 MG VIAL IV PUSH (08:42)
[2024-12-06] MEDS: MINERAL OIL/WHITE PETROLATUM OINTMENT 1 APPLIC EACH EYE ×2 (08:42→22:46)
[2024-12-06] MEDS: PROPOFOL IV EMULSION 100 ML 11.88 MG IV CONT (08:53)
[2024-12-06] MEDS: INSULIN GLARGINE (*BKC) 100 UNITS/ML 25 UNITS SUB-Q (08:53)
--- NOTE | 2024-12-06 09:47 | WPDINTPN ---
Progress Note: A&P Assessment and Plan (1) Acute on chronic respiratory failure with hypoxia and hypercapnia: Code(s): J96.21 - Acute and chronic respiratory failure with hypoxia; J96.22 - Acute and chronic respiratory failure with hypercapnia Status: Acute Assessment and Plan: Acute on chronic respiratory failure secondary to multifactorial combination of COPD, obesity hypoventilation syndrome, left-sided pneumonia, pulmonary edema, atelectasis 11/26: Patient was admitted for increasing/worsening dyspnea 1 day prior to admission. Patient was in the intermediate Unit, evaluated by pulmonology, has been noncompliant with his AVAPS/BiPAP. 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 Also was possibly delirious as he pulled out his IV lines and BiPAP mask. -was on propofol, dropped his blood pressures in the 40s systolic, propofol infusion were discontinued currently sedated with Versed and fentanyl Chest x-ray shows a consolidation versus atelectasis versus combination of 2 on the left side. Patient is a too big for CT scanner hence unable to evaluate 11/29 bronchoscopy was done. Minimal amount of secretions were seen. Chest x-ray reviewed this morning and shows improvement on the left side Continue to elevate left side with pillows more than right Continue bronchodilators, Mucomyst nebs -status post Pulmozyme nebs -Continue chest PT has been ordered -status post Solu-Medrol -11/29: Sputum culture is growing Pseudomonas. Nasal MRSA screen was positive. Patient was on vancomycin earlier, which was discontinued -currently on levofloxacin Currently on CMV mode of ventilation, 40% FiO2 and peep of 10. -will place patient on ASV mode, continue on decrease sedation -will diurese again today Sedated with propofol and fentanyl infusion, I have asked the bedside RN to continue decrease the fentanyl, patient may be placed on Precedex infusion Not ready for weaning at this point but getting close will try to get down to 40% and 8 of PEEP before doing weaning trial. (2) COPD exacerbation: Code(s): J44.1 - Chronic obstructive pulmonary disease with (acute) exacerbation Status: Acute Assessment and Plan: See above (3) Pneumonia: Code(s): J18.9 - Pneumonia, unspecified organism Status: Acute Assessment and Plan: See above (4) Hypotension: Code(s): I95.9 - Hypotension, unspecified Status: Acute Assessment and Plan: Patient dropped his blood pressure is likely related to propofol infuse and positive-pressure ventilation -required phenylephrine push and Levophed infusion Now off pressors (5) Atrial fibrillation with RVR: Code(s): I48.91 - Unspecified atrial fibrillation Status: Acute Assessment and Plan: Patient has a history of AFib with RVR, currently rate controlled but remains in atrial fibrillation -continue Eliquis (6) Type 2 diabetes mellitus: Qualifiers: Diabetes mellitus buttermaker continuous churn insulin use: without buttermaker continuous churn use Diabetes mellitus complication status: without complication Qualified Code(s): E11.9 - Type 2 diabetes mellitus without complications Code(s): E11.9 - Type 2 diabetes mellitus without complications Status: Acute Assessment and Plan: Accu-Cheks and sliding scale insulin Continue Lantus dose (7) Essential hypertension: Code(s): I10 - Essential (primary) hypertension Status: Acute Assessment and Plan: Hold antihypertensive medications at this time (8) KATIE (obstructive sleep apnea): Code(s): G47.33 - Obstructive sleep apnea (adult) (pediatric) Status: Acute Assessment and Plan: Non compliant with his CPAP/AVAPS -currently intubated (9) Edema of abdominal wall: Code(s): R60.0 - Localized edema Status: Acute Assessment and Plan: Edema of the abdominal wall on the left side likely related to dependent edema as patient fevers to lay on that side Lasix will be continued (10) Electrolyte abnormality: Code(s): E87.8 - Other disorders of electrolyte and fluid balance, not elsewhere classified Status: Acute Assessment and Plan: Potassium improved after placement -replace magnesium Plan DVT prophylaxis: Apixaban Stress ulcer prophylaxis: Protonix Nutrition: Continue tube feeding at goal rate, patient is on MiraLax, Dulcolax suppository p.r.n., will add senna S Code Status: Full code Critical Care Time Spent: 33 minutes Will update family Due to a high probability of clinically significant, life threatening deterioration, the patient required my highest level of preparedness to intervene emergently and I personally spent this critical care time directly and personally managing the patient. This critical care time included obtaining a history; examining the patient; pulse oximetry; ordering and review of studies; arranging urgent treatment with development of a management plan; evaluation of patient's response to treatment; frequent reassessment; and discussions with other providers. It was exclusive of separately billable procedures and treating other patients and teaching time. Please see Assessment and Plan section and the rest of the note for further information on patient assessment and treatment This dictation may have been done utilizing a voice recognition system. Attempts have been made to correct errors. However, there may be uncorrected grammatical, spelling, and recognitions errors present. Subjective Date/time seen: 12/06/24 09:47 Interval history: Reason for consult: Acute hypoxic and hypercapnic respiratory failure since, hypotension/shock, pneumonia, COPD exacerbation, noncompliance 11/28 intubation 11/29 bronchoscopy 12/06/2024: Patient seen and examined the ICU, remains intubated on CMV mode of ventilation, peep of 10, 40% FiO2. Sedated with fentanyl and propofol infusion. Patient opens his eyes, follows simple commands in lower extremities. Afebrile, hemodynamically stable, good urine output in response to diuresis. Patient is negative 3700 mL in fluid balance. Tolerating tube feeds, last bowel movement documented 11/28/2024. Review of Systems Review of Systems: ROS unobtainable: Yes unobtainable due to endotracheal tube, unobtainable due to medical condition and unobtainable due to mental status Exam Narrative: General: Significantly obese gentleman, currently intubated, sedated in no acute distress HEENT:? Pupils equal and reactive, sclera is clear, ETT in place Neck:? Thick and short neck Respiratory:? Decreased air entry bilaterally, no wheezing. Breath sounds are improved on the left side but still less than as compared to right side Chest: Left breast is larger than the right, induration, erythema and warmth has improved Cardiac:? Distant heart sounds, irregularly irregular Abdomen:? Morbidly obese, indurated and firm on the left side with pitting edema, right side is softer with less edema, according the daughter patient prefers to lay on the left side, causing possible dependent edema and swelling Extremities:? Edema is improved in bilateral lower extremities, palpable pedal pulses Neuro:? Patient is intubated, sedated, opens his eyes, follows simple commands in lower extremities, Skin:? Bruising noted on upper extremities, torso, chronic venous stasis changes on bilateral lower extremity Psych:? Unable to assess at this time Objective Data Vital Signs Vital Signs: Vital Signs - 24 hr 12/05/24 10:00 12/05/24 10:00 12/05/24 10:00 Temperature 100.2 F H Pulse Rate 99 99 99 Respiratory Rate 20 20 Blood Pressure 145/91 H Pulse Oximetry 96 Oxygen Delivery Fraction of Inspired Oxygen 12/05/24 10:00 12/05/24 11:13 12/05/24 12:00 Temperature Pulse Rate 99 91 Respiratory Rate 20 Blood Pressure Pulse Oximetry 96 Oxygen Delivery Mechanical Ventilation Fraction of Inspired Oxygen 45 45 12/05/24 12:00 12/05/24 12:00 12/05/24 12:00 Temperature 99.8 F H Pulse Rate 104 H 100 Respiratory Rate 20 Blood Pressure 139/89 Pulse Oximetry 97 Oxygen Delivery Mechanical Ventilation Fraction of Inspired Oxygen 45 12/05/24 12:00 12/05/24 12:47 12/05/24 12:47 Temperature Pulse Rate 104 H 114 H 114 H Respiratory Rate 20 21 H 21 H Blood Pressure Pulse Oximetry Oxygen Delivery Fraction of Inspired Oxygen 12/05/24 14:00 12/05/24 14:00 12/05/24 14:00 Temperature 100.0 F H Pulse Rate 98 98 105 H Respiratory Rate 21 H Blood Pressure 136/83 Pulse Oximetry 94 Oxygen Delivery Fraction of Inspired Oxygen 12/05/24 14:01 12/05/24 14:31 12/05/24 14:34 Temperature Pulse Rate 101 H 94 104 H Respiratory Rate 20 21 H Blood Pressure Pulse Oximetry 96 Oxygen Delivery Mechanical Ventilation Fraction of Inspired Oxygen 40 12/05/24 14:45 12/05/24 16:00 12/05/24 16:00 Temperature Pulse Rate 102 H 110 H Respiratory Rate 25 H Blood Pressure Pulse Oximetry Oxygen Delivery Fraction of Inspired Oxygen 45 12/05/24 16:00 12/05/24 16:00 12/05/24 16:00 Temperature 100.1 F H Pulse Rate 111 H 111 H Respiratory Rate 25 H 25 H Blood Pressure 150/76 H Pulse Oximetry 95 Oxygen Delivery Mechanical Ventilation Fraction of Inspired Oxygen 45 12/05/24 16:37 12/05/24 17:00 12/05/24 17:20 Temperature 100.0 F H Pulse Rate 106 H 111 H 102 H Respiratory Rate 22 H 23 H Blood Pressure 158/79 H Pulse Oximetry 94 95 Oxygen Delivery Mechanical Ventilation Fraction of Inspired Oxygen 40 12/05/24 18:00 12/05/24 18:00 12/05/24 18:00 Temperature 99.9 F H Pulse Rate 99 99 99 Respiratory Rate 21 H 21 H Blood Pressure 137/71 137/71 Pulse Oximetry 93 93 Oxygen Delivery Fraction of Inspired Oxygen 12/05/24 18:00 12/05/24 18:00 12/05/24 19:00 Temperature 99.9 F H Pulse Rate 99 94 91 Respiratory Rate 21 H 23 H 20 Blood Pressure 99/56 L Pulse Oximetry 95 Oxygen Delivery Fraction of Inspired Oxygen 12/05/24 20:00 12/05/24 20:00 12/05/24 20:00 Temperature 99.8 F H Pulse Rate 91 91 91 Respiratory Rate 20 20 20 Blood Pressure 111/61 Pulse Oximetry 96 Oxygen Delivery Fraction of Inspired Oxygen 12/05/24 20:00 12/05/24 20:00 12/05/24 20:00 Temperature Pulse Rate 85 Respiratory Rate Blood Pressure Pulse Oximetry 93 Oxygen Delivery Mechanical Ventilation Fraction of Inspired Oxygen 40 40 12/05/24 20:04 12/05/24 20:11 12/05/24 21:00 Temperature 99.7 F H Pulse Rate 82 82 96 Respiratory Rate 20 20 Blood Pressure 103/57 L Pulse Oximetry 96 93 Oxygen Delivery Mechanical Ventilation Fraction of Inspired Oxygen 40 12/05/24 22:00 12/05/24 22:00 12/05/24 22:00 Temperature Pulse Rate 92 92 92 Respiratory Rate 20 20 Blood Pressure Pulse Oximetry Oxygen Delivery Fraction of Inspired Oxygen 12/05/24 22:00 12/05/24 22:25 12/05/24 23:00 Temperature 99.4 F 99.4 F Pulse Rate 92 104 H 97 Respiratory Rate 20 20 Blood Pressure 111/57 L 108/67 Pulse Oximetry 92 94 93 Oxygen Delivery Mechanical Ventilation Fraction of Inspired Oxygen 40 12/06/24 00:00 12/06/24 00:00 12/06/24 00:00 Temperature 99.4 F Pulse Rate 93 93 93 Respiratory Rate 20 20 20 Blood Pressure 122/76 Pulse Oximetry 100 Oxygen Delivery Fraction of Inspired Oxygen 12/06/24 00:00 12/06/24 00:00 12/06/24 00:00 Temperature Pulse Rate 92 Respiratory Rate Blood Pressure Pulse Oximetry 93 Oxygen Delivery Mechanical Ventilation Fraction of Inspired Oxygen 40 40 12/06/24 01:00 12/06/24 01:19 12/06/24 01:30 Temperature 99.3 F Pulse Rate 97 99 107 H Respiratory Rate 20 20 24 H Blood Pressure 148/92 H Pulse Oximetry 98 Oxygen Delivery Fraction of Inspired Oxygen 12/06/24 01:33 12/06/24 01:40 12/06/24 02:00 Temperature 99.6 F Pulse Rate 99 115 H 94 Respiratory Rate 20 20 Blood Pressure 129/67 Pulse Oximetry 96 92 Oxygen Delivery Mechanical Ventilation Fraction of Inspired Oxygen 40 12/06/24 02:00 12/06/24 02:00 12/06/24 02:00 Temperature Pulse Rate 94 94 94 Respiratory Rate 20 20 Blood Pressure Pulse Oximetry Oxygen Delivery Fraction of Inspired Oxygen 12/06/24 03:00 12/06/24 03:38 12/06/24 03:38 Temperature 99.3 F Pulse Rate 88 88 88 Respiratory Rate 20 20 20 Blood Pressure 94/63 L Pulse Oximetry 95 Oxygen Delivery Fraction of Inspired Oxygen 12/06/24 04:00 12/06/24 04:00 12/06/24 04:00 Temperature Pulse Rate 88 88 89 Respiratory Rate 20 20 Blood Pressure Pulse Oximetry Oxygen Delivery Fraction of Inspired Oxygen 12/06/24 04:00 12/06/24 04:00 12/06/24 04:00 Temperature 99.7 F H Pulse Rate 88 Respiratory Rate 20 Blood Pressure 100/66 Pulse Oximetry 95 93 Oxygen Delivery Mechanical Ventilation Fraction of Inspired Oxygen 40 40 12/06/24 05:00 12/06/24 05:28 12/06/24 06:00 Temperature 99.2 F Pulse Rate 84 88 89 Respiratory Rate 20 Blood Pressure 112/58 L Pulse Oximetry 95 96 Oxygen Delivery Mechanical Ventilation Fraction of Inspired Oxygen 40 12/06/24 06:00 12/06/24 06:00 12/06/24 06:00 Temperature 99.4 F Pulse Rate 89 89 89 Respiratory Rate 20 20 20 Blood Pressure 112/63 Pulse Oximetry 95 Oxygen Delivery Fraction of Inspired Oxygen 12/06/24 06:30 12/06/24 07:00 12/06/24 07:55 Temperature Pulse Rate 88 80 85 Respiratory Rate 20 21 H 20 Blood Pressure 116/64 Pulse Oximetry 95 Oxygen Delivery Fraction of Inspired Oxygen 12/06/24 07:56 12/06/24 08:00 12/06/24 08:00 Temperature Pulse Rate 89 Respiratory Rate Blood Pressure Pulse Oximetry 93 Oxygen Delivery Mechanical Ventilation Fraction of Inspired Oxygen 40 40 12/06/24 08:00 12/06/24 08:06 12/06/24 08:30 Temperature 99.3 F Pulse Rate 96 86 98 Respiratory Rate 21 H Blood Pressure 126/72 Pulse Oximetry 95 95 96 Oxygen Delivery Mechanical Ventilation Mechanical Ventilation Fraction of Inspired Oxygen 40 40 12/06/24 08:40 12/06/24 08:53 12/06/24 08:53 Temperature Pulse Rate 95 94 95 Respiratory Rate 17 16 17 Blood Pressure Pulse Oximetry Oxygen Delivery Fraction of Inspired Oxygen Intake/Output Intake/Output: Intake & Output 12/03/24 12/04/24 12/05/24 12/06/24 23:59 23:59 23:59 23:59 Intake Total 2779.1 2269.2 2068.7 1050.8 Output Total 6600 6360 5825 1600 Balance -3820.9 -4090.8 -3756.3 -549.2 Meds/Results Medications: Active Medications Generic Name Dose Route Start Last Admin Trade Name Freq PRN Reason Stop Dose Admin Acetaminophen 650 mg 11/26/24 14:25 12/04/24 23:50 Acetaminophen 325 Mg Tablet PO 650 mg Q6H PRN Administration Mild Pain (1-3) or Fever Acetylcysteine 200 mg 11/28/24 08:55 12/06/24 07:51 Acetylcysteine 20% Inhal Soln 800 Mg/4 Ml Vial INHALATION 200 mg Q6HRT EDMUNDO Administration Apixaban 5 mg 11/26/24 21:00 12/06/24 08:42 Apixaban 5 Mg Tablet PO 5 mg Q12HR EDMUNDO Administration Bisacodyl 5 mg 12/05/24 10:16 12/05/24 11:36 Bisacodyl 5 Mg Tablet Ec PO 5 mg QAM PRN Administration Constipation Dextrose 12.5 gm 11/26/24 16:15 Dextrose 50% 25 Gm/50 Ml Syringe IV PUSH PRN PRN Hypoglycemia Protocol Glucagon 1 mg 11/26/24 16:15 Glucagon For Inj 1 Mg Vial IM PRN PRN Hypoglycemia Protocol Glucose 15 gm 11/26/24 16:15 Glucose Oral Gel 15 Gm Of Glucse In 37.5 Gm Tube PO PRN PRN Hypoglycemia Protocol Dextrose 1,000 mls @ 100 mls/hr 11/26/24 16:15 Dextrose 5% 1,000 Ml IVPB PRN PRN Hypoglycemia Protocol Fentanyl Citrate 2,500 mcg in 250 mls @ 5 mls/hr 11/28/24 06:55 12/06/24 08:40 Fentanyl 2,500 Mcg/Ns 250 Ml IV CONT 50 mcg/hr .Q50H EDMUNDO 5 mls/hr Protocol Titration 50 MCG/HR Propofol 100 mls @ 11.88 mls/hr 12/05/24 16:35 12/06/24 08:53 Diprivan IV CONT 10 mcg/kg/min .Q8H26M EDMUNDO 11.88 mls/hr Protocol Administration 10 MCG/KG/MIN Insulin Aspart 3 - 6 units 11/28/24 06:50 12/06/24 06:13 Insulin Aspart (*Bkc) 100 Units/Ml SUB-Q Not Given Q6HR EDMUNDO Protocol Insulin Glargine 25 units 12/01/24 09:00 12/06/24 08:53 Insulin Glargine (*Bkc) 100 Units/Ml SUB-Q 25 units QAM EDMUNDO Administration Ipratropium [place] 0.5 mg 11/29/24 08:00 12/06/24 07:51 Ipratropium Br 0.02% Inh Soln 0.5 Mg/2.5 Ml Vial INHALATION 0.5 mg Q6HRT EDMUNDO Administration Levalbuterol HCl 1.25 mg 11/29/24 20:00 12/06/24 07:51 Levalbuterol Neb 1.25 Mg/3 Ml INHALATION 1.25 mg Q6HRT EDMUNDO Administration Levofloxacin 750 mg 12/05/24 11:10 12/06/24 08:42 Levofloxacin 750 Mg Tablet FEED TUBE 750 mg DAILY EDMUNDO Administration Multi-Ingred Cream/Lotion/Oil/Oint 1 applic 11/28/24 09:00 12/06/24 08:42 Mineral Oil/White Petrolatum Ointment EACH EYE 1 applic Q12HR EDMUNDO Administration Pantoprazole Sodium 40 mg 11/29/24 09:00 12/06/24 08:42 Pantoprazole Sodium Iv 40 Mg Vial IV PUSH 40 mg QAM EDMUNDO Administration Polyethylene Glycol 17 gm 12/05/24 10:20 12/06/24 08:42 Polyethylene Glycol 3350 17 Gm Powd.Pack PO 17 gm QAM EDMUNDO Administration Sertraline HCl 50 mg 11/27/24 09:00 11/28/24 12:06 Sertraline Hcl 50 Mg Tablet PO 50 mg On Hold: 11/29/24 08:16 DAILY EDMUNDO Administration Sodium Chloride 10 ml 11/28/24 14:00 12/06/24 06:14 Central Line Flush IV PUSH 10 ml Q8HR EDMUNDO Administration Sodium Chloride 20 ml 11/28/24 11:53 12/03/24 05:31 Central Line Flush IV PUSH 20 ml PRN PRN Administration after blood draws Radiology Results: ITS Impressions Chest X-Ray 12/06/24 08:17 Impression: CHF. Superimposed pneumonia is suspected. The findings are progressed slightly compared to the previous study Labs Labs: Laboratory Results - last 24 hr 12/05/24 12/05/24 12/05/24 11:41 16:54 17:23 WBC RBC Hgb Hct MCV MCH MCHC RDW Plt Count MPV Puncture Site ABG pH ABG pCO2 ABG pO2 ABG PO2/FiO2 Ratio ABG HCO3 ABG O2 Saturation ABG O2 Content ABG Base Excess A-a Gradient Oxyhemoglobin Carboxyhemoglobin Methemoglobin Reduced Hemoglobin Total Hemoglobin O2 Delivery Device O2 Liters/Min Minute Volume Vent Rate Vent Mode FiO2 Tidal Volume PEEP Peak Inspir Pressure Pressure Support Sodium Potassium Chloride Carbon Dioxide Anion Gap BUN Creatinine Estim Creat Clear Calc Estimated GFR Glucose POC Capillary Glucose 191 H 185 H Calcium Phosphorus Magnesium Total Bilirubin AST ALT Alkaline Phosphatase Total Protein Albumin Triglycerides 82 12/05/24 12/06/24 12/06/24 23:24 03:45 05:09 WBC 10.1 H RBC 4.70 Hgb 12.7 L Hct 43.6 MCV 92.8 MCH 27.0 MCHC 29.1 L RDW 16.5 H Plt Count 149 L MPV 10.1 Puncture Site Artline ABG pH 7.442 ABG pCO2 55.9 H ABG pO2 75.1 L ABG PO2/FiO2 Ratio 1.88 ABG HCO3 37.3 H ABG O2 Saturation 95.3 ABG O2 Content 17.8 ABG Base Excess 11.0 A-a Gradient 145.8 Oxyhemoglobin 93.8 Carboxyhemoglobin 1.5 Methemoglobin 0.0 Reduced Hemoglobin 4.7 Total Hemoglobin 13.5 O2 Delivery Device Ventilator O2 Liters/Min Not Reportable Minute Volume Not Reportable Vent Rate 20 Vent Mode Cmv FiO2 40 Tidal Volume 450 PEEP 10 Peak Inspir Pressure Not Reportable Pressure Support Not Reportable Sodium 134 L Potassium 4.1 Chloride 90 L Carbon Dioxide 39 H Anion Gap 5 BUN 33 H Creatinine 0.64 L Estim Creat Clear Calc 173 Estimated GFR > 60 Glucose 159 H POC Capillary Glucose 166 H Calcium 8.4 Phosphorus 3.4 Magnesium 1.8 Total Bilirubin 1.3 AST 31 ALT 25 Alkaline Phosphatase 108 Total Protein 6.4 Albumin 3.0 L Triglycerides 89 Quality VTE Prophylaxis VTE prophylaxis: pharmacologic ordered
[2024-12-06] MEDS: FUROSEMIDE INJ 40 MG/4 ML VIAL IV PUSH (10:45)
[2024-12-06] MEDS: MAGNESIUM SULF 2 GM/WATER 50ML 2 GM/50 ML BAG IVPB (10:45)
--- NOTE | 2024-12-06 10:54 | PCNFU ---
Nutrition Follow-Up Complete: Suboptimal Energy Intake as related to mechanical vent as evidenced by NPO. Goal: Meet estimated nutritional needs Patient will continue current goal. Pt current nutrition is Vital HP at 70 ml/hr. Last recorded weight is 200 kg down from 225 kg on admit. Bowel Motility: Last reported BM 11/28 Labs Reviewed: Glu 159,BUN 33, Cr 0.63, Alb 3.0, Na 134 Meds Noted:Lasix, Senokot, Miralax, Propofol 5 itvl=677 kcal, Fentanyl Skin: WNL Additional Notes: Patient remains on a mechanical vent. Tube feedings are being tolerated of Vital HP at 70 ml/hr with flush 30 ml q 4 hours. Total Nutrition: 1697 kcal/134 gm protein/1287 ml water. Meeting 96% kcal needs at 22 kcal/kg IBW and 92% protein needs at 1.8 gm/kg IBW. Agree with diet orders at this time. Will monitor weight, labs, skin, diet orders, meds every Thursday and Thursday.
[2024-12-06] MEDS: dexmedeTOMIDine 400 MCG/100 ML 400 MCG/100 ML BAG 40 MCG IV CONT (16:40)
[2024-12-06] MEDS: ACETAMINOPHEN 325 MG TABLET 650 MG PO (18:24)
[2024-12-06] MEDS: dexmedeTOMIDine 400 MCG/100 ML 400 MCG/100 ML BAG 35 MCG IV CONT ×3 (19:17→22:00)
[2024-12-06] MEDS: SENNA/DOCUSATE SODIUM TABLET 1 TAB PO (22:46)
[2024-12-07] VITALS (45 sets, daily range): BP systolic 89–159; BP diastolic 75–105; PULSE 50–94; RESP 14–25; TEMP 37.7–38.4; O2SAT 94–100
[2024-12-07] MEDS: dexmedeTOMIDine 400 MCG/100 ML 400 MCG/100 ML BAG 30 MCG IV CONT ×5 (02:00→10:46)
[2024-12-07] MEDS: INSULIN ASPART (*BKC) 100 UNITS/ML SUB-Q ×3 (02:11→12:18)
[2024-12-07] MEDS: ACETYLCYSTEINE 20% INHAL SOLN 800 MG/4 ML VIAL 200 MG INHALATION ×4 (02:15→20:39)
[2024-12-07] MEDS: IPRATROPIUM BR 0.02% INH SOLN 0.5 MG/2.5 ML VIAL INHALATION ×4 (02:15→20:39)
[2024-12-07] MEDS: ACETAMINOPHEN 325 MG TABLET 650 MG PO (04:00)
[2024-12-07 04:54] LABS: Hematocrit 45.8 % (42.0-52.0); Hemoglobin 13.7 g/dL (14.0-18.0); Immature Granulocyte Percent A 0.5 % (0-0.5); Lymphocytes Absolute Auto 1.33 K/mm3 (0.9-3.2); Mean Corpuscular HGB Conc 29.9 g/dl (32-36); Mean Corpuscular Hemoglobin 27.3 pg (26-34); Mean Corpuscular Volume 91.2 fl (80-100); Nucleated Red Blood Cells Absolute Auto 0.000 K/mm3 (0.0-0.012); Nucleated Red Blood Cells Perc 0.0 % (0.0-0.2); Platelet Count Result 166 k/mm3 (150-375); Red Blood Count 5.02 M/mm3 (4.6-6.20); White Blood Count 9.4 K/mm3 (4.5-10.0)
[2024-12-07 05:14] LABS: Alveolar/Arterial O2 Gradient 93.3 mmHg; Carboxyhemoglobin 1.3 % THb (0-2.0); Fractional Inspired Oxygen 30 %; HCO3 ABG 31.1 mEq/l (22.0-26.0); Methemoglobin ABG 0.0 %THb (0-1.5); Oxygen Content ABG 19.6 %vol (16.0-22.0); Oxygen Saturation ABG 95.1 % (95.0-100.0); PCO2 ABG 42.7 mmHg (35.0-45.0); PO2 ABG 70.4 mmHg (80.0-100.0); PO2 FiO2 Ratio Arterial Blood 2.35 %; Reduced Hemoglobin 5.1 %THb (0-5.0)
[2024-12-07 05:20] LABS: Arterial Blood Gas Ventilator rate 20 /MIN; Site Drawn ARTLINE
[2024-12-07 05:21] LABS: Arterial Blood Gas Tidal Volume 450 ml
[2024-12-07 05:22] LABS: Alanine Aminotransferase 25 U/L (6-50); Albumin Level 3.1 g/dL (3.5-5.1); Alkaline Phosphatase 137 U/L (38-126); Anion Gap 3 mmol/L (4-12); Aspartate Amino Transferase 36 U/L (17-59); Bilirubin,Total 1.1 mg/dL (0.2-1.3); Blood Urea Nitrogen 34 mg/dL (9-20); Calcium 8.5 mg/dL (8.4-10.2); Carbon Dioxide 37 mmol/L (22-30); Chloride 93 mmol/L (98-107); Estimated CRCL calculation 171 ml/min; Estimated Glomerular Filt Rate > 60; Glucose 224 mg/dL (65-110); Magnesium 2.4 mg/dL (1.6-2.3); Potassium 4.2 mmol/L (3.4-5.0); Sodium 133 mmol/L (137-145); Total Protein 6.9 g/dL (6.3-8.2)
[2024-12-07 05:41] LABS: Hypochromasia 1+
[2024-12-07 05:42] LABS: Schistocytes None Seen
[2024-12-07] MEDS: CENTRAL LINE FLUSH 10 ML IV PUSH ×2 (07:38→15:55)
[2024-12-07] MEDS: INSULIN GLARGINE (*BKC) 100 UNITS/ML 25 UNITS SUB-Q (08:34)
[2024-12-07] MEDS: PANTOPRAZOLE SODIUM IV 40 MG VIAL IV PUSH (08:34)
[2024-12-07] MEDS: APIXABAN 5 MG TABLET PO ×2 (08:34→21:07)
--- NOTE | 2024-12-07 09:18 | WPDINTPN ---
Progress Note: A&P Assessment and Plan (1) Acute on chronic respiratory failure with hypoxia and hypercapnia: Code(s): J96.21 - Acute and chronic respiratory failure with hypoxia; J96.22 - Acute and chronic respiratory failure with hypercapnia Status: Acute Assessment and Plan: Acute on chronic respiratory failure secondary to multifactorial combination of COPD, obesity hypoventilation syndrome, left-sided pneumonia, pulmonary edema, atelectasis 11/26: Patient was admitted for increasing/worsening dyspnea 1 day prior to admission. Patient was in the intermediate Unit, evaluated by pulmonology, has been noncompliant with his AVAPS/BiPAP. 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 Also was possibly delirious as he pulled out his IV lines and BiPAP mask. -was on propofol, dropped his blood pressures in the 40s systolic, propofol infusion were discontinued currently sedated with Versed and fentanyl On admission: Chest x-ray shows a consolidation versus atelectasis versus combination of 2 on the left side. Patient is a too big for CT scanner hence unable to evaluate 11/29 bronchoscopy was done. Minimal amount of secretions were seen. Continue to elevate left side with pillows more than right Continue bronchodilators, Mucomyst nebs -status post Pulmozyme nebs -Continue chest PT has been ordered -status post Solu-Medrol -11/29: Sputum culture is growing Pseudomonas. Nasal MRSA screen was positive. Patient was on vancomycin earlier, which was discontinued -currently on levofloxacin Currently on CMV mode of ventilation, 40% FiO2 and peep of 10. -12/06: Tolerated ASV for 4 hours, after which he was tachycardic, tachypneic and hypoxic and was placed back on CMV mode of ventilation -diuresing well, will repeat Lasix Patient off fentanyl infusion, currently only on Precedex, Will place patient on pressure support ventilation, and evaluate for extubation if possible (2) COPD exacerbation: Code(s): J44.1 - Chronic obstructive pulmonary disease with (acute) exacerbation Status: Acute Assessment and Plan: See above (3) Pneumonia: Code(s): J18.9 - Pneumonia, unspecified organism Status: Acute Assessment and Plan: See above (4) Hypotension: Code(s): I95.9 - Hypotension, unspecified Status: Acute Assessment and Plan: Patient dropped his blood pressure is likely related to propofol infuse and positive-pressure ventilation -required phenylephrine push and Levophed infusion Now off pressors (5) Atrial fibrillation with RVR: Code(s): I48.91 - Unspecified atrial fibrillation Status: Acute Assessment and Plan: Patient has a history of AFib with RVR, currently rate controlled but remains in atrial fibrillation -continue Eliquis (6) Type 2 diabetes mellitus: Qualifiers: Diabetes mellitus records management coordinator insulin use: without fpc use Diabetes mellitus complication status: without complication Qualified Code(s): E11.9 - Type 2 diabetes mellitus without complications Code(s): E11.9 - Type 2 diabetes mellitus without complications Status: Acute Assessment and Plan: Accu-Cheks and sliding scale insulin Continue Lantus dose (7) Essential hypertension: Code(s): I10 - Essential (primary) hypertension Status: Acute Assessment and Plan: Hold antihypertensive medications at this time (8) KATIE (obstructive sleep apnea): Code(s): G47.33 - Obstructive sleep apnea (adult) (pediatric) Status: Acute Assessment and Plan: Non compliant with his CPAP/AVAPS -currently intubated (9) Edema of abdominal wall: Code(s): R60.0 - Localized edema Status: Acute Assessment and Plan: Edema of the abdominal wall on the left side likely related to dependent edema as patient fevers to lay on that side Lasix will be continued (10) Electrolyte abnormality: Code(s): E87.8 - Other disorders of electrolyte and fluid balance, not elsewhere classified Status: Acute Assessment and Plan: Potassium improved after replacement Magnesium improved after replacement Plan DVT prophylaxis: Apixaban Stress ulcer prophylaxis: Protonix Nutrition: Continue tube feeding at goal rate, patient is on MiraLax, Dulcolax suppository p.r.n., will add senna S. Will give 1 dose of lactulose Code Status: Full code Critical Care Time Spent: 33 minutes 12/06: Updated family Due to a high probability of clinically significant, life threatening deterioration, the patient required my highest level of preparedness to intervene emergently and I personally spent this critical care time directly and personally managing the patient. This critical care time included obtaining a history; examining the patient; pulse oximetry; ordering and review of studies; arranging urgent treatment with development of a management plan; evaluation of patient's response to treatment; frequent reassessment; and discussions with other providers. It was exclusive of separately billable procedures and treating other patients and teaching time. Please see Assessment and Plan section and the rest of the note for further information on patient assessment and treatment This dictation may have been done utilizing a voice recognition system. Attempts have been made to correct errors. However, there may be uncorrected grammatical, spelling, and recognitions errors present. Subjective Date/time seen: 12/07/24 09:18 Interval history: Reason for consult: Acute hypoxic and hypercapnic respiratory failure since, hypotension/shock, pneumonia, COPD exacerbation, noncompliance 11/28 intubation 11/29 bronchoscopy 12/07/2024: Patient seen and examined the ICU, remains intubated on CMV mode of ventilation, peep of 10, 30% FiO2. On Precedex infusion. Patient did tolerate ASV mode of ventilation roughly 4 hours yesterday, after which she was tachycardic, tachypneic, hypoxic, so was placed back on CMV mode. Patient more awake, eyes are open,, follows simple commands in lower extremities. Moves all extremities. Afebrile, hemodynamically stable, good urine output in response to diuresis. Patient is negative 1500 mL in fluid balance. Tolerating tube feeds, last bowel movement documented 11/28/2024. Review of Systems Review of Systems: ROS unobtainable: Yes unobtainable due to endotracheal tube, unobtainable due to medical condition and unobtainable due to mental status Exam Narrative: General: Significantly obese gentleman, currently intubated, sedated in no acute distress HEENT:? Pupils equal and reactive, sclera is clear, ETT in place Neck:? Thick and short neck Respiratory:? Decreased air entry bilaterally, no wheezing. Breath sounds are improved on the left side but still less than as compared to right side Chest: Left breast is larger than the right, induration, erythema and warmth has improved Cardiac:? Distant heart sounds, irregularly irregular Abdomen:? Morbidly obese, indurated and firm on the left side with pitting edema, right side is softer with less edema, according the daughter patient prefers to lay on the left side, causing possible dependent edema and swelling Extremities:? Edema is improving in bilateral lower extremities, palpable pedal pulses Neuro:? Patient is intubated, on Precedex infusion, eyes are open, follows simple commands in lower extremities, moves all extremities spontaneously, acknowledges examiner in the room, tracking Skin:? Bruising noted on upper extremities, torso, chronic venous stasis changes on bilateral lower extremity Psych:? Unable to assess at this time Objective Data Vital Signs Vital Signs: Vital Signs - 24 hr 12/06/24 10:00 12/06/24 10:00 12/06/24 10:46 Temperature 99.7 F H Pulse Rate 108 H 104 H 104 H Respiratory Rate 20 20 Blood Pressure 115/59 L Pulse Oximetry 98 Oxygen Delivery Fraction of Inspired Oxygen 12/06/24 10:46 12/06/24 10:52 12/06/24 11:00 Temperature Pulse Rate 93 102 H 104 H Respiratory Rate 15 22 H Blood Pressure 113/89 Pulse Oximetry 97 100 Oxygen Delivery Mechanical Ventilation Fraction of Inspired Oxygen 35 12/06/24 12:00 12/06/24 12:00 12/06/24 12:00 Temperature Pulse Rate 115 H Respiratory Rate Blood Pressure Pulse Oximetry 93 Oxygen Delivery Mechanical Ventilation Fraction of Inspired Oxygen 40 40 12/06/24 12:00 12/06/24 12:30 12/06/24 12:30 Temperature 99.9 F H Pulse Rate 115 H 102 H 109 H Respiratory Rate 21 H 22 H Blood Pressure 127/89 Pulse Oximetry 95 95 Oxygen Delivery Mechanical Ventilation Fraction of Inspired Oxygen 35 12/06/24 12:30 12/06/24 13:00 12/06/24 13:28 Temperature Pulse Rate 109 H 111 H 102 H Respiratory Rate 22 H 23 H 20 Blood Pressure 154/87 H Pulse Oximetry 95 Oxygen Delivery Fraction of Inspired Oxygen 12/06/24 13:43 12/06/24 14:00 12/06/24 14:00 Temperature Pulse Rate 106 H 90 112 H Respiratory Rate 20 24 H Blood Pressure 150/95 H Pulse Oximetry 95 Oxygen Delivery Fraction of Inspired Oxygen 12/06/24 14:15 12/06/24 15:00 12/06/24 15:00 Temperature 100.2 F H Pulse Rate 104 H 105 H 105 H Respiratory Rate 24 H 23 H 23 H Blood Pressure 151/90 H Pulse Oximetry 96 Oxygen Delivery Fraction of Inspired Oxygen 12/06/24 16:00 12/06/24 16:00 12/06/24 16:00 Temperature 100.4 F H Pulse Rate 94 Respiratory Rate 20 Blood Pressure 126/74 Pulse Oximetry 95 93 Oxygen Delivery Mechanical Ventilation Fraction of Inspired Oxygen 40 40 12/06/24 16:12 12/06/24 16:40 12/06/24 17:37 Temperature Pulse Rate 79 68 66 Respiratory Rate 20 20 Blood Pressure Pulse Oximetry 96 Oxygen Delivery Mechanical Ventilation Fraction of Inspired Oxygen 35 12/06/24 18:16 12/06/24 18:24 12/06/24 19:17 Temperature 100.6 F H Pulse Rate 67 61 Respiratory Rate 20 19 Blood Pressure Pulse Oximetry Oxygen Delivery Fraction of Inspired Oxygen 12/06/24 19:17 12/06/24 20:00 12/06/24 20:00 Temperature Pulse Rate 61 55 L 65 Respiratory Rate 19 Blood Pressure Pulse Oximetry 97 Oxygen Delivery Mechanical Ventilation Fraction of Inspired Oxygen 35 12/06/24 20:00 12/06/24 20:00 12/06/24 20:00 Temperature 100.2 F H Pulse Rate 65 61 Respiratory Rate 18 20 Blood Pressure 99/78 L Pulse Oximetry 96 96 Oxygen Delivery Mechanical Ventilation Fraction of Inspired Oxygen 35 35 12/06/24 20:00 12/06/24 20:00 12/06/24 20:04 Temperature Pulse Rate 6 L 62 55 L Respiratory Rate 20 20 20 Blood Pressure Pulse Oximetry Oxygen Delivery Fraction of Inspired Oxygen 12/06/24 20:25 12/06/24 21:00 12/06/24 22:00 Temperature 100.4 F H Pulse Rate 61 61 65 Respiratory Rate 20 24 H 22 H Blood Pressure 98/78 L Pulse Oximetry 96 Oxygen Delivery Fraction of Inspired Oxygen 12/06/24 22:00 12/06/24 22:00 12/06/24 23:00 Temperature 100.3 F H Pulse Rate 65 65 65 Respiratory Rate 22 H 24 H Blood Pressure 101/88 Pulse Oximetry 97 Oxygen Delivery Fraction of Inspired Oxygen 12/06/24 23:10 12/07/24 00:00 12/07/24 00:00 Temperature Pulse Rate 67 67 63 Respiratory Rate 24 H Blood Pressure Pulse Oximetry 97 97 Oxygen Delivery Mechanical Ventilation Mechanical Ventilation Fraction of Inspired Oxygen 35 35 12/07/24 00:00 12/07/24 00:00 12/07/24 00:00 Temperature 100.2 F H Pulse Rate 60 62 Respiratory Rate 23 H 22 H Blood Pressure 102/83 Pulse Oximetry 97 Oxygen Delivery Fraction of Inspired Oxygen 35 12/07/24 01:00 12/07/24 02:00 12/07/24 02:00 Temperature 100.3 F H 100.5 F H Pulse Rate 68 65 60 Respiratory Rate 23 H 23 H Blood Pressure 89/76 L 91/75 L Pulse Oximetry 96 95 Oxygen Delivery Fraction of Inspired Oxygen 12/07/24 02:00 12/07/24 02:15 12/07/24 02:17 Temperature Pulse Rate 62 66 66 Respiratory Rate 22 H 20 Blood Pressure Pulse Oximetry 95 Oxygen Delivery Mechanical Ventilation Fraction of Inspired Oxygen 30 12/07/24 02:35 12/07/24 03:00 12/07/24 04:00 Temperature 100.6 F H Pulse Rate 69 63 68 Respiratory Rate 20 25 H 22 H Blood Pressure 98/84 L Pulse Oximetry 95 Oxygen Delivery Fraction of Inspired Oxygen 12/07/24 04:00 12/07/24 04:00 12/07/24 04:00 Temperature Pulse Rate 75 68 Respiratory Rate 22 H Blood Pressure Pulse Oximetry 97 Oxygen Delivery Mechanical Ventilation Fraction of Inspired Oxygen 30 30 12/07/24 04:00 12/07/24 04:00 12/07/24 04:18 Temperature 100.6 F H 100.4 F H Pulse Rate 68 65 Respiratory Rate 22 H 22 H Blood Pressure 103/93 H Pulse Oximetry 97 Oxygen Delivery Fraction of Inspired Oxygen 12/07/24 04:18 12/07/24 05:08 12/07/24 06:00 Temperature 100.7 F H Pulse Rate 65 75 94 Respiratory Rate 22 H 23 H Blood Pressure 94/87 L Pulse Oximetry 97 94 Oxygen Delivery Mechanical Ventilation Fraction of Inspired Oxygen 30 12/07/24 06:00 12/07/24 06:00 12/07/24 06:00 Temperature Pulse Rate 68 68 68 Respiratory Rate 23 H 23 H Blood Pressure Pulse Oximetry Oxygen Delivery Fraction of Inspired Oxygen 12/07/24 07:00 12/07/24 07:00 12/07/24 07:41 Temperature 100.8 F H 100.9 F H Pulse Rate 67 63 Respiratory Rate 25 H 22 H Blood Pressure 138/88 Pulse Oximetry 97 Oxygen Delivery Fraction of Inspired Oxygen 12/07/24 07:41 12/07/24 08:39 Temperature Pulse Rate 63 64 Respiratory Rate 22 H Blood Pressure Pulse Oximetry 95 Oxygen Delivery Mechanical Ventilation Fraction of Inspired Oxygen 30 Intake/Output Intake/Output: Intake & Output 12/04/24 12/05/24 12/06/24 09/24/25 23:59 23:59 23:59 23:59 Intake Total 2269.2 2068.7 2333.0 1187.5 Output Total 6360 5837 4658 905 Balance -4090.8 -3756.3 -2322.0 282.5 Meds/Results Medications: Active Medications Generic Name Dose Route Start Last Admin Trade Name Freq PRN Reason Stop Dose Admin Acetaminophen 650 mg 11/26/24 14:25 12/07/24 04:00 Acetaminophen 325 Mg Tablet PO 650 mg Q6H PRN Administration Mild Pain (1-3) or Fever Acetylcysteine 200 mg 11/28/24 08:55 12/07/24 08:22 Acetylcysteine 20% Inhal Soln 800 Mg/4 Ml Vial INHALATION 200 mg Q6HRT EDMUNDO Administration Apixaban 5 mg 11/26/24 21:00 12/07/24 08:34 Apixaban 5 Mg Tablet PO 5 mg Q12HR EDMUNDO Administration Bisacodyl 5 mg 12/05/24 10:16 12/05/24 11:36 Bisacodyl 5 Mg Tablet Ec PO 5 mg QAM PRN Administration Constipation Dextrose 12.5 gm 11/26/24 16:15 Dextrose 50% 25 Gm/50 Ml Syringe IV PUSH PRN PRN Hypoglycemia Protocol Glucagon 1 mg 11/26/24 16:15 Glucagon For Inj 1 Mg Vial IM PRN PRN Hypoglycemia Protocol Glucose 15 gm 11/26/24 16:15 Glucose Oral Gel 15 Gm Of Glucse In 37.5 Gm Tube PO PRN PRN Hypoglycemia Protocol Dextrose 1,000 mls @ 100 mls/hr 11/26/24 16:15 Dextrose 5% 1,000 Ml IVPB PRN PRN Hypoglycemia Protocol Dexmedetomidine HCl 400 mcg in 100 mls @ 30 mls/hr 12/06/24 12:25 12/07/24 07:41 Precedex 400 Mcg/100 Ml IV CONT 0.6 mcg/kg/hr .Q3H20M EDMUNDO 30 mls/hr Protocol Administration 0.6 MCG/KG/HR Insulin Aspart 3 - 6 units 11/28/24 06:50 12/07/24 07:23 Insulin Aspart (*Bkc) 100 Units/Ml SUB-Q 3 units Q6HR EDMUNDO Administration Protocol Insulin Glargine 25 units 12/01/24 09:00 12/07/24 08:34 Insulin Glargine (*Bkc) 100 Units/Ml SUB-Q 25 units QAM EDMUNDO Administration Ipratropium Bandera 0.5 mg 11/29/24 08:00 12/07/24 08:22 Ipratropium Br 0.02% Inh Soln 0.5 Mg/2.5 Ml Vial INHALATION 0.5 mg Q6HRT EDMUNDO Administration Levalbuterol HCl 1.25 mg 11/29/24 20:00 12/07/24 08:22 Levalbuterol Neb 1.25 Mg/3 Ml INHALATION 1.25 mg Q6HRT EDMUNDO Administration Levofloxacin 750 mg 12/05/24 11:10 12/07/24 08:34 Levofloxacin 750 Mg Tablet FEED TUBE 750 mg DAILY EDMUNDO Administration Multi-Ingred Cream/Lotion/Oil/Oint 1 applic 11/28/24 09:00 12/07/24 08:34 Mineral Oil/White Petrolatum Ointment EACH EYE Not Given Q12HR EDMUNDO Pantoprazole Sodium 40 mg 11/29/24 09:00 12/07/24 08:34 Pantoprazole Sodium Iv 40 Mg Vial IV PUSH 40 mg QAM EDMUNDO Administration Polyethylene Glycol 17 gm 12/05/24 10:20 12/07/24 08:35 Polyethylene Glycol 3350 17 Gm Powd.Pack PO 17 gm QAM EDMUNDO Administration Senna/Docusate Sodium 1 tab 12/06/24 21:00 12/06/24 22:46 Senna/Docusate Sodium Tablet PO 1 tab HS EDMUNDO Administration Sertraline HCl 50 mg 11/27/24 09:00 11/28/24 12:06 Sertraline Hcl 50 Mg Tablet PO 50 mg On Hold: 11/29/24 08:16 DAILY EDMUNDO Administration Sodium Chloride 10 ml 11/28/24 14:00 12/07/24 07:38 Central Line Flush IV PUSH 10 ml Q8HR EDMUNDO Administration Sodium Chloride 20 ml 11/28/24 11:53 12/03/24 05:31 Central Line Flush IV PUSH 20 ml PRN PRN Administration after blood draws Radiology Results: ITS Impressions Chest X-Ray 12/07/24 07:47 IMPRESSION: 1. Persistent opacities in the left mid to lower lung zone with retrocardiac consolidation which could represent atelectasis and/or pneumonia possibly with superimposed small left pleural effusion. 2. Decreasing opacities in the right lower lung zone which could represent improving atelectasis or pneumonia. 3. Borderline heart size. 4. Endotracheal tube tip 6.0 cm above the evelyn. Consider advancement by 3-4 cm. Labs Labs: Laboratory Results - last 24 hr 12/06/24 12/07/24 12/07/24 11:53 02:07 02:09 WBC RBC Hgb Hct MCV MCH MCHC RDW Plt Count MPV Immature Gran % (Auto) Neut % (Auto) Lymph % (Auto) [place] % (Auto) Eos % (Auto) Baso % (Auto) Lymph # (Auto) [place] # (Auto) Eos # (Auto) Baso # (Auto) Abs Immat Gran (auto) Absolute Neuts (auto) Absolute Nucleated RBC Band Neutrophils % Nucleated RBC % Platelet Estimate Hypochromasia Schistocytes Puncture Site ABG pH ABG pCO2 ABG pO2 ABG PO2/FiO2 Ratio ABG HCO3 ABG O2 Saturation ABG O2 Content ABG Base Excess A-a Gradient Oxyhemoglobin Carboxyhemoglobin Methemoglobin Reduced Hemoglobin Total Hemoglobin O2 Delivery Device O2 Liters/Min Minute Volume Vent Rate Vent Mode FiO2 Tidal Volume PEEP Peak Inspir Pressure Pressure Support Sodium Potassium Chloride Carbon Dioxide Anion Gap BUN Creatinine Estim Creat Clear Calc Estimated GFR Glucose POC Capillary Glucose 189 H 219 H 219 H Calcium Phosphorus Magnesium Total Bilirubin AST ALT Alkaline Phosphatase Total Protein Albumin 12/07/24 12/07/24 04:46 05:12 WBC 9.4 RBC 5.02 Hgb 13.7 L Hct 45.8 MCV 91.2 MCH 27.3 MCHC 29.9 L RDW 16.4 H Plt Count 166 MPV 10.4 Immature Gran % (Auto) 0.5 Neut % (Auto) 72.9 Lymph % (Auto) 14.1 L [place] % (Auto) 10.7 H Eos % (Auto) 1.5 Baso % (Auto) 0.3 Lymph # (Auto) 1.33 [place] # (Auto) 1.0 H Eos # (Auto) 0.1 Baso # (Auto) 0.0 Abs Immat Gran (auto) 0.05 H Absolute Neuts (auto) 6.9 H Absolute Nucleated RBC 0.000 Band Neutrophils % Not Reportable Nucleated RBC % 0.0 Platelet Estimate Adequate Hypochromasia 1+ Schistocytes None seen Puncture Site Artline ABG pH 7.480 H ABG pCO2 42.7 ABG pO2 70.4 L ABG PO2/FiO2 Ratio 2.35 ABG HCO3 31.1 H ABG O2 Saturation 95.1 ABG O2 Content 19.6 ABG Base Excess 6.8 A-a Gradient 93.3 Oxyhemoglobin 93.6 Carboxyhemoglobin 1.3 Methemoglobin 0.0 Reduced Hemoglobin 5.1 H Total Hemoglobin 14.9 O2 Delivery Device Ventilator O2 Liters/Min Not Reportable Minute Volume Not Reportable Vent Rate 20 Vent Mode Cmv FiO2 30 Tidal Volume 450 PEEP 10 Peak Inspir Pressure Not Reportable Pressure Support Not Reportable Sodium 133 L Potassium 4.2 Chloride 93 L Carbon Dioxide 37 H Anion Gap 3 L BUN 34 H Creatinine 0.65 L Estim Creat Clear Calc 171 Estimated GFR > 60 Glucose 224 H POC Capillary Glucose Calcium 8.5 Phosphorus 3.4 Magnesium 2.4 H Total Bilirubin 1.1 AST 36 ALT 25 Alkaline Phosphatase 137 H Total Protein 6.9 Albumin 3.1 L Quality VTE Prophylaxis VTE prophylaxis: pharmacologic ordered
[2024-12-07] MEDS: FUROSEMIDE INJ 40 MG/4 ML VIAL IV PUSH (10:39)
[2024-12-07] MEDS: LACTULOSE 20 GM/30 ML UDC PO (10:40)
--- NOTE | 2024-12-07 11:00 | PCFNICU ---
ICU Rounding Note: Pt current nutrition is Vital HP at 70 ml/hr. Last recorded weight is 200 kg, down from 225 kg from admit. Bowel Motility:No BM reported. Labs Reviewed: Glu 224, BUN 34, Alb 3.0, Cr 0.65 Meds Noted: Senokot,Lasix, Precedex, Miralax. Skin:WNL Additional Notes: Patient remains on mechanical vent. Tube feedings are being tolerated of Vital HP at 70 ml/hr. Flush 30ml q 4 hours. KUB ordered for possible bowel obstruction / no BM since 11/28. Agree with diet orders. Following daily in ICU rounds. Will monitor weight, labs, skin, diet orders, meds every Thursday and Thursday.
[2024-12-07] MEDS: dexmedeTOMIDine 400 MCG/100 ML 400 MCG/100 ML BAG 35 MCG IV CONT (14:00)
[2024-12-07] MEDS: dexmedeTOMIDine 400 MCG/100 ML 400 MCG/100 ML BAG 40 MCG IV CONT ×3 (17:00→22:00)
[2024-12-07] MEDS: MINERAL OIL/WHITE PETROLATUM OINTMENT 1 APPLIC EACH EYE (21:07)
[2024-12-07] MEDS: SENNA/DOCUSATE SODIUM TABLET 1 TAB PO (21:07)
[2024-12-08] VITALS (55 sets, daily range): BP systolic 114–174; BP diastolic 77–104; PULSE 62–90; RESP 15–28; TEMP 37.8–38.4; O2SAT 87–100
[2024-12-08] MEDS: CENTRAL LINE FLUSH 10 ML IV PUSH ×4 (01:28→21:08)
[2024-12-08] MEDS: dexmedeTOMIDine 400 MCG/100 ML 400 MCG/100 ML BAG 40 MCG IV CONT ×2 (02:00)
[2024-12-08] MEDS: IPRATROPIUM BR 0.02% INH SOLN 0.5 MG/2.5 ML VIAL INHALATION ×4 (02:47→20:04)
[2024-12-08] MEDS: ACETYLCYSTEINE 20% INHAL SOLN 800 MG/4 ML VIAL 200 MG INHALATION ×4 (02:47→20:04)
[2024-12-08 05:20] LABS: Alveolar/Arterial O2 Gradient 61.6 mmHg; Carboxyhemoglobin 1.4 % THb (0-2.0); Fractional Inspired Oxygen 25 %; HCO3 ABG 32.6 mEq/l (22.0-26.0); Methemoglobin ABG 0.0 %THb (0-1.5); Oxygen Content ABG 19.4 %vol (16.0-22.0); Oxygen Saturation ABG 94.7 % (95.0-100.0); PCO2 ABG 42.3 mmHg (35.0-45.0); PO2 ABG 66.4 mmHg (80.0-100.0); PO2 FiO2 Ratio Arterial Blood 2.66 %; Reduced Hemoglobin 6.0 %THb (0-5.0)
[2024-12-08 05:23] LABS: Site Drawn ARTLINE
[2024-12-08 05:24] LABS: Arterial Blood Gas Tidal Volume 450 ml; Arterial Blood Gas Ventilator rate 20 /MIN
[2024-12-08 05:30] LABS: Hematocrit 45.3 % (42.0-52.0); Hemoglobin 13.8 g/dL (14.0-18.0); Immature Granulocyte Percent A 0.6 % (0-0.5); Lymphocytes Absolute Auto 1.79 K/mm3 (0.9-3.2); Mean Corpuscular HGB Conc 30.5 g/dl (32-36); Mean Corpuscular Hemoglobin 27.0 pg (26-34); Mean Corpuscular Volume 88.6 fl (80-100); Nucleated Red Blood Cells Absolute Auto 0.000 K/mm3 (0.0-0.012); Nucleated Red Blood Cells Perc 0.0 % (0.0-0.2); Platelet Count Result 183 k/mm3 (150-375); Red Blood Count 5.11 M/mm3 (4.6-6.20); White Blood Count 10.3 K/mm3 (4.5-10.0)
[2024-12-08 05:53] LABS: Alanine Aminotransferase 34 U/L (6-50); Albumin Level 3.1 g/dL (3.5-5.1); Alkaline Phosphatase 142 U/L (38-126); Anion Gap 7 mmol/L (4-12); Aspartate Amino Transferase 40 U/L (17-59); Bilirubin,Total 1.1 mg/dL (0.2-1.3); Blood Urea Nitrogen 34 mg/dL (9-20); Calcium 8.8 mg/dL (8.4-10.2); Carbon Dioxide 34 mmol/L (22-30); Chloride 95 mmol/L (98-107); Estimated CRCL calculation 167 ml/min; Estimated Glomerular Filt Rate > 60; Glucose 165 mg/dL (65-110); Magnesium 1.8 mg/dL (1.6-2.3); Potassium 4.0 mmol/L (3.4-5.0); Sodium 136 mmol/L (137-145); Total Protein 6.9 g/dL (6.3-8.2)
[2024-12-08] MEDS: dexmedeTOMIDine 400 MCG/100 ML 400 MCG/100 ML BAG 30 MCG IV CONT (06:00)
[2024-12-08] MEDS: dexmedeTOMIDine 400 MCG/100 ML 400 MCG/100 ML BAG 35 MCG IV CONT (07:59)
[2024-12-08 08:11] LABS: Hematocrit 46.5 % (42.0-52.0); Hemoglobin 14.0 g/dL (14.0-18.0); Immature Granulocyte Percent A 0.3 % (0-0.5); Lymphocytes Absolute Auto 1.80 K/mm3 (0.9-3.2); Mean Corpuscular HGB Conc 30.1 g/dl (32-36); Mean Corpuscular Hemoglobin 27.2 pg (26-34); Mean Corpuscular Volume 90.5 fl (80-100); Nucleated Red Blood Cells Absolute Auto 0.000 K/mm3 (0.0-0.012); Nucleated Red Blood Cells Perc 0.0 % (0.0-0.2); Platelet Count Result 185 k/mm3 (150-375); Red Blood Count 5.14 M/mm3 (4.6-6.20); White Blood Count 10.4 K/mm3 (4.5-10.0)
[2024-12-08 08:27] LABS: INR 1.4
[2024-12-08 08:28] LABS: Partial Thromboplastin Time 31.6 Seconds (22.3-36.8)
[2024-12-08 08:43] LABS: Prothrombin Time 16.8 Seconds (11.1-14.7)
[2024-12-08] MEDS: PANTOPRAZOLE SODIUM IV 40 MG VIAL IV PUSH (08:46)
[2024-12-08] MEDS: levoFLOXacin 750 MG/D5W 150 ML 750 MG/150 ML BAG 100 MG IVPB (08:46)
--- NOTE | 2024-12-08 08:52 | P.PNINT_ITS ---
Progress Note: A&P Assessment and Plan (1) Acute on chronic respiratory failure with hypoxia and hypercapnia: Code(s): J96.21 - Acute and chronic respiratory failure with hypoxia; J96.22 - Acute and chronic respiratory failure with hypercapnia Status: Acute Assessment and Plan: Acute on chronic respiratory failure secondary to multifactorial combination of COPD, obesity hypoventilation syndrome, left-sided pneumonia, pulmonary edema, atelectasis 11/26: Patient was admitted for increasing/worsening dyspnea 1 day prior to admission. Patient was in the intermediate Unit, evaluated by pulmonology, has been noncompliant with his AVAPS/BiPAP. 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 Also was possibly delirious as he pulled out his IV lines and BiPAP mask. -was on propofol, dropped his blood pressures in the 40s systolic, propofol infusion were discontinued currently sedated with Versed and fentanyl On admission: Chest x-ray shows a consolidation versus atelectasis versus combination of 2 on the left side. Patient is a too big for CT scanner hence unable to evaluate 11/29 bronchoscopy was done. Minimal amount of secretions were seen. Continue to elevate left side with pillows more than right Continue bronchodilators, Mucomyst nebs -status post Pulmozyme nebs -Continue chest PT has been ordered -status post Solu-Medrol -11/29: Sputum culture is growing Pseudomonas. Nasal MRSA screen was positive. Patient was on vancomycin earlier, which was discontinued -currently on levofloxacin Currently on CMV mode of ventilation, 40% FiO2 and peep of 10. -12/07: Tolerated ASV almost totally evening in the knee got tired, t achycardic, and was placed back on CMV mode of ventilation -diuresing well, will repeat Lasix -patient more awake this morning, will place on ASV mode, and then try him on pressure support ventilation -chest x-ray and ABGs reviewed -currently only on Precedex, (2) COPD exacerbation: Code(s): J44.1 - Chronic obstructive pulmonary disease with (acute) exacerbation Status: Acute Assessment and Plan: See above (3) Pneumonia: Code(s): J18.9 - Pneumonia, unspecified organism Status: Acute Assessment and Plan: See above (4) Hypotension: Code(s): I95.9 - Hypotension, unspecified Status: Acute Assessment and Plan: Patient dropped his blood pressure is likely related to propofol infuse and positive-pressure ventilation -required phenylephrine push and Levophed infusion Now off pressors (5) Atrial fibrillation with RVR: Code(s): I48.91 - Unspecified atrial fibrillation Status: Acute Assessment and Plan: Patient has a history of AFib with RVR, currently rate controlled but remains in atrial fibrillation -continue Eliquis -given that he has this ileus/small-bowel obstruction, will hold Eliquis and start heparin infusion (12/08) (6) Type 2 diabetes mellitus: Qualifiers: 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: without 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 Diabetes mellitus complication status: without complication Qualified Code(s): E11.9 - Type 2 diabetes mellitus without complications Code(s): E11.9 - Type 2 diabetes mellitus without complications Status: Acute Assessment and Plan: Accu-Cheks and sliding scale insulin Hold Lantus since patient is (7) Essential hypertension: Code(s): I10 - Essential (primary) hypertension Status: Acute Assessment and Plan: Hold antihypertensive medications at this time (8) KATIE (obstructive sleep apnea): Code(s): G47.33 - Obstructive sleep apnea (adult) (pediatric) Status: Acute Assessment and Plan: Non compliant with his CPAP/AVAPS -currently intubated (9) Edema of abdominal wall: Code(s): R60.0 - Localized edema Status: Acute Assessment and Plan: Edema of the abdominal wall on the left side likely related to dependent edema as patient fevers to lay on that side Lasix will be continued (10) Electrolyte abnormality: Code(s): E87.8 - Other disorders of electrolyte and fluid balance, not elsewhere classified Status: Acute Assessment and Plan: Potassium improved after replacement Magnesium improved after replacement (11) Ileus: Code(s): K56.7 - Ileus, unspecified Status: Acute Assessment and Plan: 12/07: Patient has not had any bowel moved, obtained a obstructive series which showed Ileus versus early large bowel obstruction -OG tube to suction -will hold MiraLax, senna S -continue Dulcolax suppository -surgery has been consulted Plan DVT prophylaxis: Apixaban held due to Ileus/SBO, started on heparin infusion Stress ulcer prophylaxis: Protonix Nutrition: Hold tube feeds, continue Dulcolax suppository Code Status: Full code Critical Care Time Spent: 33 minutes 12/07: Discussed with daughter and sister and updated them with patient's condition and plan of care. They are aware that patient has developed an ileus/ early large bowel obstruction. I answered all the questions Due to a high probability of clinically significant, life threatening deterioration, the patient required my highest level of preparedness to intervene emergently and I personally spent this critical care time directly and personally managing the patient. This critical care time included obtaining a history; examining the patient; pulse oximetry; ordering and review of studies; arranging urgent treatment with development of a management plan; evaluation of patient's response to treatment; frequent reassessment; and discussions with other providers. It was exclusive of separately billable procedures and treating other patients and teaching time. Please see Assessment and Plan section and the rest of the note for further information on patient assessment and treatment This dictation may have been done utilizing a voice recognition system. Attempts have been made to correct errors. However, there may be uncorrected grammatical, spelling, and recognitions errors present. Subjective Date/time seen: 12/08/24 08:52 Interval history: Reason for consult: Acute hypoxic and hypercapnic respiratory failure since, hypotension/shock, pneumonia, COPD exacerbation, noncompliance 11/28 intubation 11/29 bronchoscopy 12/08/2024: Patient seen and examined the ICU, remains intubated on CMV mode of ventilation, peep of 10, 25% FiO2. Remains on Precedex infusion. Is more awake this morning, nods to questions, follows simple commands. Febrile with a T-max of 100.5 F. urine output has been adequate, hemodynamically stable. Not much and G-tube drainage. No bowel movements Review of Systems Review of Systems: ROS unobtainable: Yes unobtainable due to endotracheal tube, unobtainable due to medical condition and unobtainable due to mental status Exam Narrative: General: Significantly obese gentleman, currently intubated, sedated in no acute distress HEENT:? Pupils equal and reactive, sclera is clear, ETT in place Neck:? Thick and short neck Respiratory:? Decreased air entry bilaterally, no wheezing. Breath sounds are improved on the left side but still less than as compared to right side Chest: Left breast is larger than the right, induration, erythema and warmth has improved Cardiac:? Distant heart sounds, irregularly irregular Abdomen:? Morbidly obese, indurated and firm on the left side with pitting edema, right side is softer with less edema, according the daughter patient prefers to lay on the left side, causing possible dependent edema and swelling Extremities:? Edema is improving in bilateral lower extremities, palpable pedal pulses Neuro:? Patient is intubated, on Precedex infusion, more awake this morning, nods to questions, follows simple commands in lower extremities, moves all extremities spontaneously, acknowledges examiner in the room, tracking Skin:? Bruising noted on upper extremities, torso, chronic venous stasis changes on bilateral lower extremity Psych:? Unable to assess at this time Objective Data Vital Signs Vital Signs: Vital Signs - 24 hr 12/07/24 09:00 12/07/24 10:00 12/07/24 10:00 Temperature 101.1 F H 101.0 F H Pulse Rate 69 73 73 Respiratory Rate 24 H 22 H 22 H Blood Pressure 142/92 H 132/84 Pulse Oximetry 95 95 Oxygen Delivery Fraction of Inspired Oxygen 12/07/24 10:00 12/07/24 10:46 12/07/24 10:46 Temperature Pulse Rate 73 71 71 Respiratory Rate 18 18 Blood Pressure Pulse Oximetry Oxygen Delivery Fraction of Inspired Oxygen 12/07/24 11:00 12/07/24 11:19 12/07/24 12:00 Temperature 100.8 F H 101 F H Pulse Rate 74 64 77 Respiratory Rate 22 H 22 H Blood Pressure 139/95 H 149/79 H Pulse Oximetry 96 95 96 Oxygen Delivery Mechanical Ventilation Fraction of Inspired Oxygen 30 12/07/24 12:00 12/07/24 12:00 12/07/24 12:00 Temperature Pulse Rate 77 Respiratory Rate 24 H Blood Pressure Pulse Oximetry 96 Oxygen Delivery Mechanical Ventilation Fraction of Inspired Oxygen 30 30 12/07/24 12:00 12/07/24 13:00 12/07/24 14:00 Temperature 100.7 F H Pulse Rate 76 63 66 Respiratory Rate 20 20 Blood Pressure 146/87 H Pulse Oximetry 96 Oxygen Delivery Fraction of Inspired Oxygen 12/07/24 14:00 12/07/24 14:00 12/07/24 14:00 Temperature 100.5 F H Pulse Rate 66 67 67 Respiratory Rate 20 14 Blood Pressure 138/90 Pulse Oximetry 97 Oxygen Delivery Fraction of Inspired Oxygen 12/07/24 14:10 12/07/24 14:15 12/07/24 14:20 Temperature Pulse Rate 67 66 67 Respiratory Rate 20 20 Blood Pressure Pulse Oximetry 96 Oxygen Delivery Mechanical Ventilation Fraction of Inspired Oxygen 30 12/07/24 15:00 12/07/24 15:45 12/07/24 16:00 Temperature 100.2 F H 100.5 F H Pulse Rate 68 75 Respiratory Rate 18 18 Blood Pressure 147/80 H 112/83 Pulse Oximetry 97 95 Oxygen Delivery Fraction of Inspired Oxygen 30 12/07/24 16:00 12/07/24 16:00 12/07/24 16:00 Temperature Pulse Rate 78 76 Respiratory Rate 20 Blood Pressure Pulse Oximetry 96 Oxygen Delivery Mechanical Ventilation Fraction of Inspired Oxygen 30 12/07/24 17:00 12/07/24 17:00 12/07/24 17:00 Temperature 100.3 F H Pulse Rate 66 69 69 Respiratory Rate 18 20 20 Blood Pressure Pulse Oximetry 97 Oxygen Delivery Fraction of Inspired Oxygen 12/07/24 17:26 12/07/24 18:00 12/07/24 18:00 Temperature 100.3 F H Pulse Rate 66 68 66 Respiratory Rate 18 Blood Pressure 149/105 H Pulse Oximetry 97 99 Oxygen Delivery Mechanical Ventilation Fraction of Inspired Oxygen 30 12/07/24 18:00 12/07/24 19:00 12/07/24 19:53 Temperature 100.3 F H Pulse Rate 66 69 69 Respiratory Rate 20 18 18 Blood Pressure 140/91 H Pulse Oximetry 100 100 Oxygen Delivery Mechanical Ventilation Fraction of Inspired Oxygen 30 12/07/24 19:55 12/07/24 19:58 12/07/24 19:59 Temperature 100.1 F H Pulse Rate 65 61 Respiratory Rate 18 Blood Pressure 149/101 H Pulse Oximetry 98 Oxygen Delivery Fraction of Inspired Oxygen 30 12/07/24 20:00 12/07/24 20:00 12/07/24 20:40 Temperature Pulse Rate 61 61 50 L Respiratory Rate 20 20 20 Blood Pressure Pulse Oximetry Oxygen Delivery Fraction of Inspired Oxygen 12/07/24 20:55 12/07/24 20:55 12/07/24 21:00 Temperature 100.3 F H Pulse Rate 50 L 63 63 Respiratory Rate 20 21 H Blood Pressure 150/94 H Pulse Oximetry 98 95 Oxygen Delivery Mechanical Ventilation Fraction of Inspired Oxygen 30 12/07/24 22:00 12/07/24 22:00 12/07/24 22:00 Temperature Pulse Rate 68 60 60 Respiratory Rate 21 H 21 H Blood Pressure Pulse Oximetry Oxygen Delivery Fraction of Inspired Oxygen 12/07/24 22:00 12/07/24 23:15 12/07/24 23:50 Temperature 99.9 F H 99.8 F H Pulse Rate 62 62 64 Respiratory Rate 22 H 22 H Blood Pressure 159/100 H 145/78 H Pulse Oximetry 97 97 97 Oxygen Delivery Mechanical Ventilation Fraction of Inspired Oxygen 30 12/07/24 23:52 12/07/24 23:52 12/07/24 23:53 Temperature Pulse Rate 64 63 Respiratory Rate 22 H Blood Pressure Pulse Oximetry 97 Oxygen Delivery Mechanical Ventilation Fraction of Inspired Oxygen 30 12/08/24 00:00 12/08/24 00:00 12/08/24 01:00 Temperature 100.1 F H Pulse Rate 62 62 63 Respiratory Rate 20 20 20 Blood Pressure 146/89 H Pulse Oximetry 98 Oxygen Delivery Fraction of Inspired Oxygen 12/08/24 02:00 12/08/24 02:00 12/08/24 02:00 Temperature 100.4 F H Pulse Rate 63 67 64 Respiratory Rate 20 21 H Blood Pressure 114/89 Pulse Oximetry 99 Oxygen Delivery Fraction of Inspired Oxygen 12/08/24 02:00 12/08/24 02:47 12/08/24 02:55 Temperature Pulse Rate 64 64 64 Respiratory Rate 21 H 23 H Blood Pressure Pulse Oximetry 99 Oxygen Delivery Mechanical Ventilation Fraction of Inspired Oxygen 12/08/24 03:00 12/08/24 04:00 12/08/24 04:00 Temperature 100.4 F H Pulse Rate 69 74 74 Respiratory Rate 23 H 23 H Blood Pressure 162/100 H Pulse Oximetry 94 96 Oxygen Delivery Mechanical Ventilation Fraction of Inspired Oxygen 12/08/24 04:00 12/08/24 04:00 12/08/24 04:00 Temperature 100.2 F H Pulse Rate 68 67 Respiratory Rate 22 H 22 H Blood Pressure 128/77 Pulse Oximetry 98 Oxygen Delivery Fraction of Inspired Oxygen 12/08/24 05:20 12/08/24 06:00 12/08/24 06:00 Temperature 100.4 F H Pulse Rate 74 74 74 Respiratory Rate 23 H Blood Pressure 123/94 H Pulse Oximetry 96 97 Oxygen Delivery Mechanical Ventilation Fraction of Inspired Oxygen 12/08/24 06:00 12/08/24 07:59 12/08/24 07:59 Temperature Pulse Rate 67 69 69 Respiratory Rate 22 H 16 16 Blood Pressure Pulse Oximetry Oxygen Delivery Fraction of Inspired Oxygen 12/08/24 08:26 12/08/24 08:26 12/08/24 08:47 Temperature Pulse Rate 75 75 71 Respiratory Rate 16 25 H Blood Pressure Pulse Oximetry 96 Oxygen Delivery Mechanical Ventilation Fraction of Inspired Oxygen 25 Intake/Output Intake/Output: Intake & Output 12/05/24 12/06/24 12/07/24 12/08/24 23:59 23:59 23:59 23:59 Intake Total 2068.7 2333.0 2027.0 299.5 Output Total 5825 4655 3055 755 Balance -3756.3 -2322.0 -1028.0 -455.5 Meds/Results Medications: Active Medications Generic Name Dose Route Start Last Admin Trade Name Freq PRN Reason Stop Dose Admin Acetaminophen 650 mg 11/26/24 14:25 12/07/24 04:00 Acetaminophen 325 Mg Tablet PO 650 mg Q6H PRN Administration Mild Pain (1-3) or Fever Acetylcysteine 200 mg 11/28/24 08:55 12/08/24 08:24 Acetylcysteine 20% Inhal Soln 800 Mg/4 Ml Vial INHALATION 200 mg Q6HRT EDMUNDO Administration Apixaban 5 mg 11/26/24 21:00 12/07/24 21:07 Apixaban 5 Mg Tablet PO 5 mg On Hold: 12/08/24 07:15 Q12HR EDMUNDO Administration Bisacodyl 5 mg 12/05/24 10:16 12/05/24 11:36 Bisacodyl 5 Mg Tablet Ec PO 5 mg QAM PRN Administration Constipation Dextrose 12.5 gm 11/26/24 16:15 Dextrose 50% 25 Gm/50 Ml Syringe IV PUSH PRN PRN Hypoglycemia Protocol Glucagon 1 mg 11/26/24 16:15 Glucagon For Inj 1 Mg Vial IM PRN PRN Hypoglycemia Protocol Glucose 15 gm 11/26/24 16:15 Glucose Oral Gel 15 Gm Of Glucse In 37.5 Gm Tube PO PRN PRN Hypoglycemia Protocol Heparin Sodium (Porcine) 10,000 units 12/08/24 07:12 Heparin Sodium 5,000 Units/Ml Vial IV PUSH PRN PRN aPTT less than 55 seconds Heparin Sodium (Porcine) 5,000 units 12/08/24 07:12 Heparin Sodium 5,000 Units/Ml Vial IV PUSH PRN PRN aPTT 55 - 70 seconds Dextrose 1,000 mls @ 100 mls/hr 11/26/24 16:15 Dextrose 5% 1,000 Ml IVPB PRN PRN Hypoglycemia Protocol Dexmedetomidine HCl 400 mcg in 100 mls @ 35 mls/hr 12/06/24 12:25 12/08/24 07:59 Precedex 400 Mcg/100 Ml IV CONT 0.7 mcg/kg/hr .Q2H52M EDMUNDO 35 mls/hr Protocol Administration 0.7 MCG/KG/HR Heparin Sodium/Dextrose 25,000 units in 250 mls @ 15 mls/hr 12/08/24 07:15 Heparin Sodium/D5w 100 Units/Ml IV CONT .[id number] [facility] Protocol 1,500 UNITS/HR Levofloxacin/Dextrose 750 mg in 150 mls @ 100 mls/hr 12/08/24 09:00 12/08/24 08:46 Levaquin 750 Mg/D5w 150 Ml IVPB 100 mls/hr Q24H EDMUNDO Administration Insulin Aspart 3 - 6 units 11/28/24 06:50 12/08/24 06:31 Insulin Aspart (*Bkc) 100 Units/Ml SUB-Q Not Given Q6HR [facility] Protocol Insulin Glargine 25 units 12/01/24 09:00 12/07/24 08:34 Insulin Glargine (*Bkc) 100 Units/Ml SUB-Q 25 units On Hold: 12/08/24 07:18 QAM EDMUNDO Administration Ipratropium [place] 0.5 mg 11/29/24 08:00 12/08/24 08:23 Ipratropium Br 0.02% Inh Soln 0.5 Mg/2.5 Ml Vial INHALATION 0.5 mg Q6HRT EDMUNDO Administration Levalbuterol HCl 1.25 mg 11/29/24 20:00 12/08/24 08:23 Levalbuterol Neb 1.25 Mg/3 Ml INHALATION 1.25 mg Q6HRT EDMUNDO Administration Multi-Ingred Cream/Lotion/Oil/Oint 1 applic 11/28/24 09:00 12/08/24 08:46 Mineral Oil/White Petrolatum Ointment EACH EYE Not Given Q12HR [facility] Pantoprazole Sodium 40 mg 11/29/24 09:00 12/08/24 08:46 Pantoprazole Sodium Iv 40 Mg Vial IV PUSH 40 mg QAM EDMUNDO Administration Polyethylene Glycol 17 gm 12/05/24 10:20 12/07/24 08:35 Polyethylene Glycol 3350 17 Gm Powd.Pack PO 17 gm On Hold: 12/08/24 07:19 QAM EDMUNDO Administration Senna/Docusate Sodium 1 tab 12/06/24 21:00 12/07/24 21:07 Senna/Docusate Sodium Tablet PO 1 tab On Hold: 12/08/24 07:17 HS EDMUNDO Administration Sertraline HCl 50 mg 11/27/24 09:00 11/28/24 12:06 Sertraline Hcl 50 Mg Tablet PO 50 mg On Hold: 11/29/24 08:16 DAILY EDMUNDO Administration Sodium Chloride 10 ml 11/28/24 14:00 12/08/24 06:32 Central Line Flush IV PUSH 10 ml Q8HR EDMUNDO Administration Sodium Chloride 20 ml 11/28/24 11:53 12/03/24 05:31 Central Line Flush IV PUSH 20 ml PRN PRN Administration after blood draws Radiology Results: ITS Impressions Abdomen X-Ray 12/07/24 10:46 Impression: 1. Ileus versus early large bowel obstruction. Follow-up recommended to assess resolution Venous Doppler Study 12/07/24 13:02 IMPRESSION: 1: No lower extremity deep venous thrombosis. Chest X-Ray 12/08/24 08:39 IMPRESSION: 1. No significant change. 2. Bibasilar atelectasis and/or airspace disease. 3. Probable effusions. Labs Labs: Laboratory Results - last 24 hr 12/07/24 12/07/24 12/07/24 11:51 17:27 19:15 WBC RBC Hgb Hct MCV MCH MCHC RDW Plt Count MPV Immature Gran % (Auto) Neut % (Auto) Lymph % (Auto) [place] % (Auto) Eos % (Auto) Baso % (Auto) Lymph # (Auto) [place] # (Auto) Eos # (Auto) Baso # (Auto) Abs Immat Gran (auto) Absolute Neuts (auto) Absolute Nucleated RBC Nucleated RBC % PT INR APTT Puncture Site ABG pH ABG pCO2 ABG pO2 ABG PO2/FiO2 Ratio ABG HCO3 ABG O2 Saturation ABG O2 Content ABG Base Excess A-a Gradient Oxyhemoglobin Carboxyhemoglobin Methemoglobin Reduced Hemoglobin Total Hemoglobin O2 Delivery Device O2 Liters/Min Minute Volume Vent Rate Vent Mode FiO2 Tidal Volume PEEP Peak Inspir Pressure Pressure Support Sodium Potassium Chloride Carbon Dioxide Anion Gap BUN Creatinine Estim Creat Clear Calc Estimated GFR Glucose POC Capillary Glucose 218 H 153 H 176 H Calcium Phosphorus Magnesium Total Bilirubin AST ALT Alkaline Phosphatase Total Protein Albumin 12/07/24 12/08/24 12/08/24 23:55 05:08 05:22 WBC 10.3 H RBC 5.11 Hgb 13.8 L Hct 45.3 MCV 88.6 MCH 27.0 MCHC 30.5 L RDW 16.4 H Plt Count 183 MPV 10.2 Immature Gran % (Auto) 0.6 H Neut % (Auto) 71.2 Lymph % (Auto) 17.3 L [place] % (Auto) 9.2 H Eos % (Auto) 1.5 Baso % (Auto) 0.2 Lymph # (Auto) 1.79 [place] # (Auto) 1.0 H Eos # (Auto) 0.2 Baso # (Auto) 0.0 Abs Immat Gran (auto) 0.06 H Absolute Neuts (auto) 7.4 H Absolute Nucleated RBC 0.000 Nucleated RBC % 0.0 PT INR APTT Puncture Site Artline ABG pH 7.505 H* ABG pCO2 42.3 ABG pO2 66.4 L ABG PO2/FiO2 Ratio 2.66 ABG HCO3 32.6 H ABG O2 Saturation 94.7 L ABG O2 Content 19.4 ABG Base Excess 8.6 A-a Gradient 61.6 Oxyhemoglobin 92.6 Carboxyhemoglobin 1.4 Methemoglobin 0.0 Reduced Hemoglobin 6.0 H Total Hemoglobin 14.9 O2 Delivery Device Ventilator O2 Liters/Min Not Reportable Minute Volume Not Reportable Vent Rate 20 Vent Mode Cmv FiO2 25 Tidal Volume 450 PEEP 10 Peak Inspir Pressure Not Reportable Pressure Support Not Reportable Sodium 136 L Potassium 4.0 Chloride 95 L Carbon Dioxide 34 H Anion Gap 7 BUN 34 H Creatinine 0.67 L Estim Creat Clear Calc 167 Estimated GFR > 60 Glucose 165 H POC Capillary Glucose 172 H Calcium 8.8 Phosphorus 4.1 Magnesium 1.8 Total Bilirubin 1.1 AST 40 ALT 34 Alkaline Phosphatase 142 H Total Protein 6.9 Albumin 3.1 L 12/08/24 08:03 WBC 10.4 H RBC 5.14 Hgb 14.0 Hct 46.5 MCV 90.5 MCH 27.2 MCHC 30.1 L RDW 16.5 H Plt Count 185 MPV 10.4 Immature Gran % (Auto) 0.3 Neut % (Auto) 71.0 Lymph % (Auto) 17.3 L [place] % (Auto) 9.6 H Eos % (Auto) 1.4 Baso % (Auto) 0.4 Lymph # (Auto) 1.80 [place] # (Auto) 1.0 H Eos # (Auto) 0.2 Baso # (Auto) 0.0 Abs Immat Gran (auto) 0.03 Absolute Neuts (auto) 7.4 H Absolute Nucleated RBC 0.000 Nucleated RBC % 0.0 PT 16.8 H INR 1.4 APTT 31.6 Puncture Site ABG pH ABG pCO2 ABG pO2 ABG PO2/FiO2 Ratio ABG HCO3 ABG O2 Saturation ABG O2 Content ABG Base Excess A-a Gradient Oxyhemoglobin Carboxyhemoglobin Methemoglobin Reduced Hemoglobin Total Hemoglobin O2 Delivery Device O2 Liters/Min Minute Volume Vent Rate Vent Mode FiO2 Tidal Volume PEEP Peak Inspir Pressure Pressure Support Sodium Potassium Chloride Carbon Dioxide Anion Gap BUN Creatinine Estim Creat Clear Calc Estimated GFR Glucose POC Capillary Glucose Calcium Phosphorus Magnesium Total Bilirubin AST ALT Alkaline Phosphatase Total Protein Albumin Quality VTE Prophylaxis VTE prophylaxis: pharmacologic ordered
[2024-12-08] MEDS: HEPARIN SOD/D5W 100 UNITS/ML 25,000 UNITS/250 ML BAG 15 UNITS IV CONT ×2 (08:54→23:48)
[2024-12-08] MEDS: dexmedeTOMIDine 400 MCG/100 ML 400 MCG/100 ML BAG 50 MCG IV CONT ×5 (10:31→23:47)
[2024-12-08] MEDS: FUROSEMIDE INJ 40 MG/4 ML VIAL IV PUSH (10:35)
--- NOTE | 2024-12-08 10:45 | WPDGICN ---
Assessment and Plan Assessment and plan (1) Chronic constipation: Code(s): K59.09 - Other constipation Status: Acute (2) Large bowel obstruction: Code(s): K56.609 - Unspecified intestinal obstruction, unspecified as to partial versus complete obstruction Status: Acute Plan 1. Chronic constipation/large bowel obstruction: No prior known colonoscopy history. Abdominal x-ray 12/07/2024 showed ileus versus early large bowel obstruction. Repeat abdominal x-ray today showed oral gastric tube tip in the distal esophagus and advancement 15 cm was recommended. There was persistent gaseous distention of portions of the colon and there were a few gas-filled but not frankly dilated loops of gas-filled small bowel in the abdomen. The there is no free intraperitoneal gas or dilated gas-filled loops of the bowel to suggest obstruction. Patient is on tube feedings and is not having bowel movements despite being given MiraLax, laculose, senna, and Dulcolax which are all currently on hold. He has a very large abdomen so it is difficult to differentiate if there is abnormal abdominal distension. He has hypoactive bowel sounds. DDX: obstruction vs Ogilive Syndrome vs motility disorder. Will try to stimulate bowels from below with dulcolax suppositories daily along with Amitiza 24 mcg BID. Once patient is having bowel movements suppositories can be discontinued and continue bowel regimen with Amitiza and and affective this should be continued outpatient for his chronic constipation If no improvement with above regimen may consider colonoscopy with decompression Thank you very much for allowing me to share in the care of this very nice patient. This report may have been done utilizing a voice recognition system. Attempts have been made to correct errors. However, there may be uncorrected grammatical, spelling, and recognition errors present. GI Consult Note Consult date/time: 12/08/24 10:45 Reason for consult: Large bowel obstruction HPI: Aman Newberry is a 64 year old male with past medical surgical history of diabetes, HLD, HTN, AFib RVR, COPD, asthma, obstructive sleep apnea with BiPAP at night, chronic constipation, chronic respiratory failure on O2 and class C obesity. The patient was seen with daughter, sister, and [id number] at bedside. Most history in subjective information was obtained from the daughter who the patient lives with. Patient unable to provide any subjective information regarding current GI symptoms. Patient's daughter states that prior to admission the patient was having generalized abdominal discomfort, intermittent nausea, frequent bloating, and chronic constipation. It was stated that the patient can sometimes go a week without a bowel movement. He had home he had tried MiraLax, Dulcolax and senna but had never been on a daily prescription medication. This admission the patient was given Dulcolax, senna and MiraLax without any bowel movements despite being on tube feedings. ENDOSCOPY HISTORY: No prior known EGD or colonoscopy history LABS AND STOOL STUDIES: Labs 12/08/2024: Sodium 136, potassium 4.0, BUN 34, creatinine 0.64, GFR >60, calcium 8.8, phosphorus 4.1, magnesium 1.8 WBCs 10, HGB 14, HCT 47, MCV 91, platelets 185, INR 1.4 Total bilirubin 1.1, AST 40, ALT 34, alkaline phosphatase 142, albumin 3.1 IMAGING: Abdominal Xray 12/08/2024: FINDINGS: Orogastric tube with distal tip at the distal esophagus relatively near the level of the gastroesophageal junction. Persistent gaseous distention of portions of the colon. There are few gas-filled but not frankly dilated loops of gas-filled small bowel in the left abdomen. No free intraperitoneal gas. Persistent consolidation in the left mid to lower lung zone. Visualized right lung is clear. Heart size is normal IMPRESSION: 1. Orogastric tube tip in the distal esophagus. Recommend advancement by [address] the proximal side-port below level of the gastroesophageal junction. 2. No free intraperitoneal gas or dilated gas-filled loops of bowel to suggest obstruction. 3. Persistent opacities in the left mid to lower lung zone which could represent atelectasis, pneumonia, small left pleural effusion or some combination thereof. Abdominal Xray 12/07/2024: Findings: There are air-filled dilated loops of large bowel the largest measuring 8 cm. There are no dilated small bowel loops.There is moderate fecal content. No free air. No abnormal calcifications No acute osseous abnormality. Nasogastric tube terminates in the stomach. Impression: 1. Ileus versus early large bowel obstruction. Follow-up recommended to assess resolution Review of Systems Review of Systems: ROS unobtainable: Yes unobtainable due to medical condition PMFSH Past Medical History Medical History Class 3 severe obesity with body mass index (BMI) of 60.0 to 69.9 in adult Chronic respiratory failure with hypoxia and hypercapnia On home O2 Eczema KATIE (obstructive sleep apnea) With prior sleep study in 2010 recommend a BiPAP of Type 2 diabetes mellitus COPD (chronic obstructive pulmonary disease) HLD (hyperlipidemia) Essential hypertension Surgical History Surgical History History of back surgery Status post surgery of both feet Family History Family History (Updated 11/26/24 @ 09:23 by Martha Garcia RN) Mother Hypertension Father Emphysema lung Social History Social History Smoking packs per day: 1.5 Smoking cigarettes per day: 30.0 Years smoked: 12 Smoking pack-years: 18.00 Smoking status: Former smoker Tobacco type: cigarettes Second hand tobacco smoke exposure: Yes Smoking end date: 03/16/14 Alcohol intake: never Substance use: never Substance use type: does not use Do You Feel Safe in your Home?: Yes Lack of Transportation: YES Lack of Food: Never True Current Housing: I Have Housing Concerned About Future Housing: No Difficulty Paying Gas/Electric Bills: No Difficulty Paying for Meds: No Currently Unemployed: No Education: Associate Degree Difficulty w/ Childcare or Family Care: No Spiritual care concerns: No Meds Home Medications and Allergies Home Medications ?Medication ?Instructions ?Recorded ?Confirmed ?Type [id number] 300 mcg-K 60 1 tablet PO DAILY 05/13/19 11/26/24 History mcg-lycop 600 mcg-lutein 300 mcg tablet (Centrum Silver Men) Held on 11/26/24. Instructions: Patient no longer taking sertraline 50 mg tablet 50 mg PO DAILY #90 tabs 11/14/19 11/26/24 Rx amlodipine 10 mg tablet 10 mg PO DAILY #90 tabs 03/02/20 11/26/24 Rx Held on 11/26/24. Instructions: Patient no longer taking lisinopril 40 mg tablet See Rx Instructions .Route 01/01/22 11/26/24 Rx .COMPLEX #30 tabs metformin 1,000 mg tablet 1,000 mg PO BID 07/20/24 11/26/24 History apixaban 5 mg tablet (Eliquis) 5 mg PO Q12HR #30 tabs 07/24/24 11/26/24 Rx Held on 11/26/24. Instructions: Patient no longer taking bacitracin 500 unit/gram topical 1 applic topical Q12HR #30 grams 07/24/24 11/26/24 Rx ointment Held on 11/26/24. Instructions: Patient no longer taking furosemide 40 mg tablet 40 mg PO BID #30 tabs 07/24/24 11/26/24 Rx guaifenesin 600 mg tablet, 1,200 mg (2 x 600 mg) PO Q12HR #30 07/24/24 11/26/24 Rx extended release 12 hr (Mucus tabs Relief ER) levalbuterol HCl 1.25 mg/3 mL 1.25 mg (3 mL) inhalation Q4HRT 07/24/24 11/26/24 Rx solution for nebulization PRN shortness of breath or wheezing #30 mL umeclidinium 62.5 mcg-vilanterol 1 inh inhalation DAILY #60 ea 07/24/24 11/26/24 Rx 25 mcg/actuation powdr for inhalation (Anoro Ellipta) Allergies Allergy/AdvReac Type Severity Reaction Status Date / Time tramadol AdvReac urinary Verified 11/26/24 11:11 retention Vital Signs Vital Signs - 24 hr 12/07/24 10:46 12/07/24 10:46 12/07/24 11:00 Temperature 100.8 F H Pulse Rate 71 71 74 Respiratory Rate 18 18 22 H Blood Pressure 139/95 H Pulse Oximetry 96 Oxygen Delivery Fraction of Inspired Oxygen 12/07/24 11:19 12/07/24 12:00 12/07/24 12:00 Temperature 101 F H Pulse Rate 64 77 77 Respiratory Rate 22 H 24 H Blood Pressure 149/79 H Pulse Oximetry 95 96 Oxygen Delivery Mechanical Ventilation Fraction of Inspired Oxygen 30 12/07/24 12:00 12/07/24 12:00 12/07/24 12:00 Temperature Pulse Rate 76 Respiratory Rate Blood Pressure Pulse Oximetry 96 Oxygen Delivery Mechanical Ventilation Fraction of Inspired Oxygen 30 30 12/07/24 13:00 12/07/24 14:00 12/07/24 14:00 Temperature 100.7 F H Pulse Rate 63 66 66 Respiratory Rate 20 20 20 Blood Pressure 146/87 H Pulse Oximetry 96 Oxygen Delivery Fraction of Inspired Oxygen 12/07/24 14:00 12/07/24 14:00 12/07/24 14:10 Temperature 100.5 F H Pulse Rate 67 67 67 Respiratory Rate 14 20 Blood Pressure 138/90 Pulse Oximetry 97 Oxygen Delivery Fraction of Inspired Oxygen 12/07/24 14:15 12/07/24 14:20 12/07/24 15:00 Temperature 100.2 F H Pulse Rate 66 67 68 Respiratory Rate 20 18 Blood Pressure 147/80 H Pulse Oximetry 96 97 Oxygen Delivery Mechanical Ventilation Fraction of Inspired Oxygen 30 12/07/24 15:45 12/07/24 16:00 12/07/24 16:00 Temperature 100.5 F H Pulse Rate 75 Respiratory Rate 18 Blood Pressure 112/83 Pulse Oximetry 95 96 Oxygen Delivery Mechanical Ventilation Fraction of Inspired Oxygen 30 30 12/07/24 16:00 12/07/24 16:00 12/07/24 17:00 Temperature 100.3 F H Pulse Rate 78 76 66 Respiratory Rate 20 18 Blood Pressure Pulse Oximetry 97 Oxygen Delivery Fraction of Inspired Oxygen 12/07/24 17:00 12/07/24 17:00 12/07/24 17:26 Temperature Pulse Rate 69 69 66 Respiratory Rate 20 20 Blood Pressure Pulse Oximetry 97 Oxygen Delivery Mechanical Ventilation Fraction of Inspired Oxygen 30 12/07/24 18:00 12/07/24 18:00 12/07/24 18:00 Temperature 100.3 F H Pulse Rate 68 66 66 Respiratory Rate 18 20 Blood Pressure 149/105 H Pulse Oximetry 99 Oxygen Delivery Fraction of Inspired Oxygen 12/07/24 19:00 12/07/24 19:53 12/07/24 19:55 Temperature 100.3 F H 100.1 F H Pulse Rate 69 69 65 Respiratory Rate 18 18 18 Blood Pressure 140/91 H 149/101 H Pulse Oximetry 100 100 98 Oxygen Delivery Mechanical Ventilation Fraction of Inspired Oxygen 30 12/07/24 19:58 12/07/24 19:59 12/07/24 20:00 Temperature Pulse Rate 61 61 Respiratory Rate 20 Blood Pressure Pulse Oximetry Oxygen Delivery Fraction of Inspired Oxygen 30 12/07/24 20:00 12/07/24 20:40 12/07/24 20:55 Temperature Pulse Rate 61 50 L 50 L Respiratory Rate 20 20 Blood Pressure Pulse Oximetry 98 Oxygen Delivery Mechanical Ventilation Fraction of Inspired Oxygen 30 12/07/24 20:55 12/07/24 21:00 12/07/24 22:00 Temperature 100.3 F H Pulse Rate 63 63 68 Respiratory Rate 20 21 H Blood Pressure 150/94 H Pulse Oximetry 95 Oxygen Delivery Fraction of Inspired Oxygen 12/07/24 22:00 12/07/24 22:00 12/07/24 22:00 Temperature 99.9 F H Pulse Rate 60 60 62 Respiratory Rate 21 H 21 H 22 H Blood Pressure 159/100 H Pulse Oximetry 97 Oxygen Delivery Fraction of Inspired Oxygen 12/07/24 23:15 12/07/24 23:50 12/07/24 23:52 Temperature 99.8 F H Pulse Rate 62 64 64 Respiratory Rate 22 H 22 H Blood Pressure 145/78 H Pulse Oximetry 97 97 97 Oxygen Delivery Mechanical Ventilation Mechanical Ventilation Fraction of Inspired Oxygen 30 30 12/07/24 23:52 12/07/24 23:53 12/08/24 00:00 Temperature Pulse Rate 63 62 Respiratory Rate 20 Blood Pressure Pulse Oximetry Oxygen Delivery Fraction of Inspired Oxygen 30 12/08/24 00:00 12/08/24 01:00 12/08/24 02:00 Temperature 100.1 F H Pulse Rate 62 63 63 Respiratory Rate 20 20 Blood Pressure 146/89 H Pulse Oximetry 98 Oxygen Delivery Fraction of Inspired Oxygen 12/08/24 02:00 12/08/24 02:00 12/08/24 02:00 Temperature 100.4 F H Pulse Rate 67 64 64 Respiratory Rate 20 21 H 21 H Blood Pressure 114/89 Pulse Oximetry 99 Oxygen Delivery Fraction of Inspired Oxygen 12/08/24 02:47 12/08/24 02:55 12/08/24 03:00 Temperature 100.4 F H Pulse Rate 64 64 69 Respiratory Rate 23 H 23 H Blood Pressure 162/100 H Pulse Oximetry 99 94 Oxygen Delivery Mechanical Ventilation Fraction of Inspired Oxygen 12/08/24 04:00 12/08/24 04:00 12/08/24 04:00 Temperature Pulse Rate 74 74 Respiratory Rate 23 H Blood Pressure Pulse Oximetry 96 Oxygen Delivery Mechanical Ventilation Fraction of Inspired Oxygen 12/08/24 04:00 12/08/24 04:00 12/08/24 05:20 Temperature 100.2 F H Pulse Rate 68 67 74 Respiratory Rate 22 H 22 H Blood Pressure 128/77 Pulse Oximetry 98 96 Oxygen Delivery Mechanical Ventilation Fraction of Inspired Oxygen 25 12/08/24 06:00 12/08/24 06:00 12/08/24 06:00 Temperature 100.4 F H Pulse Rate 74 74 67 Respiratory Rate 23 H 22 H Blood Pressure 123/94 H Pulse Oximetry 97 Oxygen Delivery Fraction of Inspired Oxygen 12/08/24 07:59 12/08/24 07:59 12/08/24 08:26 Temperature Pulse Rate 69 69 75 Respiratory Rate 16 16 Blood Pressure Pulse Oximetry 96 Oxygen Delivery Mechanical Ventilation Fraction of Inspired Oxygen 12/08/24 08:26 12/08/24 08:47 12/08/24 09:00 Temperature Pulse Rate 75 71 77 Respiratory Rate 16 25 H 20 Blood Pressure Pulse Oximetry Oxygen Delivery Fraction of Inspired Oxygen 12/08/24 10:26 12/08/24 10:31 12/08/24 10:31 Temperature Pulse Rate 71 84 84 Respiratory Rate 22 H 22 H Blood Pressure Pulse Oximetry 87 L Oxygen Delivery Mechanical Ventilation Fraction of Inspired Oxygen 25 Exam Const: General: comfortable and in distress HENMT: Mouth: Yes dry mucous membranes Eyes: General: appearance normal, both eyes and all related structures Sclera: sclerae normal Pupils: Equal, round and reactive pupils present Neck: Neck: supple Resp: Other: patient on vent Cardio: Rhythm: abnormal rhythm GI: Inspection: distended GI Palp: Yes Soft to palpation, No Tenderness to palpation present (GI) and No Guarding due to palpation present (GI) Auscultation: abnormal bowel sounds Other: hypoactive bowel sounds all 4 quadrants Skin: Wounds: wounds noted Neuro: Sensory Exam: normal sensation Extrem: General: edema and pedal edema Results Labs 12/08/24 08:03 12/08/24 05:22 Labs: Short CBC 12/08/24 12/08/24 Range/Units 05:22 08:03 WBC 10.3 H 10.4 H (4.5-10.0) K/mm3 Hgb 13.8 L 14.0 (14.0-18.0) g/dL Hct 45.3 46.5 (42.0-52.0) % Plt Count 183 185 (150-375) k/mm3 BMP 12/08/24 05:22 Sodium 136 L Potassium 4.0 Chloride 95 L Carbon Dioxide 34 H BUN 34 H Creatinine 0.67 L Glucose 165 H Calcium 8.8 Liver Function 12/08/24 Range/Units 05:22 Total Bilirubin 1.1 (0.2-1.3) mg/dL AST 40 (17-59) U/L ALT 34 (6-50) U/L Alkaline Phosphatase 142 H (38-126) U/L Albumin 3.1 L (3.5-5.1) g/dL
--- NOTE | 2024-12-08 10:50 | PCFNICU ---
ICU Rounding Note: Pt current nutrition is Vital HP-on hold. Last recorded weight is 200 kg, down from 225 kg on admit. Bowel Motility: Last reported BM 11/28 Labs Reviewed: Glu 165, BUN 34, Alb 3.1, Na 136, Cr 0.67 Meds Noted: Precedex,Lantus Skin: WNL Additional Notes: Patient remains on mechanical vent. Tube feedings are currently on hold for ileus. GI consult. Following daily in ICU rounds. Will monitor weight, labs, skin, diet orders, meds every Thursday and Thursday. .
--- NOTE | 2024-12-08 11:37 | PM.CNGS ---
Assessment and Plan Assessment and plan (1) Ileus: Code(s): K56.7 - Ileus, unspecified Status: Acute Assessment and Plan: Patient 1st presented to the ED on 11/26 with complaints of shortness of breath. He was found to be in acute on chronic respiratory failure with hypoxia and hypercapnia. He was intubated on 11/28 and moved to the ICU. As of today, patient has not had a bowel movement for 10 days. MiraLax, senna docusate, and dulcolax have all been tried. Xray of the abdomen was obtained yesterday and demonstrated an ileus versus early large bowel obstruction. A repeat x-ray was obtained this morning and demonstrated no free intraperitoneal gas or dilated gas-filled loops of bowel to suggest obstruction. Abdominal exam benign. Continue NG decompression and conservative measures. No surgical intervention necessary at this time. GI is on board. Treat constipation according to their recommendations. Could consider interval colonoscopy once patient is discharged from the hospital. Unsure if he has had a colonoscopy in the past. (2) Atrial fibrillation with RVR: Code(s): I48.91 - Unspecified atrial fibrillation Status: Acute Assessment and Plan: Eliquis being held. Patient started on heparin infusion. (3) Class 3 severe obesity with body mass index (BMI) of 60.0 to 69.9 in adult: Qualifiers: Obesity type: due to excess calories Serious obesity comorbidity presence: with serious comorbidity Qualified Code(s): E66.813 - Obesity, class 3; Z68.44 - Body mass index [BMI] 60.0-69.9, adult Code(s): E66.813 - Obesity, class 3; Z68.44 - Body mass index [BMI] 60.0-69.9, adult Status: Acute Assessment and Plan: Unable to fit in CT machine, so all imaging is obtained via Xray. (4) Type 2 diabetes mellitus: Qualifiers: Diabetes mellitus alf insulin use: without alf use Diabetes mellitus complication status: without complication Qualified Code(s): E11.9 - Type 2 diabetes mellitus without complications Code(s): E11.9 - Type 2 diabetes mellitus without complications Status: Acute (5) COPD exacerbation: Code(s): J44.1 - Chronic obstructive pulmonary disease with (acute) exacerbation Status: Acute Assessment and Plan: Patient is still intubated. Placed on ASV mode yesterday evening and got tired and tachycardic. Placed back on CMV mode. Again, placed on ASV mode this morning. On Precedex. (6) Pneumonia: Code(s): J18.9 - Pneumonia, unspecified organism Status: Acute Assessment and Plan: Sputum culture growing Pseudomonas. nasal MRSA positive. Currently on levofloxacin. Plan Discussed patient's case and plan of care with . History of Present Illness Consult details Consult date: 12/08/24 Reason for consult: other (Ileus and small-bowel obstruction) Requesting physician: Ysabel Morocho MD Narrative: Patient is a 64-year-old male with history of KATIE, type 2 diabetes mellitus, COPD (wears BiPAP at night; smoker since age 14), hyperlipidemia, morbid obesity, and hypertension who we have been asked to see in surgical consultation for a ileus and small-bowel obstruction. Patient 1st presented to the ED on 11/26/2024 with complaints of worsening shortness of breath. Per documentation, patient was noncompliant with his medication for COPD. He was admitted to the floor in the setting of pneumonia/COPD exacerbation. Pulmonology was consulted and per their note it seems that he is well known to their service. Patient was recently admitted in July of 2024. He did not cooperate with home health to allow set up of AVAPS AE device in his house. He did not follow up in their office. Patient started on AVAPS machine in the hospital. On 11/28 patient had chronic hypercapnic respiratory failure as he was not keeping his AVAPS on. Nurse is worried about his respiratory status as he appeared cyanotic. The patient became very agitated and continue to remove his BiPAP. Hospitalist had a discussion with him and nursing staff call the patient's daughter to try to reason with him. Patient was not able to breathe adequately on his own. He pulled out 3 of his IVs. He was later agreeable to intubation and moved to the ICU. On 11/28 patient's blood pressure dropped, likely related to propofol infusion and positive pressure ventilation. He required phenylephrine push and he was started on Levophed. A central line and arterial line were placed. Off of pressors 11/29. Of note, patient is too big for the CT scanner, so only x-rays have been able to be obtained. Patient getting nutrition via NG tube. Kim noted to have history of Afib with RVR. EKGs while in hospital demonstrated this. He has been continued on Eliquis. Yesterday, patient was able to be weaned off Fentanyl and was only on Precedex. He was placed on pressure support ventilation. He was having some edema of the abdominal wall on the left side likely related to patient positioning when laying down. Patient had not had a bowel movement since 11/28, 10 days ago. An XRay of the abdomen was obtained due to concern for ileus vs SBO. This demonstrated ileus vs early large bowel obstruction. General surgery team was consulted at this time. Tube feeds were held. Dulcolax suppositories were continued. Patient had also been given MiraLax and senna. A repeat plain film today demonstrated no free intraperitoneal gas or dilated gas-filled loops of bowel to suggest obstruction. Patient febrile today at 1.4 and mildly tachypneic at 22 breaths per minute. Patient still intubated upon my exam today, but able to answer yes or no questions with nodding or shaking head. He denies any previous abdominal surgeries. Denies any abdominal pain. NG with minimal output. PMFSH Past Medical History Medical History Class 3 severe obesity with body mass index (BMI) of 60.0 to 69.9 in adult Chronic respiratory failure with hypoxia and hypercapnia On home O2 Eczema KATIE (obstructive sleep apnea) With prior sleep study in 2010 recommend a BiPAP of 25/20 Type 2 diabetes mellitus COPD (chronic obstructive pulmonary disease) HLD (hyperlipidemia) Essential hypertension Surgical History Surgical History History of back surgery Status post surgery of both feet Family History Family History (Updated 11/26/24 @ 09:23 by Martha Garcia RN) Mother Hypertension Father Emphysema lung Social History Social History Smoking packs per day: 1.5 Smoking cigarettes per day: 30.0 Years smoked: 12 Smoking pack-years: 18.00 Smoking status: Former smoker Tobacco type: cigarettes Second hand tobacco smoke exposure: Yes Smoking end date: 03/16/14 Alcohol intake: never Substance use: never Substance use type: does not use Do You Feel Safe in your Home?: Yes Lack of Transportation: YES Lack of Food: Never True Current Housing: I Have Housing Concerned About Future Housing: No Difficulty Paying Gas/Electric Bills: No Difficulty Paying for Meds: No Currently Unemployed: No Education: Associate Degree Difficulty w/ Childcare or Family Care: No Spiritual care concerns: No Meds Home Medications and Allergies Home Medications ?Medication ?Instructions ?Recorded ?Confirmed ?Type [id number] 300 mcg-K 60 1 tablet PO DAILY 05/13/19 11/26/24 History mcg-lycop 600 mcg-lutein 300 mcg tablet (Centrum Silver Men) Held on 11/26/24. Instructions: Patient no longer taking sertraline 50 mg tablet 50 mg PO DAILY #90 tabs 11/14/19 11/26/24 Rx amlodipine 10 mg tablet 10 mg PO DAILY #90 tabs 03/02/20 11/26/24 Rx Held on 11/26/24. Instructions: Patient no longer taking lisinopril 40 mg tablet See Rx Instructions .Route 01/01/22 11/26/24 Rx .COMPLEX #30 tabs metformin 1,000 mg tablet 1,000 mg PO BID 07/20/24 11/26/24 History apixaban 5 mg tablet (Eliquis) 5 mg PO Q12HR #30 tabs 07/24/24 11/26/24 Rx Held on 11/26/24. Instructions: Patient no longer taking bacitracin 500 unit/gram topical 1 applic topical Q12HR #30 grams 07/24/24 11/26/24 Rx ointment Held on 11/26/24. Instructions: Patient no longer taking furosemide 40 mg tablet 40 mg PO BID #30 tabs 07/24/24 11/26/24 Rx guaifenesin 600 mg tablet, 1,200 mg (2 x 600 mg) PO Q12HR #30 07/24/24 11/26/24 Rx extended release 12 hr (Mucus tabs Relief ER) levalbuterol HCl 1.25 mg/3 mL 1.25 mg (3 mL) inhalation Q4HRT 07/24/24 11/26/24 Rx solution for nebulization PRN shortness of breath or wheezing #30 mL umeclidinium 62.5 mcg-vilanterol 1 inh inhalation DAILY #60 ea 07/24/24 11/26/24 Rx 25 mcg/actuation powdr for inhalation (Anoro Ellipta) Allergies Allergy/AdvReac Type Severity Reaction Status Date / Time tramadol AdvReac urinary Verified 11/26/24 11:11 retention Vital Signs Vital Signs - 24 hr 12/07/24 12:00 12/07/24 12:00 12/07/24 12:00 Temperature 101 F H Pulse Rate 77 77 Respiratory Rate 22 H 24 H Blood Pressure 149/79 H Pulse Oximetry 96 96 Oxygen Delivery Mechanical Ventilation Fraction of Inspired Oxygen 30 12/07/24 12:00 12/07/24 12:00 12/07/24 13:00 Temperature 100.7 F H Pulse Rate 76 63 Respiratory Rate 20 Blood Pressure 146/87 H Pulse Oximetry 96 Oxygen Delivery Fraction of Inspired Oxygen 30 12/07/24 14:00 12/07/24 14:00 12/07/24 14:00 Temperature Pulse Rate 66 66 67 Respiratory Rate 20 20 Blood Pressure Pulse Oximetry Oxygen Delivery Fraction of Inspired Oxygen 12/07/24 14:00 12/07/24 14:10 12/07/24 14:15 Temperature 100.5 F H Pulse Rate 67 67 66 Respiratory Rate 14 20 Blood Pressure 138/90 Pulse Oximetry 97 96 Oxygen Delivery Mechanical Ventilation Fraction of Inspired Oxygen 30 12/07/24 14:20 12/07/24 15:00 12/07/24 15:45 Temperature 100.2 F H Pulse Rate 67 68 Respiratory Rate 20 18 Blood Pressure 147/80 H Pulse Oximetry 97 Oxygen Delivery Fraction of Inspired Oxygen 30 12/07/24 16:00 12/07/24 16:00 12/07/24 16:00 Temperature 100.5 F H Pulse Rate 75 78 Respiratory Rate 18 Blood Pressure 112/83 Pulse Oximetry 95 96 Oxygen Delivery Mechanical Ventilation Fraction of Inspired Oxygen 30 12/07/24 16:00 12/07/24 17:00 12/07/24 17:00 Temperature 100.3 F H Pulse Rate 76 66 69 Respiratory Rate 20 18 20 Blood Pressure Pulse Oximetry 97 Oxygen Delivery Fraction of Inspired Oxygen 12/07/24 17:00 12/07/24 17:26 12/07/24 18:00 Temperature 100.3 F H Pulse Rate 69 66 68 Respiratory Rate 20 18 Blood Pressure 149/105 H Pulse Oximetry 97 99 Oxygen Delivery Mechanical Ventilation Fraction of Inspired Oxygen 30 12/07/24 18:00 12/07/24 18:00 12/07/24 19:00 Temperature 100.3 F H Pulse Rate 66 66 69 Respiratory Rate 20 18 Blood Pressure 140/91 H Pulse Oximetry 100 Oxygen Delivery Fraction of Inspired Oxygen 12/07/24 19:53 12/07/24 19:55 12/07/24 19:58 Temperature 100.1 F H Pulse Rate 69 65 61 Respiratory Rate 18 18 Blood Pressure 149/101 H Pulse Oximetry 100 98 Oxygen Delivery Mechanical Ventilation Fraction of Inspired Oxygen 30 12/07/24 19:59 12/07/24 20:00 12/07/24 20:00 Temperature Pulse Rate 61 61 Respiratory Rate 20 20 Blood Pressure Pulse Oximetry Oxygen Delivery Fraction of Inspired Oxygen 30 12/07/24 20:40 12/07/24 20:55 12/07/24 20:55 Temperature Pulse Rate 50 L 50 L 63 Respiratory Rate 20 20 Blood Pressure Pulse Oximetry 98 Oxygen Delivery Mechanical Ventilation Fraction of Inspired Oxygen 30 12/07/24 21:00 12/07/24 22:00 12/07/24 22:00 Temperature 100.3 F H Pulse Rate 63 68 60 Respiratory Rate 21 H 21 H Blood Pressure 150/94 H Pulse Oximetry 95 Oxygen Delivery Fraction of Inspired Oxygen 12/07/24 22:00 12/07/24 22:00 12/07/24 23:15 Temperature 99.9 F H Pulse Rate 60 62 62 Respiratory Rate 21 H 22 H Blood Pressure 159/100 H Pulse Oximetry 97 97 Oxygen Delivery Mechanical Ventilation Fraction of Inspired Oxygen 30 12/07/24 23:50 12/07/24 23:52 12/07/24 23:52 Temperature 99.8 F H Pulse Rate 64 64 63 Respiratory Rate 22 H 22 H Blood Pressure 145/78 H Pulse Oximetry 97 97 Oxygen Delivery Mechanical Ventilation Fraction of Inspired Oxygen 30 12/07/24 23:53 12/08/24 00:00 12/08/24 00:00 Temperature Pulse Rate 62 62 Respiratory Rate 20 20 Blood Pressure Pulse Oximetry Oxygen Delivery Fraction of Inspired Oxygen 30 12/08/24 01:00 12/08/24 02:00 12/08/24 02:00 Temperature 100.1 F H 100.4 F H Pulse Rate 63 63 67 Respiratory Rate 20 20 Blood Pressure 146/89 H 114/89 Pulse Oximetry 98 99 Oxygen Delivery Fraction of Inspired Oxygen 12/08/24 02:00 12/08/24 02:00 12/08/24 02:47 Temperature Pulse Rate 64 64 64 Respiratory Rate 21 H 21 H 23 H Blood Pressure Pulse Oximetry Oxygen Delivery Fraction of Inspired Oxygen 12/08/24 02:55 12/08/24 03:00 12/08/24 04:00 Temperature 100.4 F H Pulse Rate 64 69 74 Respiratory Rate 23 H 23 H Blood Pressure 162/100 H Pulse Oximetry 99 94 96 Oxygen Delivery Mechanical Ventilation Mechanical Ventilation Fraction of Inspired Oxygen 12/08/24 04:00 12/08/24 04:00 12/08/24 04:00 Temperature 100.2 F H Pulse Rate 74 68 Respiratory Rate 22 H Blood Pressure 128/77 Pulse Oximetry 98 Oxygen Delivery Fraction of Inspired Oxygen 12/08/24 04:00 12/08/24 05:20 12/08/24 06:00 Temperature 100.4 F H Pulse Rate 67 74 74 Respiratory Rate 22 H 23 H Blood Pressure 123/94 H Pulse Oximetry 96 97 Oxygen Delivery Mechanical Ventilation Fraction of Inspired Oxygen 12/08/24 06:00 12/08/24 06:00 12/08/24 07:59 Temperature Pulse Rate 74 67 69 Respiratory Rate 22 H 16 Blood Pressure Pulse Oximetry Oxygen Delivery Fraction of Inspired Oxygen 12/08/24 07:59 12/08/24 08:26 12/08/24 08:26 Temperature Pulse Rate 69 75 75 Respiratory Rate 16 16 Blood Pressure Pulse Oximetry 96 Oxygen Delivery Mechanical Ventilation Fraction of Inspired Oxygen 12/08/24 08:47 12/08/24 09:00 12/08/24 10:26 Temperature Pulse Rate 71 77 71 Respiratory Rate 25 H 20 Blood Pressure Pulse Oximetry 87 L Oxygen Delivery Mechanical Ventilation Fraction of Inspired Oxygen 12/08/24 10:31 12/08/24 10:31 Temperature Pulse Rate 84 84 Respiratory Rate 22 H 22 H Blood Pressure Pulse Oximetry Oxygen Delivery Fraction of Inspired Oxygen Exam Const: General: comfortable and no acute distress Other: Intubated. Eyes: General: appearance normal, both eyes and all related structures Neck: Neck: supple and no JVD Resp: Other: Intubated with mechanical ventilation. Mildly tachypneic at 22 breaths per minute. Cardio: Rate: regular rate GI: Inspection: non-distended GI Palp: Yes Soft to palpation, No Tenderness to palpation present (GI) and No Guarding due to palpation present (GI) Auscultation: abnormal bowel sounds (Hypoactive) Skin: General skin exam: normal color and no rashes or lesions noted Extrem: General: normal to inspection Results Labs 12/08/24 08:03 12/08/24 05:22 Labs: Abnormal lab results 12/07/24 12/07/24 12/07/24 Range/Units 11:51 17:27 19:15 WBC (4.5-10.0) K/mm3 Hgb (14.0-18.0) g/dL MCHC (32-36) g/dl RDW (11.5-14.5) % Immature Gran % (Auto) (0-0.5) % Lymph % (Auto) (18.3-44.2) % [place] % (Auto) (2.6-8.5) % [place] # (Auto) (0.1-0.6) K/mm3 Abs Immat Gran (auto) (0.00-0.031) K/mm3 Absolute Neuts (auto) (1.3-6.7) K/mm3 PT (11.1-14.7) Seconds ABG pH (7.350-7.450) ABG pO2 (80.0-100.0) mmHg ABG HCO3 (22.0-26.0) mEq/l ABG O2 Saturation (95.0-100.0) % Reduced Hemoglobin (0-5.0) %THb Sodium (137-145) mmol/L Chloride (98-107) mmol/L Carbon Dioxide (22-30) mmol/L BUN (9-20) mg/dL Creatinine (0.7-1.3) mg/dL Glucose (65-110) mg/dL POC Capillary Glucose 218 H 153 H 176 H (65-105) mg/dl Alkaline Phosphatase (38-126) U/L Albumin (3.5-5.1) g/dL 12/07/24 12/08/24 12/08/24 Range/Units 23:55 05:08 05:22 WBC 10.3 H (4.5-10.0) K/mm3 Hgb 13.8 L (14.0-18.0) g/dL MCHC 30.5 L (32-36) g/dl RDW 16.4 H (11.5-14.5) % Immature Gran % (Auto) 0.6 H (0-0.5) % Lymph % (Auto) 17.3 L (18.3-44.2) % [place] % (Auto) 9.2 H (2.6-8.5) % [place] # (Auto) 1.0 H (0.1-0.6) K/mm3 Abs Immat Gran (auto) 0.06 H (0.00-0.031) K/mm3 Absolute Neuts (auto) 7.4 H (1.3-6.7) K/mm3 PT (11.1-14.7) Seconds ABG pH 7.505 H* (7.350-7.450) ABG pO2 66.4 L (80.0-100.0) mmHg ABG HCO3 32.6 H (22.0-26.0) mEq/l ABG O2 Saturation 94.7 L (95.0-100.0) % Reduced Hemoglobin 6.0 H (0-5.0) %THb Sodium 136 L (137-145) mmol/L Chloride 95 L (98-107) mmol/L Carbon Dioxide 34 H (22-30) mmol/L BUN 34 H (9-20) mg/dL Creatinine 0.67 L (0.7-1.3) mg/dL Glucose 165 H (65-110) mg/dL POC Capillary Glucose 172 H (65-105) mg/dl Alkaline Phosphatase 142 H (38-126) U/L Albumin 3.1 L (3.5-5.1) g/dL 12/08/ Range/Units 08:03 WBC 10.4 H (4.5-10.0) K/mm3 Hgb (14.0-18.0) g/dL MCHC 30.1 L (32-36) g/dl RDW 16.5 H (11.5-14.5) % Immature Gran % (Auto) (0-0.5) % Lymph % (Auto) 17.3 L (18.3-44.2) % [place] % (Auto) 9.6 H (2.6-8.5) % [place] # (Auto) 1.0 H (0.1-0.6) K/mm3 Abs Immat Gran (auto) (0.00-0.031) K/mm3 Absolute Neuts (auto) 7.4 H (1.3-6.7) K/mm3 PT 16.8 H (11.1-14.7) Seconds ABG pH (7.350-7.450) ABG pO2 (80.0-100.0) mmHg ABG HCO3 (22.0-26.0) mEq/l ABG O2 Saturation (95.0-100.0) % Reduced Hemoglobin (0-5.0) %THb Sodium (137-145) mmol/L Chloride (98-107) mmol/L Carbon Dioxide (22-30) mmol/L BUN (9-20) mg/dL Creatinine (0.7-1.3) mg/dL Glucose (65-110) mg/dL POC Capillary Glucose (65-105) mg/dl Alkaline Phosphatase (38-126) U/L Albumin (3.5-5.1) g/dL Diabetes panel 12/08/24 Range/Units 05:22 Sodium 136 L (137-145) mmol/L Potassium 4.0 (3.4-5.0) mmol/L Chloride 95 L (98-107) mmol/L Carbon Dioxide 34 H (22-30) mmol/L BUN 34 H (9-20) mg/dL Creatinine 0.67 L (0.7-1.3) mg/dL Glucose 165 H (65-110) mg/dL Calcium 8.8 (8.4-10.2) mg/dL AST 40 (17-59) U/L ALT 34 (6-50) U/L Alkaline Phosphatase 142 H (38-126) U/L Total Protein 6.9 (6.3-8.2) g/dL Albumin 3.1 L (3.5-5.1) g/dL Calcium panel 12/08/24 Range/Units 05:22 Calcium 8.8 (8.4-10.2) mg/dL Phosphorus 4.1 (2.5-4.5) mg/dL Albumin 3.1 L (3.5-5.1) g/dL Pituitary panel 12/08/24 Range/Units 05:22 Sodium 136 L (137-145) mmol/L Potassium 4.0 (3.4-5.0) mmol/L Chloride 95 L (98-107) mmol/L Carbon Dioxide 34 H (22-30) mmol/L BUN 34 H (9-20) mg/dL Creatinine 0.67 L (0.7-1.3) mg/dL Glucose 165 H (65-110) mg/dL Calcium 8.8 (8.4-10.2) mg/dL Adrenal panel 12/08/24 Range/Units 05:22 Sodium 136 L (137-145) mmol/L Potassium 4.0 (3.4-5.0) mmol/L Chloride 95 L (98-107) mmol/L Carbon Dioxide 34 H (22-30) mmol/L BUN 34 H (9-20) mg/dL Creatinine 0.67 L (0.7-1.3) mg/dL Glucose 165 H (65-110) mg/dL Calcium 8.8 (8.4-10.2) mg/dL Total Bilirubin 1.1 (0.2-1.3) mg/dL AST 40 (17-59) U/L ALT 34 (6-50) U/L Alkaline Phosphatase 142 H (38-126) U/L Total Protein 6.9 (6.3-8.2) g/dL Albumin 3.1 L (3.5-5.1) g/dL All other labs normal.
[2024-12-08] MEDS: BISACODYL 10 MG SUPPOSITORY RECTAL (14:27)
[2024-12-08] MEDS: IBUPROFEN IV 400 MG in SODIUM CHLORIDE 0.9% IV 100 ML 208 MG IVPB (14:27)
[2024-12-08] MEDS: metroNIDAZOLE 500 MG/ISO 100ML 500 MG/100 ML BAG 100 MG IVPB ×2 (14:59→21:19)
[2024-12-08 15:29] LABS: Partial Thromboplastin Time 58.9 Seconds (22.3-36.8)
[2024-12-08] MEDS: PROPOFOL IV EMULSION 100 ML 12 MG IV CONT ×2 (16:20→23:51)
[2024-12-08] MEDS: dexmedeTOMIDine 400 MCG/100 ML 400 MCG/100 ML BAG 75 MCG IV CONT (16:37)
[2024-12-08] MEDS: dexmedeTOMIDine 400 MCG/100 ML 400 MCG/100 ML BAG 65 MCG IV CONT (18:00)
[2024-12-08] MEDS: dexmedeTOMIDine 400 MCG/100 ML 400 MCG/100 ML BAG 55 MCG IV CONT (19:53)
[2024-12-08] MEDS: MINERAL OIL/WHITE PETROLATUM OINTMENT 1 APPLIC EACH EYE (20:39)
[2024-12-08 22:23] LABS: Partial Thromboplastin Time 106.7 Seconds (22.3-36.8)
[2024-12-09] VITALS (52 sets, daily range): BP systolic 91–165; BP diastolic 64–109; PULSE 62–90; RESP 20–29; TEMP 37.6–38.4; O2SAT 90–100
[2024-12-09] MEDS: IPRATROPIUM BR 0.02% INH SOLN 0.5 MG/2.5 ML VIAL INHALATION ×4 (01:28→19:25)
[2024-12-09] MEDS: ACETYLCYSTEINE 20% INHAL SOLN 800 MG/4 ML VIAL 200 MG INHALATION ×4 (01:28→19:24)
[2024-12-09] MEDS: dexmedeTOMIDine 400 MCG/100 ML 400 MCG/100 ML BAG 50 MCG IV CONT ×2 (01:53→03:54)
[2024-12-09] MEDS: IBUPROFEN IV 400 MG in SODIUM CHLORIDE 0.9% IV 100 ML 208 MG IVPB (01:56)
[2024-12-09 04:48] LABS: Hematocrit 44.5 % (42.0-52.0); Hemoglobin 13.7 g/dL (14.0-18.0); Immature Granulocyte Percent A 0.5 % (0-0.5); Lymphocytes Absolute Auto 1.83 K/mm3 (0.9-3.2); Mean Corpuscular HGB Conc 30.8 g/dl (32-36); Mean Corpuscular Hemoglobin 27.1 pg (26-34); Mean Corpuscular Volume 87.9 fl (80-100); Nucleated Red Blood Cells Absolute Auto 0.000 K/mm3 (0.0-0.012); Nucleated Red Blood Cells Perc 0.0 % (0.0-0.2); Platelet Count Result 187 k/mm3 (150-375); Red Blood Count 5.06 M/mm3 (4.6-6.20); White Blood Count 8.2 K/mm3 (4.5-10.0)
[2024-12-09 04:59] LABS: Partial Thromboplastin Time 57.7 Seconds (22.3-36.8)
[2024-12-09 05:08] LABS: Alveolar/Arterial O2 Gradient 168.1 mmHg; Arterial Blood Gas Tidal Volume 450 ml; Arterial Blood Gas Ventilator rate 20 /MIN; Carboxyhemoglobin 0.9 % THb (0-2.0); Fractional Inspired Oxygen 40 %; HCO3 ABG 31.7 mEq/l (22.0-26.0); Methemoglobin ABG 0.0 %THb (0-1.5); Oxygen Content ABG 18.9 %vol (16.0-22.0); Oxygen Saturation ABG 94.8 % (95.0-100.0); PCO2 ABG 42.6 mmHg (35.0-45.0); PO2 ABG 68.1 mmHg (80.0-100.0); PO2 FiO2 Ratio Arterial Blood 1.70 %; Reduced Hemoglobin 6.3 %THb (0-5.0); Site Drawn ARTLINE
[2024-12-09 05:08] LABS: Alanine Aminotransferase 32 U/L (6-50); Albumin Level 3.1 g/dL (3.5-5.1); Alkaline Phosphatase 126 U/L (38-126); Anion Gap 6 mmol/L (4-12); Aspartate Amino Transferase 39 U/L (17-59); Bilirubin,Total 1.1 mg/dL (0.2-1.3); Blood Urea Nitrogen 34 mg/dL (9-20); Calcium 8.5 mg/dL (8.4-10.2); Carbon Dioxide 33 mmol/L (22-30); Chloride 96 mmol/L (98-107); Estimated CRCL calculation 142 ml/min; Estimated Glomerular Filt Rate > 60; Glucose 158 mg/dL (65-110); Magnesium 1.6 mg/dL (1.6-2.3); Potassium 3.9 mmol/L (3.4-5.0); Sodium 135 mmol/L (137-145); Total Protein 6.8 g/dL (6.3-8.2); Triglycerides 95 mg/dL (<150)
[2024-12-09] MEDS: CENTRAL LINE FLUSH 10 ML IV PUSH ×3 (05:21→22:25)
[2024-12-09] MEDS: metroNIDAZOLE 500 MG/ISO 100ML 500 MG/100 ML BAG 100 MG IVPB ×2 (05:21→13:34)
[2024-12-09] MEDS: dexmedeTOMIDine 400 MCG/100 ML 400 MCG/100 ML BAG 40 MCG IV CONT ×8 (06:00→22:54)
[2024-12-09] MEDS: PROPOFOL IV EMULSION 100 ML 12 MG IV CONT (06:00)
--- NOTE | 2024-12-09 08:20 | P.PNINT_ITS ---
Progress Note: A&P Assessment and Plan (1) Fever: Code(s): R50.9 - Fever, unspecified Status: Acute Assessment and Plan: 12/09 and 12/09: Continues to have fevers, currently on levofloxacin for Pseudomonas pneumonia 12/08: Metronidazole due to large bowel obstruction and to cover anaerobes -12/07: lower extremity venous Dopplers are negative -12/07: Urine culture negative urine culture -12/07: Blood culture pending -chest x-ray shows atelectasis, increased peep to 12 to expand lower lobes of the lungs -will add in vancomycin 12/09, -will consult infectious disease (2) Acute on chronic respiratory failure with hypoxia and hypercapnia: Code(s): J96.21 - Acute and chronic respiratory failure with hypoxia; J96.22 - Acute and chronic respiratory failure with hypercapnia Status: Acute Assessment and Plan: Acute on chronic respiratory failure secondary to multifactorial combination of COPD, obesity hypoventilation syndrome, left-sided pneumonia, pulmonary edema, atelectasis 11/26: Patient was admitted for increasing/worsening dyspnea 1 day prior to admission. Patient was in the intermediate Unit, evaluated by pulmonology, has been noncompliant with his AVAPS/BiPAP. 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 Also was possibly delirious as he pulled out his IV lines and BiPAP mask. -was on propofol, dropped his blood pressures in the 40s systolic, propofol infusion were discontinued currently sedated with Versed and fentanyl On admission: Chest x-ray shows a consolidation versus atelectasis versus combination of 2 on the left side. Patient is a too big for CT scanner hence unable to evaluate 11/29 bronchoscopy was done. Minimal amount of secretions were seen. Continue to elevate left side with pillows more than right Continue bronchodilators, Mucomyst nebs -status post Pulmozyme nebs -Continue chest PT has been ordered -status post Solu-Medrol -11/29: Sputum culture is growing Pseudomonas. Nasal MRSA screen was positive. Patient was on vancomycin earlier, which was discontinued -currently on levofloxacin Currently on CMV mode of ventilation, 40% FiO2 and peep of 10. -12/07: Tolerated ASV almost totally evening in the knee got tired, tachycardic, and was placed back on CMV mode of ventilation -will hold diuresis today is urine is dark -currently only on Precedex, low-dose propofol infusion infusion at a be started on 12/08 due to patient being restless (3) COPD exacerbation: Code(s): J44.1 - Chronic obstructive pulmonary disease with (acute) exacerbation Status: Acute Assessment and Plan: See above (4) Pneumonia: Code(s): J18.9 - Pneumonia, unspecified organism Status: Acute Assessment and Plan: See above (5) Hypotension: Code(s): I95.9 - Hypotension, unspecified Status: Acute Assessment and Plan: Patient dropped his blood pressure is likely related to propofol infuse and positive-pressure ventilation -on admission to the ICU required phenylephrine push and Levophed infusion Now off pressors (6) Atrial fibrillation with RVR: Code(s): I48.91 - Unspecified atrial fibrillation Status: Acute Assessment and Plan: Patient has a history of AFib with RVR, currently rate controlled but remains in atrial fibrillation -continue Eliquis -given that he has this ileus/small-bowel obstruction, will hold Eliquis and continue heparin infusion (12/08) (7) Type 2 diabetes mellitus: Qualifiers: 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: without fdc use Diabetes mellitus complication status: without complication Qualified Code(s): E11.9 - Type 2 diabetes mellitus without complications Code(s): E11.9 - Type 2 diabetes mellitus without complications Status: Acute Assessment and Plan: Accu-Cheks and sliding scale insulin Hold Lantus since patient is NPO (8) Essential hypertension: Code(s): I10 - Essential (primary) hypertension Status: Acute Assessment and Plan: Hold antihypertensive medications at this time (9) KATIE (obstructive sleep apnea): Code(s): G47.33 - Obstructive sleep apnea (adult) (pediatric) Status: Acute Assessment and Plan: Non compliant with his CPAP/AVAPS -currently intubated (10) Edema of abdominal wall: Code(s): R60.0 - Localized edema Status: Acute Assessment and Plan: Edema of the abdominal wall on the left side likely related to dependent edema as patient fevers to lay on that side Will hold Lasix for today and re-evaluate (11) Electrolyte abnormality: Code(s): E87.8 - Other disorders of electrolyte and fluid balance, not elsewhere classified Status: Acute Assessment and Plan: Potassium improved after replacement Magnesium improved after replacement (12) Ileus: Code(s): K56.7 - Ileus, unspecified Status: Acute Assessment and Plan: 12/07: Patient has not had any bowel moved, obtained a obstructive series which showed Ileus versus early large bowel obstruction -OG tube to suction -appreciate surgery and GI recommendations, was started on Dulcolax suppository, lubiprostone, MiraLax Plan DVT prophylaxis: Apixaban held due to Ileus/SBO, started on heparin infusion Stress ulcer prophylaxis: Protonix Nutrition: Hold tube feeds, continue Dulcolax suppository Code Status: Full code Critical Care Time Spent: 32 minutes 12/08: Discussed with daughter and sister and updated them with patient's condition and plan of care. They are aware that patient has developed an ileus/early large bowel obstruction. I answered all the questions Due to a high probability of clinically significant, life threatening deterioration, the patient required my highest level of preparedness to intervene emergently and I personally spent this critical care time directly and personally managing the patient. This critical care time included obtaining a history; examining the patient; pulse oximetry; ordering and review of studies; arranging urgent treatment with development of a management plan; evaluation of patient's response to treatment; frequent reassessment; and discussions with other providers. It was exclusive of separately billable procedures and treating other patients and teaching time. Please see Assessment and Plan section and the rest of the note for further information on patient assessment and treatment This dictation may have been done utilizing a voice recognition system. Attempts have been made to correct errors. However, there may be uncorrected grammatical, spelling, and recognitions errors present. Subjective Date/time seen: 12/09/24 08:20 Interval history: Reason for consult: Acute hypoxic and hypercapnic respiratory failure since, hypotension/shock, pneumonia, COPD exacerbation, noncompliance 11/28 intubation 11/29 bronchoscopy 12/09/2024: Patient seen and examined the ICU, remains intubated on CMV mode of ventilation, peep of 10, 40% FiO2. On Precedex infusion, also propofol infusion was started yesterday in the evening as patient was getting agitated. Hemodynamically stable, remains febrile with a T-max of 101?. No bowel movements despite getting Dulcolax suppository Review of Systems Review of Systems: ROS unobtainable: Yes unobtainable due to endotracheal tube, unobtainable due to medical condition and unobtainable due to mental status Exam Narrative: General: Significantly obese gentleman, currently intubated, sedated in no acute distress HEENT:? Pupils equal and reactive, sclera is clear, ETT in place Neck:? Thick and short neck Respiratory:? Decreased air entry bilaterally, no wheezing. Breath sounds are improved on the left side but still less than as compared to right side Chest: Left breast is larger than the right, induration, erythema and warmth has improved Cardiac:? Distant heart sounds, irregularly irregular Abdomen:? Morbidly obese, indurated and firm on the left side with pitting edema, right side is softer with less edema, according the daughter patient prefers to lay on the left side, causing possible dependent edema and swelling Extremities:? Edema is improving in bilateral lower extremities, palpable pedal pulses Neuro:? Patient is intubated, on Precedex and low-dose propofol infusion, patient is calm, awake, nods to questions follows simple commands in lower extremities, moves all extremities spontaneously Skin:? Bruising noted on upper extremities, torso, chronic venous stasis changes on bilateral lower extremity Psych:? Unable to assess at this time Objective Data Vital Signs Vital Signs: Vital Signs - 24 hr 12/08/24 08:26 12/08/24 08:26 12/08/24 08:47 Temperature Pulse Rate 75 75 71 Respiratory Rate 16 25 H Blood Pressure Pulse Oximetry 96 Oxygen Delivery Mechanical Ventilation Fraction of Inspired Oxygen 12/08/24 09:12/08/24 09:12/08/24 10:00 Temperature 100.6 F H 100.5 F H Pulse Rate 77 77 78 Respiratory Rate 20 18 18 Blood Pressure 156/80 H 137/96 H Pulse Oximetry 94 94 Oxygen Delivery Fraction of Inspired Oxygen 12/08/24 10:00 12/08/24 10:26 12/08/24 10:31 Temperature Pulse Rate 78 71 84 Respiratory Rate 22 H Blood Pressure Pulse Oximetry 87 L Oxygen Delivery Mechanical Ventilation Fraction of Inspired Oxygen 12/08/24 10:31 12/08/24 11:00 12/08/24 12:00 Temperature 100.6 F H Pulse Rate 84 80 74 Respiratory Rate 22 H 24 H 20 Blood Pressure 153/90 H Pulse Oximetry 94 Oxygen Delivery Fraction of Inspired Oxygen 12/08/24 12:00 12/08/24 12:00 12/08/24 12:00 Temperature 100.9 F H Pulse Rate 74 73 Respiratory Rate 20 Blood Pressure 151/92 H Pulse Oximetry 96 Oxygen Delivery Fraction of Inspired Oxygen 30 12/08/24 12:00 12/08/24 12:31 12/08/24 12:31 Temperature Pulse Rate 80 80 Respiratory Rate 20 20 Blood Pressure Pulse Oximetry 96 Oxygen Delivery Mechanical Ventilation Fraction of Inspired Oxygen 40 12/08/24 13:00 12/08/24 13:13 12/08/24 13:13 Temperature 101.1 F H Pulse Rate 75 74 74 Respiratory Rate 16 23 H Blood Pressure 166/100 H Pulse Oximetry 97 94 Oxygen Delivery Mechanical Ventilation Fraction of Inspired Oxygen 40 12/08/24 13:28 12/08/24 14:00 12/08/24 14:00 Temperature 101.2 F H Pulse Rate 76 76 76 Respiratory Rate 24 H 18 Blood Pressure 174/100 H Pulse Oximetry 100 Oxygen Delivery Fraction of Inspired Oxygen 12/08/24 14:27 12/08/24 14:49 12/08/24 14:49 Temperature 101.0 F H Pulse Rate 81 81 Respiratory Rate 18 18 Blood Pressure Pulse Oximetry Oxygen Delivery Fraction of Inspired Oxygen 12/08/24 15:00 12/08/24 15:21 12/08/24 15:27 Temperature 101.1 F H 100.8 F H Pulse Rate 84 89 Respiratory Rate 20 22 H Blood Pressure 137/104 H Pulse Oximetry 100 Oxygen Delivery Fraction of Inspired Oxygen 12/08/24 15:45 12/08/24 16:00 12/08/24 16:00 Temperature 100.9 F H Pulse Rate 80 84 83 Respiratory Rate 15 18 Blood Pressure 131/100 H Pulse Oximetry 100 Oxygen Delivery Fraction of Inspired Oxygen 12/08/24 16:00 12/08/24 16:00 12/08/24 16:13 Temperature Pulse Rate 82 Respiratory Rate 19 Blood Pressure Pulse Oximetry 96 Oxygen Delivery Mechanical Ventilation Fraction of Inspired Oxygen 30 40 12/08/24 16:20 12/08/24 16:25 12/08/24 16:37 Temperature Pulse Rate 90 84 86 Respiratory Rate 22 H 18 Blood Pressure Pulse Oximetry 100 Oxygen Delivery Mechanical Ventilation Fraction of Inspired Oxygen 40 12/08/24 16:37 12/08/24 17:00 12/08/24 17:17 Temperature 100.8 F H Pulse Rate 86 74 81 Respiratory Rate 18 16 Blood Pressure 127/92 H Pulse Oximetry 100 100 Oxygen Delivery Mechanical Ventilation Fraction of Inspired Oxygen 40 12/08/24 18:00 12/08/24 18:00 12/08/24 18:00 Temperature Pulse Rate 76 76 75 Respiratory Rate 20 20 Blood Pressure Pulse Oximetry Oxygen Delivery Fraction of Inspired Oxygen 12/08/24 18:00 12/08/24 18:00 12/08/24 18:32 Temperature 100.8 F H Pulse Rate 75 76 72 Respiratory Rate 20 20 20 Blood Pressure 143/101 H Pulse Oximetry 100 Oxygen Delivery Fraction of Inspired Oxygen 12/08/24 19:00 12/08/24 19:53 12/08/24 19:53 Temperature 100.7 F H Pulse Rate 72 68 68 Respiratory Rate 20 20 20 Blood Pressure 138/85 Pulse Oximetry 100 Oxygen Delivery Fraction of Inspired Oxygen 12/08/24 20:00 12/08/24 20:00 12/08/24 20:00 Temperature 100.8 F H Pulse Rate 69 66 72 Respiratory Rate 20 20 20 Blood Pressure 135/86 Pulse Oximetry 100 Oxygen Delivery Fraction of Inspired Oxygen 12/08/24 20:00 12/08/24 20:00 12/08/24 20:00 Temperature Pulse Rate 70 70 Respiratory Rate 20 Blood Pressure Pulse Oximetry 100 Oxygen Delivery Mechanical Ventilation Fraction of Inspired Oxygen 40 40 12/08/24 20:05 12/08/24 20:06 12/08/24 20:24 Temperature Pulse Rate 66 69 68 Respiratory Rate 20 20 Blood Pressure Pulse Oximetry 100 Oxygen Delivery Mechanical Ventilation Fraction of Inspired Oxygen 40 12/08/24 20:32 12/08/24 21:00 12/08/24 21:08 Temperature 100.8 F H Pulse Rate 70 73 76 Respiratory Rate 20 22 H 28 H Blood Pressure 133/87 Pulse Oximetry 100 Oxygen Delivery Fraction of Inspired Oxygen 12/08/24 21:43 12/08/24 21:43 12/08/24 22:00 Temperature 100.6 F H Pulse Rate 70 70 73 Respiratory Rate 20 20 20 Blood Pressure 125/91 H Pulse Oximetry 100 Oxygen Delivery Fraction of Inspired Oxygen 12/08/24 22:00 12/08/24 22:00 12/08/24 22:00 Temperature Pulse Rate 73 73 73 Respiratory Rate 20 20 Blood Pressure Pulse Oximetry Oxygen Delivery Fraction of Inspired Oxygen 12/08/24 23:00 12/08/24 23:11 12/08/24 23:47 Temperature 100.6 F H Pulse Rate 72 67 66 Respiratory Rate 20 20 Blood Pressure 134/89 Pulse Oximetry 100 100 Oxygen Delivery Mechanical Ventilation Fraction of Inspired Oxygen 40 12/08/24 23:47 12/08/24 23:51 12/08/24 23:51 Temperature Pulse Rate 66 72 72 Respiratory Rate 20 20 20 Blood Pressure Pulse Oximetry Oxygen Delivery Fraction of Inspired Oxygen 12/09/24 00:00 12/09/24 00:00 12/09/24 00:00 Temperature Pulse Rate 65 65 65 Respiratory Rate 20 20 20 Blood Pressure Pulse Oximetry 100 Oxygen Delivery Mechanical Ventilation Fraction of Inspired Oxygen 40 12/09/24 00:00 12/09/24 00:00 12/09/24 00:00 Temperature 100.7 F H Pulse Rate 65 65 Respiratory Rate 20 Blood Pressure 129/83 Pulse Oximetry 100 Oxygen Delivery Fraction of Inspired Oxygen 40 12/09/24 01:00 12/09/24 01:29 12/09/24 01:44 Temperature 100.9 F H Pulse Rate 67 68 70 Respiratory Rate 20 20 26 H Blood Pressure 101/64 Pulse Oximetry 100 Oxygen Delivery Fraction of Inspired Oxygen 12/09/24 01:44 12/09/24 01:53 12/09/24 01:53 Temperature Pulse Rate 69 69 69 Respiratory Rate 20 20 Blood Pressure Pulse Oximetry 96 Oxygen Delivery Mechanical Ventilation Fraction of Inspired Oxygen 40 12/09/24 01:56 12/09/24 02:00 12/09/24 02:00 Temperature 101.1 F H 101.1 F H Pulse Rate 73 73 Respiratory Rate 21 H 21 H Blood Pressure 137/85 Pulse Oximetry 94 Oxygen Delivery Fraction of Inspired Oxygen 12/09/24 02:00 12/09/24 02:00 12/09/24 02:56 Temperature 100.9 F H Pulse Rate 73 73 Respiratory Rate 21 H Blood Pressure Pulse Oximetry Oxygen Delivery Fraction of Inspired Oxygen 12/09/24 03:00 12/09/24 03:54 12/09/24 03:54 Temperature 100.8 F H Pulse Rate 78 78 78 Respiratory Rate 21 H 20 20 Blood Pressure 142/92 H Pulse Oximetry 93 Oxygen Delivery Fraction of Inspired Oxygen 12/09/24 04:00 12/09/24 04:00 12/09/24 04:00 Temperature 100.8 F H Pulse Rate 79 79 Respiratory Rate 20 20 Blood Pressure 136/94 H Pulse Oximetry 95 95 Oxygen Delivery Mechanical Ventilation Fraction of Inspired Oxygen 40 40 12/09/24 04:00 12/09/24 04:00 12/09/24 04:00 Temperature Pulse Rate 65 65 73 Respiratory Rate 20 20 Blood Pressure Pulse Oximetry Oxygen Delivery Fraction of Inspired Oxygen 12/09/24 05:00 12/09/24 05:03 12/09/24 05:47 Temperature 100.9 F H Pulse Rate 80 81 81 Respiratory Rate 23 H 22 H Blood Pressure 138/94 H Pulse Oximetry 93 95 Oxygen Delivery Mechanical Ventilation Fraction of Inspired Oxygen 40 12/09/24 06:00 12/09/24 06:00 12/09/24 06:00 Temperature Pulse Rate 79 79 79 Respiratory Rate 22 H 22 H 22 H Blood Pressure Pulse Oximetry Oxygen Delivery Fraction of Inspired Oxygen 12/09/24 06:00 12/09/24 06:00 12/09/24 06:00 Temperature 100.7 F H Pulse Rate 79 76 76 Respiratory Rate 22 H 22 H Blood Pressure 131/89 Pulse Oximetry 94 Oxygen Delivery Fraction of Inspired Oxygen 12/09/24 06:41 12/09/24 07:29 12/09/24 07:30 Temperature Pulse Rate 77 78 78 Respiratory Rate 20 24 H Blood Pressure Pulse Oximetry 96 Oxygen Delivery Mechanical Ventilation Fraction of Inspired Oxygen 40 12/09/24 07:37 Temperature Pulse Rate 76 Respiratory Rate 25 H Blood Pressure Pulse Oximetry Oxygen Delivery Fraction of Inspired Oxygen Intake/Output Intake/Output: Intake & Output 12/06/24 12/07/24 12/08/24 12/09/24 23:59 23:59 23:59 23:59 Intake Total 2333.0 2027.0 1879.1 1369.0 Output Total 4655 3055 2105 575 Balance -2322.0 -1028.0 -225.9 794.0 Meds/Results Medications: Active Medications Generic Name Dose Route Start Last Admin Trade Name Freq PRN Reason Stop Dose Admin Acetaminophen 650 mg 11/26/24 14:25 12/07/24 04:00 Acetaminophen 325 Mg Tablet PO 650 mg Q6H PRN Administration Mild Pain (1-3) or Fever Acetylcysteine 200 mg 11/28/24 08:55 12/09/24 07:27 Acetylcysteine 20% Inhal Soln 800 Mg/4 Ml Vial INHALATION 200 mg Q6HRT EDMUNDO Administration Apixaban 5 mg 11/26/24 21:00 12/07/24 21:07 Apixaban 5 Mg Tablet PO 5 mg On Hold: 12/08/24 07:15 Q12HR EDMUNDO Administration Bisacodyl 10 mg 12/09/24 09:00 Bisacodyl 10 Mg Suppository RECTAL QAM [facility] Dextrose 12.5 gm 11/26/24 16:15 Dextrose 50% 25 Gm/50 Ml Syringe IV PUSH PRN PRN Hypoglycemia Protocol Glucagon 1 mg 11/26/24 16:15 Glucagon For Inj 1 Mg Vial IM PRN PRN Hypoglycemia Protocol Glucose 15 gm 11/26/24 16:15 Glucose Oral Gel 15 Gm Of Glucse In 37.5 Gm Tube PO PRN PRN Hypoglycemia Protocol Heparin Sodium (Porcine) 10,000 units 12/08/24 07:12 Heparin Sodium 5,000 Units/Ml Vial IV PUSH PRN PRN aPTT less than 55 seconds Heparin Sodium (Porcine) 5,000 units 12/08/24 07:12 12/09/24 05:19 Heparin Sodium 5,000 Units/Ml Vial IV PUSH 5,000 units PRN PRN Administration aPTT 55 - 70 seconds Dextrose 1,000 mls @ 100 mls/hr 11/26/24 16:15 Dextrose 5% 1,000 Ml IVPB PRN PRN Hypoglycemia Protocol Dexmedetomidine HCl 400 mcg in 100 mls @ 40 mls/hr 12/06/24 12:25 12/09/24 06:00 Precedex 400 Mcg/100 Ml IV CONT 0.8 mcg/kg/hr .Q2H30M EDMUNDO 40 mls/hr Protocol Administration 0.8 MCG/KG/HR Heparin Sodium/Dextrose 25,000 units in 250 mls @ 18 mls/hr 12/08/24 07:15 12/09/24 05:20 Heparin Sodium/D5w 100 Units/Ml IV CONT 1,800 units/hr .[id number] EDMUNDO 18 mls/hr Protocol Titration 1,800 UNITS/HR Levofloxacin/Dextrose 750 mg in 150 mls @ 100 mls/hr 12/08/24 09:00 12/08/24 10:37 Levaquin 750 Mg/D5w 150 Ml IVPB 12/11/24 10:29 Infused Q24H EDMUNDO Infusion Ibuprofen 400 mg/ Sodium 104 mls @ 208 mls/hr 12/08/24 13:16 12/09/24 02:26 Chloride IVPB 12/10/24 13:15 Infused Q6H PRN Infusion Fever >101 Metronidazole 500 mg in 100 mls @ 100 mls/hr 12/08/24 13:20 12/09/24 06:21 Flagyl 500 Mg/Iso Soln 100 Ml IVPB Infused Q8HR EDMUNDO Infusion Propofol 100 mls @ 6 mls/hr 12/08/24 16:20 12/09/24 06:41 Diprivan IV CONT 5 mcg/kg/min .[id number] EDMUNDO 6 mls/hr Protocol Titration 5 MCG/KG/MIN Insulin Aspart 3 - 6 units 11/28/24 06:50 12/09/24 05:32 Insulin Aspart (*Bkc) 100 Units/Ml SUB-Q Not Given Q6HR [facility] Protocol Insulin Glargine 25 units 12/01/24 09:00 12/07/24 08:34 Insulin Glargine (*Bkc) 100 Units/Ml SUB-Q 25 units On Hold: 12/08/24 07:18 QAM EDMUNDO Administration Ipratropium [place] 0.5 mg 11/29/24 08:00 12/09/24 07:26 Ipratropium Br 0.02% Inh Soln 0.5 Mg/2.5 Ml Vial INHALATION 0.5 mg Q6HRT EDMUNDO Administration Levalbuterol HCl 1.25 mg 11/29/24 20:00 12/09/24 07:26 Levalbuterol Neb 1.25 Mg/3 Ml INHALATION 1.25 mg Q6HRT EDMUNDO Administration Lubiprostone 24 mcg 12/08/24 17:00 12/08/24 18:36 Lubiprostone 24 Mcg Capsule PO Not Given BID EDMUNDO Multi-Ingred Cream/Lotion/Oil/Oint 1 applic 11/28/24 09:00 12/08/24 20:39 Mineral Oil/White Petrolatum Ointment EACH EYE 1 applic Q12HR EDMUNDO Administration Pantoprazole Sodium 40 mg 11/29/24 09:00 12/08/24 08:46 Pantoprazole Sodium Iv 40 Mg Vial IV PUSH 40 mg QAM EDMUNDO Administration Polyethylene Glycol 17 gm 12/08/24 13:35 12/09/24 05:21 Polyethylene Glycol 3350 17 Gm Powd.Pack PO 17 gm Q8HR EDMUNDO Administration Senna/Docusate Sodium 1 tab 12/06/24 21:00 12/07/24 21:07 Senna/Docusate Sodium Tablet PO 1 tab On Hold: 12/08/24 07:17 HS EDMUNDO Administration Sertraline HCl 50 mg 11/27/24 09:00 11/28/24 12:06 Sertraline Hcl 50 Mg Tablet PO 50 mg On Hold: 11/29/24 08:16 DAILY EDMUNDO Administration Sodium Chloride 10 ml 11/28/24 14:00 12/09/24 05:21 Central Line Flush IV PUSH 10 ml Q8HR EDMUNDO Administration Sodium Chloride 20 ml 11/28/24 11:53 12/03/24 05:31 Central Line Flush IV PUSH 20 ml PRN PRN Administration after blood draws Radiology Results: ITS Impressions Venous Doppler Study 12/07/24 13:02 IMPRESSION: 1: No lower extremity deep venous thrombosis. Labs Labs: Laboratory Results - last 24 hr 12/08/24 12/08/24 12/08/24 08:03 12:10 15:05 WBC RBC Hgb Hct MCV MCH MCHC RDW Plt Count MPV Immature Gran % (Auto) Neut % (Auto) Lymph % (Auto) [place] % (Auto) Eos % (Auto) Baso % (Auto) Lymph # (Auto) [place] # (Auto) Eos # (Auto) Baso # (Auto) Abs Immat Gran (auto) Absolute Neuts (auto) Absolute Nucleated RBC Nucleated RBC % PT 16.8 H INR 1.4 APTT 31.6 58.9 H Puncture Site ABG pH ABG pCO2 ABG pO2 ABG PO2/FiO2 Ratio ABG HCO3 ABG O2 Saturation ABG O2 Content ABG Base Excess A-a Gradient Oxyhemoglobin Carboxyhemoglobin Methemoglobin Reduced Hemoglobin Total Hemoglobin O2 Delivery Device O2 Liters/Min Minute Volume Vent Rate Vent Mode FiO2 Tidal Volume PEEP Peak Inspir Pressure Pressure Support Sodium Potassium Chloride Carbon Dioxide Anion Gap BUN Creatinine Estim Creat Clear Calc Estimated GFR Glucose POC Capillary Glucose 142 H Calcium Phosphorus Magnesium Total Bilirubin AST ALT Alkaline Phosphatase Total Protein Albumin Triglycerides 12/08/24 12/08/24 12/09/24 18:19 22:02 00:17 WBC RBC Hgb Hct MCV MCH MCHC RDW Plt Count MPV Immature Gran % (Auto) Neut % (Auto) Lymph % (Auto) [place] % (Auto) Eos % (Auto) Baso % (Auto) Lymph # (Auto) [place] # (Auto) Eos # (Auto) Baso # (Auto) Abs Immat Gran (auto) Absolute Neuts (auto) Absolute Nucleated RBC Nucleated RBC % PT INR APTT 106.7 H Puncture Site ABG pH ABG pCO2 ABG pO2 ABG PO2/FiO2 Ratio ABG HCO3 ABG O2 Saturation ABG O2 Content ABG Base Excess A-a Gradient Oxyhemoglobin Carboxyhemoglobin Methemoglobin Reduced Hemoglobin Total Hemoglobin O2 Delivery Device O2 Liters/Min Minute Volume Vent Rate Vent Mode FiO2 Tidal Volume PEEP Peak Inspir Pressure Pressure Support Sodium Potassium Chloride Carbon Dioxide Anion Gap BUN Creatinine Estim Creat Clear Calc Estimated GFR Glucose POC Capillary Glucose 160 H 158 H Calcium Phosphorus Magnesium Total Bilirubin AST ALT Alkaline Phosphatase Total Protein Albumin Triglycerides 12/09/24 12/09/24 04:43 04:55 WBC 8.2 RBC 5.06 Hgb 13.7 L Hct 44.5 MCV 87.9 MCH 27.1 MCHC 30.8 L RDW 16.2 H Plt Count 187 MPV 10.0 Immature Gran % (Auto) 0.5 Neut % (Auto) 65.0 Lymph % (Auto) 22.4 [place] % (Auto) 9.3 H Eos % (Auto) 2.4 Baso % (Auto) 0.4 Lymph # (Auto) 1.83 [place] # (Auto) 0.8 H Eos # (Auto) 0.2 Baso # (Auto) 0.0 Abs Immat Gran (auto) 0.04 H Absolute Neuts (auto) 5.3 Absolute Nucleated RBC 0.000 Nucleated RBC % 0.0 PT INR APTT 57.7 H Puncture Site [place] ABG pH 7.490 H ABG pCO2 42.6 ABG pO2 68.1 L ABG PO2/FiO2 Ratio 1.70 ABG HCO3 31.7 H ABG O2 Saturation 94.8 L ABG O2 Content 18.9 ABG Base Excess 7.6 A-a Gradient 168.1 Oxyhemoglobin 92.8 Carboxyhemoglobin 0.9 Methemoglobin 0.0 Reduced Hemoglobin 6.3 H Total Hemoglobin 14.5 O2 Delivery Device Ventilator O2 Liters/Min Not Reportable Minute Volume Not Reportable Vent Rate 20 Vent Mode Cmv FiO2 40 Tidal Volume 450 PEEP 10 Peak Inspir Pressure Not Reportable Pressure Support Not Reportable Sodium 135 L Potassium 3.9 Chloride 96 L Carbon Dioxide 33 H Anion Gap 6 BUN 34 H Creatinine 0.80 Estim Creat Clear Calc 142 Estimated GFR > 60 Glucose 158 H POC Capillary Glucose Calcium 8.5 Phosphorus 4.3 Magnesium 1.6 Total Bilirubin 1.1 AST 39 ALT 32 Alkaline Phosphatase 126 Total Protein 6.8 Albumin 3.1 L Triglycerides 95 Quality VTE Prophylaxis VTE prophylaxis: pharmacologic ordered
[2024-12-09] MEDS: MAGNESIUM SULF 2 GM/WATER 50ML 2 GM/50 ML BAG IVPB (08:40)
[2024-12-09] MEDS: PANTOPRAZOLE SODIUM IV 40 MG VIAL IV PUSH (08:41)
[2024-12-09] MEDS: BISACODYL 10 MG SUPPOSITORY RECTAL (08:41)
[2024-12-09] MEDS: levoFLOXacin 750 MG/D5W 150 ML 750 MG/150 ML BAG 100 MG IVPB (08:41)
[2024-12-09] MEDS: MINERAL OIL/WHITE PETROLATUM OINTMENT 1 APPLIC EACH EYE ×2 (08:42→20:16)
--- NOTE | 2024-12-09 10:36 | PCNFU ---
Nutrition Follow-Up Complete: Suboptimal Energy Intake as related to mechanical vent as evidenced by NPO. Meet estimated nutritional needs - Not progressing right now. NPO with tube feeds on hold because of ileus. Continue progress to goal when medically able to progress diet Goal: Pt current nutrition is NPO. Nutrition recommendation: NPO until medically able to advance diet. Bowel regimen in place, Last recorded weight is 192.5 kg. Bowel Motility: No BMs because of ileus Labs Reviewed: Hgb 137, Alb 3.1, Na 135, BUN 34 Meds Noted: Precedex, propofol @ 6 ml/h to provide 158 kcal, Lasix, miralax, lactulose, senna Skin: No skin issues Additional Notes: Pt remains NPO because of ileus. Continues on mechanical vent with sedation. Plan for probable trach and PEG. Agree with current nutrition care plan and orders. Will monitor weight, labs, skin, diet orders, meds every Thursday and Thursday.
[2024-12-09] MEDS: VANCOMYCIN 1,250 MG/NS 250 ML 1,250 MG/250 ML BAG 166.67 MG IVPB ×2 (10:40→12:09)
[2024-12-09] MEDS: ROCURONIUM BROMIDE 50 MG/5 ML VIAL IV PUSH (10:43)
[2024-12-09] MEDS: ETOMIDATE 20 MG/10 ML AMPUL 30 MG IV PUSH (10:43)
--- NOTE | 2024-12-09 11:40 | WPDIDCN ---
Assessment and Plan Assessment and plan (1) Fever: Code(s): R50.9 - Fever, unspecified Status: Acute Assessment and Plan: -Differential diagnosis includes worsening pneumonia vs. septicemia vs. mucous plugging vs. atelectasis vs. ileus vs. other (2) Pseudomonas respiratory infection: Code(s): J98.8 - Other specified respiratory disorders; B96.5 - Pseudomonas (aeruginosa) (mallei) (pseudomallei) as the cause of diseases classified elsewhere Status: Acute Assessment and Plan: -Pseudomonas aeruginosa bibasilar pneumonia -Treatment with Levofloxacin since 11/29/24 (3) Pneumonia: Code(s): J18.9 - Pneumonia, unspecified organism Status: Acute Assessment and Plan: Bibasilar pneumonia noted on admission (4) Ileus: Code(s): K56.7 - Ileus, unspecified Status: Acute Assessment and Plan: -NG tube decompression -General Surgery consulted and managing ileus (5) Acute on chronic respiratory failure with hypoxia and hypercapnia: Code(s): J96.21 - Acute and chronic respiratory failure with hypoxia; J96.22 - Acute and chronic respiratory failure with hypercapnia Status: Acute Assessment and Plan: -Intubated on 11/29/24 -Management as per Pulm/CC service (6) COPD exacerbation: Code(s): J44.1 - Chronic obstructive pulmonary disease with (acute) exacerbation Status: Acute Assessment and Plan: -Management as per Pulm/CC service (7) Hypotension: Code(s): I95.9 - Hypotension, unspecified Status: Acute Assessment and Plan: -Sepsis vs. other -Management as per ICU service Plan -Await repeat sputum and blood cultures -Continue Vancomycin IV for now -Change Levofloxacin/Metronidazole IV to Meropenem for coverage of pneumonia, possible MDRO, etc -Follow CBC and renal function -Ventilator management as per ICU service -Discussed with [employer]acht [employer] and ICU nurse Patient was seen via video telehealth consultation with the assistance of staff. Chart, data, and patient independently reviewed. Patient was located at [facility] while I was located in my [place] office. HPI Data of Consult Date/Time: 12/09/24 11:40 Requesting Physician: Ny Jones DO Primary Care Provider: Manish Crokos, Consult Narrative Reason for consult: fever Narrative: Aman Newberry is a 64 year old male with morbid obesity, KATIE, COPD who was admitted about two weeks ago with shortness of breath and dyspnea on exertion. He was diagnosed with COPD exacerbation with respiratory failure. He was initially treated with AVAPS but developed worsening hypoxia and was intubated. Sputum culture on 11/29/24 grew Pseudomonas aeruginosa for which he was treated with Cefepime for about one week and then transitioned to Levofloxacin. He had also received Vancomycin IV initially as nasal MRSA PCR was positive on admission He was noted to have abdominal distension and was diagnosed with an ileus. He was febrile to 100.9F and Metronidazole IV was added Review of Systems Review of Systems: ROS unobtainable: Yes unobtainable due to endotracheal tube, unobtainable due to medical condition and unobtainable due to mental status PMFSH Past Medical History Medical History Class 3 severe obesity with body mass index (BMI) of 60.0 to 69.9 in adult Chronic respiratory failure with hypoxia and hypercapnia On home O2 Eczema KATIE (obstructive sleep apnea) With prior sleep study in 2011 recommend a BiPAP of 25/20 Type 2 diabetes mellitus COPD (chronic obstructive pulmonary disease) HLD (hyperlipidemia) Essential hypertension Surgical History Surgical History History of back surgery Status post surgery of both feet Family History Family History (Updated 11/26/24 @ 09:23 by Martha Garcia RN) Mother Hypertension Father Emphysema lung Social History Social History Smoking packs per day: 1.5 Smoking cigarettes per day: 30.0 Years smoked: 12 Smoking pack-years: 18.00 Smoking status: Former smoker Tobacco type: cigarettes Second hand tobacco smoke exposure: Yes Smoking end date: 03/16/14 Alcohol intake: never Substance use: never Substance use type: does not use Do You Feel Safe in your Home?: Yes Lack of Transportation: YES Lack of Food: Never True Current Housing: I Have Housing Concerned About Future Housing: No Difficulty Paying Gas/Electric Bills: No Difficulty Paying for Meds: No Currently Unemployed: No Education: Associate Degree Difficulty w/ Childcare or Family Care: No Spiritual care concerns: No Meds Home Medications and Allergies Home Medications ?Medication ?Instructions ?Recorded ?Confirmed ?Type yiwzclug-kr-[id number] 300 mcg-K 60 1 tablet PO DAILY 05/13/19 11/26/24 History mcg-lycop 600 mcg-lutein 300 mcg tablet (Centrum Silver Men) Held on 11/26/24. Instructions: Patient no longer taking sertraline 50 mg tablet 50 mg PO DAILY #90 tabs 11/14/19 11/26/24 Rx amlodipine 10 mg tablet 10 mg PO DAILY #90 tabs 03/02/20 11/26/24 Rx Held on 11/26/24. Instructions: Patient no longer taking lisinopril 40 mg tablet See Rx Instructions .Route 01/01/22 11/26/24 Rx .COMPLEX #30 tabs metformin 1,000 mg tablet 1,000 mg PO BID 07/20/24 11/26/24 History apixaban 5 mg tablet (Eliquis) 5 mg PO Q12HR #30 tabs 07/24/24 11/26/24 Rx Held on 11/26/24. Instructions: Patient no longer taking bacitracin 500 unit/gram topical 1 applic topical Q12HR #30 grams 07/24/24 11/26/24 Rx ointment Held on 11/26/24. Instructions: Patient no longer taking furosemide 40 mg tablet 40 mg PO BID #30 tabs 07/24/24 11/26/24 Rx guaifenesin 600 mg tablet, 1,200 mg (2 x 600 mg) PO Q12HR #30 07/24/24 11/26/24 Rx extended release 12 hr (Mucus tabs Relief ER) levalbuterol HCl 1.25 mg/3 mL 1.25 mg (3 mL) inhalation Q4HRT 07/24/24 11/26/24 Rx solution for nebulization PRN shortness of breath or wheezing #30 mL umeclidinium 62.5 mcg-vilanterol 1 inh inhalation DAILY #60 ea 07/24/24 11/26/24 Rx 25 mcg/actuation powdr for inhalation (Anoro Ellipta) Allergies Allergy/AdvReac Type Severity Reaction Status Date / Time tramadol AdvReac urinary Verified 11/26/24 11:11 retention Vital Signs Vital Signs - 24 hr 12/08/24 12:00 12/08/24 12:00 12/08/24 12:00 Temperature 100.9 F H Pulse Rate 74 74 73 Respiratory Rate 20 20 Blood Pressure 151/92 H Pulse Oximetry 96 Oxygen Delivery Fraction of Inspired Oxygen 12/08/24 12:00 12/08/24 12:00 12/08/24 12:31 Temperature Pulse Rate 80 Respiratory Rate 20 Blood Pressure Pulse Oximetry 96 Oxygen Delivery Mechanical Ventilation Fraction of Inspired Oxygen 30 40 12/08/24 12:31 12/08/24 13:00 12/08/24 13:13 Temperature 101.1 F H Pulse Rate 80 75 74 Respiratory Rate 20 16 Blood Pressure 166/100 H Pulse Oximetry 97 94 Oxygen Delivery Mechanical Ventilation Fraction of Inspired Oxygen 40 12/08/24 13:13 12/08/24 13:28 12/08/24 14:00 Temperature 101.2 F H Pulse Rate 74 76 76 Respiratory Rate 23 H 24 H 18 Blood Pressure 174/100 H Pulse Oximetry 100 Oxygen Delivery Fraction of Inspired Oxygen 12/08/24 14:00 12/08/24 14:27 12/08/24 14:49 Temperature 101.0 F H Pulse Rate 76 81 Respiratory Rate 18 Blood Pressure Pulse Oximetry Oxygen Delivery Fraction of Inspired Oxygen 12/08/24 14:49 12/08/24 15:00 12/08/24 15:21 Temperature 101.1 F H Pulse Rate 81 84 89 Respiratory Rate 18 20 22 H Blood Pressure 137/104 H Pulse Oximetry 100 Oxygen Delivery Fraction of Inspired Oxygen 12/08/24 15:27 12/08/24 15:45 12/08/24 16:00 Temperature 100.8 F H 100.9 F H Pulse Rate 80 84 Respiratory Rate 15 18 Blood Pressure 131/100 H Pulse Oximetry 100 Oxygen Delivery Fraction of Inspired Oxygen 12/08/24 16:00 12/08/24 16:00 12/08/24 16:00 Temperature Pulse Rate 83 Respiratory Rate Blood Pressure Pulse Oximetry 96 Oxygen Delivery Mechanical Ventilation Fraction of Inspired Oxygen 30 40 12/08/24 16:13 12/08/24 16:20 12/08/24 16:25 Temperature Pulse Rate 82 90 84 Respiratory Rate 19 22 H Blood Pressure Pulse Oximetry 100 Oxygen Delivery Mechanical Ventilation Fraction of Inspired Oxygen 40 12/08/24 16:37 12/08/24 16:37 12/08/24 17:00 Temperature 100.8 F H Pulse Rate 86 86 74 Respiratory Rate 18 18 16 Blood Pressure 127/92 H Pulse Oximetry 100 Oxygen Delivery Fraction of Inspired Oxygen 12/08/24 17:17 12/08/24 18:00 12/08/24 18:00 Temperature Pulse Rate 81 76 76 Respiratory Rate 20 20 Blood Pressure Pulse Oximetry 100 Oxygen Delivery Mechanical Ventilation Fraction of Inspired Oxygen 40 12/08/24 18:00 12/08/24 18:00 12/08/24 18:00 Temperature 100.8 F H Pulse Rate 75 75 76 Respiratory Rate 20 20 Blood Pressure 143/101 H Pulse Oximetry 100 Oxygen Delivery Fraction of Inspired Oxygen 12/08/24 18:32 12/08/24 19:00 12/08/24 19:53 Temperature 100.7 F H Pulse Rate 72 72 68 Respiratory Rate 20 20 20 Blood Pressure 138/85 Pulse Oximetry 100 Oxygen Delivery Fraction of Inspired Oxygen 12/08/24 19:53 12/08/24 20:00 12/08/24 20:00 Temperature Pulse Rate 68 69 66 Respiratory Rate 20 20 20 Blood Pressure Pulse Oximetry Oxygen Delivery Fraction of Inspired Oxygen 12/08/24 20:00 12/08/24 20:00 12/08/24 20:00 Temperature 100.8 F H Pulse Rate 72 70 Respiratory Rate 20 20 Blood Pressure 135/86 Pulse Oximetry 100 100 Oxygen Delivery Mechanical Ventilation Fraction of Inspired Oxygen 40 40 12/08/24 20:00 12/08/24 20:05 12/08/24 20:06 Temperature Pulse Rate 70 66 69 Respiratory Rate 20 Blood Pressure Pulse Oximetry 100 Oxygen Delivery Mechanical Ventilation Fraction of Inspired Oxygen 40 12/08/24 20:24 12/08/24 20:32 12/08/24 21:00 Temperature 100.8 F H Pulse Rate 68 70 73 Respiratory Rate 20 20 22 H Blood Pressure 133/87 Pulse Oximetry 100 Oxygen Delivery Fraction of Inspired Oxygen 12/08/24 21:08 12/08/24 21:43 12/08/24 21:43 Temperature Pulse Rate 76 70 70 Respiratory Rate 28 H 20 20 Blood Pressure Pulse Oximetry Oxygen Delivery Fraction of Inspired Oxygen 12/08/24 22:00 12/08/24 22:00 12/08/24 22:00 Temperature 100.6 F H Pulse Rate 73 73 73 Respiratory Rate 20 20 20 Blood Pressure 125/91 H Pulse Oximetry 100 Oxygen Delivery Fraction of Inspired Oxygen 12/08/24 22:00 12/08/24 23:00 12/08/24 23:11 Temperature 100.6 F H Pulse Rate 73 72 67 Respiratory Rate 20 Blood Pressure 134/89 Pulse Oximetry 100 100 Oxygen Delivery Mechanical Ventilation Fraction of Inspired Oxygen 40 12/08/24 23:47 12/08/24 23:47 12/08/24 23:51 Temperature Pulse Rate 66 66 72 Respiratory Rate 20 20 20 Blood Pressure Pulse Oximetry Oxygen Delivery Fraction of Inspired Oxygen 12/08/24 23:51 12/09/24 00:00 12/09/24 00:00 Temperature Pulse Rate 72 65 65 Respiratory Rate 20 20 20 Blood Pressure Pulse Oximetry Oxygen Delivery Fraction of Inspired Oxygen 12/09/24 00:00 12/09/24 00:00 12/09/24 00:00 Temperature 100.7 F H Pulse Rate 65 65 Respiratory Rate 20 20 Blood Pressure 129/83 Pulse Oximetry 100 100 Oxygen Delivery Mechanical Ventilation Fraction of Inspired Oxygen 40 40 12/09/24 00:00 12/09/24 01:00 12/09/24 01:29 Temperature 100.9 F H Pulse Rate 65 67 68 Respiratory Rate 20 20 Blood Pressure 101/64 Pulse Oximetry 100 Oxygen Delivery Fraction of Inspired Oxygen 12/09/24 01:44 12/09/24 01:44 12/09/24 01:53 Temperature Pulse Rate 70 69 69 Respiratory Rate 26 H 20 Blood Pressure Pulse Oximetry 96 Oxygen Delivery Mechanical Ventilation Fraction of Inspired Oxygen 40 12/09/24 01:53 12/09/24 01:56 12/09/24 02:00 Temperature 101.1 F H 101.1 F H Pulse Rate 69 73 Respiratory Rate 20 21 H Blood Pressure 137/85 Pulse Oximetry 94 Oxygen Delivery Fraction of Inspired Oxygen 12/09/24 02:00 12/09/24 02:00 12/09/24 02:00 Temperature Pulse Rate 73 73 73 Respiratory Rate 21 H 21 H Blood Pressure Pulse Oximetry Oxygen Delivery Fraction of Inspired Oxygen 12/09/24 02:56 12/09/24 03:00 12/09/24 03:54 Temperature 100.9 F H 100.8 F H Pulse Rate 78 78 Respiratory Rate 21 H 20 Blood Pressure 142/92 H Pulse Oximetry 93 Oxygen Delivery Fraction of Inspired Oxygen 12/09/24 03:54 12/09/24 04:00 12/09/24 04:00 Temperature Pulse Rate 78 79 Respiratory Rate 20 20 Blood Pressure Pulse Oximetry 95 Oxygen Delivery Mechanical Ventilation Fraction of Inspired Oxygen 40 40 12/09/24 04:00 12/09/24 04:00 12/09/24 04:00 Temperature 100.8 F H Pulse Rate 79 65 65 Respiratory Rate 20 20 20 Blood Pressure 136/94 H Pulse Oximetry 95 Oxygen Delivery Fraction of Inspired Oxygen 12/09/24 04:00 12/09/24 05:00 12/09/24 05:03 Temperature 100.9 F H Pulse Rate 73 80 81 Respiratory Rate 23 H Blood Pressure 138/94 H Pulse Oximetry 93 95 Oxygen Delivery Mechanical Ventilation Fraction of Inspired Oxygen 40 12/09/24 05:47 12/09/24 06:00 12/09/24 06:00 Temperature Pulse Rate 81 79 79 Respiratory Rate 22 H 22 H 22 H Blood Pressure Pulse Oximetry Oxygen Delivery Fraction of Inspired Oxygen 12/09/24 06:00 12/09/24 06:00 12/09/24 06:00 Temperature 100.7 F H Pulse Rate 79 79 76 Respiratory Rate 22 H 22 H 22 H Blood Pressure 131/89 Pulse Oximetry 94 Oxygen Delivery Fraction of Inspired Oxygen 12/09/24 06:00 12/09/24 06:41 12/09/24 07:00 Temperature 100.9 F H Pulse Rate 76 77 77 Respiratory Rate 20 23 H Blood Pressure 131/87 Pulse Oximetry 95 Oxygen Delivery Fraction of Inspired Oxygen 12/09/24 07:29 12/09/24 07:30 12/09/24 07:37 Temperature Pulse Rate 78 78 76 Respiratory Rate 24 H 25 H Blood Pressure Pulse Oximetry 96 Oxygen Delivery Mechanical Ventilation Fraction of Inspired Oxygen 40 12/09/24 08:00 12/09/24 08:00 12/09/24 08:00 Temperature 101 F H Pulse Rate 82 82 83 Respiratory Rate 29 H 29 H 29 H Blood Pressure 127/84 Pulse Oximetry 94 Oxygen Delivery Fraction of Inspired Oxygen 12/09/24 08:00 12/09/24 08:00 12/09/24 08:00 Temperature Pulse Rate 85 Respiratory Rate Blood Pressure Pulse Oximetry 94 Oxygen Delivery Mechanical Ventilation Fraction of Inspired Oxygen 40 40 12/09/24 08:30 12/09/24 08:39 12/09/24 09:00 Temperature 100.9 F H Pulse Rate 90 90 86 Respiratory Rate 29 H 29 H 21 H Blood Pressure 91/64 L Pulse Oximetry 90 Oxygen Delivery Fraction of Inspired Oxygen 12/09/24 10:00 12/09/24 10:00 12/09/24 10:57 Temperature Pulse Rate 75 79 74 Respiratory Rate 25 H Blood Pressure Pulse Oximetry 96 Oxygen Delivery Mechanical Ventilation Fraction of Inspired Oxygen 40 12/09/24 11:05 12/09/24 11:05 Temperature Pulse Rate 82 82 Respiratory Rate 24 H 24 H Blood Pressure Pulse Oximetry Oxygen Delivery Fraction of Inspired Oxygen Exam Narrative: Gen: intubated, sedated HEENT: ETT in place, NG tube in place Pulm: on ventilator Abd: obese Ext: 1+ lower extremity edema Lines: Right IJV catheter Results Labs 12/09/24 04:43 12/09/24 04:43 Labs: Short CBC 12/09/24 Range/Units 04:43 WBC 8.2 (4.5-10.0) K/mm3 Hgb 13.7 L (14.0-18.0) g/dL Hct 44.5 (42.0-52.0) % Plt Count 187 (150-375) k/mm3 BMP 12/09/24 04:43 Sodium 135 L Potassium 3.9 Chloride 96 L Carbon Dioxide 33 H BUN 34 H Creatinine 0.80 Glucose 158 H Calcium 8.5 Liver Function 12/09/24 Range/Units 04:43 Total Bilirubin 1.1 (0.2-1.3) mg/dL AST 39 (17-59) U/L ALT 32 (6-50) U/L Alkaline Phosphatase 126 (38-126) U/L Albumin 3.1 L (3.5-5.1) g/dL
[2024-12-09 12:12] LABS: Partial Thromboplastin Time 64.4 Seconds (22.3-36.8)
[2024-12-09] MEDS: HEPARIN SOD/D5W 100 UNITS/ML 25,000 UNITS/250 ML BAG 21 UNITS IV CONT (14:39)
[2024-12-09] MEDS: MEROPENEM 1 GM in SODIUM CHLORIDE 0.9% IV 100 ML 200 ML IVPB ×2 (14:40→22:21)
--- NOTE | 2024-12-09 16:19 | WPDGIPROGNO ---
Progress Note: A&P Assessment and Plan (1) Chronic constipation: Code(s): K59.09 - Other constipation Status: Acute Assessment and Plan: on miralax, marcelino will add linzess instead of amitiza primary also spoke with family and plan for trac and peg early next week due to prolonged intubation and respiratory failure (2) Acute hypoxic respiratory failure: Code(s): J96.01 - Acute respiratory failure with hypoxia Status: Acute (3) Class 3 severe obesity with body mass index (BMI) of 60.0 to 69.9 in adult: Qualifiers: Obesity type: due to excess calories Serious obesity comorbidity presence: with serious comorbidity Qualified Code(s): E66.813 - Obesity, class 3; Z68.44 - Body mass index [BMI] 60.0-69.9, adult Code(s): E66.813 - Obesity, class 3; Z68.44 - Body mass index [BMI] 60.0-69.9, adult Status: Acute (4) Pneumonia: Code(s): J18.9 - Pneumonia, unspecified organism Status: Acute (5) Atrial fibrillation with RVR: Code(s): I48.91 - Unspecified atrial fibrillation Status: Acute Subjective Date/time seen: 12/09/24 16:19 Interval history: still no BM he is intubated, low grade fever on miralax amitiza can not be crushed therefore is not given through NGT Review of Systems Review of Systems: All systems reviewed & are unremarkable except as noted in HPI and below Exam Narrative: General: Significantly obese gentleman, currently intubated, sedated in no acute distress HEENT:? Pupils equal and reactive, sclera is clear, ETT in place Neck:? Thick and short neck Respiratory:? Decreased air entry bilaterally, no wheezing. Chest: Left breast is larger than the right, induration, erythema and warmth has improved Cardiac:? Distant heart sounds, irregularly irregular Abdomen:? Morbidly obese, distended, no rebound Extremities:? Edema is improving in bilateral lower extremities Neuro:? Patient is intubated, on Precedex moves all extremities spontaneously Skin:? Bruising noted on upper extremities, also chronic venous stasis changes on bilateral lower extremity Psych:? Unable to assess at this time Objective Data Vital Signs Vital Signs: Vital Signs - 24 hr 12/08/24 16:20 12/08/24 16:25 12/08/24 16:37 Temperature Pulse Rate 90 84 86 Respiratory Rate 22 H 18 Blood Pressure Pulse Oximetry 100 Oxygen Delivery Mechanical Ventilation Fraction of Inspired Oxygen 40 12/08/24 16:37 12/08/24 17:00 12/08/24 17:17 Temperature 100.8 F H Pulse Rate 86 74 81 Respiratory Rate 18 16 Blood Pressure 127/92 H Pulse Oximetry 100 100 Oxygen Delivery Mechanical Ventilation Fraction of Inspired Oxygen 40 12/08/24 18:00 12/08/24 18:00 12/08/24 18:00 Temperature Pulse Rate 76 76 75 Respiratory Rate 20 20 Blood Pressure Pulse Oximetry Oxygen Delivery Fraction of Inspired Oxygen 12/08/24 18:00 12/08/24 18:00 12/08/24 18:32 Temperature 100.8 F H Pulse Rate 75 76 72 Respiratory Rate 20 20 20 Blood Pressure 143/101 H Pulse Oximetry 100 Oxygen Delivery Fraction of Inspired Oxygen 12/08/24 19:00 12/08/24 19:53 12/08/24 19:53 Temperature 100.7 F H Pulse Rate 72 68 68 Respiratory Rate 20 20 20 Blood Pressure 138/85 Pulse Oximetry 100 Oxygen Delivery Fraction of Inspired Oxygen 12/08/24 20:00 12/08/24 20:00 12/08/24 20:00 Temperature 100.8 F H Pulse Rate 69 66 72 Respiratory Rate 20 20 20 Blood Pressure 135/86 Pulse Oximetry 100 Oxygen Delivery Fraction of Inspired Oxygen 12/08/24 20:00 12/08/24 20:00 12/08/24 20:00 Temperature Pulse Rate 70 70 Respiratory Rate 20 Blood Pressure Pulse Oximetry 100 Oxygen Delivery Mechanical Ventilation Fraction of Inspired Oxygen 40 40 12/08/24 20:05 12/08/24 20:06 12/08/24 20:24 Temperature Pulse Rate 66 69 68 Respiratory Rate 20 20 Blood Pressure Pulse Oximetry 100 Oxygen Delivery Mechanical Ventilation Fraction of Inspired Oxygen 40 12/08/24 20:32 12/08/24 21:00 12/08/24 21:08 Temperature 100.8 F H Pulse Rate 70 73 76 Respiratory Rate 20 22 H 28 H Blood Pressure 133/87 Pulse Oximetry 100 Oxygen Delivery Fraction of Inspired Oxygen 12/08/24 21:43 12/08/24 21:43 12/08/24 22:00 Temperature 100.6 F H Pulse Rate 70 70 73 Respiratory Rate 20 20 20 Blood Pressure 125/91 H Pulse Oximetry 100 Oxygen Delivery Fraction of Inspired Oxygen 12/08/24 22:00 12/08/24 22:00 12/08/24 22:00 Temperature Pulse Rate 73 73 73 Respiratory Rate 20 20 Blood Pressure Pulse Oximetry Oxygen Delivery Fraction of Inspired Oxygen 12/08/24 23:00 12/08/24 23:11 12/08/24 23:47 Temperature 100.6 F H Pulse Rate 72 67 66 Respiratory Rate 20 20 Blood Pressure 134/89 Pulse Oximetry 100 100 Oxygen Delivery Mechanical Ventilation Fraction of Inspired Oxygen 40 12/08/24 23:47 12/08/24 23:51 12/08/24 23:51 Temperature Pulse Rate 66 72 72 Respiratory Rate 20 20 20 Blood Pressure Pulse Oximetry Oxygen Delivery Fraction of Inspired Oxygen 12/09/24 00:00 12/09/24 00:00 12/09/24 00:00 Temperature Pulse Rate 65 65 65 Respiratory Rate 20 20 20 Blood Pressure Pulse Oximetry 100 Oxygen Delivery Mechanical Ventilation Fraction of Inspired Oxygen 40 12/09/24 00:00 12/09/24 00:00 12/09/24 00:00 Temperature 100.7 F H Pulse Rate 65 65 Respiratory Rate 20 Blood Pressure 129/83 Pulse Oximetry 100 Oxygen Delivery Fraction of Inspired Oxygen 40 12/09/24 01:00 12/09/24 01:29 12/09/24 01:44 Temperature 100.9 F H Pulse Rate 67 68 70 Respiratory Rate 20 20 26 H Blood Pressure 101/64 Pulse Oximetry 100 Oxygen Delivery Fraction of Inspired Oxygen 12/09/24 01:44 12/09/24 01:53 12/09/24 01:53 Temperature Pulse Rate 69 69 69 Respiratory Rate 20 20 Blood Pressure Pulse Oximetry 96 Oxygen Delivery Mechanical Ventilation Fraction of Inspired Oxygen 40 12/09/24 01:56 12/09/24 02:00 12/09/24 02:00 Temperature 101.1 F H 101.1 F H Pulse Rate 73 73 Respiratory Rate 21 H 21 H Blood Pressure 137/85 Pulse Oximetry 94 Oxygen Delivery Fraction of Inspired Oxygen 12/09/24 02:00 12/09/24 02:00 12/09/24 02:56 Temperature 100.9 F H Pulse Rate 73 73 Respiratory Rate 21 H Blood Pressure Pulse Oximetry Oxygen Delivery Fraction of Inspired Oxygen 12/09/24 03:00 12/09/24 03:54 12/09/24 03:54 Temperature 100.8 F H Pulse Rate 78 78 78 Respiratory Rate 21 H 20 20 Blood Pressure 142/92 H Pulse Oximetry 93 Oxygen Delivery Fraction of Inspired Oxygen 12/09/24 04:00 12/09/24 04:00 12/09/24 04:00 Temperature 100.8 F H Pulse Rate 79 79 Respiratory Rate 20 20 Blood Pressure 136/94 H Pulse Oximetry 95 95 Oxygen Delivery Mechanical Ventilation Fraction of Inspired Oxygen 40 40 12/09/24 04:00 12/09/24 04:00 12/09/24 04:00 Temperature Pulse Rate 65 65 73 Respiratory Rate 20 20 Blood Pressure Pulse Oximetry Oxygen Delivery Fraction of Inspired Oxygen 12/09/24 05:00 12/09/24 05:03 12/09/24 05:47 Temperature 100.9 F H Pulse Rate 80 81 81 Respiratory Rate 23 H 22 H Blood Pressure 138/94 H Pulse Oximetry 93 95 Oxygen Delivery Mechanical Ventilation Fraction of Inspired Oxygen 40 12/09/24 06:00 12/09/24 06:00 12/09/24 06:00 Temperature Pulse Rate 79 79 79 Respiratory Rate 22 H 22 H 22 H Blood Pressure Pulse Oximetry Oxygen Delivery Fraction of Inspired Oxygen 12/09/24 06:00 12/09/24 06:00 12/09/24 06:00 Temperature 100.7 F H Pulse Rate 79 76 76 Respiratory Rate 22 H 22 H Blood Pressure 131/89 Pulse Oximetry 94 Oxygen Delivery Fraction of Inspired Oxygen 12/09/24 06:41 12/09/24 07:00 12/09/24 07:29 Temperature 100.9 F H Pulse Rate 77 77 78 Respiratory Rate 20 23 H 24 H Blood Pressure 131/87 Pulse Oximetry 95 Oxygen Delivery Fraction of Inspired Oxygen 12/09/24 07:30 12/09/24 07:37 12/09/24 08:00 Temperature Pulse Rate 78 76 82 Respiratory Rate 25 H 29 H Blood Pressure Pulse Oximetry 96 Oxygen Delivery Mechanical Ventilation Fraction of Inspired Oxygen 40 12/09/24 08:00 12/09/24 08:00 12/09/24 08:00 Temperature 101 F H Pulse Rate 82 83 Respiratory Rate 29 H 29 H Blood Pressure 127/84 Pulse Oximetry 94 94 Oxygen Delivery Mechanical Ventilation Fraction of Inspired Oxygen 40 12/09/24 08:00 12/09/24 08:00 12/09/24 08:30 Temperature Pulse Rate 85 90 Respiratory Rate 29 H Blood Pressure Pulse Oximetry Oxygen Delivery Fraction of Inspired Oxygen 40 12/09/24 08:39 12/09/24 09:00 12/09/24 10:00 Temperature 100.9 F H Pulse Rate 90 86 75 Respiratory Rate 29 H 21 H 25 H Blood Pressure 91/64 L Pulse Oximetry 90 Oxygen Delivery Fraction of Inspired Oxygen 12/09/24 10:00 12/09/24 10:00 12/09/24 10:00 Temperature 100.8 F H Pulse Rate 79 81 83 Respiratory Rate 23 H 25 H Blood Pressure 116/105 H Pulse Oximetry 96 Oxygen Delivery Fraction of Inspired Oxygen 12/09/24 10:57 12/09/24 11:00 12/09/24 11:05 Temperature 100.8 F H Pulse Rate 74 79 82 Respiratory Rate 23 H 24 H Blood Pressure 140/86 Pulse Oximetry 96 95 Oxygen Delivery Mechanical Ventilation Fraction of Inspired Oxygen 40 12/09/24 11:05 12/09/24 12:00 12/09/24 12:00 Temperature Pulse Rate 82 69 69 Respiratory Rate 24 H 25 H 25 H Blood Pressure Pulse Oximetry Oxygen Delivery Fraction of Inspired Oxygen 12/09/24 12:00 12/09/24 12:00 12/09/24 12:00 Temperature Pulse Rate 74 Respiratory Rate Blood Pressure Pulse Oximetry 98 Oxygen Delivery Mechanical Ventilation Fraction of Inspired Oxygen 40 40 12/09/24 12:00 12/09/24 13:00 12/09/24 13:21 Temperature 100.5 F H 100.5 F H Pulse Rate 68 76 64 Respiratory Rate 20 22 H 20 Blood Pressure 138/87 136/95 H Pulse Oximetry 97 96 Oxygen Delivery Fraction of Inspired Oxygen 12/09/24 13:22 12/09/24 13:32 12/09/24 13:32 Temperature Pulse Rate 68 66 66 Respiratory Rate 20 20 Blood Pressure Pulse Oximetry 96 Oxygen Delivery Mechanical Ventilation Fraction of Inspired Oxygen 40 12/09/24 14:00 12/09/24 14:00 12/09/24 14:00 Temperature 100.3 F H Pulse Rate 79 79 79 Respiratory Rate 26 H 26 H Blood Pressure 145/102 H Pulse Oximetry 98 Oxygen Delivery Fraction of Inspired Oxygen 12/09/24 14:00 12/09/24 16:00 12/09/24 16:01 Temperature Pulse Rate 79 78 78 Respiratory Rate 26 H 23 H 23 H Blood Pressure Pulse Oximetry Oxygen Delivery Fraction of Inspired Oxygen 12/09/24 16:01 Temperature Pulse Rate 78 Respiratory Rate 23 H Blood Pressure Pulse Oximetry Oxygen Delivery Fraction of Inspired Oxygen Intake/Output Intake/Output: Intake & Output 12/06/24 12/07/24 12/08/24 12/09/24 23:59 23:59 23:59 23:59 Intake Total 2333.0 2027.0 1879.1 2886.6 Output Total 4655 3055 2105 575 Balance -2322.0 -1028.0 -225.9 2311.6 Meds/Results Medications: Active Medications Generic Name Dose Route Start Last Admin Trade Name Freq PRN Reason Stop Dose Admin Acetaminophen 650 mg 11/26/24 14:25 12/07/24 04:00 Acetaminophen 325 Mg Tablet PO 650 mg Q6H PRN Administration Mild Pain (1-3) or Fever Acetylcysteine 200 mg 11/28/24 08:55 12/09/24 13:21 Acetylcysteine 20% Inhal Soln 800 Mg/4 Ml Vial INHALATION 200 mg Q6HRT EDMUNDO Administration Apixaban 5 mg 11/26/24 21:00 12/07/24 21:07 Apixaban 5 Mg Tablet PO 5 mg On Hold: 12/08/24 07:15 Q12HR EDMUNDO Administration Bisacodyl 10 mg 12/09/24 09:00 12/09/24 08:41 Bisacodyl 10 Mg Suppository RECTAL 10 mg QAM EDMUNDO Administration Dextrose 12.5 gm 11/26/24 16:15 Dextrose 50% 25 Gm/50 Ml Syringe IV PUSH PRN PRN Hypoglycemia Protocol Glucagon 1 mg 11/26/24 16:15 Glucagon For Inj 1 Mg Vial IM PRN PRN Hypoglycemia Protocol Glucose 15 gm 11/26/24 16:15 Glucose Oral Gel 15 Gm Of Glucse In 37.5 Gm Tube PO PRN PRN Hypoglycemia Protocol Heparin Sodium (Porcine) 10,000 units 12/08/24 07:12 Heparin Sodium 5,000 Units/Ml Vial IV PUSH PRN PRN aPTT less than 55 seconds Heparin Sodium (Porcine) 5,000 units 12/08/24 07:12 12/09/24 12:42 Heparin Sodium 5,000 Units/Ml Vial IV PUSH 5,000 units PRN PRN Administration aPTT 55 - 70 seconds Dextrose 1,000 mls @ 100 mls/hr 11/26/24 16:15 Dextrose 5% 1,000 Ml IVPB PRN PRN Hypoglycemia Protocol Dexmedetomidine HCl 400 mcg in 100 mls @ 40 mls/hr 12/06/24 12:25 12/09/24 16:01 Precedex 400 Mcg/100 Ml IV CONT 0.8 mcg/kg/hr .Q2H30M EDMUNDO 40 mls/hr Protocol Administration 0.8 MCG/KG/HR Heparin Sodium/Dextrose 25,000 units in 250 mls @ 21 mls/hr 12/08/24 07:15 12/09/24 14:39 Heparin Sodium/D5w 100 Units/Ml IV CONT 2,100 units/hr .[id number] EDMUNDO 21 mls/hr Protocol Administration 2,100 UNITS/HR Ibuprofen 400 mg/ Sodium 104 mls @ 208 mls/hr 12/08/24 13:16 12/09/24 02:26 Chloride IVPB 12/10/24 13:15 Infused Q6H PRN Infusion Fever >101 Propofol 100 mls @ 12 mls/hr 12/08/24 16:20 12/09/24 16:00 Diprivan IV CONT 10 mcg/kg/min .Q8H20M EDMUNDO 12 mls/hr Protocol Titration 10 MCG/KG/MIN Vancomycin HCl 1,500 mg in 500 mls @ 250 mls/hr 12/09/24 21:00 Vancomycin 1,500 Mg/Ns 500 Ml IVPB Q12H EDMUNDO Meropenem 1 gm/ Sodium 100 mls @ 200 mls/hr 12/09/24 14:00 12/09/24 15:27 Chloride IVPB Infused Q8HR EDMUNDO Infusion Insulin Aspart 3 - 6 units 11/28/24 06:50 12/09/24 11:54 Insulin Aspart (*Bkc) 100 Units/Ml SUB-Q Not Given Q6HR [facility] Protocol Insulin Glargine 25 units 12/01/24 09:00 12/07/24 08:34 Insulin Glargine (*Bkc) 100 Units/Ml SUB-Q 25 units On Hold: 12/08/24 07:18 QAM EDMUNDO Administration Ipratropium [place] 0.5 mg 11/29/24 08:00 12/09/24 13:20 Ipratropium Br 0.02% Inh Soln 0.5 Mg/2.5 Ml Vial INHALATION 0.5 mg Q6HRT EDMUNDO Administration Levalbuterol HCl 1.25 mg 11/29/24 20:00 12/09/24 13:20 Levalbuterol Neb 1.25 Mg/3 Ml INHALATION 1.25 mg Q6HRT EDMUNDO Administration Linaclotide 145 mcg 12/10/24 06:30 Linaclotide 145 Mcg Capsule PO DAILY@0630 [facility] Multi-Ingred Cream/Lotion/Oil/Oint 1 applic 11/28/24 09:00 12/09/24 08:42 Mineral Oil/White Petrolatum Ointment EACH EYE 1 applic Q12HR EDMUNDO Administration Pantoprazole Sodium 40 mg 11/29/24 09:00 12/09/24 08:41 Pantoprazole Sodium Iv 40 Mg Vial IV PUSH 40 mg QAM EDMUNDO Administration Polyethylene Glycol 17 gm 12/08/24 13:35 12/09/24 13:32 Polyethylene Glycol 3350 17 Gm Powd.Pack PO 17 gm Q8HR EDMUNDO Administration Senna/Docusate Sodium 1 tab 12/06/24 21:00 12/07/24 21:07 Senna/Docusate Sodium Tablet PO 1 tab On Hold: 12/08/24 07:17 HS EDMUNDO Administration Sertraline HCl 50 mg 11/27/24 09:00 11/28/24 12:06 Sertraline Hcl 50 Mg Tablet PO 50 mg On Hold: 11/29/24 08:16 DAILY EDMUNDO Administration Sodium Chloride 10 ml 11/28/24 14:00 12/09/24 13:34 Central Line Flush IV PUSH 10 ml Q8HR EDMUNDO Administration Sodium Chloride 20 ml 11/28/24 11:53 12/03/24 05:31 Central Line Flush IV PUSH 20 ml PRN PRN Administration after blood draws Radiology Results: ITS Impressions Venous Doppler Study 12/07/24 13:02 IMPRESSION: 1: No lower extremity deep venous thrombosis. Chest X-Ray 12/09/24 11:21 IMPRESSION: 1: Limited study as above. 2. Tip of endotracheal tube is 4.9 cm above the evelyn. Please see above for full details. Labs Labs: Laboratory Results - last 24 hr 12/08/24 12/08/24 12/09/24 18:19 22:02 00:17 WBC RBC Hgb Hct MCV MCH MCHC RDW Plt Count MPV Immature Gran % (Auto) Neut % (Auto) Lymph % (Auto) [place] % (Auto) Eos % (Auto) Baso % (Auto) Lymph # (Auto) [place] # (Auto) Eos # (Auto) Baso # (Auto) Abs Immat Gran (auto) Absolute Neuts (auto) Absolute Nucleated RBC Nucleated RBC % APTT 106.7 H Puncture Site ABG pH ABG pCO2 ABG pO2 ABG PO2/FiO2 Ratio ABG HCO3 ABG O2 Saturation ABG O2 Content ABG Base Excess A-a Gradient Oxyhemoglobin Carboxyhemoglobin Methemoglobin Reduced Hemoglobin Total Hemoglobin O2 Delivery Device O2 Liters/Min Minute Volume Vent Rate Vent Mode FiO2 Tidal Volume PEEP Peak Inspir Pressure Pressure Support Sodium Potassium Chloride Carbon Dioxide Anion Gap BUN Creatinine Estim Creat Clear Calc Estimated GFR Glucose POC Capillary Glucose 160 H 158 H Calcium Phosphorus Magnesium Total Bilirubin AST ALT Alkaline Phosphatase Total Protein Albumin Triglycerides 12/09/24 12/09/24 12/09/24 04:43 04:55 11:47 WBC 8.2 RBC 5.06 Hgb 13.7 L Hct 44.5 MCV 87.9 MCH 27.1 MCHC 30.8 L RDW 16.2 H Plt Count 187 MPV 10.0 Immature Gran % (Auto) 0.5 Neut % (Auto) 65.0 Lymph % (Auto) 22.4 [place] % (Auto) 9.3 H Eos % (Auto) 2.4 Baso % (Auto) 0.4 Lymph # (Auto) 1.83 [place] # (Auto) 0.8 H Eos # (Auto) 0.2 Baso # (Auto) 0.0 Abs Immat Gran (auto) 0.04 H Absolute Neuts (auto) 5.3 Absolute Nucleated RBC 0.000 Nucleated RBC % 0.0 APTT 57.7 H Puncture Site Artline ABG pH 7.490 H ABG pCO2 42.6 ABG pO2 68.1 L ABG PO2/FiO2 Ratio 1.70 ABG HCO3 31.7 H ABG O2 Saturation 94.8 L ABG O2 Content 18.9 ABG Base Excess 7.6 A-a Gradient 168.1 Oxyhemoglobin 92.8 Carboxyhemoglobin 0.9 Methemoglobin 0.0 Reduced Hemoglobin 6.3 H Total Hemoglobin 14.5 O2 Delivery Device Ventilator O2 Liters/Min Not Reportable Minute Volume Not Reportable Vent Rate 20 Vent Mode Cmv FiO2 40 Tidal Volume 450 PEEP 10 Peak Inspir Pressure Not Reportable Pressure Support Not Reportable Sodium 135 L Potassium 3.9 Chloride 96 L Carbon Dioxide 33 H Anion Gap 6 BUN 34 H Creatinine 0.80 Estim Creat Clear Calc 142 Estimated GFR > 60 Glucose 158 H POC Capillary Glucose 148 H Calcium 8.5 Phosphorus 4.3 Magnesium 1.6 Total Bilirubin 1.1 AST 39 ALT 32 Alkaline Phosphatase 126 Total Protein 6.8 Albumin 3.1 L Triglycerides 95 12/09/24 11:53 WBC RBC Hgb Hct MCV MCH MCHC RDW Plt Count MPV Immature Gran % (Auto) Neut % (Auto) Lymph % (Auto) [place] % (Auto) Eos % (Auto) Baso % (Auto) Lymph # (Auto) [place] # (Auto) Eos # (Auto) Baso # (Auto) Abs Immat Gran (auto) Absolute Neuts (auto) Absolute Nucleated RBC Nucleated RBC % APTT 64.4 H Puncture Site ABG pH ABG pCO2 ABG pO2 ABG PO2/FiO2 Ratio ABG HCO3 ABG O2 Saturation ABG O2 Content ABG Base Excess A-a Gradient Oxyhemoglobin Carboxyhemoglobin Methemoglobin Reduced Hemoglobin Total Hemoglobin O2 Delivery Device O2 Liters/Min Minute Volume Vent Rate Vent Mode FiO2 Tidal Volume PEEP Peak Inspir Pressure Pressure Support Sodium Potassium Chloride Carbon Dioxide Anion Gap BUN Creatinine Estim Creat Clear Calc Estimated GFR Glucose POC Capillary Glucose Calcium Phosphorus Magnesium Total Bilirubin AST ALT Alkaline Phosphatase Total Protein Albumin Triglycerides
--- NOTE | 2024-12-09 16:33 | WPDCN ---
Assessment and Plan Assessment and plan (1) Acute on chronic respiratory failure with hypoxia and hypercapnia: Code(s): J96.21 - Acute and chronic respiratory failure with hypoxia; J96.22 - Acute and chronic respiratory failure with hypercapnia Status: Acute Assessment and Plan: Plan OR tracheostomy. Please consent patient for tracheostomy. Please make NPO midnight day of procedure. Please hold VTE prophylaxis midnight day of procedure. Risks were discussed with daughter bleeding infection damage to surrounding structures need for further procedures. Permanent change in voice. Inability to perform procedure giving body habitus. Daughter voiced understanding of these risks. Tentatively planned for Thursday. If I cannot perform on Thursday, Dr. Veloz has agreed to perform on Thursday. (2) Hypoxemia: Code(s): R09.02 - Hypoxemia Status: Acute (3) COPD (chronic obstructive pulmonary disease): Qualifiers: COPD type: COPD with acute exacerbation Qualified Code(s): J44.1 - Chronic obstructive pulmonary disease with (acute) exacerbation Code(s): J44.9 - Chronic obstructive pulmonary disease, unspecified Status: Acute (4) Chronic respiratory failure with hypercapnia: Code(s): J96.12 - Chronic respiratory failure with hypercapnia Status: Acute (5) Acute hypoxic respiratory failure: Code(s): J96.01 - Acute respiratory failure with hypoxia Status: Acute (6) Pneumonia: Code(s): J18.9 - Pneumonia, unspecified organism Status: Acute HPI Data of Consult Date/Time: 12/09/24 16:33 Requesting Physician: Ny Jones DO Primary Care Provider: Manish CrooksMD Consult Narrative Narrative: Aman Newberry is a 64 year old male with respiratory failure. ENT consulted for tracheostomy. Review of Systems Review of Systems: All systems reviewed & are unremarkable except as noted in HPI and below PMFSH Past Medical History Medical History Class 3 severe obesity with body mass index (BMI) of 60.0 to 69.9 in adult Chronic respiratory failure with hypoxia and hypercapnia On home O2 Eczema KATIE (obstructive sleep apnea) With prior sleep study in 2010 recommend a BiPAP of 25/20 Type 2 diabetes mellitus COPD (chronic obstructive pulmonary disease) HLD (hyperlipidemia) Essential hypertension Surgical History Surgical History History of back surgery Status post surgery of both feet Family History Family History (Updated 11/26/24 @ 09:23 by Martha Garcia RN) Mother Hypertension Father Emphysema lung Social History Social History Smoking packs per day: 1.5 Smoking cigarettes per day: 30.0 Years smoked: 12 Smoking pack-years: 18.00 Smoking status: Former smoker Tobacco type: cigarettes Second hand tobacco smoke exposure: Yes Smoking end date: 03/16/14 Alcohol intake: never Substance use: never Substance use type: does not use Do You Feel Safe in your Home?: Yes Lack of Transportation: YES Lack of Food: Never True Current Housing: I Have Housing Concerned About Future Housing: No Difficulty Paying Gas/Electric Bills: No Difficulty Paying for Meds: No Currently Unemployed: No Education: Associate Degree Difficulty w/ Childcare or Family Care: No Spiritual care concerns: No Meds Home Medications and Allergies Home Medications ?Medication ?Instructions ?Recorded ?Confirmed ?Type [id number] 300 mcg-K 60 1 tablet PO DAILY 05/13/19 11/26/24 History mcg-lycop 600 mcg-lutein 300 mcg tablet (Centrum Silver Men) Held on 11/26/24. Instructions: Patient no longer taking sertraline 50 mg tablet 50 mg PO DAILY #90 tabs 11/14/19 11/26/24 Rx amlodipine 10 mg tablet 10 mg PO DAILY #90 tabs 03/02/20 11/26/24 Rx Held on 11/26/24. Instructions: Patient no longer taking lisinopril 40 mg tablet See Rx Instructions .Route 01/01/22 11/26/24 Rx .COMPLEX #30 tabs metformin 1,000 mg tablet 1,000 mg PO BID 07/20/24 11/26/24 History apixaban 5 mg tablet (Eliquis) 5 mg PO Q12HR #30 tabs 07/24/24 11/26/24 Rx Held on 11/26/24. Instructions: Patient no longer taking bacitracin 500 unit/gram topical 1 applic topical Q12HR #30 grams 07/24/24 11/26/24 Rx ointment Held on 11/26/24. Instructions: Patient no longer taking furosemide 40 mg tablet 40 mg PO BID #30 tabs 07/24/24 11/26/24 Rx guaifenesin 600 mg tablet, 1,200 mg (2 x 600 mg) PO Q12HR #30 07/24/24 11/26/24 Rx extended release 12 hr (Mucus tabs Relief ER) levalbuterol HCl 1.25 mg/3 mL 1.25 mg (3 mL) inhalation Q4HRT 07/24/24 11/26/24 Rx solution for nebulization PRN shortness of breath or wheezing #30 mL umeclidinium 62.5 mcg-vilanterol 1 inh inhalation DAILY #60 ea 07/24/24 11/26/24 Rx 25 mcg/actuation powdr for inhalation (Anoro Ellipta) Allergies Allergy/AdvReac Type Severity Reaction Status Date / Time tramadol AdvReac urinary Verified 11/26/24 11:11 retention Vital Signs Vital Signs - 24 hr 12/08/24 16:37 12/08/24 16:37 12/08/24 17:00 Temperature 38.2 C H Pulse Rate 86 86 74 Respiratory Rate 18 18 16 Blood Pressure 127/92 H Pulse Oximetry 100 Oxygen Delivery Fraction of Inspired Oxygen 12/08/24 17:17 12/08/24 18:00 12/08/24 18:00 Temperature Pulse Rate 81 76 76 Respiratory Rate 20 20 Blood Pressure Pulse Oximetry 100 Oxygen Delivery Mechanical Ventilation Fraction of Inspired Oxygen 40 12/08/24 18:00 12/08/24 18:00 12/08/24 18:00 Temperature 38.2 C H Pulse Rate 75 75 76 Respiratory Rate 20 20 Blood Pressure 143/101 H Pulse Oximetry 100 Oxygen Delivery Fraction of Inspired Oxygen 12/08/24 18:32 12/08/24 19:00 12/08/24 19:53 Temperature 38.2 C H Pulse Rate 72 72 68 Respiratory Rate 20 20 20 Blood Pressure 138/85 Pulse Oximetry 100 Oxygen Delivery Fraction of Inspired Oxygen 12/08/24 19:53 12/08/24 20:00 12/08/24 20:00 Temperature Pulse Rate 68 69 66 Respiratory Rate 20 20 20 Blood Pressure Pulse Oximetry Oxygen Delivery Fraction of Inspired Oxygen 12/08/24 20:00 12/08/24 20:00 12/08/24 20:00 Temperature 38.2 C H Pulse Rate 72 70 Respiratory Rate 20 20 Blood Pressure 135/86 Pulse Oximetry 100 100 Oxygen Delivery Mechanical Ventilation Fraction of Inspired Oxygen 40 40 12/08/24 20:00 12/08/24 20:05 12/08/24 20:06 Temperature Pulse Rate 70 66 69 Respiratory Rate 20 Blood Pressure Pulse Oximetry 100 Oxygen Delivery Mechanical Ventilation Fraction of Inspired Oxygen 40 12/08/24 20:24 12/08/24 20:32 12/08/24 21:00 Temperature 38.2 C H Pulse Rate 68 70 73 Respiratory Rate 20 20 22 H Blood Pressure 133/87 Pulse Oximetry 100 Oxygen Delivery Fraction of Inspired Oxygen 12/08/24 21:08 12/08/24 21:43 12/08/24 21:43 Temperature Pulse Rate 76 70 70 Respiratory Rate 28 H 20 20 Blood Pressure Pulse Oximetry Oxygen Delivery Fraction of Inspired Oxygen 12/08/24 22:00 12/08/24 22:00 12/08/24 22:00 Temperature 38.1 C H Pulse Rate 73 73 73 Respiratory Rate 20 20 20 Blood Pressure 125/91 H Pulse Oximetry 100 Oxygen Delivery Fraction of Inspired Oxygen 12/08/24 22:00 12/08/24 23:00 12/08/24 23:11 Temperature 38.1 C H Pulse Rate 73 72 67 Respiratory Rate 20 Blood Pressure 134/89 Pulse Oximetry 100 100 Oxygen Delivery Mechanical Ventilation Fraction of Inspired Oxygen 40 12/08/24 23:47 12/08/24 23:47 12/08/24 23:51 Temperature Pulse Rate 66 66 72 Respiratory Rate 20 20 20 Blood Pressure Pulse Oximetry Oxygen Delivery Fraction of Inspired Oxygen 12/08/24 23:51 12/09/24 00:00 12/09/24 00:00 Temperature Pulse Rate 72 65 65 Respiratory Rate 20 20 20 Blood Pressure Pulse Oximetry Oxygen Delivery Fraction of Inspired Oxygen 12/09/24 00:00 12/09/24 00:00 12/09/24 00:00 Temperature 38.2 C H Pulse Rate 65 65 Respiratory Rate 20 20 Blood Pressure 129/83 Pulse Oximetry 100 100 Oxygen Delivery Mechanical Ventilation Fraction of Inspired Oxygen 40 40 12/09/24 00:00 12/09/24 01:00 12/09/24 01:29 Temperature 38.3 C H Pulse Rate 65 67 68 Respiratory Rate 20 20 Blood Pressure 101/64 Pulse Oximetry 100 Oxygen Delivery Fraction of Inspired Oxygen 12/09/24 01:44 12/09/24 01:44 12/09/24 01:53 Temperature Pulse Rate 70 69 69 Respiratory Rate 26 H 20 Blood Pressure Pulse Oximetry 96 Oxygen Delivery Mechanical Ventilation Fraction of Inspired Oxygen 40 12/09/24 01:53 12/09/24 01:56 12/09/24 02:00 Temperature 38.4 C H 38.4 C H Pulse Rate 69 73 Respiratory Rate 20 21 H Blood Pressure 137/85 Pulse Oximetry 94 Oxygen Delivery Fraction of Inspired Oxygen 12/09/24 02:00 12/09/24 02:00 12/09/24 02:00 Temperature Pulse Rate 73 73 73 Respiratory Rate 21 H 21 H Blood Pressure Pulse Oximetry Oxygen Delivery Fraction of Inspired Oxygen 12/09/24 02:56 12/09/24 03:00 12/09/24 03:54 Temperature 38.3 C H 38.2 C H Pulse Rate 78 78 Respiratory Rate 21 H 20 Blood Pressure 142/92 H Pulse Oximetry 93 Oxygen Delivery Fraction of Inspired Oxygen 12/09/24 03:54 12/09/24 04:00 12/09/24 04:00 Temperature Pulse Rate 78 79 Respiratory Rate 20 20 Blood Pressure Pulse Oximetry 95 Oxygen Delivery Mechanical Ventilation Fraction of Inspired Oxygen 40 40 12/09/24 04:00 12/09/24 04:00 12/09/24 04:00 Temperature 38.2 C H Pulse Rate 79 65 65 Respiratory Rate 20 20 20 Blood Pressure 136/94 H Pulse Oximetry 95 Oxygen Delivery Fraction of Inspired Oxygen 12/09/24 04:00 12/09/24 05:00 12/09/24 05:03 Temperature 38.3 C H Pulse Rate 73 80 81 Respiratory Rate 23 H Blood Pressure 138/94 H Pulse Oximetry 93 95 Oxygen Delivery Mechanical Ventilation Fraction of Inspired Oxygen 40 12/09/24 05:47 12/09/24 06:00 12/09/24 06:00 Temperature Pulse Rate 81 79 79 Respiratory Rate 22 H 22 H 22 H Blood Pressure Pulse Oximetry Oxygen Delivery Fraction of Inspired Oxygen 12/09/24 06:00 12/09/24 06:00 12/09/24 06:00 Temperature 38.2 C H Pulse Rate 79 79 76 Respiratory Rate 22 H 22 H 22 H Blood Pressure 131/89 Pulse Oximetry 94 Oxygen Delivery Fraction of Inspired Oxygen 12/09/24 06:00 12/09/24 06:41 12/09/24 07:00 Temperature 38.3 C H Pulse Rate 76 77 77 Respiratory Rate 20 23 H Blood Pressure 131/87 Pulse Oximetry 95 Oxygen Delivery Fraction of Inspired Oxygen 12/09/24 07:29 12/09/24 07:30 12/09/24 07:37 Temperature Pulse Rate 78 78 76 Respiratory Rate 24 H 25 H Blood Pressure Pulse Oximetry 96 Oxygen Delivery Mechanical Ventilation Fraction of Inspired Oxygen 40 12/09/24 08:00 12/09/24 08:00 12/09/24 08:00 Temperature 38.3 C H Pulse Rate 82 82 83 Respiratory Rate 29 H 29 H 29 H Blood Pressure 127/84 Pulse Oximetry 94 Oxygen Delivery Fraction of Inspired Oxygen 12/09/24 08:00 12/09/24 08:00 12/09/24 08:00 Temperature Pulse Rate 85 Respiratory Rate Blood Pressure Pulse Oximetry 94 Oxygen Delivery Mechanical Ventilation Fraction of Inspired Oxygen 40 40 12/09/24 08:30 12/09/24 08:39 12/09/24 09:00 Temperature 38.3 C H Pulse Rate 90 90 86 Respiratory Rate 29 H 29 H 21 H Blood Pressure 91/64 L Pulse Oximetry 90 Oxygen Delivery Fraction of Inspired Oxygen 12/09/24 10:00 12/09/24 10:00 12/09/24 10:00 Temperature 38.2 C H Pulse Rate 75 79 81 Respiratory Rate 25 H 23 H Blood Pressure 116/105 H Pulse Oximetry 96 Oxygen Delivery Fraction of Inspired Oxygen 12/09/24 10:00 12/09/24 10:57 12/09/24 11:00 Temperature 38.2 C H Pulse Rate 83 74 79 Respiratory Rate 25 H 23 H Blood Pressure 140/86 Pulse Oximetry 96 95 Oxygen Delivery Mechanical Ventilation Fraction of Inspired Oxygen 40 12/09/24 11:05 12/09/24 11:05 12/09/24 12:00 Temperature Pulse Rate 82 82 69 Respiratory Rate 24 H 24 H 25 H Blood Pressure Pulse Oximetry Oxygen Delivery Fraction of Inspired Oxygen 12/09/24 12:00 12/09/24 12:00 12/09/24 12:00 Temperature Pulse Rate 69 Respiratory Rate 25 H Blood Pressure Pulse Oximetry 98 Oxygen Delivery Mechanical Ventilation Fraction of Inspired Oxygen 40 40 12/09/24 12:00 12/09/24 12:00 12/09/24 13:00 Temperature 38.1 C H 38.1 C H Pulse Rate 74 68 76 Respiratory Rate 20 22 H Blood Pressure 138/87 136/95 H Pulse Oximetry 97 96 Oxygen Delivery Fraction of Inspired Oxygen 12/09/24 13:21 12/09/24 13:22 12/09/24 13:32 Temperature Pulse Rate 64 68 66 Respiratory Rate 20 20 Blood Pressure Pulse Oximetry 96 Oxygen Delivery Mechanical Ventilation Fraction of Inspired Oxygen 40 12/09/24 13:32 12/09/24 14:00 12/09/24 14:00 Temperature 37.9 C H Pulse Rate 66 79 79 Respiratory Rate 20 26 H Blood Pressure 145/102 H Pulse Oximetry 98 Oxygen Delivery Fraction of Inspired Oxygen 12/09/24 14:00 12/09/24 14:00 12/09/24 16:00 Temperature Pulse Rate 79 79 78 Respiratory Rate 26 H 26 H 23 H Blood Pressure Pulse Oximetry Oxygen Delivery Fraction of Inspired Oxygen 12/09/24 16:01 12/09/24 16:01 Temperature Pulse Rate 78 78 Respiratory Rate 23 H 23 H Blood Pressure Pulse Oximetry Oxygen Delivery Fraction of Inspired Oxygen Exam Narrative: Large neck, peep 12 FiO2 40% Results Labs 12/09/24 04:43 12/09/24 04:43 Labs: Short CBC 12/09/24 Range/Units 04:43 WBC 8.2 (4.5-10.0) K/mm3 Hgb 13.7 L (14.0-18.0) g/dL Hct 44.5 (42.0-52.0) % Plt Count 187 (150-375) k/mm3 BMP 12/09/24 04:43 Sodium 135 L Potassium 3.9 Chloride 96 L Carbon Dioxide 33 H BUN 34 H Creatinine 0.80 Glucose 158 H Calcium 8.5 Liver Function 12/09/24 Range/Units 04:43 Total Bilirubin 1.1 (0.2-1.3) mg/dL AST 39 (17-59) U/L ALT 32 (6-50) U/L Alkaline Phosphatase 126 (38-126) U/L Albumin 3.1 L (3.5-5.1) g/dL
[2024-12-09] MEDS: PROPOFOL IV EMULSION 100 ML 6 MG IV CONT (18:16)
[2024-12-09 19:05] LABS: Partial Thromboplastin Time 97.5 Seconds (22.3-36.8)
[2024-12-09] MEDS: VANCOMYCIN 1,500 MG/NS 500 ML 1,500 MG/500 ML BAG 250 MG IVPB (20:16)
[2024-12-10] VITALS (61 sets, daily range): BP systolic 111–167; BP diastolic 66–101; PULSE 56–89; RESP 18–26; TEMP 36.4–37.8; O2SAT 91–97
[2024-12-10] MEDS: ACETYLCYSTEINE 20% INHAL SOLN 800 MG/4 ML VIAL 200 MG INHALATION ×4 (01:18→20:16)
[2024-12-10] MEDS: IPRATROPIUM BR 0.02% INH SOLN 0.5 MG/2.5 ML VIAL INHALATION ×4 (01:19→20:17)
[2024-12-10 01:28] LABS: Partial Thromboplastin Time 79.3 Seconds (22.3-36.8)
[2024-12-10] MEDS: dexmedeTOMIDine 400 MCG/100 ML 400 MCG/100 ML BAG 40 MCG IV CONT ×4 (01:30→09:08)
[2024-12-10] MEDS: HEPARIN SOD/D5W 100 UNITS/ML 25,000 UNITS/250 ML BAG 21 UNITS IV CONT ×2 (03:28→16:52)
[2024-12-10] MEDS: PROPOFOL IV EMULSION 100 ML 18 MG IV CONT ×4 (03:48→21:29)
[2024-12-10 05:19] LABS: Alveolar/Arterial O2 Gradient 163.1 mmHg; Carboxyhemoglobin 1.0 % THb (0-2.0); Fractional Inspired Oxygen 40 %; HCO3 ABG 30.4 mEq/l (22.0-26.0); Methemoglobin ABG 0.1 %THb (0-1.5); Oxygen Content ABG 18.6 %vol (16.0-22.0); Oxygen Saturation ABG 94.9 % (95.0-100.0); PCO2 ABG 44.5 mmHg (35.0-45.0); PO2 ABG 70.9 mmHg (80.0-100.0); PO2 FiO2 Ratio Arterial Blood 1.77 %; Reduced Hemoglobin 5.7 %THb (0-5.0)
[2024-12-10 05:22] LABS: Modified Allen's Test Pass; Site Drawn LEFT RADIAL
[2024-12-10 05:23] LABS: Arterial Blood Gas Tidal Volume 450 ml; Arterial Blood Gas Ventilator rate 20 /MIN
[2024-12-10 05:30] LABS: Hematocrit 42.5 % (42.0-52.0); Hemoglobin 12.9 g/dL (14.0-18.0); Immature Granulocyte Percent A 0.4 % (0-0.5); Lymphocytes Absolute Auto 1.41 K/mm3 (0.9-3.2); Mean Corpuscular HGB Conc 30.4 g/dl (32-36); Mean Corpuscular Hemoglobin 27.2 pg (26-34); Mean Corpuscular Volume 89.7 fl (80-100); Nucleated Red Blood Cells Absolute Auto 0.000 K/mm3 (0.0-0.012); Nucleated Red Blood Cells Perc 0.0 % (0.0-0.2); Platelet Count Result 160 k/mm3 (150-375); Red Blood Count 4.74 M/mm3 (4.6-6.20); White Blood Count 8.2 K/mm3 (4.5-10.0)
[2024-12-10 05:54] LABS: Alanine Aminotransferase 30 U/L (6-50); Albumin Level 3.0 g/dL (3.5-5.1); Alkaline Phosphatase 111 U/L (38-126); Anion Gap 5 mmol/L (4-12); Aspartate Amino Transferase 39 U/L (17-59); Bilirubin,Total 1.2 mg/dL (0.2-1.3); Blood Urea Nitrogen 25 mg/dL (9-20); CRP 4.6 mg/dL (<1.0); Calcium 8.2 mg/dL (8.4-10.2); Carbon Dioxide 31 mmol/L (22-30); Chloride 98 mmol/L (98-107); Estimated CRCL calculation 163 ml/min; Estimated Glomerular Filt Rate > 60; Glucose 140 mg/dL (65-110); Magnesium 1.7 mg/dL (1.6-2.3); Potassium 3.5 mmol/L (3.4-5.0); Sodium 134 mmol/L (137-145); Total Protein 6.5 g/dL (6.3-8.2)
[2024-12-10] MEDS: LINACLOTIDE 145 MCG CAPSULE PO (06:18)
[2024-12-10] MEDS: CENTRAL LINE FLUSH 10 ML IV PUSH ×3 (06:18→21:43)
[2024-12-10] MEDS: MEROPENEM 1 GM in SODIUM CHLORIDE 0.9% IV 100 ML 200 ML IVPB ×3 (06:20→22:12)
[2024-12-10 08:44] LABS: Partial Thromboplastin Time 82.1 Seconds (22.3-36.8)
[2024-12-10] MEDS: PROPOFOL IV EMULSION 100 ML 24 MG IV CONT (09:13)
[2024-12-10] MEDS: BISACODYL 10 MG SUPPOSITORY RECTAL (09:16)
[2024-12-10] MEDS: PANTOPRAZOLE SODIUM IV 40 MG VIAL IV PUSH (09:16)
[2024-12-10] MEDS: MINERAL OIL/WHITE PETROLATUM OINTMENT 1 APPLIC EACH EYE ×2 (09:17→21:43)
[2024-12-10] MEDS: MAGNESIUM SULF 2 GM/WATER 50ML 2 GM/50 ML BAG IVPB (09:21)
[2024-12-10] MEDS: KCL 40 MEQ/WATER 100 ML 100 ML 25 ML IVPB (09:22)
[2024-12-10] MEDS: VANCOMYCIN 1,500 MG/NS 500 ML 1,500 MG/500 ML BAG 250 MG IVPB (09:46)
--- NOTE | 2024-12-10 11:08 | P.PN_ITS ---
Progress Note: A&P Assessment and Plan (1) Ileus: Code(s): K56.7 - Ileus, unspecified Status: Acute Assessment and Plan: Due to acute illness to include respiratory failure and ventilator support and pneumonia. Management as per GI with laxatives and suppositories. No indications for surgical management. Surgery will sign off. Subjective Date/time seen: 12/10/24 11:08 Interval history: Patient remains intubated. He is going to have a tracheostomy and PEG placed on Thursday. Bowel regimen as recommended by GI is being followed. Patient had a small smear of old bowel movement today. Abdomen appears to be benign. Exam GI: Other: Abdomen is is morbidly obese. Does not appear distended. Patient is able to nod head and indicate that he does not have any abdominal pain with palpation. Objective Data Vital Signs Vital Signs: Vital Signs - 24 hr 12/09/24 12:00 12/09/24 12:00 12/09/24 12:00 Temperature Pulse Rate 69 69 Respiratory Rate 25 H 25 H Blood Pressure Pulse Oximetry 98 Oxygen Delivery Mechanical Ventilation Fraction of Inspired Oxygen 40 12/09/24 12:00 12/09/24 12:00 12/09/24 12:00 Temperature 38.1 C H Pulse Rate 74 68 Respiratory Rate 20 Blood Pressure 138/87 Pulse Oximetry 97 Oxygen Delivery Fraction of Inspired Oxygen 40 12/09/24 13:00 12/09/24 13:21 12/09/24 13:22 Temperature 38.1 C H Pulse Rate 76 64 68 Respiratory Rate 22 H 20 Blood Pressure 136/95 H Pulse Oximetry 96 96 Oxygen Delivery Mechanical Ventilation Fraction of Inspired Oxygen 40 12/09/24 13:32 12/09/24 13:32 12/09/24 14:00 Temperature Pulse Rate 66 66 79 Respiratory Rate 20 20 Blood Pressure Pulse Oximetry Oxygen Delivery Fraction of Inspired Oxygen 12/09/24 14:00 12/09/24 14:00 12/09/24 14:00 Temperature 37.9 C H Pulse Rate 79 79 79 Respiratory Rate 26 H 26 H 26 H Blood Pressure 145/102 H Pulse Oximetry 98 Oxygen Delivery Fraction of Inspired Oxygen 12/09/24 15:00 12/09/24 16:00 12/09/24 16:00 Temperature 37.9 C H 37.9 C H Pulse Rate 78 78 78 Respiratory Rate 25 H 23 H 25 H Blood Pressure 142/91 H 145/90 H Pulse Oximetry 98 98 Oxygen Delivery Fraction of Inspired Oxygen 12/09/24 16:00 12/09/24 16:00 12/09/24 16:00 Temperature Pulse Rate 84 Respiratory Rate Blood Pressure Pulse Oximetry 98 Oxygen Delivery Mechanical Ventilation Fraction of Inspired Oxygen 40 40 12/09/24 16:01 12/09/24 16:01 12/09/24 16:20 Temperature Pulse Rate 78 78 72 Respiratory Rate 23 H 23 H Blood Pressure Pulse Oximetry 96 Oxygen Delivery Mechanical Ventilation Fraction of Inspired Oxygen 40 12/09/24 17:00 12/09/24 18:00 12/09/24 18:00 Temperature 37.9 C H 37.9 C H Pulse Rate 79 73 73 Respiratory Rate 22 H 22 H Blood Pressure 135/91 H 146/95 H Pulse Oximetry 96 98 Oxygen Delivery Fraction of Inspired Oxygen 12/09/24 18:00 12/09/24 18:00 12/09/24 18:16 Temperature Pulse Rate 73 73 75 Respiratory Rate 22 H 22 H 23 H Blood Pressure Pulse Oximetry Oxygen Delivery Fraction of Inspired Oxygen 12/09/24 18:16 12/09/24 18:17 12/09/24 18:17 Temperature Pulse Rate 75 73 73 Respiratory Rate 23 H 22 H 22 H Blood Pressure Pulse Oximetry Oxygen Delivery Fraction of Inspired Oxygen 12/09/24 19:00 12/09/24 19:25 12/09/24 19:25 Temperature 37.9 C H Pulse Rate 62 71 71 Respiratory Rate 22 H 24 H Blood Pressure 136/91 H Pulse Oximetry 97 98 Oxygen Delivery Mechanical Ventilation Fraction of Inspired Oxygen 40 12/09/24 20:00 12/09/24 20:00 12/09/24 20:00 Temperature 37.9 C H Pulse Rate 79 75 75 Respiratory Rate 28 H 27 H 27 H Blood Pressure 123/109 H Pulse Oximetry 97 Oxygen Delivery Fraction of Inspired Oxygen 12/09/24 20:00 12/09/24 20:00 12/09/24 20:21 Temperature Pulse Rate 74 Respiratory Rate Blood Pressure 150/98 H Pulse Oximetry Oxygen Delivery Fraction of Inspired Oxygen 40 12/09/24 20:42 12/09/24 20:42 12/09/24 21:00 Temperature 37.7 C H Pulse Rate 81 81 80 Respiratory Rate 24 H 24 H 25 H Blood Pressure 156/96 H Pulse Oximetry 95 Oxygen Delivery Fraction of Inspired Oxygen 12/09/24 22:00 12/09/24 22:00 12/09/24 22:00 Temperature 37.7 C H Pulse Rate 81 76 76 Respiratory Rate 21 H 20 20 Blood Pressure 165/93 H Pulse Oximetry 94 Oxygen Delivery Fraction of Inspired Oxygen 12/09/24 22:00 12/09/24 22:20 12/09/24 22:54 Temperature Pulse Rate 76 75 77 Respiratory Rate 24 H Blood Pressure Pulse Oximetry 94 Oxygen Delivery Mechanical Ventilation Fraction of Inspired Oxygen 40 12/09/24 22:54 12/09/24 23:00 12/10/24 00:00 Temperature 37.6 C H 37.7 C H Pulse Rate 77 77 86 Respiratory Rate 24 H 23 H 20 Blood Pressure 159/99 H 153/86 H Pulse Oximetry 95 95 Oxygen Delivery Fraction of Inspired Oxygen 12/10/24 00:00 12/10/24 00:00 12/10/24 00:00 Temperature Pulse Rate 78 78 Respiratory Rate 25 H 25 H Blood Pressure Pulse Oximetry Oxygen Delivery Fraction of Inspired Oxygen 40 12/10/24 00:00 12/10/24 01:00 12/10/24 01:14 Temperature 37.8 C H Pulse Rate 77 78 78 Respiratory Rate 24 H 24 H Blood Pressure 143/93 H Pulse Oximetry 97 Oxygen Delivery Fraction of Inspired Oxygen 12/10/24 01:19 12/10/24 01:19 12/10/24 01:24 Temperature Pulse Rate 78 78 81 Respiratory Rate 24 H 26 H Blood Pressure Pulse Oximetry 96 Oxygen Delivery Mechanical Ventilation Fraction of Inspired Oxygen 40 12/10/24 01:26 12/10/24 01:30 12/10/24 02:00 Temperature Pulse Rate 84 81 87 Respiratory Rate 24 H 26 H 25 H Blood Pressure Pulse Oximetry Oxygen Delivery Fraction of Inspired Oxygen 12/10/24 02:00 12/10/24 02:00 12/10/24 02:00 Temperature 37.8 C H Pulse Rate 87 89 88 Respiratory Rate 25 H 22 H Blood Pressure 111/99 H Pulse Oximetry 96 Oxygen Delivery Fraction of Inspired Oxygen 12/10/24 03:00 12/10/24 03:46 12/10/24 03:46 Temperature 37.6 C Pulse Rate 84 83 83 Respiratory Rate 19 20 20 Blood Pressure 155/93 H Pulse Oximetry 93 Oxygen Delivery Fraction of Inspired Oxygen 12/10/24 03:48 12/10/24 03:48 12/10/24 04:00 Temperature Pulse Rate 83 83 81 Respiratory Rate 20 20 20 Blood Pressure Pulse Oximetry Oxygen Delivery Fraction of Inspired Oxygen 12/10/24 04:00 12/10/24 04:00 12/10/24 04:00 Temperature 37.5 C Pulse Rate 81 81 Respiratory Rate 20 20 Blood Pressure 134/90 Pulse Oximetry 92 Oxygen Delivery Fraction of Inspired Oxygen 40 12/10/24 04:00 12/10/24 05:00 12/10/24 05:20 Temperature 37.4 C Pulse Rate 82 80 75 Respiratory Rate 19 Blood Pressure 167/90 H Pulse Oximetry 96 91 Oxygen Delivery Mechanical Ventilation Fraction of Inspired Oxygen 40 12/10/24 06:00 12/10/24 06:00 12/10/24 06:00 Temperature Pulse Rate 80 80 74 Respiratory Rate 22 H 22 H Blood Pressure Pulse Oximetry Oxygen Delivery Fraction of Inspired Oxygen 12/10/24 06:00 12/10/24 06:35 12/10/24 06:39 Temperature 37.5 C Pulse Rate 74 75 78 Respiratory Rate 24 H 20 23 H Blood Pressure 145/84 H Pulse Oximetry 96 Oxygen Delivery Fraction of Inspired Oxygen 12/10/24 06:39 12/10/24 07:01 12/10/24 08:00 Temperature 37.6 C 37.6 C H Pulse Rate 78 77 67 Respiratory Rate 23 H 23 H 22 H Blood Pressure 138/79 154/101 H Pulse Oximetry 96 96 Oxygen Delivery Fraction of Inspired Oxygen 12/10/24 08:00 12/10/24 08:10 12/10/24 08:15 Temperature Pulse Rate 76 76 72 Respiratory Rate 22 H 22 H 22 H Blood Pressure Pulse Oximetry Oxygen Delivery Fraction of Inspired Oxygen 12/10/24 08:20 12/10/24 08:28 12/10/24 08:32 Temperature Pulse Rate 76 76 69 Respiratory Rate 21 H 21 H Blood Pressure Pulse Oximetry 95 Oxygen Delivery Mechanical Ventilation Fraction of Inspired Oxygen 40 12/10/24 08:40 12/10/24 09:08 12/10/24 09:08 Temperature Pulse Rate 73 78 78 Respiratory Rate 20 20 20 Blood Pressure Pulse Oximetry Oxygen Delivery Fraction of Inspired Oxygen 12/10/24 09:13 12/10/24 09:13 Temperature Pulse Rate 77 77 Respiratory Rate 20 20 Blood Pressure Pulse Oximetry Oxygen Delivery Fraction of Inspired Oxygen Intake/Output Intake/Output: Intake & Output 12/07/24 12/08/24 12/09/24 12/10/24 23:59 23:59 23:59 23:59 Intake Total 2027.0 1879.1 4263.7 1145.7 Output Total 3055 2105 1725 1150 Balance -1028.0 -225.9 2538.7 -4.3 Meds/Results Medications: Active Medications Generic Name Dose Route Start Last Admin Trade Name Freq PRN Reason Stop Dose Admin Acetaminophen 650 mg 11/26/24 14:25 12/07/24 04:00 Acetaminophen 325 Mg Tablet PO 650 mg Q6H PRN Administration Mild Pain (1-3) or Fever Acetylcysteine 200 mg 11/28/24 08:55 12/10/24 08:27 Acetylcysteine 20% Inhal Soln 800 Mg/4 Ml Vial INHALATION 200 mg Q6HRT EDMUNDO Administration Apixaban 5 mg 11/26/24 21:00 12/07/24 21:07 Apixaban 5 Mg Tablet PO 5 mg On Hold: 12/08/24 07:15 Q12HR EDMUNDO Administration Bisacodyl 10 mg 12/09/24 09:00 12/10/24 09:16 Bisacodyl 10 Mg Suppository RECTAL 10 mg QAM EDMUNDO Administration Dextrose 12.5 gm 11/26/24 16:15 Dextrose 50% 25 Gm/50 Ml Syringe IV PUSH PRN PRN Hypoglycemia Protocol Glucagon 1 mg 11/26/24 16:15 Glucagon For Inj 1 Mg Vial IM PRN PRN Hypoglycemia Protocol Glucose 15 gm 11/26/24 16:15 Glucose Oral Gel 15 Gm Of Glucse In 37.5 Gm Tube PO PRN PRN Hypoglycemia Protocol Heparin Sodium (Porcine) 10,000 units 12/08/24 07:12 Heparin Sodium 5,000 Units/Ml Vial IV PUSH PRN PRN aPTT less than 55 seconds Heparin Sodium (Porcine) 5,000 units 12/08/24 07:12 12/10/24 01:46 Heparin Sodium 5,000 Units/Ml Vial IV PUSH 5,000 units PRN PRN Administration aPTT 55 - 70 seconds Dextrose 1,000 mls @ 100 mls/hr 11/26/24 16:15 Dextrose 5% 1,000 Ml IVPB PRN PRN Hypoglycemia Protocol Dexmedetomidine HCl 400 mcg in 100 mls @ 40 mls/hr 12/06/24 12:25 12/10/24 09:08 Precedex 400 Mcg/100 Ml IV CONT 0.8 mcg/kg/hr .Q2H30M EDMUNDO 40 mls/hr Protocol Administration 0.8 MCG/KG/HR Heparin Sodium/Dextrose 25,000 units in 250 mls @ 21 mls/hr 12/08/24 07:15 12/10/24 09:07 Heparin Sodium/D5w 100 Units/Ml IV CONT 2,100 units/hr .[id number] EDMUNDO 21 mls/hr Protocol Titration 2,100 UNITS/HR Ibuprofen 400 mg/ Sodium 104 mls @ 208 mls/hr 12/08/24 13:16 12/09/24 02:26 Chloride IVPB 12/10/24 13:15 Infused Q6H PRN Infusion Fever >101 Propofol 100 mls @ 24 mls/hr 12/08/24 16:20 12/10/24 09:13 Diprivan IV CONT 20 mcg/kg/min .Q4H10M EDMUNDO 24 mls/hr Protocol Administration 20 MCG/KG/MIN Vancomycin HCl 1,500 mg in 500 mls @ 250 mls/hr 12/09/24 21:00 12/10/24 09:46 Vancomycin 1,500 Mg/Ns 500 Ml IVPB 250 mls/hr Q12H EDMUNDO Administration Meropenem 1 gm/ Sodium 100 mls @ 200 mls/hr 12/09/24 14:00 12/10/24 06:50 Chloride IVPB Infused Q8HR EDMUNDO Infusion Potassium Chloride 100 mls @ 25 mls/hr 12/10/24 07:51 12/10/24 09:22 Kcl 40 Meq/Water 100 Ml IVPB 12/10/24 11:50 25 mls/hr ONCE ONE Administration Insulin Aspart 3 - 6 units 11/28/24 06:50 12/10/24 05:55 Insulin Aspart (*Bkc) 100 Units/Ml SUB-Q Not Given Q6HR [facility] Protocol Insulin Glargine 25 units 12/01/24 09:00 12/07/24 08:34 Insulin Glargine (*Bkc) 100 Units/Ml SUB-Q 25 units On Hold: 12/08/24 07:18 QAM EDMUNDO Administration Ipratropium [place] 0.5 mg 11/29/24 08:00 12/10/24 08:27 Ipratropium Br 0.02% Inh Soln 0.5 Mg/2.5 Ml Vial INHALATION 0.5 mg Q6HRT EDMUNDO Administration Levalbuterol HCl 1.25 mg 11/29/24 20:00 12/10/24 08:27 Levalbuterol Neb 1.25 Mg/3 Ml INHALATION 1.25 mg Q6HRT EDMUNDO Administration Linaclotide 145 mcg 12/10/24 06:30 12/10/24 06:18 Linaclotide 145 Mcg Capsule PO 145 mcg DAILY@0630 EDMUNDO Administration Multi-Ingred Cream/Lotion/Oil/Oint 1 applic 11/28/24 09:00 12/10/24 09:17 Mineral Oil/White Petrolatum Ointment EACH EYE 1 applic Q12HR EDMUNDO Administration Pantoprazole Sodium 40 mg 11/29/24 09:00 12/10/24 09:16 Pantoprazole Sodium Iv 40 Mg Vial IV PUSH 40 mg QAM EDMUNDO Administration Polyethylene Glycol 17 gm 12/08/24 13:35 12/10/24 06:18 Polyethylene Glycol 3350 17 Gm Powd.Pack PO 17 gm Q8HR EDMUNDO Administration Senna/Docusate Sodium 1 tab 12/06/24 21:00 12/07/24 21:07 Senna/Docusate Sodium Tablet PO 1 tab On Hold: 12/08/24 07:17 HS EDMUNDO Administration Sertraline HCl 50 mg 11/27/24 09:00 11/28/24 12:06 Sertraline Hcl 50 Mg Tablet PO 50 mg On Hold: 11/29/24 08:16 DAILY EDMUNDO Administration Sodium Chloride 10 ml 11/28/24 14:00 12/10/24 06:18 Central Line Flush IV PUSH 10 ml Q8HR EDMUNDO Administration Sodium Chloride 20 ml 11/28/24 11:53 12/03/24 05:31 Central Line Flush IV PUSH 20 ml PRN PRN Administration after blood draws Radiology Results: ITS Impressions Venous Doppler Study 12/07/24 13:02 IMPRESSION: 1: No lower extremity deep venous thrombosis. Chest X-Ray 12/10/24 08:53 IMPRESSION: 1. Volume loss left lung with lower lobe atelectasis, possible superimposed airspace disease and/or large effusion. 2. Persistent interstitial edema and/or airspace disease right lung. Labs Labs: Laboratory Results - last 24 hr 12/09/24 12/09/24 12/09/24 11:47 11:53 18:26 WBC RBC Hgb Hct MCV MCH MCHC RDW Plt Count MPV Immature Gran % (Auto) Neut % (Auto) Lymph % (Auto) [place] % (Auto) Eos % (Auto) Baso % (Auto) Lymph # (Auto) [place] # (Auto) Eos # (Auto) Baso # (Auto) Abs Immat Gran (auto) Absolute Neuts (auto) Absolute Nucleated RBC Nucleated RBC % APTT 64.4 H Puncture Site ABG pH ABG pCO2 ABG pO2 ABG PO2/FiO2 Ratio ABG HCO3 ABG O2 Saturation ABG O2 Content ABG Base Excess A-a Gradient Oxyhemoglobin Carboxyhemoglobin Methemoglobin Reduced Hemoglobin Total Hemoglobin O2 Delivery Device O2 Liters/Min Minute Volume Vent Rate Vent Mode FiO2 Tidal Volume PEEP Peak Inspir Pressure Pressure Support Sodium Potassium Chloride Carbon Dioxide Anion Gap BUN Creatinine Estim Creat Clear Calc Estimated GFR Glucose POC Capillary Glucose 148 H 144 H Lactic Acid Calcium Phosphorus Magnesium Total Bilirubin AST ALT Alkaline Phosphatase C-Reactive Protein Total Protein Albumin 12/09/24 12/10/24 12/10/24 18:30 00:14 01:10 WBC RBC Hgb Hct MCV MCH MCHC RDW Plt Count MPV Immature Gran % (Auto) Neut % (Auto) Lymph % (Auto) [place] % (Auto) Eos % (Auto) Baso % (Auto) Lymph # (Auto) [place] # (Auto) Eos # (Auto) Baso # (Auto) Abs Immat Gran (auto) Absolute Neuts (auto) Absolute Nucleated RBC Nucleated RBC % APTT 97.5 H 79.3 H Puncture Site ABG pH ABG pCO2 ABG pO2 ABG PO2/FiO2 Ratio ABG HCO3 ABG O2 Saturation ABG O2 Content ABG Base Excess A-a Gradient Oxyhemoglobin Carboxyhemoglobin Methemoglobin Reduced Hemoglobin Total Hemoglobin O2 Delivery Device O2 Liters/Min Minute Volume Vent Rate Vent Mode FiO2 Tidal Volume PEEP Peak Inspir Pressure Pressure Support Sodium Potassium Chloride Carbon Dioxide Anion Gap BUN Creatinine Estim Creat Clear Calc Estimated GFR Glucose POC Capillary Glucose 145 H Lactic Acid Calcium Phosphorus Magnesium Total Bilirubin AST ALT Alkaline Phosphatase C-Reactive Protein Total Protein Albumin 12/10/24 12/10/24 12/10/24 04:45 05:20 08:23 WBC 8.2 RBC 4.74 Hgb 12.9 L Hct 42.5 MCV 89.7 MCH 27.2 MCHC 30.4 L RDW 16.0 H Plt Count 160 MPV 10.0 Immature Gran % (Auto) 0.4 Neut % (Auto) 71.9 Lymph % (Auto) 17.2 L [place] % (Auto) 7.2 Eos % (Auto) 2.8 Baso % (Auto) 0.5 Lymph # (Auto) 1.41 [place] # (Auto) 0.6 Eos # (Auto) 0.2 Baso # (Auto) 0.0 Abs Immat Gran (auto) 0.03 Absolute Neuts (auto) 5.9 Absolute Nucleated RBC 0.000 Nucleated RBC % 0.0 APTT 82.1 H Puncture Site Left radial ABG pH 7.453 H ABG pCO2 44.5 ABG pO2 70.9 L ABG PO2/FiO2 Ratio 1.77 ABG HCO3 30.4 H ABG O2 Saturation 94.9 L ABG O2 Content 18.6 ABG Base Excess 5.7 A-a Gradient 163.1 Oxyhemoglobin 93.2 Carboxyhemoglobin 1.0 Methemoglobin 0.1 Reduced Hemoglobin 5.7 H Total Hemoglobin 14.2 O2 Delivery Device Ventilator O2 Liters/Min Not Reportable Minute Volume Not Reportable Vent Rate 20 Vent Mode Cmv FiO2 40 Tidal Volume 450 PEEP 12 Peak Inspir Pressure Not Reportable Pressure Support Not Reportable Sodium 134 L Potassium 3.5 Chloride 98 Carbon Dioxide 31 H Anion Gap 5 BUN 25 H Creatinine 0.67 L Estim Creat Clear Calc 163 Estimated GFR > 60 Glucose 140 H POC Capillary Glucose Lactic Acid 1.1 Calcium 8.2 L Phosphorus 3.5 Magnesium 1.7 Total Bilirubin 1.2 AST 39 ALT 30 Alkaline Phosphatase 111 C-Reactive Protein 4.6 H Total Protein 6.5 Albumin 3.0 L
[2024-12-10] MEDS: dexmedeTOMIDine 400 MCG/100 ML 400 MCG/100 ML BAG 35 MCG IV CONT (11:49)
--- NOTE | 2024-12-10 11:57 | WPDINTPN ---
Progress Note: A&P Assessment and Plan (1) Fever: Code(s): R50.9 - Fever, unspecified Status: Acute Assessment and Plan: 12/09 and 12/09: Continues to have fevers, currently on levofloxacin for Pseudomonas pneumonia 12/08: Metronidazole due to large bowel obstruction and to cover anaerobes -12/07: lower extremity venous Dopplers are negative -12/07: Urine culture negative urine culture -12/07: Blood culture -preliminary are negative x2 -12/09: Sputum culture pending -12/09: chest x-ray shows atelectasis, increased peep to 12 to expand lower lobes of the lungs -started on meropenem and vancomycin (12/09). Discontinued levofloxacin and metronidazole -appreciate infectious disease evaluation and recommendations (2) Acute on chronic respiratory failure with hypoxia and hypercapnia: Code(s): J96.21 - Acute and chronic respiratory failure with hypoxia; J96.22 - Acute and chronic respiratory failure with hypercapnia Status: Acute Assessment and Plan: Acute on chronic respiratory failure secondary to multifactorial combination of COPD, obesity hypoventilation syndrome, left-sided pneumonia, pulmonary edema, atelectasis 11/26: Patient was admitted for increasing/worsening dyspnea 1 day prior to admission. Patient was in the intermediate Unit, evaluated by pulmonology, has been noncompliant with his AVAPS/BiPAP. 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 Also was possibly delirious as he pulled out his IV lines and BiPAP mask. -was on propofol, dropped his blood pressures in the 40s systolic, propofol infusion were discontinued currently sedated with Versed and fentanyl On admission: Chest x-ray shows a consolidation versus atelectasis versus combination of 2 on the left side. Patient is a too big for CT scanner hence unable to evaluate 11/29 bronchoscopy was done. Minimal amount of secretions were seen. Continue to elevate left side with pillows more than right Continue bronchodilators, Mucomyst nebs -status post Pulmozyme nebs -Continue chest PT has been ordered -status post Solu-Medrol -11/29: Sputum culture is growing Pseudomonas. Nasal MRSA screen was positive. Patient was on vancomycin earlier, which was discontinued -currently on levofloxacin -12/07: Tolerated ASV almost totally evening in the knee got tired, tachycardic, and was placed back on CMV mode of ventilation -Currently on CMV mode of ventilation, 40% FiO2 and peep of 12. -will hold diuresis today is urine is dark, patient is auto diuresing -currently only on Precedex, low-dose propofol infusion infusion started on 12/08 as patient was pretty restless only on Precedex (3) COPD exacerbation: Code(s): J44.1 - Chronic obstructive pulmonary disease with (acute) exacerbation Status: Acute Assessment and Plan: See above (4) Pneumonia: Code(s): J18.9 - Pneumonia, unspecified organism Status: Acute Assessment and Plan: See above (5) Hypotension: Code(s): I95.9 - Hypotension, unspecified Status: Acute Assessment and Plan: Patient dropped his blood pressure is likely related to propofol infuse and positive-pressure ventilation -on admission to the ICU required phenylephrine push and Levophed infusion Now off pressors -hemodynamically stable (6) Atrial fibrillation with RVR: Code(s): I48.91 - Unspecified atrial fibrillation Status: Acute Assessment and Plan: Patient has a history of AFib with RVR, currently rate controlled but remains in atrial fibrillation -continue Eliquis -given that he has this ileus/small-bowel obstruction, will hold Eliquis and continue heparin infusion (12/08) (7) Type 2 diabetes mellitus: Qualifiers: Diabetes mellitus termite helper insulin use: without termite helper use Diabetes mellitus complication status: without complication Qualified Code(s): E11.9 - Type 2 diabetes mellitus without complications Code(s): E11.9 - Type 2 diabetes mellitus without complications Status: Acute Assessment and Plan: Accu-Cheks and sliding scale insulin Hold Lantus since patient is NPO (8) Essential hypertension: Code(s): I10 - Essential (primary) hypertension Status: Acute Assessment and Plan: Hold antihypertensive medications at this time (9) KATIE (obstructive sleep apnea): Code(s): G47.33 - Obstructive sleep apnea (adult) (pediatric) Status: Acute Assessment and Plan: Non compliant with his CPAP/AVAPS -currently intubated (10) Edema of abdominal wall: Code(s): R60.0 - Localized edema Status: Acute Assessment and Plan: Edema of the abdominal wall on the left side likely related to dependent edema as patient fevers to lay on that side Will hold Lasix for today and re-evaluate (11) Electrolyte abnormality: Code(s): E87.8 - Other disorders of electrolyte and fluid balance, not elsewhere classified Status: Acute Assessment and Plan: Replace potassium and magnesium (12) Ileus: Code(s): K56.7 - Ileus, unspecified Status: Acute Assessment and Plan: 12/07: Patient has not had any bowel moved, obtained a obstructive series which showed Ileus versus early large bowel obstruction -OG tube to suction -appreciate surgery evaluation and recommendations, no further intervention from surgery, signing off -appreciate GI evaluation and recommendations, started on Dulcolax suppository, MiraLax and Linzess per GI -no bowel movements as yet Plan DVT prophylaxis: Apixaban held due to Ileus/SBO, started on heparin infusion Stress ulcer prophylaxis: Protonix Nutrition: Hold tube feeds, continue Dulcolax suppository, will discuss with GI regarding restarting trickle tube feeds to maintain gut integrity Code Status: Full code Critical Care Time Spent: 32 minutes GI and ENT planning for PEG and tracheostomy early next week 12/09: Discussed with daughter, JOSHUA Bliss, updated her with patient's condition and plan of care. I explained to her in details regarding the need for tracheostomy and PEG tube placement, also discussed with the patient, both of them are agreeable. Due to a high probability of clinically significant, life threatening deterioration, the patient required my highest level of preparedness to intervene emergently and I personally spent this critical care time directly and personally managing the patient. This critical care time included obtaining a history; examining the patient; pulse oximetry; ordering and review of studies; arranging urgent treatment with development of a management plan; evaluation of patient's response to treatment; frequent reassessment; and discussions with other providers. It was exclusive of separately billable procedures and treating other patients and teaching time. Please see Assessment and Plan section and the rest of the note for further information on patient assessment and treatment This dictation may have been done utilizing a voice recognition system. Attempts have been made to correct errors. However, there may be uncorrected grammatical, spelling, and recognitions errors present. Subjective Date/time seen: 12/10/24 11:57 Interval history: Reason for consult: Acute hypoxic and hypercapnic respiratory failure since, hypotension/shock, pneumonia, COPD exacerbation, noncompliance 9/15 intubation 11/29 bronchoscopy 12/09: ETT was exchanged over bougie as it kept popping out from the connecter/adapter 12/10/2024: Patient seen and examined the ICU, remains intubated on CMV mode of ventilation, peep of 12, 40% FiO2. On Precedex and propofol infusion. More calm this morning, is awake, alert, follows simple commands, nods to question. Fever curve is trending down after starting vancomycin and meropenem yesterday. Continues to have adequate urine output. Hemodynamically stable No bowel movements despite getting Dulcolax suppository, MiraLax, linaclotide His right wrist art line nonfunctioning, was removed this morning Review of Systems Review of Systems: ROS unobtainable: Yes unobtainable due to endotracheal tube, unobtainable due to medical condition and unobtainable due to mental status Exam Narrative: General: Significantly obese gentleman, currently intubated, sedated in no acute distress HEENT:? Pupils equal and reactive, sclera is clear, ETT in place Neck:? Thick and short neck Respiratory:? Decreased air entry bilaterally, no wheezing. Breath sounds are improved on the left side but still less than as compared to right side Chest: Left breast is larger than the right, induration, erythema and warmth has improved Cardiac:? Distant heart sounds, irregularly irregular Abdomen:? Morbidly obese, indurated and firm on the left side with pitting edema, right side is softer with less edema, according the daughter patient prefers to lay on the left side, causing possible dependent edema and swelling. Hypoactive bowel sounds, tympanic on percussion Extremities:? Edema is improving in bilateral lower extremities, palpable pedal pulses Neuro:? Patient is intubated, on propofol and Precedex infusion patient is calm, awake, nods to questions follows simple commands in lower extremities, moves all extremities spontaneously Skin:? Bruising noted on upper extremities, torso, chronic venous stasis changes on bilateral lower extremity Psych:? Unable to assess at this time Objective Data Vital Signs Vital Signs: Vital Signs - 24 hr 12/09/24 12:00 12/09/24 12:00 12/09/24 12:00 Temperature Pulse Rate 69 69 Respiratory Rate 25 H 25 H Blood Pressure Pulse Oximetry 98 Oxygen Delivery Mechanical Ventilation Fraction of Inspired Oxygen 40 12/09/24 12:00 12/09/24 12:00 12/09/24 12:00 Temperature 100.5 F H Pulse Rate 74 68 Respiratory Rate 20 Blood Pressure 138/87 Pulse Oximetry 97 Oxygen Delivery Fraction of Inspired Oxygen 40 12/09/24 13:00 12/09/24 13:21 12/09/24 13:22 Temperature 100.5 F H Pulse Rate 76 64 68 Respiratory Rate 22 H 20 Blood Pressure 136/95 H Pulse Oximetry 96 96 Oxygen Delivery Mechanical Ventilation Fraction of Inspired Oxygen 40 12/09/24 13:32 12/09/24 13:32 12/09/24 14:00 Temperature Pulse Rate 66 66 79 Respiratory Rate 20 20 Blood Pressure Pulse Oximetry Oxygen Delivery Fraction of Inspired Oxygen 12/09/24 14:00 12/09/24 14:00 12/09/24 14:00 Temperature 100.3 F H Pulse Rate 79 79 79 Respiratory Rate 26 H 26 H 26 H Blood Pressure 145/102 H Pulse Oximetry 98 Oxygen Delivery Fraction of Inspired Oxygen 12/09/24 15:00 12/09/24 16:00 12/09/24 16:00 Temperature 100.3 F H 100.3 F H Pulse Rate 78 78 78 Respiratory Rate 25 H 23 H 25 H Blood Pressure 142/91 H 145/90 H Pulse Oximetry 98 98 Oxygen Delivery Fraction of Inspired Oxygen 12/09/24 16:00 12/09/24 16:00 12/09/24 16:00 Temperature Pulse Rate 84 Respiratory Rate Blood Pressure Pulse Oximetry 98 Oxygen Delivery Mechanical Ventilation Fraction of Inspired Oxygen 40 40 12/09/24 16:01 12/09/24 16:01 12/09/24 16:20 Temperature Pulse Rate 78 78 72 Respiratory Rate 23 H 23 H Blood Pressure Pulse Oximetry 96 Oxygen Delivery Mechanical Ventilation Fraction of Inspired Oxygen 40 12/09/24 17:00 12/09/24 18:00 12/09/24 18:00 Temperature 100.3 F H 100.2 F H Pulse Rate 79 73 73 Respiratory Rate 22 H 22 H Blood Pressure 135/91 H 146/95 H Pulse Oximetry 96 98 Oxygen Delivery Fraction of Inspired Oxygen 12/09/24 18:00 12/09/24 18:00 12/09/24 18:16 Temperature Pulse Rate 73 73 75 Respiratory Rate 22 H 22 H 23 H Blood Pressure Pulse Oximetry Oxygen Delivery Fraction of Inspired Oxygen 12/09/24 18:16 12/09/24 18:17 12/09/24 18:17 Temperature Pulse Rate 75 73 73 Respiratory Rate 23 H 22 H 22 H Blood Pressure Pulse Oximetry Oxygen Delivery Fraction of Inspired Oxygen 12/09/24 19:00 12/09/24 19:25 12/09/24 19:25 Temperature 100.3 F H Pulse Rate 62 71 71 Respiratory Rate 22 H 24 H Blood Pressure 136/91 H Pulse Oximetry 97 98 Oxygen Delivery Mechanical Ventilation Fraction of Inspired Oxygen 40 12/09/24 20:00 12/09/24 20:00 12/09/24 20:00 Temperature 100.3 F H Pulse Rate 79 75 75 Respiratory Rate 28 H 27 H 27 H Blood Pressure 123/109 H Pulse Oximetry 97 Oxygen Delivery Fraction of Inspired Oxygen 12/09/24 20:00 12/09/24 20:00 12/09/24 20:21 Temperature Pulse Rate 74 Respiratory Rate Blood Pressure 150/98 H Pulse Oximetry Oxygen Delivery Fraction of Inspired Oxygen 40 12/09/24 20:42 12/09/24 20:42 12/09/24 21:00 Temperature 99.9 F H Pulse Rate 81 81 80 Respiratory Rate 24 H 24 H 25 H Blood Pressure 156/96 H Pulse Oximetry 95 Oxygen Delivery Fraction of Inspired Oxygen 12/09/24 22:00 12/09/24 22:00 12/09/24 22:00 Temperature 99.8 F H Pulse Rate 81 76 76 Respiratory Rate 21 H 20 20 Blood Pressure 165/93 H Pulse Oximetry 94 Oxygen Delivery Fraction of Inspired Oxygen 12/09/24 22:00 12/09/24 22:20 12/09/24 22:54 Temperature Pulse Rate 76 75 77 Respiratory Rate 24 H Blood Pressure Pulse Oximetry 94 Oxygen Delivery Mechanical Ventilation Fraction of Inspired Oxygen 40 12/09/24 22:54 12/09/24 23:00 12/10/24 00:00 Temperature 99.7 F H 99.8 F H Pulse Rate 77 77 86 Respiratory Rate 24 H 23 H 20 Blood Pressure 159/99 H 153/86 H Pulse Oximetry 95 95 Oxygen Delivery Fraction of Inspired Oxygen 12/10/24 00:00 12/10/24 00:00 12/10/24 00:00 Temperature Pulse Rate 78 78 Respiratory Rate 25 H 25 H Blood Pressure Pulse Oximetry Oxygen Delivery Fraction of Inspired Oxygen 40 12/10/24 00:00 12/10/24 01:00 12/10/24 01:14 Temperature 100.0 F H Pulse Rate 77 78 78 Respiratory Rate 24 H 24 H Blood Pressure 143/93 H Pulse Oximetry 97 Oxygen Delivery Fraction of Inspired Oxygen 12/10/24 01:19 12/10/24 01:19 12/10/24 01:24 Temperature Pulse Rate 78 78 81 Respiratory Rate 24 H 26 H Blood Pressure Pulse Oximetry 96 Oxygen Delivery Mechanical Ventilation Fraction of Inspired Oxygen 40 12/10/24 01:26 12/10/24 01:30 12/10/24 02:00 Temperature Pulse Rate 84 81 87 Respiratory Rate 24 H 26 H 25 H Blood Pressure Pulse Oximetry Oxygen Delivery Fraction of Inspired Oxygen 12/10/24 02:00 12/10/24 02:00 12/10/24 02:00 Temperature 100.0 F H Pulse Rate 87 89 88 Respiratory Rate 25 H 22 H Blood Pressure 111/99 H Pulse Oximetry 96 Oxygen Delivery Fraction of Inspired Oxygen 12/10/24 03:00 12/10/24 03:46 12/10/24 03:46 Temperature 99.6 F Pulse Rate 84 83 83 Respiratory Rate 19 20 20 Blood Pressure 155/93 H Pulse Oximetry 93 Oxygen Delivery Fraction of Inspired Oxygen 12/10/24 03:48 12/10/24 03:48 12/10/24 04:00 Temperature Pulse Rate 83 83 81 Respiratory Rate 20 20 20 Blood Pressure Pulse Oximetry Oxygen Delivery Fraction of Inspired Oxygen 12/10/24 04:00 12/10/24 04:00 12/10/24 04:00 Temperature 99.5 F Pulse Rate 81 81 Respiratory Rate 20 20 Blood Pressure 134/90 Pulse Oximetry 92 Oxygen Delivery Fraction of Inspired Oxygen 40 12/10/24 04:00 12/10/24 05:00 12/10/24 05:20 Temperature 99.4 F Pulse Rate 82 80 75 Respiratory Rate 19 Blood Pressure 167/90 H Pulse Oximetry 96 91 Oxygen Delivery Mechanical Ventilation Fraction of Inspired Oxygen 40 12/10/24 06:00 12/10/24 06:00 12/10/24 06:00 Temperature Pulse Rate 80 80 74 Respiratory Rate 22 H 22 H Blood Pressure Pulse Oximetry Oxygen Delivery Fraction of Inspired Oxygen 12/10/24 06:00 12/10/24 06:35 12/10/24 06:39 Temperature 99.5 F Pulse Rate 74 75 78 Respiratory Rate 24 H 20 23 H Blood Pressure 145/84 H Pulse Oximetry 96 Oxygen Delivery Fraction of Inspired Oxygen 12/10/24 06:39 12/10/24 07:01 12/10/24 08:00 Temperature 99.6 F 99.7 F H Pulse Rate 78 77 67 Respiratory Rate 23 H 23 H 22 H Blood Pressure 138/79 154/101 H Pulse Oximetry 96 96 Oxygen Delivery Fraction of Inspired Oxygen 12/10/24 08:00 12/10/24 08:10 12/10/24 08:15 Temperature Pulse Rate 76 76 72 Respiratory Rate 22 H 22 H 22 H Blood Pressure Pulse Oximetry Oxygen Delivery Fraction of Inspired Oxygen 12/10/24 08:20 12/10/24 08:28 12/10/24 08:32 Temperature Pulse Rate 76 76 69 Respiratory Rate 21 H 21 H Blood Pressure Pulse Oximetry 95 Oxygen Delivery Mechanical Ventilation Fraction of Inspired Oxygen 40 12/10/24 08:40 12/10/24 09:00 12/10/24 09:08 Temperature 99.7 F H Pulse Rate 73 73 78 Respiratory Rate 20 20 20 Blood Pressure 125/66 Pulse Oximetry 94 Oxygen Delivery Fraction of Inspired Oxygen 12/10/24 09:08 12/10/24 09:13 12/10/24 09:13 Temperature Pulse Rate 78 77 77 Respiratory Rate 20 20 20 Blood Pressure Pulse Oximetry Oxygen Delivery Fraction of Inspired Oxygen 12/10/24 10:00 12/10/24 10:00 12/10/24 10:30 Temperature 99.2 F Pulse Rate 75 75 75 Respiratory Rate 20 20 20 Blood Pressure 144/88 H Pulse Oximetry 94 Oxygen Delivery Fraction of Inspired Oxygen 12/10/24 11:00 12/10/24 11:25 12/10/24 11:49 Temperature 98.9 F Pulse Rate 68 60 62 Respiratory Rate 20 20 Blood Pressure 129/75 Pulse Oximetry 92 94 Oxygen Delivery Mechanical Ventilation Fraction of Inspired Oxygen 40 12/10/24 11:49 Temperature Pulse Rate 62 Respiratory Rate 20 Blood Pressure Pulse Oximetry Oxygen Delivery Fraction of Inspired Oxygen Intake/Output Intake/Output: Intake & Output 12/07/24 12/08/24 12/09/24 12/10/24 23:59 23:59 23:59 23:59 Intake Total 2027.0 1879.1 4263.7 1274.8 Output Total 3055 2105 1725 1150 Balance -1028.0 -225.9 2538.7 124.8 Meds/Results Medications: Active Medications Generic Name Dose Route Start Last Admin Trade Name Freq PRN Reason Stop Dose Admin Acetaminophen 650 mg 11/26/24 14:25 12/07/24 04:00 Acetaminophen 325 Mg Tablet PO 650 mg Q6H PRN Administration Mild Pain (1-3) or Fever Acetylcysteine 200 mg 11/28/24 08:55 12/10/24 08:27 Acetylcysteine 20% Inhal Soln 800 Mg/4 Ml Vial INHALATION 200 mg Q6HRT EDMUNDO Administration Apixaban 5 mg 11/26/24 21:00 12/07/24 21:07 Apixaban 5 Mg Tablet PO 5 mg On Hold: 12/08/24 07:15 Q12HR EDMUNDO Administration Bisacodyl 10 mg 12/09/24 09:00 12/10/24 09:16 Bisacodyl 10 Mg Suppository RECTAL 10 mg QAM EDMUNDO Administration Dextrose 12.5 gm 11/26/24 16:15 Dextrose 50% 25 Gm/50 Ml Syringe IV PUSH PRN PRN Hypoglycemia Protocol Glucagon 1 mg 11/26/24 16:15 Glucagon For Inj 1 Mg Vial IM PRN PRN Hypoglycemia Protocol Glucose 15 gm 11/26/24 16:15 Glucose Oral Gel 15 Gm Of Glucse In 37.5 Gm Tube PO PRN PRN Hypoglycemia Protocol Heparin Sodium (Porcine) 10,000 units 12/08/24 07:12 Heparin Sodium 5,000 Units/Ml Vial IV PUSH PRN PRN aPTT less than 55 seconds Heparin Sodium (Porcine) 5,000 units 12/08/24 07:12 12/10/24 01:46 Heparin Sodium 5,000 Units/Ml Vial IV PUSH 5,000 units PRN PRN Administration aPTT 55 - 70 seconds Dextrose 1,000 mls @ 100 mls/hr 11/26/24 16:15 Dextrose 5% 1,000 Ml IVPB PRN PRN Hypoglycemia Protocol Dexmedetomidine HCl 400 mcg in 100 mls @ 35 mls/hr 12/06/24 12:25 12/10/24 11:49 Precedex 400 Mcg/100 Ml IV CONT 0.7 mcg/kg/hr .Q2H52M EDMUNDO 35 mls/hr Protocol Administration 0.7 MCG/KG/HR Heparin Sodium/Dextrose 25,000 units in 250 mls @ 21 mls/hr 12/08/24 07:15 12/10/24 09:07 Heparin Sodium/D5w 100 Units/Ml IV CONT 2,100 units/hr .[id number] EDMUNDO 21 mls/hr Protocol Titration 2,100 UNITS/HR Ibuprofen 400 mg/ Sodium 104 mls @ 208 mls/hr 12/08/24 13:16 12/09/24 02:26 Chloride IVPB 12/10/24 13:15 Infused Q6H PRN Infusion Fever >101 Propofol 100 mls @ 24 mls/hr 12/08/24 16:20 12/10/24 10:30 Diprivan IV CONT 20 mcg/kg/min .Q4H10M EDMUNDO 24 mls/hr Protocol Titration 20 MCG/KG/MIN Vancomycin HCl 1,500 mg in 500 mls @ 250 mls/hr 12/09/24 21:00 12/10/24 09:46 Vancomycin 1,500 Mg/Ns 500 Ml IVPB 250 mls/hr Q12H EDMUNDO Administration Meropenem 1 gm/ Sodium 100 mls @ 200 mls/hr 12/09/24 14:00 12/10/24 06:50 Chloride IVPB Infused Q8HR EDMUNDO Infusion Insulin Aspart 3 - 6 units 11/28/24 06:50 12/10/24 11:48 Insulin Aspart (*Bkc) 100 Units/Ml SUB-Q Not Given Q6HR [facility] Protocol Insulin Glargine 25 units 12/01/24 09:00 12/07/24 08:34 Insulin Glargine (*Bkc) 100 Units/Ml SUB-Q 25 units On Hold: 12/08/24 07:18 QAM [facility] Administration Ipratropium [place] 0.5 mg 11/29/24 08:00 12/10/24 08:27 Ipratropium Br 0.02% Inh Soln 0.5 Mg/2.5 Ml Vial INHALATION 0.5 mg Q6HRT [facility] Administration Levalbuterol HCl 1.25 mg 11/29/24 20:00 12/10/24 08:27 Levalbuterol Neb 1.25 Mg/3 Ml INHALATION 1.25 mg Q6HRT EDMUNDO Administration Linaclotide 145 mcg 12/10/24 06:30 12/10/24 06:18 Linaclotide 145 Mcg Capsule PO 145 mcg DAILY@0630 EDMUNDO Administration Multi-Ingred Cream/Lotion/Oil/Oint 1 applic 11/28/24 09:00 12/10/24 09:17 Mineral Oil/White Petrolatum Ointment EACH EYE 1 applic Q12HR EDMUNDO Administration Pantoprazole Sodium 40 mg 11/29/24 09:00 12/10/24 09:16 Pantoprazole Sodium Iv 40 Mg Vial IV PUSH 40 mg QAM EDMUNDO Administration Polyethylene Glycol 17 gm 12/08/24 13:35 12/10/24 06:18 Polyethylene Glycol 3350 17 Gm Powd.Pack PO 17 gm Q8HR EDMUNDO Administration Senna/Docusate Sodium 1 tab 12/06/24 21:00 12/07/24 21:07 Senna/Docusate Sodium Tablet PO 1 tab On Hold: 12/08/24 07:17 HS EDMUNDO Administration Sertraline HCl 50 mg 11/27/24 09:00 11/28/24 12:06 Sertraline Hcl 50 Mg Tablet PO 50 mg On Hold: 11/29/24 08:16 DAILY EDMUNDO Administration Sodium Chloride 10 ml 11/28/24 14:00 12/10/24 06:18 Central Line Flush IV PUSH 10 ml Q8HR EDMUNDO Administration Sodium Chloride 20 ml 11/28/24 11:53 12/03/24 05:31 Central Line Flush IV PUSH 20 ml PRN PRN Administration after blood draws Radiology Results: ITS Impressions Venous Doppler Study 12/07/24 13:02 IMPRESSION: 1: No lower extremity deep venous thrombosis. Chest X-Ray 12/10/24 08:53 IMPRESSION: 1. Volume loss left lung with lower lobe atelectasis, possible superimposed airspace disease and/or large effusion. 2. Persistent interstitial edema and/or airspace disease right lung. Labs Labs: Laboratory Results - last 24 hr 12/09/24 12/09/24 12/09/24 11:47 11:53 18:26 WBC RBC Hgb Hct MCV MCH MCHC RDW Plt Count MPV Immature Gran % (Auto) Neut % (Auto) Lymph % (Auto) [place] % (Auto) Eos % (Auto) Baso % (Auto) Lymph # (Auto) [place] # (Auto) Eos # (Auto) Baso # (Auto) Abs Immat Gran (auto) Absolute Neuts (auto) Absolute Nucleated RBC Nucleated RBC % APTT 64.4 H Puncture Site ABG pH ABG pCO2 ABG pO2 ABG PO2/FiO2 Ratio ABG HCO3 ABG O2 Saturation ABG O2 Content ABG Base Excess A-a Gradient Oxyhemoglobin Carboxyhemoglobin Methemoglobin Reduced Hemoglobin Total Hemoglobin O2 Delivery Device O2 Liters/Min Minute Volume Vent Rate Vent Mode FiO2 Tidal Volume PEEP Peak Inspir Pressure Pressure Support Sodium Potassium Chloride Carbon Dioxide Anion Gap BUN Creatinine Estim Creat Clear Calc Estimated GFR Glucose POC Capillary Glucose 148 H 144 H Lactic Acid Calcium Phosphorus Magnesium Total Bilirubin AST ALT Alkaline Phosphatase C-Reactive Protein Total Protein Albumin 12/09/24 12/10/24 12/10/24 18:30 00:14 01:10 WBC RBC Hgb Hct MCV MCH MCHC RDW Plt Count MPV Immature Gran % (Auto) Neut % (Auto) Lymph % (Auto) [place] % (Auto) Eos % (Auto) Baso % (Auto) Lymph # (Auto) [place] # (Auto) Eos # (Auto) Baso # (Auto) Abs Immat Gran (auto) Absolute Neuts (auto) Absolute Nucleated RBC Nucleated RBC % APTT 97.5 H 79.3 H Puncture Site ABG pH ABG pCO2 ABG pO2 ABG PO2/FiO2 Ratio ABG HCO3 ABG O2 Saturation ABG O2 Content ABG Base Excess A-a Gradient Oxyhemoglobin Carboxyhemoglobin Methemoglobin Reduced Hemoglobin Total Hemoglobin O2 Delivery Device O2 Liters/Min Minute Volume Vent Rate Vent Mode FiO2 Tidal Volume PEEP Peak Inspir Pressure Pressure Support Sodium Potassium Chloride Carbon Dioxide Anion Gap BUN Creatinine Estim Creat Clear Calc Estimated GFR Glucose POC Capillary Glucose 145 H Lactic Acid Calcium Phosphorus Magnesium Total Bilirubin AST ALT Alkaline Phosphatase C-Reactive Protein Total Protein Albumin 12/10/24 12/10/24 12/10/24 04:45 05:20 08:23 WBC 8.2 RBC 4.74 Hgb 12.9 L Hct 42.5 MCV 89.7 MCH 27.2 MCHC 30.4 L RDW 16.0 H Plt Count 160 MPV 10.0 Immature Gran % (Auto) 0.4 Neut % (Auto) 71.9 Lymph % (Auto) 17.2 L [place] % (Auto) 7.2 Eos % (Auto) 2.8 Baso % (Auto) 0.5 Lymph # (Auto) 1.41 [place] # (Auto) 0.6 Eos # (Auto) 0.2 Baso # (Auto) 0.0 Abs Immat Gran (auto) 0.03 Absolute Neuts (auto) 5.9 Absolute Nucleated RBC 0.000 Nucleated RBC % 0.0 APTT 82.1 H Puncture Site Left radial ABG pH 7.453 H ABG pCO2 44.5 ABG pO2 70.9 L ABG PO2/FiO2 Ratio 1.77 ABG HCO3 30.4 H ABG O2 Saturation 94.9 L ABG O2 Content 18.6 ABG Base Excess 5.7 A-a Gradient 163.1 Oxyhemoglobin 93.2 Carboxyhemoglobin 1.0 Methemoglobin 0.1 Reduced Hemoglobin 5.7 H Total Hemoglobin 14.2 O2 Delivery Device Ventilator O2 Liters/Min Not Reportable Minute Volume Not Reportable Vent Rate 20 Vent Mode Cmv FiO2 40 Tidal Volume 450 PEEP 12 Peak Inspir Pressure Not Reportable Pressure Support Not Reportable Sodium 134 L Potassium 3.5 Chloride 98 Carbon Dioxide 31 H Anion Gap 5 BUN 25 H Creatinine 0.67 L Estim Creat Clear Calc 163 Estimated GFR > 60 Glucose 140 H POC Capillary Glucose Lactic Acid 1.1 Calcium 8.2 L Phosphorus 3.5 Magnesium 1.7 Total Bilirubin 1.2 AST 39 ALT 30 Alkaline Phosphatase 111 C-Reactive Protein 4.6 H Total Protein 6.5 Albumin 3.0 L Quality VTE Prophylaxis VTE prophylaxis: pharmacologic ordered
--- NOTE | 2024-12-10 14:33 | P.PNGI_ITS ---
Progress Note: A&P Assessment and Plan (1) Chronic constipation: Code(s): K59.09 - Other constipation Status: Acute Assessment and Plan: on miralax, dulcolax continue with linzess ngt in place but has not started tf, probably can start low rate and reassess no obvious output from ngt or signs of obstruction but still not BM plan for trach and peg early next week due to prolonged intubation and respiratory failure (2) Acute hypoxic respiratory failure: Code(s): J96.01 - Acute respiratory failure with hypoxia Status: Acute Assessment and Plan: still intubated will require trach (3) Class 3 severe obesity with body mass index (BMI) of 60.0 to 69.9 in adult: Qualifiers: Obesity type: due to excess calories Serious obesity comorbidity pres ence: with serious comorbidity Qualified Code(s): E66.813 - Obesity, class 3; Z68.44 - Body mass index [BMI] 60.0-69.9, adult Code(s): E66.813 - Obesity, class 3; Z68.44 - Body mass index [BMI] 60.0-69.9, adult Status: Acute (4) Pneumonia: Code(s): J18.9 - Pneumonia, unspecified organism Status: Acute (5) Atrial fibrillation with RVR: Code(s): I48.91 - Unspecified atrial fibrillation Status: Acute Subjective Date/time seen: 12/10/24 14:33 Interval history: no changes, still intubated brother at bedside Review of Systems Review of Systems: All systems reviewed & are unremarkable except as noted in HPI and below Exam Narrative: General: Significantly obese gentleman, currently intubated, sedated in no acute distress HEENT:? Pupils equal and reactive, sclera is clear, ETT in place Neck:? Thick and short neck Respiratory:? Decreased air entry bilaterally, no wheezing. Chest: Left breast is larger than the right, induration, erythema and warmth has improved Cardiac:? Distant heart sounds, irregularly irregular Abdomen:? Morbidly. Hypoactive bowel sounds, tympanic on percussion Extremities:? Edema is improving in bilateral lower extremities. Neuro:? Patient is intubated, nods to questions follows simple commands in lower extremities, moves all extremities spontaneously Skin:? Bruising noted on upper extremities, torso, chronic venous stasis changes on bilateral lower extremity Psych:? Unable to assess at this time Objective Data Vital Signs Vital Signs: Vital Signs - 24 hr 12/09/24 15:00 12/09/24 16:00 12/09/24 16:00 Temperature 100.3 F H 100.3 F H Pulse Rate 78 78 78 Respiratory Rate 25 H 23 H 25 H Blood Pressure 142/91 H 145/90 H Pulse Oximetry 98 98 Oxygen Delivery Fraction of Inspired Oxygen 12/09/24 16:00 12/09/24 16:00 12/09/24 16:00 Temperature Pulse Rate 84 Respiratory Rate Blood Pressure Pulse Oximetry 98 Oxygen Delivery Mechanical Ventilation Fraction of Inspired Oxygen 40 40 12/09/24 16:01 12/09/24 16:01 12/09/24 16:20 Temperature Pulse Rate 78 78 72 Respiratory Rate 23 H 23 H Blood Pressure Pulse Oximetry 96 Oxygen Delivery Mechanical Ventilation Fraction of Inspired Oxygen 40 12/09/24 17:00 12/09/24 18:00 12/09/24 18:00 Temperature 100.3 F H 100.2 F H Pulse Rate 79 73 73 Respiratory Rate 22 H 22 H Blood Pressure 135/91 H 146/95 H Pulse Oximetry 96 98 Oxygen Delivery Fraction of Inspired Oxygen 12/09/24 18:00 12/09/24 18:00 12/09/24 18:16 Temperature Pulse Rate 73 73 75 Respiratory Rate 22 H 22 H 23 H Blood Pressure Pulse Oximetry Oxygen Delivery Fraction of Inspired Oxygen 12/09/24 18:16 12/09/24 18:17 12/09/24 18:17 Temperature Pulse Rate 75 73 73 Respiratory Rate 23 H 22 H 22 H Blood Pressure Pulse Oximetry Oxygen Delivery Fraction of Inspired Oxygen 12/09/24 19:00 12/09/24 19:25 12/09/24 19:25 Temperature 100.3 F H Pulse Rate 62 71 71 Respiratory Rate 22 H 24 H Blood Pressure 136/91 H Pulse Oximetry 97 98 Oxygen Delivery Mechanical Ventilation Fraction of Inspired Oxygen 40 12/09/24 20:00 12/09/24 20:00 12/09/24 20:00 Temperature 100.3 F H Pulse Rate 79 75 75 Respiratory Rate 28 H 27 H 27 H Blood Pressure 123/109 H Pulse Oximetry 97 Oxygen Delivery Fraction of Inspired Oxygen 12/09/24 20:00 12/09/24 20:00 12/09/24 20:21 Temperature Pulse Rate 74 Respiratory Rate Blood Pressure 150/98 H Pulse Oximetry Oxygen Delivery Fraction of Inspired Oxygen 40 12/09/24 20:42 12/09/24 20:42 12/09/24 21:00 Temperature 99.9 F H Pulse Rate 81 81 80 Respiratory Rate 24 H 24 H 25 H Blood Pressure 156/96 H Pulse Oximetry 95 Oxygen Delivery Fraction of Inspired Oxygen 12/09/24 22:00 12/09/24 22:00 12/09/24 22:00 Temperature 99.8 F H Pulse Rate 81 76 76 Respiratory Rate 21 H 20 20 Blood Pressure 165/93 H Pulse Oximetry 94 Oxygen Delivery Fraction of Inspired Oxygen 12/09/24 22:00 12/09/24 22:20 12/09/24 22:54 Temperature Pulse Rate 76 75 77 Respiratory Rate 24 H Blood Pressure Pulse Oximetry 94 Oxygen Delivery Mechanical Ventilation Fraction of Inspired Oxygen 40 12/09/24 22:54 12/09/24 23:00 12/10/24 00:00 Temperature 99.7 F H 99.8 F H Pulse Rate 77 77 86 Respiratory Rate 24 H 23 H 20 Blood Pressure 159/99 H 153/86 H Pulse Oximetry 95 95 Oxygen Delivery Fraction of Inspired Oxygen 12/10/24 00:00 12/10/24 00:00 12/10/24 00:00 Temperature Pulse Rate 78 78 Respiratory Rate 25 H 25 H Blood Pressure Pulse Oximetry Oxygen Delivery Fraction of Inspired Oxygen 40 12/10/24 00:00 12/10/24 01:00 12/10/24 01:14 Temperature 100.0 F H Pulse Rate 77 78 78 Respiratory Rate 24 H 24 H Blood Pressure 143/93 H Pulse Oximetry 97 Oxygen Delivery Fraction of Inspired Oxygen 12/10/24 01:19 12/10/24 01:19 12/10/24 01:24 Temperature Pulse Rate 78 78 81 Respiratory Rate 24 H 26 H Blood Pressure Pulse Oximetry 96 Oxygen Delivery Mechanical Ventilation Fraction of Inspired Oxygen 40 12/10/24 01:26 12/10/24 01:30 12/10/24 02:00 Temperature Pulse Rate 84 81 87 Respiratory Rate 24 H 26 H 25 H Blood Pressure Pulse Oximetry Oxygen Delivery Fraction of Inspired Oxygen 12/10/24 02:00 12/10/24 02:00 12/10/24 02:00 Temperature 100.0 F H Pulse Rate 87 89 88 Respiratory Rate 25 H 22 H Blood Pressure 111/99 H Pulse Oximetry 96 Oxygen Delivery Fraction of Inspired Oxygen 12/10/24 03:00 12/10/24 03:46 12/10/24 03:46 Temperature 99.6 F Pulse Rate 84 83 83 Respiratory Rate 19 20 20 Blood Pressure 155/93 H Pulse Oximetry 93 Oxygen Delivery Fraction of Inspired Oxygen 12/10/24 03:48 12/10/24 03:48 12/10/24 04:00 Temperature Pulse Rate 83 83 81 Respiratory Rate 20 20 20 Blood Pressure Pulse Oximetry Oxygen Delivery Fraction of Inspired Oxygen 12/10/24 04:00 12/10/24 04:00 12/10/24 04:00 Temperature 99.5 F Pulse Rate 81 81 Respiratory Rate 20 20 Blood Pressure 134/90 Pulse Oximetry 92 Oxygen Delivery Fraction of Inspired Oxygen 40 12/10/24 04:00 12/10/24 05:00 12/10/24 05:20 Temperature 99.4 F Pulse Rate 82 80 75 Respiratory Rate 19 Blood Pressure 167/90 H Pulse Oximetry 96 91 Oxygen Delivery Mechanical Ventilation Fraction of Inspired Oxygen 40 12/10/24 06:00 12/10/24 06:00 12/10/24 06:00 Temperature Pulse Rate 80 80 74 Respiratory Rate 22 H 22 H Blood Pressure Pulse Oximetry Oxygen Delivery Fraction of Inspired Oxygen 12/10/24 06:00 12/10/24 06:35 12/10/24 06:39 Temperature 99.5 F Pulse Rate 74 75 78 Respiratory Rate 24 H 20 23 H Blood Pressure 145/84 H Pulse Oximetry 96 Oxygen Delivery Fraction of Inspired Oxygen 12/10/24 06:39 12/10/24 07:01 12/10/24 08:00 Temperature 99.6 F 99.7 F H Pulse Rate 78 77 67 Respiratory Rate 23 H 23 H 22 H Blood Pressure 138/79 154/101 H Pulse Oximetry 96 96 Oxygen Delivery Fraction of Inspired Oxygen 12/10/24 08:00 12/10/24 08:00 12/10/24 08:00 Temperature Pulse Rate 76 77 Respiratory Rate 22 H Blood Pressure Pulse Oximetry Oxygen Delivery Fraction of Inspired Oxygen 40 12/10/24 08:00 12/10/24 08:10 12/10/24 08:15 Temperature Pulse Rate 76 72 Respiratory Rate 22 H 22 H Blood Pressure Pulse Oximetry 97 Oxygen Delivery Fraction of Inspired Oxygen 12/10/24 08:20 12/10/24 08:28 12/10/24 08:32 Temperature Pulse Rate 76 76 69 Respiratory Rate 21 H 21 H Blood Pressure Pulse Oximetry 95 Oxygen Delivery Mechanical Ventilation Fraction of Inspired Oxygen 40 12/10/24 08:40 12/10/24 09:00 12/10/24 09:08 Temperature 99.7 F H Pulse Rate 73 73 78 Respiratory Rate 20 20 20 Blood Pressure 125/66 Pulse Oximetry 94 Oxygen Delivery Fraction of Inspired Oxygen 12/10/24 09:08 12/10/24 09:13 12/10/24 09:13 Temperature Pulse Rate 78 77 77 Respiratory Rate 20 20 20 Blood Pressure Pulse Oximetry Oxygen Delivery Fraction of Inspired Oxygen 12/10/24 10:00 12/10/24 10:00 12/10/24 10:00 Temperature 99.2 F Pulse Rate 75 75 75 Respiratory Rate 20 20 Blood Pressure 144/88 H Pulse Oximetry 94 Oxygen Delivery Fraction of Inspired Oxygen 12/10/24 10:30 12/10/24 11:00 12/10/24 11:25 Temperature 98.9 F Pulse Rate 75 68 60 Respiratory Rate 20 20 Blood Pressure 129/75 Pulse Oximetry 92 94 Oxygen Delivery Mechanical Ventilation Fraction of Inspired Oxygen 40 12/10/24 11:49 12/10/24 11:49 12/10/24 11:58 Temperature Pulse Rate 62 62 68 Respiratory Rate 20 20 20 Blood Pressure Pulse Oximetry Oxygen Delivery Fraction of Inspired Oxygen 12/10/24 11:58 12/10/24 12:00 12/10/24 12:00 Temperature 98.7 F Pulse Rate 68 66 Respiratory Rate 20 20 Blood Pressure 132/88 Pulse Oximetry 96 Oxygen Delivery Fraction of Inspired Oxygen 40 12/10/24 12:00 12/10/24 12:00 12/10/24 13:00 Temperature 99.2 F Pulse Rate 65 83 Respiratory Rate 22 H Blood Pressure 145/80 H Pulse Oximetry 96 94 Oxygen Delivery Fraction of Inspired Oxygen 12/10/24 13:02 12/10/24 14:23 12/10/24 14:25 Temperature Pulse Rate 57 L 61 62 Respiratory Rate 20 20 Blood Pressure Pulse Oximetry 95 Oxygen Delivery Mechanical Ventilation Fraction of Inspired Oxygen 40 Intake/Output Intake/Output: Intake & Output 12/07/24 12/08/24 12/09/24 12/10/24 23:59 23:59 23:59 23:59 Intake Total 7.0 1879.1 4263.7 1352.6 Output Total 3055 2105 1725 1150 Balance -1028.0 -225.9 2538.7 202.6 Meds/Results Medications: Active Medications Generic Name Dose Route Start Last Admin Trade Name Freq PRN Reason Stop Dose Admin Acetaminophen 650 mg 11/26/24 14:25 12/07/24 04:00 Acetaminophen 325 Mg Tablet PO 650 mg Q6H PRN Administration Mild Pain (1-3) or Fever Acetylcysteine 200 mg 11/28/24 08:55 12/10/24 14:21 Acetylcysteine 20% Inhal Soln 800 Mg/4 Ml Vial INHALATION 200 mg Q6HRT EDMUNDO Administration Apixaban 5 mg 11/26/24 21:00 12/07/24 21:07 Apixaban 5 Mg Tablet PO 5 mg On Hold: 12/08/24 07:15 Q12HR EDMUNDO Administration Bisacodyl 10 mg 12/09/24 09:00 12/10/24 09:16 Bisacodyl 10 Mg Suppository RECTAL 10 mg QAM EDMUNDO Administration Dextrose 12.5 gm 11/26/24 16:15 Dextrose 50% 25 Gm/50 Ml Syringe IV PUSH PRN PRN Hypoglycemia Protocol Glucagon 1 mg 11/26/24 16:15 Glucagon For Inj 1 Mg Vial IM PRN PRN Hypoglycemia Protocol Glucose 15 gm 11/26/24 16:15 Glucose Oral Gel 15 Gm Of Glucse In 37.5 Gm Tube PO PRN PRN Hypoglycemia Protocol Heparin Sodium (Porcine) 10,000 units 12/08/24 07:12 Heparin Sodium 5,000 Units/Ml Vial IV PUSH PRN PRN aPTT less than 55 seconds Heparin Sodium (Porcine) 5,000 units 12/08/24 07:12 12/10/24 01:46 Heparin Sodium 5,000 Units/Ml Vial IV PUSH 5,000 units PRN PRN Administration aPTT 55 - 70 seconds Dextrose 1,000 mls @ 100 mls/hr 11/26/24 16:15 Dextrose 5% 1,000 Ml IVPB PRN PRN Hypoglycemia Protocol Dexmedetomidine HCl 400 mcg in 100 mls @ 30 mls/hr 12/06/24 12:25 12/10/24 13:02 Precedex 400 Mcg/100 Ml IV CONT 0.6 mcg/kg/hr .Q3H20M EDMUNDO 30 mls/hr Protocol Titration 0.6 MCG/KG/HR Heparin Sodium/Dextrose 25,000 units in 250 mls @ 21 mls/hr 12/08/24 07:15 12/10/24 09:07 Heparin Sodium/D5w 100 Units/Ml IV CONT 2,100 units/hr .Q84Z25P EDMUNDO 21 mls/hr Protocol Titration 2,100 UNITS/HR Propofol 100 mls @ 18 mls/hr 12/08/24 16:20 12/10/24 11:58 Diprivan IV CONT 15 mcg/kg/min .Q5H34M EDMUNDO 18 mls/hr Protocol Administration 15 MCG/KG/MIN Vancomycin HCl 1,500 mg in 500 mls @ 250 mls/hr 12/09/24 21:00 12/10/24 09:46 Vancomycin 1,500 Mg/Ns 500 Ml IVPB 250 mls/hr Q12H EDMUNDO Administration Meropenem 1 gm/ Sodium 100 mls @ 200 mls/hr 12/09/24 14:00 12/10/24 06:50 Chloride IVPB Infused Q8HR [facility] Infusion Insulin Aspart 3 - 6 units 11/28/24 06:50 12/10/24 11:48 Insulin Aspart (*Bkc) 100 Units/Ml SUB-Q Not Given Q6HR [facility] Protocol Insulin Glargine 25 units 12/01/24 09:00 12/07/24 08:34 Insulin Glargine (*Bkc) 100 Units/Ml SUB-Q 25 units On Hold: 12/08/24 07:18 QAM EDMUNDO Administration Ipratropium [place] 0.5 mg 11/29/24 08:00 12/10/24 14:22 Ipratropium Br 0.02% Inh Soln 0.5 Mg/2.5 Ml Vial INHALATION 0.5 mg Q6HRT [facility] Administration Levalbuterol HCl 1.25 mg 11/29/24 20:00 12/10/24 14:22 Levalbuterol Neb 1.25 Mg/3 Ml INHALATION 1.25 mg Q6HRT EDMUNDO Administration Linaclotide 145 mcg 12/10/24 06:30 12/10/24 06:18 Linaclotide 145 Mcg Capsule PO 145 mcg DAILY@0630 [facility] Administration Miscellaneous Information 1 each 12/10/24 00:01 Please Renew Propofol. Per [employer] Procedure, It Will Discontinue If Not Renewed. XX 01/09/25 00:00 CLARIFY EDMUNDO Multi-Ingred Cream/Lotion/Oil/Oint 1 applic 11/28/24 09:00 12/10/24 09:17 Mineral Oil/White Petrolatum Ointment EACH EYE 1 applic Q12HR EDMUNDO Administration Pantoprazole Sodium 40 mg 11/29/24 09:00 12/10/24 09:16 Pantoprazole Sodium Iv 40 Mg Vial IV PUSH 40 mg QAM EDMUNDO Administration Polyethylene Glycol 17 gm 12/08/24 13:35 12/10/24 06:18 Polyethylene Glycol 3350 17 Gm Powd.Pack PO 17 gm Q8HR EDMUNDO Administration Senna/Docusate Sodium 1 tab 12/06/24 21:00 12/07/24 21:07 Senna/Docusate Sodium Tablet PO 1 tab On Hold: 12/08/24 07:17 HS EDMUNDO Administration Sertraline HCl 50 mg 11/27/24 09:00 11/28/24 12:06 Sertraline Hcl 50 Mg Tablet PO 50 mg On Hold: 11/29/24 08:16 DAILY EDMUNDO Administration Sodium Chloride 10 ml 11/28/24 14:00 12/10/24 06:18 Central Line Flush IV PUSH 10 ml Q8HR EDMUNDO Administration Sodium Chloride 20 ml 11/28/24 11:53 12/03/24 05:31 Central Line Flush IV PUSH 20 ml PRN PRN Administration after blood draws Radiology Results: ITS Impressions Venous Doppler Study 12/07/24 13:02 IMPRESSION: 1: No lower extremity deep venous thrombosis. Chest X-Ray 12/10/24 08:53 IMPRESSION: 1. Volume loss left lung with lower lobe atelectasis, possible superimposed airspace disease and/or large effusion. 2. Persistent interstitial edema and/or airspace disease right lung. Labs Labs: Laboratory Results - last 24 hr 12/09/24 12/09/24 12/10/24 18:26 18:30 00:14 WBC RBC Hgb Hct MCV MCH MCHC RDW Plt Count MPV Immature Gran % (Auto) Neut % (Auto) Lymph % (Auto) Davison % (Auto) Eos % (Auto) Baso % (Auto) Lymph # (Auto) Davison # (Auto) Eos # (Auto) Baso # (Auto) Abs Immat Gran (auto) Absolute Neuts (auto) Absolute Nucleated RBC Nucleated RBC % APTT 97.5 H Puncture Site ABG pH ABG pCO2 ABG pO2 ABG PO2/FiO2 Ratio ABG HCO3 ABG O2 Saturation ABG O2 Content ABG Base Excess A-a Gradient Oxyhemoglobin Carboxyhemoglobin Methemoglobin Reduced Hemoglobin Total Hemoglobin O2 Delivery Device O2 Liters/Min Minute Volume Vent Rate Vent Mode FiO2 Tidal Volume PEEP Peak Inspir Pressure Pressure Support Sodium Potassium Chloride Carbon Dioxide Anion Gap BUN Creatinine Estim Creat Clear Calc Estimated GFR Glucose POC Capillary Glucose 144 H 145 H Lactic Acid Calcium Phosphorus Magnesium Total Bilirubin AST ALT Alkaline Phosphatase C-Reactive Protein Total Protein Albumin 12/10/24 12/10/24 12/10/24 01:10 04:45 05:20 WBC 8.2 RBC 4.74 Hgb 12.9 L Hct 42.5 MCV 89.7 MCH 27.2 MCHC 30.4 L RDW 16.0 H Plt Count 160 MPV 10.0 Immature Gran % (Auto) 0.4 Neut % (Auto) 71.9 Lymph % (Auto) 17.2 L Davison % (Auto) 7.2 Eos % (Auto) 2.8 Baso % (Auto) 0.5 Lymph # (Auto) 1.41 Davison # (Auto) 0.6 Eos # (Auto) 0.2 Baso # (Auto) 0.0 Abs Immat Gran (auto) 0.03 Absolute Neuts (auto) 5.9 Absolute Nucleated RBC 0.000 Nucleated RBC % 0.0 APTT 79.3 H Puncture Site Left radial ABG pH 7.453 H ABG pCO2 44.5 ABG pO2 70.9 L ABG PO2/FiO2 Ratio 1.77 ABG HCO3 30.4 H ABG O2 Saturation 94.9 L ABG O2 Content 18.6 ABG Base Excess 5.7 A-a Gradient 163.1 Oxyhemoglobin 93.2 Carboxyhemoglobin 1.0 Methemoglobin 0.1 Reduced Hemoglobin 5.7 H Total Hemoglobin 14.2 O2 Delivery Device Ventilator O2 Liters/Min Not Reportable Minute Volume Not Reportable Vent Rate 20 Vent Mode Cmv FiO2 40 Tidal Volume 450 PEEP 12 Peak Inspir Pressure Not Reportable Pressure Support Not Reportable Sodium 134 L Potassium 3.5 Chloride 98 Carbon Dioxide 31 H Anion Gap 5 BUN 25 H Creatinine 0.67 L Estim Creat Clear Calc 163 Estimated GFR > 60 Glucose 140 H POC Capillary Glucose Lactic Acid 1.1 Calcium 8.2 L Phosphorus 3.5 Magnesium 1.7 Total Bilirubin 1.2 AST 39 ALT 30 Alkaline Phosphatase 111 C-Reactive Protein 4.6 H Total Protein 6.5 Albumin 3.0 L 12/10/24 12/10/24 08:23 11:41 WBC RBC Hgb Hct MCV MCH MCHC RDW Plt Count MPV Immature Gran % (Auto) Neut % (Auto) Lymph % (Auto) Davison % (Auto) Eos % (Auto) Baso % (Auto) Lymph # (Auto) Davison # (Auto) Eos # (Auto) Baso # (Auto) Abs Immat Gran (auto) Absolute Neuts (auto) Absolute Nucleated RBC Nucleated RBC % APTT 82.1 H Puncture Site ABG pH ABG pCO2 ABG pO2 ABG PO2/FiO2 Ratio ABG HCO3 ABG O2 Saturation ABG O2 Content ABG Base Excess A-a Gradient Oxyhemoglobin Carboxyhemoglobin Methemoglobin Reduced Hemoglobin Total Hemoglobin O2 Delivery Device O2 Liters/Min Minute Volume Vent Rate Vent Mode FiO2 Tidal Volume PEEP Peak Inspir Pressure Pressure Support Sodium Potassium Chloride Carbon Dioxide Anion Gap BUN Creatinine Estim Creat Clear Calc Estimated GFR Glucose POC Capillary Glucose 155 H Lactic Acid Calcium Phosphorus Magnesium Total Bilirubin AST ALT Alkaline Phosphatase C-Reactive Protein Total Protein Albumin
[2024-12-10] MEDS: dexmedeTOMIDine 400 MCG/100 ML 400 MCG/100 ML BAG 20 MCG IV CONT ×2 (15:14→20:24)
[2024-12-10 15:46] LABS: Partial Thromboplastin Time 75.1 Seconds (22.3-36.8)
[2024-12-10] MEDS: VANCOMYCIN 2,000 MG/NS 500 ML 2,000 MG/500 ML BAG 250 MG IVPB (21:36)
[2024-12-11] VITALS (50 sets, daily range): BP systolic 123–174; BP diastolic 65–105; PULSE 39–85; RESP 18–26; TEMP 36.3–37.3; O2SAT 91–99
[2024-12-11] MEDS: dexmedeTOMIDine 400 MCG/100 ML 400 MCG/100 ML BAG 20 MCG IV CONT ×5 (01:08→21:09)
[2024-12-11] MEDS: ACETYLCYSTEINE 20% INHAL SOLN 800 MG/4 ML VIAL 200 MG INHALATION ×4 (01:59→19:49)
[2024-12-11] MEDS: IPRATROPIUM BR 0.02% INH SOLN 0.5 MG/2.5 ML VIAL INHALATION ×4 (02:00→19:49)
[2024-12-11] MEDS: PROPOFOL IV EMULSION 100 ML 12 MG IV CONT ×2 (02:31→08:57)
[2024-12-11 04:45] LABS: Alveolar/Arterial O2 Gradient 154.0 mmHg; Carboxyhemoglobin 1.0 % THb (0-2.0); Fractional Inspired Oxygen 40 %; HCO3 ABG 28.7 mEq/l (22.0-26.0); Methemoglobin ABG 0.0 %THb (0-1.5); Oxygen Content ABG 19.4 %vol (16.0-22.0); Oxygen Saturation ABG 96.9 % (95.0-100.0); PCO2 ABG 40.3 mmHg (35.0-45.0); PO2 ABG 84.9 mmHg (80.0-100.0); PO2 FiO2 Ratio Arterial Blood 2.12 %; Reduced Hemoglobin 3.3 %THb (0-5.0)
[2024-12-11 04:47] LABS: Modified Allen's Test Pass; Site Drawn RIGHT RADIAL
[2024-12-11 04:48] LABS: Arterial Blood Gas Tidal Volume 450 ml; Arterial Blood Gas Ventilator rate 20 /MIN
[2024-12-11 06:09] LABS: Hematocrit 44.3 % (42.0-52.0); Hemoglobin 13.3 g/dL (14.0-18.0); Immature Granulocyte Percent A 0.3 % (0-0.5); Lymphocytes Absolute Auto 1.16 K/mm3 (0.9-3.2); Mean Corpuscular HGB Conc 30.0 g/dl (32-36); Mean Corpuscular Hemoglobin 27.0 pg (26-34); Mean Corpuscular Volume 89.9 fl (80-100); Nucleated Red Blood Cells Absolute Auto 0.000 K/mm3 (0.0-0.012); Nucleated Red Blood Cells Perc 0.0 % (0.0-0.2); Platelet Count Result 148 k/mm3 (150-375); Red Blood Count 4.93 M/mm3 (4.6-6.20); White Blood Count 7.0 K/mm3 (4.5-10.0)
[2024-12-11] MEDS: LINACLOTIDE 145 MCG CAPSULE PO (06:10)
[2024-12-11] MEDS: MEROPENEM 1 GM in SODIUM CHLORIDE 0.9% IV 100 ML 200 ML IVPB ×3 (06:10→21:12)
[2024-12-11] MEDS: HEPARIN SOD/D5W 100 UNITS/ML 25,000 UNITS/250 ML BAG 21 UNITS IV CONT ×2 (06:12→18:10)
[2024-12-11 06:23] LABS: Partial Thromboplastin Time 90.1 Seconds (22.3-36.8)
[2024-12-11] MEDS: CENTRAL LINE FLUSH 10 ML IV PUSH ×3 (06:26→22:06)
[2024-12-11 06:37] LABS: Alanine Aminotransferase 26 U/L (6-50); Albumin Level 2.9 g/dL (3.5-5.1); Alkaline Phosphatase 104 U/L (38-126); Anion Gap 5 mmol/L (4-12); Aspartate Amino Transferase 29 U/L (17-59); Bilirubin,Total 1.2 mg/dL (0.2-1.3); Blood Urea Nitrogen 20 mg/dL (9-20); Calcium 8.0 mg/dL (8.4-10.2); Carbon Dioxide 31 mmol/L (22-30); Chloride 98 mmol/L (98-107); Estimated CRCL calculation 167 ml/min; Estimated Glomerular Filt Rate > 60; Glucose 126 mg/dL (65-110); Potassium 3.6 mmol/L (3.4-5.0); Sodium 134 mmol/L (137-145); Total Protein 6.2 g/dL (6.3-8.2); Triglycerides 102 mg/dL (<150)
[2024-12-11] MEDS: FUROSEMIDE INJ 40 MG/4 ML VIAL IV PUSH (08:52)
[2024-12-11] MEDS: PANTOPRAZOLE SODIUM IV 40 MG VIAL IV PUSH (08:52)
[2024-12-11] MEDS: MINERAL OIL/WHITE PETROLATUM OINTMENT 1 APPLIC EACH EYE ×2 (08:53→20:24)
[2024-12-11] MEDS: MAGNESIUM SULF 2 GM/WATER 50ML 2 GM/50 ML BAG IVPB (08:53)
[2024-12-11] MEDS: BISACODYL 10 MG SUPPOSITORY RECTAL (08:53)
[2024-12-11] MEDS: KCL 40 MEQ/WATER 100 ML 100 ML 25 ML IVPB ×2 (08:55→14:03)
--- NOTE | 2024-12-11 09:38 | P.PNINT_ITS ---
Progress Note: A&P Assessment and Plan (1) Fever: Code(s): R50.9 - Fever, unspecified Status: Acute Assessment and Plan: 12/09 and 12/09: Continues to have fevers, currently on levofloxacin for Pseudomonas pneumonia 12/08: Metronidazole due to large bowel obstruction and to cover anaerobes -12/07: lower extremity venous Dopplers are negative -12/07: Urine culture negative urine culture -12/07: Blood culture -preliminary are negative x2 -12/09: Sputum culture pending -12/09: chest x-ray shows atelectasis, increased peep to 12 to expand lower lobes of the lungs -12/09; started on meropenem and vancomycin . Discontinued levofloxacin and metronidazole -appreciate infectious disease evaluation and recommendations (2) Acute on chronic respiratory failure with hypoxia and hypercapnia: Code(s): J96.21 - Acute and chronic respiratory failure with hypoxia; J96.22 - Acute and chronic respiratory failure with hypercapnia Status: Acute Assessment and Plan: Acute on chronic respiratory failure secondary to multifactorial combination of COPD, obesity hypoventilation syndrome, left-sided pneumonia, pulmonary edema, atelectasis 11/26: Patient was admitted for increasing/worsening dyspnea 1 day prior to admission. Patient was in the intermediate Unit, evaluated by pulmonology, has been noncompliant with his AVAPS/BiPAP. 11/28: mallet and die cutter was intubated due to cyanosis, hypo hypoxia, hypercapnia. Also was possibly delirious as he pulled out his IV lines and BiPAP mask. -was on propofol, dropped his blood pressures in the 40s systolic, propofol infusion were discontinued currently sedated with Versed and fentanyl On admission: Chest x-ray shows a consolidation versus atelectasis versus combination of 2 on the left side. Patient is a too big for CT scanner hence unable to evaluate 11/29 bronchoscopy was done. Minimal amount of secretions were seen. C Continue bronchodilators, Mucomyst nebs -status post Pulmozyme nebs -chest PT has been discontinued -status post Solu-Medrol -11/29: Sputum culture is growing Pseudomonas. Nasal MRSA screen was positive. Patient was on vancomycin earlier, which was discontinued -currently on levofloxacin -12/07: Tolerated ASV almost totally evening in the knee got tired, tachycardic, and was placed back on CMV mode of ventilation -Currently on CMV mode of ventilation, 40% FiO2 and peep of 12. -12/11: Lasix IV x1 today -currently only on Precedex, low-dose propofol infusion infusion started on 12/08 as patient was pretty restless only on Precedex 12/09: Discussed with daughter, JOSHUA Bliss, updated her with patient's condition and plan of care. I explained to her in details regarding the need for tracheostomy and PEG tube placement, also discussed with the patient, both of them are agreeable. GI and ENT planning for PEG and tracheostomy tentatively on 12/12/2024 (3) COPD exacerbation: Code(s): J44.1 - Chronic obstructive pulmonary disease with (acute) exacerbation Status: Acute Assessment and Plan: See above (4) Pneumonia: Code(s): J18.9 - Pneumonia, unspecified organism Status: Acute Assessment and Plan: See above (5) Hypotension: Code(s): I95.9 - Hypotension, unspecified Status: Acute Assessment and Plan: Patient dropped his blood pressure is likely related to propofol infuse and positive-pressure ventilation -on admission to the ICU required phenylephrine push and Levophed infusion Now off pressors -hemodynamically stable (6) Atrial fibrillation with RVR: Code(s): I48.91 - Unspecified atrial fibrillation Status: Acute Assessment and Plan: Patient has a history of AFib with RVR, currently rate controlled but remains in atrial fibrillation -continue Eliquis -given that he has this ileus/small-bowel obstruction, will hold Eliquis and continue heparin infusion (12/08) (7) Type 2 diabetes mellitus: Qualifiers: Diabetes mellitus complication status: without complication Diabetes mellitus longwall foreman insulin use: without longwall foreman use Qualified Code(s): E11.9 - Type 2 diabetes mellitus without complications Code(s): E11.9 - Type 2 diabetes mellitus without complications Status: Acute Assessment and Plan: Accu-Cheks and sliding scale insulin Hold Lantus since patient is NPO (8) Essential hypertension: Code(s): I10 - Essential (primary) hypertension Status: Acute Assessment and Plan: Hold antihypertensive medications at this time (9) KATIE (obstructive sleep apnea): Code(s): G47.33 - Obstructive sleep apnea (adult) (pediatric) Status: Acute Assessment and Plan: Non compliant with his CPAP/AVAPS -currently intubated (10) Edema of abdominal wall: Code(s): R60.0 - Localized edema Status: Acute Assessment and Plan: Edema of the abdominal wall on the left side likely related to dependent edema as patient fevers to lay on that side Will hold Lasix for today and re-evaluate (11) Electrolyte abnormality: Code(s): E87.8 - Other disorders of electrolyte and fluid balance, not elsewhere classified Status: Acute Assessment and Plan: Replace potassium and magnesium (12) Ileus: Code(s): K56.7 - Ileus, unspecified Status: Acute Assessment and Plan: 12/07: Patient has not had any bowel moved, obtained a obstructive series which showed Ileus versus early large bowel obstruction -OG tube to suction -appreciate surgery evaluation and recommendations, no further intervention from surgery, signing off -appreciate GI evaluation and recommendations, started on Dulcolax suppository, MiraLax and Linzess per GI -no bowel movements as yet Plan DVT prophylaxis: Apixaban held due to Ileus/SBO, started on heparin infusion Stress ulcer prophylaxis: Protonix Nutrition: Hold tube feeds, continue Dulcolax suppository, will discuss with GI regarding restarting trickle tube feeds to maintain gut integrity Code Status: Full code Critical Care Time Spent: 32 minutes GI and ENT planning for PEG and tracheostomy early next week 12/09: Discussed with daughter, JOSHUA Bliss, updated her with patient's condition and plan of care. I explained to her in details regarding the need for tracheostomy and PEG tube placement, also discussed with the patient, both of them are agreeable. Due to a high probability of clinically significant, life threatening deterioration, the patient required my highest level of preparedness to intervene emergently and I personally spent this critical care time directly and personally managing the patient. This critical care time included obtaining a history; examining the patient; pulse oximetry; ordering and review of studies; arranging urgent treatment with development of a management plan; evaluation of patient's response to treatment; frequent reassessment; and discussions with other providers. It was exclusive of separately billable procedures and treating other patients and teaching time. Please see Assessment and Plan section and the rest of the note for further information on patient assessment and treatment This dictation may have been done utilizing a voice recognition system. Attempts have been made to correct errors. However, there may be uncorrected grammatical, spelling, and recognitions errors present. Subjective Date/time seen: 12/11/24 09:38 Interval history: Reason for consult: Acute hypoxic and hypercapnic respiratory failure since, hypotension/shock, pneumonia, COPD exacerbation, noncompliance 11/28 intubation 11/29 bronchoscopy 12/09: ETT was exchanged over bougie as it kept popping out from the connecter/adapter 12/11/2024: Patient seen and examined the ICU, remains intubated on CMV mode of ventilation, peep of 12, 40% FiO2. On Precedex and propofol infusion. No more restlessness, is awake, alert, follows simple commands, nods to question. Afebrile, adequate urine output, hemodynamically stable. Patient did have bowel movement. Review of Systems Review of Systems: ROS unobtainable: Yes unobtainable due to endotracheal tube, unobtainable due to medical condition and unobtainable due to mental status Exam Narrative: General: Significantly obese gentleman, currently intubated, sedated in no acute distress HEENT:? Pupils equal and reactive, sclera is clear, ETT in place Neck:? Thick and short neck Respiratory:? Decreased air entry bilaterally, no wheezing. Breath sounds are improved on the left side but still less than as compared to right side Chest: Left breast is larger than the right, induration, erythema and warmth has improved Cardiac:? Distant heart sounds, irregularly irregular Abdomen:? Morbidly obese, indurated and firm on the left side with pitting edema, right side is softer with less edema, according the daughter patient prefers to lay on the left side, causing possible dependent edema and swelling. Hypoactive bowel sounds, tympanic on percussion Extremities:? Edema is improving in bilateral lower extremities, palpable pedal pulses Neuro:? Patient is intubated, on propofol and Precedex infusion patient is calm, awake, nods to questions follows simple commands in lower extremities, moves all extremities spontaneously Skin:? Bruising noted on upper extremities, torso, chronic venous stasis changes on bilateral lower extremity Psych:? Unable to assess at this time Objective Data Vital Signs Vital Signs: Vital Signs - 24 hr 12/10/24 10:00 12/10/24 10:00 12/10/24 10:00 Temperature 99.2 F Pulse Rate 75 75 75 Respiratory Rate 20 20 Blood Pressure 144/88 H Pulse Oximetry 94 Oxygen Delivery Fraction of Inspired Oxygen 12/10/24 10:30 12/10/24 11:00 12/10/24 11:25 Temperature 98.9 F Pulse Rate 75 68 60 Respiratory Rate 20 20 Blood Pressure 129/75 Pulse Oximetry 92 94 Oxygen Delivery Mechanical Ventilation Fraction of Inspired Oxygen 40 12/10/24 11:49 12/10/24 11:49 12/10/24 11:58 Temperature Pulse Rate 62 62 68 Respiratory Rate 20 20 20 Blood Pressure Pulse Oximetry Oxygen Delivery Fraction of Inspired Oxygen 12/10/24 11:58 12/10/24 12:00 12/10/24 12:00 Temperature 98.7 F Pulse Rate 68 66 Respiratory Rate 20 20 Blood Pressure 132/88 Pulse Oximetry 96 Oxygen Delivery Fraction of Inspired Oxygen 40 12/10/24 12:00 12/10/24 12:00 12/10/24 13:00 Temperature 99.2 F Pulse Rate 65 83 Respiratory Rate 22 H Blood Pressure 145/80 H Pulse Oximetry 96 94 Oxygen Delivery Fraction of Inspired Oxygen 12/10/24 13:02 12/10/24 14:00 12/10/24 14:00 Temperature 98.9 F Pulse Rate 57 L 61 61 Respiratory Rate 20 20 Blood Pressure 130/90 Pulse Oximetry 93 Oxygen Delivery Fraction of Inspired Oxygen 12/10/24 14:00 12/10/24 14:23 12/10/24 14:25 Temperature Pulse Rate 70 61 62 Respiratory Rate 20 20 Blood Pressure Pulse Oximetry 95 Oxygen Delivery Mechanical Ventilation Fraction of Inspired Oxygen 40 12/10/24 14:39 12/10/24 14:48 12/10/24 15:00 Temperature 98.9 F Pulse Rate 64 63 67 Respiratory Rate 20 20 20 Blood Pressure 124/77 Pulse Oximetry 93 Oxygen Delivery Fraction of Inspired Oxygen 12/10/24 15:02 12/10/24 15:14 12/10/24 15:29 Temperature Pulse Rate 64 64 Respiratory Rate 20 20 Blood Pressure Pulse Oximetry Oxygen Delivery Fraction of Inspired Oxygen 40 12/10/24 16:00 12/10/24 16:00 12/10/24 16:00 Temperature 98.6 F Pulse Rate 71 63 Respiratory Rate 20 Blood Pressure 126/78 Pulse Oximetry 94 94 Oxygen Delivery Fraction of Inspired Oxygen 12/10/24 16:00 12/10/24 16:00 12/10/24 17:00 Temperature 98.4 F Pulse Rate 70 71 66 Respiratory Rate 20 20 20 Blood Pressure 129/72 Pulse Oximetry 94 Oxygen Delivery Fraction of Inspired Oxygen 12/10/24 17:16 12/10/24 17:42 12/10/24 18:00 Temperature Pulse Rate 64 66 59 L Respiratory Rate 20 Blood Pressure Pulse Oximetry 93 Oxygen Delivery Mechanical Ventilation Fraction of Inspired Oxygen 40 12/10/24 18:00 12/10/24 18:00 12/10/24 18:00 Temperature 98.1 F Pulse Rate 59 L 59 L 59 L Respiratory Rate 20 20 20 Blood Pressure 133/87 Pulse Oximetry 95 Oxygen Delivery Fraction of Inspired Oxygen 12/10/24 19:00 12/10/24 20:00 12/10/24 20:00 Temperature 97.8 F 97.8 F Pulse Rate 60 57 L 57 L Respiratory Rate 20 20 20 Blood Pressure 147/98 H 134/97 H Pulse Oximetry 96 95 Oxygen Delivery Fraction of Inspired Oxygen 12/10/24 20:00 12/10/24 20:00 12/10/24 20:00 Temperature Pulse Rate 57 L 59 L Respiratory Rate 20 Blood Pressure Pulse Oximetry Oxygen Delivery Fraction of Inspired Oxygen 40 12/10/24 20:17 12/10/24 20:20 12/10/24 20:24 Temperature Pulse Rate 56 L 57 L 60 Respiratory Rate 20 20 Blood Pressure Pulse Oximetry 96 Oxygen Delivery Mechanical Ventilation Fraction of Inspired Oxygen 40 12/10/24 20:24 12/10/24 20:32 12/10/24 21:00 Temperature 97.9 F Pulse Rate 60 59 L 65 Respiratory Rate 20 20 18 Blood Pressure 131/84 Pulse Oximetry 93 Oxygen Delivery Fraction of Inspired Oxygen 12/10/24 21:29 12/10/24 21:29 12/10/24 22:00 Temperature Pulse Rate 65 65 63 Respiratory Rate 18 18 Blood Pressure Pulse Oximetry Oxygen Delivery Fraction of Inspired Oxygen 12/10/24 22:00 12/10/24 22:00 12/10/24 22:00 Temperature 97.6 F Pulse Rate 63 63 63 Respiratory Rate 20 20 20 Blood Pressure 133/70 Pulse Oximetry 94 Oxygen Delivery Fraction of Inspired Oxygen 12/10/24 23:00 12/10/24 23:06 12/11/24 00:00 Temperature 97.5 F L Pulse Rate 64 65 61 Respiratory Rate 20 20 Blood Pressure 137/83 Pulse Oximetry 94 97 Oxygen Delivery Mechanical Ventilation Fraction of Inspired Oxygen 40 12/11/24 00:00 12/11/24 00:00 12/11/24 00:00 Temperature 97.4 F L Pulse Rate 61 61 Respiratory Rate 20 20 Blood Pressure 149/86 H Pulse Oximetry 98 Oxygen Delivery Fraction of Inspired Oxygen 40 12/11/24 00:00 12/11/24 01:00 12/11/24 01:08 Temperature 97.4 F L Pulse Rate 58 L 58 L 55 L Respiratory Rate 20 20 Blood Pressure 141/91 H Pulse Oximetry 96 Oxygen Delivery Fraction of Inspired Oxygen 12/11/24 01:08 12/11/24 02:00 12/11/24 02:00 Temperature Pulse Rate 55 L 55 L 55 L Respiratory Rate 20 20 20 Blood Pressure Pulse Oximetry Oxygen Delivery Fraction of Inspired Oxygen 12/11/24 02:00 12/11/24 02:00 12/11/24 02:00 Temperature 97.3 F L Pulse Rate 55 L 55 L 55 L Respiratory Rate 20 20 Blood Pressure 144/79 H Pulse Oximetry 97 Oxygen Delivery Fraction of Inspired Oxygen 12/11/24 02:03 12/11/24 02:15 12/11/24 02:20 Temperature Pulse Rate 56 L 39 L 56 L Respiratory Rate 20 20 Blood Pressure Pulse Oximetry 97 Oxygen Delivery Mechanical Ventilation Fraction of Inspired Oxygen 40 12/11/24 02:31 12/11/24 02:31 12/11/24 03:00 Temperature 97.4 F L Pulse Rate 59 L 59 L 59 L Respiratory Rate 20 20 21 H Blood Pressure 138/87 Pulse Oximetry 94 Oxygen Delivery Fraction of Inspired Oxygen 12/11/24 04:00 12/11/24 04:00 12/11/24 04:00 Temperature 97.5 F L Pulse Rate 57 L 56 L Respiratory Rate 20 Blood Pressure 155/89 H Pulse Oximetry 93 Oxygen Delivery Fraction of Inspired Oxygen 40 12/11/24 04:00 12/11/24 04:00 12/11/24 04:39 Temperature Pulse Rate 56 L 56 L 56 L Respiratory Rate 20 20 Blood Pressure Pulse Oximetry 95 Oxygen Delivery Mechanical Ventilation Fraction of Inspired Oxygen 40 12/11/24 05:00 12/11/24 06:00 12/11/24 06:00 Temperature 97.7 F Pulse Rate 57 L 50 L 50 L Respiratory Rate 20 20 20 Blood Pressure 157/91 H Pulse Oximetry 95 Oxygen Delivery Fraction of Inspired Oxygen 12/11/24 06:00 12/11/24 06:00 12/11/24 06:00 Temperature 97.9 F Pulse Rate 50 L 57 L 57 L Respiratory Rate 20 20 Blood Pressure 174/92 H Pulse Oximetry 97 Oxygen Delivery Fraction of Inspired Oxygen 12/11/24 06:45 12/11/24 07:00 12/11/24 08:22 Temperature 98.2 F Pulse Rate 55 L 57 L Respiratory Rate 18 18 Blood Pressure 150/86 H 153/88 H Pulse Oximetry 95 Oxygen Delivery Fraction of Inspired Oxygen 12/11/24 08:28 12/11/24 08:41 12/11/24 08:57 Temperature Pulse Rate 63 64 74 Respiratory Rate 20 20 Blood Pressure Pulse Oximetry 91 Oxygen Delivery Mechanical Ventilation Fraction of Inspired Oxygen 40 12/11/24 08:57 Temperature Pulse Rate 74 Respiratory Rate 20 Blood Pressure Pulse Oximetry Oxygen Delivery Fraction of Inspired Oxygen Intake/Output Intake/Output: Intake & Output 12/08/24 12/09/24 12/10/24 12/11/24 23:59 23:59 23:59 23:59 Intake Total 1879.1 4263.7 2957.9 1046.9 Output Total 2105 1725 1810 900 Balance -225.9 2538.7 1147.9 146.9 Meds/Results Medications: Active Medications Generic Name Dose Route Start Last Admin Trade Name Freq PRN Reason Stop Dose Admin Acetaminophen 650 mg 11/26/24 14:25 12/07/24 04:00 Acetaminophen 325 Mg Tablet PO 650 mg Q6H PRN Administration Mild Pain (1-3) or Fever Acetylcysteine 200 mg 11/28/24 08:55 12/11/24 08:20 Acetylcysteine 20% Inhal Soln 800 Mg/4 Ml Vial INHALATION 200 mg Q6HRT EDMUNDO Administration Apixaban 5 mg 11/26/24 21:00 12/07/24 21:07 Apixaban 5 Mg Tablet PO 5 mg On Hold: 12/08/24 07:15 Q12HR EDMUNDO Administration Bisacodyl 10 mg 12/09/24 09:00 12/11/24 08:53 Bisacodyl 10 Mg Suppository RECTAL 10 mg QAM EDMUNDO Administration Dextrose 12.5 gm 11/26/24 16:15 Dextrose 50% 25 Gm/50 Ml Syringe IV PUSH PRN PRN Hypoglycemia Protocol Glucagon 1 mg 11/26/24 16:15 Glucagon For Inj 1 Mg Vial IM PRN PRN Hypoglycemia Protocol Glucose 15 gm 11/26/24 16:15 Glucose Oral Gel 15 Gm Of Glucse In 37.5 Gm Tube PO PRN PRN Hypoglycemia Protocol Heparin Sodium (Porcine) 10,000 units 12/08/24 07:12 Heparin Sodium 5,000 Units/Ml Vial IV PUSH PRN PRN aPTT less than 55 seconds Heparin Sodium (Porcine) 5,000 units 12/08/24 07:12 12/10/24 01:46 Heparin Sodium 5,000 Units/Ml Vial IV PUSH 5,000 units PRN PRN Administration aPTT 55 - 70 seconds Dextrose 1,000 mls @ 100 mls/hr 11/26/24 16:15 Dextrose 5% 1,000 Ml IVPB PRN PRN Hypoglycemia Protocol Dexmedetomidine HCl 400 mcg in 100 mls @ 20 mls/hr 12/06/24 12:25 12/11/24 06:00 Precedex 400 Mcg/100 Ml IV CONT 0.4 mcg/kg/hr .Q5H EDMUNDO 20 mls/hr Protocol Administration 0.4 MCG/KG/HR Heparin Sodium/Dextrose 25,000 units in 250 mls @ 21 mls/hr 12/08/24 07:15 12/11/24 06:12 Heparin Sodium/D5w 100 Units/Ml IV CONT 2,100 units/hr .[id number] EDMUNDO 21 mls/hr Protocol Administration 2,100 UNITS/HR Propofol 100 mls @ 12 mls/hr 12/08/24 16:20 12/11/24 08:57 Diprivan IV CONT 10 mcg/kg/min .Q8H20M EDMUNDO 12 mls/hr Protocol Administration 10 MCG/KG/MIN Meropenem 1 gm/ Sodium 100 mls @ 200 mls/hr 12/09/24 14:00 12/11/24 06:10 Chloride IVPB 200 mls/hr Q8HR EDMUNDO Administration Vancomycin HCl 2,000 mg in 500 mls @ 250 mls/hr 12/10/24 22:00 12/10/24 23:40 Vancomycin 2,000 Mg/Ns 500 Ml IVPB Infused Q12H EDMUNDO Infusion Potassium Chloride 100 mls @ 25 mls/hr 12/11/24 07:29 12/11/24 08:55 Kcl 40 Meq/Water 100 Ml IVPB 12/11/24 11:28 25 mls/hr ONCE ONE Administration Potassium Chloride 100 mls @ 25 mls/hr 12/11/24 14:00 Kcl 40 Meq/Water 100 Ml IVPB 12/11/24 17:59 ONCE ONE Insulin Aspart 3 - 6 units 11/28/24 06:50 12/11/24 06:55 Insulin Aspart (*Bkc) 100 Units/Ml SUB-Q Not Given Q6HR [facility]1983 Protocol Insulin Glargine 25 units 12/01/24 09:00 12/07/24 08:34 Insulin Glargine (*Bkc) 100 Units/Ml SUB-Q 25 units On Hold: 12/08/24 07:18 QAM EDMUNDO Administration Ipratropium [place] 0.5 mg 11/29/24 08:00 12/11/24 08:22 Ipratropium Br 0.02% Inh Soln 0.5 Mg/2.5 Ml Vial INHALATION 0.5 mg Q6HRT EDMUNDO Administration Levalbuterol HCl 1.25 mg 11/29/24 20:00 12/11/24 08:20 Levalbuterol Neb 1.25 Mg/3 Ml INHALATION 1.25 mg Q6HRT EDMUNDO Administration Linaclotide 145 mcg 12/10/24 06:30 12/11/24 06:10 Linaclotide 145 Mcg Capsule PO 145 mcg DAILY@0630 EDMUNDO Administration Miscellaneous Information 1 each 12/10/24 00:01 Please Renew Propofol. Per [employer] Procedure, It Will Discontinue If Not Renewed. XX 01/09/25 00:00 CLARIFY EDMUNDO Multi-Ingred Cream/Lotion/Oil/Oint 1 applic 11/28/24 09:00 12/11/24 08:53 Mineral Oil/White Petrolatum Ointment EACH EYE 1 applic Q12HR EDMUNDO Administration Pantoprazole Sodium 40 mg 11/29/24 09:00 12/11/24 08:52 Pantoprazole Sodium Iv 40 Mg Vial IV PUSH 40 mg QAM EDMUNDO Administration Polyethylene Glycol 17 gm 12/08/24 13:35 12/11/24 06:10 Polyethylene Glycol 3350 17 Gm Powd.Pack PO 17 gm Q8HR EDMUNDO Administration Senna/Docusate Sodium 1 tab 12/06/24 21:00 12/07/24 21:07 Senna/Docusate Sodium Tablet PO 1 tab On Hold: 12/08/24 07:17 HS EDMUNDO Administration Sertraline HCl 50 mg 11/27/24 09:00 11/28/24 12:06 Sertraline Hcl 50 Mg Tablet PO 50 mg On Hold: 11/29/24 08:16 DAILY EDMUNDO Administration Sodium Chloride 10 ml 11/28/24 14:00 12/11/24 06:26 Central Line Flush IV PUSH 10 ml Q8HR EDMUNDO Administration Sodium Chloride 20 ml 11/28/24 11:53 12/03/24 05:31 Central Line Flush IV PUSH 20 ml PRN PRN Administration after blood draws Radiology Results: ITS Impressions Venous Doppler Study 12/07/24 13:02 IMPRESSION: 1: No lower extremity deep venous thrombosis. Labs Labs: Laboratory Results - last 24 hr 12/10/24 12/10/24 12/10/24 11:41 15:22 16:57 WBC RBC Hgb Hct MCV MCH MCHC RDW Plt Count MPV Immature Gran % (Auto) Neut % (Auto) Lymph % (Auto) [place] % (Auto) Eos % (Auto) Baso % (Auto) Lymph # (Auto) [place] # (Auto) Eos # (Auto) Baso # (Auto) Abs Immat Gran (auto) Absolute Neuts (auto) Absolute Nucleated RBC Nucleated RBC % APTT 75.1 H Puncture Site ABG pH ABG pCO2 ABG pO2 ABG PO2/FiO2 Ratio ABG HCO3 ABG O2 Saturation ABG O2 Content ABG Base Excess A-a Gradient Oxyhemoglobin Carboxyhemoglobin Methemoglobin Reduced Hemoglobin Total Hemoglobin O2 Delivery Device O2 Liters/Min Minute Volume Vent Rate Vent Mode FiO2 Tidal Volume PEEP Peak Inspir Pressure Pressure Support Sodium Potassium Chloride Carbon Dioxide Anion Gap BUN Creatinine Estim Creat Clear Calc Estimated GFR Glucose POC Capillary Glucose 155 H 123 H Calcium Total Bilirubin AST ALT Alkaline Phosphatase Total Protein Albumin Triglycerides Vancomycin Trough 12/10/24 12/11/24 12/11/24 20:01 00:20 04:29 WBC RBC Hgb Hct MCV MCH MCHC RDW Plt Count MPV Immature Gran % (Auto) Neut % (Auto) Lymph % (Auto) [place] % (Auto) Eos % (Auto) Baso % (Auto) Lymph # (Auto) [place] # (Auto) Eos # (Auto) Baso # (Auto) Abs Immat Gran (auto) Absolute Neuts (auto) Absolute Nucleated RBC Nucleated RBC % APTT Puncture Site Right radial ABG pH 7.471 H ABG pCO2 40.3 ABG pO2 84.9 ABG PO2/FiO2 Ratio 2.12 ABG HCO3 28.7 H ABG O2 Saturation 96.9 ABG O2 Content 19.4 ABG Base Excess 4.7 A-a Gradient 154.0 Oxyhemoglobin 95.7 Carboxyhemoglobin 1.0 Methemoglobin 0.0 Reduced Hemoglobin 3.3 Total Hemoglobin 14.4 O2 Delivery Device Ventilator O2 Liters/Min Not Reportable Minute Volume Not Reportable Vent Rate 20 Vent Mode Cmv FiO2 40 Tidal Volume 450 PEEP 12 Peak Inspir Pressure Not Reportable Pressure Support Not Reportable Sodium Potassium Chloride Carbon Dioxide Anion Gap BUN Creatinine Estim Creat Clear Calc Estimated GFR Glucose POC Capillary Glucose 122 H Calcium Total Bilirubin AST ALT Alkaline Phosphatase Total Protein Albumin Triglycerides Vancomycin Trough 11.4 12/11/24 05:54 WBC 7.0 RBC 4.93 Hgb 13.3 L Hct 44.3 MCV 89.9 MCH 27.0 MCHC 30.0 L RDW 16.0 H Plt Count 148 L MPV 9.7 Immature Gran % (Auto) 0.3 Neut % (Auto) 72.9 Lymph % (Auto) 16.5 L [place] % (Auto) 5.6 Eos % (Auto) 4.3 Baso % (Auto) 0.4 Lymph # (Auto) 1.16 [place] # (Auto) 0.4 Eos # (Auto) 0.3 Baso # (Auto) 0.0 Abs Immat Gran (auto) 0.02 Absolute Neuts (auto) 5.1 Absolute Nucleated RBC 0.000 Nucleated RBC % 0.0 APTT 90.1 H Puncture Site ABG pH ABG pCO2 ABG pO2 ABG PO2/FiO2 Ratio ABG HCO3 ABG O2 Saturation ABG O2 Content ABG Base Excess A-a Gradient Oxyhemoglobin Carboxyhemoglobin Methemoglobin Reduced Hemoglobin Total Hemoglobin O2 Delivery Device O2 Liters/Min Minute Volume Vent Rate Vent Mode FiO2 Tidal Volume PEEP Peak Inspir Pressure Pressure Support Sodium 134 L Potassium 3.6 Chloride 98 Carbon Dioxide 31 H Anion Gap 5 BUN 20 Creatinine 0.63 L Estim Creat Clear Calc 167 Estimated GFR > 60 Glucose 126 H POC Capillary Glucose Calcium 8.0 L Total Bilirubin 1.2 AST 29 ALT 26 Alkaline Phosphatase 104 Total Protein 6.2 L Albumin 2.9 L Triglycerides 102 Vancomycin Trough Quality VTE Prophylaxis VTE prophylaxis: pharmacologic ordered
[2024-12-11] MEDS: VANCOMYCIN 2,000 MG/NS 500 ML 2,000 MG/500 ML BAG 250 MG IVPB ×2 (10:54→22:11)
[2024-12-11] MEDS: PROPOFOL IV EMULSION 100 ML 24 MG IV CONT ×3 (13:11→20:15)
--- NOTE | 2024-12-11 14:17 | WPDGIPROGNO ---
Progress Note: A&P Assessment and Plan (1) Chronic constipation: Code(s): K59.09 - Other constipation Status: Acute Assessment and Plan: on miralax, dulcolax continue with linzess had BM plan is to place PEG tube tomorrow ngt in place and started on trickle feeding- stop after midnight (2) Acute hypoxic respiratory failure: Code(s): J96.01 - Acute respiratory failure with hypoxia Status: Acute Assessment and Plan: still intubated will require trach by ENT (3) Class 3 severe obesity with body mass index (BMI) of 60.0 to 69.9 in adult: Qualifiers: Obesity type: due to excess calories Serious obesity comorbidity presence: with serious comorbidity Qualified Code(s): E66.813 - Obesity, class 3; Z68.44 - Body mass index [BMI] 60.0-69.9, adult Code(s): E66.813 - Obesity, class 3; Z68.44 - Body mass index [BMI] 60.0-69.9, adult Status: Acute (4) Pneumonia: Code(s): J18.9 - Pneumonia, unspecified organism Status: Acute (5) Atrial fibrillation with RVR: Code(s): I48.91 - Unspecified atrial fibrillation Status: Acute Subjective Date/time seen: 12/11/24 14:17 Interval history: finally had BM, no major changes, still intubated Review of Systems Review of Systems: All systems reviewed & are unremarkable except as noted in HPI and below Exam Narrative: General: Significantly obese gentleman, currently intubated, sedated in no acute distress HEENT:? Pupils equal and reactive, sclera is clear, ETT in place Neck:? Thick and short neck Respiratory:? Decreased air entry bilaterally, no wheezing. Cardiac:? Distant heart sounds, irregularly irregular Abdomen:? Morbidly. Hypoactive bowel sounds, tympanic on percussion Extremities:? Edema is improving in bilateral lower extremities. Neuro:? Patient is intubated, nods to questions follows simple commands in lower extremities, moves all extremities spontaneously Skin:? Bruising noted on upper extremities, torso, chronic venous stasis changes on bilateral lower extremity Psych:? Unable to assess at this time Objective Data Vital Signs Vital Signs: Vital Signs - 24 hr 12/10/24 14:23 12/10/24 14:25 12/10/24 14:39 Temperature Pulse Rate 61 62 64 Respiratory Rate 20 20 Blood Pressure Pulse Oximetry 95 Oxygen Delivery Mechanical Ventilation Fraction of Inspired Oxygen 40 12/10/24 14:48 12/10/24 15:00 12/10/24 15:02 Temperature 98.9 F Pulse Rate 63 67 64 Respiratory Rate 20 20 20 Blood Pressure 124/77 Pulse Oximetry 93 Oxygen Delivery Fraction of Inspired Oxygen 12/10/24 15:14 12/10/24 15:29 12/10/24 16:00 Temperature 98.6 F Pulse Rate 64 71 Respiratory Rate 20 20 Blood Pressure 126/78 Pulse Oximetry 94 Oxygen Delivery Fraction of Inspired Oxygen 40 12/10/24 16:00 12/10/24 16:00 12/10/24 16:00 Temperature Pulse Rate 63 70 Respiratory Rate 20 Blood Pressure Pulse Oximetry 94 Oxygen Delivery Fraction of Inspired Oxygen 12/10/24 16:00 12/10/24 17:00 12/10/24 17:16 Temperature 98.4 F Pulse Rate 71 66 64 Respiratory Rate 20 20 Blood Pressure 129/72 Pulse Oximetry 94 93 Oxygen Delivery Mechanical Ventilation Fraction of Inspired Oxygen 40 12/10/24 17:42 12/10/24 18:00 12/10/24 18:00 Temperature 98.1 F Pulse Rate 66 59 L 59 L Respiratory Rate 20 20 Blood Pressure 133/87 Pulse Oximetry 95 Oxygen Delivery Fraction of Inspired Oxygen 12/10/24 18:00 12/10/24 18:00 12/10/24 19:00 Temperature 97.8 F Pulse Rate 59 L 59 L 60 Respiratory Rate 20 20 20 Blood Pressure 147/98 H Pulse Oximetry 96 Oxygen Delivery Fraction of Inspired Oxygen 12/10/24 20:00 12/10/24 20:00 12/10/24 20:00 Temperature 97.8 F Pulse Rate 57 L 57 L 57 L Respiratory Rate 20 20 20 Blood Pressure 134/97 H Pulse Oximetry 95 Oxygen Delivery Fraction of Inspired Oxygen 12/10/24 20:00 12/10/24 20:00 12/10/24 20:17 Temperature Pulse Rate 59 L 56 L Respiratory Rate 20 Blood Pressure Pulse Oximetry Oxygen Delivery Fraction of Inspired Oxygen 40 12/10/24 20:20 12/10/24 20:24 12/10/24 20:24 Temperature Pulse Rate 57 L 60 60 Respiratory Rate 20 20 Blood Pressure Pulse Oximetry 96 Oxygen Delivery Mechanical Ventilation Fraction of Inspired Oxygen 40 12/10/24 20:32 12/10/24 21:00 12/10/24 21:29 Temperature 97.9 F Pulse Rate 59 L 65 65 Respiratory Rate 20 18 18 Blood Pressure 131/84 Pulse Oximetry 93 Oxygen Delivery Fraction of Inspired Oxygen 12/10/24 21:29 12/10/24 22:00 12/10/24 22:00 Temperature 97.6 F Pulse Rate 65 63 63 Respiratory Rate 18 20 Blood Pressure 133/70 Pulse Oximetry 94 Oxygen Delivery Fraction of Inspired Oxygen 12/10/24 22:00 12/10/24 22:00 12/10/24 23:00 Temperature 97.5 F L Pulse Rate 63 63 64 Respiratory Rate 20 20 20 Blood Pressure 137/83 Pulse Oximetry 94 Oxygen Delivery Fraction of Inspired Oxygen 12/10/24 23:06 12/11/24 00:00 12/11/24 00:00 Temperature Pulse Rate 65 61 61 Respiratory Rate 20 20 Blood Pressure Pulse Oximetry 97 Oxygen Delivery Mechanical Ventilation Fraction of Inspired Oxygen 40 12/11/24 00:00 12/11/24 00:00 12/11/24 00:00 Temperature 97.4 F L Pulse Rate 61 58 L Respiratory Rate 20 Blood Pressure 149/86 H Pulse Oximetry 98 Oxygen Delivery Fraction of Inspired Oxygen 40 12/11/24 01:00 12/11/24 01:08 12/11/24 01:08 Temperature 97.4 F L Pulse Rate 58 L 55 L 55 L Respiratory Rate 20 20 20 Blood Pressure 141/91 H Pulse Oximetry 96 Oxygen Delivery Fraction of Inspired Oxygen 12/11/24 02:00 12/11/24 02:00 12/11/24 02:00 Temperature Pulse Rate 55 L 55 L 55 L Respiratory Rate 20 20 20 Blood Pressure Pulse Oximetry Oxygen Delivery Fraction of Inspired Oxygen 12/11/24 02:00 12/11/24 02:00 12/11/24 02:03 Temperature 97.3 F L Pulse Rate 55 L 55 L 56 L Respiratory Rate 20 Blood Pressure 144/79 H Pulse Oximetry 97 97 Oxygen Delivery Mechanical Ventilation Fraction of Inspired Oxygen 40 12/11/24 02:15 12/11/24 02:20 12/11/24 02:31 Temperature Pulse Rate 39 L 56 L 59 L Respiratory Rate 20 20 20 Blood Pressure Pulse Oximetry Oxygen Delivery Fraction of Inspired Oxygen 12/11/24 02:31 12/11/24 03:00 12/11/24 04:00 Temperature 97.4 F L Pulse Rate 59 L 59 L 57 L Respiratory Rate 20 21 H Blood Pressure 138/87 Pulse Oximetry 94 Oxygen Delivery Fraction of Inspired Oxygen 12/11/24 04:00 12/11/24 04:00 12/11/24 04:00 Temperature 97.5 F L Pulse Rate 56 L 56 L Respiratory Rate 20 20 Blood Pressure 155/89 H Pulse Oximetry 93 Oxygen Delivery Fraction of Inspired Oxygen 40 12/11/24 04:00 12/11/24 04:39 12/11/24 05:00 Temperature 97.7 F Pulse Rate 56 L 56 L 57 L Respiratory Rate 20 20 Blood Pressure 157/91 H Pulse Oximetry 95 95 Oxygen Delivery Mechanical Ventilation Fraction of Inspired Oxygen 40 12/11/24 06:00 12/11/24 06:00 12/11/24 06:00 Temperature Pulse Rate 50 L 50 L 50 L Respiratory Rate 20 20 20 Blood Pressure Pulse Oximetry Oxygen Delivery Fraction of Inspired Oxygen 12/11/24 06:00 12/11/24 06:00 12/11/24 06:45 Temperature 97.9 F Pulse Rate 57 L 57 L Respiratory Rate 20 Blood Pressure 174/92 H 150/86 H Pulse Oximetry 97 Oxygen Delivery Fraction of Inspired Oxygen 12/11/24 07:00 12/11/24 08:00 12/11/24 08:00 Temperature 98.2 F Pulse Rate 55 L 74 65 Respiratory Rate 18 20 20 Blood Pressure 153/88 H Pulse Oximetry 95 Oxygen Delivery Fraction of Inspired Oxygen 12/11/24 08:00 12/11/24 08:00 12/11/24 08:00 Temperature 98.1 F Pulse Rate 57 L 55 L Respiratory Rate 20 Blood Pressure 159/91 H Pulse Oximetry 96 Oxygen Delivery Fraction of Inspired Oxygen 40 12/11/24 08:00 12/11/24 08:22 12/11/24 08:28 Temperature Pulse Rate 57 L 63 Respiratory Rate 18 Blood Pressure Pulse Oximetry 96 91 Oxygen Delivery Mechanical Ventilation Mechanical Ventilation Fraction of Inspired Oxygen 40 12/11/24 08:41 12/11/24 08:57 12/11/24 09:00 Temperature 98.5 F Pulse Rate 64 74 74 Respiratory Rate 20 20 23 H Blood Pressure 123/78 Pulse Oximetry 92 Oxygen Delivery Fraction of Inspired Oxygen 12/11/24 09:51 12/11/24 10:00 12/11/24 10:00 Temperature Pulse Rate 85 83 80 Respiratory Rate 20 26 H Blood Pressure Pulse Oximetry Oxygen Delivery Fraction of Inspired Oxygen 12/11/24 10:00 12/11/24 10:00 12/11/24 10:55 Temperature 97.9 F Pulse Rate 80 80 71 Respiratory Rate 24 H 24 H 22 H Blood Pressure 128/105 H Pulse Oximetry 92 Oxygen Delivery Fraction of Inspired Oxygen 12/11/24 10:55 12/11/24 11:00 12/11/24 11:43 Temperature 98.0 F Pulse Rate 71 77 71 Respiratory Rate 22 H 23 H Blood Pressure 134/75 Pulse Oximetry 92 93 Oxygen Delivery Mechanical Ventilation Fraction of Inspired Oxygen 50 12/11/24 12:00 12/11/24 12:00 12/11/24 12:00 Temperature 98.1 F Pulse Rate 72 72 Respiratory Rate 23 H Blood Pressure 135/81 Pulse Oximetry 94 Oxygen Delivery Fraction of Inspired Oxygen 50 12/11/24 12:00 12/11/24 12:00 12/11/24 12:00 Temperature Pulse Rate 72 72 Respiratory Rate 23 H 23 H Blood Pressure Pulse Oximetry 94 Oxygen Delivery Mechanical Ventilation Fraction of Inspired Oxygen 12/11/24 13:00 12/11/24 13:11 12/11/24 13:11 Temperature 98.2 F Pulse Rate 69 69 69 Respiratory Rate 22 H 21 H 21 H Blood Pressure 153/72 H Pulse Oximetry 95 Oxygen Delivery Fraction of Inspired Oxygen Intake/Output Intake/Output: Intake & Output 12/08/24 12/09/24 12/10/24 12/11/24 23:59 23:59 23:59 23:59 Intake Total 1879.1 4263.7 2957.9 1346.3 Output Total 2105 1725 1810 4300 Balance -225.9 2538.7 1147.9 -2953.7 Meds/Results Medications: Active Medications Generic Name Dose Route Start Last Admin Trade Name Freq PRN Reason Stop Dose Admin Acetaminophen 650 mg 11/26/24 14:25 12/07/24 04:00 Acetaminophen 325 Mg Tablet PO 650 mg Q6H PRN Administration Mild Pain (1-3) or Fever Acetylcysteine 200 mg 11/28/24 08:55 12/11/24 08:20 Acetylcysteine 20% Inhal Soln 800 Mg/4 Ml Vial INHALATION 200 mg Q6HRT EDMUNDO Administration Apixaban 5 mg 11/26/24 21:00 12/07/24 21:07 Apixaban 5 Mg Tablet PO 5 mg On Hold: 12/08/24 07:15 Q12HR EDMUNDO Administration Bisacodyl 10 mg 12/09/24 09:00 12/11/24 08:53 Bisacodyl 10 Mg Suppository RECTAL 10 mg QAM EDMUNDO Administration Dextrose 12.5 gm 11/26/24 16:15 Dextrose 50% 25 Gm/50 Ml Syringe IV PUSH PRN PRN Hypoglycemia Protocol Glucagon 1 mg 11/26/24 16:15 Glucagon For Inj 1 Mg Vial IM PRN PRN Hypoglycemia Protocol Glucose 15 gm 11/26/24 16:15 Glucose Oral Gel 15 Gm Of Glucse In 37.5 Gm Tube PO PRN PRN Hypoglycemia Protocol Heparin Sodium (Porcine) 10,000 units 12/08/24 07:12 Heparin Sodium 5,000 Units/Ml Vial IV PUSH PRN PRN aPTT less than 55 seconds Heparin Sodium (Porcine) 5,000 units 12/08/24 07:12 12/10/24 01:46 Heparin Sodium 5,000 Units/Ml Vial IV PUSH 5,000 units PRN PRN Administration aPTT 55 - 70 seconds Dextrose 1,000 mls @ 100 mls/hr 11/26/24 16:15 Dextrose 5% 1,000 Ml IVPB PRN PRN Hypoglycemia Protocol Dexmedetomidine HCl 400 mcg in 100 mls @ 20 mls/hr 12/06/24 12:25 12/11/24 12:00 Precedex 400 Mcg/100 Ml IV CONT 0.4 mcg/kg/hr .Q5H EDMUNDO 20 mls/hr Protocol Titration 0.4 MCG/KG/HR Heparin Sodium/Dextrose 25,000 units in 250 mls @ 21 mls/hr 12/08/24 07:15 12/11/24 06:12 Heparin Sodium/D5w 100 Units/Ml IV CONT 2,100 units/hr .[id number] EDMUNDO 21 mls/hr Protocol Administration 2,100 UNITS/HR Propofol 100 mls @ 24 mls/hr 12/08/24 16:20 12/11/24 13:11 Diprivan IV CONT 20 mcg/kg/min .Q4H10M EDMUNDO 24 mls/hr Protocol Administration 20 MCG/KG/MIN Meropenem 1 gm/ Sodium 100 mls @ 200 mls/hr 12/09/24 14:00 12/11/24 14:03 Chloride IVPB 200 mls/hr Q8HR EDMUNDO Administration Vancomycin HCl 2,000 mg in 500 mls @ 250 mls/hr 12/10/24 22:00 12/11/24 10:54 Vancomycin 2,000 Mg/Ns 500 Ml IVPB 250 mls/hr Q12H EDMUNDO Administration Potassium Chloride 100 mls @ 25 mls/hr 12/11/24 14:00 12/11/24 14:03 Kcl 40 Meq/Water 100 Ml IVPB 12/11/24 17:59 25 mls/hr ONCE ONE Administration Insulin Aspart 3 - 6 units 11/28/24 06:50 12/11/24 12:09 Insulin Aspart (*Bkc) 100 Units/Ml SUB-Q Not Given Q6HR [facility] Protocol Insulin Glargine 25 units 12/01/24 09:00 12/07/24 08:34 Insulin Glargine (*Bkc) 100 Units/Ml SUB-Q 25 units On Hold: 12/08/24 07:18 QAM EDMUNDO Administration Ipratropium [place] 0.5 mg 11/29/24 08:00 12/11/24 08:22 Ipratropium Br 0.02% Inh Soln 0.5 Mg/2.5 Ml Vial INHALATION 0.5 mg Q6HRT EDMUNDO Administration Levalbuterol HCl 1.25 mg 11/29/24 20:00 12/11/24 08:20 Levalbuterol Neb 1.25 Mg/3 Ml INHALATION 1.25 mg Q6HRT EDMUNDO Administration Linaclotide 145 mcg 12/10/24 06:30 12/11/24 06:10 Linaclotide 145 Mcg Capsule PO 145 mcg DAILY@0630 EDMUNDO Administration Miscellaneous Information 1 each 12/10/24 00:01 Please Renew Propofol. Per [employer] Procedure, It Will Discontinue If Not Renewed. XX 01/09/25 00:00 CLARIFY EDMUNDO Multi-Ingred Cream/Lotion/Oil/Oint 1 applic 11/28/24 09:00 12/11/24 08:53 Mineral Oil/White Petrolatum Ointment EACH EYE 1 applic Q12HR EDMUNDO Administration Pantoprazole Sodium 40 mg 11/29/24 09:00 12/11/24 08:52 Pantoprazole Sodium Iv 40 Mg Vial IV PUSH 40 mg QAM EDMUNDO Administration Polyethylene Glycol 17 gm 12/08/24 13:35 12/11/24 14:03 Polyethylene Glycol 3350 17 Gm Powd.Pack PO 17 gm Q8HR EDMUNDO Administration Senna/Docusate Sodium 1 tab 12/06/24 21:00 12/07/24 21:07 Senna/Docusate Sodium Tablet PO 1 tab On Hold: 12/08/24 07:17 HS EDMUNDO Administration Sertraline HCl 50 mg 11/27/24 09:00 11/28/24 12:06 Sertraline Hcl 50 Mg Tablet PO 50 mg On Hold: 11/29/24 08:16 DAILY EDMUNDO Administration Sodium Chloride 10 ml 11/28/24 14:00 12/11/24 06:26 Central Line Flush IV PUSH 10 ml Q8HR EDMUNDO Administration Sodium Chloride 20 ml 11/28/24 11:53 12/03/24 05:31 Central Line Flush IV PUSH 20 ml PRN PRN Administration after blood draws Radiology Results: ITS Impressions Venous Doppler Study 12/07/24 13:02 IMPRESSION: 1: No lower extremity deep venous thrombosis. Chest X-Ray 12/11/24 10:07 IMPRESSION: 1. No significant change. 2. Persistent complete left lower lobe atelectasis, with associated effusion. 3. Persistent interstitial pulmonary edema and/or pneumonitis. Labs Labs: Laboratory Results - last 24 hr 12/10/24 12/10/24 12/10/24 15:22 16:57 20:01 WBC RBC Hgb Hct MCV MCH MCHC RDW Plt Count MPV Immature Gran % (Auto) Neut % (Auto) Lymph % (Auto) [place] % (Auto) Eos % (Auto) Baso % (Auto) Lymph # (Auto) [place] # (Auto) Eos # (Auto) Baso # (Auto) Abs Immat Gran (auto) Absolute Neuts (auto) Absolute Nucleated RBC Nucleated RBC % APTT 75.1 H Puncture Site ABG pH ABG pCO2 ABG pO2 ABG PO2/FiO2 Ratio ABG HCO3 ABG O2 Saturation ABG O2 Content ABG Base Excess A-a Gradient Oxyhemoglobin Carboxyhemoglobin Methemoglobin Reduced Hemoglobin Total Hemoglobin O2 Delivery Device O2 Liters/Min Minute Volume Vent Rate Vent Mode FiO2 Tidal Volume PEEP Peak Inspir Pressure Pressure Support Sodium Potassium Chloride Carbon Dioxide Anion Gap BUN Creatinine Estim Creat Clear Calc Estimated GFR Glucose POC Capillary Glucose 123 H Calcium Total Bilirubin AST ALT Alkaline Phosphatase Total Protein Albumin Triglycerides Vancomycin Trough 11.4 12/11/24 12/11/24 12/11/24 00:20 04:29 05:54 WBC 7.0 RBC 4.93 Hgb 13.3 L Hct 44.3 MCV 89.9 MCH 27.0 MCHC 30.0 L RDW 16.0 H Plt Count 148 L MPV 9.7 Immature Gran % (Auto) 0.3 Neut % (Auto) 72.9 Lymph % (Auto) 16.5 L [place] % (Auto) 5.6 Eos % (Auto) 4.3 Baso % (Auto) 0.4 Lymph # (Auto) 1.16 [place] # (Auto) 0.4 Eos # (Auto) 0.3 Baso # (Auto) 0.0 Abs Immat Gran (auto) 0.02 Absolute Neuts (auto) 5.1 Absolute Nucleated RBC 0.000 Nucleated RBC % 0.0 APTT 90.1 H Puncture Site Right radial ABG pH 7.471 H ABG pCO2 40.3 ABG pO2 84.9 ABG PO2/FiO2 Ratio 2.12 ABG HCO3 28.7 H ABG O2 Saturation 96.9 ABG O2 Content 19.4 ABG Base Excess 4.7 A-a Gradient 154.0 Oxyhemoglobin 95.7 Carboxyhemoglobin 1.0 Methemoglobin 0.0 Reduced Hemoglobin 3.3 Total Hemoglobin 14.4 O2 Delivery Device Ventilator O2 Liters/Min Not Reportable Minute Volume Not Reportable Vent Rate 20 Vent Mode Cmv FiO2 40 Tidal Volume 450 PEEP 12 Peak Inspir Pressure Not Reportable Pressure Support Not Reportable Sodium 134 L Potassium 3.6 Chloride 98 Carbon Dioxide 31 H Anion Gap 5 BUN 20 Creatinine 0.63 L Estim Creat Clear Calc 167 Estimated GFR > 60 Glucose 126 H POC Capillary Glucose 122 H Calcium 8.0 L Total Bilirubin 1.2 AST 29 ALT 26 Alkaline Phosphatase 104 Total Protein 6.2 L Albumin 2.9 L Triglycerides 102 Vancomycin Trough 12/11/24 11:59 WBC RBC Hgb Hct MCV MCH MCHC RDW Plt Count MPV Immature Gran % (Auto) Neut % (Auto) Lymph % (Auto) [place] % (Auto) Eos % (Auto) Baso % (Auto) Lymph # (Auto) [place] # (Auto) Eos # (Auto) Baso # (Auto) Abs Immat Gran (auto) Absolute Neuts (auto) Absolute Nucleated RBC Nucleated RBC % APTT Puncture Site ABG pH ABG pCO2 ABG pO2 ABG PO2/FiO2 Ratio ABG HCO3 ABG O2 Saturation ABG O2 Content ABG Base Excess A-a Gradient Oxyhemoglobin Carboxyhemoglobin Methemoglobin Reduced Hemoglobin Total Hemoglobin O2 Delivery Device O2 Liters/Min Minute Volume Vent Rate Vent Mode FiO2 Tidal Volume PEEP Peak Inspir Pressure Pressure Support Sodium Potassium Chloride Carbon Dioxide Anion Gap BUN Creatinine Estim Creat Clear Calc Estimated GFR Glucose POC Capillary Glucose 129 H Calcium Total Bilirubin AST ALT Alkaline Phosphatase Total Protein Albumin Triglycerides Vancomycin Trough
--- NOTE | 2024-12-11 17:49 | PC.NURSE ---
Phoned and spoke with patient's daughter Ruthy and informed of procedure scheduled 12/12/24 for PEG Tube placement and possible Trach placement and asked if verbal consent will be given for patient to have procedure done as patient is unable to give consent. Patient's daughter, Ruthy gave verbal consent to PEG placement and Trach placement to Yocasta Gonzales RN and Emily Hansen RN. Consent form signed and placed in patient's chart. Ladi Gonzales RN
[2024-12-12] VITALS (55 sets, daily range): BP systolic 110–149; BP diastolic 68–107; PULSE 52–79; RESP 18–22; TEMP 35.7–37.1; O2SAT 90–98
[2024-12-12] MEDS: PROPOFOL IV EMULSION 100 ML 30 MG IV CONT ×8 (00:15→23:41)
[2024-12-12] MEDS: dexmedeTOMIDine 400 MCG/100 ML 400 MCG/100 ML BAG 20 MCG IV CONT ×5 (01:46→20:00)
[2024-12-12] MEDS: ACETYLCYSTEINE 20% INHAL SOLN 800 MG/4 ML VIAL 200 MG INHALATION ×2 (01:51→08:19)
[2024-12-12] MEDS: IPRATROPIUM BR 0.02% INH SOLN 0.5 MG/2.5 ML VIAL INHALATION ×4 (01:52→20:39)
[2024-12-12 04:48] LABS: Hematocrit 41.9 % (42.0-52.0); Hemoglobin 12.6 g/dL (14.0-18.0); Immature Granulocyte Percent A 0.3 % (0-0.5); Lymphocytes Absolute Auto 1.47 K/mm3 (0.9-3.2); Mean Corpuscular HGB Conc 30.1 g/dl (32-36); Mean Corpuscular Hemoglobin 27.0 pg (26-34); Mean Corpuscular Volume 89.9 fl (80-100); Nucleated Red Blood Cells Absolute Auto 0.000 K/mm3 (0.0-0.012); Nucleated Red Blood Cells Perc 0.0 % (0.0-0.2); Platelet Count Result 144 k/mm3 (150-375); Red Blood Count 4.66 M/mm3 (4.6-6.20); White Blood Count 6.0 K/mm3 (4.5-10.0)
[2024-12-12 05:12] LABS: Alveolar/Arterial O2 Gradient 168.0 mmHg; Carboxyhemoglobin 0.8 % THb (0-2.0); Fractional Inspired Oxygen 40 %; HCO3 ABG 28.9 mEq/l (22.0-26.0); Methemoglobin ABG 0.0 %THb (0-1.5); Oxygen Content ABG 17.8 %vol (16.0-22.0); Oxygen Saturation ABG 93.2 % (95.0-100.0); PCO2 ABG 45.0 mmHg (35.0-45.0); PO2 ABG 65.5 mmHg (80.0-100.0); PO2 FiO2 Ratio Arterial Blood 1.64 %; Reduced Hemoglobin 7.7 %THb (0-5.0)
[2024-12-12 05:14] LABS: Arterial Blood Gas Ventilator rate 18 /MIN; Modified Allen's Test Pass; Site Drawn RIGHT RADIAL
[2024-12-12 05:15] LABS: Arterial Blood Gas Tidal Volume 450 ml
[2024-12-12 05:17] LABS: INR 1.3; Prothrombin Time 16.3 Seconds (11.1-14.7)
[2024-12-12 05:18] LABS: Partial Thromboplastin Time 44.5 Seconds (22.3-36.8)
[2024-12-12 05:19] LABS: Alanine Aminotransferase 23 U/L (6-50); Albumin Level 2.9 g/dL (3.5-5.1); Alkaline Phosphatase 93 U/L (38-126); Anion Gap 5 mmol/L (4-12); Aspartate Amino Transferase 27 U/L (17-59); Bilirubin,Total 1.2 mg/dL (0.2-1.3); Blood Urea Nitrogen 16 mg/dL (9-20); Calcium 8.0 mg/dL (8.4-10.2); Carbon Dioxide 29 mmol/L (22-30); Chloride 100 mmol/L (98-107); Estimated CRCL calculation 193 ml/min; Estimated Glomerular Filt Rate > 60; Glucose 122 mg/dL (65-110); Magnesium 1.7 mg/dL (1.6-2.3); Potassium 3.4 mmol/L (3.4-5.0); Sodium 134 mmol/L (137-145); Total Protein 6.2 g/dL (6.3-8.2)
[2024-12-12] MEDS: PROPOFOL IV EMULSION 100 ML 24 MG IV CONT (06:10)
[2024-12-12] MEDS: CENTRAL LINE FLUSH 10 ML IV PUSH ×3 (06:17→22:14)
[2024-12-12] MEDS: MEROPENEM 1 GM in SODIUM CHLORIDE 0.9% IV 100 ML 200 ML IVPB ×3 (06:28→22:13)
--- NOTE | 2024-12-12 07:20 | WPDHPUPDATE1 ---
History and Physical Update Update Date/Time: 12/12/24 07:20 History and Physical has been reviewed, including an updated exam of the patient. There are NO changes in the patient's condition. Risks, benefits, and alternatives have been discussed and questions answered. Patient agrees to proceed with procedure.
[2024-12-12] MEDS: PANTOPRAZOLE SODIUM IV 40 MG VIAL IV PUSH (08:21)
[2024-12-12] MEDS: BISACODYL 10 MG SUPPOSITORY RECTAL (08:21)
[2024-12-12] MEDS: MAGNESIUM SULF 2 GM/WATER 50ML 2 GM/50 ML BAG IVPB (08:22)
[2024-12-12] MEDS: KCL 40 MEQ/WATER 100 ML 100 ML 25 ML IVPB (08:22)
[2024-12-12] MEDS: MINERAL OIL/WHITE PETROLATUM OINTMENT 1 APPLIC EACH EYE ×2 (08:22→20:35)
[2024-12-12] MEDS: VANCOMYCIN 2,000 MG/NS 500 ML 2,000 MG/500 ML BAG 250 MG IVPB ×2 (10:27→22:14)
--- NOTE | 2024-12-12 11:10 | WPDINTPN ---
Progress Note: A&P Assessment and Plan (1) Fever: Code(s): R50.9 - Fever, unspecified Status: Acute Assessment and Plan: 12/09 and 12/09: Continues to have fevers, currently on levofloxacin for Pseudomonas pneumonia 12/08: Metronidazole due to large bowel obstruction and to cover anaerobes -12/07: lower extremity venous Dopplers are negative -12/07: Urine culture negative urine culture -12/07: Blood culture -preliminary are negative x2 -12/09: Sputum culture Gram-positive cocci, identification pending -12/09: chest x-ray shows atelectasis, increased peep to 12 to expand lower lobes of the lungs -12/09; started on meropenem and vancomycin . Discontinued levofloxacin and metronidazole -infectious disease team following, will await new recommendations (2) Acute on chronic respiratory failure with hypoxia and hypercapnia: Code(s): J96.21 - Acute and chronic respiratory failure with hypoxia; J96.22 - Acute and chronic respiratory failure with hypercapnia Status: Acute Assessment and Plan: Acute on chronic respiratory failure secondary to multifactorial combination of COPD, obesity hypoventilation syndrome, left-sided pneumonia, pulmonary edema, atelectasis 11/26: Patient was admitted for increasing/worsening dyspnea 1 day prior to admission. Patient was in the intermediate Unit, evaluated by pulmonology, has been noncompliant with his AVAPS/BiPAP. 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 Also was possibly delirious as he pulled out his IV lines and BiPAP mask. -was on propofol, dropped his blood pressures in the 40s systolic, propofol infusion were discontinued currently sedated with Versed and fentanyl On admission: Chest x-ray shows a consolidation versus atelectasis versus combination of 2 on the left side. Patient is a too big for CT scanner hence unable to evaluate 11/29 bronchoscopy was done. Minimal amount of secretions were seen. Continue bronchodilators, -status post Pulmozyme, Mucomyst nebs -chest PT has been discontinued -status post Solu-Medrol -11/29: Sputum culture is growing Pseudomonas. Nasal MRSA screen was positive. Patient was on vancomycin earlier, which was discontinued -currently on levofloxacin -12/07: Tolerated ASV almost totally evening in the knee got tired, tachycardic, and was placed back on CMV mode of ventilation -Currently on CMV mode of ventilation, 40% FiO2 and peep of 12. -currently only on Precedex, low-dose propofol infusion infusion started on 12/08 as patient was pretty restless only on Precedex 12/09: Discussed with daughter, JOSHUA Bliss, updated her with patient's condition and plan of care. I explained to her in details regarding the need for tracheostomy and PEG tube placement, also discussed with the patient, both of them are agreeable. 12/11: Good response to Lasix GI and ENT planning for PEG and tracheostomy tentatively on 12/12/2024 (3) COPD exacerbation: Code(s): J44.1 - Chronic obstructive pulmonary disease with (acute) exacerbation Status: Acute Assessment and Plan: See above (4) Pneumonia: Code(s): J18.9 - Pneumonia, unspecified organism Status: Acute Assessment and Plan: See above (5) Hypotension: Code(s): I95.9 - Hypotension, unspecified Status: Acute Assessment and Plan: Patient dropped his blood pressure is likely related to propofol infuse and positive-pressure ventilation -on admission to the ICU required phenylephrine push and Levophed infusion Now off pressors -hemodynamically stable (6) Atrial fibrillation with RVR: Code(s): I48.91 - Unspecified atrial fibrillation Status: Acute Assessment and Plan: Patient has a history of AFib with RVR, currently rate controlled but remains in atrial fibrillation -continue Eliquis -given that he has this ileus/small-bowel obstruction, will hold Eliquis and continue heparin infusion (12/08) (7) Type 2 diabetes mellitus: Qualifiers: Diabetes mellitus joint terminal attack controller insulin use: without detention use Diabetes mellitus complication status: without complication Qualified Code(s): E11.9 - Type 2 diabetes mellitus without complications Code(s): E11.9 - Type 2 diabetes mellitus without complications Status: Acute Assessment and Plan: Accu-Cheks and sliding scale insulin Hold Lantus since patient is NPO (8) Essential hypertension: Code(s): I10 - Essential (primary) hypertension Status: Acute Assessment and Plan: Hold antihypertensive medications at this time (9) KATIE (obstructive sleep apnea): Code(s): G47.33 - Obstructive sleep apnea (adult) (pediatric) Status: Acute Assessment and Plan: Non compliant with his CPAP/AVAPS -currently intubated (10) Edema of abdominal wall: Code(s): R60.0 - Localized edema Status: Acute Assessment and Plan: Edema of the abdominal wall on the left side likely related to dependent edema as patient fevers to lay on that side Intermittent Lasix as needed (11) Electrolyte abnormality: Code(s): E87.8 - Other disorders of electrolyte and fluid balance, not elsewhere classified Status: Acute Assessment and Plan: Replace potassium and magnesium (12) Ileus: Code(s): K56.7 - Ileus, unspecified Status: Acute Assessment and Plan: 12/07: Patient has not had any bowel moved, obtained a obstructive series which showed Ileus versus early large bowel obstruction -OG tube to suction -appreciate surgery evaluation and recommendations, no further intervention from surgery, signing off -appreciate GI evaluation and recommendations, started on Dulcolax suppository, MiraLax and Linzess per GI -12/10: patient started to have bowel movements Plan DVT prophylaxis: Apixaban held due to Ileus/SBO, started on heparin infusion currently heparin infusion on hold for tracheostomy and PEG tube Stress ulcer prophylaxis: Protonix Nutrition: Patient did tolerate trickle tube feeds which currently on hold for the procedures Code Status: Full code Critical Care Time Spent: 32 minutes GI and ENT planning for PEG and tracheostomy early next week 12/12: Discussed with daughter, JOSHUA Bliss, updated her with patient's condition and plan of care. She is aware that the patient will be getting a procedure yesterday. She is also aware that he will be going to an LTAC facility at some point after obtaining the tracheostomy and PEG tube placement Due to a high probability of clinically significant, life threatening deterioration, the patient required my highest level of preparedness to intervene emergently and I personally spent this critical care time directly and personally managing the patient. This critical care time included obtaining a history; examining the patient; pulse oximetry; ordering and review of studies; arranging urgent treatment with development of a management plan; evaluation of patient's response to treatment; frequent reassessment; and discussions with other providers. It was exclusive of separately billable procedures and treating other patients and teaching time. Please see Assessment and Plan section and the rest of the note for further information on patient assessment and treatment This dictation may have been done utilizing a voice recognition system. Attempts have been made to correct errors. However, there may be uncorrected grammatical, spelling, and recognitions errors present. Subjective Date/time seen: 12/12/24 11:10 Interval history: Reason for consult: Acute hypoxic and hypercapnic respiratory failure since, hypotension/shock, pneumonia, COPD exacerbation, noncompliance 11/28 intubation 11/29 bronchoscopy 12/09: ETT was exchanged over bougie as it kept popping out from the connecter/adapter 12/12/2024: Patient seen and examined the ICU, remains intubated on CMV mode of ventilation, peep of 12, 40% FiO2. On Precedex and propofol infusion. Patient is awake, pleasant, follows simple commands in all extremities and nods to questions. Afebrile, very good urine output in response to diuresis, hemodynamically stable. Patient did have bowel movement did tolerate trickle tube feeds which are currently on hold for PEG tube and tracheostomy placement today -heparin infusion currently on hold for procedure Review of Systems Review of Systems: ROS unobtainable: Yes unobtainable due to endotracheal tube, unobtainable due to medical condition and unobtainable due to mental status Exam Narrative: General: Significantly obese gentleman, currently intubated, sedated in no acute distress HEENT:? Pupils equal and reactive, sclera is clear, ETT in place Neck:? Thick and short neck Respiratory:? Decreased air entry bilaterally, no wheezing. Breath sounds are improved on the left side but still less than as compared to right side Chest: Left breast is larger than the right, induration, erythema and warmth has improved Cardiac:? Distant heart sounds, irregularly irregular, rate control Abdomen:? Morbidly obese, indurated and firm on the left side with pitting edema, right side is softer with less edema, according the daughter patient prefers to lay on the left side, causing possible dependent edema and swelling. Hypoactive bowel sounds, tympanic on percussion Extremities:? Edema is improving in bilateral lower extremities, palpable pedal pulses Neuro:? Patient is intubated, on propofol and Precedex infusion patient is calm, awake, nods to questions follows simple commands in lower extremities, moves all extremities spontaneously Skin:? Bruising noted on upper extremities, torso, chronic venous stasis changes on bilateral lower extremity Psych:? Unable to assess at this time Objective Data Vital Signs Vital Signs: Vital Signs - 24 hr 12/11/24 11:43 12/11/24 12:00 12/11/24 12:00 Temperature 98.1 F Pulse Rate 71 72 72 Respiratory Rate 23 H Blood Pressure 135/81 Pulse Oximetry 93 94 Oxygen Delivery Mechanical Ventilation Fraction of Inspired Oxygen 50 12/11/24 12:00 12/11/24 12:00 12/11/24 12:00 Temperature Pulse Rate 72 Respiratory Rate 23 H Blood Pressure Pulse Oximetry 94 Oxygen Delivery Mechanical Ventilation Fraction of Inspired Oxygen 50 12/11/24 12:00 12/11/24 13:00 12/11/24 13:11 Temperature 98.2 F Pulse Rate 72 69 69 Respiratory Rate 23 H 22 H 21 H Blood Pressure 153/72 H Pulse Oximetry 95 Oxygen Delivery Fraction of Inspired Oxygen 12/11/24 13:11 12/11/24 14:00 12/11/24 14:00 Temperature Pulse Rate 69 65 65 Respiratory Rate 21 H 20 20 Blood Pressure Pulse Oximetry Oxygen Delivery Fraction of Inspired Oxygen 12/11/24 14:00 12/11/24 14:00 12/11/24 14:40 Temperature 98.5 F Pulse Rate 65 65 68 Respiratory Rate 20 21 H Blood Pressure 138/72 Pulse Oximetry 95 Oxygen Delivery Fraction of Inspired Oxygen 12/11/24 14:43 12/11/24 14:56 12/11/24 15:00 Temperature 98.6 F Pulse Rate 59 L 67 66 Respiratory Rate 23 H 20 Blood Pressure 131/67 Pulse Oximetry 95 93 Oxygen Delivery Mechanical Ventilation Fraction of Inspired Oxygen 45 12/11/24 16:00 12/11/24 16:00 12/11/24 16:00 Temperature 98.7 F Pulse Rate 71 70 Respiratory Rate 22 H Blood Pressure 137/75 Pulse Oximetry 91 Oxygen Delivery Fraction of Inspired Oxygen 45 12/11/24 16:00 12/11/24 16:00 12/11/24 16:00 Temperature Pulse Rate 74 74 Respiratory Rate 22 H 22 H Blood Pressure Pulse Oximetry 91 Oxygen Delivery Mechanical Ventilation Fraction of Inspired Oxygen 12/11/24 16:00 12/11/24 16:00 12/11/24 17:00 Temperature 98.8 F Pulse Rate 75 75 70 Respiratory Rate 22 H 22 H 24 H Blood Pressure 140/80 Pulse Oximetry 97 Oxygen Delivery Fraction of Inspired Oxygen 12/11/24 17:33 12/11/24 18:00 12/11/24 18:00 Temperature Pulse Rate 71 70 70 Respiratory Rate 21 H 21 H Blood Pressure Pulse Oximetry 99 Oxygen Delivery Mechanical Ventilation Fraction of Inspired Oxygen 50 12/11/24 18:00 12/11/24 18:00 12/11/24 19:00 Temperature 98.9 F 99.1 F Pulse Rate 70 70 69 Respiratory Rate 21 H 18 Blood Pressure 136/72 125/78 Pulse Oximetry 98 96 Oxygen Delivery Fraction of Inspired Oxygen 12/11/24 19:49 12/11/24 19:53 12/11/24 20:00 Temperature Pulse Rate 68 69 67 Respiratory Rate 20 20 Blood Pressure Pulse Oximetry 97 Oxygen Delivery Mechanical Ventilation Fraction of Inspired Oxygen 40 12/11/24 20:00 12/11/24 20:00 12/11/24 20:00 Temperature 99.2 F Pulse Rate 67 67 70 Respiratory Rate 22 H 20 Blood Pressure 138/68 Pulse Oximetry 95 Oxygen Delivery Fraction of Inspired Oxygen 12/11/24 20:00 12/11/24 20:10 12/11/24 20:11 Temperature Pulse Rate 64 68 Respiratory Rate 18 22 H Blood Pressure Pulse Oximetry Oxygen Delivery Fraction of Inspired Oxygen 40 12/11/24 20:15 12/11/24 21:00 12/11/24 21:00 Temperature 99.1 F Pulse Rate 68 73 73 Respiratory Rate 22 H 20 23 H Blood Pressure 123/65 Pulse Oximetry 92 Oxygen Delivery Fraction of Inspired Oxygen 12/11/24 21:09 12/11/24 22:00 12/11/24 22:00 Temperature Pulse Rate 73 73 73 Respiratory Rate 20 21 H 21 H Blood Pressure Pulse Oximetry Oxygen Delivery Fraction of Inspired Oxygen 12/11/24 22:00 12/11/24 22:00 12/11/24 23:00 Temperature 98.9 F 99.0 F Pulse Rate 73 73 69 Respiratory Rate 21 H 19 Blood Pressure 128/66 152/77 H Pulse Oximetry 92 92 Oxygen Delivery Fraction of Inspired Oxygen 12/11/24 23:37 12/12/24 00:00 12/12/24 00:00 Temperature Pulse Rate 71 68 68 Respiratory Rate 19 19 Blood Pressure Pulse Oximetry 97 Oxygen Delivery Mechanical Ventilation Fraction of Inspired Oxygen 40 12/12/24 00:00 12/12/24 00:00 12/12/24 00:00 Temperature 98.8 F Pulse Rate 66 72 Respiratory Rate 19 Blood Pressure 130/72 Pulse Oximetry 94 Oxygen Delivery Fraction of Inspired Oxygen 40 12/12/24 00:15 12/12/24 00:15 12/12/24 01:00 Temperature 98.6 F Pulse Rate 77 77 67 Respiratory Rate 22 H 22 H 18 Blood Pressure 126/107 H Pulse Oximetry 93 Oxygen Delivery Fraction of Inspired Oxygen 12/12/24 01:46 12/12/24 01:46 12/12/24 01:54 Temperature Pulse Rate 71 71 63 Respiratory Rate 18 18 18 Blood Pressure Pulse Oximetry Oxygen Delivery Fraction of Inspired Oxygen 12/12/24 02:00 12/12/24 02:00 12/12/24 02:00 Temperature 97.7 F Pulse Rate 64 64 63 Respiratory Rate 18 18 Blood Pressure 112/70 Pulse Oximetry 90 Oxygen Delivery Fraction of Inspired Oxygen 12/12/24 02:00 12/12/24 03:00 12/12/24 03:10 Temperature 97.0 F L Pulse Rate 63 65 74 Respiratory Rate 18 18 18 Blood Pressure 148/72 H Pulse Oximetry 90 Oxygen Delivery Fraction of Inspired Oxygen 12/12/24 03:10 12/12/24 04:00 12/12/24 04:00 Temperature 96.9 F L Pulse Rate 74 66 64 Respiratory Rate 18 18 18 Blood Pressure 149/90 H Pulse Oximetry 95 Oxygen Delivery Fraction of Inspired Oxygen 12/12/24 04:00 12/12/24 04:00 12/12/24 04:00 Temperature Pulse Rate 64 66 Respiratory Rate 18 Blood Pressure Pulse Oximetry Oxygen Delivery Fraction of Inspired Oxygen 40 12/12/24 05:00 12/12/24 05:01 12/12/24 06:00 Temperature 96.6 F L 96.3 F L Pulse Rate 56 L 61 57 L Respiratory Rate 18 18 Blood Pressure 126/73 129/75 Pulse Oximetry 93 94 94 Oxygen Delivery Mechanical Ventilation Fraction of Inspired Oxygen 40 12/12/24 06:00 12/12/24 06:09 12/12/24 06:10 Temperature Pulse Rate 57 L 63 63 Respiratory Rate 18 18 Blood Pressure Pulse Oximetry Oxygen Delivery Fraction of Inspired Oxygen 12/12/24 06:14 12/12/24 06:14 12/12/24 07:00 Temperature 96.3 F L Pulse Rate 55 L 55 L 57 L Respiratory Rate 18 18 18 Blood Pressure 132/79 Pulse Oximetry 96 Oxygen Delivery Fraction of Inspired Oxygen 12/12/24 08:00 12/12/24 08:00 12/12/24 08:00 Temperature 96.5 F L Pulse Rate 61 61 62 Respiratory Rate 18 18 18 Blood Pressure 132/87 Pulse Oximetry 96 Oxygen Delivery Fraction of Inspired Oxygen 12/12/24 08:25 12/12/24 08:27 12/12/24 08:36 Temperature Pulse Rate 62 62 67 Respiratory Rate 19 20 Blood Pressure Pulse Oximetry 95 Oxygen Delivery Mechanical Ventilation Fraction of Inspired Oxygen 40 12/12/24 08:41 12/12/24 09:00 12/12/24 09:34 Temperature 96.6 F L Pulse Rate 67 72 66 Respiratory Rate 19 18 20 Blood Pressure 130/80 Pulse Oximetry 97 Oxygen Delivery Fraction of Inspired Oxygen 12/12/24 09:34 12/12/24 10:00 12/12/24 10:00 Temperature Pulse Rate 66 79 79 Respiratory Rate 20 18 18 Blood Pressure Pulse Oximetry Oxygen Delivery Fraction of Inspired Oxygen 12/12/24 10:00 12/12/24 10:38 12/12/24 11:00 Temperature 96.6 F L 96.7 F L Pulse Rate 65 63 69 Respiratory Rate 18 20 Blood Pressure 123/71 130/83 Pulse Oximetry 95 96 97 Oxygen Delivery Mechanical Ventilation Fraction of Inspired Oxygen 40 12/12/24 11:03 12/12/24 11:03 Temperature Pulse Rate 64 64 Respiratory Rate 20 20 Blood Pressure Pulse Oximetry Oxygen Delivery Fraction of Inspired Oxygen Intake/Output Intake/Output: Intake & Output 12/09/24 12/10/24 12/11/24 12/12/24 23:59 23:59 23:59 23:59 Intake Total 4263.7 2957.9 2701.2 1298.9 Output Total 1725 1810 5175 1100 Balance 2538.7 1147.9 -2473.8 198.9 Meds/Results Medications: Active Medications Generic Name Dose Route Start Last Admin Trade Name Freq PRN Reason Stop Dose Admin Acetaminophen 650 mg 11/26/24 14:25 12/07/24 04:00 Acetaminophen 325 Mg Tablet PO 650 mg Q6H PRN Administration Mild Pain (1-3) or Fever Apixaban 5 mg 11/26/24 21:00 12/07/24 21:07 Apixaban 5 Mg Tablet PO 5 mg On Hold: 12/08/24 07:15 Q12HR EDMUNDO Administration Bisacodyl 10 mg 12/09/24 09:00 12/12/24 08:21 Bisacodyl 10 Mg Suppository RECTAL 10 mg QAM EDMUNDO Administration Dextrose 12.5 gm 11/26/24 16:15 Dextrose 50% 25 Gm/50 Ml Syringe IV PUSH PRN PRN Hypoglycemia Protocol Glucagon 1 mg 11/26/24 16:15 Glucagon For Inj 1 Mg Vial IM PRN PRN Hypoglycemia Protocol Glucose 15 gm 11/26/24 16:15 Glucose Oral Gel 15 Gm Of Glucse In 37.5 Gm Tube PO PRN PRN Hypoglycemia Protocol Heparin Sodium (Porcine) 10,000 units 12/08/24 07:12 Heparin Sodium 5,000 Units/Ml Vial IV PUSH PRN PRN aPTT less than 55 seconds Heparin Sodium (Porcine) 5,000 units 12/08/24 07:12 12/10/24 01:46 Heparin Sodium 5,000 Units/Ml Vial IV PUSH 5,000 units PRN PRN Administration aPTT 55 - 70 seconds Dextrose 1,000 mls @ 100 mls/hr 11/26/24 16:15 Dextrose 5% 1,000 Ml IVPB PRN PRN Hypoglycemia Protocol Dexmedetomidine HCl 400 mcg in 100 mls @ 20 mls/hr 12/06/24 12:25 12/12/24 11:03 Precedex 400 Mcg/100 Ml IV CONT 0.4 mcg/kg/hr .Q5H EDMUNDO 20 mls/hr Protocol Administration 0.4 MCG/KG/HR Heparin Sodium/Dextrose 25,000 units in 250 mls @ 0 mls/hr 12/08/24 07:15 12/12/24 04:00 Heparin Sodium/D5w 100 Units/Ml IV CONT 0 units/hr On Hold: 12/12/24 04:00 .Q0M EDMUNDO 0 mls/hr Comment: Hold Heparin gtt. for Protocol Titration procedures. Propofol 100 mls @ 24 mls/hr 12/08/24 16:20 12/12/24 10:00 Diprivan IV CONT 25 mcg/kg/min .Q4H10M EDMUNDO 30 mls/hr Protocol Titration 20 MCG/KG/MIN Meropenem 1 gm/ Sodium 100 mls @ 200 mls/hr 12/09/24 14:00 12/12/24 06:28 Chloride IVPB 200 mls/hr Q8HR EDMUNDO Administration Vancomycin HCl 2,000 mg in 500 mls @ 250 mls/hr 12/10/24 22:00 12/12/24 10:27 Vancomycin 2,000 Mg/Ns 500 Ml IVPB 250 mls/hr Q12H EDMUNDO Administration Potassium Chloride 100 mls @ 25 mls/hr 12/12/24 07:49 12/12/24 08:22 Kcl 40 Meq/Water 100 Ml IVPB 12/12/24 11:48 25 mls/hr ONCE ONE Administration Insulin Aspart 3 - 6 units 11/28/24 06:50 12/12/24 06:35 Insulin Aspart (*Bkc) 100 Units/Ml SUB-Q Not Given Q6HR [facility] Protocol Insulin Glargine 25 units 12/01/24 09:00 12/07/24 08:34 Insulin Glargine (*Bkc) 100 Units/Ml SUB-Q 25 units On Hold: 12/08/24 07:18 QAM [facility] Administration Ipratropium [place] 0.5 mg 11/29/24 08:00 12/12/24 08:18 Ipratropium Br 0.02% Inh Soln 0.5 Mg/2.5 Ml Vial INHALATION 0.5 mg Q6HRT [facility] Administration Levalbuterol HCl 1.25 mg 11/29/24 20:00 12/12/24 08:18 Levalbuterol Neb 1.25 Mg/3 Ml INHALATION 1.25 mg Q6HRT [facility] Administration Linaclotide 145 mcg 12/10/24 06:30 12/12/24 07:48 Linaclotide 145 Mcg Capsule PO Not Given DAILY@0630 [facility] Multi-Ingred Cream/Lotion/Oil/Oint 1 applic 11/28/24 09:00 12/12/24 08:22 Mineral Oil/White Petrolatum Ointment EACH EYE 1 applic Q12HR [facility] Administration Pantoprazole Sodium 40 mg 11/29/24 09:00 12/12/24 08:21 Pantoprazole Sodium Iv 40 Mg Vial IV PUSH 40 mg QAM [facility] Administration Polyethylene Glycol 17 gm 12/08/24 13:35 12/12/24 07:48 Polyethylene Glycol 3350 17 Gm Powd.Pack PO Not Given Q8HR [facility] Senna/Docusate Sodium 1 tab 12/06/24 21:00 12/07/24 21:07 Senna/Docusate Sodium Tablet PO 1 tab On Hold: 12/08/24 07:17 HS EDMUNDO Administration Sertraline HCl 50 mg 11/27/24 09:00 11/28/24 12:06 Sertraline Hcl 50 Mg Tablet PO 50 mg On Hold: 11/29/24 08:16 DAILY EDMUNDO Administration Sodium Chloride 10 ml 11/28/24 14:00 12/12/24 06:17 Central Line Flush IV PUSH 10 ml Q8HR EDMUNDO Administration Sodium Chloride 20 ml 11/28/24 11:53 12/03/24 05:31 Central Line Flush IV PUSH 20 ml PRN PRN Administration after blood draws Radiology Results: ITS Impressions Venous Doppler Study 12/07/24 13:02 IMPRESSION: 1: No lower extremity deep venous thrombosis. Chest X-Ray 12/12/24 09:33 IMPRESSION: 1. Persistent complete left lower lobe atelectasis. Aspiration and/or mucous plug suspected. 2. Persistent left pleural effusion. 3. Persistent right basilar atelectasis and/or airspace disease. Labs Labs: Laboratory Results - last 24 hr 12/11/24 12/11/24 12/12/24 11:59 17:10 00:23 WBC RBC Hgb Hct MCV MCH MCHC RDW Plt Count MPV Immature Gran % (Auto) Neut % (Auto) Lymph % (Auto) Union % (Auto) Eos % (Auto) Baso % (Auto) Lymph # (Auto) [place] # (Auto) Eos # (Auto) Baso # (Auto) Abs Immat Gran (auto) Absolute Neuts (auto) Absolute Nucleated RBC Nucleated RBC % PT INR APTT Puncture Site ABG pH ABG pCO2 ABG pO2 ABG PO2/FiO2 Ratio ABG HCO3 ABG O2 Saturation ABG O2 Content ABG Base Excess A-a Gradient Oxyhemoglobin Carboxyhemoglobin Methemoglobin Reduced Hemoglobin Total Hemoglobin O2 Delivery Device O2 Liters/Min Minute Volume Vent Rate Vent Mode FiO2 Tidal Volume PEEP Peak Inspir Pressure Pressure Support Sodium Potassium Chloride Carbon Dioxide Anion Gap BUN Creatinine Estim Creat Clear Calc Estimated GFR Glucose POC Capillary Glucose 129 H 108 H 136 H Calcium Phosphorus Magnesium Total Bilirubin AST ALT Alkaline Phosphatase Total Protein Albumin Vancomycin Trough 12/12/24 12/12/24 12/12/24 04:37 05:00 06:34 WBC 6.0 RBC 4.66 Hgb 12.6 L Hct 41.9 L MCV 89.9 MCH 27.0 MCHC 30.1 L RDW 16.1 H Plt Count 144 L MPV 10.1 Immature Gran % (Auto) 0.3 Neut % (Auto) 65.2 Lymph % (Auto) 24.5 Union % (Auto) 5.5 Eos % (Auto) 4.0 Baso % (Auto) 0.5 Lymph # (Auto) 1.47 Union # (Auto) 0.3 Eos # (Auto) 0.2 Baso # (Auto) 0.0 Abs Immat Gran (auto) 0.02 Absolute Neuts (auto) 3.9 Absolute Nucleated RBC 0.000 Nucleated RBC % 0.0 PT 16.3 H INR 1.3 APTT 44.5 H Puncture Site Right radial ABG pH 7.425 ABG pCO2 45.0 ABG pO2 65.5 L ABG PO2/FiO2 Ratio 1.64 ABG HCO3 28.9 H ABG O2 Saturation 93.2 L ABG O2 Content 17.8 ABG Base Excess 3.8 A-a Gradient 168.0 Oxyhemoglobin 91.5 Carboxyhemoglobin 0.8 Methemoglobin 0.0 Reduced Hemoglobin 7.7 H Total Hemoglobin 13.8 O2 Delivery Device Ventilator O2 Liters/Min Not Reportable Minute Volume Not Reportable Vent Rate 18 Vent Mode Cmv FiO2 40 Tidal Volume 450 PEEP 12 Peak Inspir Pressure Not Reportable Pressure Support Not Reportable Sodium 134 L Potassium 3.4 Chloride 100 Carbon Dioxide 29 Anion Gap 5 BUN 16 Creatinine 0.54 L Estim Creat Clear Calc 193 Estimated GFR > 60 Glucose 122 H POC Capillary Glucose 126 H Calcium 8.0 L Phosphorus 3.1 Magnesium 1.7 Total Bilirubin 1.2 AST 27 ALT 23 Alkaline Phosphatase 93 Total Protein 6.2 L Albumin 2.9 L Vancomycin Trough 12/12/24 08:30 WBC RBC Hgb Hct MCV MCH MCHC RDW Plt Count MPV Immature Gran % (Auto) Neut % (Auto) Lymph % (Auto) Union % (Auto) Eos % (Auto) Baso % (Auto) Lymph # (Auto) [place] # (Auto) Eos # (Auto) Baso # (Auto) Abs Immat Gran (auto) Absolute Neuts (auto) Absolute Nucleated RBC Nucleated RBC % PT INR APTT Puncture Site ABG pH ABG pCO2 ABG pO2 ABG PO2/FiO2 Ratio ABG HCO3 ABG O2 Saturation ABG O2 Content ABG Base Excess A-a Gradient Oxyhemoglobin Carboxyhemoglobin Methemoglobin Reduced Hemoglobin Total Hemoglobin O2 Delivery Device O2 Liters/Min Minute Volume Vent Rate Vent Mode FiO2 Tidal Volume PEEP Peak Inspir Pressure Pressure Support Sodium Potassium Chloride Carbon Dioxide Anion Gap BUN Creatinine Estim Creat Clear Calc Estimated GFR Glucose POC Capillary Glucose Calcium Phosphorus Magnesium Total Bilirubin AST ALT Alkaline Phosphatase Total Protein Albumin Vancomycin Trough 18.4 Quality VTE Prophylaxis VTE prophylaxis: pharmacologic ordered
--- NOTE | 2024-12-12 11:24 | PCFNICU ---
ICU Rounding Note: Pt current nutrition is NPO for procedure. Nutrition recommendation: Restart enteral nutrition when procedure is complete: Vital High Protein @ 20 ml/h with eventual goal rate of 70 ml/h when tolerating and propofol titrated down. Flush 30 ml q 4 h Last recorded weight is 189.5 kg. Bowel Motility: +1 BM 12/08 Labs Reviewed: 12/12/24 Hgb 12.6, hct 41.9, Alb 2.9, Na 134, Cre .54, Glu 122 Meds Noted: Precedex, propofol @ 30 ml/h = 792 kcal. Lasix Skin: No skin issues Additional Notes: Pt NPO for placement of trach/Peg today. Recommend staying with Vital HP because of protein energy needs and low TF rate. Resume same TF orders when medically able. Following daily in ICU rounds. Will monitor weight, labs, skin, diet orders, meds every Thursday and Thursday. .
[2024-12-12] MEDS: fentaNYL CITRATE INJ (*CRX) 100 MCG/2 ML VIAL IV PUSH (11:25)
--- NOTE | 2024-12-12 11:27 | WPDINFPN2 ---
Progress Note: A&P Assessment and Plan (1) Fever: Code(s): R50.9 - Fever, unspecified Status: Acute Assessment and Plan: -Fever resolving -Await cultures results (2) Acute on chronic respiratory failure with hypoxia and hypercapnia: Code(s): J96.21 - Acute and chronic respiratory failure with hypoxia; J96.22 - Acute and chronic respiratory failure with hypercapnia Status: Acute Assessment and Plan: -Management as per ICU service (3) Pneumonia: Code(s): J18.9 - Pneumonia, unspecified organism Status: Acute Assessment and Plan: -Continue antimicrobials -Patient improving (4) Ileus: Code(s): K56.7 - Ileus, unspecified Status: Acute Assessment and Plan: -General Surgery service following (5) Pseudomonas respiratory infection: Code(s): J98.8 - Other specified respiratory disorders; B96.5 - Pseudomonas (aeruginosa) (mallei) (pseudomallei) as the cause of diseases classified elsewhere Status: Acute Assessment and Plan: -S/P Cefepime, then Levofloxacin Plan Await repeat sputum and blood cultures -Continue Vancomycin IV for now -Continue Meropenem for coverage of pneumonia, possible MDRO, etc -Continue antimicrobials to complete 7 day course -Follow CBC and renal function -Ventilator management as per ICU service Discussed with Dr. Morocho today Patient was seen via video telehealth consultation with the assistance of staff. Chart, data, and patient independently reviewed. Patient was located at [facility] while I was located in my [place] office. Subjective Date/time seen: 12/12/24 11:27 Interval history: Patient remains intubated. Plans for tracheostomy and long-term ventilator weaning. PEG in place Review of Systems Review of Systems: ROS unobtainable: Yes unobtainable due to endotracheal tube and unobtainable due to medical condition Exam Narrative: Gen: intubated, sedated HEENT: ETT in place, NG tube in place Pulm: on ventilator Abd: obese; PEG in place Ext: 1+ lower extremity edema Lines: Right IJV catheter Objective Data Vital Signs Vital Signs: Vital Signs - 24 hr 12/11/24 11:43 12/11/24 12:00 12/11/24 12:00 Temperature 98.1 F Pulse Rate 71 72 72 Respiratory Rate 23 H Blood Pressure 135/81 Pulse Oximetry 93 94 Oxygen Delivery Mechanical Ventilation Fraction of Inspired Oxygen 50 12/11/24 12:00 12/11/24 12:00 12/11/24 12:00 Temperature Pulse Rate 72 Respiratory Rate 23 H Blood Pressure Pulse Oximetry 94 Oxygen Delivery Mechanical Ventilation Fraction of Inspired Oxygen 50 12/11/24 12:00 12/11/24 13:00 12/11/24 13:11 Temperature 98.2 F Pulse Rate 72 69 69 Respiratory Rate 23 H 22 H 21 H Blood Pressure 153/72 H Pulse Oximetry 95 Oxygen Delivery Fraction of Inspired Oxygen 12/11/24 13:11 12/11/24 14:00 12/11/24 14:00 Temperature Pulse Rate 69 65 65 Respiratory Rate 21 H 20 20 Blood Pressure Pulse Oximetry Oxygen Delivery Fraction of Inspired Oxygen 12/11/24 14:00 12/11/24 14:00 12/11/24 14:40 Temperature 98.5 F Pulse Rate 65 65 68 Respiratory Rate 20 21 H Blood Pressure 138/72 Pulse Oximetry 95 Oxygen Delivery Fraction of Inspired Oxygen 12/11/24 14:43 12/11/24 14:56 12/11/24 15:00 Temperature 98.6 F Pulse Rate 59 L 67 66 Respiratory Rate 23 H 20 Blood Pressure 131/67 Pulse Oximetry 95 93 Oxygen Delivery Mechanical Ventilation Fraction of Inspired Oxygen 45 12/11/24 16:00 12/11/24 16:00 12/11/24 16:00 Temperature 98.7 F Pulse Rate 71 70 Respiratory Rate 22 H Blood Pressure 137/75 Pulse Oximetry 91 Oxygen Delivery Fraction of Inspired Oxygen 45 12/11/24 16:00 12/11/24 16:00 12/11/24 16:00 Temperature Pulse Rate 74 74 Respiratory Rate 22 H 22 H Blood Pressure Pulse Oximetry 91 Oxygen Delivery Mechanical Ventilation Fraction of Inspired Oxygen 12/11/24 16:00 12/11/24 16:00 12/11/24 17:00 Temperature 98.8 F Pulse Rate 75 75 70 Respiratory Rate 22 H 22 H 24 H Blood Pressure 140/80 Pulse Oximetry 97 Oxygen Delivery Fraction of Inspired Oxygen 12/11/24 17:33 12/11/24 18:00 12/11/24 18:00 Temperature Pulse Rate 71 70 70 Respiratory Rate 21 H 21 H Blood Pressure Pulse Oximetry 99 Oxygen Delivery Mechanical Ventilation Fraction of Inspired Oxygen 50 12/11/24 18:00 12/11/24 18:00 12/11/24 19:00 Temperature 98.9 F 99.1 F Pulse Rate 70 70 69 Respiratory Rate 21 H 18 Blood Pressure 136/72 125/78 Pulse Oximetry 98 96 Oxygen Delivery Fraction of Inspired Oxygen 12/11/24 19:49 12/11/24 19:53 12/11/24 20:00 Temperature Pulse Rate 68 69 67 Respiratory Rate 20 20 Blood Pressure Pulse Oximetry 97 Oxygen Delivery Mechanical Ventilation Fraction of Inspired Oxygen 40 12/11/24 20:00 12/11/24 20:00 12/11/24 20:00 Temperature 99.2 F Pulse Rate 67 67 70 Respiratory Rate 22 H 20 Blood Pressure 138/68 Pulse Oximetry 95 Oxygen Delivery Fraction of Inspired Oxygen 12/11/24 20:00 12/11/24 20:10 12/11/24 20:11 Temperature Pulse Rate 64 68 Respiratory Rate 18 22 H Blood Pressure Pulse Oximetry Oxygen Delivery Fraction of Inspired Oxygen 40 12/11/24 20:15 12/11/24 21:00 12/11/24 21:00 Temperature 99.1 F Pulse Rate 68 73 73 Respiratory Rate 22 H 20 23 H Blood Pressure 123/65 Pulse Oximetry 92 Oxygen Delivery Fraction of Inspired Oxygen 12/11/24 21:09 12/11/24 22:00 12/11/24 22:00 Temperature Pulse Rate 73 73 73 Respiratory Rate 20 21 H 21 H Blood Pressure Pulse Oximetry Oxygen Delivery Fraction of Inspired Oxygen 12/11/24 22:00 12/11/24 22:00 12/11/24 23:00 Temperature 98.9 F 99.0 F Pulse Rate 73 73 69 Respiratory Rate 21 H 19 Blood Pressure 128/66 152/77 H Pulse Oximetry 92 92 Oxygen Delivery Fraction of Inspired Oxygen 12/11/24 23:37 12/12/24 00:00 12/12/24 00:00 Temperature Pulse Rate 71 68 68 Respiratory Rate 19 19 Blood Pressure Pulse Oximetry 97 Oxygen Delivery Mechanical Ventilation Fraction of Inspired Oxygen 40 12/12/24 00:00 12/12/24 00:00 12/12/24 00:00 Temperature 98.8 F Pulse Rate 66 72 Respiratory Rate 19 Blood Pressure 130/72 Pulse Oximetry 94 Oxygen Delivery Fraction of Inspired Oxygen 40 12/12/24 00:15 12/12/24 00:15 12/12/24 01:00 Temperature 98.6 F Pulse Rate 77 77 67 Respiratory Rate 22 H 22 H 18 Blood Pressure 126/107 H Pulse Oximetry 93 Oxygen Delivery Fraction of Inspired Oxygen 12/12/24 01:46 12/12/24 01:46 12/12/24 01:54 Temperature Pulse Rate 71 71 63 Respiratory Rate 18 18 18 Blood Pressure Pulse Oximetry Oxygen Delivery Fraction of Inspired Oxygen 12/12/24 02:00 12/12/24 02:00 12/12/24 02:00 Temperature 97.7 F Pulse Rate 64 64 63 Respiratory Rate 18 18 Blood Pressure 112/70 Pulse Oximetry 90 Oxygen Delivery Fraction of Inspired Oxygen 12/12/24 02:00 12/12/24 03:00 12/12/24 03:10 Temperature 97.0 F L Pulse Rate 63 65 74 Respiratory Rate 18 18 18 Blood Pressure 148/72 H Pulse Oximetry 90 Oxygen Delivery Fraction of Inspired Oxygen 12/12/24 03:10 12/12/24 04:00 12/12/24 04:00 Temperature 96.9 F L Pulse Rate 74 66 64 Respiratory Rate 18 18 18 Blood Pressure 149/90 H Pulse Oximetry 95 Oxygen Delivery Fraction of Inspired Oxygen 12/12/24 04:00 12/12/24 04:00 12/12/24 04:00 Temperature Pulse Rate 64 66 Respiratory Rate 18 Blood Pressure Pulse Oximetry Oxygen Delivery Fraction of Inspired Oxygen 40 12/12/24 05:00 12/12/24 05:01 12/12/24 06:00 Temperature 96.6 F L 96.3 F L Pulse Rate 56 L 61 57 L Respiratory Rate 18 18 Blood Pressure 126/73 129/75 Pulse Oximetry 93 94 94 Oxygen Delivery Mechanical Ventilation Fraction of Inspired Oxygen 40 12/12/24 06:00 12/12/24 06:09 12/12/24 06:10 Temperature Pulse Rate 57 L 63 63 Respiratory Rate 18 18 Blood Pressure Pulse Oximetry Oxygen Delivery Fraction of Inspired Oxygen 12/12/24 06:14 12/12/24 06:14 12/12/24 07:00 Temperature 96.3 F L Pulse Rate 55 L 55 L 57 L Respiratory Rate 18 18 18 Blood Pressure 132/79 Pulse Oximetry 96 Oxygen Delivery Fraction of Inspired Oxygen 12/12/24 08:00 12/12/24 08:00 12/12/24 08:00 Temperature 96.5 F L Pulse Rate 61 61 62 Respiratory Rate 18 18 18 Blood Pressure 132/87 Pulse Oximetry 96 Oxygen Delivery Fraction of Inspired Oxygen 12/12/24 08:00 12/12/24 08:00 12/12/24 08:25 Temperature Pulse Rate 62 Respiratory Rate Blood Pressure Pulse Oximetry 96 95 Oxygen Delivery Mechanical Ventilation Mechanical Ventilation Fraction of Inspired Oxygen 40 40 40 12/12/24 08:27 12/12/24 08:36 12/12/24 08:41 Temperature Pulse Rate 62 67 67 Respiratory Rate 19 20 19 Blood Pressure Pulse Oximetry Oxygen Delivery Fraction of Inspired Oxygen 12/12/24 09:00 12/12/24 09:34 12/12/24 09:34 Temperature 96.6 F L Pulse Rate 72 66 66 Respiratory Rate 18 20 20 Blood Pressure 130/80 Pulse Oximetry 97 Oxygen Delivery Fraction of Inspired Oxygen 12/12/24 10:00 12/12/24 10:00 12/12/24 10:00 Temperature 96.6 F L Pulse Rate 79 79 65 Respiratory Rate 18 18 18 Blood Pressure 123/71 Pulse Oximetry 95 Oxygen Delivery Fraction of Inspired Oxygen 12/12/24 10:38 12/12/24 11:00 12/12/24 11:03 Temperature 96.7 F L Pulse Rate 63 69 64 Respiratory Rate 20 20 Blood Pressure 130/83 Pulse Oximetry 96 97 Oxygen Delivery Mechanical Ventilation Fraction of Inspired Oxygen 40 12/12/24 11:03 Temperature Pulse Rate 64 Respiratory Rate 20 Blood Pressure Pulse Oximetry Oxygen Delivery Fraction of Inspired Oxygen Intake/Output Intake/Output: Intake & Output 12/09/24 12/10/24 12/11/24 12/12/24 23:59 23:59 23:59 23:59 Intake Total 4263.7 2957.9 2701.2 1298.9 Output Total 1725 1810 5175 1100 Balance 2538.7 1147.9 -2473.8 198.9 Meds/Results Medications: Active Medications Generic Name Dose Route Start Last Admin Trade Name Freq PRN Reason Stop Dose Admin Acetaminophen 650 mg 11/26/24 14:25 12/07/24 04:00 Acetaminophen 325 Mg Tablet PO 650 mg Q6H PRN Administration Mild Pain (1-3) or Fever Apixaban 5 mg 11/26/24 21:00 12/07/24 21:07 Apixaban 5 Mg Tablet PO 5 mg On Hold: 12/08/24 07:15 Q12HR EDMUNDO Administration Bisacodyl 10 mg 12/09/24 09:00 12/12/24 08:21 Bisacodyl 10 Mg Suppository RECTAL 10 mg QAM EDMUNDO Administration Dextrose 12.5 gm 11/26/24 16:15 Dextrose 50% 25 Gm/50 Ml Syringe IV PUSH PRN PRN Hypoglycemia Protocol Glucagon 1 mg 11/26/24 16:15 Glucagon For Inj 1 Mg Vial IM PRN PRN Hypoglycemia Protocol Glucose 15 gm 11/26/24 16:15 Glucose Oral Gel 15 Gm Of Glucse In 37.5 Gm Tube PO PRN PRN Hypoglycemia Protocol Heparin Sodium (Porcine) 10,000 units 12/08/24 07:12 Heparin Sodium 5,000 Units/Ml Vial IV PUSH PRN PRN aPTT less than 55 seconds Heparin Sodium (Porcine) 5,000 units 12/08/24 07:12 12/10/24 01:46 Heparin Sodium 5,000 Units/Ml Vial IV PUSH 5,000 units PRN PRN Administration aPTT 55 - 70 seconds Dextrose 1,000 mls @ 100 mls/hr 11/26/24 16:15 Dextrose 5% 1,000 Ml IVPB PRN PRN Hypoglycemia Protocol Dexmedetomidine HCl 400 mcg in 100 mls @ 20 mls/hr 12/06/24 12:25 12/12/24 11:03 Precedex 400 Mcg/100 Ml IV CONT 0.4 mcg/kg/hr .Q5H EDMUNDO 20 mls/hr Protocol Administration 0.4 MCG/KG/HR Heparin Sodium/Dextrose 25,000 units in 250 mls @ 0 mls/hr 12/08/24 07:15 12/12/24 04:00 Heparin Sodium/D5w 100 Units/Ml IV CONT 0 units/hr On Hold: 12/12/24 04:00 .Q0M EDMUNDO 0 mls/hr Comment: Hold Heparin gtt. for Protocol Titration procedures. Propofol 100 mls @ 24 mls/hr 12/08/24 16:20 12/12/24 10:00 Diprivan IV CONT 25 mcg/kg/min .Q4H10M EDMUNDO 30 mls/hr Protocol Titration 20 MCG/KG/MIN Meropenem 1 gm/ Sodium 100 mls @ 200 mls/hr 12/09/24 14:00 12/12/24 06:28 Chloride IVPB 200 mls/hr Q8HR EDMUNDO Administration Vancomycin HCl 2,000 mg in 500 mls @ 250 mls/hr 12/10/24 22:00 12/12/24 10:27 Vancomycin 2,000 Mg/Ns 500 Ml IVPB 250 mls/hr Q12H EDMUNDO Administration Potassium Chloride 100 mls @ 25 mls/hr 12/12/24 07:49 12/12/24 08:22 Kcl 40 Meq/Water 100 Ml IVPB 12/12/24 11:48 25 mls/hr ONCE ONE Administration Insulin Aspart 3 - 6 units 11/28/24 06:50 12/12/24 06:35 Insulin Aspart (*Bkc) 100 Units/Ml SUB-Q Not Given Q6HR [facility] Protocol Insulin Glargine 25 units 12/01/24 09:00 12/07/24 08:34 Insulin Glargine (*Bkc) 100 Units/Ml SUB-Q 25 units On Hold: 12/08/24 07:18 QAM EDMUNDO Administration Ipratropium [place] 0.5 mg 11/29/24 08:00 12/12/24 08:18 Ipratropium Br 0.02% Inh Soln 0.5 Mg/2.5 Ml Vial INHALATION 0.5 mg Q6HRT EDMUNDO Administration Levalbuterol HCl 1.25 mg 11/29/24 20:00 12/12/24 08:18 Levalbuterol Neb 1.25 Mg/3 Ml INHALATION 1.25 mg Q6HRT EDMUNDO Administration Linaclotide 145 mcg 12/10/24 06:30 12/12/24 07:48 Linaclotide 145 Mcg Capsule PO Not Given DAILY@0630 [facility] Multi-Ingred Cream/Lotion/Oil/Oint 1 applic 11/28/24 09:00 12/12/24 08:22 Mineral Oil/White Petrolatum Ointment EACH EYE 1 applic Q12HR EDMUNDO Administration Pantoprazole Sodium 40 mg 11/29/24 09:00 12/12/24 08:21 Pantoprazole Sodium Iv 40 Mg Vial IV PUSH 40 mg QAM EDMUNDO Administration Polyethylene Glycol 17 gm 12/08/24 13:35 12/12/24 07:48 Polyethylene Glycol 3350 17 Gm Powd.Pack PO Not Given Q8HR [facility] Senna/Docusate Sodium 1 tab 12/06/24 21:00 12/07/24 21:07 Senna/Docusate Sodium Tablet PO 1 tab On Hold: 12/08/24 07:17 HS EDMUNDO Administration Sertraline HCl 50 mg 11/27/24 09:00 11/28/24 12:06 Sertraline Hcl 50 Mg Tablet PO 50 mg On Hold: 11/29/24 08:16 DAILY EDMUNDO Administration Sodium Chloride 10 ml 11/28/24 14:00 12/12/24 06:17 Central Line Flush IV PUSH 10 ml Q8HR EDMUNDO Administration Sodium Chloride 20 ml 11/28/24 11:53 12/03/24 05:31 Central Line Flush IV PUSH 20 ml PRN PRN Administration after blood draws Radiology Results: ITS Impressions Venous Doppler Study 12/07/24 13:02 IMPRESSION: 1: No lower extremity deep venous thrombosis. Chest X-Ray 12/12/24 09:33 IMPRESSION: 1. Persistent complete left lower lobe atelectasis. Aspiration and/or mucous plug suspected. 2. Persistent left pleural effusion. 3. Persistent right basilar atelectasis and/or airspace disease. Labs Labs: Laboratory Results - last 24 hr 12/11/24 12/11/24 12/12/24 11:59 17:10 00:23 WBC RBC Hgb Hct MCV MCH MCHC RDW Plt Count MPV Immature Gran % (Auto) Neut % (Auto) Lymph % (Auto) [place] % (Auto) Eos % (Auto) Baso % (Auto) Lymph # (Auto) [place] # (Auto) Eos # (Auto) Baso # (Auto) Abs Immat Gran (auto) Absolute Neuts (auto) Absolute Nucleated RBC Nucleated RBC % PT INR APTT Puncture Site ABG pH ABG pCO2 ABG pO2 ABG PO2/FiO2 Ratio ABG HCO3 ABG O2 Saturation ABG O2 Content ABG Base Excess A-a Gradient Oxyhemoglobin Carboxyhemoglobin Methemoglobin Reduced Hemoglobin Total Hemoglobin O2 Delivery Device O2 Liters/Min Minute Volume Vent Rate Vent Mode FiO2 Tidal Volume PEEP Peak Inspir Pressure Pressure Support Sodium Potassium Chloride Carbon Dioxide Anion Gap BUN Creatinine Estim Creat Clear Calc Estimated GFR Glucose POC Capillary Glucose 129 H 108 H 136 H Calcium Phosphorus Magnesium Total Bilirubin AST ALT Alkaline Phosphatase Total Protein Albumin Vancomycin Trough 12/12/24 12/12/24 12/12/24 04:37 05:00 06:34 WBC 6.0 RBC 4.66 Hgb 12.6 L Hct 41.9 L MCV 89.9 MCH 27.0 MCHC 30.1 L RDW 16.1 H Plt Count 144 L MPV 10.1 Immature Gran % (Auto) 0.3 Neut % (Auto) 65.2 Lymph % (Auto) 24.5 [place] % (Auto) 5.5 Eos % (Auto) 4.0 Baso % (Auto) 0.5 Lymph # (Auto) 1.47 [place] # (Auto) 0.3 Eos # (Auto) 0.2 Baso # (Auto) 0.0 Abs Immat Gran (auto) 0.02 Absolute Neuts (auto) 3.9 Absolute Nucleated RBC 0.000 Nucleated RBC % 0.0 PT 16.3 H INR 1.3 APTT 44.5 H Puncture Site Right radial ABG pH 7.425 ABG pCO2 45.0 ABG pO2 65.5 L ABG PO2/FiO2 Ratio 1.64 ABG HCO3 28.9 H ABG O2 Saturation 93.2 L ABG O2 Content 17.8 ABG Base Excess 3.8 A-a Gradient 168.0 Oxyhemoglobin 91.5 Carboxyhemoglobin 0.8 Methemoglobin 0.0 Reduced Hemoglobin 7.7 H Total Hemoglobin 13.8 O2 Delivery Device Ventilator O2 Liters/Min Not Reportable Minute Volume Not Reportable Vent Rate 18 Vent Mode Cmv FiO2 40 Tidal Volume 450 PEEP 12 Peak Inspir Pressure Not Reportable Pressure Support Not Reportable Sodium 134 L Potassium 3.4 Chloride 100 Carbon Dioxide 29 Anion Gap 5 BUN 16 Creatinine 0.54 L Estim Creat Clear Calc 193 Estimated GFR > 60 Glucose 122 H POC Capillary Glucose 126 H Calcium 8.0 L Phosphorus 3.1 Magnesium 1.7 Total Bilirubin 1.2 AST 27 ALT 23 Alkaline Phosphatase 93 Total Protein 6.2 L Albumin 2.9 L Vancomycin Trough 12/12/24 08:30 WBC RBC Hgb Hct MCV MCH MCHC RDW Plt Count MPV Immature Gran % (Auto) Neut % (Auto) Lymph % (Auto) [place] % (Auto) Eos % (Auto) Baso % (Auto) Lymph # (Auto) [place] # (Auto) Eos # (Auto) Baso # (Auto) Abs Immat Gran (auto) Absolute Neuts (auto) Absolute Nucleated RBC Nucleated RBC % PT INR APTT Puncture Site ABG pH ABG pCO2 ABG pO2 ABG PO2/FiO2 Ratio ABG HCO3 ABG O2 Saturation ABG O2 Content ABG Base Excess A-a Gradient Oxyhemoglobin Carboxyhemoglobin Methemoglobin Reduced Hemoglobin Total Hemoglobin O2 Delivery Device O2 Liters/Min Minute Volume Vent Rate Vent Mode FiO2 Tidal Volume PEEP Peak Inspir Pressure Pressure Support Sodium Potassium Chloride Carbon Dioxide Anion Gap BUN Creatinine Estim Creat Clear Calc Estimated GFR Glucose POC Capillary Glucose Calcium Phosphorus Magnesium Total Bilirubin AST ALT Alkaline Phosphatase Total Protein Albumin Vancomycin Trough 18.4
--- NOTE | 2024-12-12 15:39 | WPDANESEPPF ---
Anes - Initial Pre Proc Eval Procedure: Operation Date: 12/12/24 12:00 Proposed Procedures p Percutaneous Endoscopic Gastrostomy - Artemio Carroll MD Operation Date: 12/12/24 15:00 Proposed Procedures p Tracheostomy - Sarwat Feliz MD Date/Time: 12/12/24 15:39 Surgeon: Ny Jones DO Pre Op Diagnosis: Hypoxic Respiratory Failure/COPD Exacerbation Patient Data Age: 64 Gender: M Height: 1.83 m Weight: 189.5 kg Last Vital Signs Temp 96.9 F L 12/12/24 12:00 Pulse 76 12/12/24 14:55 Resp 18 12/12/24 14:55 BP 125/81 12/12/24 12:00 Pulse Ox 98 12/12/24 14:01 O2 Del Method Mechanical Ventilation 12/12/24 14:01 O2 Flow Rate 3 11/27/24 11:58 FiO2 40 12/12/24 14:01 Allergies Allergy/AdvReac Type Severity Reaction Status Date / Time tramadol AdvReac urinary Verified 11/26/24 11:11 retention Home Medications ?Medication ?Instructions ?Recorded ?Confirmed ?Type [id number] 300 mcg-K 60 1 tablet PO DAILY 05/13/19 11/26/24 History mcg-lycop 600 mcg-lutein 300 mcg tablet (Centrum Silver Men) Held on 11/26/24. Instructions: Patient no longer taking sertraline 50 mg tablet 50 mg PO DAILY #90 tabs 11/14/19 11/26/24 Rx amlodipine 10 mg tablet 10 mg PO DAILY #90 tabs 03/02/20 11/26/24 Rx Held on 11/26/24. Instructions: Patient no longer taking lisinopril 40 mg tablet See Rx Instructions .Route 01/01/22 11/26/24 Rx .COMPLEX #30 tabs metformin 1,000 mg tablet 1,000 mg PO BID 07/20/24 11/26/24 History apixaban 5 mg tablet (Eliquis) 5 mg PO Q12HR #30 tabs 07/24/24 11/26/24 Rx Held on 11/26/24. Instructions: Patient no longer taking bacitracin 500 unit/gram topical 1 applic topical Q12HR #30 grams 07/24/24 11/26/24 Rx ointment Held on 11/26/24. Instructions: Patient no longer taking furosemide 40 mg tablet 40 mg PO BID #30 tabs 07/24/24 11/26/24 Rx guaifenesin 600 mg tablet, 1,200 mg (2 x 600 mg) PO Q12HR #30 07/24/24 11/26/24 Rx extended release 12 hr (Mucus tabs Relief ER) levalbuterol HCl 1.25 mg/3 mL 1.25 mg (3 mL) inhalation Q4HRT 07/24/24 11/26/24 Rx solution for nebulization PRN shortness of breath or wheezing #30 mL umeclidinium 62.5 mcg-vilanterol 1 inh inhalation DAILY #60 ea 07/24/24 11/26/24 Rx 25 mcg/actuation powdr for inhalation (Anoro Ellipta) Laboratory Tests 12/11/24 12/12/24 12/12/24 17:10 00:23 04:37 WBC 6.0 K/mm3 (4.5-10.0) RBC 4.66 M/mm3 (4.6-6.20) Hgb 12.6 L g/dL (14.0-18.0) Hct 41.9 L % (42.0-52.0) MCV 89.9 fl (80-100) MCH 27.0 pg (26-34) MCHC 30.1 L g/dl (32-36) RDW 16.1 H % (11.5-14.5) Plt Count 144 L k/mm3 (150-375) MPV 10.1 fl (7.4-10.4) Immature Gran % (Auto) 0.3 % (0-0.5) Neut % (Auto) 65.2 % (45.5-73.1) Lymph % (Auto) 24.5 % (18.3-44.2) [place] % (Auto) 5.5 % (2.6-8.5) Eos % (Auto) 4.0 % (0-4.4) Baso % (Auto) 0.5 % (0.2-1.2) Lymph # (Auto) 1.47 K/mm3 (0.9-3.2) [place] # (Auto) 0.3 K/mm3 (0.1-0.6) Eos # (Auto) 0.2 K/mm3 (0-0.3) Baso # (Auto) 0.0 K/mm3 (0.0-0.1) Abs Immat Gran (auto) 0.02 K/mm3 (0.00-0.031) Absolute Neuts (auto) 3.9 K/mm3 (1.3-6.7) Absolute Nucleated RBC 0.000 K/mm3 (0.0-0.012) Nucleated RBC % 0.0 % (0.0-0.2) PT 16.3 H Seconds (11.1-14.7) INR 1.3 APTT 44.5 H Seconds (22.3-36.8) Puncture Site ABG pH ABG pCO2 ABG pO2 ABG PO2/FiO2 Ratio ABG HCO3 ABG O2 Saturation ABG O2 Content ABG Base Excess A-a Gradient Oxyhemoglobin Carboxyhemoglobin Methemoglobin Reduced Hemoglobin Total Hemoglobin O2 Delivery Device O2 Liters/Min Minute Volume Vent Rate Vent Mode FiO2 Tidal Volume PEEP Peak Inspir Pressure Pressure Support Sodium 134 L mmol/L (137-145) Potassium 3.4 mmol/L (3.4-5.0) Chloride 100 mmol/L (98-107) Carbon Dioxide 29 mmol/L (22-30) Anion Gap 5 mmol/L (4-12) BUN 16 mg/dL (9-20) Creatinine 0.54 L mg/dL (0.7-1.3) Estim Creat Clear Calc 193 ml/min Estimated GFR > 60 (59 - ) Glucose 122 H mg/dL (65-110) POC Capillary Glucose 108 H mg/dl 136 H mg/dl (65-105) (65-105) Calcium 8.0 L mg/dL (8.4-10.2) Phosphorus 3.1 mg/dL (2.5-4.5) Magnesium 1.7 mg/dL (1.6-2.3) Total Bilirubin 1.2 mg/dL (0.2-1.3) AST 27 U/L (17-59) ALT 23 U/L (6-50) Alkaline Phosphatase 93 U/L (38-126) Total Protein 6.2 L g/dL (6.3-8.2) Albumin 2.9 L g/dL (3.5-5.1) Vancomycin Trough 12/12/24 12/12/24 12/12/24 05:00 06:34 08:30 WBC RBC Hgb Hct MCV MCH MCHC RDW Plt Count MPV Immature Gran % (Auto) Neut % (Auto) Lymph % (Auto) [place] % (Auto) Eos % (Auto) Baso % (Auto) Lymph # (Auto) [place] # (Auto) Eos # (Auto) Baso # (Auto) Abs Immat Gran (auto) Absolute Neuts (auto) Absolute Nucleated RBC Nucleated RBC % PT INR APTT Puncture Site Right radial ABG pH 7.425 (7.350-7.450) ABG pCO2 45.0 mmHg (35.0-45.0) ABG pO2 65.5 L mmHg (80.0-100.0) ABG PO2/FiO2 Ratio 1.64 % ABG HCO3 28.9 H mEq/l (22.0-26.0) ABG O2 Saturation 93.2 L % (95.0-100.0) ABG O2 Content 17.8 %vol (16.0-22.0) ABG Base Excess 3.8 mEq/l (+/-2.0) A-a Gradient 168.0 mmHg Oxyhemoglobin 91.5 % THb (90.0-100.0) Carboxyhemoglobin 0.8 % THb (0-2.0) Methemoglobin 0.0 %THb (0-1.5) Reduced Hemoglobin 7.7 H %THb (0-5.0) Total Hemoglobin 13.8 g/dL (12.0-18.0) O2 Delivery Device Ventilator O2 Liters/Min Not Reportable Minute Volume Not Reportable Vent Rate 18 /MIN Vent Mode Cmv FiO2 40 % Tidal Volume 450 ml PEEP 12 cmH2O Peak Inspir Pressure Not Reportable Pressure Support Not Reportable Sodium Potassium Chloride Carbon Dioxide Anion Gap BUN Creatinine Estim Creat Clear Calc Estimated GFR Glucose POC Capillary Glucose 126 H mg/dl (65-105) Calcium Phosphorus Magnesium Total Bilirubin AST ALT Alkaline Phosphatase Total Protein Albumin Vancomycin Trough 18.4 ug/mL (10.0-20.0) 12/12/24 11:42 WBC RBC Hgb Hct MCV MCH MCHC RDW Plt Count MPV Immature Gran % (Auto) Neut % (Auto) Lymph % (Auto) [place] % (Auto) Eos % (Auto) Baso % (Auto) Lymph # (Auto) [place] # (Auto) Eos # (Auto) Baso # (Auto) Abs Immat Gran (auto) Absolute Neuts (auto) Absolute Nucleated RBC Nucleated RBC % PT INR APTT Puncture Site ABG pH ABG pCO2 ABG pO2 ABG PO2/FiO2 Ratio ABG HCO3 ABG O2 Saturation ABG O2 Content ABG Base Excess A-a Gradient Oxyhemoglobin Carboxyhemoglobin Methemoglobin Reduced Hemoglobin Total Hemoglobin O2 Delivery Device O2 Liters/Min Minute Volume Vent Rate Vent Mode FiO2 Tidal Volume PEEP Peak Inspir Pressure Pressure Support Sodium Potassium Chloride Carbon Dioxide Anion Gap BUN Creatinine Estim Creat Clear Calc Estimated GFR Glucose POC Capillary Glucose 127 H mg/dl (65-105) Calcium Phosphorus Magnesium Total Bilirubin AST ALT Alkaline Phosphatase Total Protein Albumin Vancomycin Trough Patient hx anesthesia problems: none Family hx anesthesia problems: none Results Review: All pre-operative results and documents have been reviewed as part of the pre-operative evaluation. [facility] Past Medical History Medical History Class 3 severe obesity with body mass index (BMI) of 60.0 to 69.9 in adult Chronic respiratory failure with hypoxia and hypercapnia On home O2 Eczema KATIE (obstructive sleep apnea) With prior sleep study in 2011 recommend a BiPAP of 25/20 Type 2 diabetes mellitus COPD (chronic obstructive pulmonary disease) HLD (hyperlipidemia) Essential hypertension Surgical History Surgical History History of back surgery Status post surgery of both feet Family History Family History Mother Hypertension Father Emphysema lung Social History Social History Smoking packs per day: 1.5 Smoking cigarettes per day: 30.0 Years smoked: 12 Smoking pack-years: 18.00 Smoking status: Former smoker Tobacco type: cigarettes Second hand tobacco smoke exposure: Yes Smoking end date: 03/16/14 Alcohol intake: never Substance use: never Substance use type: does not use Do You Feel Safe in your Home?: Yes Lack of Transportation: YES Lack of Food: Never True Current Housing: I Have Housing Concerned About Future Housing: No Difficulty Paying Gas/Electric Bills: No Difficulty Paying for Meds: No Currently Unemployed: No Education: Associate Degree Difficulty w/ Childcare or Family Care: No Spiritual care concerns: No Anes - Eval Final PreProcedure Day of Procedure 12/12/24 15:39 Patient weight: super morbidly obese Airway: Mallampati scale Neurological: alert and oriented (sedated. ) Last oral intake: >/= 8 hours ASA classification: IV Emergent: no Anesthetic plan: proceed Anesthesia type and monitoring: general ETT and standard monitoring Results Review: All pre-operative results and documents have been reviewed as part of the pre-operative evaluation. Critically ill pt from ICU, intubated, presents for trach. All notes reviewed and discussed w surgeon/[facility] staff. Informed Consent: The patient's anesthetic plan and its attendant risks and benefits were discussed with the patient/family/POA. Questions were solicited and answers provided to the satisfaction of the patient/family/POA.
--- NOTE | 2024-12-12 16:09 | P.PNGS_ITS ---
Progress Note: A&P Assessment and Plan (1) COPD (chronic obstructive pulmonary disease): Qualifiers: COPD type: COPD with acute exacerbation Qualified Code(s): J44.1 - Chronic obstructive pulmonary disease with (acute) exacerbation Code(s): J44.9 - Chronic obstructive pulmonary disease, unspecified Status: Acute (2) Acute hypoxic respiratory failure: Code(s): J96.01 - Acute respiratory failure with hypoxia Status: Acute Plan Unable to perform tracheostomy as a single surgeon. Dr. Veloz will come to evaluate the patient to see if it is feasible for 2 of us to perform. If not, I would recommend transfer to [facility] for tertiary level care. Ok to resume feeds and vte prophylaxis Subjective Subjective Date/Time Seen: 12/12/24 16:09 Objective Data Vital Signs Vital Signs: Vital Signs - 24 hr 12/11/24 17:00 12/11/24 17:33 12/11/24 18:00 Temperature 37.1 C Pulse Rate 70 71 70 Respiratory Rate 24 H 21 H Blood Pressure 140/80 Pulse Oximetry 97 99 Oxygen Delivery Mechanical Ventilation Fraction of Inspired Oxygen 50 12/11/24 18:00 12/11/24 18:00 12/11/24 18:00 Temperature 37.2 C Pulse Rate 70 70 70 Respiratory Rate 21 H 21 H Blood Pressure 136/72 Pulse Oximetry 98 Oxygen Delivery Fraction of Inspired Oxygen 12/11/24 19:00 12/11/24 19:49 12/11/24 19:53 Temperature 37.3 C Pulse Rate 69 68 69 Respiratory Rate 18 20 Blood Pressure 125/78 Pulse Oximetry 96 97 Oxygen Delivery Mechanical Ventilation Fraction of Inspired Oxygen 40 12/11/24 20:00 12/11/24 20:00 12/11/24 20:00 Temperature 37.3 C Pulse Rate 67 67 67 Respiratory Rate 20 22 H 20 Blood Pressure 138/68 Pulse Oximetry 95 Oxygen Delivery Fraction of Inspired Oxygen 12/11/24 20:00 12/11/24 20:00 12/11/24 20:10 Temperature Pulse Rate 70 64 Respiratory Rate 18 Blood Pressure Pulse Oximetry Oxygen Delivery Fraction of Inspired Oxygen 40 12/11/24 20:11 12/11/24 20:15 12/11/24 21:00 Temperature Pulse Rate 68 68 73 Respiratory Rate 22 H 22 H 20 Blood Pressure Pulse Oximetry Oxygen Delivery Fraction of Inspired Oxygen 12/11/24 21:00 12/11/24 21:09 12/11/24 22:00 Temperature 37.3 C Pulse Rate 73 73 73 Respiratory Rate 23 H 20 21 H Blood Pressure 123/65 Pulse Oximetry 92 Oxygen Delivery Fraction of Inspired Oxygen 12/11/24 22:00 12/11/24 22:00 12/11/24 22:00 Temperature 37.2 C Pulse Rate 73 73 73 Respiratory Rate 21 H 21 H Blood Pressure 128/66 Pulse Oximetry 92 Oxygen Delivery Fraction of Inspired Oxygen 12/11/24 23:00 12/11/24 23:37 12/12/24 00:00 Temperature 37.2 C Pulse Rate 69 71 68 Respiratory Rate 19 19 Blood Pressure 152/77 H Pulse Oximetry 92 97 Oxygen Delivery Mechanical Ventilation Fraction of Inspired Oxygen 40 12/12/24 00:00 12/12/24 00:00 12/12/24 00:00 Temperature 37.1 C Pulse Rate 68 66 Respiratory Rate 19 19 Blood Pressure 130/72 Pulse Oximetry 94 Oxygen Delivery Fraction of Inspired Oxygen 40 12/12/24 00:00 12/12/24 00:15 12/12/24 00:15 Temperature Pulse Rate 72 77 77 Respiratory Rate 22 H 22 H Blood Pressure Pulse Oximetry Oxygen Delivery Fraction of Inspired Oxygen 12/12/24 01:00 12/12/24 01:46 12/12/24 01:46 Temperature 37.0 C Pulse Rate 67 71 71 Respiratory Rate 18 18 18 Blood Pressure 126/107 H Pulse Oximetry 93 Oxygen Delivery Fraction of Inspired Oxygen 12/12/24 01:54 12/12/24 02:00 12/12/24 02:00 Temperature 36.5 C Pulse Rate 63 64 64 Respiratory Rate 18 18 Blood Pressure 112/70 Pulse Oximetry 90 Oxygen Delivery Fraction of Inspired Oxygen 12/12/24 02:00 12/12/24 02:00 12/12/24 03:00 Temperature 36.1 C L Pulse Rate 63 63 65 Respiratory Rate 18 18 18 Blood Pressure 148/72 H Pulse Oximetry 90 Oxygen Delivery Fraction of Inspired Oxygen 12/12/24 03:10 12/12/24 03:10 12/12/24 04:00 Temperature 36.1 C L Pulse Rate 74 74 66 Respiratory Rate 18 18 18 Blood Pressure 149/90 H Pulse Oximetry 95 Oxygen Delivery Fraction of Inspired Oxygen 12/12/24 04:00 12/12/24 04:00 12/12/24 04:00 Temperature Pulse Rate 64 64 Respiratory Rate 18 18 Blood Pressure Pulse Oximetry Oxygen Delivery Fraction of Inspired Oxygen 40 12/12/24 04:00 12/12/24 05:00 12/12/24 05:01 Temperature 35.9 C L Pulse Rate 66 56 L 61 Respiratory Rate 18 Blood Pressure 126/73 Pulse Oximetry 93 94 Oxygen Delivery Mechanical Ventilation Fraction of Inspired Oxygen 40 12/12/24 06:00 12/12/24 06:00 12/12/24 06:09 Temperature 35.7 C L Pulse Rate 57 L 57 L 63 Respiratory Rate 18 18 Blood Pressure 129/75 Pulse Oximetry 94 Oxygen Delivery Fraction of Inspired Oxygen 12/12/24 06:10 12/12/24 06:14 12/12/24 06:14 Temperature Pulse Rate 63 55 L 55 L Respiratory Rate 18 18 18 Blood Pressure Pulse Oximetry Oxygen Delivery Fraction of Inspired Oxygen 12/12/24 07:00 12/12/24 08:00 12/12/24 08:00 Temperature 35.7 C L Pulse Rate 57 L 61 61 Respiratory Rate 18 18 18 Blood Pressure 132/79 Pulse Oximetry 96 Oxygen Delivery Fraction of Inspired Oxygen 12/12/24 08:00 12/12/24 08:00 12/12/24 08:00 Temperature 35.8 C L Pulse Rate 62 Respiratory Rate 18 Blood Pressure 132/87 Pulse Oximetry 96 96 Oxygen Delivery Mechanical Ventilation Fraction of Inspired Oxygen 40 40 12/12/24 08:00 12/12/24 08:25 12/12/24 08:27 Temperature Pulse Rate 64 62 62 Respiratory Rate 19 Blood Pressure Pulse Oximetry 95 Oxygen Delivery Mechanical Ventilation Fraction of Inspired Oxygen 40 12/12/24 08:36 12/12/24 08:41 12/12/24 09:00 Temperature 35.9 C L Pulse Rate 67 67 72 Respiratory Rate 20 19 18 Blood Pressure 130/80 Pulse Oximetry 97 Oxygen Delivery Fraction of Inspired Oxygen 12/12/24 09:34 12/12/24 09:34 12/12/24 10:00 Temperature Pulse Rate 66 66 79 Respiratory Rate 20 20 18 Blood Pressure Pulse Oximetry Oxygen Delivery Fraction of Inspired Oxygen 12/12/24 10:00 12/12/24 10:00 12/12/24 10:00 Temperature 35.9 C L Pulse Rate 79 65 79 Respiratory Rate 18 18 Blood Pressure 123/71 Pulse Oximetry 95 Oxygen Delivery Fraction of Inspired Oxygen 12/12/24 10:38 12/12/24 11:00 12/12/24 11:00 Temperature 35.9 C L Pulse Rate 63 69 69 Respiratory Rate 20 20 Blood Pressure 130/83 Pulse Oximetry 96 97 Oxygen Delivery Mechanical Ventilation Fraction of Inspired Oxygen 40 12/12/24 11:03 12/12/24 11:03 12/12/24 11:37 Temperature Pulse Rate 64 64 62 Respiratory Rate 20 20 18 Blood Pressure Pulse Oximetry Oxygen Delivery Fraction of Inspired Oxygen 12/12/24 11:58 12/12/24 11:58 12/12/24 12:00 Temperature Pulse Rate 58 L 58 L Respiratory Rate 18 18 Blood Pressure Pulse Oximetry 96 Oxygen Delivery Mechanical Ventilation Fraction of Inspired Oxygen 40 12/12/24 12:00 12/12/24 12:00 12/12/24 12:00 Temperature 36.1 C L Pulse Rate 60 59 L Respiratory Rate 18 Blood Pressure 125/81 Pulse Oximetry 96 Oxygen Delivery Fraction of Inspired Oxygen 40 12/12/24 12:00 12/12/24 12:00 12/12/24 14:00 Temperature Pulse Rate 60 60 60 Respiratory Rate 18 18 18 Blood Pressure Pulse Oximetry Oxygen Delivery Fraction of Inspired Oxygen 12/12/24 14:00 12/12/24 14:01 12/12/24 14:02 Temperature Pulse Rate 60 54 L 54 L Respiratory Rate 18 18 Blood Pressure Pulse Oximetry 98 Oxygen Delivery Mechanical Ventilation Fraction of Inspired Oxygen 40 12/12/24 14:12 12/12/24 14:55 12/12/24 14:55 Temperature Pulse Rate 65 76 76 Respiratory Rate 18 18 18 Blood Pressure Pulse Oximetry Oxygen Delivery Fraction of Inspired Oxygen 12/12/24 14:55 12/12/24 14:55 12/12/24 15:59 Temperature Pulse Rate 76 76 71 Respiratory Rate 18 18 Blood Pressure Pulse Oximetry 94 Oxygen Delivery Mechanical Ventilation Fraction of Inspired Oxygen 40 Intake/Output Intake/Output: Intake & Output 12/09/24 12/10/24 12/11/24 12/12/24 23:59 23:59 23:59 23:59 Intake Total 4263.7 2957.9 2701.2 2192.2 Output Total 1725 1810 5175 1100 Balance 2538.7 1147.9 -2473.8 1092.2 Meds/Results Medications: Active Medications Generic Name Dose Route Start Last Admin Trade Name Freq PRN Reason Stop Dose Admin Acetaminophen 650 mg 11/26/24 14:25 12/07/24 04:00 Acetaminophen 325 Mg Tablet PO 650 mg Q6H PRN Administration Mild Pain (1-3) or Fever Apixaban 5 mg 11/26/24 21:00 12/07/24 21:07 Apixaban 5 Mg Tablet PO 5 mg On Hold: 12/08/24 07:15 Q12HR EDMUNDO Administration Bisacodyl 10 mg 12/09/24 09:00 12/12/24 08:21 Bisacodyl 10 Mg Suppository RECTAL 10 mg QAM EDMUNDO Administration Dextrose 12.5 gm 11/26/24 16:15 Dextrose 50% 25 Gm/50 Ml Syringe IV PUSH PRN PRN Hypoglycemia Protocol Glucagon 1 mg 11/26/24 16:15 Glucagon For Inj 1 Mg Vial IM PRN PRN Hypoglycemia Protocol Glucose 15 gm 11/26/24 16:15 Glucose Oral Gel 15 Gm Of Glucse In 37.5 Gm Tube PO PRN PRN Hypoglycemia Protocol Heparin Sodium (Porcine) 10,000 units 12/08/24 07:12 Heparin Sodium 5,000 Units/Ml Vial IV PUSH PRN PRN aPTT less than 55 seconds Heparin Sodium (Porcine) 5,000 units 12/08/24 07:12 12/10/24 01:46 Heparin Sodium 5,000 Units/Ml Vial IV PUSH 5,000 units PRN PRN Administration aPTT 55 - 70 seconds Dextrose 1,000 mls @ 100 mls/hr 11/26/24 16:15 Dextrose 5% 1,000 Ml IVPB PRN PRN Hypoglycemia Protocol Dexmedetomidine HCl 400 mcg in 100 mls @ 20 mls/hr 12/06/24 12:25 12/12/24 14:55 Precedex 400 Mcg/100 Ml IV CONT 0.4 mcg/kg/hr .Q5H EDMUNDO 20 mls/hr Protocol Administration 0.4 MCG/KG/HR Heparin Sodium/Dextrose 25,000 units in 250 mls @ 0 mls/hr 12/08/24 07:15 12/12/24 04:00 Heparin Sodium/D5w 100 Units/Ml IV CONT 0 units/hr On Hold: 12/12/24 04:00 .Q0M EDMUNDO 0 mls/hr Comment: Hold Heparin gtt. for Protocol Titration procedures. Propofol 100 mls @ 30 mls/hr 12/08/24 16:20 12/12/24 14:55 Diprivan IV CONT 25 mcg/kg/min .Q3H20M EDMUNDO 30 mls/hr Protocol Administration 25 MCG/KG/MIN Meropenem 1 gm/ Sodium 100 mls @ 200 mls/hr 12/09/24 14:00 12/12/24 06:28 Chloride IVPB 12/16/24 06:29 200 mls/hr Q8HR EDMUNDO Administration Vancomycin HCl 2,000 mg in 500 mls @ 250 mls/hr 12/10/24 22:00 12/12/24 12:30 Vancomycin 2,000 Mg/Ns 500 Ml IVPB 12/15/24 23:59 Infused Q12H EDMUNDO Infusion Insulin Aspart 3 - 6 units 11/28/24 06:50 12/12/24 11:46 Insulin Aspart (*Bkc) 100 Units/Ml SUB-Q Not Given Q6HR [facility] Protocol Insulin Glargine 25 units 12/01/24 09:00 12/07/24 08:34 Insulin Glargine (*Bkc) 100 Units/Ml SUB-Q 25 units On Hold: 12/08/24 07:18 QAM [facility] Administration Ipratropium [place] 0.5 mg 11/29/24 08:00 12/12/24 13:56 Ipratropium Br 0.02% Inh Soln 0.5 Mg/2.5 Ml Vial INHALATION 0.5 mg Q6HRT [facility] Administration Levalbuterol HCl 1.25 mg 11/29/24 20:00 12/12/24 13:56 Levalbuterol Neb 1.25 Mg/3 Ml INHALATION 1.25 mg Q6HRT [facility] Administration Linaclotide 145 mcg 12/10/24 06:30 12/12/24 07:48 Linaclotide 145 Mcg Capsule PO Not Given DAILY@0630 [facility] Multi-Ingred Cream/Lotion/Oil/Oint 1 applic 11/28/24 09:00 12/12/24 08:22 Mineral Oil/White Petrolatum Ointment EACH EYE 1 applic Q12HR EDMUNDO Administration Pantoprazole Sodium 40 mg 11/29/24 09:00 12/12/24 08:21 Pantoprazole Sodium Iv 40 Mg Vial IV PUSH 40 mg QAM EDMUNDO Administration Polyethylene Glycol 17 gm 12/08/24 13:35 12/12/24 15:24 Polyethylene Glycol 3350 17 Gm Powd.Pack PO Not Given Q8HR EDMUNDO Senna/Docusate Sodium 1 tab 12/06/24 21:00 12/07/24 21:07 Senna/Docusate Sodium Tablet PO 1 tab On Hold: 12/08/24 07:17 HS EDMUNDO Administration Sertraline HCl 50 mg 11/27/24 09:00 11/28/24 12:06 Sertraline Hcl 50 Mg Tablet PO 50 mg On Hold: 11/29/24 08:16 DAILY EDMUNDO Administration Sodium Chloride 10 ml 11/28/24 14:00 12/12/24 06:17 Central Line Flush IV PUSH 10 ml Q8HR EDMUNDO Administration Sodium Chloride 20 ml 11/28/24 11:53 12/03/24 05:31 Central Line Flush IV PUSH 20 ml PRN PRN Administration after blood draws Radiology Results: ITS Impressions Venous Doppler Study 12/07/24 13:02 IMPRESSION: 1: No lower extremity deep venous thrombosis. Chest X-Ray 12/12/24 09:33 IMPRESSION: 1. Persistent complete left lower lobe atelectasis. Aspiration and/or mucous plug suspected. 2. Persistent left pleural effusion. 3. Persistent right basilar atelectasis and/or airspace disease. Labs Labs: Laboratory Results - last 24 hr 12/11/24 12/12/24 12/12/24 17:10 00:23 04:37 WBC 6.0 RBC 4.66 Hgb 12.6 L Hct 41.9 L MCV 89.9 MCH 27.0 MCHC 30.1 L RDW 16.1 H Plt Count 144 L MPV 10.1 Immature Gran % (Auto) 0.3 Neut % (Auto) 65.2 Lymph % (Auto) 24.5 [place] % (Auto) 5.5 Eos % (Auto) 4.0 Baso % (Auto) 0.5 Lymph # (Auto) 1.47 [place] # (Auto) 0.3 Eos # (Auto) 0.2 Baso # (Auto) 0.0 Abs Immat Gran (auto) 0.02 Absolute Neuts (auto) 3.9 Absolute Nucleated RBC 0.000 Nucleated RBC % 0.0 PT 16.3 H INR 1.3 APTT 44.5 H Puncture Site ABG pH ABG pCO2 ABG pO2 ABG PO2/FiO2 Ratio ABG HCO3 ABG O2 Saturation ABG O2 Content ABG Base Excess A-a Gradient Oxyhemoglobin Carboxyhemoglobin Methemoglobin Reduced Hemoglobin Total Hemoglobin O2 Delivery Device O2 Liters/Min Minute Volume Vent Rate Vent Mode FiO2 Tidal Volume PEEP Peak Inspir Pressure Pressure Support Sodium 134 L Potassium 3.4 Chloride 100 Carbon Dioxide 29 Anion Gap 5 BUN 16 Creatinine 0.54 L Estim Creat Clear Calc 193 Estimated GFR > 60 Glucose 122 H POC Capillary Glucose 108 H 136 H Calcium 8.0 L Phosphorus 3.1 Magnesium 1.7 Total Bilirubin 1.2 AST 27 ALT 23 Alkaline Phosphatase 93 Total Protein 6.2 L Albumin 2.9 L Vancomycin Trough 12/12/24 12/12/24 12/12/24 05:00 06:34 08:30 WBC RBC Hgb Hct MCV MCH MCHC RDW Plt Count MPV Immature Gran % (Auto) Neut % (Auto) Lymph % (Auto) [place] % (Auto) Eos % (Auto) Baso % (Auto) Lymph # (Auto) [place] # (Auto) Eos # (Auto) Baso # (Auto) Abs Immat Gran (auto) Absolute Neuts (auto) Absolute Nucleated RBC Nucleated RBC % PT INR APTT Puncture Site Right radial ABG pH 7.425 ABG pCO2 45.0 ABG pO2 65.5 L ABG PO2/FiO2 Ratio 1.64 ABG HCO3 28.9 H ABG O2 Saturation 93.2 L ABG O2 Content 17.8 ABG Base Excess 3.8 A-a Gradient 168.0 Oxyhemoglobin 91.5 Carboxyhemoglobin 0.8 Methemoglobin 0.0 Reduced Hemoglobin 7.7 H Total Hemoglobin 13.8 O2 Delivery Device Ventilator O2 Liters/Min Not Reportable Minute Volume Not Reportable Vent Rate 18 Vent Mode Cmv FiO2 40 Tidal Volume 450 PEEP 12 Peak Inspir Pressure Not Reportable Pressure Support Not Reportable Sodium Potassium Chloride Carbon Dioxide Anion Gap BUN Creatinine Estim Creat Clear Calc Estimated GFR Glucose POC Capillary Glucose 126 H Calcium Phosphorus Magnesium Total Bilirubin AST ALT Alkaline Phosphatase Total Protein Albumin Vancomycin Trough 18.4 12/12/24 11:42 WBC RBC Hgb Hct MCV MCH MCHC RDW Plt Count MPV Immature Gran % (Auto) Neut % (Auto) Lymph % (Auto) [place] % (Auto) Eos % (Auto) Baso % (Auto) Lymph # (Auto) [place] # (Auto) Eos # (Auto) Baso # (Auto) Abs Immat Gran (auto) Absolute Neuts (auto) Absolute Nucleated RBC Nucleated RBC % PT INR APTT Puncture Site ABG pH ABG pCO2 ABG pO2 ABG PO2/FiO2 Ratio ABG HCO3 ABG O2 Saturation ABG O2 Content ABG Base Excess A-a Gradient Oxyhemoglobin Carboxyhemoglobin Methemoglobin Reduced Hemoglobin Total Hemoglobin O2 Delivery Device O2 Liters/Min Minute Volume Vent Rate Vent Mode FiO2 Tidal Volume PEEP Peak Inspir Pressure Pressure Support Sodium Potassium Chloride Carbon Dioxide Anion Gap BUN Creatinine Estim Creat Clear Calc Estimated GFR Glucose POC Capillary Glucose 127 H Calcium Phosphorus Magnesium Total Bilirubin AST ALT Alkaline Phosphatase Total Protein Albumin Vancomycin Trough
[2024-12-12] MEDS: HEPARIN SOD/D5W 100 UNITS/ML 25,000 UNITS/250 ML BAG 21 UNITS IV CONT (16:19)
[2024-12-12 22:25] LABS: Partial Thromboplastin Time 67.1 Seconds (22.3-36.8)
[2024-12-13] VITALS (55 sets, daily range): BP systolic 87–145; BP diastolic 49–95; PULSE 51–123; RESP 18–26; TEMP 36.5–37.3; O2SAT 95–100
[2024-12-13] MEDS: dexmedeTOMIDine 400 MCG/100 ML 400 MCG/100 ML BAG 20 MCG IV CONT ×2 (01:12→06:15)
[2024-12-13] MEDS: IPRATROPIUM BR 0.02% INH SOLN 0.5 MG/2.5 ML VIAL INHALATION ×4 (02:12→20:53)
[2024-12-13] MEDS: PROPOFOL IV EMULSION 100 ML 30 MG IV CONT ×2 (02:58→06:17)
[2024-12-13] MEDS: HEPARIN SOD/D5W 100 UNITS/ML 25,000 UNITS/250 ML BAG 24 UNITS IV CONT (03:02)
[2024-12-13 04:55] LABS: Hematocrit 42.6 % (42.0-52.0); Hemoglobin 12.8 g/dL (14.0-18.0); Immature Granulocyte Percent A 0.3 % (0-0.5); Lymphocytes Absolute Auto 1.37 K/mm3 (0.9-3.2); Mean Corpuscular HGB Conc 30.0 g/dl (32-36); Mean Corpuscular Hemoglobin 27.1 pg (26-34); Mean Corpuscular Volume 90.1 fl (80-100); Nucleated Red Blood Cells Absolute Auto 0.000 K/mm3 (0.0-0.012); Nucleated Red Blood Cells Perc 0.0 % (0.0-0.2); Platelet Count Result 159 k/mm3 (150-375); Red Blood Count 4.73 M/mm3 (4.6-6.20); White Blood Count 6.7 K/mm3 (4.5-10.0)
[2024-12-13 05:12] LABS: Partial Thromboplastin Time 119.9 Seconds (22.3-36.8)
[2024-12-13 05:27] LABS: Alanine Aminotransferase 25 U/L (6-50); Albumin Level 2.8 g/dL (3.5-5.1); Alkaline Phosphatase 98 U/L (38-126); Anion Gap 4 mmol/L (4-12); Aspartate Amino Transferase 30 U/L (17-59); Bilirubin,Total 0.8 mg/dL (0.2-1.3); Blood Urea Nitrogen 13 mg/dL (9-20); Calcium 8.1 mg/dL (8.4-10.2); Carbon Dioxide 30 mmol/L (22-30); Chloride 101 mmol/L (98-107); Estimated CRCL calculation 190 ml/min; Estimated Glomerular Filt Rate > 60; Glucose 141 mg/dL (65-110); Magnesium 1.7 mg/dL (1.6-2.3); Potassium 3.9 mmol/L (3.4-5.0); Sodium 135 mmol/L (137-145); Total Protein 6.3 g/dL (6.3-8.2); Triglycerides 123 mg/dL (<150)
[2024-12-13 05:29] LABS: Alveolar/Arterial O2 Gradient 136.3 mmHg; Carboxyhemoglobin 0.8 % THb (0-2.0); Fractional Inspired Oxygen 40 %; HCO3 ABG 27.6 mEq/l (22.0-26.0); Methemoglobin ABG 0.0 %THb (0-1.5); Oxygen Content ABG 19.3 %vol (16.0-22.0); Oxygen Saturation ABG 97.4 % (95.0-100.0); PCO2 ABG 44.8 mmHg (35.0-45.0); PO2 ABG 97.4 mmHg (80.0-100.0); PO2 FiO2 Ratio Arterial Blood 2.43 %; Reduced Hemoglobin 2.4 %THb (0-5.0)
[2024-12-13 05:31] LABS: Arterial Blood Gas Tidal Volume 450 ml; Arterial Blood Gas Ventilator rate 18 /MIN; Modified Allen's Test Pass; Site Drawn RIGHT RADIAL
[2024-12-13] MEDS: MEROPENEM 1 GM in SODIUM CHLORIDE 0.9% IV 100 ML 200 ML IVPB (06:14)
[2024-12-13] MEDS: LINACLOTIDE 145 MCG CAPSULE PO (06:15)
[2024-12-13] MEDS: CENTRAL LINE FLUSH 10 ML IV PUSH ×3 (06:17→22:33)
[2024-12-13] MEDS: PANTOPRAZOLE SODIUM IV 40 MG VIAL IV PUSH (09:33)
[2024-12-13] MEDS: MAGNESIUM SULF 2 GM/WATER 50ML 2 GM/50 ML BAG IVPB (09:34)
[2024-12-13] MEDS: PROPOFOL IV EMULSION 100 ML 36 MG IV CONT (09:43)
[2024-12-13] MEDS: VANCOMYCIN 2,000 MG/NS 500 ML 2,000 MG/500 ML BAG 250 MG IVPB (09:44)
--- NOTE | 2024-12-13 09:44 | WPDINTPN ---
Progress Note: A&P Assessment and Plan (1) Fever: Code(s): R50.9 - Fever, unspecified Status: Acute Assessment and Plan: 12/09 and 12/09: Continues to have fevers, currently on levofloxacin for Pseudomonas pneumonia 12/08: Metronidazole due to large bowel obstruction and to cover anaerobes -12/07: lower extremity venous Dopplers are negative -12/07: Urine culture negative urine culture -12/07: Blood culture -preliminary are negative x2 -12/09: Sputum culture growing Staph aureus -12/09: chest x-ray shows atelectasis, increased peep to 12 to expand lower lobes of the lungs -12/09; ID consultation and patient was started on meropenem and vancomycin . Discontinued levofloxacin and metronidazole Afebrile overnight. WBC normal. (2) Acute on chronic respiratory failure with hypoxia and hypercapnia: Code(s): J96.21 - Acute and chronic respiratory failure with hypoxia; J96.22 - Acute and chronic respiratory failure with hypercapnia Status: Acute Assessment and Plan: Acute on chronic respiratory failure secondary to multifactorial combination of COPD, obesity hypoventilation syndrome, left-sided pneumonia, pulmonary edema, atelectasis 11/26: Patient was admitted for increasing/worsening dyspnea 1 day prior to admission. Patient was in the intermediate Unit, evaluated by pulmonology, has been noncompliant with his AVAPS/BiPAP. 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 Also was possibly delirious as he pulled out his IV lines and BiPAP mask. -was on propofol, dropped his blood pressures in the 40s systolic, propofol infusion were discontinued currently sedated with Versed and fentanyl On admission: Chest x-ray shows a consolidation versus atelectasis versus combination of 2 on the left side. Patient is a too big for CT scanner hence unable to evaluate 11/29 bronchoscopy was done. Minimal amount of secretions were seen. -status post Pulmozyme, Mucomyst nebs and schedule chest PT -off Solu-Medrol -11/29: Sputum culture is growing Pseudomonas. Nasal MRSA screen was positive. Patient was on vancomycin earlier, which was discontinued -12/07: Tolerated ASV almost totally evening in the knee got tired, tachycardic, and was placed back on CMV mode of ventilation -Currently on CMV mode of ventilation, 40% FiO2 and peep of 12. 12/09: Discussed with daughter, JOSHUA Bliss, updated her with patient's condition and plan of care. I explained to her in details regarding the need for tracheostomy and PEG tube placement, also discussed with the patient, both of them are agreeable. Continue diuretic 12/12/2024 tracheostomy procedure was unsuccessful. Patient evaluated by 2 ENT doctors here at [place]. Dr. Feliz recommends transfer to tertiary facility. Spoke to [facility] transfer [place] for transfer for tracheostomy. Waiting for call back from medical ICU there Continue vancomycin and meropenem as above Continue bronchodilators Continue Lasix (3) COPD exacerbation: Code(s): J44.1 - Chronic obstructive pulmonary disease with (acute) exacerbation Status: Acute Assessment and Plan: See above (4) Pneumonia: Code(s): J18.9 - Pneumonia, unspecified organism Status: Acute Assessment and Plan: See above (5) Hypotension: Code(s): I95.9 - Hypotension, unspecified Status: Acute Assessment and Plan: Patient dropped his blood pressure is likely related to propofol infuse and positive-pressure ventilation -on admission to the ICU required phenylephrine push and Levophed infusion Now off pressors -hemodynamically stable (6) Atrial fibrillation with RVR: Code(s): I48.91 - Unspecified atrial fibrillation Status: Acute Assessment and Plan: Patient has a history of AFib with RVR, currently rate controlled but remains in atrial fibrillation -continue Eliquis -given that he has this ileus/small-bowel obstruction, will hold Eliquis and continue heparin infusion (12/08) (7) Type 2 diabetes mellitus: Qualifiers: Diabetes mellitus complication status: without complication Diabetes mellitus ocean [employer] intermediary insulin use: without mcfp use Qualified Code(s): E11.9 - Type 2 diabetes mellitus without complications Code(s): E11.9 - Type 2 diabetes mellitus without complications Status: Acute Assessment and Plan: Accu-Cheks and sliding scale insulin Resume Lantus (8) Essential hypertension: Code(s): I10 - Essential (primary) hypertension Status: Acute Assessment and Plan: Hold antihypertensive medications at this time (9) KATIE (obstructive sleep apnea): Code(s): G47.33 - Obstructive sleep apnea (adult) (pediatric) Status: Acute Assessment and Plan: Non compliant with his CPAP/AVAPS -currently intubated (10) Edema of abdominal wall: Code(s): R60.0 - Localized edema Status: Acute Assessment and Plan: Edema of the abdominal wall on the left side likely related to dependent edema as patient fevers to lay on that side Continue Lasix (11) Electrolyte abnormality: Code(s): E87.8 - Other disorders of electrolyte and fluid balance, not elsewhere classified Status: Acute Assessment and Plan: Replace magnesium (12) Ileus: Code(s): K56.7 - Ileus, unspecified Status: Acute Assessment and Plan: 12/07: Patient has not had any bowel moved, obtained a obstructive series which showed Ileus versus early large bowel obstruction -OG tube to suction -appreciate surgery evaluation and recommendations, no further intervention from surgery, signing off -appreciate GI evaluation and recommendations, started on Dulcolax suppository, MiraLax and Linzess per GI -12/10: patient started to have bowel movements Plan DVT prophylaxis: Apixaban held due to Ileus/SBO, started on heparin infusion currently heparin infusion on hold for tracheostomy and PEG tube Stress ulcer prophylaxis: Protonix Nutrition: Continue tube feeds Code Status: Full code Will try to transfer patient to [facility] for tracheostomy. Critical Care Time Spent: 30 minutes Due to a high probability of clinically significant, life threatening deterioration, the patient required my highest level of preparedness to intervene emergently and I personally spent this critical care time directly and personally managing the patient. This critical care time included obtaining a history; examining the patient; pulse oximetry; ordering and review of studies; arranging urgent treatment with development of a management plan; evaluation of patient's response to treatment; frequent reassessment; and discussions with other providers. It was exclusive of separately billable procedures and treating other patients and teaching time. Please see Assessment and Plan section and the rest of the note for further information on patient assessment and treatment This dictation may have been done utilizing a voice recognition system. Attempts have been made to correct errors. However, there may be uncorrected grammatical, spelling, and recognitions errors present. Subjective Date/time seen: 12/13/24 Overnight events reviewed. Afebrile Continues to be on mechanical ventilation 40% FiO2 and 12 of PEEP On heparin infusion Continues to be sedated with propofol and Precedex Other Vitals acceptable Tracheostomy procedure was unsuccessful Interval history: Reason for consult: Acute hypoxic and hypercapnic respiratory failure since, hypotension/shock, pneumonia, COPD exacerbation, noncompliance 11/28 intubation 11/29 bronchoscopy 12/09: ETT was exchanged over bougie as it kept popping out from the connecter/adapter 12/12: PEG tube placement Review of Systems Review of Systems: ROS unobtainable: Yes unobtainable due to endotracheal tube, unobtainable due to medical condition and unobtainable due to mental status Exam Narrative: General: Significantly obese gentleman, currently intubated, sedated in no acute distress HEENT:? Pupils equal and reactive, sclera is clear, ETT in place Neck:? Thick and short neck Respiratory:? Decreased air entry bilaterally, no wheezing. Breath sounds are improved on the left side but still less than as compared to right side Chest: Left breast is larger than the right, induration, erythema and warmth has improved Cardiac:? Distant heart sounds, irregularly irregular, rate control Abdomen:? Morbidly obese, indurated and firm on the left side with pitting edema, right side is softer with less edema, according the daughter patient prefers to lay on the left side, causing possible dependent edema and swelling. Hypoactive bowel sounds, tympanic on percussion Extremities:? Edema is improving in bilateral lower extremities, palpable pedal pulses Neuro:? Patient is intubated, on propofol and Precedex infusion patient is calm, awake, nods to questions follows simple commands in lower extremities, moves all extremities spontaneously Skin:? Bruising noted on upper extremities, torso, chronic venous stasis changes on bilateral lower extremity Psych:? Unable to assess at this time Objective Data Vital Signs Vital Signs: Vital Signs - 24 hr 12/12/24 10:12/12/24 10:00 12/12/24 10:00 Temperature 35.9 C L Pulse Rate 79 79 65 Respiratory Rate 18 18 18 Blood Pressure 123/71 Pulse Oximetry 95 Oxygen Delivery Fraction of Inspired Oxygen 12/12/24 10:00 12/12/24 10:38 12/12/24 11:00 Temperature 35.9 C L Pulse Rate 79 63 69 Respiratory Rate 20 Blood Pressure 130/83 Pulse Oximetry 96 97 Oxygen Delivery Mechanical Ventilation Fraction of Inspired Oxygen 40 12/12/24 11:00 12/12/24 11:03 12/12/24 11:03 Temperature Pulse Rate 69 64 64 Respiratory Rate 20 20 20 Blood Pressure Pulse Oximetry Oxygen Delivery Fraction of Inspired Oxygen 12/12/24 11:37 12/12/24 11:58 12/12/24 11:58 Temperature Pulse Rate 62 58 L 58 L Respiratory Rate 18 18 18 Blood Pressure Pulse Oximetry Oxygen Delivery Fraction of Inspired Oxygen 12/12/24 12:00 12/12/24 12:00 12/12/24 12:00 Temperature 36.1 C L Pulse Rate 60 Respiratory Rate 18 Blood Pressure 125/81 Pulse Oximetry 96 96 Oxygen Delivery Mechanical Ventilation Fraction of Inspired Oxygen 40 40 12/12/24 12:00 12/12/24 12:00 12/12/24 12:00 Temperature Pulse Rate 59 L 60 60 Respiratory Rate 18 18 Blood Pressure Pulse Oximetry Oxygen Delivery Fraction of Inspired Oxygen 12/12/24 13:00 12/12/24 14:00 12/12/24 14:00 Temperature 36.2 C L Pulse Rate 58 L 60 60 Respiratory Rate 18 18 18 Blood Pressure 133/82 Pulse Oximetry 97 Oxygen Delivery Fraction of Inspired Oxygen 12/12/24 14:00 12/12/24 14:00 12/12/24 14:01 Temperature 36.2 C L Pulse Rate 60 60 54 L Respiratory Rate 18 Blood Pressure 131/82 Pulse Oximetry 97 98 Oxygen Delivery Mechanical Ventilation Fraction of Inspired Oxygen 40 12/12/24 14:02 12/12/24 14:12 12/12/24 14:55 Temperature Pulse Rate 54 L 65 76 Respiratory Rate 18 18 18 Blood Pressure Pulse Oximetry Oxygen Delivery Fraction of Inspired Oxygen 12/12/24 14:55 12/12/24 14:55 12/12/24 14:55 Temperature Pulse Rate 76 76 76 Respiratory Rate 18 18 18 Blood Pressure Pulse Oximetry Oxygen Delivery Fraction of Inspired Oxygen 12/12/24 15:00 12/12/24 15:59 12/12/24 16:00 Temperature 36.2 C L Pulse Rate 60 71 71 Respiratory Rate 18 18 Blood Pressure 125/77 Pulse Oximetry 97 94 Oxygen Delivery Mechanical Ventilation Fraction of Inspired Oxygen 40 12/12/24 16:00 12/12/24 16:00 12/12/24 16:00 Temperature 36.3 C L Pulse Rate 71 70 66 Respiratory Rate 18 18 Blood Pressure 116/79 Pulse Oximetry 96 Oxygen Delivery Fraction of Inspired Oxygen 12/12/24 16:00 12/12/24 16:00 12/12/24 17:00 Temperature 36.2 C L Pulse Rate 63 Respiratory Rate 18 Blood Pressure 145/81 H Pulse Oximetry 96 96 Oxygen Delivery Mechanical Ventilation Fraction of Inspired Oxygen 40 40 12/12/24 17:43 12/12/24 17:46 12/12/24 17:46 Temperature Pulse Rate 62 65 65 Respiratory Rate 18 18 Blood Pressure Pulse Oximetry 96 Oxygen Delivery Mechanical Ventilation Fraction of Inspired Oxygen 40 12/12/24 18:00 12/12/24 18:00 12/12/24 18:00 Temperature 36.2 C L Pulse Rate 62 62 62 Respiratory Rate 18 18 Blood Pressure 136/76 Pulse Oximetry 96 Oxygen Delivery Fraction of Inspired Oxygen 12/12/24 18:00 12/12/24 19:00 12/12/24 19:55 Temperature 36.2 C L Pulse Rate 62 52 L 60 Respiratory Rate 18 18 20 Blood Pressure 127/81 Pulse Oximetry 96 Oxygen Delivery Fraction of Inspired Oxygen 12/12/24 20:00 12/12/24 20:00 12/12/24 20:00 Temperature Pulse Rate 60 60 Respiratory Rate 20 18 Blood Pressure Pulse Oximetry 97 Oxygen Delivery Mechanical Ventilation Fraction of Inspired Oxygen 40 12/12/24 20:00 12/12/24 20:00 12/12/24 20:00 Temperature 36.3 C L Pulse Rate 59 L 63 Respiratory Rate 18 Blood Pressure 132/79 Pulse Oximetry 97 Oxygen Delivery Fraction of Inspired Oxygen 40 12/12/24 20:33 12/12/24 20:33 12/12/24 20:38 Temperature Pulse Rate 64 64 59 L Respiratory Rate 18 18 20 Blood Pressure Pulse Oximetry Oxygen Delivery Fraction of Inspired Oxygen 12/12/24 20:45 12/12/24 20:49 12/12/24 21:00 Temperature 36.4 C L Pulse Rate 59 L 59 L 65 Respiratory Rate 20 18 Blood Pressure 138/75 Pulse Oximetry 97 97 Oxygen Delivery Mechanical Ventilation Fraction of Inspired Oxygen 40 12/12/24 22:00 12/12/24 22:00 12/12/24 22:00 Temperature 36.4 C L Pulse Rate 69 69 67 Respiratory Rate 19 19 18 Blood Pressure 129/85 Pulse Oximetry 96 Oxygen Delivery Fraction of Inspired Oxygen 12/12/24 22:00 12/12/24 23:00 12/12/24 23:18 Temperature 36.4 C Pulse Rate 67 64 66 Respiratory Rate 18 Blood Pressure 110/68 Pulse Oximetry 96 95 Oxygen Delivery Mechanical Ventilation Fraction of Inspired Oxygen 40 12/12/24 23:41 12/12/24 23:41 12/13/24 00:00 Temperature Pulse Rate 60 60 60 Respiratory Rate 18 18 18 Blood Pressure Pulse Oximetry Oxygen Delivery Fraction of Inspired Oxygen 12/13/24 00:00 12/13/24 00:00 12/13/24 00:00 Temperature 36.5 C Pulse Rate 60 60 Respiratory Rate 18 18 Blood Pressure 142/76 H Pulse Oximetry 97 Oxygen Delivery Fraction of Inspired Oxygen 40 12/13/24 00:00 12/13/24 00:00 12/13/24 01:00 Temperature 36.5 C Pulse Rate 62 61 Respiratory Rate 18 Blood Pressure 135/70 Pulse Oximetry 98 97 Oxygen Delivery Mechanical Ventilation Fraction of Inspired Oxygen 40 12/13/24 01:12 12/13/24 01:12 12/13/24 02:00 Temperature Pulse Rate 59 L 59 L 51 L Respiratory Rate 18 18 Blood Pressure Pulse Oximetry Oxygen Delivery Fraction of Inspired Oxygen 12/13/24 02:00 12/13/24 02:00 12/13/24 02:00 Temperature 36.5 C Pulse Rate 56 L 56 L 56 L Respiratory Rate 18 18 18 Blood Pressure 135/89 Pulse Oximetry 97 Oxygen Delivery Fraction of Inspired Oxygen 12/13/24 02:12 12/13/24 02:15 12/13/24 02:19 Temperature Pulse Rate 51 L 51 L 51 L Respiratory Rate 20 20 Blood Pressure Pulse Oximetry 95 Oxygen Delivery Mechanical Ventilation Fraction of Inspired Oxygen 40 12/13/24 02:58 12/13/24 02:58 12/13/24 03:00 Temperature 36.6 C Pulse Rate 67 67 67 Respiratory Rate 20 20 18 Blood Pressure 135/60 Pulse Oximetry 97 Oxygen Delivery Fraction of Inspired Oxygen 12/13/24 04:00 12/13/24 04:00 12/13/24 04:00 Temperature Pulse Rate 65 65 67 Respiratory Rate 18 18 18 Blood Pressure 114/68 Pulse Oximetry 95 Oxygen Delivery Fraction of Inspired Oxygen 12/13/24 04:00 12/13/24 04:00 12/13/24 04:00 Temperature Pulse Rate 65 Respiratory Rate Blood Pressure Pulse Oximetry 96 Oxygen Delivery Mechanical Ventilation Fraction of Inspired Oxygen 40 40 12/13/24 05:00 12/13/24 05:19 12/13/24 06:00 Temperature 36.9 C Pulse Rate 61 61 66 Respiratory Rate 18 18 Blood Pressure 129/85 Pulse Oximetry 98 98 Oxygen Delivery Mechanical Ventilation Fraction of Inspired Oxygen 40 12/13/24 06:00 12/13/24 06:00 12/13/24 06:00 Temperature 36.9 C Pulse Rate 66 62 62 Respiratory Rate 18 19 Blood Pressure 124/83 Pulse Oximetry 99 Oxygen Delivery Fraction of Inspired Oxygen 12/13/24 06:12 12/13/24 06:15 12/13/24 06:17 Temperature Pulse Rate 61 61 64 Respiratory Rate 20 20 19 Blood Pressure Pulse Oximetry Oxygen Delivery Fraction of Inspired Oxygen 12/13/24 06:17 12/13/24 07:58 12/13/24 07:59 Temperature Pulse Rate 64 55 L 55 L Respiratory Rate 19 19 Blood Pressure Pulse Oximetry 98 Oxygen Delivery Mechanical Ventilation Fraction of Inspired Oxygen 40 12/13/24 08:05 Temperature Pulse Rate 66 Respiratory Rate 20 Blood Pressure Pulse Oximetry Oxygen Delivery Fraction of Inspired Oxygen Intake/Output Intake/Output: Intake & Output 12/10/24 12/11/24 12/12/24 12/13/24 23:59 23:59 23:59 23:59 Intake Total 2957.9 2701.2 3029.6 1745.6 Output Total 1810 5175 2000 725 Balance 1147.9 -2473.8 1029.6 1020.6 Meds/Results Medications: Active Medications Generic Name Dose Route Start Last Admin Trade Name Freq PRN Reason Stop Dose Admin Acetaminophen 650 mg 11/26/24 14:25 12/07/24 04:00 Acetaminophen 325 Mg Tablet PO 650 mg Q6H PRN Administration Mild Pain (1-3) or Fever Apixaban 5 mg 11/26/24 21:00 12/07/24 21:07 Apixaban 5 Mg Tablet PO 5 mg On Hold: 12/08/24 07:15 Q12HR EDMUNDO Administration Bisacodyl 10 mg 12/09/24 09:00 12/13/24 09:34 Bisacodyl 10 Mg Suppository RECTAL Not Given QAM EDMUNDO Dextrose 12.5 gm 11/26/24 16:15 Dextrose 50% 25 Gm/50 Ml Syringe IV PUSH PRN PRN Hypoglycemia Protocol Fentanyl Citrate 50 mcg 12/13/24 07:43 Fentanyl Citrate Inj (*Crx) 100 Mcg/2 Ml Vial IV PUSH Q1H PRN Pain while on vent Glucagon 1 mg 11/26/24 16:15 Glucagon For Inj 1 Mg Vial IM PRN PRN Hypoglycemia Protocol Glucose 15 gm 11/26/24 16:15 Glucose Oral Gel 15 Gm Of Glucse In 37.5 Gm Tube PO PRN PRN Hypoglycemia Protocol Heparin Sodium (Porcine) 10,000 units 12/08/24 07:12 Heparin Sodium 5,000 Units/Ml Vial IV PUSH PRN PRN aPTT less than 55 seconds Heparin Sodium (Porcine) 5,000 units 12/08/24 07:12 12/12/24 22:47 Heparin Sodium 5,000 Units/Ml Vial IV PUSH 5,000 units PRN PRN Administration aPTT 55 - 70 seconds Dextrose 1,000 mls @ 100 mls/hr 11/26/24 16:15 Dextrose 5% 1,000 Ml IVPB PRN PRN Hypoglycemia Protocol Heparin Sodium/Dextrose 25,000 units in 250 mls @ 21 mls/hr 12/08/24 07:15 12/13/24 05:59 Heparin Sodium/D5w 100 Units/Ml IV CONT Not Given .[id number] EDMUNDO Protocol 2,100 UNITS/HR Propofol 100 mls @ 30 mls/hr 12/08/24 16:20 12/13/24 06:17 Diprivan IV CONT 25 mcg/kg/min .Q3H20M EDMUNDO 30 mls/hr Protocol Administration 25 MCG/KG/MIN Meropenem 1 gm/ Sodium 100 mls @ 200 mls/hr 12/09/24 14:00 12/13/24 06:59 Chloride IVPB 12/16/24 06:29 Infused Q8HR EDMUNDO Infusion Vancomycin HCl 2,000 mg in 500 mls @ 250 mls/hr 12/10/24 22:00 12/13/24 00:15 Vancomycin 2,000 Mg/Ns 500 Ml IVPB 12/15/24 23:59 Infused Q12H EDMUNDO Infusion Magnesium Sulfate 2 gm in 50 mls @ 25 mls/hr 12/13/24 07:50 12/13/24 09:34 Magnesium Sulf 2 Gm/Water 50ml IVPB 12/13/24 09:49 25 mls/hr ONCE ONE Administration Insulin Aspart 3 - 6 units 11/28/24 06:50 12/13/24 06:18 Insulin Aspart (*Bkc) 100 Units/Ml SUB-Q Not Given Q6HR [facility] Protocol Insulin Glargine 25 units 12/01/24 09:00 12/07/24 08:34 Insulin Glargine (*Bkc) 100 Units/Ml SUB-Q 25 units On Hold: 12/08/24 07:18 QAM EDMUNDO Administration Ipratropium [place] 0.5 mg 11/29/24 08:00 12/13/24 07:58 Ipratropium Br 0.02% Inh Soln 0.5 Mg/2.5 Ml Vial INHALATION 0.5 mg Q6HRT EDMUNDO Administration Levalbuterol HCl 1.25 mg 11/29/24 20:00 12/13/24 07:58 Levalbuterol Neb 1.25 Mg/3 Ml INHALATION 1.25 mg Q6HRT EDMUNDO Administration Linaclotide 145 mcg 12/10/24 06:30 12/13/24 06:15 Linaclotide 145 Mcg Capsule PO 145 mcg DAILY@0630 EDMUNDO Administration Multi-Ingred Cream/Lotion/Oil/Oint 1 applic 11/28/24 09:00 12/13/24 09:34 Mineral Oil/White Petrolatum Ointment EACH EYE Not Given Q12HR [facility] Pantoprazole Sodium 40 mg 11/29/24 09:00 12/13/24 09:33 Pantoprazole Sodium Iv 40 Mg Vial IV PUSH 40 mg QAM EDMUNDO Administration Polyethylene Glycol 17 gm 12/08/24 13:35 12/13/24 06:15 Polyethylene Glycol 3350 17 Gm Powd.Pack PO 17 gm Q8HR EDMUNDO Administration Senna/Docusate Sodium 1 tab 12/06/24 21:00 12/07/24 21:07 Senna/Docusate Sodium Tablet PO 1 tab On Hold: 12/08/24 07:17 HS EDMUNDO Administration Sodium Chloride 10 ml 11/28/24 14:00 12/13/24 06:17 Central Line Flush IV PUSH 10 ml Q8HR EDMUNDO Administration Sodium Chloride 20 ml 11/28/24 11:53 12/03/24 05:31 Central Line Flush IV PUSH 20 ml PRN PRN Administration after blood draws Radiology Results: ITS Impressions Venous Doppler Study 12/07/24 13:02 IMPRESSION: 1: No lower extremity deep venous thrombosis. Chest X-Ray 12/13/24 08:15 Impression: CHF. Superimposed pneumonia suspected Labs Labs: Laboratory Results - last 24 hr 12/12/24 12/12/24 12/12/24 11:42 17:39 22:06 WBC RBC Hgb Hct MCV MCH MCHC RDW Plt Count MPV Immature Gran % (Auto) Neut % (Auto) Lymph % (Auto) [place] % (Auto) Eos % (Auto) Baso % (Auto) Lymph # (Auto) [place] # (Auto) Eos # (Auto) Baso # (Auto) Abs Immat Gran (auto) Absolute Neuts (auto) Absolute Nucleated RBC Nucleated RBC % APTT 67.1 H Puncture Site ABG pH ABG pCO2 ABG pO2 ABG PO2/FiO2 Ratio ABG HCO3 ABG O2 Saturation ABG O2 Content ABG Base Excess A-a Gradient Oxyhemoglobin Carboxyhemoglobin Methemoglobin Reduced Hemoglobin Total Hemoglobin O2 Delivery Device O2 Liters/Min Minute Volume Vent Rate Vent Mode FiO2 Tidal Volume PEEP Peak Inspir Pressure Pressure Support Sodium Potassium Chloride Carbon Dioxide Anion Gap BUN Creatinine Estim Creat Clear Calc Estimated GFR Glucose POC Capillary Glucose 127 H 129 H Calcium Phosphorus Magnesium Total Bilirubin AST ALT Alkaline Phosphatase Total Protein Albumin Triglycerides 12/12/24 12/13/24 12/13/24 23:59 04:48 05:23 WBC 6.7 RBC 4.73 Hgb 12.8 L Hct 42.6 MCV 90.1 MCH 27.1 MCHC 30.0 L RDW 16.1 H Plt Count 159 MPV 10.3 Immature Gran % (Auto) 0.3 Neut % (Auto) 70.2 Lymph % (Auto) 20.5 [place] % (Auto) 4.8 Eos % (Auto) 3.6 Baso % (Auto) 0.6 Lymph # (Auto) 1.37 [place] # (Auto) 0.3 Eos # (Auto) 0.2 Baso # (Auto) 0.0 Abs Immat Gran (auto) 0.02 Absolute Neuts (auto) 4.7 Absolute Nucleated RBC 0.000 Nucleated RBC % 0.0 APTT 119.9 H Puncture Site Right radial ABG pH 7.407 ABG pCO2 44.8 ABG pO2 97.4 ABG PO2/FiO2 Ratio 2.43 ABG HCO3 27.6 H ABG O2 Saturation 97.4 ABG O2 Content 19.3 ABG Base Excess 2.4 A-a Gradient 136.3 Oxyhemoglobin 96.8 Carboxyhemoglobin 0.8 Methemoglobin 0.0 Reduced Hemoglobin 2.4 Total Hemoglobin 14.1 O2 Delivery Device Ventilator O2 Liters/Min Not Reportable Minute Volume Not Reportable Vent Rate 18 Vent Mode Cmv FiO2 40 Tidal Volume 450 PEEP 12 Peak Inspir Pressure Not Reportable Pressure Support Not Reportable Sodium 135 L Potassium 3.9 Chloride 101 Carbon Dioxide 30 Anion Gap 4 BUN 13 Creatinine 0.56 L Estim Creat Clear Calc 190 Estimated GFR > 60 Glucose 141 H POC Capillary Glucose 135 H Calcium 8.1 L Phosphorus 3.7 Magnesium 1.7 Total Bilirubin 0.8 AST 30 ALT 25 Alkaline Phosphatase 98 Total Protein 6.3 Albumin 2.8 L Triglycerides 123 Quality VTE Prophylaxis VTE prophylaxis: pharmacologic ordered
--- NOTE | 2024-12-13 11:13 | P.PNINF_ITS ---
Progress Note: A&P Assessment and Plan (1) Fever: Code(s): R50.9 - Fever, unspecified Status: Acute Assessment and Plan: -Fever resolving -Await final cultures results (2) Acute on chronic respiratory failure with hypoxia and hypercapnia: Code(s): J96.21 - Acute and chronic respiratory failure with hypoxia; J96.22 - Acute and chronic respiratory failure with hypercapnia Status: Acute Assessment and Plan: -Management as per ICU service (3) Pneumonia: Code(s): J18.9 - Pneumonia, unspecified organism Status: Acute Assessment and Plan: -Continue antimicrobials -Patient improving (4) Ileus: Code(s): K56.7 - Ileus, unspecified Status: Acute Assessment and Plan: -General Surgery service following -Resolved (5) Pseudomonas respiratory infection: Code(s): J98.8 - Other specified respiratory disorders; B96.5 - Pseudomonas (aeruginosa) (mallei) (pseudomallei) as the cause of diseases classified elsewhere Status: Acute Assessment and Plan: -S/P Cefepime, then Levofloxacin Plan Await repeat sputum and blood cultures -Continue Vancomycin IV -Discontinue Meropenem as no current evidence of Pseudomonas or gram-negative MDRO infection -Follow CBC and renal function -Ventilator management as per ICU service Discussed with patient's daughter today. Patient was seen via video telehealth consultation with the assistance of staff. Chart, data, and patient independently reviewed. Patient was located at [facility] while I was located in my [place] office. Subjective Date/time seen: 12/13/24 11:13 Interval history: Patient afebrile. Remains on ventilator. Sputum culture growing S. aureus. Patient has history of positive MRSA PCR. Tracheostomy attempted and unsuccessful. Plans to transfer to [facility] for tracheostomy Review of Systems Review of Systems: All systems reviewed & are unremarkable except as noted in HPI and below Exam Narrative: Gen: intubated, sedated HEENT: ETT in place, NG tube in place Pulm: on ventilator Abd: obese; PEG in place Ext: 1+ lower extremity edema Lines: Right IJV catheter Objective Data Vital Signs Vital Signs: Vital Signs - 24 hr 12/12/24 11:37 12/12/24 11:58 12/12/24 11:58 Temperature Pulse Rate 62 58 L 58 L Respiratory Rate 18 18 18 Blood Pressure Pulse Oximetry Oxygen Delivery Fraction of Inspired Oxygen 12/12/24 12:00 12/12/24 12:00 12/12/24 12:00 Temperature 96.9 F L Pulse Rate 60 Respiratory Rate 18 Blood Pressure 125/81 Pulse Oximetry 96 96 Oxygen Delivery Mechanical Ventilation Fraction of Inspired Oxygen 40 40 12/12/24 12:00 12/12/24 12:00 12/12/24 12:00 Temperature Pulse Rate 59 L 60 60 Respiratory Rate 18 18 Blood Pressure Pulse Oximetry Oxygen Delivery Fraction of Inspired Oxygen 12/12/24 13:00 12/12/24 14:00 12/12/24 14:00 Temperature 97.1 F L Pulse Rate 58 L 60 60 Respiratory Rate 18 18 18 Blood Pressure 133/82 Pulse Oximetry 97 Oxygen Delivery Fraction of Inspired Oxygen 12/12/24 14:00 12/12/24 14:00 12/12/24 14:01 Temperature 97.2 F L Pulse Rate 60 60 54 L Respiratory Rate 18 Blood Pressure 131/82 Pulse Oximetry 97 98 Oxygen Delivery Mechanical Ventilation Fraction of Inspired Oxygen 40 12/12/24 14:02 12/12/24 14:12 12/12/24 14:55 Temperature Pulse Rate 54 L 65 76 Respiratory Rate 18 18 18 Blood Pressure Pulse Oximetry Oxygen Delivery Fraction of Inspired Oxygen 12/12/24 14:55 12/12/24 14:55 12/12/24 14:55 Temperature Pulse Rate 76 76 76 Respiratory Rate 18 18 18 Blood Pressure Pulse Oximetry Oxygen Delivery Fraction of Inspired Oxygen 12/12/24 15:00 12/12/24 15:59 12/12/24 16:00 Temperature 97.2 F L Pulse Rate 60 71 71 Respiratory Rate 18 18 Blood Pressure 125/77 Pulse Oximetry 97 94 Oxygen Delivery Mechanical Ventilation Fraction of Inspired Oxygen 40 12/12/24 16:00 12/12/24 16:00 12/12/24 16:00 Temperature 97.3 F L Pulse Rate 71 70 66 Respiratory Rate 18 18 Blood Pressure 116/79 Pulse Oximetry 96 Oxygen Delivery Fraction of Inspired Oxygen 12/12/24 16:00 12/12/24 16:00 12/12/24 17:00 Temperature 97.1 F L Pulse Rate 63 Respiratory Rate 18 Blood Pressure 145/81 H Pulse Oximetry 96 96 Oxygen Delivery Mechanical Ventilation Fraction of Inspired Oxygen 40 40 12/12/24 17:43 12/12/24 17:46 12/12/24 17:46 Temperature Pulse Rate 62 65 65 Respiratory Rate 18 18 Blood Pressure Pulse Oximetry 96 Oxygen Delivery Mechanical Ventilation Fraction of Inspired Oxygen 40 12/12/24 18:00 12/12/24 18:00 12/12/24 18:00 Temperature 97.2 F L Pulse Rate 62 62 62 Respiratory Rate 18 18 Blood Pressure 136/76 Pulse Oximetry 96 Oxygen Delivery Fraction of Inspired Oxygen 12/12/24 18:00 12/12/24 19:00 12/12/24 19:55 Temperature 97.2 F L Pulse Rate 62 52 L 60 Respiratory Rate 18 18 20 Blood Pressure 127/81 Pulse Oximetry 96 Oxygen Delivery Fraction of Inspired Oxygen 12/12/24 20:00 12/12/24 20:00 12/12/24 20:00 Temperature Pulse Rate 60 60 Respiratory Rate 20 18 Blood Pressure Pulse Oximetry 97 Oxygen Delivery Mechanical Ventilation Fraction of Inspired Oxygen 40 12/12/24 20:00 12/12/24 20:00 12/12/24 20:00 Temperature 97.4 F L Pulse Rate 59 L 63 Respiratory Rate 18 Blood Pressure 132/79 Pulse Oximetry 97 Oxygen Delivery Fraction of Inspired Oxygen 40 12/12/24 20:33 12/12/24 20:33 12/12/24 20:38 Temperature Pulse Rate 64 64 59 L Respiratory Rate 18 18 20 Blood Pressure Pulse Oximetry Oxygen Delivery Fraction of Inspired Oxygen 12/12/24 20:45 12/12/24 20:49 12/12/24 21:00 Temperature 97.5 F L Pulse Rate 59 L 59 L 65 Respiratory Rate 20 18 Blood Pressure 138/75 Pulse Oximetry 97 97 Oxygen Delivery Mechanical Ventilation Fraction of Inspired Oxygen 40 12/12/24 22:00 12/12/24 22:00 12/12/24 22:00 Temperature 97.5 F L Pulse Rate 69 69 67 Respiratory Rate 19 19 18 Blood Pressure 129/85 Pulse Oximetry 96 Oxygen Delivery Fraction of Inspired Oxygen 12/12/24 22:00 12/12/24 23:00 12/12/24 23:18 Temperature 97.6 F Pulse Rate 67 64 66 Respiratory Rate 18 Blood Pressure 110/68 Pulse Oximetry 96 95 Oxygen Delivery Mechanical Ventilation Fraction of Inspired Oxygen 40 12/12/24 23:41 12/12/24 23:41 12/13/24 00:00 Temperature Pulse Rate 60 60 60 Respiratory Rate 18 18 18 Blood Pressure Pulse Oximetry Oxygen Delivery Fraction of Inspired Oxygen 12/13/24 00:00 12/13/24 00:00 12/13/24 00:00 Temperature 97.7 F Pulse Rate 60 60 Respiratory Rate 18 18 Blood Pressure 142/76 H Pulse Oximetry 97 Oxygen Delivery Fraction of Inspired Oxygen 40 12/13/24 00:00 12/13/24 00:00 12/13/24 01:00 Temperature 97.7 F Pulse Rate 62 61 Respiratory Rate 18 Blood Pressure 135/70 Pulse Oximetry 98 97 Oxygen Delivery Mechanical Ventilation Fraction of Inspired Oxygen 40 12/13/24 01:12 12/13/24 01:12 12/13/24 02:00 Temperature Pulse Rate 59 L 59 L 51 L Respiratory Rate 18 18 Blood Pressure Pulse Oximetry Oxygen Delivery Fraction of Inspired Oxygen 12/13/24 02:00 12/13/24 02:00 12/13/24 02:00 Temperature 97.7 F Pulse Rate 56 L 56 L 56 L Respiratory Rate 18 18 18 Blood Pressure 135/89 Pulse Oximetry 97 Oxygen Delivery Fraction of Inspired Oxygen 12/13/24 02:12 12/13/24 02:15 12/13/24 02:19 Temperature Pulse Rate 51 L 51 L 51 L Respiratory Rate 20 20 Blood Pressure Pulse Oximetry 95 Oxygen Delivery Mechanical Ventilation Fraction of Inspired Oxygen 40 12/13/24 02:58 12/13/24 02:58 12/13/24 03:00 Temperature 97.8 F Pulse Rate 67 67 67 Respiratory Rate 20 20 18 Blood Pressure 135/60 Pulse Oximetry 97 Oxygen Delivery Fraction of Inspired Oxygen 12/13/24 04:00 12/13/24 04:00 12/13/24 04:00 Temperature Pulse Rate 65 65 67 Respiratory Rate 18 18 18 Blood Pressure 114/68 Pulse Oximetry 95 Oxygen Delivery Fraction of Inspired Oxygen 12/13/24 04:00 12/13/24 04:00 12/13/24 04:00 Temperature Pulse Rate 65 Respiratory Rate Blood Pressure Pulse Oximetry 96 Oxygen Delivery Mechanical Ventilation Fraction of Inspired Oxygen 40 40 12/13/24 05:00 12/13/24 05:19 12/13/24 06:00 Temperature 98.5 F Pulse Rate 61 61 66 Respiratory Rate 18 18 Blood Pressure 129/85 Pulse Oximetry 98 98 Oxygen Delivery Mechanical Ventilation Fraction of Inspired Oxygen 40 12/13/24 06:00 12/13/24 06:00 12/13/24 06:00 Temperature 98.4 F Pulse Rate 66 62 62 Respiratory Rate 18 19 Blood Pressure 124/83 Pulse Oximetry 99 Oxygen Delivery Fraction of Inspired Oxygen 12/13/24 06:12 12/13/24 06:15 12/13/24 06:17 Temperature Pulse Rate 61 61 64 Respiratory Rate 20 20 19 Blood Pressure Pulse Oximetry Oxygen Delivery Fraction of Inspired Oxygen 12/13/24 06:17 12/13/24 07:00 12/13/24 07:45 Temperature 98.3 F Pulse Rate 64 59 L 58 L Respiratory Rate 19 18 18 Blood Pressure 134/72 Pulse Oximetry 99 Oxygen Delivery Fraction of Inspired Oxygen 12/13/24 07:58 12/13/24 07:59 12/13/24 08:00 Temperature Pulse Rate 55 L 55 L 61 Respiratory Rate 19 18 Blood Pressure Pulse Oximetry 98 Oxygen Delivery Mechanical Ventilation Fraction of Inspired Oxygen 40 12/13/24 08:00 12/13/24 08:05 12/13/24 09:00 Temperature 98.4 F 98.6 F Pulse Rate 63 66 76 Respiratory Rate 18 20 26 H Blood Pressure 110/69 87/49 L Pulse Oximetry 97 96 Oxygen Delivery Fraction of Inspired Oxygen 12/13/24 09:37 12/13/24 09:43 12/13/24 09:57 Temperature Pulse Rate 67 67 70 Respiratory Rate 22 H 22 H 24 H Blood Pressure Pulse Oximetry Oxygen Delivery Fraction of Inspired Oxygen 12/13/24 10:00 12/13/24 11:00 Temperature 98.9 F 99.1 F Pulse Rate 71 68 Respiratory Rate 24 H 24 H Blood Pressure 123/54 L 117/65 Pulse Oximetry 95 96 Oxygen Delivery Fraction of Inspired Oxygen Intake/Output Intake/Output: Intake & Output 12/10/24 12/11/24 12/12/24 12/13/24 23:59 23:59 23:59 23:59 Intake Total 2957.9 2701.2 3029.6 1884.0 Output Total 1810 5175 2000 725 Balance 1147.9 -2473.8 1029.6 1159.0 Meds/Results Medications: Active Medications Generic Name Dose Route Start Last Admin Trade Name Freq PRN Reason Stop Dose Admin Acetaminophen 650 mg 11/26/24 14:25 12/07/24 04:00 Acetaminophen 325 Mg Tablet PO 650 mg Q6H PRN Administration Mild Pain (1-3) or Fever Apixaban 5 mg 11/26/24 21:00 12/07/24 21:07 Apixaban 5 Mg Tablet PO 5 mg On Hold: 12/08/24 07:15 Q12HR EDMUNDO Administration Bisacodyl 10 mg 12/09/24 09:00 12/13/24 09:34 Bisacodyl 10 Mg Suppository RECTAL Not Given QAM EDMUNDO Dextrose 12.5 gm 11/26/24 16:15 Dextrose 50% 25 Gm/50 Ml Syringe IV PUSH PRN PRN Hypoglycemia Protocol Fentanyl Citrate 50 mcg 12/13/24 07:43 Fentanyl Citrate Inj (*Crx) 100 Mcg/2 Ml Vial IV PUSH Q1H PRN Pain while on vent Glucagon 1 mg 11/26/24 16:15 Glucagon For Inj 1 Mg Vial IM PRN PRN Hypoglycemia Protocol Glucose 15 gm 11/26/24 16:15 Glucose Oral Gel 15 Gm Of Glucse In 37.5 Gm Tube PO PRN PRN Hypoglycemia Protocol Heparin Sodium (Porcine) 10,000 units 12/08/24 07:12 Heparin Sodium 5,000 Units/Ml Vial IV PUSH PRN PRN aPTT less than 55 seconds Heparin Sodium (Porcine) 5,000 units 12/08/24 07:12 12/12/24 22:47 Heparin Sodium 5,000 Units/Ml Vial IV PUSH 5,000 units PRN PRN Administration aPTT 55 - 70 seconds Dextrose 1,000 mls @ 100 mls/hr 11/26/24 16:15 Dextrose 5% 1,000 Ml IVPB PRN PRN Hypoglycemia Protocol Heparin Sodium/Dextrose 25,000 units in 250 mls @ 21 mls/hr 12/08/24 07:15 12/13/24 05:59 Heparin Sodium/D5w 100 Units/Ml IV CONT Not Given .[id number] EDMUNDO Protocol 2,100 UNITS/HR Propofol 100 mls @ 24 mls/hr 12/08/24 16:20 12/13/24 09:57 Diprivan IV CONT 20 mcg/kg/min .Q4H10M EDMUNDO 24 mls/hr Protocol Titration 20 MCG/KG/MIN Meropenem 1 gm/ Sodium 100 mls @ 200 mls/hr 12/09/24 14:00 12/13/24 06:59 Chloride IVPB 12/16/24 06:29 Infused Q8HR EDMUNDO Infusion Vancomycin HCl 2,000 mg in 500 mls @ 250 mls/hr 12/10/24 22:00 12/13/24 09:44 Vancomycin 2,000 Mg/Ns 500 Ml IVPB 12/15/24 23:59 250 mls/hr Q12H EDMUNDO Administration Albumin Human 25 gm in 500 mls @ 125 mls/hr 12/13/24 10:15 Albumin Human 5% IV CONT 12/13/24 14:14 .Q4H ONE Insulin Aspart 3 - 6 units 11/28/24 06:50 12/13/24 06:18 Insulin Aspart (*Bkc) 100 Units/Ml SUB-Q Not Given Q6HR [facility] Protocol Insulin Glargine 25 units 12/01/24 09:00 12/07/24 08:34 Insulin Glargine (*Bkc) 100 Units/Ml SUB-Q 25 units QAM EDMUNDO Administration Ipratropium [place] 0.5 mg 11/29/24 08:00 12/13/24 07:58 Ipratropium Br 0.02% Inh Soln 0.5 Mg/2.5 Ml Vial INHALATION 0.5 mg Q6HRT EDMUNDO Administration Levalbuterol HCl 1.25 mg 11/29/24 20:00 12/13/24 07:58 Levalbuterol Neb 1.25 Mg/3 Ml INHALATION 1.25 mg Q6HRT EDMUNDO Administration Linaclotide 145 mcg 12/10/24 06:30 12/13/24 06:15 Linaclotide 145 Mcg Capsule PO 145 mcg DAILY@0630 EDMUNDO Administration Multi-Ingred Cream/Lotion/Oil/Oint 1 applic 11/28/24 09:00 12/13/24 09:34 Mineral Oil/White Petrolatum Ointment EACH EYE Not Given Q12HR EDMUNDO Pantoprazole Sodium 40 mg 11/29/24 09:00 12/13/24 09:33 Pantoprazole Sodium Iv 40 Mg Vial IV PUSH 40 mg QAM EDMUNDO Administration Polyethylene Glycol 17 gm 12/08/24 13:35 12/13/24 06:15 Polyethylene Glycol 3350 17 Gm Powd.Pack PO 17 gm Q8HR EDMUNDO Administration Senna/Docusate Sodium 1 tab 12/06/24 21:00 12/07/24 21:07 Senna/Docusate Sodium Tablet PO 1 tab On Hold: 12/08/24 07:17 HS EDMUNDO Administration Sodium Chloride 10 ml 11/28/24 14:00 12/13/24 06:17 Central Line Flush IV PUSH 10 ml Q8HR EDMUNDO Administration Sodium Chloride 20 ml 11/28/24 11:53 12/03/24 05:31 Central Line Flush IV PUSH 20 ml PRN PRN Administration after blood draws Radiology Results: ITS Impressions Venous Doppler Study 12/07/24 13:02 IMPRESSION: 1: No lower extremity deep venous thrombosis. Chest X-Ray 12/13/24 08:15 Impression: CHF. Superimposed pneumonia suspected Labs Labs: Laboratory Results - last 24 hr 12/12/24 12/12/24 12/12/24 11:42 17:39 22:06 WBC RBC Hgb Hct MCV MCH MCHC RDW Plt Count MPV Immature Gran % (Auto) Neut % (Auto) Lymph % (Auto) [place] % (Auto) Eos % (Auto) Baso % (Auto) Lymph # (Auto) [place] # (Auto) Eos # (Auto) Baso # (Auto) Abs Immat Gran (auto) Absolute Neuts (auto) Absolute Nucleated RBC Nucleated RBC % APTT 67.1 H Puncture Site ABG pH ABG pCO2 ABG pO2 ABG PO2/FiO2 Ratio ABG HCO3 ABG O2 Saturation ABG O2 Content ABG Base Excess A-a Gradient Oxyhemoglobin Carboxyhemoglobin Methemoglobin Reduced Hemoglobin Total Hemoglobin O2 Delivery Device O2 Liters/Min Minute Volume Vent Rate Vent Mode FiO2 Tidal Volume PEEP Peak Inspir Pressure Pressure Support Sodium Potassium Chloride Carbon Dioxide Anion Gap BUN Creatinine Estim Creat Clear Calc Estimated GFR Glucose POC Capillary Glucose 127 H 129 H Calcium Phosphorus Magnesium Total Bilirubin AST ALT Alkaline Phosphatase Total Protein Albumin Triglycerides 12/12/24 12/13/24 12/13/24 23:59 04:48 05:23 WBC 6.7 RBC 4.73 Hgb 12.8 L Hct 42.6 MCV 90.1 MCH 27.1 MCHC 30.0 L RDW 16.1 H Plt Count 159 MPV 10.3 Immature Gran % (Auto) 0.3 Neut % (Auto) 70.2 Lymph % (Auto) 20.5 [place] % (Auto) 4.8 Eos % (Auto) 3.6 Baso % (Auto) 0.6 Lymph # (Auto) 1.37 [place] # (Auto) 0.3 Eos # (Auto) 0.2 Baso # (Auto) 0.0 Abs Immat Gran (auto) 0.02 Absolute Neuts (auto) 4.7 Absolute Nucleated RBC 0.000 Nucleated RBC % 0.0 APTT 119.9 H Puncture Site Right radial ABG pH 7.407 ABG pCO2 44.8 ABG pO2 97.4 ABG PO2/FiO2 Ratio 2.43 ABG HCO3 27.6 H ABG O2 Saturation 97.4 ABG O2 Content 19.3 ABG Base Excess 2.4 A-a Gradient 136.3 Oxyhemoglobin 96.8 Carboxyhemoglobin 0.8 Methemoglobin 0.0 Reduced Hemoglobin 2.4 Total Hemoglobin 14.1 O2 Delivery Device Ventilator O2 Liters/Min Not Reportable Minute Volume Not Reportable Vent Rate 18 Vent Mode Cmv FiO2 40 Tidal Volume 450 PEEP 12 Peak Inspir Pressure Not Reportable Pressure Support Not Reportable Sodium 135 L Potassium 3.9 Chloride 101 Carbon Dioxide 30 Anion Gap 4 BUN 13 Creatinine 0.56 L Estim Creat Clear Calc 190 Estimated GFR > 60 Glucose 141 H POC Capillary Glucose 135 H Calcium 8.1 L Phosphorus 3.7 Magnesium 1.7 Total Bilirubin 0.8 AST 30 ALT 25 Alkaline Phosphatase 98 Total Protein 6.3 Albumin 2.8 L Triglycerides 123
--- NOTE | 2024-12-13 11:38 | PCNFU ---
Nutrition Follow-Up Complete: Suboptimal Energy Intake as related to mechanical vent as evidenced by NPO. Goal: Meet estimated nutritional needs Patient will continue current goal. Pt current nutrition is Vital HP at 50 ml/hr. Last recorded weight is 192.5 kg. Bowel Motility: Last reported BM 12/11 Labs Reviewed:Glu 141, Cr 0.56, Na 135, Hgb 12.8, Alb 2.85 Meds Noted: Vancomycin, Propofol 25 gcxq=357 kcal, Lantus Skin: WNL Additional Notes: Patient current with Trach and PEG. Tube feedings are currently at 50 ml/hr for 24 hours of Vital HP. Total Nutrition including Propofol: 1992 kcal and 105 gm protein. Meeting 100% kcal needs at 22 kcal/kg IBW and 72% protein needs at 1.8 gm/kg. Agree with diet orders. Will monitor weight, labs, skin, diet orders, meds every Thursday and Thursday.
[2024-12-13 12:17] LABS: Partial Thromboplastin Time 76.0 Seconds (22.3-36.8)
[2024-12-13] MEDS: PROPOFOL IV EMULSION 100 ML 42 MG IV CONT ×2 (13:07→15:30)
[2024-12-13] MEDS: FUROSEMIDE INJ 100 MG/10 ML VIAL 80 MG IV PUSH (14:02)
--- NOTE | 2024-12-13 15:28 | P.PNGI_ITS ---
Progress Note: A&P Assessment and Plan (1) Chronic constipation: Code(s): K59.09 - Other constipation Status: Acute Assessment and Plan: he is having BM with current medical treatment tolerating tube feeding by PEG tube will follow as needed (2) Acute hypoxic respiratory failure: Code(s): J96.01 - Acute respiratory failure with hypoxia Status: Acute Assessment and Plan: still intubated will require trach by ENT (3) Class 3 severe obesity with body mass index (BMI) of 60.0 to 69.9 in adult: Qualifiers: Obesity type: due to excess calories Serious obesity comorbidity presence: with serious comorbidity Qualified Code(s): E66.813 - Obesity, class 3; Z68.44 - Body mass index [BMI] 60.0-69.9, adult Code(s): E66.813 - Obesity, class 3; Z68.44 - Body mass index [BMI] 60.0-69.9, adult Status: Acute (4) Pneumonia: Code(s): J18.9 - Pneumonia, unspecified organism Status: Acute (5) Atrial fibrillation with RVR: Code(s): I48.91 - Unspecified atrial fibrillation Status: Acute Subjective Date/time seen: 12/13/24 15:28 Interval history: tolerating tube feeding at 50ml/h and having BM still intubated Review of Systems Review of Systems: All systems reviewed & are unremarkable except as noted in HPI and below Exam 2 Narrative: General: Significantly obese gentleman, currently intubated, sedated in no acute distress HEENT:? Pupils equal and reactive, sclera is clear, ETT in place Neck:? Thick and short neck Respiratory:? Decreased air entry bilaterally, no wheezing. Cardiac:? Distant heart sounds, irregularly irregular Abdomen:? Morbidly. + PEG in place, + BS Extremities:? Edema is improving in bilateral lower extremities. Neuro:? Patient is intubated, nods to questions follows simple commands in lower extremities, moves all extremities spontaneously Skin:? Bruising noted on upper extremities, torso, chronic venous stasis changes on bilateral lower extremity Psych:? Unable to assess at this time Objective Data Vital Signs Vital Signs: Vital Signs - 24 hr 12/12/24 15:59 12/12/24 16:00 12/12/24 16:00 Temperature Pulse Rate 71 71 71 Respiratory Rate 18 18 Blood Pressure Pulse Oximetry 94 Oxygen Delivery Mechanical Ventilation Fraction of Inspired Oxygen 40 12/12/24 16:00 12/12/24 16:00 12/12/24 16:00 Temperature 97.3 F L Pulse Rate 70 66 Respiratory Rate 18 Blood Pressure 116/79 Pulse Oximetry 96 96 Oxygen Delivery Mechanical Ventilation Fraction of Inspired Oxygen 40 12/12/24 16:00 12/12/24 17:00 12/12/24 17:43 Temperature 97.1 F L Pulse Rate 63 62 Respiratory Rate 18 Blood Pressure 145/81 H Pulse Oximetry 96 96 Oxygen Delivery Mechanical Ventilation Fraction of Inspired Oxygen 40 40 12/12/24 17:46 12/12/24 17:46 12/12/24 18:00 Temperature 97.2 F L Pulse Rate 65 65 62 Respiratory Rate 18 18 18 Blood Pressure 136/76 Pulse Oximetry 96 Oxygen Delivery Fraction of Inspired Oxygen 12/12/24 18:00 12/12/24 18:00 12/12/24 18:00 Temperature Pulse Rate 62 62 62 Respiratory Rate 18 18 Blood Pressure Pulse Oximetry Oxygen Delivery Fraction of Inspired Oxygen 12/12/24 19:00 12/12/24 19:55 12/12/24 20:00 Temperature 97.2 F L Pulse Rate 52 L 60 60 Respiratory Rate 18 20 20 Blood Pressure 127/81 Pulse Oximetry 96 Oxygen Delivery Fraction of Inspired Oxygen 12/12/24 20:00 12/12/24 20:00 12/12/24 20:00 Temperature Pulse Rate 60 Respiratory Rate 18 Blood Pressure Pulse Oximetry 97 Oxygen Delivery Mechanical Ventilation Fraction of Inspired Oxygen 40 40 12/12/24 20:00 12/12/24 20:00 12/12/24 20:33 Temperature 97.4 F L Pulse Rate 59 L 63 64 Respiratory Rate 18 18 Blood Pressure 132/79 Pulse Oximetry 97 Oxygen Delivery Fraction of Inspired Oxygen 12/12/24 20:33 12/12/24 20:38 12/12/24 20:45 Temperature Pulse Rate 64 59 L 59 L Respiratory Rate 18 20 Blood Pressure Pulse Oximetry 97 Oxygen Delivery Mechanical Ventilation Fraction of Inspired Oxygen 40 12/12/24 20:49 12/12/24 21:00 12/12/24 22:00 Temperature 97.5 F L Pulse Rate 59 L 65 69 Respiratory Rate 20 18 19 Blood Pressure 138/75 Pulse Oximetry 97 Oxygen Delivery Fraction of Inspired Oxygen 12/12/24 22:00 12/12/24 22:00 12/12/24 22:00 Temperature 97.5 F L Pulse Rate 69 67 67 Respiratory Rate 19 18 Blood Pressure 129/85 Pulse Oximetry 96 Oxygen Delivery Fraction of Inspired Oxygen 12/12/24 23:00 12/12/24 23:18 12/12/24 23:41 Temperature 97.6 F Pulse Rate 64 66 60 Respiratory Rate 18 18 Blood Pressure 110/68 Pulse Oximetry 96 95 Oxygen Delivery Mechanical Ventilation Fraction of Inspired Oxygen 40 12/12/24 23:41 12/13/24 00:00 12/13/24 00:00 Temperature Pulse Rate 60 60 60 Respiratory Rate 18 18 18 Blood Pressure Pulse Oximetry Oxygen Delivery Fraction of Inspired Oxygen 12/13/24 00:00 12/13/24 00:00 12/13/24 00:00 Temperature 97.7 F Pulse Rate 60 62 Respiratory Rate 18 Blood Pressure 142/76 H Pulse Oximetry 97 Oxygen Delivery Fraction of Inspired Oxygen 40 12/13/24 00:00 12/13/24 01:00 12/13/24 01:12 Temperature 97.7 F Pulse Rate 61 59 L Respiratory Rate 18 18 Blood Pressure 135/70 Pulse Oximetry 98 97 Oxygen Delivery Mechanical Ventilation Fraction of Inspired Oxygen 40 12/13/24 01:12 12/13/24 02:00 12/13/24 02:00 Temperature 97.7 F Pulse Rate 59 L 51 L 56 L Respiratory Rate 18 18 Blood Pressure 135/89 Pulse Oximetry 97 Oxygen Delivery Fraction of Inspired Oxygen 12/13/24 02:00 12/13/24 02:00 12/13/24 02:12 Temperature Pulse Rate 56 L 56 L 51 L Respiratory Rate 18 18 20 Blood Pressure Pulse Oximetry Oxygen Delivery Fraction of Inspired Oxygen 12/13/24 02:15 12/13/24 02:19 12/13/24 02:58 Temperature Pulse Rate 51 L 51 L 67 Respiratory Rate 20 20 Blood Pressure Pulse Oximetry 95 Oxygen Delivery Mechanical Ventilation Fraction of Inspired Oxygen 40 12/13/24 02:58 12/13/24 03:00 12/13/24 04:00 Temperature 97.8 F Pulse Rate 67 67 65 Respiratory Rate 20 18 18 Blood Pressure 135/60 Pulse Oximetry 97 Oxygen Delivery Fraction of Inspired Oxygen 12/13/24 04:00 12/13/24 04:00 12/13/24 04:00 Temperature Pulse Rate 65 67 Respiratory Rate 18 18 Blood Pressure 114/68 Pulse Oximetry 95 Oxygen Delivery Fraction of Inspired Oxygen 40 12/13/24 04:00 12/13/24 04:00 12/13/24 05:00 Temperature 98.5 F Pulse Rate 65 61 Respiratory Rate 18 Blood Pressure 129/85 Pulse Oximetry 96 98 Oxygen Delivery Mechanical Ventilation Fraction of Inspired Oxygen 40 12/13/24 05:19 12/13/24 06:00 12/13/24 06:00 Temperature Pulse Rate 61 66 66 Respiratory Rate 18 18 Blood Pressure Pulse Oximetry 98 Oxygen Delivery Mechanical Ventilation Fraction of Inspired Oxygen 40 12/13/24 06:00 12/13/24 06:00 12/13/24 06:12 Temperature 98.4 F Pulse Rate 62 62 61 Respiratory Rate 19 20 Blood Pressure 124/83 Pulse Oximetry 99 Oxygen Delivery Fraction of Inspired Oxygen 12/13/24 06:15 12/13/24 06:17 12/13/24 06:17 Temperature Pulse Rate 61 64 64 Respiratory Rate 20 19 19 Blood Pressure Pulse Oximetry Oxygen Delivery Fraction of Inspired Oxygen 12/13/24 07:00 12/13/24 07:45 12/13/24 07:58 Temperature 98.3 F Pulse Rate 59 L 58 L 55 L Respiratory Rate 18 18 19 Blood Pressure 134/72 Pulse Oximetry 99 Oxygen Delivery Fraction of Inspired Oxygen 12/13/24 07:59 12/13/24 08:00 12/13/24 08:00 Temperature 98.4 F Pulse Rate 55 L 61 63 Respiratory Rate 18 18 Blood Pressure 110/69 Pulse Oximetry 98 97 Oxygen Delivery Mechanical Ventilation Fraction of Inspired Oxygen 40 12/13/24 08:00 12/13/24 08:00 12/13/24 08:00 Temperature Pulse Rate 70 Respiratory Rate Blood Pressure Pulse Oximetry 97 Oxygen Delivery Mechanical Ventilation Fraction of Inspired Oxygen 40 40 12/13/24 08:05 12/13/24 09:00 12/13/24 09:37 Temperature 98.6 F Pulse Rate 66 76 67 Respiratory Rate 20 26 H 22 H Blood Pressure 87/49 L Pulse Oximetry 96 Oxygen Delivery Fraction of Inspired Oxygen 12/13/24 09:43 12/13/24 09:57 12/13/24 10:00 Temperature 98.9 F Pulse Rate 67 70 71 Respiratory Rate 22 H 24 H 24 H Blood Pressure 123/54 L Pulse Oximetry 95 Oxygen Delivery Fraction of Inspired Oxygen 12/13/24 10:00 12/13/24 11:00 12/13/24 12:00 Temperature 99.1 F Pulse Rate 71 68 73 Respiratory Rate 24 H 22 H Blood Pressure 117/65 Pulse Oximetry 96 Oxygen Delivery Fraction of Inspired Oxygen 12/13/24 12:00 12/13/24 12:00 12/13/24 12:00 Temperature 98.9 F Pulse Rate 73 72 Respiratory Rate 22 H Blood Pressure 110/73 Pulse Oximetry 96 Oxygen Delivery Fraction of Inspired Oxygen 40 12/13/24 12:00 12/13/24 12:03 12/13/24 13:00 Temperature 98.0 F Pulse Rate 74 69 Respiratory Rate 20 Blood Pressure 123/67 Pulse Oximetry 96 98 99 Oxygen Delivery Mechanical Ventilation Mechanical Ventilation Fraction of Inspired Oxygen 40 40 12/13/24 13:07 12/13/24 13:07 12/13/24 14:00 Temperature Pulse Rate 73 73 77 Respiratory Rate 22 H 22 H 20 Blood Pressure Pulse Oximetry Oxygen Delivery Fraction of Inspired Oxygen 12/13/24 14:00 12/13/24 14:00 12/13/24 14:07 Temperature 98.6 F Pulse Rate 77 77 80 Respiratory Rate 20 22 H Blood Pressure 125/75 Pulse Oximetry 96 Oxygen Delivery Fraction of Inspired Oxygen 12/13/24 14:12 12/13/24 14:13 12/13/24 15:00 Temperature 98.3 F Pulse Rate 72 78 84 Respiratory Rate 22 H 22 H Blood Pressure 138/65 Pulse Oximetry 96 96 Oxygen Delivery Mechanical Ventilation Fraction of Inspired Oxygen 40 Intake/Output Intake/Output: Intake & Output 12/10/24 12/11/24 12/12/24 12/13/24 23:59 23:59 23:59 23:59 Intake Total 2957.9 2701.2 3029.6 2643.8 Output Total 1810 5175 2000 725 Balance 1147.9 -2473.8 1029.6 1918.8 Meds/Results Medications: Active Medications Generic Name Dose Route Start Last Admin Trade Name Freq PRN Reason Stop Dose Admin Acetaminophen 650 mg 11/26/24 14:25 12/07/24 04:00 Acetaminophen 325 Mg Tablet PO 650 mg Q6H PRN Administration Mild Pain (1-3) or Fever Apixaban 5 mg 11/26/24 21:00 12/07/24 21:07 Apixaban 5 Mg Tablet PO 5 mg On Hold: 12/08/24 07:15 Q12HR EDMUNDO Administration Bisacodyl 10 mg 12/13/24 13:10 Bisacodyl 10 Mg Suppository RECTAL QAM PRN Constipation Dextrose 12.5 gm 11/26/24 16:15 Dextrose 50% 25 Gm/50 Ml Syringe IV PUSH PRN PRN Hypoglycemia Protocol Fentanyl Citrate 50 mcg 12/13/24 07:43 Fentanyl Citrate Inj (*Crx) 100 Mcg/2 Ml Vial IV PUSH Q1H PRN Pain while on vent Glucagon 1 mg 11/26/24 16:15 Glucagon For Inj 1 Mg Vial IM PRN PRN Hypoglycemia Protocol Glucose 15 gm 11/26/24 16:15 Glucose Oral Gel 15 Gm Of Glucse In 37.5 Gm Tube PO PRN PRN Hypoglycemia Protocol Heparin Sodium (Porcine) 10,000 units 12/08/24 07:12 Heparin Sodium 5,000 Units/Ml Vial IV PUSH PRN PRN aPTT less than 55 seconds Heparin Sodium (Porcine) 5,000 units 12/08/24 07:12 12/12/24 22:47 Heparin Sodium 5,000 Units/Ml Vial IV PUSH 5,000 units PRN PRN Administration aPTT 55 - 70 seconds Dextrose 1,000 mls @ 100 mls/hr 11/26/24 16:15 Dextrose 5% 1,000 Ml IVPB PRN PRN Hypoglycemia Protocol Heparin Sodium/Dextrose 25,000 units in 250 mls @ 21 mls/hr 12/08/24 07:15 12/13/24 12:22 Heparin Sodium/D5w 100 Units/Ml IV CONT 2,100 units/hr .[id number] EDMUNDO 21 mls/hr Protocol Titration 2,100 UNITS/HR Propofol 100 mls @ 42 mls/hr 12/08/24 16:20 12/13/24 14:00 Diprivan IV CONT 35 mcg/kg/min .Q2H23M EDMUNDO 42 mls/hr Protocol Titration 35 MCG/KG/MIN Vancomycin HCl 2,000 mg in 500 mls @ 250 mls/hr 12/10/24 22:00 12/13/24 12:05 Vancomycin 2,000 Mg/Ns 500 Ml IVPB 12/15/24 23:59 Infused Q12H EDMUNDO Infusion Insulin Aspart 3 - 6 units 11/28/24 06:50 12/13/24 12:02 Insulin Aspart (*Bkc) 100 Units/Ml SUB-Q Not Given Q6HR EDMUNDO Protocol Insulin Glargine 25 units 12/01/24 09:00 12/07/24 08:34 Insulin Glargine (*Bkc) 100 Units/Ml SUB-Q 25 units QAM EDMUNDO Administration Ipratropium [place] 0.5 mg 11/29/24 08:00 12/13/24 14:06 Ipratropium Br 0.02% Inh Soln 0.5 Mg/2.5 Ml Vial INHALATION 0.5 mg Q6HRT EDMUNDO Administration Levalbuterol HCl 1.25 mg 11/29/24 20:00 12/13/24 14:06 Levalbuterol Neb 1.25 Mg/3 Ml INHALATION 1.25 mg Q6HRT EDMUNDO Administration Multi-Ingred Cream/Lotion/Oil/Oint 1 applic 11/28/24 09:00 12/13/24 09:34 Mineral Oil/White Petrolatum Ointment EACH EYE Not Given Q12HR EDMUNDO Pantoprazole Sodium 40 mg 11/29/24 09:00 12/13/24 09:33 Pantoprazole Sodium Iv 40 Mg Vial IV PUSH 40 mg QAM EDMUNDO Administration Polyethylene Glycol 17 gm 12/13/24 13:10 Polyethylene Glycol 3350 17 Gm Powd.Pack PO Q8HR PRN Constipation Senna/Docusate Sodium 1 tab 12/06/24 21:00 12/07/24 21:07 Senna/Docusate Sodium Tablet PO 1 tab On Hold: 12/08/24 07:17 HS EDMUNDO Administration Sodium Chloride 10 ml 11/28/24 14:00 12/13/24 14:02 Central Line Flush IV PUSH 10 ml Q8HR EDMUNDO Administration Sodium Chloride 20 ml 11/28/24 11:53 12/03/24 05:31 Central Line Flush IV PUSH 20 ml PRN PRN Administration after blood draws Radiology Results: ITS Impressions Venous Doppler Study 12/07/24 13:02 IMPRESSION: 1: No lower extremity deep venous thrombosis. Chest X-Ray 12/13/24 08:15 Impression: CHF. Superimposed pneumonia suspected Labs Labs: Laboratory Results - last 24 hr 12/12/24 12/12/24 12/12/24 17:39 22:06 23:59 WBC RBC Hgb Hct MCV MCH MCHC RDW Plt Count MPV Immature Gran % (Auto) Neut % (Auto) Lymph % (Auto) [place] % (Auto) Eos % (Auto) Baso % (Auto) Lymph # (Auto) [place] # (Auto) Eos # (Auto) Baso # (Auto) Abs Immat Gran (auto) Absolute Neuts (auto) Absolute Nucleated RBC Nucleated RBC % APTT 67.1 H Puncture Site ABG pH ABG pCO2 ABG pO2 ABG PO2/FiO2 Ratio ABG HCO3 ABG O2 Saturation ABG O2 Content ABG Base Excess A-a Gradient Oxyhemoglobin Carboxyhemoglobin Methemoglobin Reduced Hemoglobin Total Hemoglobin O2 Delivery Device O2 Liters/Min Minute Volume Vent Rate Vent Mode FiO2 Tidal Volume PEEP Peak Inspir Pressure Pressure Support Sodium Potassium Chloride Carbon Dioxide Anion Gap BUN Creatinine Estim Creat Clear Calc Estimated GFR Glucose POC Capillary Glucose 129 H 135 H Calcium Phosphorus Magnesium Total Bilirubin AST ALT Alkaline Phosphatase Total Protein Albumin Triglycerides 12/13/24 12/13/24 12/13/24 04:48 05:23 11:48 WBC 6.7 RBC 4.73 Hgb 12.8 L Hct 42.6 MCV 90.1 MCH 27.1 MCHC 30.0 L RDW 16.1 H Plt Count 159 MPV 10.3 Immature Gran % (Auto) 0.3 Neut % (Auto) 70.2 Lymph % (Auto) 20.5 [place] % (Auto) 4.8 Eos % (Auto) 3.6 Baso % (Auto) 0.6 Lymph # (Auto) 1.37 [place] # (Auto) 0.3 Eos # (Auto) 0.2 Baso # (Auto) 0.0 Abs Immat Gran (auto) 0.02 Absolute Neuts (auto) 4.7 Absolute Nucleated RBC 0.000 Nucleated RBC % 0.0 APTT 119.9 H Puncture Site Right radial ABG pH 7.407 ABG pCO2 44.8 ABG pO2 97.4 ABG PO2/FiO2 Ratio 2.43 ABG HCO3 27.6 H ABG O2 Saturation 97.4 ABG O2 Content 19.3 ABG Base Excess 2.4 A-a Gradient 136.3 Oxyhemoglobin 96.8 Carboxyhemoglobin 0.8 Methemoglobin 0.0 Reduced Hemoglobin 2.4 Total Hemoglobin 14.1 O2 Delivery Device Ventilator O2 Liters/Min Not Reportable Minute Volume Not Reportable Vent Rate 18 Vent Mode Cmv FiO2 40 Tidal Volume 450 PEEP 12 Peak Inspir Pressure Not Reportable Pressure Support Not Reportable Sodium 135 L Potassium 3.9 Chloride 101 Carbon Dioxide 30 Anion Gap 4 BUN 13 Creatinine 0.56 L Estim Creat Clear Calc 190 Estimated GFR > 60 Glucose 141 H POC Capillary Glucose 109 H Calcium 8.1 L Phosphorus 3.7 Magnesium 1.7 Total Bilirubin 0.8 AST 30 ALT 25 Alkaline Phosphatase 98 Total Protein 6.3 Albumin 2.8 L Triglycerides 123 12/13/24 11:51 WBC RBC Hgb Hct MCV MCH MCHC RDW Plt Count MPV Immature Gran % (Auto) Neut % (Auto) Lymph % (Auto) [place] % (Auto) Eos % (Auto) Baso % (Auto) Lymph # (Auto) [place] # (Auto) Eos # (Auto) Baso # (Auto) Abs Immat Gran (auto) Absolute Neuts (auto) Absolute Nucleated RBC Nucleated RBC % APTT 76.0 H Puncture Site ABG pH ABG pCO2 ABG pO2 ABG PO2/FiO2 Ratio ABG HCO3 ABG O2 Saturation ABG O2 Content ABG Base Excess A-a Gradient Oxyhemoglobin Carboxyhemoglobin Methemoglobin Reduced Hemoglobin Total Hemoglobin O2 Delivery Device O2 Liters/Min Minute Volume Vent Rate Vent Mode FiO2 Tidal Volume PEEP Peak Inspir Pressure Pressure Support Sodium Potassium Chloride Carbon Dioxide Anion Gap BUN Creatinine Estim Creat Clear Calc Estimated GFR Glucose POC Capillary Glucose Calcium Phosphorus Magnesium Total Bilirubin AST ALT Alkaline Phosphatase Total Protein Albumin Triglycerides
[2024-12-13] MEDS: HEPARIN SOD/D5W 100 UNITS/ML 25,000 UNITS/250 ML BAG 21 UNITS IV CONT (16:14)
[2024-12-13] MEDS: PROPOFOL IV EMULSION 100 ML 48 MG IV CONT ×3 (17:39→21:46)
[2024-12-13] MEDS: fentaNYL CITRATE INJ (*CRX) 100 MCG/2 ML VIAL 50 MCG IV PUSH ×2 (18:05→21:37)
[2024-12-13 18:39] LABS: Partial Thromboplastin Time 73.7 Seconds (22.3-36.8)
--- NOTE | 2024-12-13 23:58 | PC.NURSE ---
2207- Notified by Alondra at [facility] transfer center that patient had a bed available at [facility] [address] Dr. Johnson is the accepting physician.
--- NOTE | 2024-12-14 12:32 | P.TS_ITS ---
Transfer Discharge Sum: Prov Provider Date of admission: 11/26/24 06:51 Primary care physician: Manish Crooks, MD Admitting clinician: Ny Jones DO Consults: 11/26/24 Consult to Physician Routine Comment: Consulting Provider: Sushma Suresh Reason for consultation: Hypoxia Has provider been notified: Yes Wound/ET Consult Routine Reason for Consult:: Left great toe 11/28/24 Consult to Physician Routine Comment: Consulting Provider: Ysabel Morocho vp respiratory/MD group to consult: Dr. Morocho--at 05:40 Reason for consultation: Acute on chronic hypercapnic respiratory failure Has provider been notified: Yes 12/07/24 13:59 Consult to Physician Routine Comment: Spoke with provider office 12/07 @ 4591 Consulting Provider: Rey Wong vp respiratory/MD group to consult: Surgery Reason for consultation: Ileus and small-bowel obstruction Has provider been notified: Yes 12/08/24 10:24 Consult to Physician Routine Comment: Left voicemail for provider 12/08 @ 0515 Consulting Provider: Artemio Carroll vp respiratory/MD group to consult: GI Reason for consultation: large bowel obstruction Has provider been notified: Yes 12/09/24 08:53 Consult to Physician Routine Comment: Consulting Provider: Jd Vargas vp respiratory/MD group to consult: Infectious disease Reason for consultation: Fevers, Pseudomonas pneumonia Has provider been notified: Yes 12/09/24 13:58 Consult to Physician Routine Comment: Consulting Provider: Sarwat Feliz vp respiratory/MD group to consult: ENT Called Dr. Feliz with consult information Reason for consultation: Tracheostomy Has provider been notified: Yes Consult to Physician Routine Comment: Consulting Provider: Artemio Carroll vp respiratory/MD group to consult: GI Called Dr. Monroe and left message for consult. Reason for consultation: PEG tube placement Has provider been notified: Yes Attending physician on discharge: Guido Sneed Discharging clinician: Guido Sneed Anticipated date of transfer: 12/13/24 Receiving physician/facility: [facility]. Accepting physician Dr. Johnson DS: Admitting Diagnosis Discharge Date 12/13/24 Admitting Diagnosis Respiratory failure DS: Discharge Diagnosis Discharge Diagnosis (1) Fever: Code(s): R50.9 - Fever, unspecified Status: Acute (2) Acute on chronic respiratory failure with hypoxia and hypercapnia: Code(s): J96.21 - Acute and chronic respiratory failure with hypoxia; J96.22 - Acute and chronic respiratory failure with hypercapnia Status: Acute (3) COPD exacerbation: Code(s): J44.1 - Chronic obstructive pulmonary disease with (acute) exacerbation Status: Acute (4) Pneumonia: Code(s): J18.9 - Pneumonia, unspecified organism Status: Acute (5) Hypotension: Code(s): I95.9 - Hypotension, unspecified Status: Acute (6) Atrial fibrillation with RVR: Code(s): I48.91 - Unspecified atrial fibrillation Status: Acute (7) Type 2 diabetes mellitus: Qualifiers: Diabetes mellitus nursing home insulin use: without nursing home use Diabetes mellitus complication status: without complication Qualified Code(s): E11.9 - Type 2 diabetes mellitus without complications Code(s): E11.9 - Type 2 diabetes mellitus without complications Status: Acute (8) Essential hypertension: Code(s): I10 - Essential (primary) hypertension Status: Acute (9) KATIE (obstructive sleep apnea): Code(s): G47.33 - Obstructive sleep apnea (adult) (pediatric) Status: Acute (10) Edema of abdominal wall: Code(s): R60.0 - Localized edema Status: Acute (11) Electrolyte abnormality: Code(s): E87.8 - Other disorders of electrolyte and fluid balance, not elsewhere c lassified Status: Acute (12) Ileus: Code(s): K56.7 - Ileus, unspecified Status: Acute Transfer Discharge Sum: Med Medications Active and Home Medications: Home Medications [id number] 300 mcg-K 60 mcg-lycop 600 mcg-lutein 300 mcg tablet (Centrum Silver Men) 1 tablet PO DAILY 05/13/19 [History Confirmed 11/26/24] Held on 11/26/24. Instructions: Patient no longer taking sertraline 50 mg tablet 50 mg PO DAILY #90 tabs 11/14/19 [Rx Confirmed 11/26/24] amlodipine 10 mg tablet 10 mg PO DAILY #90 tabs 03/02/20 [Rx Confirmed 11/26/24] Held on 11/26/24. Instructions: Patient no longer taking lisinopril 40 mg tablet See Rx Instructions .Route .COMPLEX #30 tabs 01/01/22 [Rx Confirmed 11/26/24] metformin 1,000 mg tablet 1,000 mg PO BID 07/20/24 [History Confirmed 11/26/24] apixaban 5 mg tablet (Eliquis) 5 mg PO Q12HR #30 tabs 07/24/24 [Rx Confirmed 11/26/24] Held on 11/26/24. Instructions: Patient no longer taking bacitracin 500 unit/gram topical ointment 1 applic topical Q12HR #30 grams 07/24/24 [Rx Confirmed 11/26/24] Held on 11/26/24. Instructions: Patient no longer taking furosemide 40 mg tablet 40 mg PO BID #30 tabs 07/24/24 [Rx Confirmed 11/26/24] guaifenesin 600 mg tablet, extended release 12 hr (Mucus Relief ER) 1,200 mg (2 x 600 mg) PO Q12HR #30 tabs 07/24/24 [Rx Confirmed 11/26/24] levalbuterol HCl 1.25 mg/3 mL solution for nebulization 1.25 mg (3 mL) inhalation Q4HRT PRN shortness of breath or wheezing #30 mL 07/24/24 [Rx Confirmed 11/26/24] umeclidinium 62.5 mcg-vilanterol 25 mcg/actuation powdr for inhalation (Anoro Ellipta) 1 inh inhalation DAILY #60 ea 07/24/24 [Rx Confirmed 11/26/24] Transfer Discharge Sum: Hosp Hospital Course Hospital course: Aman Newberry is a 64 year old male with past medical history of morbid obesity and multifactorial chronic respiratory failure secondary to COPD, obstructive sleep apnea, obesity hypoventilation syndrome who was admitted on 11/26 to [facility] with chief complaint of shortness of breath patient was found to be having atelectasis of left lung and also hypercarbic and hypoxic respiratory failure. Patient was tried on NIPPV but was not compliant and was ineffective. Patient was evaluated by pulmonology and patient was placed on AVAPS but did not show any improvement. 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 Patient was stayed on antibiotics and also started on diuretics. Post intubation patient became hypotensive and required vasopressors for a brief period of time. Patient also has history of AFib but rate was controlled. He was on Eliquis. Diabetes is managed by insulin. A right IJ central venous catheter was placed and a left radial arterial line was placed. Next day I spoke to theology professor and requested bronchoscopy to clear out secretions and suction the left side to help open up the left lung. Patient was also placed on left lung up and was started on CPT along with Pulmozyme dornase and bronchodilators. Patient had bronchoscopy done on 11/29 All these interventions led to improvement of aeration of the left lung. Patient was on high PEEP due to morbid obesity and initially on high FiO2. Over the course of the hospitalization his hypoxia improved with improvement in FiO2. Patient was diuresed daily. He grew out Pseudomonas and was treated with appropriate antibiotics. He finished course of antibiotics. Later in the course patient again developed fever and sputum culture grew out Staph aureus. Id was consulted and patient was started on vancomycin. Patient remained on ventilator for close to 2 weeks and failed weaning trials. After discussion the family issues made to proceed with trach and PEG. GI was consulted and patient had a PEG tube placed. Unfortunately ENT was unable to do tracheostomy due to patient's body habitus. Patient was evaluated by 2 different ENT physicians at [facility] and they recommended transfer to tertiary facility. Dr. Feliz spoke to ENT at [facility] who were willing to attempt tracheostomy. I spoke to MICU physician and patient accepted. Patient's daughter was agreeable to transfer. Patient was transferred on 12/13 in stable condition. Patient Condition: Gaurded Prognosis Time Spent with Patient Time attestation: Total time spent providing and/or coordinating transfer services: Total time spent: Less than 30 minutes Exam Narrative: General: Significantly obese gentleman, currently intubated, sedated in no acute distress HEENT:? Pupils equal and reactive, sclera is clear, ETT in place Neck:? Thick and short neck Respiratory:? Decreased air entry bilaterally, no wheezing. Breath sounds are improved on the left side but still less than as compared to right side Chest: Left breast is larger than the right, induration, erythema and warmth has improved Cardiac:? Distant heart sounds, irregularly irregular, rate control Abdomen:? Morbidly obese, indurated and firm on the left side with pitting edema, right side is softer with less edema, according the daughter patient prefers to lay on the left side, causing possible dependent edema and swelling. Hypoactive bowel sounds, tympanic on percussion Extremities:? Edema is improving in bilateral lower extremities, palpable pedal pulses Neuro:? Patient is intubated, on propofol and Precedex infusion patient is calm, awake, nods to questions follows simple commands in lower extremities, moves all extremities spontaneously Skin:? Bruising noted on upper extremities, torso, chronic venous stasis changes on bilateral lower extremity Psych:? Unable to assess at this time DS: Data Data Completed and Pending Labs on day of discharge: Labs from last 24 hours 12/13/24 12/13/24 12/13/24 21:19 18:09 18:04 APTT 73.7 H POC Capillary Glucose 86 Vancomycin Trough 21.6 H
== END 2024-12-13 23:47 | disposition short-term general hospital (02) | DRG 207 ==
LOC: ANHED 06:32 → ANHIMU 07:34 → ANHICU 11-28 05:12
PROVIDERS: General Practice; Internal Medicine; Internal Medicine Critical Care Medicine; Internal Medicine Gastroenterology; Otolaryngology; Admitting Provider Internal Medicine; Emergency Provider Emergency Medicine; PCP Internal Medicine; Visit Provider Internal Medicine
PROC: 0DP08DZ Removal of Intraluminal Device from Upper Intestinal Tract, Via Natural or Artificial Opening Endoscopic (ICD-10-PCS; CPT 43247; principal; 2024-12-12 12:00)
DX: J44.0 Chronic obstructive pulmonary disease with (acute) lower respiratory infection (principal); J96.21 Acute and chronic respiratory failure with hypoxia; J96.22 Acute and chronic respiratory failure with hypercapnia; J15.1 Pneumonia due to Pseudomonas; Z68.43 Body mass index [BMI] 50.0-59.9, adult; E66.2 Morbid (severe) obesity with alveolar hypoventilation; J98.11 Atelectasis; K56.7 Ileus, unspecified; J44.1 Chronic obstructive pulmonary disease with (acute) exacerbation; I95.9 Hypotension, unspecified; E78.5 Hyperlipidemia, unspecified; I48.91 Unspecified atrial fibrillation; I10 Essential (primary) hypertension; T17.990A Other foreign object in respiratory tract, part unspecified in causing asphyxiation, initial encounter; E87.5 Hyperkalemia; B95.62 Methicillin resistant Staphylococcus aureus infection as the cause of diseases classified elsewhere; E11.9 Type 2 diabetes mellitus without complications; L30.9 Dermatitis, unspecified; Z91.148 Patient's other noncompliance with medication regimen for other reason; Z87.891 Personal history of nicotine dependence; Z99.81 Dependence on supplemental oxygen; Z66 Do not resuscitate; B96.5 Pseudomonas (aeruginosa) (mallei) (pseudomallei) as the cause of diseases classified elsewhere; K59.09 Other constipation; R60.0 Localized edema; Z53.8 Procedure and treatment not carried out for other reasons
CPT/HCPCS: 31500; 36415; 36569; 36600; 71045; 74019; 80048; 80053; 80202; 82375; 82550; 82805; 82948; 83050; 83605; 83690; 83735; 83880; 84100; 84478; 85018; 85025; 85027; 85055; 85610; 85730; 86140; 87040; 87070; 87086; 87186; 87205; 87449; 87637; 87641; 87899; 93005; 93970; 94002; 94003; 94640; 94667; 94669; 96365; 96367; 96375; 99285; A9270; C1751; J0456; J0692; J0696; J1644; J1741; J1815; J1836; J1938; J1956; J2003; J2185; J2250; J2371; J2470; J2704; J2919; J3010; J3373; J3475; J3480; J7030; J7050; J7512; J7639